=== PATIENT | male | born 1950 | race Two or more races ===

== ENCOUNTER → 2020-12-22 14:51 | Outpatient (BNV) | payer MEDICARE, MEDICAID, SELFPAY | PROVIDERS: PCP Internal Medicine; Visit Provider Internal Medicine Medical Oncology | DX: D68.61 Antiphospholipid syndrome (principal) | CPT/HCPCS: 99212; 99213; 99214 ==

== ENCOUNTER 2021-01-02 06:10 | Outpatient (REF) | payer MEDICARE, MEDICAID, OTHER, SELFPAY ==
[2021-01-02 07:19] LABS: Basophils Percent Auto 0.8 % (0-2); MANUAL DIFF FLAG SCAN; Monocytes Absolute Auto 0.2 X10*3/uL (0.1-1.2); PLT CLUMP 1; SCAN SMEAR FLAG 1
[2021-01-02 07:21] LABS: Eosinophils Absolute Auto 0.1 X10*3/uL (0.0-0.4); Eosinophils Percent Auto 4.2 % (0-4); Hematocrit 43.8 % (42-52); Hemoglobin 14.4 g/dl (14.0-18.0); Lymphocytes Absolute Auto 0.6 X10*3/uL (1.2-4.9); Lymphocytes Percent Auto 22.3 % (20-40); Mean Corpuscular HGB Conc 32.9 g/dl (31.0-36.0); Mean Corpuscular Hemoglobin 28.9 pg (27.0-33.0); Mean Corpuscular Volume 87.8 fL (80-98); Mean Platelet Volume 11.5 fL (9.4-12.4); Monocytes Percent Auto 9.1 % (2-11); Neutrophils Absolute Auto 1.7 X10*3/uL (2.0-8.3); Neutrophils Percent Auto 63.6 % (45-73); Red Blood Count 4.99 X10*6/uL (4.60-5.80); Red Cell Distribution Width 13.2 % (11.0-16.0); White Blood Count 2.6 X10*3/uL (4.8-10.8)
[2021-01-02 07:27] LABS: Platelet Count 38 X10*3/uL (160-400)
[2021-01-02 07:31] LABS: D Dimer < 200 NG/ML
[2021-01-02 07:50] LABS: Alanine Aminotransferase 42 U/L (0-40); Albumin Level 4.2 g/dL (3.5-5.0); Alkaline Phosphatase 58 U/L (39-117); Anion Gap 14 (12-20); Aspartate Amino Transferase 38 U/L (5-37); Bilirubin Total 2.9 mg/dL (0.0-1.0); Blood Urea Nitrogen 26 mg/dL (9-16); Calcium 9.2 mg/dL (8.4-10.2); Carbon Dioxide 25 mmol/L (22-29); Chloride 105 mmol/L (96-108); Estimated Glomerular Filt Rate > 60; Glucose Random 143 mg/dL (60-115); Potassium 4.7 mmol/L (3.3-5.1); Sodium 139 mmol/L (135-145); Total Protein 7.9 g/dL (6.5-8.0)
[2021-01-02 08:10] LABS: SLIDE REVIEW VERIFIED
== END 2021-01-02 06:11 | disposition home or self-care (01) ==
LOC: HO.LAB 06:10
PROVIDERS: PCP Internal Medicine; Visit Provider Internal Medicine Medical Oncology
DX: Z86.718 Personal history of other venous thrombosis and embolism (principal)
CPT/HCPCS: 36415; 80053; 85025; 85379

== ENCOUNTER 2021-08-18 07:04 | Emergency (ER) | payer MEDICARE, OTHER, SELFPAY ==
[2021-08-18 07:12] VITALS: BP 140/73; PULSE 64; RESP 16; TEMP 36.2; O2SAT 97; BMI 24.3
[2021-08-18 07:52] LABS: MANUAL DIFF FLAG SCAN; Monocytes Absolute Auto 0.2 X10*3/uL (0.1-1.2); PLT CLUMP 1; SCAN SMEAR FLAG 1
[2021-08-18 07:54] LABS: Basophils Percent Auto 1.1 % (0-2); Eosinophils Absolute Auto 0.1 X10*3/uL (0.0-0.4); Eosinophils Percent Auto 3.7 % (0-4); Hematocrit 43.6 % (42-52); Hemoglobin 14.2 g/dl (14.0-18.0); Imm Gran Abs Auto 0.01 X10*3/uL (0.00-0.03); Imm Gran Pct Auto 0.4 % (0.0-0.4); Lymphocytes Absolute Auto 0.6 X10*3/uL (1.2-4.9); Mean Corpuscular HGB Conc 32.6 g/dl (31.0-36.0); Monocytes Percent Auto 8.5 % (2-11); Neutrophils Absolute Auto 1.8 X10*3/uL (2.0-8.3); Neutrophils Percent Auto 65.3 % (45-73); Red Blood Count 5.07 X10*6/uL (4.60-5.80); Red Cell Distribution Width 13.6 % (11.0-16.0); White Blood Count 2.7 X10*3/uL (4.8-10.8)
[2021-08-18 08:04] LABS: Anion Gap 14 (12-20); Blood Urea Nitrogen 18 mg/dL (9-16); Carbon Dioxide 20 mmol/L (22-29); Chloride 109 mmol/L (96-108); Creatinine Clr Calc Pharmacy 69.3; Estimated Glomerular Filt Rate > 60; Glucose Random 191 mg/dL (60-115); Potassium 4.8 mmol/L (3.3-5.1); Sodium 138 mmol/L (135-145)
[2021-08-18 08:17] LABS: SLIDE REVIEW VERIFIED
--- NOTE | 2021-08-18 10:09 | ED.GIBLEED ---
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 Patient states for the past 6 days he has had blood on the toilet paper when he wipes, he has not noticed any blood in the toilet but states sometimes his bottom feels wet and he wipes it away and there is blood. 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 Patient denies any back pain abdominal pain fevers, black or bloody stools. Related Data Home Medications Medication Instructions Recorded Confirmed aspirin 81 mg tablet,delayed 1 tab PO DAILY 12/22/20 12/22/20 release atorvastatin 40 mg tablet 1 tab PO BEDTIME 12/22/20 12/22/20 brimonidine 0.2 % eye drops 2 drp OPHTHALMIC (EYE) DAILY 12/22/20 12/22/20 entecavir 0.5 mg tablet 1 tab PO DAILY 12/22/20 12/22/20 losartan 25 mg tablet 1 tab PO DAILY 12/22/20 12/22/20 magnesium oxide 800 mg PO DAILY 12/22/20 12/22/20 tacrolimus 0.5 mg capsule, 0.5 mg PO BEDTIME 12/22/20 12/22/20 immediate-release (Prograf) tacrolimus 1 mg capsule, 1 mg PO DAILY 12/22/20 12/22/20 immediate-release (Prograf) Allergies Allergy/AdvReac Type Severity Reaction Status Date / Time lisinopril AdvReac Unknown cough Verified 07/21/18 00:00 Review of Systems Review of Systems: Yes all other systems are reviewed and are negative PMFSH Past Medical History Medical History Diabetes H/O pleural effusion H/O: CVA (cerebrovascular accident) Hepatitis C HTN (hypertension) Nephrolithiasis Surgical History H/O hernia repair History of surgery on arm Hx of colonoscopy Family History Family History Father Prostate cancer Mother Diabetes HTN (hypertension) Social History Social History Advance Directives: No Advance Directives Information Provided: No Physical Exam Vital Signs: Vital Signs: Last Vital Signs Temp 97.1 F 08/18/21 07:12 Pulse 64 08/18/21 07:12 Resp 16 08/18/21 07:12 BP 140/73 H 08/18/21 07:12 Pulse Ox 97 08/18/21 07:12 Body Mass Index 24.3 Const: General: cooperative, healthy appearing, comfortable, no acute distress and well developed Orientation/consciousness: patient oriented x3 Limitations: no limitations HENMT: Head: Yes normal to inspection Eyes: General: appearance normal, both eyes and all related structures Neck: Neck: Yes normal visual inspection and Yes full ROM Resp: Effort & Inspection: normal respiratory effort and able to speak in complete sentences Auscultation: clear to auscultation bilaterally Cardio: Rate: regular rate Rhythm: regular rhythm Heart sounds: normal S1 and S2 GI: Inspection: Yes normal to inspection Palpation (GI): Soft to palpation and nontender Rectal Exam - Male: Yes External hemorrhoid(s) present (Scant amount of blood) Skin: General skin exam: no rashes or lesions noted Neuro: General: patient oriented x3 Extrem: General: Yes normal to inspection Course Course Course Narrative: Patient is a 71-year-old male with a past medical history of HTN, diabetes, kidney stones, 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 VSS. Physical exam reveals scant amount of blood around his external hemorrhoids, positive stool guaiac test. Will discharge with instructions to follow up if bleeding gets worse and to treat his hemorrhoids with ofae-dby-abliyng medications. MDM - GI Bleed Lab Data Result diagrams: 08/18/21 07:45 08/18/21 07:45 Labs: Lab Results 08/18/21 08/18/21 Range/Units 07:45 07:45 WBC 2.7 L (4.8-10.8) X10*3/uL RBC 5.07 (4.60-5.80) X10*6/uL Hgb 14.2 (14.0-18.0) g/dl Hct 43.6 (42-52) % MCV 86.0 (80-98) fL MCH 28.0 (27.0-33.0) pg MCHC 32.6 (31.0-36.0) g/dl RDW 13.6 (11.0-16.0) % Plt Count TNP MPV Not Reportable Immature Gran % (Auto) 0.4 (0.0-0.4) % Neut % (Auto) 65.3 (45-73) % Lymph % (Auto) 21.0 (20-40) % [place] % (Auto) 8.5 (2-11) % Eos % (Auto) 3.7 (0-4) % Baso % (Auto) 1.1 (0-2) % Lymph # (Auto) 0.6 L (1.2-4.9) X10*3/uL [place] # (Auto) 0.2 (0.1-1.2) X10*3/uL Eos # (Auto) 0.1 (0.0-0.4) X10*3/uL Baso # (Auto) 0.0 (0.0-0.2) X10*3/uL Abs Immat Gran (auto) 0.01 (0.00-0.03) X10*3/uL Absolute Neuts (auto) 1.8 L (2.0-8.3) X10*3/uL Absolute Nucleated RBC 0.000 (0.0-0.012) X10*3/uL Nucleated RBC % (auto) 0.0 (0.0-0.2) /100WBC Smear Tech's Comments VERIFIED Sodium 138 (135-145) mmol/L Potassium 4.8 (3.3-5.1) mmol/L Chloride 109 H (96-108) mmol/L Carbon Dioxide 20 L (22-29) mmol/L Anion Gap 14 (12-20) BUN 18 H (9-16) mg/dL Creatinine 0.85 (0.5-1.4) mg/dL Estim Creat Clear Calc 69.3 Estimated GFR > 60 Random Glucose 191 H (60-115) mg/dL Calcium 9.0 (8.4-10.2) mg/dL Discharge Plan Discharge Clinical Impression: Bleeding external hemorrhoids Patient Disposition: Home, Self-Care Instructions: Hemorrhoids (ED) Additional Instructions: Hoy se encontr? que douglas hemorroides externas est?n sangrando. Sin embargo, calvert an?lisis de amanda est? dentro de los l?mites normales. Compre alguna crema para hemorroides de venta olga, esto ayudar? a encogerlos y deber?an dejar de sangrar. Si el sangrado persiste, consulte con calvert m?dico de atenci?n primaria para explorar otras opciones. Puede seguir tomando calvert anticoagulante. Discutido, si el sangrado empeora mucho o si desarrolla dolor abdominal o de espalda o si la amanda no es solo cm cantidad escasa en el papel higi?yenifer, regrese al departamento de emergencias. Prescriptions: No Action atorvastatin 40 mg tablet 1 tab PO BEDTIME RF: 0 aspirin 81 mg tablet,delayed release (DR/EC) 1 tab PO DAILY RF: 0 losartan 25 mg tablet 1 tab PO DAILY RF: 0 brimonidine 0.2 % drops 2 drp ophthalmic (eye) DAILY RF: 0 tacrolimus [Prograf] 1 mg Capsule 1 mg PO DAILY RF: 0 tacrolimus [Prograf] 0.5 mg Capsule 0.5 mg PO BEDTIME RF: 0 entecavir 0.5 mg tablet 1 tab PO DAILY RF: 0 magnesium oxide 400 mg magnesium Tablet 800 mg PO DAILY RF: 0 Referrals: Amauri Eric MD [Primary Care Provider] - 3 days (If your bleeding continues or gets worse) Print Language: Irish
[2021-08-18 10:46] LABS: OBS Int Ctl Valid YES; OBS1 POSITIVE (NEGATIVE)
== END 2021-08-18 10:48 | disposition home or self-care (01) ==
PROVIDERS: Physician Assistant; Emergency Provider Emergency Medicine Emergency Medical Services; PCP Internal Medicine
DX: K64.8 Other hemorrhoids (principal); K92.2 Gastrointestinal hemorrhage, unspecified; I10 Essential (primary) hypertension; E11.9 Type 2 diabetes mellitus without complications; Z79.01 Long term (current) use of anticoagulants; Z79.899 Other long term (current) drug therapy
CPT/HCPCS: 36415; 80048; 82272; 85025; 99283

== ENCOUNTER 2022-02-27 07:09 | Outpatient (REF) | payer MEDICARE, OTHER, SELFPAY ==
[2022-02-27 08:32] LABS: Basophils Percent Auto 0.4 % (0-2); Eosinophils Absolute Auto 0.1 X10*3/uL (0.0-0.4); Eosinophils Percent Auto 4.3 % (0-4); Hematocrit 42.6 % (42.0-52.0); Hemoglobin 14.5 g/dl (14.0-18.0); Imm Gran Abs Auto 0.01 X10*3/uL (0.00-0.03); Imm Gran Pct Auto 0.4 % (0.0-0.4); Lymphocytes Absolute Auto 0.6 X10*3/uL (1.2-4.9); Lymphocytes Percent Auto 25.5 % (20-40); MANUAL DIFF FLAG SCAN; Mean Corpuscular Hemoglobin 29.8 pg (27.0-33.0); Mean Corpuscular Volume 87.7 fL (80.0-98.0); Monocytes Absolute Auto 0.2 X10*3/uL (0.1-1.2); Monocytes Percent Auto 8.5 % (2-11); Neutrophils Absolute Auto 1.4 x10*3/uL (2.0-8.3); Neutrophils Percent Auto 60.9 % (45-73); PLT CLUMP 1; Red Blood Count 4.86 X10*6/uL (4.60-5.80); Red Cell Distribution Width 13.2 % (11.0-16.0); SCAN SMEAR FLAG 1
[2022-02-27 08:33] LABS: White Blood Count 2.4 X10*3/uL (4.8-10.8)
[2022-02-27 08:50] LABS: Alanine Aminotransferase 67 U/L (0-40); Albumin Level 3.7 g/dL (3.5-5.0); Alkaline Phosphatase 67 U/L (39-117); Anion Gap 13 (12-20); Aspartate Amino Transferase 53 U/L (5-37); Bilirubin Total 3.1 mg/dL (0.0-1.0); Blood Urea Nitrogen 24 mg/dL (9-16); Calcium 9.2 mg/dL (8.4-10.2); Carbon Dioxide 23 mmol/L (22-29); Chloride 107 mmol/L (96-108); Estimated Glomerular Filt Rate > 60; Glucose Random 207 mg/dL (60-115); Magnesium 1.9 mg/dL (1.6-2.6); Potassium 4.6 mmol/L (3.3-5.1); Sodium 138 mmol/L (135-145); Total Protein 7.2 g/dL (6.5-8.0)
[2022-02-27 08:52] LABS: SLIDE REVIEW VERIFIED
[2022-02-28 14:02] LABS: Tacrolimus Prograf 5.8 mcg/L
== END 2022-02-27 07:10 | disposition home or self-care (01) ==
LOC: HO.LABR 07:09
PROVIDERS: PCP Internal Medicine; Visit Provider Internal Medicine Gastroenterology
DX: Z94.4 Liver transplant status (principal); Z79.899 Other long term (current) drug therapy
CPT/HCPCS: 36415; 80053; 80197; 83735; 85025

== ENCOUNTER → 2022-03-05 12:47 | Outpatient (REF) | payer MEDICARE, OTHER, SELFPAY ==
--- NOTE | 2022-03-05 12:51 | CA_ITS ---
Transthoracic Echocardiogram Patient (Last, First, Middle): Lucas Duenas R Gender: Male Date of : 1950 Age: 72 Procedure Date: 03/05/2022 Procedure Type: Transthoracic Echocardiogram Location: OP Height: 165.1 cm Weight: 70.76 kg BSA: 1.78 m2 Heart Rate: bpm BP: 124 / 82 mmHg Java Lead Architect: NINI Referring MD: Gee Rodriguez MD Symptoms: BICUSPID AORTIC VALVE Study Quality: Fair Conclusions: - The left ventricular systolic function is normal. The calculated ejection fraction is 68% by biplane method. - There is a normal trileaflet aortic valve. There is mild calcification of the aortic valve.(previously reported to be bicuspid). Findings Left Ventricle Normal left ventricular cavity size. There is normal left ventricular wall thickness. The left ventricular systolic function is normal. The calculated ejection fraction is 68% by biplane method. There is no evidence of regional wall motion abnormalities. Diastolic function is normal for age. Right Ventricle Normal right ventricular cavity size and systolic function. Atria Both atria are normal in size. Aortic Valve There is a normal trileaflet aortic valve. There is mild calcification of the aortic valve. There is no aortic valve stenosis. There is no aortic valve regurgitation. Mitral Valve The mitral valve appears normal. There is no mitral valve regurgitation. There is no mitral valve stenosis. Pulmonic Valve The pulmonic valve is likely normal. Tricuspid Valve Normal tricuspid valve structure. There is mild tricuspid valve regurgitation. The pulmonary artery systolic pressure is normal. Great Vessels The asc aorta is normal in size. Venous The inferior vena cava is normal in size and collapses greater than 50% with inspiration. Pericardium/Pleural There is a trivial pericardial effusion. Prior Study Comparison Changes noted compared to prior study dated: 07/16/2019. See comments on aortic valve. Measurements 2D Linear Measurements IVSd: 0.80 0.6-0.9/0.6-1.0 cm LVIDd: 4.24 3.9-5.3/4.2-5.9 cm LVIDd Index: 2.38 2.4-3.2/2.2-3.1 cm/m2 LVIDs: 2.58 2.0-3.6 cm LVPWd: 0.90 0.7-1.1 cm LA Diam: 2.30 2.7-3.8/3.0-4.0 cm LAIDs Index: 1.29 1.5-2.3 cm/m2 LV Mass: 137.92 67-162/88-224 g LV Mass Index: 77.49 43-95/49-115 g/m2 LVOT Diam: 1.80 3.0+(-)1.3 cm 2D Systolic Function EF 4C: 67.80 >55% EF 2C: 66.80 >55% EF BiP: 67.60 >55% Mitral Valve MV Pk E: 0.60 MV PK A: 0.87 MV Decel Time: 308.00 E/A: 0.70 E'Lateral: 8.05 E'Medial: 7.94 E/E' Med: 7.60 E/E' Lat: 7.50 PHT: 90.00 MVA PHT: 2.44 Decel [place]: 1.96 Aortic Valve AoV Pk Jaguar: 1.82 AoV Mn Jaguar: 1.14 AoV VTI: 0.37 AoV Pk Grad: 13.00 Aov Mn Grad: 6.00 JUAN ALBERTO Cont.VTI: 1.76 LVOT LVOT Pk Jaguar: 1.22 LVOT Mn Jaguar: 0.88 LVOT VTI: 0.26 LVOT Pk Grad: 6.00 LVOT Mn Grad: 3.00 LVOT Diam: 1.80 LVOT Area: 2.54 Diastolic Function MV Pk E: 0.60 MV Pk A: 0.87 E/A: 0.70 E'Medial: 7.94 E/E' Med: 7.60 E' Laterial: 8.05 E/E' Lat: 7.50 Right Ventricle TAPSE (mm): 32.60 TVS' Jaguar: 17.40 Tricuspid Valve TR Pk Jaguar: 2.70 TR Pk Grad: 29.00 RA Press: 3.00 RVSP: 32.00 Great Vessels Aorta Sinus of Valsalva: 2.70 2.0-3.[address] [place]: 1.94 1.7-3.4 cm Ao Asc: 2.70 2.1-3.4 cm Ao Arch: 2.90 Updated in Other Vendor System with Status of Final Surinder Dillon MD electronically signed on 03/06/2022 10:15:55 AM with status of Final
== END ==
LOC: HO.CARD 12:47
PROVIDERS: PCP Internal Medicine; Visit Provider Internal Medicine Cardiovascular Disease
DX: I35.1 Nonrheumatic aortic (valve) insufficiency (principal)
CPT/HCPCS: 93306

== ENCOUNTER 2022-03-29 06:31 | Outpatient (REF) | payer MEDICARE, OTHER, SELFPAY ==
[2022-03-29 06:51] LABS: MANUAL DIFF FLAG NO
[2022-03-29 07:34] LABS: Basophils Percent Auto 1.1 % (0-2); Eosinophils Absolute Auto 0.1 X10*3/uL (0.0-0.4); Hematocrit 42.3 % (42.0-52.0); Hemoglobin 14.2 g/dl (14.0-18.0); Imm Gran Abs Auto 0.01 X10*3/uL (0.00-0.03); Imm Gran Pct Auto 0.4 % (0.0-0.4); Lymphocytes Absolute Auto 0.7 X10*3/uL (1.2-4.9); Lymphocytes Percent Auto 24.8 % (20-40); Mean Corpuscular HGB Conc 33.6 g/dl (31.0-36.0); Mean Corpuscular Volume 89.4 fL (80.0-98.0); Monocytes Absolute Auto 0.2 X10*3/uL (0.1-1.2); Monocytes Percent Auto 8.4 % (2-11); Neutrophils Absolute Auto 1.7 x10*3/uL (2.0-8.3); Neutrophils Percent Auto 61.3 % (45-73); Red Blood Count 4.73 X10*6/uL (4.60-5.80); Red Cell Distribution Width 13.5 % (11.0-16.0); White Blood Count 2.7 X10*3/uL (4.8-10.8)
[2022-03-29 07:56] LABS: Alanine Aminotransferase 64 U/L (0-40); Albumin Level 3.6 g/dL (3.5-5.0); Alkaline Phosphatase 75 U/L (39-117); Anion Gap 12 (12-20); Aspartate Amino Transferase 57 U/L (5-37); Bilirubin Total 2.7 mg/dL (0.0-1.0); Blood Urea Nitrogen 22 mg/dL (9-16); Calcium 9.3 mg/dL (8.4-10.2); Carbon Dioxide 24 mmol/L (22-29); Chloride 108 mmol/L (96-108); Estimated Glomerular Filt Rate > 60; Glucose Random 184 mg/dL (60-115); Magnesium 1.6 mg/dL (1.6-2.6); Potassium 4.7 mmol/L (3.3-5.1); Sodium 139 mmol/L (135-145); Total Protein 7.3 g/dL (6.5-8.0)
[2022-03-30 14:21] LABS: Tacrolimus Prograf 4.5 mcg/L
== END 2022-03-29 06:32 | disposition home or self-care (01) ==
LOC: HO.LABR 06:31
PROVIDERS: PCP Internal Medicine; Visit Provider Internal Medicine Gastroenterology
DX: Z94.4 Liver transplant status (principal); Z79.899 Other long term (current) drug therapy
CPT/HCPCS: 36415; 80053; 80197; 83735; 85025

== ENCOUNTER 2022-05-17 06:07 | Outpatient (REF) | payer MEDICARE, OTHER, SELFPAY ==
[2022-05-17 07:01] LABS: Basophils Percent Auto 0.4 % (0-2); Eosinophils Absolute Auto 0.1 X10*3/uL (0.0-0.4); Eosinophils Percent Auto 3.5 % (0-4); Hematocrit 40.4 % (42.0-52.0); Hemoglobin 13.8 g/dl (14.0-18.0); Imm Gran Abs Auto 0.01 X10*3/uL (0.00-0.03); Imm Gran Pct Auto 0.4 % (0.0-0.4); Lymphocytes Absolute Auto 0.7 X10*3/uL (1.2-4.9); Lymphocytes Percent Auto 29.1 % (20-40); MANUAL DIFF FLAG SCAN; Mean Corpuscular HGB Conc 34.2 g/dl (31.0-36.0); Mean Corpuscular Hemoglobin 30.8 pg (27.0-33.0); Mean Corpuscular Volume 90.2 fL (80.0-98.0); Monocytes Absolute Auto 0.2 X10*3/uL (0.1-1.2); Monocytes Percent Auto 8.7 % (2-11); Neutrophils Absolute Auto 1.3 x10*3/uL (2.0-8.3); Neutrophils Percent Auto 57.9 % (45-73); Red Blood Count 4.48 X10*6/uL (4.60-5.80); Red Cell Distribution Width 13.2 % (11.0-16.0); SCAN SMEAR FLAG 1
[2022-05-17 07:04] LABS: White Blood Count 2.3 X10*3/uL (4.8-10.8)
[2022-05-17 07:22] LABS: Alanine Aminotransferase 65 U/L (0-40); Albumin Level 3.8 g/dL (3.5-5.0); Alkaline Phosphatase 80 U/L (39-117); Anion Gap 11 (12-20); Aspartate Amino Transferase 53 U/L (5-37); Bilirubin Total 2.7 mg/dL (0.0-1.0); Blood Urea Nitrogen 23 mg/dL (9-16); Calcium 8.9 mg/dL (8.4-10.2); Carbon Dioxide 23 mmol/L (22-29); Chloride 109 mmol/L (96-108); Estimated Glomerular Filt Rate > 60; Glucose Random 154 mg/dL (60-115); Magnesium 1.7 mg/dL (1.6-2.6); Potassium 4.5 mmol/L (3.3-5.1); Sodium 138 mmol/L (135-145); Total Protein 7.5 g/dL (6.5-8.0)
[2022-05-17 07:42] LABS: Mean Platelet Volume 12.6 fL (9.4-12.4); Platelet Count 25 X10*3/uL (160-400); SLIDE REVIEW VERIFIED
[2022-05-19 10:11] LABS: Tacrolimus Prograf 6.1 mcg/L
== END 2022-05-17 06:08 | disposition home or self-care (01) ==
LOC: HO.LABR 06:07
PROVIDERS: PCP Internal Medicine; Visit Provider Internal Medicine Gastroenterology
DX: Z94.4 Liver transplant status (principal); Z79.899 Other long term (current) drug therapy
CPT/HCPCS: 36415; 80053; 80197; 83735; 85025

== ENCOUNTER 2022-08-27 13:43 | Outpatient (REF) | payer MEDICARE, OTHER, SELFPAY ==
[2022-08-27 14:12] LABS: Basophils Percent Auto 0.3 % (0-2); Eosinophils Absolute Auto 0.1 X10*3/uL (0.0-0.4); Eosinophils Percent Auto 2.6 % (0-4); Hemoglobin 13.2 g/dl (14.0-18.0); Imm Gran Abs Auto 0.01 X10*3/uL (0.00-0.03); Imm Gran Pct Auto 0.3 % (0.0-0.4); Lymphocytes Absolute Auto 0.5 X10*3/uL (1.2-4.9); Lymphocytes Percent Auto 14.9 % (20-40); MANUAL DIFF FLAG SCAN; Mean Corpuscular HGB Conc 33.8 g/dl (31.0-36.0); Mean Corpuscular Hemoglobin 29.7 pg (27.0-33.0); Mean Corpuscular Volume 87.8 fL (80.0-98.0); Monocytes Absolute Auto 0.3 X10*3/uL (0.1-1.2); Monocytes Percent Auto 10.9 % (2-11); Neutrophils Absolute Auto 2.1 x10*3/uL (2.0-8.3); PLT CLUMP 1; Red Blood Count 4.44 X10*6/uL (4.60-5.80); Red Cell Distribution Width 12.7 % (11.0-16.0); SCAN SMEAR FLAG 1
[2022-08-27 14:56] LABS: Platelet Count 45 X10*3/uL (160-400); SLIDE REVIEW VERIFIED
[2022-08-27 15:44] LABS: Alanine Aminotransferase 44 U/L (0-40); Albumin Level 3.7 g/dL (3.5-5.0); Alkaline Phosphatase 78 U/L (39-117); Anion Gap 14 (12-20); Aspartate Amino Transferase 39 U/L (5-37); Bilirubin Total 3.7 mg/dL (0.0-1.0); Blood Urea Nitrogen 19 mg/dL (9-16); Calcium 9.5 mg/dL (8.4-10.2); Carbon Dioxide 24 mmol/L (22-29); Chloride 103 mmol/L (96-108); Estimated Glomerular Filt Rate > 60; Glucose Random 215 mg/dL (60-115); Magnesium 1.3 mg/dL (1.6-2.6); Potassium 4.6 mmol/L (3.3-5.1); Sodium 136 mmol/L (135-145); Total Protein 7.2 g/dL (6.5-8.0)
[2022-08-29 22:22] LABS: TS Negative Control Passed; TS Panel A 0; TS Panel B 1; TS Positive Control Passed; TSpotTB Negative (Negative)
== END 2022-08-27 13:44 | disposition home or self-care (01) ==
LOC: HO.LAB 13:43
PROVIDERS: PCP Internal Medicine; Visit Provider Internal Medicine Gastroenterology
DX: Z11.1 Encounter for screening for respiratory tuberculosis (principal); Z94.4 Liver transplant status; Z79.899 Other long term (current) drug therapy; Z20.1 Contact with and (suspected) exposure to tuberculosis
CPT/HCPCS: 36415; 80053; 80197; 83735; 84100; 85025; 86481

== ENCOUNTER 2022-11-15 12:10 | Outpatient (REF) | payer MEDICARE, OTHER, SELFPAY ==
[2022-11-15 13:04] LABS: Basophils Percent Auto 0.4 % (0-2); Eosinophils Absolute Auto 0.1 X10*3/uL (0.0-0.4); Eosinophils Percent Auto 3.9 % (0-4); Lymphocytes Absolute Auto 0.5 X10*3/uL (1.2-4.9); Lymphocytes Percent Auto 16.6 % (20-40); MANUAL DIFF FLAG SCAN; Mean Corpuscular HGB Conc 33.3 g/dl (31.0-36.0); Mean Corpuscular Hemoglobin 29.1 pg (27.0-33.0); Mean Corpuscular Volume 87.2 fL (80.0-98.0); Monocytes Absolute Auto 0.2 X10*3/uL (0.1-1.2); Monocytes Percent Auto 6.7 % (2-11); Neutrophils Absolute Auto 2.1 x10*3/uL (2.0-8.3); Neutrophils Percent Auto 72.4 % (45-73); PLT CLUMP 1; Red Blood Count 4.47 X10*6/uL (4.60-5.80); Red Cell Distribution Width 14.6 % (11.0-16.0); SCAN SMEAR FLAG 1
[2022-11-15 13:17] LABS: Alanine Aminotransferase 43 U/L (0-40); Albumin Level 3.6 g/dL (3.5-5.0); Alkaline Phosphatase 104 U/L (39-117); Anion Gap 11 (12-20); Aspartate Amino Transferase 33 U/L (5-37); Bilirubin Total 3.8 mg/dL (0.0-1.0); Blood Urea Nitrogen 30 mg/dL (9-16); Carbon Dioxide 19 mmol/L (22-29); Chloride 111 mmol/L (96-108); Estimated Glomerular Filt Rate 45; Glucose Random 247 mg/dL (60-115); Magnesium 1.6 mg/dL (1.6-2.6); Phosphorus 3.5 mg/dL (2.7-4.5); Sodium 136 mmol/L (135-145); Total Protein 7.4 g/dL (6.5-8.0)
[2022-11-15 13:18] LABS: White Blood Count 2.8 X10*3/uL (4.8-10.8)
[2022-11-15 13:19] LABS: Platelet Count 34 X10*3/uL (160-400); SLIDE REVIEW VERIFIED
[2022-11-15 14:40] LABS: Creatinine, mg/dL 56.64
[2022-11-15 19:17] LABS: Creatinine, 24Hr Urine 0.9 G/Day (1.0-2.0); Total Volume 24 Hour Urine 1550 mL
[2022-11-16 17:23] LABS: Calcium, 24 Hr Urine 37 mg/24 h; Calcium/Creatinine Ratio 43 mg/g creat (30-210); Creatinine 24Hr Urine 0.87 g/24 h (0.50-2.15)
[2022-11-17 10:03] LABS: Tacrolimus Prograf 9.3 mcg/L
[2022-11-21 12:13] LABS: Testosterone, Total 492 ng/dL (250-1100)
== END 2022-11-15 12:11 | disposition home or self-care (01) ==
LOC: HO.LAB 12:10
PROVIDERS: Absent Provider Internal Medicine Endocrinology, Diabetes & Metabolism; PCP Internal Medicine; Visit Provider Internal Medicine Gastroenterology
DX: N20.0 Calculus of kidney (principal); Z94.4 Liver transplant status; Z79.899 Other long term (current) drug therapy
CPT/HCPCS: 36415; 80053; 80197; 82340; 82570; 83735; 84100; 84403; 85025

== ENCOUNTER 2022-12-12 07:39 | Outpatient (REF) | payer MEDICARE, OTHER, SELFPAY ==
[2022-12-12 11:41] LABS: CDiff Gene PCR NEGATIVE (Negative)
== END 2022-12-12 07:40 | disposition home or self-care (01) ==
LOC: HO.LNP 07:39
PROVIDERS: Visit Provider Internal Medicine Gastroenterology
DX: K59.1 Functional diarrhea (principal); D64.9 Anemia, unspecified; Z94.4 Liver transplant status
CPT/HCPCS: 87493

== ENCOUNTER 2022-12-18 06:28 | Outpatient (REF) | payer MEDICARE, SELFPAY ==
[2022-12-18 07:44] LABS: Hemoglobin 13.9 g/dl (14.0-18.0); Imm Gran Abs Auto 0.01 X10*3/uL (0.00-0.03); Imm Gran Pct Auto 0.3 % (0.0-0.4); MANUAL DIFF FLAG SCAN; Monocytes Absolute Auto 0.3 X10*3/uL (0.1-1.2); SCAN SMEAR FLAG 1
[2022-12-18 07:46] LABS: Basophils Percent Auto 0.7 % (0-2); Eosinophils Absolute Auto 0.1 X10*3/uL (0.0-0.4); Hematocrit 41.4 % (42.0-52.0); Lymphocytes Absolute Auto 0.7 X10*3/uL (1.2-4.9); Lymphocytes Percent Auto 24.9 % (20-40); Mean Corpuscular HGB Conc 33.6 g/dl (31.0-36.0); Mean Corpuscular Hemoglobin 29.5 pg (27.0-33.0); Mean Corpuscular Volume 87.9 fL (80.0-98.0); Monocytes Percent Auto 9.4 % (2-11); Neutrophils Absolute Auto 1.8 x10*3/uL (2.0-8.3); Neutrophils Percent Auto 60.7 % (45-73); PLT ABN DIST 1; PLT CLUMP 1; Red Blood Count 4.71 X10*6/uL (4.60-5.80)
[2022-12-18 08:29] LABS: Alanine Aminotransferase 72 U/L (0-40); Albumin Level 3.6 g/dL (3.5-5.0); Alkaline Phosphatase 108 U/L (39-117); Anion Gap 14 (12-20); Aspartate Amino Transferase 70 U/L (5-37); Bilirubin Total 4.4 mg/dL (0.0-1.0); Blood Urea Nitrogen 33 mg/dL (9-16); Calcium 9.4 mg/dL (8.4-10.2); Carbon Dioxide 21 mmol/L (22-29); Chloride 108 mmol/L (96-108); Estimated Glomerular Filt Rate 55; Glucose Random 185 mg/dL (60-115); Magnesium 1.5 mg/dL (1.6-2.6); Potassium 4.1 mmol/L (3.3-5.1); Sodium 139 mmol/L (135-145); Total Protein 7.4 g/dL (6.5-8.0)
[2022-12-18 08:35] LABS: Platelet Count 35 X10*3/uL (160-400); SLIDE REVIEW VERIFIED
[2022-12-18 09:21] LABS: CDiff Gene PCR NEGATIVE (Negative)
[2022-12-18 11:37] LABS: Adenovirus F 40/41 Not Detected (Not Detect.); Astrovirus Not Detected (Not Detect.); Campylobacter Not Detected (Not Detect.); Cryptosporidium Not Detected (Not Detect.); Cyclospora cayetanensis Not Detected (Not Detect.); E. coli EAEC Not Detected (Not Detect.); E. coli EPEC Not Detected (Not Detect.); E. coli ETEC Not Detected (Not Detect.); E. coli STEC Not Detected (Not Detect.); Entamoeba histolytica Not Detected (Not Detect.); Giardia lamblia Not Detected (Not Detect.); Norovirus GI/GII Not Detected (Not Detect.); Plesiomonas shigelloides Not Detected (Not Detect.); Rotavirus A Not Detected (Not Detect.); Salmonella Not Detected (Not Detect.); Sapovirus Not Detected (Not Detect.); Shigella sp./EIEC Not Detected (Not Detect.); Vibrio Not Detected (Not Detect.); Vibrio Cholerae Not Detected (Not Detect.); Yersinia enterocolitica Not Detected (Not Detect.)
[2022-12-19 11:05] LABS: Tacrolimus Prograf 8.8 NG/ML ((5-20))
== END 2022-12-18 06:29 | disposition home or self-care (01) ==
LOC: HO.LABR 06:28
PROVIDERS: PCP Internal Medicine; Visit Provider Internal Medicine Gastroenterology
DX: K59.1 Functional diarrhea (principal); D84.9 Immunodeficiency, unspecified; Z94.4 Liver transplant status; Z79.899 Other long term (current) drug therapy
CPT/HCPCS: 36415; 80053; 80197; 83735; 85025; 87493; 87507

== ENCOUNTER 2023-03-03 16:46 | Emergency (ER) | payer OTHER, SELFPAY ==
--- NOTE | ~2023-03-03 | CT_ITS ---
EXAMINATION: CT HEAD WITHOUT CONTRAST CLINICAL INFORMATION: Dizziness and generalized weakness COMPARISON: Previous head CT July 2016 TECHNIQUE: Contiguous axial imaging was performed from the skull base to vertex without intravenous administration of contrast. This CT examination was performed using dose optimization techniques as appropriate, variously including the following: *Automated exposure control *Adjustment of mA and/or kV according to patient size (this includes techniques or standardized protocols for targeted exams where dose is matched to indication/reason for exam; i.e. extremities or head) *Use of iterative reconstruction technique DLP: 516 mGy-cm FINDINGS: There is no evidence of an extra-axial collection. There is no evidence of intra or extra-axial hemorrhage. The ventricles and extra-axial CSF spaces are appropriate. There is nonspecific periventricular white matter disease. No mass, mass effect or infarct. Review of bone windows is normal. No skull fracture. Visualized paranasal sinuses, mastoid air cells and middle ears are clear. CT/CT head/brain wo IV con IMPRESSION: No acute findings. Nonspecific periventricular white matter disease similar to prior exams.
[2023-03-03 17:00] VITALS: BP 158/64; PULSE 75; RESP 18; TEMP 36.7; O2SAT 99; BMI 21.9
--- NOTE | 2023-03-03 17:02 | ECG_ITS ---
Test Reason : WEAKNESS Blood Pressure : / mmHG Vent. Rate : 077 BPM Atrial Rate : 077 BPM P-R Int : 168 ms QRS Dur : 076 ms QT Int : 396 ms P-R-T Axes : 024 001 037 degrees QTc Int : 448 ms Normal sinus rhythm Normal ECG When compared with ECG of 02-OCT-2018 16:31, Nonspecific T wave abnormality no longer evident in Inferior leads QT has lengthened Referred By: James Velasco Electronically Signed By:CAROLA OWODS MD
--- NOTE | 2023-03-03 17:11 | ED.GENADULT ---
HPI - General Adult General Chief complaint: Dizziness <NARDA Langley - Last Filed: 03/10/23 09:30> Stated complaint: weak dizzy hx of liver transplant <NARDA Langley - Last Filed: 03/10/23 09:30> Time Seen by Provider: 03/03/23 20:12 <NARDA Langley - Last Filed: 03/10/23 09:30> Source: patient, family, RN notes reviewed, old records reviewed, investment strategist and other (Records from 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 Patient other medical comorbidities include type 2 diabetes, hypertension, hyperlipidemia, osteoporosis, DVT previously on Xarelto but stopped due to history of esophageal varices Patient reports lightheadedness and nausea for the last 5 hours He also describes upper abdominal pain but is unable to qualify or quantify his pain. Per the patient's , the patient has had a dark stool for the last week or so. Denies any black or bloody stool Denies any fevers, chills, chest pain, shortness of breath Per outpatient records, the patient had a tips procedure during admission from 01/09/2023 to 01/16/23 at [facility] <James Beltran - Last Filed: 03/03/23 23:06> Related Data Home medications: Home Medications Medication Instructions Recorded Confirmed aspirin 81 mg tablet,delayed 1 tab PO DAILY 12/22/20 01/02/23 release atorvastatin 40 mg tablet 1 tab PO BEDTIME 12/22/20 01/02/23 brimonidine 0.2 % eye drops 2 drp ophthalmic (eye) DAILY 12/22/20 01/02/23 entecavir 0.5 mg tablet (Baraclude) 1 tab PO DAILY 12/22/20 01/02/23 losartan 25 mg tablet 1 tab PO DAILY 12/22/20 01/02/23 magnesium oxide 800 mg PO DAILY 12/22/20 01/02/23 tacrolimus 0.5 mg capsule, 0.5 mg PO BEDTIME 12/22/20 01/02/23 immediate-release (Prograf) tacrolimus 1 mg capsule, 1 mg PO DAILY 12/22/20 01/02/23 immediate-release (Prograf) glipizide 2.5 mg tablet, extended 2.5 mg PO DAILY 05/23/22 01/02/23 release 24 hr prednisone 20 mg tablet 30 mg PO DAILY 01/02/23 01/02/23 Previous Rx's Medication Instructions Recorded enoxaparin 60 mg/0.6 mL 60 mg (0.6 mL) subcut Q12H #60 mL 08/29/22 subcutaneous syringe <NARDA Langley - Last Filed: 03/10/23 09:30> Allergies/adverse reactions: Allergies Allergy/AdvReac Type Severity Reaction Status Date / Time lisinopril AdvReac Unknown cough Verified 01/02/23 15:34 <NARDA Langley - Last Filed: 03/10/23 09:30> Review of Systems Constitutional: Constitutional: Reports as per HPI, Denies chills, Denies fatigue, Denies fever(s) and Denies headache(s) <James Beltran - Last Filed: 03/03/23 23:06> ENT: Denies headache(s) <James Beltran - Last Filed: 03/03/23 23:06> Cardiovascular: Cardiovascular: Denies chest pain and Denies dyspnea <James Beltran - Last Filed: 03/03/23 23:06> Respiratory: Respiratory: Denies cough and Denies dyspnea <James Beltran - Last Filed: 03/03/23 23:06> Gastrointestinal: Gastrointestinal: Reports abdominal pain, Denies constipation, Reports nausea and Denies vomiting <James Beltran - Last Filed: 03/03/23 23:06> Genitourinary: Genitourinary: Denies difficulty urinating and Denies dysuria <James Beltran - Last Filed: 03/03/23 23:06> Neurologic: Denies headache(s) and Denies focal weakness <James Beltran - Last Filed: 03/03/23 23:06> Endocrine: Endocrine: Denies fatigue <James Beltran - Last Filed: 03/03/23 23:06> [facility] Past Medical History Medical History: Medical History Diabetes H/O pleural effusion H/O: CVA (cerebrovascular accident) Hepatitis C HTN (hypertension) Nephrolithiasis <NARDA Langley - Last Filed: 03/10/23 09:30> Surgical History: Surgical History H/O hernia repair History of surgery on arm Hx of colonoscopy <NARDA Langley - Last Filed: 03/10/23 09:30> Family History Family History: Family History Father Prostate cancer Mother Diabetes HTN (hypertension) <NARDA Langley - Last Filed: 03/10/23 09:30> Social History Social History: Social History Household Members: Spouse Housing: House Are you a primary customer care consultant to a significant other at home: No Do you presently have visiting nurse or other home services: No Alcohol intake: never Patient Tobacco Use Status: Never used Tobacco Smoked in Last 30 Days: No Use of substances other than those prescribed or required for medical reasons: No Advance Directives: No Advance Directives Information Provided: No service: No Current occupational status: employed <NARDA Langley - Last Filed: 03/10/23 09:30> Physical Exam ED Vital Signs: Vital Signs - 24 hr 03/03/23 17:00 03/03/23 20:20 Temperature 98.1 F 98.6 F Pulse Rate 75 85 Respiratory Rate 18 20 Blood Pressure 158/64 H 163/74 H Pulse Oximetry 99 100 Oxygen Delivery Method Room Air Room Air BMI result Body Mass Index 21.9 <NARDA Langley Last Filed: 03/10/23 09:30> Vital Signs - 24 hr 03/03/23 17:00 03/03/23 20:20 Temperature 98.1 F 98.6 F Pulse Rate 75 85 Respiratory Rate 18 20 Blood Pressure 158/64 H 163/74 H Pulse Oximetry 99 100 Oxygen Delivery Method Room Air Room Air BMI result Body Mass Index 21.9 <James OAlverto - Last Filed: 03/03/23 23:06> Const General: healthy appearing, comfortable, no acute distress, alert and awake < Last Filed: 03/03/23 23:06> Nutritional Appearance: well nourished < Last Filed: 03/03/23 23:06> Orientation/consciousness: patient oriented x3 < Last Filed: 03/03/23 23:06> HENMT Head: Yes normocephalic and Yes atraumatic < Last Filed: 03/03/23 23:06> Throat: Yes posterior oropharynx normal < Last Filed: 03/03/23 23:06> Eyes Eyelids: Yes eyelids normal < Last Filed: 03/03/23 23:06> Conjunctivae: conjunctivae normal < Last Filed: 03/03/23 23:06> Sclerae: sclerae normal < Last Filed: 03/03/23 23:06> Corneas: corneas normal < Last Filed: 03/03/23 23:06> Pupils: Equal, round and reactive pupils present < Last Filed: 03/03/23 23:06> EOM: EOMs intact bilaterally < Last Filed: 03/03/23 23:06> Neck Neck: Yes full ROM < Last Filed: 03/03/23 23:06> Resp Effort & Inspection: normal respiratory effort, able to speak in complete sentences, no audible wheezes and not labored <James Last Filed: 03/03/23 23:06> Auscultation: clear to auscultation bilaterally < Last Filed: 03/03/23 23:06> Cardio Rate: regular rate <James Soriay - Last Filed: 03/03/23 23:06> Rhythm: regular rhythm <James Beltran - Last Filed: 03/03/23 23:06> GI Other: Large horizontal, upper abdomen surgical scar. <James Soriay - Last Filed: 03/03/23 23:06> Inspection: No distended <James Soriay - Last Filed: 03/03/23 23:06> Palpation (GI): Soft to palpation, not firm, nontender, no guarding and not rigid <James Soriay - Last Filed: 03/03/23 23:06> Auscultation: normoactive bowel sounds <James Beltran - Last Filed: 03/03/23 23:06> Skin General skin exam: no rashes or lesions noted and elasticity normal <James Soriay - Last Filed: 03/03/23 23:06> Neuro Other: Patient is a poor historian but is able to follow commands <James Beltran - Last Filed: 03/03/23 23:06> General: patient oriented x3 <James Beltran - Last Filed: 03/03/23 23:06> Cranial nerves: Yes CN's II-XII intact bilaterally, Yes Equal, round and reactive pupils present and Yes Bilaterally intact EOM present <James Soriay - Last Filed: 03/03/23 23:06> Cognition (Neuro): normal cognition <James Beltran - Last Filed: 03/03/23 23:06> Extrem Other: Moving all extremities well without any obvious deformities <James Beltran - Last Filed: 03/03/23 23:06> Course Course Course Narrative: RME: 73 yold liver transplant patient presents to the ED for dizziness described as generalized weakness. physical exam negative for neuro deficits. labs, EKG, and head CT ordered <NARDA Langley - Last Filed: 03/10/23 09:30> Reevaluation(s) Reevaluation #1: Discussed with [facility] transfer line. The patient was accepted to the [facility] under the acceptance of Dr Elena <James Beltran - Last Filed: 03/03/23 23:06> Time: 23:05 <James Beltran - Last Filed: 03/03/23 23:06> Medications Administered Discontinued Medications Generic Name Dose Route Start Last Admin Trade Name Mayur PRN Reason Stop Dose Admin Sodium Chloride 1,000 mls @ 999 mls/hr 03/03/23 20:45 03/03/23 22:39 Ns IV 03/03/23 21:45 Infused .Q1H1M CONSTANTINO Infusion Lactulose 40 gm 03/03/23 21:55 03/03/23 23:06 Lactulose 20 Gm/30 Ml Solution PO 03/03/23 21:56 40 gm ONCE ONE Administration Ondansetron HCl 4 mg 03/03/23 20:31 03/03/23 21:08 Ondansetron Hcl 4 Mg/2 Ml Vial IVPUSH 03/03/23 20:32 4 mg ONCE ONE Administration Ondansetron HCl 4 mg 03/03/23 22:35 03/03/23 23:10 Ondansetron Hcl 4 Mg/2 Ml Vial IVPUSH 03/03/23 22:36 Not Given ONCE ONE Pantoprazole Sodium 40 mg 03/03/23 22:35 03/03/23 23:06 Pantoprazole Sodium 40 Mg/10 Ml Vial IVPUSH 03/03/23 22:36 40 mg ONCE ONE Administration <NARDA Langley - Last Filed: 03/10/23 09:30> Medications Administered Discontinued Medications Generic Name Dose Route Start Last Admin Trade Name Mayur PRN Reason Stop Dose Admin Sodium Chloride 1,000 mls @ 999 mls/hr 03/03/23 20:45 03/03/23 22:39 Ns IV 03/03/23 21:45 Infused .Q1H1M CONSTANTINO Infusion Lactulose 40 gm 03/03/23 21:55 03/03/23 23:06 Lactulose 20 Gm/30 Ml Solution PO 03/03/23 21:56 40 gm ONCE ONE Administration Ondansetron HCl 4 mg 03/03/23 20:31 03/03/23 21:08 Ondansetron Hcl 4 Mg/2 Ml Vial IVPUSH 03/03/23 20:32 4 mg ONCE ONE Administration Ondansetron HCl 4 mg 03/03/23 22:35 03/03/23 23:10 Ondansetron Hcl 4 Mg/2 Ml Vial IVPUSH 03/03/23 22:36 Not Given ONCE ONE Pantoprazole Sodium 40 mg 03/03/23 22:35 03/03/23 23:06 Pantoprazole Sodium 40 Mg/10 Ml Vial IVPUSH 03/03/23 22:36 40 mg ONCE ONE Administration <James Beltran - Last Filed: 03/03/23 23:06> Medical Decision Making Medical Decision Making MDM Narrative: 73-year-old male with past medical history significant for hepatitis C virus status post liver transplant 12 years ago presents for evaluation of upper abdominal pain, lightheadedness and nausea. He reports dark stool but is guaiac negative on exam. His hemoglobin is 10.2 with hematocrit of 30.6. Based on [facility] notes his baseline hemoglobin is around 12-13. The patient is hemodynamically stable with stable vital signs. [place] [address]. Given his recent tips procedure, possible upper GI bleed and pancytopenia I feel the patient warrants admission it would likely benefit from transfer to a liver specialist hospital. I have treated the patient with lactulose, Zofran, Protonix. I have so far withheld ceftriaxone and octreotide as the patient has not and vomiting is guaiac negative, so he does not appear to have any active variceal bleed. He does also have a history of duodenal ulcers which may be the source of the patient's dark stool in abdominal pain. <James Beltran - Last Filed: 03/03/23 23:06> Differential Diagnosis Differential Diagnoses: The differential diagnosis associated with the presentation includes <James Beltran - Last Filed: 03/03/23 23:06> Hepatic encephalopathy Upper GI bleed Esophageal varices Pancytopenia Liver cirrhosis <James Beltran - Last Filed: 03/03/23 23:06> Lab Data MDM Lab Attestation statement: I reviewed the patient's lab results. <James Beltran - Last Filed: 03/03/23 23:06> Pancytopenia, chronic transaminitis, hyperammonemia <James Beltran - Last Filed: 03/03/23 23:06> Result Diagrams: 03/03/23 17:19 03/03/23 17:19 <NARDA Langley - Last Filed: 03/10/23 09:30> Labs: Lab Results 03/03/23 03/03/23 03/03/23 Range/Units 17:19 17:19 17:19 WBC 2.5 L (4.8-10.8) X10*3/uL RBC 3.60 L D (4.60-5.80) X10*6/uL Hgb 10.2 L D (14.0-18.0) g/dl Hct 30.6 L D (42.0-52.0) % MCV 85.0 (80.0-98.0) fL MCH 28.3 (27.0-33.0) pg MCHC 33.3 (31.0-36.0) g/dl RDW 16.0 (11.0-16.0) % Plt Count 37 L (160-400) X10*3/uL MPV TNP Immature Gran % (Auto) 0.4 (0.0-0.4) % Neut % (Auto) 73.0 (45-73) % Lymph % (Auto) 14.4 L (20-40) % [place] % (Auto) 7.2 (2-11) % Eos % (Auto) 4.3 H (0-4) % Baso % (Auto) 0.7 (0-2) % Lymph # (Auto) 0.4 L (1.2-4.9) X10*3/uL [place] # (Auto) 0.2 (0.1-1.2) X10*3/uL Eos # (Auto) 0.1 (0.0-0.4) X10*3/uL Baso # (Auto) 0.0 (0.0-0.2) X10*3/uL Abs Immat Gran (auto) 0.01 (0.00-0.03) X10*3/uL Absolute Neuts (auto) 2.0 (2.0-8.3) x10*3/uL Absolute Nucleated RBC 0.000 (0.0-0.012) X10*3/uL Nucleated RBC % (auto) 0.0 (0.0-0.2) /100WBC PT (10.0-13.1) SEC INR (0.9-1.1) APTT (26.0-36.4) SEC Sodium 141 (135-145) mmol/L Potassium 4.4 (3.3-5.1) mmol/L Chloride 113 H (96-108) mmol/L Carbon Dioxide 22 (22-29) mmol/L Anion Gap 10 L (12-20) BUN 22 H (9-16) mg/dL Creatinine 1.33 (0.5-1.4) mg/dL Estim Creat Clear Calc 41.8 Estimated GFR 53 POC Glucose (60-115) mg/dL Random Glucose 339 H (60-115) mg/dL Calcium 9.1 (8.4-10.2) mg/dL Total Bilirubin 5.4 H (0.0-1.0) mg/dL AST 59 H (5-37) U/L ALT 76 H (0-40) U/L Alkaline Phosphatase 142 H (39-117) U/L Ammonia (13-55) umol/L Troponin I High Sens 10.6 (<3.5-35.0) ng/L Total Protein 6.2 L (6.5-8.0) g/dL Albumin 2.9 L (3.5-5.0) g/dL Urine Color Urine Appearance Urine pH (5.0-9.0) Ur Specific [place] (1.005-1.025) Urine Protein (Neg-Trace) mg/dL Urine Glucose (UA) (Negative) mg/dL Urine Ketones (Negative) mg/dL Urine Blood (Negative) Urine Nitrite (Negative) Ur Leukocyte Esterase (Negative) Urine RBC (0-2) /HPF Urine WBC (0-5) /HPF Ur Squamous Epith Cells (0-2) /HPF Urine Bacteria (None Seen) Hyaline Casts (0-2) /LPF Stool Occult Blood (NEGATIVE) 03/03/23 03/03/23 03/03/23 Range/Units 17:20 20:30 20:52 WBC (4.8-10.8) X10*3/uL RBC (4.60-5.80) X10*6/uL Hgb (14.0-18.0) g/dl Hct (42.0-52.0) % MCV (80.0-98.0) fL MCH (27.0-33.0) pg MCHC (31.0-36.0) g/dl RDW (11.0-16.0) % Plt Count (160-400) X10*3/uL MPV Immature Gran % (Auto) (0.0-0.4) % Neut % (Auto) (45-73) % Lymph % (Auto) (20-40) % [place] % (Auto) (2-11) % Eos % (Auto) (0-4) % Baso % (Auto) (0-2) % Lymph # (Auto) (1.2-4.9) X10*3/uL [place] # (Auto) (0.1-1.2) X10*3/uL Eos # (Auto) (0.0-0.4) X10*3/uL Baso # (Auto) (0.0-0.2) X10*3/uL Abs Immat Gran (auto) (0.00-0.03) X10*3/uL Absolute Neuts (auto) (2.0-8.3) x10*3/uL Absolute Nucleated RBC (0.0-0.012) X10*3/uL Nucleated RBC % (auto) (0.0-0.2) /100WBC PT 15.4 H (10.0-13.1) SEC INR 1.3 H (0.9-1.1) APTT 34.4 (26.0-36.4) SEC Sodium (135-145) mmol/L Potassium (3.3-5.1) mmol/L Chloride (96-108) mmol/L Carbon Dioxide (22-29) mmol/L Anion Gap (12-20) BUN (9-16) mg/dL Creatinine (0.5-1.4) mg/dL Estim Creat Clear Calc Estimated GFR POC Glucose 292 H (60-115) mg/dL Random Glucose (60-115) mg/dL Calcium (8.4-10.2) mg/dL Total Bilirubin (0.0-1.0) mg/dL AST (5-37) U/L ALT (0-40) U/L Alkaline Phosphatase (39-117) U/L Ammonia 150 H (13-55) umol/L Troponin I High Sens (<3.5-35.0) ng/L Total Protein (6.5-8.0) g/dL Albumin (3.5-5.0) g/dL Urine Color Urine Appearance Urine pH (5.0-9.0) Ur Specific [place] (1.005-1.025) Urine Protein (Neg-Trace) mg/dL Urine Glucose (UA) (Negative) mg/dL Urine Ketones (Negative) mg/dL Urine Blood (Negative) Urine Nitrite (Negative) Ur Leukocyte Esterase (Negative) Urine RBC (0-2) /HPF Urine WBC (0-5) /HPF Ur Squamous Epith Cells (0-2) /HPF Urine Bacteria (None Seen) Hyaline Casts (0-2) /LPF Stool Occult Blood (NEGATIVE) 03/03/23 03/03/23 Range/Units 21:11 21:13 WBC (4.8-10.8) X10*3/uL RBC (4.60-5.80) X10*6/uL Hgb (14.0-18.0) g/dl Hct (42.0-52.0) % MCV (80.0-98.0) fL MCH (27.0-33.0) pg MCHC (31.0-36.0) g/dl RDW (11.0-16.0) % Plt Count (160-400) X10*3/uL MPV Immature Gran % (Auto) (0.0-0.4) % Neut % (Auto) (45-73) % Lymph % (Auto) (20-40) % [place] % (Auto) (2-11) % Eos % (Auto) (0-4) % Baso % (Auto) (0-2) % Lymph # (Auto) (1.2-4.9) X10*3/uL [place] # (Auto) (0.1-1.2) X10*3/uL Eos # (Auto) (0.0-0.4) X10*3/uL Baso # (Auto) (0.0-0.2) X10*3/uL Abs Immat Gran (auto) (0.00-0.03) X10*3/uL Absolute Neuts (auto) (2.0-8.3) x10*3/uL Absolute Nucleated RBC (0.0-0.012) X10*3/uL Nucleated RBC % (auto) (0.0-0.2) /100WBC PT (10.0-13.1) SEC INR (0.9-1.1) APTT (26.0-36.4) SEC Sodium (135-145) mmol/L Potassium (3.3-5.1) mmol/L Chloride (96-108) mmol/L Carbon Dioxide (22-29) mmol/L Anion Gap (12-20) BUN (9-16) mg/dL Creatinine (0.5-1.4) mg/dL Estim Creat Clear Calc Estimated GFR POC Glucose (60-115) mg/dL Random Glucose (60-115) mg/dL Calcium (8.4-10.2) mg/dL Total Bilirubin (0.0-1.0) mg/dL AST (5-37) U/L ALT (0-40) U/L Alkaline Phosphatase (39-117) U/L Ammonia (13-55) umol/L Troponin I High Sens (<3.5-35.0) ng/L Total Protein (6.5-8.0) g/dL Albumin (3.5-5.0) g/dL Urine Color Yellow Urine Appearance Clear Urine pH 7.5 (5.0-9.0) Ur Specific [place] 1.020 (1.005-1.025) Urine Protein Negative (Neg-Trace) mg/dL Urine Glucose (UA) >=1000 H (Negative) mg/dL Urine Ketones Negative (Negative) mg/dL Urine Blood Negative (Negative) Urine Nitrite Negative (Negative) Ur Leukocyte Esterase Negative (Negative) Urine RBC 0-2 (0-2) /HPF Urine WBC 0-5 (0-5) /HPF Ur Squamous Epith Cells 0-2 (0-2) /HPF Urine Bacteria None Seen (None Seen) Hyaline Casts 0-2 (0-2) /LPF Stool Occult Blood NEGATIVE (NEGATIVE) <NARDA Langley - Last Filed: 03/10/23 09:30> Lab Results 03/03/23 03/03/23 03/03/23 Range/Units 17:19 17:19 17:19 WBC 2.5 L (4.8-10.8) X10*3/uL RBC 3.60 L D (4.60-5.80) X10*6/uL Hgb 10.2 L D (14.0-18.0) g/dl Hct 30.6 L D (42.0-52.0) % MCV 85.0 (80.0-98.0) fL MCH 28.3 (27.0-33.0) pg MCHC 33.3 (31.0-36.0) g/dl RDW 16.0 (11.0-16.0) % Plt Count 37 L (160-400) X10*3/uL MPV TNP Immature Gran % (Auto) 0.4 (0.0-0.4) % Neut % (Auto) 73.0 (45-73) % Lymph % (Auto) 14.4 L (20-40) % [place] % (Auto) 7.2 (2-11) % Eos % (Auto) 4.3 H (0-4) % Baso % (Auto) 0.7 (0-2) % Lymph # (Auto) 0.4 L (1.2-4.9) X10*3/uL [place] # (Auto) 0.2 (0.1-1.2) X10*3/uL Eos # (Auto) 0.1 (0.0-0.4) X10*3/uL Baso # (Auto) 0.0 (0.0-0.2) X10*3/uL Abs Immat Gran (auto) 0.01 (0.00-0.03) X10*3/uL Absolute Neuts (auto) 2.0 (2.0-8.3) x10*3/uL Absolute Nucleated RBC 0.000 (0.0-0.012) X10*3/uL Nucleated RBC % (auto) 0.0 (0.0-0.2) /100WBC PT (10.0-13.1) SEC INR (0.9-1.1) APTT (26.0-36.4) SEC Sodium 141 (135-145) mmol/L Potassium 4.4 (3.3-5.1) mmol/L Chloride 113 H (96-108) mmol/L Carbon Dioxide 22 (22-29) mmol/L Anion Gap 10 L (12-20) BUN 22 H (9-16) mg/dL Creatinine 1.33 (0.5-1.4) mg/dL Estim Creat Clear Calc 41.8 Estimated GFR 53 POC Glucose (60-115) mg/dL Random Glucose 339 H (60-115) mg/dL Calcium 9.1 (8.4-10.2) mg/dL Total Bilirubin 5.4 H (0.0-1.0) mg/dL AST 59 H (5-37) U/L ALT 76 H (0-40) U/L Alkaline Phosphatase 142 H (39-117) U/L Ammonia (13-55) umol/L Troponin I High Sens 10.6 (<3.5-35.0) ng/L Total Protein 6.2 L (6.5-8.0) g/dL Albumin 2.9 L (3.5-5.0) g/dL Urine Color Urine Appearance Urine pH (5.0-9.0) Ur Specific [place] (1.005-1.025) Urine Protein (Neg-Trace) mg/dL Urine Glucose (UA) (Negative) mg/dL Urine Ketones (Negative) mg/dL Urine Blood (Negative) Urine Nitrite (Negative) Ur Leukocyte Esterase (Negative) Urine RBC (0-2) /HPF Urine WBC (0-5) /HPF Ur Squamous Epith Cells (0-2) /HPF Urine Bacteria (None Seen) Hyaline Casts (0-2) /LPF Stool Occult Blood (NEGATIVE) 03/03/23 03/03/23 03/03/23 Range/Units 17:20 20:30 20:52 WBC (4.8-10.8) X10*3/uL RBC (4.60-5.80) X10*6/uL Hgb (14.0-18.0) g/dl Hct (42.0-52.0) % MCV (80.0-98.0) fL MCH (27.0-33.0) pg MCHC (31.0-36.0) g/dl RDW (11.0-16.0) % Plt Count (160-400) X10*3/uL MPV Immature Gran % (Auto) (0.0-0.4) % Neut % (Auto) (45-73) % Lymph % (Auto) (20-40) % [place] % (Auto) (2-11) % Eos % (Auto) (0-4) % Baso % (Auto) (0-2) % Lymph # (Auto) (1.2-4.9) X10*3/uL [place] # (Auto) (0.1-1.2) X10*3/uL Eos # (Auto) (0.0-0.4) X10*3/uL Baso # (Auto) (0.0-0.2) X10*3/uL Abs Immat Gran (auto) (0.00-0.03) X10*3/uL Absolute Neuts (auto) (2.0-8.3) x10*3/uL Absolute Nucleated RBC (0.0-0.012) X10*3/uL Nucleated RBC % (auto) (0.0-0.2) /100WBC PT 15.4 H (10.0-13.1) SEC INR 1.3 H (0.9-1.1) APTT 34.4 (26.0-36.4) SEC Sodium (135-145) mmol/L Potassium (3.3-5.1) mmol/L Chloride (96-108) mmol/L Carbon Dioxide (22-29) mmol/L Anion Gap (12-20) BUN (9-16) mg/dL Creatinine (0.5-1.4) mg/dL Estim Creat Clear Calc Estimated GFR POC Glucose 292 H (60-115) mg/dL Random Glucose (60-115) mg/dL Calcium (8.4-10.2) mg/dL Total Bilirubin (0.0-1.0) mg/dL AST (5-37) U/L ALT (0-40) U/L Alkaline Phosphatase (39-117) U/L Ammonia 150 H (13-55) umol/L Troponin I High Sens (<3.5-35.0) ng/L Total Protein (6.5-8.0) g/dL Albumin (3.5-5.0) g/dL Urine Color Urine Appearance Urine pH (5.0-9.0) Ur Specific [place] (1.005-1.025) Urine Protein (Neg-Trace) mg/dL Urine Glucose (UA) (Negative) mg/dL Urine Ketones (Negative) mg/dL Urine Blood (Negative) Urine Nitrite (Negative) Ur Leukocyte Esterase (Negative) Urine RBC (0-2) /HPF Urine WBC (0-5) /HPF Ur Squamous Epith Cells (0-2) /HPF Urine Bacteria (None Seen) Hyaline Casts (0-2) /LPF Stool Occult Blood (NEGATIVE) 03/03/23 03/03/23 Range/Units 21:11 21:13 WBC (4.8-10.8) X10*3/uL RBC (4.60-5.80) X10*6/uL Hgb (14.0-18.0) g/dl Hct (42.0-52.0) % MCV (80.0-98.0) fL MCH (27.0-33.0) pg MCHC (31.0-36.0) g/dl RDW (11.0-16.0) % Plt Count (160-400) X10*3/uL MPV Immature Gran % (Auto) (0.0-0.4) % Neut % (Auto) (45-73) % Lymph % (Auto) (20-40) % [place] % (Auto) (2-11) % Eos % (Auto) (0-4) % Baso % (Auto) (0-2) % Lymph # (Auto) (1.2-4.9) X10*3/uL [place] # (Auto) (0.1-1.2) X10*3/uL Eos # (Auto) (0.0-0.4) X10*3/uL Baso # (Auto) (0.0-0.2) X10*3/uL Abs Immat Gran (auto) (0.00-0.03) X10*3/uL Absolute Neuts (auto) (2.0-8.3) x10*3/uL Absolute Nucleated RBC (0.0-0.012) X10*3/uL Nucleated RBC % (auto) (0.0-0.2) /100WBC PT (10.0-13.1) SEC INR (0.9-1.1) APTT (26.0-36.4) SEC Sodium (135-145) mmol/L Potassium (3.3-5.1) mmol/L Chloride (96-108) mmol/L Carbon Dioxide (22-29) mmol/L Anion Gap (12-20) BUN (9-16) mg/dL Creatinine (0.5-1.4) mg/dL Estim Creat Clear Calc Estimated GFR POC Glucose (60-115) mg/dL Random Glucose (60-115) mg/dL Calcium (8.4-10.2) mg/dL Total Bilirubin (0.0-1.0) mg/dL AST (5-37) U/L ALT (0-40) U/L Alkaline Phosphatase (39-117) U/L Ammonia (13-55) umol/L Troponin I High Sens (<3.5-35.0) ng/L Total Protein (6.5-8.0) g/dL Albumin (3.5-5.0) g/dL Urine Color Yellow Urine Appearance Clear Urine pH 7.5 (5.0-9.0) Ur Specific [place] 1.020 (1.005-1.025) Urine Protein Negative (Neg-Trace) mg/dL Urine Glucose (UA) >=1000 H (Negative) mg/dL Urine Ketones Negative (Negative) mg/dL Urine Blood Negative (Negative) Urine Nitrite Negative (Negative) Ur Leukocyte Esterase Negative (Negative) Urine RBC 0-2 (0-2) /HPF Urine WBC 0-5 (0-5) /HPF Ur Squamous Epith Cells 0-2 (0-2) /HPF Urine Bacteria None Seen (None Seen) Hyaline Casts 0-2 (0-2) /LPF Stool Occult Blood NEGATIVE (NEGATIVE) <James Beltran - Last Filed: 03/03/23 23:06> Independent Interpretation I performed an independent interpretation of an: EKG (Sinus rhythm with a rate of 77 beats per minute. No ST segment elevations or depressions.) <James Beltran - Last Filed: 03/03/23 23:06> Discharge Plan Discharge Clinical Impression: Acute hepatic encephalopathy, Dark stools <NARDA Langley - Last Filed: 03/10/23 09:30> Patient Disposition: [facility] <NARDA Langley - Last Filed: 03/10/23 09:30> Transfer Details: [facility] <NARDA Langley - Last Filed: 03/10/23 09:30> [facility] <James Devin - Last Filed: 03/03/23 23:06> Prescriptions: No Action atorvastatin 40 mg tablet 1 tab PO BEDTIME aspirin 81 mg tablet,delayed release (DR/EC) 1 tab PO DAILY losartan 25 mg tablet 1 tab PO DAILY brimonidine 0.2 % drops 2 drp ophthalmic (eye) DAILY tacrolimus [Prograf] 1 mg Capsule 1 mg PO DAILY tacrolimus [Prograf] 0.5 mg Capsule 0.5 mg PO BEDTIME entecavir [Baraclude] 0.5 mg tablet 1 tab PO DAILY magnesium oxide 400 mg magnesium Tablet 800 mg PO DAILY glipizide 2.5 mg Tablet Extended Release 24 Hr 2.5 mg PO DAILY enoxaparin 60 mg/0.6 mL Syringe 60 mg SUBCUT Q12H Qty: 60 4RF prednisone 20 mg Tablet 30 mg PO DAILY Patient Comments: decrease dose each week <NARDA Langley - Last Filed: 03/10/23 09:30> Interventions: Acute Care Transfer Worksheet (ED) Last Done: 03/04/23 00:45 <NARDA Langley - Last Filed: 03/10/23 09:30> Discharge Date/Time: 03/04/23 00:56 <NARDA [place] - Last Filed: 03/10/23 09:30>
[2023-03-03 17:38] LABS: INTERNATIONAL NORM RATIO 1.3 (0.9-1.1); Prothrombin Time 15.4 SEC (10.0-13.1)
[2023-03-03 17:41] LABS: Partial Thromboplastin Time 34.4 SEC (26.0-36.4)
[2023-03-03 17:50] LABS: Alanine Aminotransferase 76 U/L (0-40); Albumin Level 2.9 g/dL (3.5-5.0); Alkaline Phosphatase 142 U/L (39-117); Anion Gap 10 (12-20); Aspartate Amino Transferase 59 U/L (5-37); Bilirubin Total 5.4 mg/dL (0.0-1.0); Blood Urea Nitrogen 22 mg/dL (9-16); Calcium 9.1 mg/dL (8.4-10.2); Carbon Dioxide 22 mmol/L (22-29); Chloride 113 mmol/L (96-108); Creatinine Clr Calc Pharmacy 41.8; Estimated Glomerular Filt Rate 53; Glucose Random 339 mg/dL (60-115); Potassium 4.4 mmol/L (3.3-5.1); Sodium 141 mmol/L (135-145); Total Protein 6.2 g/dL (6.5-8.0)
[2023-03-03 17:56] LABS: Troponin-I High Sensitivity 10.6 ng/L (<3.5-35.0)
[2023-03-03 18:34] LABS: MANUAL DIFF FLAG NO
[2023-03-03 18:48] LABS: Eosinophils Absolute Auto 0.1 X10*3/uL (0.0-0.4); Mean Corpuscular HGB Conc 33.3 g/dl (31.0-36.0); SCAN SMEAR FLAG 1
[2023-03-03 18:50] LABS: Basophils Percent Auto 0.7 % (0-2); Eosinophils Percent Auto 4.3 % (0-4); Hematocrit 30.6 % (42.0-52.0); Hemoglobin 10.2 g/dl (14.0-18.0); Imm Gran Abs Auto 0.01 X10*3/uL (0.00-0.03); Imm Gran Pct Auto 0.4 % (0.0-0.4); Lymphocytes Absolute Auto 0.4 X10*3/uL (1.2-4.9); Lymphocytes Percent Auto 14.4 % (20-40); Mean Corpuscular Hemoglobin 28.3 pg (27.0-33.0); Monocytes Absolute Auto 0.2 X10*3/uL (0.1-1.2); Monocytes Percent Auto 7.2 % (2-11); PLT CLUMP 1
[2023-03-03 19:08] LABS: PLT ABN DIST 1; White Blood Count 2.5 X10*3/uL (4.8-10.8)
[2023-03-03 19:09] LABS: Platelet Count 37 X10*3/uL (160-400)
[2023-03-03 20:20] VITALS: BP 163/74; PULSE 85; RESP 20; TEMP 37; O2SAT 100
--- NOTE | 2023-03-03 20:20 | MHC.EDTECH ---
ekg was done not documented
[2023-03-03 20:33] LABS: Glucose, Whole Blood 292 mg/dL (60-115)
--- NOTE | 2023-03-03 20:44 | MHC.EDTECH ---
Called [facility] for records at 2038 per James LABOY,spoke with Saravanan awaiting fax at this time.Provider aware
[2023-03-03 21:03] LABS: Ammonia 150 umol/L (13-55)
[2023-03-03] MEDS: 0.9 % Sodium Chloride 1,000 ML 999 ML IV (21:05)
[2023-03-03] MEDS: ondansetron HCL 4 MG/2 ML VIAL IVPUSH (21:08)
[2023-03-03 21:20] LABS: Appearance Urine Clear; Color Urine Yellow; Glucose Urine UA >=1000 mg/dL (Negative); Leukocyte Esterase Urine Negative (Negative); Nitrite Urine Negative (Negative); PH 7.5 (5.0-9.0); UMIC TRIGGER UACC YES; Urine Blood Negative (Negative); Urine Ketones Negative (Negative); Urine Protein Negative (Neg-Trace)
[2023-03-03 21:20] LABS: OBS Int Ctl Valid YES; OBS1 NEGATIVE (NEGATIVE)
[2023-03-03 21:26] LABS: Bacteria Urine None Seen (None Seen); Hyaline Casts Urine 0-2 /LPF (0-2); RBC Urine 0-2 /HPF (0-2); Squamous Epithelial Cell Urine 0-2 /HPF (0-2); WBC Urine 0-5 /HPF (0-5)
--- NOTE | 2023-03-03 23:00 | PC.NURSE ---
Addendum entered by Dominique Avilez 03/04/23 00:48: RN to RN report given to Tiffany, Pt will be transferred to [facility]. Pt and aware of plan. Original Note: Pt A&O to self and place and year, Pt denies any pain, but reports discomfort to ABD are, states I don't know how to explain . ABD non-tender, + bowel sounds x 4. IV line established, meds given as documented. Pts at bedside.
--- NOTE | 2023-03-03 23:00 | MHC.EDTECH ---
[facility] Transfer line called at 2244 per James LABOY.spoke to Mahnaz gave patient demographics,awaiting a call back at this time.
[2023-03-03] MEDS: Lactulose 20 GM/30 ML SOLUTION 40 GM PO (23:06)
[2023-03-03] MEDS: Pantoprazole Sodium 40 MG/10 ML VIAL IVPUSH (23:06)
--- NOTE | 2023-03-03 23:36 | MHC.EDTECH ---
Corin accepted patient at 2322. Accepted ED to ED. Oziel called for a BLS transfer at 2328 ETA within the hour.RN aware
--- NOTE | 2023-03-03 23:39 | MHC.EDTECH ---
Nurse to Nurse report EXT 2
[2023-03-04] VITALS: BP 160/66; PULSE 92; RESP 16; O2SAT 99
--- NOTE | 2023-03-04 00:25 | MHC.EDTECH ---
EMS arrived at 0021 for transport.RN aware
== END 2023-03-04 00:56 | disposition short-term general hospital (02) ==
PROVIDERS: Physician Assistant; Emergency Provider Student in an Organized Health Care Education/Training Program; PCP Internal Medicine
DX: K76.82 Hepatic encephalopathy (principal); R42 Dizziness and giddiness; R51.9 Headache, unspecified; Z79.899 Other long term (current) drug therapy
CPT/HCPCS: 36415; 70450; 80053; 81001; 82140; 82272; 82947; 84484; 85025; 85610; 85730; 93005; 96361; 96374; 96375; 99285; J2405

== ENCOUNTER 2023-05-26 13:39 | Outpatient (REF) | payer OTHER, SELFPAY | END 2023-05-26 13:40 | disposition home or self-care (01) | LOC: HO.HHCX 13:39 | PROVIDERS: Visit Provider Registered Nurse | DX: R20.0 Anesthesia of skin (principal); R20.2 Paresthesia of skin; M25.571 Pain in right ankle and joints of right foot; M25.572 Pain in left ankle and joints of left foot | CPT/HCPCS: 72110; 73610 ==

== ENCOUNTER 2023-06-02 15:20 | Outpatient (REF) | payer OTHER, SELFPAY | END 2023-06-02 15:21 | disposition home or self-care (01) | LOC: HO.HHCL 15:20 | PROVIDERS: Visit Provider Student in an Organized Health Care Education/Training Program | DX: Z13.89 Encounter for screening for other disorder (principal) ==

== ENCOUNTER 2023-06-02 15:59 | Outpatient (REF) | payer OTHER, SELFPAY ==
--- NOTE | ~2023-06-02 | XR_ITS ---
EXAMINATION: CHEST 2 VIEWS CLINICAL INFORMATION: DYSPNEA / WITH EPISODES OF SOB. COMPARISON: 10/02/2018. TECHNIQUE: PA and lateral views of the chest obtained. FINDINGS: Blunting the costophrenic angle suggests a small right and tiny left pleural effusion with associated basilar consolidation/atelectasis. Mild central vascular prominence but no overt edema. Cardiac silhouette is prominent and deviated slightly to the right due to the rotation and volume loss in the right base no pneumothorax. No acute bony abnormality. Surgical clips, TIPS shunt, and IVC filter noted. 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 XR/XR chest 2V IMPRESSION: Small right and tiny left pleural effusions with associated right greater than left basilar consolidation/atelectasis. Mild central vascular prominence but no overt edema.
[2023-06-02 17:26] LABS: Hemoglobin 10.4 g/dl (14.0-18.0); Imm Gran Abs Auto 0.01 X10*3/uL (0.00-0.03); Imm Gran Pct Auto 0.3 % (0.0-0.4); MANUAL DIFF FLAG SCAN; SCAN SMEAR FLAG 1
[2023-06-02 17:28] LABS: Basophils Percent Auto 0.3 % (0-2); Eosinophils Absolute Auto 0.1 X10*3/uL (0.0-0.4); Eosinophils Percent Auto 1.9 % (0-4); Hematocrit 32.3 % (42.0-52.0); Lymphocytes Absolute Auto 0.3 X10*3/uL (1.2-4.9); Lymphocytes Percent Auto 9.6 % (20-40); Mean Corpuscular HGB Conc 32.2 g/dl (31.0-36.0); Mean Corpuscular Hemoglobin 26.5 pg (27.0-33.0); Mean Corpuscular Volume 82.2 fL (80.0-98.0); Monocytes Absolute Auto 0.3 X10*3/uL (0.1-1.2); Monocytes Percent Auto 9.6 % (2-11); Neutrophils Absolute Auto 2.4 x10*3/uL (2.0-8.3); Neutrophils Percent Auto 78.3 % (45-73); PLT CLUMP 1; Red Blood Count 3.93 X10*6/uL (4.60-5.80); Red Cell Distribution Width 21.4 % (11.0-16.0)
[2023-06-02 17:39] LABS: PLT ABN DIST 1; Platelet Count 29 X10*3/uL (160-400); White Blood Count 3.1 X10*3/uL (4.8-10.8)
[2023-06-02 17:48] LABS: Appearance Urine Clear; Color Urine DK YELLOW; Glucose Urine UA 250 mg/dL (Negative); Leukocyte Esterase Urine Negative (Negative); Nitrite Urine Negative (Negative); Specific Gravity - Urine 1.025 (1.005-1.025); UMIC TRIGGER UA YES; Urine Blood Large (3+) (Negative); Urine Ketones Negative (Negative); Urine Protein 100 (2+) mg/dL (Neg-Trace)
[2023-06-02 17:55] LABS: SLIDE REVIEW VERIFIED
[2023-06-02 17:57] LABS: Bacteria Urine None Seen (None Seen); WBC Urine 0-5 /HPF (0-5)
[2023-06-02 18:06] LABS: Alanine Aminotransferase 319 U/L (0-40); Albumin Level 2.4 g/dL (3.5-5.0); Alkaline Phosphatase 238 U/L (39-117); Anion Gap 17 (12-20); Aspartate Amino Transferase 954 U/L (5-37); Bilirubin Direct 3.6 mg/dL (0.0-0.5); Bilirubin Total 11.3 mg/dL (0.0-1.0); Blood Urea Nitrogen 27 mg/dL (9-16); C Reactive Protein 0.76 mg/dL (< or = 0.50); Calcium 9.3 mg/dL (8.4-10.2); Carbon Dioxide 19 mmol/L (22-29); Chloride 105 mmol/L (96-108); Cholesterol 227 mg/dL; Estimated Glomerular Filt Rate 46; Ferritin 75 ng/mL (20-250); Glucose Random 281 mg/dL (60-115); HDL Cholesterol 19 mg/dL; Iron 229 mcg/dL (45-160); LDL Cholesterol Calculated 154 mg/dl; Percent Iron Saturation 90 % (15-50); Potassium 4.2 mmol/L (3.3-5.1); Sodium 137 mmol/L (135-145); Total Iron Binding Capacity 254 mcg/dL (228-428); Total Protein 6.2 g/dL (6.5-8.0); Triglycerides 272 mg/dL; Unsaturated Iron Binding < 25 ug/dL; Vitamin D 25-OH Total 29.9 ng/mL (>30)
[2023-06-02 18:12] LABS: Estimated Average Glucose 123 mg/dL; Hemoglobin A1c % 5.9 %
[2023-06-02 18:19] LABS: Erythrocyte Sedimentation Rate 25 MM/HR (0-15)
[2023-06-02 18:36] LABS: Folate 14.8 ng/mL (> or = 4.0); Vitamin B12 > 2000 pg/mL (200-900)
[2023-06-02 19:10] LABS: Lactic Acid 2.3 mmol/L (0.5-2.0)
[2023-06-02 19:11] LABS: Reflex Lactate? Lactic Acid Added
[2023-06-03 11:04] LABS: Tacrolimus Prograf 3.7 NG/ML ((5-20))
[2023-06-04 03:30] LABS: HBsAGNum1 0.28 S/CO (0.00-0.99); HIV AB/AG Nonreactive (Nonreactive); HIV Num 1 0.05 S/CO (0.00-0.99); Hepatitis B Surface Antigen Negative (Negative)
[2023-06-04 10:04] LABS: Free Prostate Spec Ag 0.4 ng/mL; Percent Free Prostate Spec Ag 25 % (calc) (>25); Prostate Specific Ag Total 1.6 ng/mL (< OR = 4.0)
[2023-06-04 16:24] LABS: HCV Log PCR <1.18 NOT DETECTED Log IU/mL (NOT DETECTED); HepC Viral Load <15 NOT DETECTED IU/mL (NOT DETECTED)
== END 2023-06-02 16:00 | disposition home or self-care (01) ==
LOC: HO.LAB 15:59
PROVIDERS: PCP Internal Medicine; Visit Provider Student in an Organized Health Care Education/Training Program
DX: Z11.4 Encounter for screening for human immunodeficiency virus [HIV] (principal); Z12.5 Encounter for screening for malignant neoplasm of prostate; M62.81 Muscle weakness (generalized); E11.65 Type 2 diabetes mellitus with hyperglycemia; R06.00 Dyspnea, unspecified; Z79.899 Other long term (current) drug therapy
CPT/HCPCS: 36415; 71046; 80053; 80061; 80197; 81001; 82248; 82306; 82550; 82607; 82728; 82746; 83036; 83540; 83605; 84154; 84443; 85025; 85652; 86140; 87340; 87389; 87522

== ENCOUNTER 2023-06-02 20:40 | Inpatient (IN) | payer MEDICARE, OTHER, SELFPAY ==
--- NOTE | ~2023-06-02 | XR_ITS ---
EXAMINATION: XR CHEST CLINICAL INFORMATION: Wheezing COMPARISON: 06/02/2023 TECHNIQUE: Frontal view of the chest was obtained. FINDINGS: Imaging limited due to rotation. Progressive probably partially loculated pleural effusion on the right is noted. Extensive parenchymal disease persists at the right base with some volume loss. Element of round atelectasis is questioned. Left lung remains grossly clear. Postoperative changes right upper quadrant again noted. No other change. XR/XR chest 1V IMPRESSION: Progressive right-sided pleural effusion. Persistent right basilar parenchymal disease. Consider CT follow-up to further characterize.
--- NOTE | ~2023-06-02 | XR_ITS ---
EXAMINATION: PORTABLE CHEST 1 VIEW CLINICAL INFORMATION: Cough. COMPARISON: 06/02/2023 chest x-ray earlier today and visualized lung bases on the 04/29/2019 CT scan. TECHNIQUE: Portable frontal view of the chest was obtained. FINDINGS: Chronic rounded masslike opacity at the right lung base with associated volume loss has been present on multiple prior studies including the 2019 CT scan. Blunting of the right costophrenic angle suggests layering small right effusion or pleural thickening again similar to prior chest x-ray. No overt edema or pneumothorax. Cardiac silhouette is prominent dilatation to the right hemithorax with associated chronic right-sided volume loss. Linear metallic density consistent with a small likely embolized IVC filter dilma is noted projecting over the left lingula of no acute significance. Surgical clips, TIPS shunt, and IVC filter partially visualized in the upper abdomen XR/XR chest 1V IMPRESSION: Chronic appearing and postoperative changes as described above. I do not appreciate any acute superimposed airspace disease on these chronic changes when compared to the 06/02/2023 chest x-ray earlier today or the visualized lung bases on the 2019 CT scan.
--- NOTE | ~2023-06-02 | CT_ITS ---
EXAMINATION: CT CHEST WITHOUT CONTRAST CLINICAL INFORMATION: Left pleural effusion COMPARISON: Previous chest x-ray most recent May 2023. Previous chest CT scan most recent from 2016 [address] April 2019 TECHNIQUE: Multidetector volumetric CT imaging of the chest was done. Axial MIP volume rendering provided. Sagittal and coronal reformatted images were obtained. This CT examination was performed using dose optimization techniques as appropriate, variously including the following: *Automated exposure control *Adjustment of mA and/or kV according to patient size (this includes techniques or standardized protocols for targeted exams where dose is matched to indication/reason for exam; i.e. extremities or head) *Use of iterative reconstruction technique DLP: 246 mGy-cm FINDINGS: LUNGS: Volume loss to the right hemithorax. New rounded masslike density in the right lower lobe measuring 3 x 4 cm. This extends from the right hilar region to the loculated complex component of the right pleural effusion. Appearance is questionable for round atelectasis. Adjacent more anterior lateral triangular-shaped peripheral or subpleural right lower lobe density measuring 1.3 x 3.8 cm also questionable for round atelectasis. There is compressive atelectasis of the left lower lobe adjacent to the effusion. MEDIASTINUM: Normal heart size. Enlf-hj-kulagait pericardial effusion or increased. No enlarged hilar or mediastinal lymph nodes. CORONARY ARTERY CALCIFICATION: Moderate PLEURA: Loculated right pleural effusion. Superiorly this appears low in attenuation and simple appearing and is new or increased from previous exam. Inferiorly this appears high attenuation partially calcified and loculated with thick pleural rind or split pleural sign. This is similar to previous exam. There is a large left pleural effusion that is new. AXILLA: Bilateral gynecomastia. Anasarca. No chest wall mass. UPPER ABDOMEN: Cirrhotic-appearing liver. Question postsurgical changes from liver transplant. Tips shunt. Splenomegaly. Postsurgical changes in or adjacent to the the stomach new in the interval from 2019. Correlation with surgical history recommended. OSSEOUS STRUCTURES: Degenerative changes of the spine. CT/CT chest wo IV con IMPRESSION: New large left pleural effusion. Complex loculated right pleural effusion adjacent to the right lower lobe and increasing loculated more simple appearing small right pleural effusion superiorly. Probable developing round atelectasis in the right lower lobe. Increasing right lower lobe volume loss. Small to moderate pericardial effusion. Extensive postsurgical changes in the abdomen, cirrhosis and splenomegaly. Fleischner guidelines were followed.
--- NOTE | ~2023-06-02 | US_ITS ---
EXAMINATION: US SCROTUM CLINICAL INFORMATION: Swelling, pain. COMPARISON: None available. TECHNIQUE: A sonogram of the scrotum was performed assessing myles-scale appearance and color Doppler flow. Spectral Doppler analysis of the arterial and venous flow were performed in the testes bilaterally. FINDINGS: Bilateral scrotal skin thickening noted, left greater than right. RIGHT: Right testicle measures 3.6 x 2.0 x 1.9 cm, volume 6.2 mL. Peripheral calcifications noted. No additional focal testicular parenchymal lesions are visualized. Spectral Doppler analysis of the arterial and venous flow is normal in the right testis. Right epididymal head is normal in size. Right epididymal cyst measures 0.3 cm. Small right hydrocele. No right varicocele is seen. Right epididymal Doppler flow is normal. LEFT: Left testicle measures 3.0 x 2.2 x 2.0 cm, volume 6.7 mL. Peripheral calcifications noted. No additional focal testicular parenchymal lesions are visualized. Spectral Doppler analysis of the arterial and venous flow is normal in the left testis. Scrotolith noted. Left epididymal head is normal in size. Left epididymal cyst measures 0.5 cm. Small left hydrocele. No left varicocele is seen. Left epididymal Doppler flow is normal. US/US scrotum IMPRESSION: 1. Bilateral scrotal skin thickening, left greater than right. 2. Small bilateral hydroceles. 3. No findings of testicular torsion.
--- NOTE | ~2023-06-02 | US_ITS ---
EXAMINATION: US ABDOMEN LIMITED CLINICAL INFORMATION: Please check common bile duct. History of liver transplant 2010. COMPARISON: 04/29/2019 CT scan TECHNIQUE: Real-time imaging of the right upper quadrant abdominal viscera. FINDINGS: PANCREAS: Visualized portion of the pancreas grossly unremarkable LIVER: Patient is status post liver transplant. Tips shunt is present. The liver contour is normal. Parenchymal echogenicity is normal. No focal hepatic lesion. There is no intrahepatic biliary duct dilatation seen. Survey Doppler view demonstrates the portal vein to be patent with hepatopedal flow. Flow is seen within the TIPS shunt. GALLBLADDER: Surgically absent in the post transplant state COMMON BILE DUCT: Normal in caliber measuring 0.7 cm in diameter. RIGHT KIDNEY: Normal. No hydronephrosis. No renal calculi or focal parenchymal lesions. The kidney measures 8.4 cm in maximum dimension. FREE FLUID: None. US/US abdomen limited IMPRESSION: Patient is status post liver transplant with patent TIPS shunt. No biliary ductal dilatation.
--- NOTE | ~2023-06-02 | US_ITS ---
EXAMINATION: US VENOUS WITH DOPPLER UPPER EXTREMITY, RIGHT CLINICAL INFORMATION: Edema and swelling COMPARISON: None available. TECHNIQUE: Ultrasound of the upper extremity is performed using compression sonography and color and pulse Doppler flow with assessment of augmentation of flow. There is also imaging and Doppler assessment of the jugular and subclavian veins. Spectral analysis with color-flow imaging is performed. FINDINGS: Respiratory variation, normal compression, and augmented flow are noted throughout the upper extremity including the axillary, brachial, cubital, and radial and ulnar veins. There is normal flow in the internal jugular and subclavian veins. There is no visible deep or superficial thrombophlebitis. If the patient's symptoms progress, a followup ultrasound in 5 -7 days might be of value to exclude proximal propagation from a nonvisualized distal arm vein. US/US venous duplex UE RT IMPRESSION: No DVT demonstrated in the right upper extremity
[2023-06-02 20:47] VITALS: BP 114/51; PULSE 79; RESP 19; TEMP 37; O2SAT 96; BMI 23.6
--- NOTE | 2023-06-02 21:28 | ECG_ITS ---
Test Reason : Rhabdomyolysis Blood Pressure : / mmHG Vent. Rate : 074 BPM Atrial Rate : 074 BPM P-R Int : 186 ms QRS Dur : 076 ms QT Int : 382 ms P-R-T Axes : 029 009 027 degrees QTc Int : 424 ms Normal sinus rhythm Nonspecific T wave abnormality Abnormal ECG When compared with ECG of 03-MAR-2023 17:11, Nonspecific T wave abnormality now evident in Inferior leads Nonspecific T wave abnormality now evident in Lateral leads Referred By: Carole Martínez Electronically Signed By:CAROLA WOODS MD
--- NOTE | 2023-06-02 21:58 | ED_ITS ---
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 Patient has a significant past medical history of liver transplant and 2011 and has been experiencing increased yellowing of the eyes for 1 month and over the past week and a half is been having significant cramping and leg pain bilaterally but denies any associated symptoms such as headache, dizziness, shortness of breath, chest pain/palpitations, fevers/chills, abdominal pain, blood or black stool on defecation and denies any urinary complaints. Related Data Home Medications Medication Instructions Recorded Confirmed aspirin 81 mg tablet,delayed 1 tab PO DAILY 12/22/20 01/02/23 release atorvastatin 40 mg tablet 1 tab PO BEDTIME 12/22/20 01/02/23 brimonidine 0.2 % eye drops 2 drp ophthalmic (eye) DAILY 12/22/20 01/02/23 entecavir 0.5 mg tablet (Baraclude) 1 tab PO DAILY 12/22/20 01/02/23 losartan 25 mg tablet 1 tab PO DAILY 12/22/20 01/02/23 magnesium oxide 800 mg PO DAILY 12/22/20 01/02/23 tacrolimus 0.5 mg capsule, 0.5 mg PO BEDTIME 12/22/20 01/02/23 immediate-release (Prograf) tacrolimus 1 mg capsule, 1 mg PO DAILY 12/22/20 01/02/23 immediate-release (Prograf) glipizide 2.5 mg tablet, extended 2.5 mg PO DAILY 05/23/22 01/02/23 release 24 hr prednisone 20 mg tablet 30 mg PO DAILY 01/02/23 01/02/23 Previous Rx's Medication Instructions Recorded enoxaparin 60 mg/0.6 mL 60 mg (0.6 mL) subcut Q12H #60 mL 08/29/22 subcutaneous syringe Allergies Allergy/AdvReac Type Severity Reaction Status Date / Time lisinopril AdvReac Unknown cough Verified 01/02/23 15:34 Review of Systems Review of Systems: Pertinent positives and negatives as stated in HPI [facility] Past Medical History Source: nursing notes reviewed Medical History Diabetes H/O pleural effusion H/O: CVA (cerebrovascular accident) Hepatitis C HTN (hypertension) Nephrolithiasis Surgical History H/O hernia repair History of surgery on arm Hx of colonoscopy Family History Family History Father Prostate cancer Mother Diabetes HTN (hypertension) Social History Social History Household Members: Spouse Housing: House Are you a primary critical care specialist to a significant other at home: No Do you presently have visiting nurse or other home services: No Alcohol intake: never Patient Tobacco Use Status: Never used Tobacco Advance Directives: No Advance Directives Information Provided: No service: No Current occupational status: employed Physical Exam ED Vital Signs: Vital Signs - 24 hr 06/02/23 20:47 06/02/23 23:01 Temperature 98.6 F 98.6 F Pulse Rate 79 82 Respiratory Rate 19 14 Blood Pressure 114/51 L 123/66 Pulse Oximetry 96 97 Oxygen Delivery Method Room Air Room Air BMI result Body Mass Index 23.6 VITAL SIGNS: Reviewed. GENERAL: Well developed, well nourished, in no acute distress. HEAD: Normocephalic/atraumatic EYES: PERRLA, EOMI, scleral icterus EARS: Ext canals without abnormality NOSE: Nares patent bilateral OROPHARYNX: no oral lesions noted, posterior pharynx clear NECK: Supple, no adenopathy LUNGS: Normal breath sounds. No adventitious sounds or accessory muscle use. SpO2<96> CARDIOVASCULAR: Regular rate and rhythm without noted murmurs, no JVD at best 1+ pitting edema to bilateral lower extremity ABDOMEN: Soft, non-tender, non-distended with bowel sounds. MUSCULOSKELETAL: No tenderness, deformities, or effusions noted on gross inspection. EXTREMITIES: No cyanosis, clubbing or edema. SKIN: Inspection of the skin reveals no rashes,+jaundice NEUROLOGIC: Alert and oriented x 3. Strength and sensation to light touch were grossly intact x 4. 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 In addition, it appears that patient may have had a tips procedure in December of this year. At this time I am repeat lab work, the ultrasound, patient is otherwise hemodynamically stable, IV will be placed and patient will begin receiving IV fluids, there is no clinical or historical suggestion of infection or acute bleeding. The family and the patient states that they did see Dr. Correa last Friday who recommended that he follow-up with his primary care provider, which he did today. 2216: I spoke with the [facility] transfer center, provided the liver labs as well as a CPK, informed them that the ultrasound to evaluate venous occlusion is underway and patient is otherwise stable and they will reach out to the transplant team. I reviewed all investigations which show hematologic indices which are chronically stable, chemistries demonstrate a lactic acidosis secondary to rhabdomyolysis, patient has corresponding liver failure labs, ultrasound not significant for any venous occlusion, TIPS reported as being patent and in addition there is no dilatation of the CBD. Will continue to hydrate patient and suspect that underlying derangement may be secondary to dehydration. 2320: I discussed case with Dr. Wilks, transplant team at [facility], who agrees with plans to rehydrate, all labs as well as ultrasound findings were discussed with her and her recommendation is that an update be called tomorrow to review patient's liver labs and overall kidney and CPK values. 2330: I discussed case with , hospitalist, who accepts admission. Differential Diagnosis Differential Diagnoses: The differential diagnosis associated with the presentation includes Please see the discussion above Consult Healthcare Provider Management of the patient was discussed with: Hospitalist Please see the discussion above Lab Data MDM Lab Attestation statement: I reviewed the patient's lab results. Please see the discussion above 06/02/23 22:24 06/02/23 22:24 Labs: Lab Results 06/02/23 06/02/23 06/02/23 Range/Units 22:24 22:24 22:24 WBC 2.8 L (4.8-10.8) X10*3/uL RBC 3.30 L (4.60-5.80) X10*6/uL Hgb 9.0 L (14.0-18.0) g/dl Hct 27.0 L (42.0-52.0) % MCV 81.8 (80.0-98.0) fL MCH 27.3 (27.0-33.0) pg MCHC 33.3 (31.0-36.0) g/dl RDW 21.3 H (11.0-16.0) % Plt Count 35 L (160-400) X10*3/uL MPV TNP Immature Gran % (Auto) 0.0 (0.0-0.4) % Neut % (Auto) 72.6 (45-73) % Lymph % (Auto) 12.1 L (20-40) % [place] % (Auto) 13.1 H (2-11) % Eos % (Auto) 1.8 (0-4) % Baso % (Auto) 0.4 (0-2) % Lymph # (Auto) 0.3 L (1.2-4.9) X10*3/uL [place] # (Auto) 0.4 (0.1-1.2) X10*3/uL Eos # (Auto) 0.1 (0.0-0.4) X10*3/uL Baso # (Auto) 0.0 (0.0-0.2) X10*3/uL Abs Immat Gran (auto) 0.00 (0.00-0.03) X10*3/uL Absolute Neuts (auto) 2.1 (2.0-8.3) x10*3/uL Absolute Nucleated RBC 0.000 (0.0-0.012) X10*3/uL Nucleated RBC % (auto) 0.0 (0.0-0.2) /100WBC PT 23.0 H (10.0-13.1) SEC INR 2.0 H (0.9-1.1) Sodium 132 L (135-145) mmol/L Potassium 3.9 (3.3-5.1) mmol/L Chloride 106 (96-108) mmol/L Carbon Dioxide 18 L (22-29) mmol/L Anion Gap 12 (12-20) BUN 27 H (9-16) mg/dL Creatinine 1.56 H (0.5-1.4) mg/dL Estim Creat Clear Calc 36.6 Estimated GFR 44 Random Glucose 316 H (60-115) mg/dL Calcium 8.4 D (8.4-10.2) mg/dL Total Bilirubin 9.4 H (0.0-1.0) mg/dL AST 840 H (5-37) U/L ALT 285 H (0-40) U/L Alkaline Phosphatase 199 H (39-117) U/L Total Protein 5.2 L (6.5-8.0) g/dL Albumin 2.0 L (3.5-5.0) g/dL Lipase 69 (8-78) U/L Ethyl Alcohol < 10 mg/dL Independent Interpretation I performed an independent interpretation of an: EKG Interpretation: Normal sinus rhythm, HR-74, no STEMI, HI/QRS/QTC is within normal limits. Radiology Impression Radiologist Impression: No venous occlusion, otherwise my interpretation is in agreement with radiology's impression. Independent Historian Clinical information obtained from an independent historian. History obtained from or confirmed by: Spouse External Record Review External record reviewed: Outpatient record and Prior outpatient labs Critical Care Time Critical Care Time Critical Care Time: Yes Total Critical Care Time: 60 Attestation: I personally attest to this time spent taking care of the patient. Discharge Plan Discharge Clinical Impression: Acute renal failure due to rhabdomyolysis, Liver failure Patient Disposition: Admitted As Inpatient Prescriptions: No Action atorvastatin 40 mg tablet 1 tab PO BEDTIME aspirin 81 mg tablet,delayed release (DR/EC) 1 tab PO DAILY losartan 25 mg tablet 1 tab PO DAILY brimonidine 0.2 % drops 2 drp ophthalmic (eye) DAILY tacrolimus [Prograf] 1 mg Capsule 1 mg PO DAILY tacrolimus [Prograf] 0.5 mg Capsule 0.5 mg PO BEDTIME entecavir [Baraclude] 0.5 mg tablet 1 tab PO DAILY magnesium oxide 400 mg magnesium Tablet 800 mg PO DAILY glipizide 2.5 mg Tablet Extended Release 24 Hr 2.5 mg PO DAILY enoxaparin 60 mg/0.6 mL Syringe 60 mg SUBCUT Q12H Qty: 60 4RF prednisone 20 mg Tablet 30 mg PO DAILY Patient Comments: decrease dose each week
[2023-06-02 22:28] LABS: MANUAL DIFF FLAG NO
[2023-06-02 22:34] LABS: Mean Corpuscular HGB Conc 33.3 g/dl (31.0-36.0); Red Cell Distribution Width 21.3 % (11.0-16.0); SCAN SMEAR FLAG 1
[2023-06-02 22:36] LABS: Basophils Percent Auto 0.4 % (0-2); Eosinophils Absolute Auto 0.1 X10*3/uL (0.0-0.4); Eosinophils Percent Auto 1.8 % (0-4); Lymphocytes Absolute Auto 0.3 X10*3/uL (1.2-4.9); Lymphocytes Percent Auto 12.1 % (20-40); Mean Corpuscular Hemoglobin 27.3 pg (27.0-33.0); Mean Corpuscular Volume 81.8 fL (80.0-98.0); Monocytes Absolute Auto 0.4 X10*3/uL (0.1-1.2); Monocytes Percent Auto 13.1 % (2-11); Neutrophils Absolute Auto 2.1 x10*3/uL (2.0-8.3); Neutrophils Percent Auto 72.6 % (45-73); Platelet Count 35 X10*3/uL (160-400); White Blood Count 2.8 X10*3/uL (4.8-10.8)
[2023-06-02 22:37] LABS: PLT ABN DIST 1
[2023-06-02] MEDS: 0.9 % Sodium Chloride 1,000 ML 999 ML IV (22:42)
[2023-06-02 23:01] VITALS: BP 123/66; PULSE 82; RESP 14; TEMP 37; O2SAT 97
[2023-06-02 23:02] LABS: Alanine Aminotransferase 285 U/L (0-40); Alkaline Phosphatase 199 U/L (39-117); Anion Gap 12 (12-20); Aspartate Amino Transferase 840 U/L (5-37); Bilirubin Total 9.4 mg/dL (0.0-1.0); Blood Urea Nitrogen 27 mg/dL (9-16); Calcium 8.4 mg/dL (8.4-10.2); Carbon Dioxide 18 mmol/L (22-29); Chloride 106 mmol/L (96-108); Creatinine Clr Calc Pharmacy 36.6; Estimated Glomerular Filt Rate 44; Ethanol < 10 mg/dL; Glucose Random 316 mg/dL (60-115); Lipase 69 U/L (8-78); Potassium 3.9 mmol/L (3.3-5.1); Sodium 132 mmol/L (135-145); Total Protein 5.2 g/dL (6.5-8.0)
--- NOTE | 2023-06-02 23:48 | P.HPHOSP_ITS ---
History of Present Illness Date of Service: 06/02/23 Chief Complaint: Weakness 73-year-old male with past medical history of cardiolipin antibody syndrome, hepatitis-C, liver cirrhosis, status post liver transplant 2010 at [facility], diabetes, hypertension, presents the hospital with complaints of muscle aches and weakness. Patient is Swazi-speaking but speaks some Amharic, is here with his , and state that his symptoms started about 2 weeks ago, he also noticed a change in his color to yellow, he has had significant muscle aches, and weakness in general. He otherwise denies any chest pain, no shortness of breath, no abdominal pain nausea or vomiting, no recent diarrhea, no urinary symptoms and no lower extremity edema. No fever or chills. Compliant with his medications. No recent fall or trauma. On arrival to the ED patient hemodynamically stable with no significant abnormal vitals Labs are significant for WBC count of 3.1, hemoglobin of 10.4, which is around his baseline, INR of 2.0, PT of 23, sodium 132, creatinine of 1.56 with a baseline of around 1.3, bilirubin of 3.6, AST of 954, ALT of 319, alk-phos of 238, and CPK of 27,508. Case was discussed with his Hematology team at [facility] by the ED physician, at this time there is no indication for transfer as his LFTs have revealed im provement on repeat labs. Patient will be admitted for further monitoring and placed on IV fluids Review of Systems Review of Systems: Yes all other systems are reviewed and are negative [facility] Medical History Diabetes H/O pleural effusion H/O: CVA (cerebrovascular accident) Hepatitis C HTN (hypertension) Nephrolithiasis Family History Father Prostate cancer Mother Diabetes HTN (hypertension) Surgical History H/O hernia repair History of liver transplant History of surgery on arm Hx of colonoscopy Social History Household Members: Spouse Housing: House Are you a primary care center manager to a significant other at home: No Do you presently have visiting nurse or other home services: No Alcohol intake: never Patient Tobacco Use Status: Never used Tobacco Advance Directives: No Advance Directives Information Provided: No Nutrition Risks: No Nutritional Risk service: No Current occupational status: employed Meds Allergies Allergy/AdvReac Type Severity Reaction Status Date / Time lisinopril AdvReac Unknown cough Verified 01/02/23 15:34 Active Medications: Current Medications Sodium Chloride (Ns) 1,000 mls @ 999 mls/hr IV .Q1H1M CONSTANTINO Stop: 06/03/23 00:30 Pharmacy Consult (Consult Rx Perform Med Rec) 1 each MISCELLANE ONCE PRN PRN Reason: Consult order Home Medications Medication Instructions Recorded Confirmed Last Taken Type aspirin 81 mg tablet,delayed 1 tab PO DAILY 12/22/20 01/02/23 Unknown History release atorvastatin 40 mg tablet 1 tab PO BEDTIME 12/22/20 01/02/23 Unknown History brimonidine 0.2 % eye drops 2 drp ophthalmic (eye) DAILY 12/22/20 01/02/23 Unknown History entecavir 0.5 mg tablet (Baraclude) 1 tab PO DAILY 12/22/20 01/02/23 Unknown History losartan 25 mg tablet 1 tab PO DAILY 12/22/20 01/02/23 Unknown History magnesium oxide 800 mg PO DAILY 12/22/20 01/02/23 Unknown History tacrolimus 0.5 mg capsule, 0.5 mg PO BEDTIME 12/22/20 01/02/23 Unknown History immediate-release (Prograf) tacrolimus 1 mg capsule, 1 mg PO DAILY 12/22/20 01/02/23 Unknown History immediate-release (Prograf) glipizide 2.5 mg tablet, extended 2.5 mg PO DAILY 05/23/22 01/02/23 Unknown History release 24 hr prednisone 20 mg tablet 30 mg PO DAILY 01/02/23 01/02/23 Unknown History Physical Exam Vital Signs and Narrative: Vital Signs: Last Vital Signs Temp 98.6 F 06/02/23 23:01 Pulse 82 06/02/23 23:01 Resp 14 06/02/23 23:01 BP 123/66 06/02/23 23:01 Pulse Ox 97 06/02/23 23:01 O2 Del Method Room Air 06/02/23 23:01 BMI result Body Mass Index 23.6 Const: Other: Appears cachectic General: cooperative and no acute distress Orientation/consciousness: patient oriented x3 Eyes: General: appearance normal, both eyes and all related structures Resp: Effort & Inspection: normal respiratory effort Auscultation: clear to auscultation bilaterally Cardio: Rate: regular rate Rhythm: regular rhythm GI: Palpation (GI): Soft to palpation Auscultation: normal bowel sounds Skin: Other: Jaundice General skin exam: no rashes or lesions noted Neuro: General: patient oriented x3 Cognition (Neuro): normal cognition Extrem: Other: Muscular ache all over his body General: Yes normal to inspection and Yes no pedal edema Results Labs 06/02/23 22:24 06/02/23 22:24 Labs: Laboratory Results - last 24 hr 06/02/23 06/02/23 06/02/23 22:24 22:24 22:24 MCV 81.8 MCH 27.3 MCHC 33.3 RDW 21.3 H Plt Count 35 L MPV TNP Immature Gran % (Auto) 0.0 Neut % (Auto) 72.6 Lymph % (Auto) 12.1 L [place] % (Auto) 13.1 H Eos % (Auto) 1.8 Baso % (Auto) 0.4 Lymph # (Auto) 0.3 L [place] # (Auto) 0.4 Eos # (Auto) 0.1 Baso # (Auto) 0.0 Abs Immat Gran (auto) 0.00 Absolute Neuts (auto) 2.1 Absolute Nucleated RBC 0.000 Nucleated RBC % (auto) 0.0 PT 23.0 H INR 2.0 H Anion Gap 12 Estim Creat Clear Calc 36.6 Estimated GFR 44 Random Glucose 316 H Calcium 8.4 D Total Bilirubin 9.4 H AST 840 H ALT 285 H Alkaline Phosphatase 199 H Total Protein 5.2 L Albumin 2.0 L Lipase 69 Ethyl Alcohol < 10 Imaging Radiologist's Impressions: Impressions Chest X-Ray 06/02/23 21:49 IMPRESSION: Chronic appearing and postoperative changes as described above. I do not appreciate any acute superimposed airspace disease on these chronic changes when compared to the 06/02/2023 chest x-ray earlier today or the visualized lung bases on the 2019 CT scan. Abdomen Ultrasound 06/02/23 22:19 IMPRESSION: Patient is status post liver transplant with patent TIPS shunt. No biliary ductal dilatation. Assessment and Plan (1) Transaminitis: Status: Acute (2) Rhabdomyolysis: Status: Acute (3) Acute renal failure due to rhabdomyolysis: Status: Acute Plan 73-year-old male with past medical history of liver transplant secondary to hepatitis-C liver cirrhosis presents the hospital with complaints of weakness and muscle aches found to have rhabdomyolysis and transaminitis # rhabdomyolysis - unclear etiology, possible statin induced - no recent trauma, or injury/fall - has elevated CPK of 27,000, improved after some IV fluid - will continue aggressive hydration - monitor CPK level - monitor CMP # transaminitis - the setting of liver transplant in 2011 - no evidence of sepsis, improved after IV fluids - likely secondary to rhabdo - will continue IV fluids - continue to monitor liver panel - ED physician spoke to hepatology team at [facility], as long as his liver numbers are improving there is no indication for transfer to [facility] at this time, if transaminitis possess or liver panel appears worse, patient will need transfer to [facility] # [place] - [place] Abdo - continue aggressive hydration - follow kidney function # diabetes - hold oral antihyperglycemics - will place on low-dose sliding scale insulin - diabetic diet # hypertension - stable BP - resume antihypertensives once kidney function at baseline # liver transplant - in 2010 - continue prednisone, tacrolimus DVT prophylaxis: Lovenox Given patient's need for further monitoring of his liver function as well as the elevated CPK requiring aggressive IV hydration patient will require minimum 2 nights inpatient hospital stay for further management and monitoring Time Spent With Patient Time: Total time managing care of this patient today ____ minutes. Quality Stroke Does the patient have a stroke diagnosis?: No VTE Prior VTE?: No VTE Risk Level:: Medical - moderate - high VTE Device Contraindication: Treatment Not Indicated VTE Drug Contraindication: N/A - Med Ordered
[2023-06-03 00:05] LABS: Appearance Urine Cloudy; Color Urine Dark Yellow; Glucose Urine UA 100 mg/dL (Negative); Leukocyte Esterase Urine Small (1+) (Negative); Nitrite Urine Negative (Negative); PH 5.5 (5.0-9.0); Specific Gravity - Urine 1.025 (1.005-1.025); UMIC TRIGGER UACC YES; Urine Blood Large (3+) (Negative); Urine Ketones Negative (Negative); Urine Protein 300 (3+) mg/dL (Neg-Trace)
[2023-06-03] MEDS: oxyCODONE HCl Immed Release 5 MG TABLET PO (00:05)
[2023-06-03] MEDS: 0.9 % Sodium Chloride 1,000 ML 999 ML IV (00:07)
[2023-06-03 00:17] LABS: Bacteria Urine None Seen (None Seen); Granular Casts Urine Present; Hyaline Casts Urine 0-2 /LPF (0-2); UACC Culture Trigger YES; WBC Urine 0-5 /HPF (0-5)
[2023-06-03] MEDS: Lactated Ringers 1,000 ML 150 ML IVCONT ×2 (02:31→08:35)
[2023-06-03 05:22] VITALS: BP 156/77; PULSE 85; RESP 17; TEMP 36.8; O2SAT 96
[2023-06-03 05:58] LABS: Basophils Percent Auto 0.7 % (0-2); Eosinophils Absolute Auto 0.1 X10*3/uL (0.0-0.4); Monocytes Absolute Auto 0.3 X10*3/uL (0.1-1.2); Red Blood Count 3.46 X10*6/uL (4.60-5.80); SCAN SMEAR FLAG 1
[2023-06-03 06:00] LABS: Eosinophils Percent Auto 3.3 % (0-4); Hematocrit 28.4 % (42.0-52.0); Hemoglobin 9.3 g/dl (14.0-18.0); Lymphocytes Absolute Auto 0.4 X10*3/uL (1.2-4.9); Lymphocytes Percent Auto 13.3 % (20-40); MANUAL DIFF FLAG SCAN; Mean Corpuscular HGB Conc 32.7 g/dl (31.0-36.0); Mean Corpuscular Hemoglobin 26.9 pg (27.0-33.0); Mean Corpuscular Volume 82.1 fL (80.0-98.0); Neutrophils Absolute Auto 2.2 x10*3/uL (2.0-8.3); Neutrophils Percent Auto 71.7 % (45-73); PLT CLUMP 1; Red Cell Distribution Width 21.2 % (11.0-16.0)
[2023-06-03 06:04] LABS: PLT ABN DIST 1; Platelet Count 36 X10*3/uL (160-400)
[2023-06-03 06:05] LABS: SLIDE REVIEW VERIFIED
[2023-06-03 06:08] LABS: Anion Gap 12 (12-20); Blood Urea Nitrogen 23 mg/dL (9-16); Calcium 8.4 mg/dL (8.4-10.2); Carbon Dioxide 18 mmol/L (22-29); Chloride 109 mmol/L (96-108); Creatinine Clr Calc Pharmacy 43.3; Estimated Glomerular Filt Rate 53; Glucose Random 197 mg/dL (60-115); Potassium 3.9 mmol/L (3.3-5.1); Sodium 135 mmol/L (135-145)
--- NOTE | 2023-06-03 06:33 | PC.NURSE ---
attempt to complete med rec with pt. 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
[2023-06-03 07:05] VITALS: BP 160/74; PULSE 94; RESP 16; TEMP 36.9; O2SAT 97
[2023-06-03 07:12] LABS: Alanine Aminotransferase 287 U/L (0-40); Albumin Level 1.9 g/dL (3.5-5.0); Alkaline Phosphatase 200 U/L (39-117); Aspartate Amino Transferase 837 U/L (5-37); Bilirubin Direct 2.8 mg/dL (0.0-0.5); Bilirubin Total 8.7 mg/dL (0.0-1.0); Total Protein 4.9 g/dL (6.5-8.0)
--- NOTE | 2023-06-03 08:37 | PC.NURSE ---
LR infusing at this time, pt resting comfortably on stretcher
--- NOTE | 2023-06-03 09:28 | PHA.MEDREC ---
Pharmacy Consult ? Medication Reconciliation Pharmacy has completed the medication reconciliation. [employer] used, pt able to name most medications, confirmed doses and timing
--- NOTE | 2023-06-03 10:17 | P.PNIM_ITS ---
Subjective Subjective Date of Service: 06/03/23 Interval History: c/o muscle aches + weakness has been on statin for years on Prograf for liver transplant Review of Systems Review of Systems: Yes all other systems are reviewed and are negative Physical Exam Vital Signs: Vital Signs: Last Vital Signs Temp 98.4 F 06/03/23 07:05 Pulse 94 06/03/23 07:05 Resp 16 06/03/23 07:05 BP 160/74 H 06/03/23 07:05 Pulse Ox 97 06/03/23 07:05 O2 Del Method Room Air 06/03/23 07:05 BMI result Body Mass Index 23.6 Gen: in no acute distress HEENT: sclera icteric, moist mucus membranes Neck: supple Lungs: clear to auscultation bilaterally Heart: regular rate and rhythm, no murmurs Abd: soft, non-tender, non-distended Ext: trace LE edema Skin: warm/well-perfused Neuro: alert and oriented x3, no focal findings Psych: appropriate affect Objective Data Active Medications Aspirin (Aspirin Enteric Coated 81 Mg Tablet.) 81 mg PO DAILY [facility] Cyanocobalamin (Cyanocobalamin (Vitamin B-12) 1,000 Mcg Tablet) 1,000 mcg PO DAILY [facility] Lactated Ringer's (Lr) 1,000 mls @ 150 mls/hr IVCONT .Q6H40M [facility] Last Admin: 06/03/23 08:35 Dose: 150 mls/hr Documented By: EDER Insulin Glargine (Insulin Glargine,Hum.Rec.Anlog 100 Unit/Ml 10 Ml Vial) 14 unit SUBCUT BEDTIME [facility] Lactulose (Lactulose 20 Gm/30 Ml Solution) 20 gm PO TID [facility] Magnesium Oxide (Magnesium Oxide 400 Mg Tablet) 800 mg PO DAILY [facility] Multivitamins/Vitamin C (Multivitamin Tablet) 1 tab PO DAILY [facility] Non-Formulary Medication (Entecavir [Baraclude]) 1 tab PO DAILY [facility] Omeprazole (Omeprazole 20 Mg Capsule.) 20 mg PO BID@0630,1630 [facility] Ondansetron HCl (Ondansetron Hcl 4 Mg/2 Ml Vial) 4 mg IVPUSH Q8H PRN PRN Reason: Nausea and Vomiting Oxycodone HCl (Oxycodone Hcl Immed Release 5 Mg Tablet) 5 mg PO Q4H PRN PRN Reason: Pain, Severe (Pain Scale 7-10) Pharmacy Consult (Consult Rx Perform Med Rec) 1 each MISCELLANE ONCE PRN PRN Reason: Consult order Rifaximin (Rifaximin 550 Mg Tablet) 550 mg PO BID [facility] Sodium Chloride (0.9 % Sodium Chloride Flush 3 Ml Syringe) 3 ml IVFLUSH QSHIFT [facility] Last Admin: 06/03/23 08:32 Dose: Not Given Documented By: EDER Non-Admin Reason: IV Running Tacrolimus (Tacrolimus 0.5 Mg Capsule) 0.5 mg PO DAILY [facility] Labs 06/03/23 05:32 06/03/23 05:32 Labs: Laboratory Results - last 24 hr 06/02/23 06/02/23 06/02/23 22:24 22:24 22:24 MCV 81.8 MCH 27.3 MCHC 33.3 RDW 21.3 H Plt Count 35 L MPV TNP Immature Gran % (Auto) 0.0 Neut % (Auto) 72.6 Lymph % (Auto) 12.1 L Hans[place] % (Auto) 13.1 H Eos % (Auto) 1.8 Baso % (Auto) 0.4 Lymph # (Auto) 0.3 L [place] # (Auto) 0.4 Eos # (Auto) 0.1 Baso # (Auto) 0.0 Abs Immat Gran (auto) 0.00 Absolute Neuts (auto) 2.1 Absolute Nucleated RBC 0.000 Nucleated RBC % (auto) 0.0 Smear Tech's Comments PT 23.0 H INR 2.0 H Anion Gap 12 Estim Creat Clear Calc 36.6 Estimated GFR 44 Random Glucose 316 H Calcium 8.4 D Total Bilirubin 9.4 H Direct Bilirubin AST 840 H ALT 285 H Alkaline Phosphatase 199 H Total Creatine Kinase 32900 H Total Protein 5.2 L Albumin 2.0 L Lipase 69 Urine Color Urine Appearance Urine pH Ur Specific [place] Urine Protein Urine Glucose (UA) Urine Ketones Urine Blood Urine Nitrite Ur Leukocyte Esterase Urine RBC Urine WBC Ur Squamous Epith Cells Urine Bacteria Hyaline Casts Granular Casts Ethyl Alcohol < 10 06/02/23 06/03/23 06/03/23 23:45 05:32 05:32 MCV 82.1 MCH 26.9 L MCHC 32.7 RDW 21.2 H Plt Count 36 L MPV Not Reportable Immature Gran % (Auto) 0.0 Neut % (Auto) 71.7 Lymph % (Auto) 13.3 L Hanson % (Auto) 11.0 Eos % (Auto) 3.3 Baso % (Auto) 0.7 Lymph # (Auto) 0.4 L [place] # (Auto) 0.3 Eos # (Auto) 0.1 Baso # (Auto) 0.0 Abs Immat Gran (auto) 0.00 Absolute Neuts (auto) 2.2 Absolute Nucleated RBC 0.000 Nucleated RBC % (auto) 0.0 Smear Tech's Comments VERIFIED PT INR Anion Gap 12 Estim Creat Clear Calc 43.3 Estimated GFR 53 Random Glucose 197 H Calcium 8.4 Total Bilirubin Direct Bilirubin AST ALT Alkaline Phosphatase Total Creatine Kinase Total Protein Albumin Lipase Urine Color Dark Yellow Urine Appearance Cloudy Urine pH 5.5 Ur Specific [place] 1.025 Urine Protein 300 (3+) H Urine Glucose (UA) 100 H Urine Ketones Negative Urine Blood Large (3+) H Urine Nitrite Negative Ur Leukocyte Esterase Small (1+) H Urine RBC 3-5 H Urine WBC 0-5 Ur Squamous Epith Cells 6-10 Urine Bacteria None Seen Hyaline Casts 0-2 Granular Casts Present Ethyl Alcohol 06/03/23 05:32 MCV MCH MCHC RDW Plt Count MPV Immature Gran % (Auto) Neut % (Auto) Lymph % (Auto) Hans[place] % (Auto) Eos % (Auto) Baso % (Auto) Lymph # (Auto) [place] # (Auto) Eos # (Auto) Baso # (Auto) Abs Immat Gran (auto) Absolute Neuts (auto) Absolute Nucleated RBC Nucleated RBC % (auto) Smear Tech's Comments PT INR Anion Gap Estim Creat Clear Calc Estimated GFR Random Glucose Calcium Total Bilirubin 8.7 H Direct Bilirubin 2.8 H AST 837 H ALT 287 H Alkaline Phosphatase 200 H Total Creatine Kinase 73762 H Total Protein 4.9 L Albumin 1.9 L Lipase Urine Color Urine Appearance Urine pH Ur Specific [place] Urine Protein Urine Glucose (UA) Urine Ketones Urine Blood Urine Nitrite Ur Leukocyte Esterase Urine RBC Urine WBC Ur Squamous Epith Cells Urine Bacteria Hyaline Casts Granular Casts Ethyl Alcohol Assessment and Plan (1) Rhabdomyolysis: Status: Acute Plan d2 73yo M with transplant of HBV+ liver in 2010, hx HCV cirrhosis, 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 presenting with 2 wk of dark-colored urine, muscle aches, and weakness found to have rhabdomyolysis rhabdomyolysis, non-traumatic - possibly due to statin boosted by tacrolimus - aggressive IV fluid hydration, Nephrology consult, monitor CPK transaminasemia - suspect from rhabdomyolysis; [facility] liver transplant team was informed yesterday by ED hyperbilirubinemia - baseline appears to be in 3-5 range, suspect acute elevation due to dehydration; improving LEBRON - resolved with IV hydration pancytopenia - due to cirrhosis; counts at baselines hx hepatic encephalopathy - continue lactulose + rifaximin DM2 - basal/bolus insulin liver transplant - continue tacrolimus chronic HBV - continue entecavir, pt to bring in from home 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 Quality Stroke Does the patient have a stroke diagnosis?: No VTE Prior VTE?: No VTE Risk Level:: Medical - moderate - high VTE Device Contraindication: Treatment Not Indicated VTE Drug Contraindication: N/A - Med Ordered
[2023-06-03 10:41] VITALS: BP 177/79; PULSE 94; RESP 16; TEMP 36.9; O2SAT 97
[2023-06-03 13:06] LABS: Glucose, Whole Blood 248 mg/dL (60-115)
[2023-06-03] MEDS: Insulin Lispro 100 UNIT/ML 3 ML VIAL SUBCUT ×3 (13:16→21:37)
--- NOTE | 2023-06-03 13:26 | MHC.CM.PN ---
pt lives with has no services is not expected to need services when dcd has a ride home dc plan home no services
[2023-06-03] MEDS: Lactulose 20 GM/30 ML SOLUTION PO ×2 (14:13→21:37)
[2023-06-03] MEDS: Sodium Bicarbonate 8.4% 150 MEQ in Dextrose 5 % 850 ML 125 MEQ IV (14:14)
[2023-06-03 15:02] VITALS: BP 158/68; PULSE 92; RESP 18; TEMP 36.9; O2SAT 95
[2023-06-03 16:07] LABS: Glucose, Whole Blood 234 mg/dL (60-115)
[2023-06-03 16:13] VITALS: BMI 24.9
[2023-06-03] MEDS: Tacrolimus 0.5 MG CAPSULE PO (16:56)
[2023-06-03] MEDS: Omeprazole 20 MG CAPSULE.DR PO (16:56)
[2023-06-03 19:17] VITALS: BP 168/68; PULSE 94; RESP 18; TEMP 37.1; O2SAT 97
[2023-06-03 20:16] LABS: Glucose, Whole Blood 279 mg/dL (60-115)
[2023-06-03] MEDS: rifAXIMin 550 MG TABLET PO (21:37)
[2023-06-03] MEDS: Insulin Glargine,Hum.rec.anlog 100 UNIT/ML 10 ML VIAL 14 UNIT SUBCUT (21:38)
[2023-06-03] MEDS: Lactated Ringers 1,000 ML 125 ML IVCONT (22:50)
[2023-06-03 23:51] LABS: Alanine Aminotransferase 316 U/L (0-40); Albumin Level 1.8 g/dL (3.5-5.0); Alkaline Phosphatase 188 U/L (39-117); Anion Gap 12 (12-20); Aspartate Amino Transferase 863 U/L (5-37); Bilirubin Total 9.7 mg/dL (0.0-1.0); Blood Urea Nitrogen 20 mg/dL (9-16); Calcium 8.3 mg/dL (8.4-10.2); Carbon Dioxide 21 mmol/L (22-29); Chloride 105 mmol/L (96-108); Creatinine Clr Calc Pharmacy 48.4; Estimated Glomerular Filt Rate > 60; Glucose Random 298 mg/dL (60-115); Potassium 3.7 mmol/L (3.3-5.1); Sodium 134 mmol/L (135-145); Total Protein 4.8 g/dL (6.5-8.0)
[2023-06-04 04:00] VITALS: BP 168/70; PULSE 92; RESP 16; TEMP 37.1; O2SAT 96
[2023-06-04 06:01] LABS: Mean Corpuscular HGB Conc 32.7 g/dl (31.0-36.0)
[2023-06-04 06:02] LABS: Hematocrit 30.6 % (42.0-52.0); Mean Corpuscular Hemoglobin 26.3 pg (27.0-33.0); Mean Corpuscular Volume 80.5 fL (80.0-98.0); PLT CLUMP 1
[2023-06-04] MEDS: Lactated Ringers 1,000 ML 125 ML IVCONT ×2 (06:02→14:03)
[2023-06-04] MEDS: Omeprazole 20 MG CAPSULE.DR PO ×2 (06:02→16:37)
[2023-06-04 06:13] LABS: Prothrombin Time 23.2 SEC (10.0-13.1)
[2023-06-04 06:17] LABS: PLT ABN DIST 1
[2023-06-04 06:20] LABS: Alanine Aminotransferase 331 U/L (0-40); Albumin Level 1.8 g/dL (3.5-5.0); Alkaline Phosphatase 182 U/L (39-117); Anion Gap 12 (12-20); Aspartate Amino Transferase 893 U/L (5-37); Bilirubin Total 10.5 mg/dL (0.0-1.0); Blood Urea Nitrogen 19 mg/dL (9-16); Calcium 8.3 mg/dL (8.4-10.2); Carbon Dioxide 20 mmol/L (22-29); Chloride 107 mmol/L (96-108); Estimated Glomerular Filt Rate > 60; Glucose Random 220 mg/dL (60-115); Potassium 3.9 mmol/L (3.3-5.1); Sodium 135 mmol/L (135-145); Total Protein 4.7 g/dL (6.5-8.0)
[2023-06-04 07:12] LABS: Glucose, Whole Blood 190 mg/dL (60-115)
[2023-06-04 07:41] VITALS: BP 182/90; PULSE 86; RESP 18; TEMP 37.3; O2SAT 95
--- NOTE | 2023-06-04 08:17 | HO.PM.IMPN ---
Subjective Subjective Date of Service: 06/04/23 Interval History: f/u on atraumatic rhabdomylosis cpk remains very high, complaint of diffuse bodyache Physical Exam Vital Signs: Vital Signs: Last Vital Signs Temp 99.1 F 06/04/23 07:41 Pulse 86 06/04/23 07:41 Resp 18 06/04/23 07:41 BP 182/90 H 06/04/23 07:41 Pulse Ox 95 06/04/23 07:41 O2 Del Method Room Air 06/04/23 07:41 BMI result Body Mass Index 24.9 Const: Other: Gen: in no acute distress HEENT: sclera icteric, Neck: supple Lungs: clear to auscultation bilaterally Heart: regular rate and rhythm, no murmurs Abd: soft, non-tender, non-distended Ext: trace LE edema Skin: warm/well-perfused Neuro: alert and oriented x3, no focal findings Psych: appropriate affect Objective Data Active Medications Aspirin (Aspirin Enteric Coated 81 Mg Tablet.Dr) 81 mg PO DAILY [facility] Cyanocobalamin (Cyanocobalamin (Vitamin B-12) 1,000 Mcg Tablet) 1,000 mcg PO DAILY [facility] Dextrose (Dextrose 50 % 25 Gm/50 Ml Syringe) 25 gm IVPUSH Q15M PRN; Protocol PRN Reason: per Hypoglycemia Standing Ord. Glucose (Glucose Gel 15 Gm Gel..Gram.) 15 gm PO Q15M PRN; Protocol PRN Reason: per Hypoglycemia Standing Ord. Lactated Ringer's (Lr) 1,000 mls @ 125 mls/hr IVCONT .Q8H [facility] Last Admin: 06/04/23 06:02 Dose: 125 mls/hr Documented By: DEANNA Insulin Glargine (Insulin Glargine,Hum.Rec.Anlog 100 Unit/Ml 10 Ml Vial) 14 unit SUBCUT BEDTIME [facility] Last Admin: 06/03/23 21:38 Dose: 14 unit Documented By: AUGUSTINA Insulin Human Lispro (Insulin Lispro 100 Unit/Ml 3 Ml Vial) 0 unit SUBCUT QIDACHS [facility]; Protocol Last Admin: 06/03/23 21:37 Dose: 6 unit Documented By: AUGUSTINA Lactulose (Lactulose 20 Gm/30 Ml Solution) 20 gm PO TID [facility] Last Admin: 06/03/23 21:37 Dose: 20 gm Documented By: AUGUSTINA Magnesium Oxide (Magnesium Oxide 400 Mg Tablet) 800 mg PO DAILY [facility] Multivitamins/Vitamin C (Multivitamin Tablet) 1 tab PO DAILY [facility] Non-Formulary Medication (Entecavir [Baraclude]) 1 tab PO DAILY [facility] Omeprazole (Omeprazole 20 Mg Capsule.Dr) 20 mg PO BID@0630,1630 [facility] Last Admin: 06/04/23 06:02 Dose: 20 mg Documented By: DEANNA Ondansetron HCl (Ondansetron Hcl 4 Mg/2 Ml Vial) 4 mg IVPUSH Q8H PRN PRN Reason: Nausea and Vomiting Oxycodone HCl (Oxycodone Hcl Immed Release 5 Mg Tablet) 5 mg PO Q4H PRN PRN Reason: Pain, Severe (Pain Scale 7-10) Pharmacy Consult (Consult Rx Perform Med Rec) 1 each MISCELLANE ONCE PRN PRN Reason: Consult order Rifaximin (Rifaximin 550 Mg Tablet) 550 mg PO BID [facility] Last Admin: 06/03/23 21:37 Dose: 550 mg Documented By: AUGUSTINA Sodium Chloride (0.9 % Sodium Chloride Flush 3 Ml Syringe) 3 ml IVFLUSH QSHIFT [facility] Last Admin: 06/03/23 23:49 Dose: Not Given Documented By: DEANNA Non-Admin Reason: IV Running Tacrolimus (Tacrolimus 0.5 Mg Capsule) 0.5 mg PO BIDWM [facility] Last Admin: 06/03/23 16:56 Dose: 0.5 mg Documented By: LINDA Labs 06/03/23 05:32 06/04/23 05:30 Labs: Laboratory Results - last 24 hr 06/03/23 06/03/23 06/03/23 13:03 15:54 20:05 MPV PT INR Anion Gap Estim Creat Clear Calc Estimated GFR POC Glucose 248 H 234 H 279 H Random Glucose Calcium Total Bilirubin AST ALT Alkaline Phosphatase Total Creatine Kinase Total Protein Albumin 06/03/23 06/04/23 06/04/23 23:29 05:30 05:30 MPV Not Reportable PT 23.2 H INR 2.0 H Anion Gap 12 Estim Creat Clear Calc 48.4 Estimated GFR > 60 POC Glucose Random Glucose 298 H Calcium 8.3 L Total Bilirubin 9.7 H AST 863 H ALT 316 H Alkaline Phosphatase 188 H Total Creatine Kinase Total Protein 4.8 L Albumin 1.8 L 06/04/23 06/04/23 05:30 07:07 MPV PT INR Anion Gap 12 Estim Creat Clear Calc 55.0 Estimated GFR > 60 POC Glucose 190 H Random Glucose 220 H Calcium 8.3 L Total Bilirubin 10.5 H AST 893 H ALT 331 H Alkaline Phosphatase 182 H Total Creatine Kinase 48383 H Total Protein 4.7 L Albumin 1.8 L Assessment and Plan (1) Rhabdomyolysis: Status: Acute Plan 73yo M with transplant of HBV+ liver in 2010, hx HCV cirrhosis, 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 presenting with 2 wk of dark-colored urine, muscle aches, and weakness found to have rhabdomyolysis rhabdomyolysis, non-traumatic - possibly due to statin and agravated by tacrolimus, CPK 25K-->24K - aggressive IV fluid hydration, Nephrology following, monitor CPK daily transaminasemia (elevate LFTs)--stable - suspect from rhabdomyolysis; [facility] liver transplant team was informed yesterday by ED hyperbilirubinemia - baseline appears to be in 3-5 range, suspect acute elevation due to dehydration; no improving, gi consult LEBRON - resolved with IV hydration pancytopenia - due to cirrhosis; counts at baselines hx hepatic encephalopathy--not encephalopathic - continue lactulose + rifaximin DM2 - basal/bolus insulin liver transplant - continue tacrolimus chronic HBV - continue entecavir, pt to bring in from home 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 Quality Stroke Does the patient have a stroke diagnosis?: No VTE Prior VTE?: No VTE Risk Level:: Medical - moderate - high VTE Device Contraindication: Treatment Not Indicated VTE Drug Contraindication: N/A - Med Ordered
[2023-06-04] MEDS: Insulin Lispro 100 UNIT/ML 3 ML VIAL SUBCUT ×4 (08:19→20:56)
[2023-06-04] MEDS: Magnesium Oxide 400 MG TABLET 800 MG PO (08:19)
[2023-06-04] MEDS: Tacrolimus 0.5 MG CAPSULE PO (08:19)
[2023-06-04] MEDS: oxyCODONE HCl Immed Release 5 MG TABLET PO (08:19)
[2023-06-04] MEDS: Aspirin Enteric Coated 81 MG TABLET.DR PO (08:19)
[2023-06-04] MEDS: Cyanocobalamin (Vitamin B-12) 1,000 MCG TABLET 1000 MCG PO (08:19)
[2023-06-04] MEDS: Multivitamin TABLET 1 TAB PO (08:19)
[2023-06-04] MEDS: Lactulose 20 GM/30 ML SOLUTION PO ×3 (08:19→20:57)
[2023-06-04] MEDS: rifAXIMin 550 MG TABLET PO ×2 (08:20→20:57)
[2023-06-04 08:26] LABS: White Blood Count 4.3 X10*3/uL (4.8-10.8)
[2023-06-04 08:53] VITALS: BP 159/70
--- NOTE | 2023-06-04 09:30 | PM.PNNEP ---
Subjective Subjective Date of Service: 06/04/23 Interval history: Seen and examiend, events noted cont to c/o gen muscle aches; urine still brown CPK slt decr but remian > 24k Physical Exam Vital Signs: Vital Signs: Last Vital Signs Temp 99.1 F 06/04/23 07:41 Pulse 86 06/04/23 07:41 Resp 18 06/04/23 07:41 BP 159/70 H 06/04/23 08:53 Pulse Ox 95 06/04/23 07:41 O2 Del Method Room Air 06/04/23 07:41 BMI result Body Mass Index 24.9 Const: Other: Gen: in no acute distress HEENT: sclera icteric, Neck: supple Lungs: clear to auscultation bilaterally Heart: regular rate and rhythm, no murmurs Abd: soft, non-tender, non-distended Ext: trace LE edema Skin: warm/well-perfused Neuro: alert and oriented x3, no focal findings Psych: appropriate affect General: cooperative and no acute distress Orientation/consciousness: patient oriented x3 Eyes: General: appearance normal, both eyes and all related structures Resp: Auscultation: clear to auscultation bilaterally Cardio: Rate: regular rate Rhythm: regular rhythm GI: Palpation (GI): Soft to palpation Auscultation: normal bowel sounds Skin: Other: Jaundice General skin exam: no rashes or lesions noted Neuro: General: patient oriented x3 Cognition (Neuro): normal cognition Extrem: Other: Muscular ache all over his body General: Yes normal to inspection and Yes no pedal edema Objective Data Labs 06/04/23 05:30 06/04/23 05:30 Labs: Laboratory Results - last 24 hr 06/03/23 06/03/23 06/03/23 13:03 15:54 20:05 WBC RBC Hgb Hct MCV MCH MCHC RDW Plt Count MPV Absolute Nucleated RBC Nucleated RBC % (auto) PT INR Sodium Potassium Chloride Carbon Dioxide Anion Gap BUN Creatinine Estim Creat Clear Calc Estimated GFR POC Glucose 248 H 234 H 279 H Random Glucose Calcium Total Bilirubin AST ALT Alkaline Phosphatase Total Creatine Kinase Total Protein Albumin 06/03/23 06/04/23 06/04/23 23:29 05:30 05:30 WBC 4.3 L RBC 3.80 L Hgb 10.0 L Hct 30.6 L MCV 80.5 MCH 26.3 L MCHC 32.7 RDW 21.0 H Plt Count TNP MPV TNP Absolute Nucleated RBC 0.000 Nucleated RBC % (auto) 0.0 PT 23.2 H INR 2.0 H Sodium 134 L Potassium 3.7 Chloride 105 Carbon Dioxide 21 L Anion Gap 12 BUN 20 H Creatinine 1.18 Estim Creat Clear Calc 48.4 Estimated GFR > 60 POC Glucose Random Glucose 298 H Calcium 8.3 L Total Bilirubin 9.7 H AST 863 H ALT 316 H Alkaline Phosphatase 188 H Total Creatine Kinase Total Protein 4.8 L Albumin 1.8 L 06/04/23 06/04/23 05:30 07:07 WBC RBC Hgb Hct MCV MCH MCHC RDW Plt Count MPV Absolute Nucleated RBC Nucleated RBC % (auto) PT INR Sodium 135 Potassium 3.9 Chloride 107 Carbon Dioxide 20 L Anion Gap 12 BUN 19 H Creatinine 1.04 Estim Creat Clear Calc 55.0 Estimated GFR > 60 POC Glucose 190 H Random Glucose 220 H Calcium 8.3 L Total Bilirubin 10.5 H AST 893 H ALT 331 H Alkaline Phosphatase 182 H Total Creatine Kinase 48486 H Total Protein 4.7 L Albumin 1.8 L Procedures Date of Service Date of Service: 06/04/23 Assessment & Plan Assessment and plan (1) Rhabdomyolysis: Status: Acute Plan 73yo M with transplant of HBV+ liver in 2010, hx HCV cirrhosis, 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 how long on statin) Rhabdo: d/t combo Tacro and STATIN; cont aggressive IVF andIV NaHCO3 to alkalinize the urine renal func preserved at this time REC: cont IV usint IV NaHCO3 as noted; tack UOP/renal func and CPK; check with [facility] liver xpalnt program if alt to tacro can be used given elayed rhabdo recovery perhaps d/t cont tacro Time Spent With Patient Time: Total time managing care of this patient today ____ minutes. Progress Note: Quality Stroke Does the patient have a stroke diagnosis?: No
--- NOTE | 2023-06-04 09:37 | CONS_ITS ---
DATE OF SERVICE: 06/03/2023 REASON FOR CONSULTATION: I was asked to see patient to assist in evaluation and management of patient's rhabdomyolysis as reflected by CPK that was 27,508 on admission, it is slightly decreased today at 25,786. HISTORY OF PRESENT ILLNESS: In summary, the patient is a complicated 73-year-old gentleman with a history of a cardiolipin antibody syndrome, hepatitis C, liver cirrhosis status post liver transplant in 2010 at [facility], diabetes, hypertension, who was in the hospital with diffuse muscle aches and weakness. The patient states this happened onset about a week to 10 days ago. He also noticed a change in his urine to being from yellow to dark brownish color. He denies any fever, sweats, or chills. He says his muscle aches are diffuse. In reviewing his medications, he is on Lipitor 40 mg a day, which he says he has been on long-standing along with tacrolimus 1 mg a day, which he has been on long-standing. Presently, he is feeling a bit better but still has diffuse muscle aches. He denies a fever, sweats, or chills. No gross hematuria or dysuria. PAST MEDICAL HISTORY: As noted above. Includes liver transplant, hepatitis C, maintained on tacrolimus and prednisone, diabetes, history of stroke, liver dysfunction as reflected by abnormal liver function tests. MEDICATIONS: Medications on admission are noted in the admitting notes. His medications, he is on a statin and tacrolimus. Current medications are noted in the MAR. FAMILY HISTORY: Notable for diabetes and hypertension. He is a nonsmoker, nondrinker. No illicit drug use. REVIEW OF SYSTEMS: As noted above. PHYSICAL EXAMINATION: VITAL SIGNS: Blood pressure of 150/70, heart rate in the 70s. HEAD: Atraumatic and normocephalic. NECK: Supple. Mucous membranes are moist. LUNGS: Clear. CARDIAC: Regular rate and rhythm without rub. ABDOMEN: Soft, nontender. Good bowel sounds. No CVA tenderness. EXTREMITIES: Shows no edema. Muscle bellies are slightly tender to palpation in the upper and lower extremities. LABORATORY DATA: Labs from today show sodium 135, potassium 3.9, chloride 109, bicarb 18, BUN 23, creatinine 1.32. His creatinine was 1.56 yesterday. His baseline creatinine is in the 1.2 to 1.3 range. Total bilirubin was 8.7. In fact, his bilirubin normally is in the 3 to 4 range. CPK this morning is 25,786, was 27,000 on admission. Albumin 1.9, lipase 69. Urine shows 3+ protein, large amount of blood by dipstick with 3 to 5 RBCs per high-power field on the urinalysis. IMPRESSION: A 73-YEAR-OLD LIVER TRANSPLANT PATIENT ADMITTED WITH RHABDOMYOLYSIS ON A COMBINATION OF THE TACROLIMUS AND A STATIN. 1. Rhabdomyolysis. This is most consistent with medication-induced from the combination of being on a statin and tacrolimus, which has a significant risk of causing rhabdomyolysis. Other possibilities seem less likely, and he is currently on IV fluids, making good urine output, and CPKs have remained stable and hopefully start coming down. Serum creatinine remained stable. 2. Non-anion gap depressed serum bicarb. We will see about giving him IV sodium bicarb to alkalinize his urine as a way to prevent rhabdo-associated acute kidney injury. 3. Liver dysfunction. His LFTs are more abnormal than usual. May need gastrointestinal evaluation. 4. Liver transplant patient. Maintained on tacrolimus and prednisone. We will track the tacrolimus levels. RECOMMENDATIONS: At time include change IV fluids, IV sodium bicarb to alkalinize his urine. Monitor urine output and renal function. Avoid nephrotoxins. Avoid use of the statin. Check tacrolimus level. We will follow the patient with the team. MD GEOFF Harris/GAIL / [phone]
[2023-06-04 11:29] LABS: Glucose, Whole Blood 217 mg/dL (60-115)
--- NOTE | 2023-06-04 15:07 | MHC.CM.PN ---
per rounds pt not ready for dc at this time
[2023-06-04 15:47] VITALS: BP 160/70; PULSE 99; RESP 16; TEMP 37.1; O2SAT 95
[2023-06-04 16:16] LABS: Glucose, Whole Blood 301 mg/dL (60-115)
[2023-06-04 19:53] VITALS: BP 170/68; PULSE 102; RESP 18; TEMP 36.8; O2SAT 95
[2023-06-04] MEDS: Sodium Bicarbonate 8.4% 150 MEQ in Dextrose 5 % 850 ML 125 MEQ IV (20:12)
[2023-06-04] MEDS: 0.9 % Sodium Chloride Flush 3 ML SYRINGE IVFLUSH (20:12)
[2023-06-04 20:34] LABS: Glucose, Whole Blood 316 mg/dL (60-115)
[2023-06-04] MEDS: Insulin Glargine,Hum.rec.anlog 100 UNIT/ML 10 ML VIAL 14 UNIT SUBCUT (20:56)
[2023-06-05] MEDS: oxyCODONE HCl Immed Release 5 MG TABLET PO ×2 (01:47→21:30)
[2023-06-05] MEDS: Sodium Bicarbonate 8.4% 150 MEQ in Dextrose 5 % 850 ML 125 MEQ IV ×3 (03:41→20:23)
[2023-06-05 04:00] VITALS: BP 174/70; PULSE 102; RESP 16; TEMP 36.3; O2SAT 93
--- NOTE | 2023-06-05 07:22 | PC.NURSE ---
Pt's BP and HR was elevated during the third shift lieutenant. The Pt's last BP was 174/70 manually and HR 102, pt denies any chest pain or SOB at 04:00. This RN noticed the pt has a hx of HTN and takes no home BP medications. This RN notified the hospitalist MD Arriaga of the situation. No new orders were given. Will continue to monitor the pt's BP and HR.
[2023-06-05 07:42] LABS: Glucose, Whole Blood 272 mg/dL (60-115)
[2023-06-05 07:44] VITALS: BP 168/74; PULSE 70; RESP 16; TEMP 37.1; O2SAT 97
[2023-06-05] MEDS: rifAXIMin 550 MG TABLET PO ×2 (09:02→21:30)
[2023-06-05] MEDS: Lactulose 20 GM/30 ML SOLUTION PO ×2 (09:02→14:59)
[2023-06-05] MEDS: Omeprazole 20 MG CAPSULE.DR PO ×2 (09:02→16:48)
[2023-06-05] MEDS: Multivitamin TABLET 1 TAB PO (09:03)
[2023-06-05] MEDS: Cyanocobalamin (Vitamin B-12) 1,000 MCG TABLET 1000 MCG PO (09:03)
[2023-06-05] MEDS: Tacrolimus 0.5 MG CAPSULE PO (09:03)
[2023-06-05] MEDS: Magnesium Oxide 400 MG TABLET 800 MG PO (09:03)
[2023-06-05] MEDS: Aspirin Enteric Coated 81 MG TABLET.DR PO (09:03)
[2023-06-05] MEDS: Insulin Lispro 100 UNIT/ML 3 ML VIAL SUBCUT ×4 (09:15→21:33)
[2023-06-05 11:41] LABS: Glucose, Whole Blood 387 mg/dL (60-115)
[2023-06-05 12:22] LABS: Magnesium 1.6 mg/dL (1.6-2.6)
--- NOTE | 2023-06-05 12:36 | MHC.CM.PN ---
PT TO [facility] PENDING TRANSFER TO [facility]
--- NOTE | 2023-06-05 14:22 | P.DS_ITS ---
DS: Providers Provider Date of Service: 06/05/23 Date of admission: 06/02/23 23:46 Primary care physician: Amauri Eric MD Consults: 06/02/23 23:45 Consult to Nephrology Routine Consulting Provider: [facility] Reason for consultation: Tim DIANA Has provider been notified: No DS: Diagnosis Discharge Diagnosis (1) Rhabdomyolysis: Status: Acute DS: Summary Hospital Course Hospital Course: History of presenting illness Date of Service: 06/02/23 Chief Complaint: Weakness 73-year-old male with past medical history of cardiolipin antibody syndrome, hepatitis-C, liver cirrhosis, status post liver transplant [address] [facility], diabetes, hypertension, presents the hospital with complaints of muscle aches and weakness. Patient is Azeri-speaking but speaks some Malaysian, is here with his , and state that his symptoms started about 2 weeks ago, he also noticed a change in his color to yellow, he has had significant muscle aches, and weakness in general.? He otherwise denies any chest pain, no shortness of breath, no abdominal pain nausea or vomiting, no recent diarrhea, no urinary symptoms and no lower extremity edema.? No fever or chills.? Compliant with his medications.? No recent fall or trauma.? On arrival to the ED patient hemodynamically stable with no significant abnormal vitals Labs are significant for WBC count of 3.1, hemoglobin of 10.4, which is around his baseline, INR of 2.0, PT of 23, sodium 132, creatinine of 1.56 with a baseline of around 1.3, bilirubin of 3.6, AST of 954, ALT of 319, alk-phos of 238, and CPK of 27,508. Case was discussed with his Hapatology team at [facility] by the ED physician, at this time there is no indication for transfer as his LFTs have revealed improvement on repeat labs.? Patient will be admitted for further monitoring and placed on IV fluids. 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 and aggravated by tacrolimus, CPK trending up from 25,000 to 35,000 despite IV fluids and iv soda bicarb , being followed by Nephrology they recommend to discontinue tacrolimus, low level of tacrolimus, case discussed with hepatology team and they accepted patient to their care therefore he will be transferred to [facility] will continue IV soda bicarb 150 mEq at 125 mL/hour, Follow CPK, BMP and repeat tacrolimus level. hyperbilirubinemia/transaminitis suspect acute elevation due to dehydration, recurrent cirrhosis, elevated INR, low albumin, no evidence of encephalopathy will be transferred to [facility] hepatology service, case discussed with post liver audio visual collections coordinator Almita Thomas and Shari Jack from transplant team. LEBRON resolved with IV hydration pancytopenia due to cirrhosis; DC aspirin, counts at baseline. hx hepatic encephalopathy--not encephalopathic, continue lactulose + rifaximin DM2 elevated blood sugars continue basal and bolus insulin, diabetic diet and follow blood sugars liver transplant will DC tacrolimus as per Nephrology recommendation, tacrolimus level 3.7 chronic HBV - continue entecavir was hx antiphospholip antibody (APLA )syndrome,- off anticoagulation? due to varices,? 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 Discharge coordination time: Greater than 30 minutes Quality: Safe Use of Opioids Does Pt have an Active Cancer Diagnosis on the Problem List?: No Quality: Stroke Does the patient have a stroke diagnosis?: No Physical Exam Vital Signs: Vital Signs: Last Vital Signs Temp 98.7 F 06/05/23 07:44 Pulse 70 06/05/23 07:44 Resp 16 06/05/23 07:44 BP 168/74 H 06/05/23 07:44 Pulse Ox 97 06/05/23 07:44 O2 Del Method Room Air 06/05/23 07:44 BMI result Body Mass Index 24.9 Const: Other: Gen: in no acute distress HEENT: sclera icteric, moist mucus membranes Neck: supple Lungs: clear to auscultation bilaterally Heart: regular rate and rhythm, no murmurs Abd: soft, non-tender, non-distended Ext: trace LE edema Skin: warm/well-perfused skin ecchymosis Neuro: alert and oriented x3, no focal findings Psych: appropriate affect DS: Data Data Completed and Pending Labs on day of discharge: Laboratory Results - last 24 hr 06/04/23 06/04/23 06/05/23 16:10 20:25 07:08 POC Glucose 301 H 316 H 272 H Magnesium Total Creatine Kinase 06/05/23 06/05/23 09:14 11:37 POC Glucose 387 H* Magnesium 1.6 Total Creatine Kinase 91738 H Discharge Plan Discharge Anticipated Discharge Date/Time: 06/05/23 11:42 Patient Disposition: er Acute Care Hospital Discharge Diagnosis: Rhabdomyolysis LEBRON Elevated LFTs Pancytopenia Referrals: Amauri Eric MD [Primary Care Provider] - 1 Week Discharge Medications: Continued entecavir [Baraclude] 0.5 mg tablet 1 tab PO DAILY magnesium oxide 400 mg magnesium Tablet 800 mg PO DAILY pantoprazole 40 mg tablet,delayed release (DR/EC) 40 mg PO BID insulin aspart U-100 [Novolog FlexPen U-100 Insulin] 100 unit/mL (3 mL) insulin pen See Protocol subcut TID Protocol: Insulin Correction Scale Less than or equal to 110 ---- Give (units): 0 111 to 150 Give (units): 0 151 to 200 Give (units): 2 201 to 250 Give (units): 4 251 to 300 Give (units): 6 301 to 350 Give (units): 8 Greater than 350 Give (units): 10 Call MD if Blood Glucose > : 350 lactulose 10 gram/15 mL solution 30 ml PO TID Xifaxan 550 mg tablet 550 mg PO BID multivitamin Tablet 1 tab PO DAILY cyanocobalamin (vitamin B-12) 1,000 mcg Tablet 1,000 mcg PO DAILY Changed insulin glargine [Lantus Solostar U-100 Insulin] 100 unit/mL (3 mL) insulin pen 20 unit subcut BEDTIME Qty: 15 0RF Discontinued aspirin 81 mg tablet,delayed release (DR/EC) 1 tab PO DAILY tacrolimus [Prograf] 0.5 mg Capsule 0.5 mg PO DAILY Discharge Orders: Discharge Order (Routine); Ordered 06/05/23 Ordered By: Donato Mcclure Diet: Diabetic diet Activity on Discharge: As tolerated Stand Alone Forms: Patient Portal Discharge page Care Plan Goals: Worsening CPK/recurrent cirrhosis being transferred to [facility] liver transplant team, continue IV fluids with soda bicarb 125 mL/hour follow BMP, CPK and repeat tacrolimus level Stop aspirin due to low platelets and elevated INR Health Concerns: Elevated CPK/LFTs were Plan of Treatment: Follow-up with hepatology and primary care physician Assessment: As above
--- NOTE | 2023-06-05 14:40 | PM.PNNEP ---
Subjective Subjective Date of Service: 06/05/23 Interval history: Seen and examiend, events noted cont to c/o gen muscle aches; urine still brown CPK worsethisam is very concerning No lytes, bun/Cr done --asked lab to add on Physical Exam Vital Signs: Vital Signs: Last Vital Signs Temp 98.7 F 06/05/23 07:44 Pulse 70 06/05/23 07:44 Resp 16 06/05/23 07:44 BP 168/74 H 06/05/23 07:44 Pulse Ox 97 06/05/23 07:44 O2 Del Method Room Air 06/05/23 07:44 BMI result Body Mass Index 24.9 Const: Other: Gen: in no acute distress HEENT: sclera icteric, Neck: supple Lungs: clear to auscultation bilaterally Heart: regular rate and rhythm, no murmurs Abd: soft, non-tender, non-distended Ext: trace LE edema Skin: warm/well-perfused Neuro: alert and oriented x3, no focal findings Psych: appropriate affect General: cooperative and no acute distress Orientation/consciousness: patient oriented x3 Eyes: General: appearance normal, both eyes and all related structures Resp: Auscultation: clear to auscultation bilaterally Cardio: Rate: regular rate Rhythm: regular rhythm GI: Palpation (GI): Soft to palpation Auscultation: normal bowel sounds Skin: Other: Jaundice General skin exam: no rashes or lesions noted Neuro: General: patient oriented x3 Cognition (Neuro): normal cognition Extrem: Other: Muscular ache all over his body General: Yes normal to inspection and Yes no pedal edema Objective Data Labs 06/04/23 05:30 06/04/23 05:30 Labs: Laboratory Results - last 24 hr 06/04/23 06/04/23 06/05/23 16:10 20:25 07:08 POC Glucose 301 H 316 H 272 H Magnesium Total Creatine Kinase 06/05/23 06/05/23 09:14 11:37 POC Glucose 387 H* Magnesium 1.6 Total Creatine Kinase 52103 H Microbiology Microbiology Results: Microbiology 06/03/23 Unknown Urine clean catch - Urine myles top Urine Culture - Final Procedures Date of Service Date of Service: 06/05/23 Assessment & Plan Assessment and plan (1) Rhabdomyolysis: Status: Acute Plan 73yo M with transplant of HBV+ liver in 2010, hx HCV cirrhosis, 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 how long on statin) Rhabdo: d/t combo Tacro and STATIN; cont aggressive IVF andIV NaHCO3 to alkalinize the urine renal func had been preserved BUT TODAYS RENAL LABS NOT DONE Oncr CPK is very concerning and suspect its d/t TACRO-- REC: ADD RENALLABS TO AM LABS ALREADY DRAWN; cont IV usint IV NaHCO3 as noted; tack UOP/renal func and CPK; need to check with [facility] liver xpalnt about HOLDING tacro; agre w xfer to ASS; proceed with RHEUM eval w/u to r/o inflam myositis--polymyositis etc Time Spent With Patient Time: Total time managing care of this patient today ____ minutes. Progress Note: Quality Stroke Does the patient have a stroke diagnosis?: No
--- NOTE | 2023-06-05 14:49 | HO.PM.IMPN ---
Subjective Subjective Date of Service: 06/05/23 Interval History: Complaining of back pain, denies lightheadedness dizziness no fevers no chills, no acute issues overnight tolerating diet with no nausea, no vomiting, no diarrhea. Review of Systems All other system reviewed and negative. Physical Exam Vital Signs: Vital Signs: Last Vital Signs Temp 98.7 F 06/05/23 07:44 Pulse 70 06/05/23 07:44 Resp 16 06/05/23 07:44 BP 168/74 H 06/05/23 07:44 Pulse Ox 97 06/05/23 07:44 O2 Del Method Room Air 06/05/23 07:44 BMI result Body Mass Index 24.9 Const: Other: Gen: in no acute distress HEENT: sclera icteric, moist mucus membranes Neck: supple Lungs: clear to auscultation bilaterally Heart: regular rate and rhythm, no murmurs Abd: soft, non-tender, non-distended Ext: trace LE edema Skin: warm/well-perfused skin? ecchymosis Neuro: alert and oriented x3, no focal findings Psych: appropriate affect Objective Data Active Medications Cyanocobalamin (Cyanocobalamin (Vitamin B-12) 1,000 Mcg Tablet) 1,000 mcg PO DAILY [facility] Last Admin: 06/05/23 09:03 Dose: 1,000 mcg Documented By: BRENDA Dextrose (Dextrose 50 % 25 Gm/50 Ml Syringe) 25 gm IVPUSH Q15M PRN; Protocol PRN Reason: per Hypoglycemia Standing Ord. Glucose (Glucose Gel 15 Gm Gel..Gram.) 15 gm PO Q15M PRN; Protocol PRN Reason: per Hypoglycemia Standing Ord. Sodium Bicarbonate 150 meq/ (Dextrose) 1,000 mls @ 125 mls/hr IV .Q8H [facility] Last Admin: 06/05/23 10:57 Dose: 125 mls/hr Documented By: BRENDA Insulin Glargine (Insulin Glargine,Hum.Rec.Anlog 100 Unit/Ml 10 Ml Vial) 20 unit SUBCUT BEDTIME [facility] Insulin Human Lispro (Insulin Lispro 100 Unit/Ml 3 Ml Vial) 0 unit SUBCUT QIDACHS [facility]; Protocol Last Admin: 06/05/23 12:31 Dose: 14 unit Documented By: BRENDA Lactulose (Lactulose 20 Gm/30 Ml Solution) 20 gm PO TID [facility] Last Admin: 06/05/23 09:02 Dose: 20 gm Documented By: BRENDA Magnesium Oxide (Magnesium Oxide 400 Mg Tablet) 800 mg PO DAILY [facility] Last Admin: 06/05/23 09:03 Dose: 800 mg Documented By: BRENDA Multivitamins/Vitamin C (Multivitamin Tablet) 1 tab PO DAILY [facility] Last Admin: 06/05/23 09:03 Dose: 1 tab Documented By: BRENDA Non-Formulary Medication (Entecavir [Baraclude]) 1 tab PO DAILY [facility] Omeprazole (Omeprazole 20 Mg Capsule.Dr) 20 mg PO BID@0630,1630 [facility] Last Admin: 06/05/23 09:02 Dose: 20 mg Documented By: BRENDA Ondansetron HCl (Ondansetron Hcl 4 Mg/2 Ml Vial) 4 mg IVPUSH Q8H PRN PRN Reason: Nausea and Vomiting Oxycodone HCl (Oxycodone Hcl Immed Release 5 Mg Tablet) 5 mg PO Q4H PRN PRN Reason: Pain, Severe (Pain Scale 7-10) Last Admin: 06/05/23 01:47 Dose: 5 mg Documented By: HAYLEY Pharmacy Consult (Consult Rx Perform Med Rec) 1 each MISCELLANE ONCE PRN PRN Reason: Consult order Rifaximin (Rifaximin 550 Mg Tablet) 550 mg PO BID [facility] Last Admin: 06/05/23 09:02 Dose: 550 mg Documented By: BRENDA Sodium Chloride (0.9 % Sodium Chloride Flush 3 Ml Syringe) 3 ml IVFLUSH QSHIFT [facility] Last Admin: 06/05/23 09:06 Dose: Not Given Documented By: BRENDA Non-Admin Reason: IV Running Labs 06/04/23 05:30 06/04/23 05:30 Labs: Laboratory Results - last 24 hr 06/04/23 06/04/23 06/05/23 16:10 20:25 07:08 POC Glucose 301 H 316 H 272 H Magnesium Total Creatine Kinase 06/05/23 06/05/23 09:14 11:37 POC Glucose 387 H* Magnesium 1.6 Total Creatine Kinase 98271 H Microbiology Microbiology Results: Microbiology 06/03/23 Unknown Urine Culture - Final Urine clean catch - Urine myles top Assessment and Plan (1) Rhabdomyolysis: Status: Acute (2) Transaminitis: Status: Acute (3) Antiphospholipid antibody syndrome: Status: Acute (4) Acute renal failure due to rhabdomyolysis: Status: Acute Plan 73yo M with transplant of HBV+ liver in 2010, hx HCV cirrhosis, 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 and aggravated by tacrolimus, CPK trending up from 25,000 to 35,000 despite IV fluids and iv soda bicarb , being followed by Nephrology they recommend to discontinue tacrolimus, low level of tacrolimus, case discussed with hepatology team and they accepted patient to their care therefore he will be transferred to [facility] will continue IV soda bicarb 150 mEq at 125 mL/hour, Follow CPK, BMP and repeat tacrolimus level. hyperbilirubinemia/transaminitis suspect acute elevation due to dehydration, recurrent cirrhosis, elevated INR, low albumin, no evidence of encephalopathy will be transferred to [facility] hepatology service, case discussed with post liver revenue coordinator Almita Thomas and Shari Jack from transplant team. LEBRON resolved with IV hydration pancytopenia due to cirrhosis; DC aspirin, counts at baseline. hx hepatic encephalopathy--not encephalopathic, continue lactulose + rifaximin DM2 elevated blood sugars continue basal and bolus insulin, diabetic diet and follow blood sugars liver transplant will DC tacrolimus as per Nephrology recommendation, tacrolimus level 3.7 chronic HBV - continue entecavir was hx antiphospholip antibody (APLA )syndrome,- off anticoagulation? due to varices,? + anticardiolipin antibody turning negative Patient need continued inpatient hospitalization for IV fluids waiting for safe discharge to [facility]. Time Spent With Patient Time: Total time managing care of this patient today ____ minutes. Quality Stroke Does the patient have a stroke diagnosis?: No VTE Prior VTE?: No VTE Risk Level:: Medical - moderate - high VTE Device Contraindication: Treatment Not Indicated VTE Drug Contraindication: N/A - Med Ordered
[2023-06-05 15:27] LABS: Anion Gap 13 (12-20); Blood Urea Nitrogen 16 mg/dL (9-16); Calcium 8.4 mg/dL (8.4-10.2); Carbon Dioxide 25 mmol/L (22-29); Chloride 99 mmol/L (96-108); Creatinine Clr Calc Pharmacy 71.5; Estimated Glomerular Filt Rate > 60; Potassium 4.4 mmol/L (3.3-5.1); Sodium 133 mmol/L (135-145)
[2023-06-05 15:45] VITALS: BP 139/60; PULSE 100; RESP 20; TEMP 37.1; O2SAT 95
[2023-06-05 16:02] LABS: Glucose, Whole Blood 298 mg/dL (60-115)
[2023-06-05 19:43] LABS: Glucose Random 374 mg/dL (60-115)
[2023-06-05 20:00] VITALS: BP 144/65; PULSE 104; RESP 20; TEMP 37.1; O2SAT 93
[2023-06-05 21:05] LABS: Glucose, Whole Blood 252 mg/dL (60-115)
[2023-06-05] MEDS: Insulin Glargine,Hum.rec.anlog 100 UNIT/ML 10 ML VIAL 20 UNIT SUBCUT (21:33)
[2023-06-05] MEDS: 0.9 % Sodium Chloride Flush 3 ML SYRINGE IVFLUSH (21:34)
[2023-06-05 22:28] LABS: Anion Gap 9 (12-20); Carbon Dioxide 31 mmol/L (22-29); Chloride 97 mmol/L (96-108); Potassium 4.4 mmol/L (3.3-5.1); Sodium 133 mmol/L (135-145)
[2023-06-06 03:38] VITALS: BP 150/69; PULSE 103; RESP 16; TEMP 36.1; O2SAT 93
[2023-06-06] MEDS: Sodium Bicarbonate 8.4% 150 MEQ in Dextrose 5 % 850 ML 125 MEQ IV (04:50)
[2023-06-06] MEDS: Omeprazole 20 MG CAPSULE.DR PO ×2 (06:40→16:37)
[2023-06-06 07:19] LABS: Anion Gap 10 (12-20); Blood Urea Nitrogen 17 mg/dL (9-16); Calcium 8.3 mg/dL (8.4-10.2); Carbon Dioxide 32 mmol/L (22-29); Chloride 95 mmol/L (96-108); Glucose Random 256 mg/dL (60-115); Potassium 4.3 mmol/L (3.3-5.1); Sodium 133 mmol/L (135-145)
[2023-06-06 07:20] LABS: Creatinine Clr Calc Pharmacy 68.9; Estimated Glomerular Filt Rate > 60
[2023-06-06 07:56] VITALS: BP 149/70; RESP 16; O2SAT 95
[2023-06-06 08:23] LABS: Glucose, Whole Blood 255 mg/dL (60-115)
[2023-06-06 08:27] LABS: Alanine Aminotransferase 458 U/L (0-40); Albumin Level 1.6 g/dL (3.5-5.0); Alkaline Phosphatase 155 U/L (39-117); Aspartate Amino Transferase 1247 U/L (5-37); Bilirubin Direct 2.5 mg/dL (0.0-0.5); Bilirubin Total 10.5 mg/dL (0.0-1.0); Total Protein 4.2 g/dL (6.5-8.0)
[2023-06-06] MEDS: Lactulose 20 GM/30 ML SOLUTION PO ×3 (08:32→20:21)
[2023-06-06] MEDS: Insulin Lispro 100 UNIT/ML 3 ML VIAL SUBCUT ×4 (08:32→20:21)
[2023-06-06] MEDS: Multivitamin TABLET 1 TAB PO (08:33)
[2023-06-06] MEDS: Tacrolimus 0.5 MG CAPSULE PO (08:33)
[2023-06-06] MEDS: Magnesium Oxide 400 MG TABLET 800 MG PO (08:33)
[2023-06-06] MEDS: rifAXIMin 550 MG TABLET PO ×2 (08:33→20:21)
[2023-06-06] MEDS: oxyCODONE HCl Immed Release 5 MG TABLET PO (08:33)
[2023-06-06] MEDS: Cyanocobalamin (Vitamin B-12) 1,000 MCG TABLET 1000 MCG PO (08:33)
[2023-06-06] MEDS: 0.9 % Sodium Chloride Flush 3 ML SYRINGE IVFLUSH ×3 (08:34→20:22)
--- NOTE | 2023-06-06 10:01 | PM.PNNEP ---
Subjective Subjective Date of Service: 06/06/23 Interval history: seen and examined c/o dark urine d/w medical attending Physical Exam Vital Signs: Vital Signs: Last Vital Signs Temp 96.9 F 06/06/23 03:38 Pulse 103 H 06/06/23 03:38 Resp 16 06/06/23 07:56 BP 149/70 H 06/06/23 07:56 Pulse Ox 95 06/06/23 07:56 O2 Del Method Room Air 06/06/23 07:56 BMI result Body Mass Index 24.9 Const: General: alert and awake HEENT: Head: Yes normocephalic and Yes atraumatic Neck: Neck: Yes supple Resp: Auscultation: diminished lung sounds Cardio: Heart sounds: S1 normal heart sound present and S2 normal heart sound present GI: Palpation (GI): Soft to palpation and nontender Extrem: Right upper extremity: edema Objective Data Labs 06/04/23 05:30 06/06/23 05:38 Labs: Laboratory Results - last 24 hr 06/05/23 06/05/23 06/05/23 09:14 11:37 15:50 Sodium 133 L Potassium 4.4 Chloride 99 Carbon Dioxide 25 Anion Gap 13 BUN 16 Creatinine 0.80 Estim Creat Clear Calc 71.5 Estimated GFR > 60 POC Glucose 387 H* 298 H Random Glucose 374 H* Calcium 8.4 Magnesium 1.6 Total Bilirubin Direct Bilirubin AST ALT Alkaline Phosphatase Total Creatine Kinase 54663 H Total Protein Albumin 06/05/23 06/05/23 06/06/23 20:57 21:41 05:38 Sodium 133 L 133 L Potassium 4.4 4.3 Chloride 97 95 L Carbon Dioxide 31 H 32 H Anion Gap 9 L 10 L BUN 17 H Creatinine 0.83 Estim Creat Clear Calc 68.9 Estimated GFR > 60 POC Glucose 252 H Random Glucose 256 H Calcium 8.3 L Magnesium Total Bilirubin 10.5 H Direct Bilirubin 2.5 H AST 1247 H ALT 458 H Alkaline Phosphatase 155 H Total Creatine Kinase > 47500 H 59733 H Total Protein 4.2 L Albumin 1.6 L 06/06/23 07:58 Sodium Potassium Chloride Carbon Dioxide Anion Gap BUN Creatinine Estim Creat Clear Calc Estimated GFR POC Glucose 255 H Random Glucose Calcium Magnesium Total Bilirubin Direct Bilirubin AST ALT Alkaline Phosphatase Total Creatine Kinase Total Protein Albumin Microbiology Microbiology Results: Microbiology 06/03/23 Unknown Urine clean catch - Urine myles top Urine Culture - Final Procedures Date of Service Date of Service: 06/06/23 Assessment & Plan Assessment and plan (1) Rhabdomyolysis: Status: Acute (2) Metabolic alkalosis: Status: Acute (3) Liver transplant recipient: Status: Acute Plan kidney function normal h/o liver transplant rhabdomyolysis due to ? tacrolimus and statins w/u for myositis, polymyositis etc REC dc bicarbonate drip c/w IVF NS hold tacrolimus today transfer to [facility] follow CPK follow kidney function and electrolytes Time Spent With Patient Time: Total time managing care of this patient today ____ minutes. Progress Note: Quality Stroke Does the patient have a stroke diagnosis?: No
[2023-06-06 11:21] LABS: Glucose, Whole Blood 311 mg/dL (60-115)
[2023-06-06] MEDS: 0.9 % Sodium Chloride 1,000 ML 100 ML IVCONT ×2 (12:00→22:00)
[2023-06-06 15:58] VITALS: BP 146/69; PULSE 99; RESP 20; TEMP 36.8; O2SAT 93
[2023-06-06 16:29] LABS: Glucose, Whole Blood 291 mg/dL (60-115)
--- NOTE | 2023-06-06 16:39 | HO.PM.IMPN ---
Subjective Subjective Date of Service: 06/06/23 Interval History: Complaining of generalized swelling, and dark-colored urine, pain right-sided chest, tolerating diet no nausea, no vomiting, no abdominal pain, denies diarrhea, no other acute issues overnight, no fevers, no chills. Review of Systems All other system reviewed and negative. Physical Exam Vital Signs: Vital Signs: Last Vital Signs Temp 98.2 F 06/06/23 15:58 Pulse 99 06/06/23 15:58 Resp 20 06/06/23 15:58 BP 146/69 H 06/06/23 15:58 Pulse Ox 93 06/06/23 15:58 O2 Del Method Room Air 06/06/23 15:58 BMI result Body Mass Index 24.9 Const: Other: Gen: in no acute distress HEENT: sclera icteric, moist mucus membranes Neck: supple Lungs: clear to auscultation bilaterally Heart: regular rate and rhythm, no murmurs Abd: soft, non-tender, bowel sounds audible Ext: Bilateral lower extremity edema/mild scrotal swelling/sacral edema Skin: warm/well-perfused/jaundiced skin? ecchymosis, multiple bruises Neuro: alert and oriented x3, no focal findings Psych: appropriate affect Objective Data Active Medications Cyanocobalamin (Cyanocobalamin (Vitamin B-12) 1,000 Mcg Tablet) 1,000 mcg PO DAILY [facility] Last Admin: 06/06/23 08:33 Dose: 1,000 mcg Documented By: GAYATHRI Dextrose (Dextrose 50 % 25 Gm/50 Ml Syringe) 25 gm IVPUSH Q15M PRN; Protocol PRN Reason: per Hypoglycemia Standing Ord. Glucose (Glucose Gel 15 Gm Gel..Gram.) 15 gm PO Q15M PRN; Protocol PRN Reason: per Hypoglycemia Standing Ord. Sodium Chloride (Ns) 1,000 mls @ 100 mls/hr IVCONT .Q10H [facility] Last Admin: 06/06/23 12:00 Dose: 100 mls/hr Documented By: GAYATHRI Insulin Glargine (Insulin Glargine,Hum.Rec.Anlog 100 Unit/Ml 10 Ml Vial) 20 unit SUBCUT BEDTIME [facility] Last Admin: 06/05/23 21:33 Dose: 20 unit Documented By: HAYLEY Insulin Human Lispro (Insulin Lispro 100 Unit/Ml 3 Ml Vial) 0 unit SUBCUT QIDACHS [facility]; Protocol Last Admin: 06/06/23 16:37 Dose: 8 unit Documented By: BENJIE Lactulose (Lactulose 20 Gm/30 Ml Solution) 20 gm PO TID [facility] Last Admin: 06/06/23 16:37 Dose: 20 gm Documented By: BENJIE Magnesium Oxide (Magnesium Oxide 400 Mg Tablet) 800 mg PO DAILY [facility] Last Admin: 06/06/23 08:33 Dose: 800 mg Documented By: GAYATHRI Multivitamins/Vitamin C (Multivitamin Tablet) 1 tab PO DAILY [facility] Last Admin: 06/06/23 08:33 Dose: 1 tab Documented By: GAYATHRI Non-Formulary Medication (Entecavir [Baraclude]) 1 tab PO DAILY [facility] Omeprazole (Omeprazole 20 Mg Capsule.Dr) 20 mg PO BID@0630,1630 [facility] Last Admin: 06/06/23 16:37 Dose: 20 mg Documented By: BENJIE Ondansetron HCl (Ondansetron Hcl 4 Mg/2 Ml Vial) 4 mg IVPUSH Q8H PRN PRN Reason: Nausea and Vomiting Oxycodone HCl (Oxycodone Hcl Immed Release 5 Mg Tablet) 5 mg PO Q4H PRN PRN Reason: Pain, Severe (Pain Scale 7-10) Last Admin: 06/06/23 08:33 Dose: 5 mg Documented By: GAYATHRI Pharmacy Consult (Consult Rx Perform Med Rec) 1 each MISCELLANE ONCE PRN PRN Reason: Consult order Rifaximin (Rifaximin 550 Mg Tablet) 550 mg PO BID [facility] Last Admin: 06/06/23 08:33 Dose: 550 mg Documented By: GAYATHRI Sodium Chloride (0.9 % Sodium Chloride Flush 3 Ml Syringe) 3 ml IVFLUSH QSHIFT [facility] Last Admin: 06/06/23 16:38 Dose: 3 ml Documented By: BENJIE Labs 06/04/23 05:30 06/06/23 05:38 Labs: Laboratory Results - last 24 hr 06/05/23 06/05/23 06/05/23 09:14 20:57 21:41 Anion Gap 9 L Estim Creat Clear Calc Estimated GFR POC Glucose 252 H Random Glucose 374 H* Calcium Total Bilirubin Direct Bilirubin AST ALT Alkaline Phosphatase Total Creatine Kinase > 53645 H Total Protein Albumin 06/06/23 06/06/23 06/06/23 05:38 07:58 11:17 Anion Gap 10 L Estim Creat Clear Calc 68.9 Estimated GFR > 60 POC Glucose 255 H 311 H Random Glucose 256 H Calcium 8.3 L Total Bilirubin 10.5 H Direct Bilirubin 2.5 H AST 1247 H ALT 458 H Alkaline Phosphatase 155 H Total Creatine Kinase 95362 H Total Protein 4.2 L Albumin 1.6 L 06/06/23 16:25 Anion Gap Estim Creat Clear Calc Estimated GFR POC Glucose 291 H Random Glucose Calcium Total Bilirubin Direct Bilirubin AST ALT Alkaline Phosphatase Total Creatine Kinase Total Protein Albumin Assessment and Plan (1) Rhabdomyolysis: Status: Acute (2) Transaminitis: Status: Acute (3) Antiphospholipid antibody syndrome: Status: Acute (4) Acute renal failure due to rhabdomyolysis: Status: Acute Plan 73yo M with transplant of HBV+ liver in 2010, hx HCV cirrhosis, 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 and tacrolimus, CPK trending [place] 25,000 [place] 35,000 [place] [address] today despite IV fluids and iv soda bicarb , being followed by Nephrology they recommend to discontinue tacrolimus, DC IV sodium bicarb since bicarb greater than 32 ,cont ivf 100ml /hr case discussed with hepatology team and they accepted patient ,therefore he will be transferred to [facility] will continue IVF, Follow CPK, BMP and repeat tacrolimus level pending, initial tacrolimus level 3.7. hyperbilirubinemia/transaminitis/generalized edema Worsening total bili and AST, suspect acute elevation due to dehydration, recurrent cirrhosis, elevated INR, low albumin, no evidence of encephalopathy will be transferred to [facility] hepatology service, case discussed with post liver resource coordinator Almita Thomas and Shari Jack from transplant team. Will add Glucerna shakes LEBRON resolved with IV hydration pancytopenia due to cirrhosis; no active bleeding noted follow CBC hx hepatic encephalopathy--not encephalopathic, continue lactulose + rifaximin DM2 elevated blood sugars continue basal and bolus insulin, diabetic diet and follow blood sugars liver transplant will DC tacrolimus as per Nephrology recommendation, tacrolimus level 3.7, repeat level pending chronic HBV - continue entecavir hx antiphospholip antibody (APLA )syndrome,- off anticoagulation? due to varices,? + anticardiolipin antibody turning negative Patient need continued inpatient hospitalization for IV fluids waiting for safe discharge to [facility]. Time Spent With Patient Time: Total time managing care of this patient today ____ minutes. Quality Stroke Does the patient have a stroke diagnosis?: No VTE Prior VTE?: No VTE Risk Level:: Medical - moderate - high VTE Device Contraindication: Treatment Not Indicated VTE Drug Contraindication: N/A - Med Ordered
[2023-06-06 19:58] LABS: Glucose, Whole Blood 257 mg/dL (60-115)
[2023-06-06 20:00] VITALS: BP 138/64; PULSE 96; RESP 20; TEMP 37.4; O2SAT 93
[2023-06-06] MEDS: Insulin Glargine,Hum.rec.anlog 100 UNIT/ML 10 ML VIAL 24 UNIT SUBCUT (20:21)
[2023-06-07 04:00] VITALS: BP 136/65; PULSE 96; RESP 16; TEMP 36.3; O2SAT 93
[2023-06-07] MEDS: Omeprazole 20 MG CAPSULE.DR PO ×2 (06:17→16:39)
[2023-06-07 07:22] VITALS: BP 129/60; PULSE 95; RESP 16; TEMP 37.6; O2SAT 94
[2023-06-07 07:28] LABS: Glucose, Whole Blood 188 mg/dL (60-115)
[2023-06-07] MEDS: Insulin Lispro 100 UNIT/ML 3 ML VIAL SUBCUT ×4 (08:02→21:56)
[2023-06-07] MEDS: Multivitamin TABLET 1 TAB PO (08:02)
[2023-06-07] MEDS: Lactulose 20 GM/30 ML SOLUTION PO ×3 (08:02→22:00)
[2023-06-07] MEDS: rifAXIMin 550 MG TABLET PO ×2 (08:02→21:55)
[2023-06-07] MEDS: Cyanocobalamin (Vitamin B-12) 1,000 MCG TABLET 1000 MCG PO (08:02)
[2023-06-07] MEDS: 0.9 % Sodium Chloride 1,000 ML 100 ML IVCONT ×2 (08:02→17:58)
[2023-06-07] MEDS: Magnesium Oxide 400 MG TABLET 800 MG PO (08:02)
[2023-06-07 08:06] LABS: Alanine Aminotransferase 510 U/L (0-40); Albumin Level 1.6 g/dL (3.5-5.0); Alkaline Phosphatase 158 U/L (39-117); Anion Gap 10 (12-20); Aspartate Amino Transferase 1183 U/L (5-37); Bilirubin Direct 3.1 mg/dL (0.0-0.5); Bilirubin Total 9.7 mg/dL (0.0-1.0); Blood Urea Nitrogen 19 mg/dL (9-16); Calcium 8.3 mg/dL (8.4-10.2); Carbon Dioxide 26 mmol/L (22-29); Chloride 99 mmol/L (96-108); Creatinine Clr Calc Pharmacy 68.9; Estimated Glomerular Filt Rate > 60; Glucose Random 217 mg/dL (60-115); Potassium 4.4 mmol/L (3.3-5.1); Sodium 131 mmol/L (135-145); Total Protein 4.2 g/dL (6.5-8.0)
--- NOTE | 2023-06-07 08:19 | P.PNNP_ITS ---
Subjective Subjective Date of Service: 06/07/23 Interval history: seen and examined feels better sitting out of bed d/w medical attending Physical Exam Vital Signs: Vital Signs: Last Vital Signs Temp 99.6 F 06/07/23 07:22 Pulse 95 06/07/23 07:22 Resp 16 06/07/23 07:22 BP 129/60 06/07/23 07:22 Pulse Ox 94 06/07/23 07:22 O2 Del Method Room Air 06/07/23 07:22 BMI result Body Mass Index 24.9 Const: General: alert and awake HEENT: Head: Yes normocephalic and Yes atraumatic Neck: Neck: Yes supple Resp: Auscultation: diminished lung sounds Cardio: Heart sounds: S1 normal heart sound present and S2 normal heart sound present GI: Palpation (GI): Soft to palpation and nontender Extrem: Right upper extremity: edema Objective Data Labs 06/04/23 05:30 06/07/23 07:37 Labs: Laboratory Results - last 24 hr 06/06/23 06/06/23 06/06/23 05:38 07:58 11:17 Sodium Potassium Chloride Carbon Dioxide Anion Gap BUN Creatinine Estim Creat Clear Calc Estimated GFR POC Glucose 255 H 311 H Random Glucose Calcium Total Bilirubin 10.5 H Direct Bilirubin 2.5 H AST 1247 H ALT 458 H Alkaline Phosphatase 155 H Total Protein 4.2 L Albumin 1.6 L 06/06/23 06/06/23 06/07/23 16:25 19:43 07:25 Sodium Potassium Chloride Carbon Dioxide Anion Gap BUN Creatinine Estim Creat Clear Calc Estimated GFR POC Glucose 291 H 257 H 188 H Random Glucose Calcium Total Bilirubin Direct Bilirubin AST ALT Alkaline Phosphatase Total Protein Albumin 06/07/23 07:37 Sodium 131 L Potassium 4.4 Chloride 99 Carbon Dioxide 26 Anion Gap 10 L BUN 19 H Creatinine 0.83 Estim Creat Clear Calc 68.9 Estimated GFR > 60 POC Glucose Random Glucose 217 H Calcium 8.3 L Total Bilirubin 9.7 H Direct Bilirubin 3.1 H AST 1183 H ALT 510 H Alkaline Phosphatase 158 H Total Protein 4.2 L Albumin 1.6 L Microbiology Microbiology Results: Microbiology 06/03/23 Unknown Urine clean catch - Urine myles top Urine Culture - Final Procedures Date of Service Date of Service: 06/07/23 Assessment & Plan Assessment and plan (1) Rhabdomyolysis: Status: Acute (2) Metabolic alkalosis: Status: Acute (3) Liver transplant recipient: Status: Acute Plan cpk down Sna down kidney function normal h/o liver transplant rhabdomyolysis due to ? tacrolimus and statins w/u for myositis, polymyositis etc REC c/w IVF NS resume tacrolimus 1 mg daily follow tacrolimus level transfer to [facility] if possible fluid restriction 1.5 L follow CPK follow kidney function and electrolytes Time Spent With Patient Time: Total time managing care of this patient today ____ minutes. Progress Note: Quality Stroke Does the patient have a stroke diagnosis?: No
[2023-06-07 10:03] LABS: Tacrolimus Prograf 2.7 NG/ML ((5-20))
[2023-06-07 10:03] LABS: Tacrolimus Prograf 2.8 NG/ML ((5-20))
--- NOTE | 2023-06-07 10:41 | HO.PM.IMPN ---
Subjective Subjective Date of Service: 06/07/23 Interval History: Feeling better this morning less right-sided chest discomfort, tolerating diet no nausea, no vomiting, no diarrhea, no fevers, no chills, complaining of generalized swelling and dark urine, no other acute issues overnight. Review of Systems All other system reviewed and negative. Physical Exam Vital Signs: Vital Signs: Last Vital Signs Temp 99.6 F 06/07/23 07:22 Pulse 95 06/07/23 07:22 Resp 16 06/07/23 07:22 BP 129/60 06/07/23 07:22 Pulse Ox 94 06/07/23 07:22 O2 Del Method Room Air 06/07/23 07:22 BMI result Body Mass Index 24.9 Const: Other: Gen: in no acute distress HEENT: sclera icteric, moist mucus membranes Neck: supple Lungs: clear to auscultation bilaterally Heart: regular rate and rhythm, no murmurs Abd: soft, non-tender, bowel sounds audible Ext:? Bilateral lower extremity edema/mild scrotal swelling/sacral edema Skin: warm/well-perfused/jaundiced skin? ecchymosis, multiple bruises Neuro: alert and oriented x3, no focal findings Psych: appropriate affect Objective Data Active Medications Cyanocobalamin (Cyanocobalamin (Vitamin B-12) 1,000 Mcg Tablet) 1,000 mcg PO DAILY [facility] Last Admin: 06/07/23 08:02 Dose: 1,000 mcg Documented By: GAYATHRI Dextrose (Dextrose 50 % 25 Gm/50 Ml Syringe) 25 gm IVPUSH Q15M PRN; Protocol PRN Reason: per Hypoglycemia Standing Ord. Glucose (Glucose Gel 15 Gm Gel..Gram.) 15 gm PO Q15M PRN; Protocol PRN Reason: per Hypoglycemia Standing Ord. Sodium Chloride (Ns) 1,000 mls @ 100 mls/hr IVCONT .Q10H [facility] Last Admin: 06/07/23 08:02 Dose: 100 mls/hr Documented By: GAYATHRI Insulin Glargine (Insulin Glargine,Hum.Rec.Anlog 100 Unit/Ml 10 Ml Vial) 24 unit SUBCUT BEDTIME [facility] Last Admin: 06/06/23 20:21 Dose: 24 unit Documented By: BENJIE Insulin Human Lispro (Insulin Lispro 100 Unit/Ml 3 Ml Vial) 0 unit SUBCUT QIDACHS [facility]; Protocol Last Admin: 06/07/23 08:02 Dose: 4 unit Documented By: GAYATHRI Lactulose (Lactulose 20 Gm/30 Ml Solution) 20 gm PO TID [facility] Last Admin: 06/07/23 08:02 Dose: 20 gm Documented By: GAYATHRI Magnesium Oxide (Magnesium Oxide 400 Mg Tablet) 800 mg PO DAILY [facility] Last Admin: 06/07/23 08:02 Dose: 800 mg Documented By: GAYATHRI Multivitamins/Vitamin C (Multivitamin Tablet) 1 tab PO DAILY [facility] Last Admin: 06/07/23 08:02 Dose: 1 tab Documented By: GAYATHRI Non-Formulary Medication (Entecavir [Baraclude]) 1 tab PO DAILY [facility] Omeprazole (Omeprazole 20 Mg Capsule.Dr) 20 mg PO BID@0630,1630 [facility] Last Admin: 06/07/23 06:17 Dose: 20 mg Documented By: CODY Ondansetron HCl (Ondansetron Hcl 4 Mg/2 Ml Vial) 4 mg IVPUSH Q8H PRN PRN Reason: Nausea and Vomiting Oxycodone HCl (Oxycodone Hcl Immed Release 5 Mg Tablet) 5 mg PO Q4H PRN PRN Reason: Pain, Severe (Pain Scale 7-10) Last Admin: 06/06/23 08:33 Dose: 5 mg Documented By: GAYATHRI Pharmacy Consult (Consult Rx Perform Med Rec) 1 each MISCELLANE ONCE PRN PRN Reason: Consult order Rifaximin (Rifaximin 550 Mg Tablet) 550 mg PO BID [facility] Last Admin: 06/07/23 08:02 Dose: 550 mg Documented By: GAYATHRI Sodium Chloride (0.9 % Sodium Chloride Flush 3 Ml Syringe) 3 ml IVFLUSH QSHIFT [facility] Last Admin: 06/07/23 08:09 Dose: Not Given Documented By: GAYATHRI Non-Admin Reason: IV Running Tacrolimus (Tacrolimus 0.5 Mg Capsule) 0.5 mg PO DAILY [facility] Labs 06/04/23 05:30 06/07/23 07:37 Labs: Laboratory Results - last 24 hr 06/06/23 06/06/23 06/06/23 05:38 08:22 11:17 Anion Gap Estim Creat Clear Calc Estimated GFR POC Glucose 311 H Random Glucose Calcium Total Bilirubin Direct Bilirubin AST ALT Alkaline Phosphatase Total Creatine Kinase Total Protein Albumin Tacrolimus 2.7 L 2.8 L 06/06/23 06/06/23 06/07/23 16:25 19:43 07:25 Anion Gap Estim Creat Clear Calc Estimated GFR POC Glucose 291 H 257 H 188 H Random Glucose Calcium Total Bilirubin Direct Bilirubin AST ALT Alkaline Phosphatase Total Creatine Kinase Total Protein Albumin Tacrolimus 06/07/23 07:37 Anion Gap 10 L Estim Creat Clear Calc 68.9 Estimated GFR > 60 POC Glucose Random Glucose 217 H Calcium 8.3 L Total Bilirubin 9.7 H Direct Bilirubin 3.1 H AST 1183 H ALT 510 H Alkaline Phosphatase 158 H Total Creatine Kinase 81469 H Total Protein 4.2 L Albumin 1.6 L Tacrolimus Assessment and Plan (1) Rhabdomyolysis: Status: Acute (2) Transaminitis: Status: Acute (3) Antiphospholipid antibody syndrome: Status: Acute (4) Acute renal failure due to rhabdomyolysis: Status: Acute Plan 73yo M with transplant of HBV+ liver in 2010, hx HCV cirrhosis, 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 and tacrolimus, CPK trending down initially bumped from 25,000 [place] 35,000 [place] [address] [place] [id number] Continue IV fluids s/p iv soda bicarb , reume tacrolimus being followed by Nephrology case discussed with hepatology team and they accepted patient ,therefore he will be transferred to [facility] will continue IVF, resume tacrolimus 0.5 mg daily home dose Repeat tacrolimus level 2.8 likely since tacrolimus was held hyperbilirubinemia/transaminitis/generalized edema total bili and AST, remains elevated but not worsening suspect acute elevation due to dehydration, recurrent cirrhosis with elevated INR, low albumin, no evidence of encephalopathy will be transferred to [facility] hepatology service, case discussed with post liver office service coordinator Almita Thomas and Shari Jack from transplant team. Continue Ensure t.i.d. LEBRON resolved with IV hydration pancytopenia due to cirrhosis; no active bleeding noted follow CBC hx hepatic encephalopathy--not encephalopathic, continue lactulose + rifaximin DM2 elevated blood sugars continue basal and bolus insulin, dosage adjusted diabetic diet and follow blood sugars liver transplant continue tacrolimus at home does , tacrolimus level 3.7, on admission repeat level 2.7 since tacrolimus was held. chronic HBV - continue entecavir hx antiphospholip antibody (APLA )syndrome,- off anticoagulation? due to varices,? + anticardiolipin antibody turning negative Patient need continued inpatient hospitalization for IV fluids waiting for safe discharge to [facility]. Time Spent With Patient Time: Total time managing care of this patient today ____ minutes. Quality Stroke Does the patient have a stroke diagnosis?: No VTE Prior VTE?: No VTE Risk Level:: Medical - moderate - high VTE Device Contraindication: Treatment Not Indicated VTE Drug Contraindication: N/A - Med Ordered
[2023-06-07 11:23] LABS: Glucose, Whole Blood 326 mg/dL (60-115)
[2023-06-07] MEDS: Tacrolimus 0.5 MG CAPSULE PO (12:14)
[2023-06-07 15:28] VITALS: BP 152/64; PULSE 94; RESP 15; TEMP 36.8; O2SAT 93
[2023-06-07 16:17] LABS: Glucose, Whole Blood 236 mg/dL (60-115)
[2023-06-07 19:18] VITALS: BP 152/68; PULSE 93; RESP 18; TEMP 37.1; O2SAT 94
[2023-06-07 20:38] LABS: Glucose, Whole Blood 182 mg/dL (60-115)
[2023-06-07] MEDS: Insulin Glargine,Hum.rec.anlog 100 UNIT/ML 10 ML VIAL 24 UNIT SUBCUT (21:55)
[2023-06-08 04:00] VITALS: BP 140/68; PULSE 101; RESP 16; TEMP 36.3; O2SAT 94
[2023-06-08] MEDS: 0.9 % Sodium Chloride 1,000 ML 100 ML IVCONT (04:01)
[2023-06-08] MEDS: Omeprazole 20 MG CAPSULE.DR PO ×2 (05:45→16:38)
[2023-06-08] MEDS: oxyCODONE HCl Immed Release 5 MG TABLET PO (05:45)
[2023-06-08 06:51] LABS: Alanine Aminotransferase 497 U/L (0-40); Albumin Level 1.5 g/dL (3.5-5.0); Alkaline Phosphatase 214 U/L (39-117); Anion Gap 11 (12-20); Aspartate Amino Transferase 969 U/L (5-37); Bilirubin Direct 2.9 mg/dL (0.0-0.5); Bilirubin Total 9.1 mg/dL (0.0-1.0); Blood Urea Nitrogen 20 mg/dL (9-16); Calcium 8.7 mg/dL (8.4-10.2); Carbon Dioxide 26 mmol/L (22-29); Chloride 102 mmol/L (96-108); Creatinine Clr Calc Pharmacy 64.3; Estimated Glomerular Filt Rate > 60; Glucose Random 130 mg/dL (60-115); Potassium 3.8 mmol/L (3.3-5.1); Sodium 135 mmol/L (135-145)
[2023-06-08 07:08] VITALS: BP 113/61; PULSE 116; RESP 18; TEMP 36.9; O2SAT 93
[2023-06-08 07:15] LABS: Glucose, Whole Blood 123 mg/dL (60-115)
--- NOTE | 2023-06-08 07:53 | PM.PNNEP ---
Subjective Subjective Date of Service: 06/08/23 Interval history: seen and examined c/o swelling no other complaints Physical Exam Vital Signs: Vital Signs: Last Vital Signs Temp 98.5 F 06/08/23 07:08 Pulse 116 H 06/08/23 07:08 Resp 18 06/08/23 07:08 BP 113/61 06/08/23 07:08 Pulse Ox 93 06/08/23 07:08 O2 Del Method Room Air 06/08/23 07:08 BMI result Body Mass Index 24.9 Const: General: alert and awake HEENT: Head: Yes normocephalic and Yes atraumatic Neck: Neck: Yes supple Resp: Auscultation: diminished lung sounds Cardio: Heart sounds: S1 normal heart sound present and S2 normal heart sound present GI: Palpation (GI): Soft to palpation and nontender Extrem: Right upper extremity: edema Objective Data Labs 06/04/23 05:30 06/08/23 05:22 Labs: Laboratory Results - last 24 hr 06/06/23 06/06/23 06/07/23 05:38 08:22 07:37 Sodium 131 L Potassium 4.4 Chloride 99 Carbon Dioxide 26 Anion Gap 10 L BUN 19 H Creatinine 0.83 Estim Creat Clear Calc 68.9 Estimated GFR > 60 POC Glucose Random Glucose 217 H Calcium 8.3 L Total Bilirubin 9.7 H Direct Bilirubin 3.1 H AST 1183 H ALT 510 H Alkaline Phosphatase 158 H Total Creatine Kinase 34661 H Total Protein 4.2 L Albumin 1.6 L Tacrolimus 2.7 L 2.8 L 06/07/23 06/07/23 06/07/23 11:19 16:02 20:14 Sodium Potassium Chloride Carbon Dioxide Anion Gap BUN Creatinine Estim Creat Clear Calc Estimated GFR POC Glucose 326 H 236 H 182 H Random Glucose Calcium Total Bilirubin Direct Bilirubin AST ALT Alkaline Phosphatase Total Creatine Kinase Total Protein Albumin Tacrolimus 06/08/23 06/08/23 05:22 07:12 Sodium 135 Potassium 3.8 Chloride 102 Carbon Dioxide 26 Anion Gap 11 L BUN 20 H Creatinine 0.89 Estim Creat Clear Calc 64.3 Estimated GFR > 60 POC Glucose 123 H Random Glucose 130 H Calcium 8.7 Total Bilirubin 9.1 H Direct Bilirubin 2.9 H AST 969 H ALT 497 H Alkaline Phosphatase 214 H Total Creatine Kinase 11129 H Total Protein 4.0 L Albumin 1.5 L Tacrolimus Microbiology Microbiology Results: Microbiology 06/03/23 Unknown Urine clean catch - Urine myles top Urine Culture - Final Procedures Date of Service Date of Service: 06/08/23 Assessment & Plan Assessment and plan (1) Rhabdomyolysis: Status: Acute (2) Metabolic alkalosis: Status: Acute (3) Liver transplant recipient: Status: Acute Plan cpk down low tacrolimus level kidney function normal h/o liver transplant rhabdomyolysis due to ? tacrolimus and statins w/u for myositis, polymyositis etc REC c/w IVF NS resume home dose tacrolimus follow tacrolimus level furosemide 20 mg IV x 1 fluid restriction 1.5 L follow CPK follow kidney function and electrolytes Time Spent With Patient Time: Total time managing care of this patient today ____ minutes. Progress Note: Quality Stroke Does the patient have a stroke diagnosis?: No
[2023-06-08] MEDS: Cyanocobalamin (Vitamin B-12) 1,000 MCG TABLET 1000 MCG PO (08:19)
[2023-06-08] MEDS: Magnesium Oxide 400 MG TABLET 800 MG PO (08:19)
[2023-06-08] MEDS: rifAXIMin 550 MG TABLET PO ×2 (08:19→21:02)
[2023-06-08] MEDS: 0.9 % Sodium Chloride Flush 3 ML SYRINGE IVFLUSH ×2 (08:19→15:24)
[2023-06-08] MEDS: Multivitamin TABLET 1 TAB PO (08:19)
[2023-06-08] MEDS: Furosemide 20 MG/2 ML VIAL IVPUSH (08:19)
[2023-06-08] MEDS: Lactulose 20 GM/30 ML SOLUTION PO ×2 (08:19→21:02)
[2023-06-08 11:47] LABS: Glucose, Whole Blood 189 mg/dL (60-115)
[2023-06-08] MEDS: Insulin Lispro 100 UNIT/ML 3 ML VIAL SUBCUT ×3 (11:50→21:01)
--- NOTE | 2023-06-08 12:06 | MHC.CM.PN ---
LATE NOTE FOR 9:14 am: Messaged RE clarification of D/C; there are notes indicative of both a home D/C as well as an acute txfr. 12:07 pm: pending response. CM to follow.
[2023-06-08] MEDS: Tacrolimus 1 MG CAPSULE PO (13:41)
--- NOTE | 2023-06-08 15:17 | P.PNIM_ITS ---
Subjective Subjective Date of Service: 06/08/23 Interval History: Feeling better in regard to less right-sided chest pain, urine is more clear but complaining of generalized edema and discomfort related to scrotal swelling, denies chest pain, no shortness of breath no lightheadedness, no dizziness, no fevers, no chills, LFTs and CPK trending down. Review of Systems All other system reviewed and negative Physical Exam Vital Signs: Vital Signs: Last Vital Signs Temp 98.5 F 06/08/23 07:08 Pulse 116 H 06/08/23 07:08 Resp 18 06/08/23 07:08 BP 113/61 06/08/23 07:08 Pulse Ox 93 06/08/23 07:08 O2 Del Method Room Air 06/08/23 07:08 BMI result Body Mass Index 24.9 Const: Other: Gen: in no acute distress HEENT: sclera icteric, moist mucus membranes Neck: supple Lungs: clear to auscultation bilaterally Heart: regular rate and rhythm, no murmurs Abd: soft, non-tender, bowel sounds audible Ext:? Bilateral lower extremity edema/scrotal swelling/sacral edema Skin: warm/well-perfused/jaundiced skin? ecchymosis, multiple bruises Neuro: alert and oriented x3, no focal findings Psych: appropriate affect Objective Data Active Medications Cyanocobalamin (Cyanocobalamin (Vitamin B-12) 1,000 Mcg Tablet) 1,000 mcg PO DAILY [facility] Last Admin: 06/08/23 08:19 Dose: 1,000 mcg Documented By: GAYATHRI Dextrose (Dextrose 50 % 25 Gm/50 Ml Syringe) 25 gm IVPUSH Q15M PRN; Protocol PRN Reason: per Hypoglycemia Standing Ord. Glucose (Glucose Gel 15 Gm Gel..Gram.) 15 gm PO Q15M PRN; Protocol PRN Reason: per Hypoglycemia Standing Ord. Sodium Chloride (Ns) 1,000 mls @ 80 mls/hr IVCONT .[id number] [facility] Insulin Glargine (Insulin Glargine,Hum.Rec.Anlog 100 Unit/Ml 10 Ml Vial) 24 unit SUBCUT BEDTIME [facility] Last Admin: 06/07/23 21:55 Dose: 24 unit Documented By: AUGUSTINA Insulin Human Lispro (Insulin Lispro 100 Unit/Ml 3 Ml Vial) 0 unit SUBCUT QIDACHS [facility]; Protocol Last Admin: 06/08/23 11:50 Dose: 4 unit Documented By: GAYATHRI Lactulose (Lactulose 20 Gm/30 Ml Solution) 20 gm PO TID [facility] Last Admin: 06/08/23 13:48 Dose: Not Given Documented By: GAYATHRI Non-Admin Reason: Patient Refused Magnesium Oxide (Magnesium Oxide 400 Mg Tablet) 800 mg PO DAILY [facility] Last Admin: 06/08/23 08:19 Dose: 800 mg Documented By: GAYATHRI Multivitamins/Vitamin C (Multivitamin Tablet) 1 tab PO DAILY [facility] Last Admin: 06/08/23 08:19 Dose: 1 tab Documented By: GAYATHRI Non-Formulary Medication (Entecavir [Baraclude]) 1 tab PO DAILY [facility] Omeprazole (Omeprazole 20 Mg Capsule.) 20 mg PO BID@0630,1630 [facility] Last Admin: 06/08/23 05:45 Dose: 20 mg Documented By: AMANDA Ondansetron HCl (Ondansetron Hcl 4 Mg/2 Ml Vial) 4 mg IVPUSH Q8H PRN PRN Reason: Nausea and Vomiting Pharmacy Consult (Consult Rx Perform Med Rec) 1 each MISCELLANE ONCE PRN PRN Reason: Consult order Rifaximin (Rifaximin 550 Mg Tablet) 550 mg PO BID [facility] Last Admin: 06/08/23 08:19 Dose: 550 mg Documented By: GAYATHRI Sodium Chloride (0.9 % Sodium Chloride Flush 3 Ml Syringe) 3 ml IVFLUSH QSHIFT [facility] Last Admin: 06/08/23 08:19 Dose: 3 ml Documented By: GAYATHRI Tacrolimus (Tacrolimus 1 Mg Capsule) 1 mg PO DAILY [facility] Last Admin: 06/08/23 13:41 Dose: 1 mg Documented By: GAYATHRI Labs 06/04/23 05:30 06/08/23 05:22 Labs: Laboratory Results - last 24 hr 06/07/23 06/07/23 06/08/23 16:02 20:14 05:22 Anion Gap 11 L Estim Creat Clear Calc 64.3 Estimated GFR > 60 POC Glucose 236 H 182 H Random Glucose 130 H Calcium 8.7 Total Bilirubin 9.1 H Direct Bilirubin 2.9 H AST 969 H ALT 497 H Alkaline Phosphatase 214 H Total Creatine Kinase 47290 H Total Protein 4.0 L Albumin 1.5 L 06/08/23 06/08/23 07:12 11:43 Anion Gap Estim Creat Clear Calc Estimated GFR POC Glucose 123 H 189 H Random Glucose Calcium Total Bilirubin Direct Bilirubin AST ALT Alkaline Phosphatase Total Creatine Kinase Total Protein Albumin Assessment and Plan (1) Rhabdomyolysis: Status: Acute (2) Transaminitis: Status: Acute (3) Antiphospholipid antibody syndrome: Status: Acute (4) Acute renal failure due to rhabdomyolysis: Status: Acute Plan 73yo M with transplant of HBV+ liver in 2010, hx HCV cirrhosis, 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 and tacrolimus, CPK trending down initially bumped from 25,000 [place] 35,000 [place] [address] [place] [id number] Continue IV fluids decreased to 80 mL per hour s/p iv soda bicarb , cont. tacrolimus , dose of tacrolimus increased from 0.5-[address] Tineo being followed by Nephrology case discussed with hepatology team and they accepted patient ,therefore he will be transferred to [facility] will continue IVF, resume tacrolimus 0.5 mg daily home dose Repeat tacrolimus level 2.8 likely since tacrolimus was held, generalized edema likely due to low alb and ivf given iv lasix and added ensure and decrease ivf will follow hyperbilirubinemia/transaminitis/generalized edema total bili and AST, gradually trending down, acute elevation likely due to dehydration, recurrent cirrhosis with elevated INR, low albumin, no evidence of encephalopathy will be transferred to [facility] hepatology service, case discussed with post liver pain coordinator Almita Thomas and Shari Jack [phone] from transplant team. Since patient LFTs are improving will rediscuss transferred to [facility] as tomorrow patient has been waiting for bed for last 4 days. Continue Ensure t.i.d. LEBRON resolved with IV hydration pancytopenia due to cirrhosis; no active bleeding noted follow CBC. hx hepatic encephalopathy--not encephalopathic, continue lactulose + rifaximin DM2 stable blood sugars continue basal and bolus insulin, dosage adjusted lucy betic diet and follow blood sugars liver transplant continue tacrolimus at home does , tacrolimus level 3.7, on admission repeat level 2.7 since tacrolimus was held.follow tacrolimus level in next 1-2 days. chronic HBV - continue entecavir hx antiphospholip antibody (APLA )syndrome,- off anticoagulation? due to varices,? + anticardiolipin antibody turning negative Patient need continued inpatient hospitalization for IV fluids waiting for safe discharge to [facility]. Time Spent With Patient Time: Total time managing care of this patient today ____ minutes. Quality Stroke Does the patient have a stroke diagnosis?: No VTE Prior VTE?: No VTE Risk Level:: Medical - moderate - high VTE Device Contraindication: Treatment Not Indicated VTE Drug Contraindication: N/A - Med Ordered
[2023-06-08] MEDS: 0.9 % Sodium Chloride 1,000 ML 80 ML IVCONT (15:23)
[2023-06-08 15:36] VITALS: BP 140/63; PULSE 94; RESP 20; TEMP 36.6; O2SAT 94
[2023-06-08 16:11] LABS: Glucose, Whole Blood 265 mg/dL (60-115)
[2023-06-08 17:51] VITALS: BP 136/67; PULSE 85; TEMP 36.6; O2SAT 98
[2023-06-08 20:44] LABS: Glucose, Whole Blood 205 mg/dL (60-115)
[2023-06-08] MEDS: Insulin Glargine,Hum.rec.anlog 100 UNIT/ML 10 ML VIAL 24 UNIT SUBCUT (21:00)
[2023-06-09] MEDS: 0.9 % Sodium Chloride 1,000 ML 80 ML IVCONT ×2 (01:44→14:23)
[2023-06-09] MEDS: oxyCODONE HCl Immed Release 5 MG TABLET PO (02:42)
[2023-06-09 03:22] VITALS: BP 140/64; PULSE 96; RESP 16; TEMP 36.8; O2SAT 93
[2023-06-09] MEDS: Omeprazole 20 MG CAPSULE.DR PO ×2 (05:34→16:57)
[2023-06-09 07:35] LABS: Glucose, Whole Blood 129 mg/dL (60-115)
[2023-06-09 07:45] LABS: Alanine Aminotransferase 473 U/L (0-40); Albumin Level 1.5 g/dL (3.5-5.0); Alkaline Phosphatase 186 U/L (39-117); Anion Gap 9 (12-20); Aspartate Amino Transferase 737 U/L (5-37); Bilirubin Direct 2.9 mg/dL (0.0-0.5); Bilirubin Total 9.3 mg/dL (0.0-1.0); Blood Urea Nitrogen 23 mg/dL (9-16); Calcium 8.8 mg/dL (8.4-10.2); Carbon Dioxide 27 mmol/L (22-29); Chloride 104 mmol/L (96-108); Creatinine Clr Calc Pharmacy 66.5; Estimated Glomerular Filt Rate > 60; Glucose Random 134 mg/dL (60-115); Potassium 3.9 mmol/L (3.3-5.1); Sodium 136 mmol/L (135-145)
[2023-06-09 07:52] VITALS: BP 124/67; PULSE 135; RESP 18; TEMP 36.6; O2SAT 96
[2023-06-09] MEDS: Magnesium Oxide 400 MG TABLET 800 MG PO (08:54)
[2023-06-09] MEDS: rifAXIMin 550 MG TABLET PO ×2 (08:54→22:07)
[2023-06-09] MEDS: Tacrolimus 1 MG CAPSULE PO (08:54)
[2023-06-09] MEDS: Cyanocobalamin (Vitamin B-12) 1,000 MCG TABLET 1000 MCG PO (08:54)
[2023-06-09] MEDS: Lactulose 20 GM/30 ML SOLUTION PO ×2 (08:54→16:57)
[2023-06-09] MEDS: Multivitamin TABLET 1 TAB PO (08:54)
--- NOTE | 2023-06-09 08:55 | MHC.CLN ---
NUTRITION ADDED 1500 ML FLUID RESTRICTION TO DIET ORDER PER NEPHROLOGY REC.
[2023-06-09 08:59] VITALS: PULSE 107
[2023-06-09] MEDS: Furosemide 40 MG/4 ML VIAL IVPUSH (10:36)
--- NOTE | 2023-06-09 10:51 | P.PNIM_ITS ---
Subjective Subjective Date of Service: 06/09/23 Interval History: This history was taken in Nepali from the patient. c/o generalized swelling including abdomen and scrotum no dyspnea CPK + LFTs improving Review of Systems Review of Systems: Yes all other systems are reviewed and are negative Physical Exam Vital Signs: Vital Signs: Last Vital Signs Temp 97.9 F 06/09/23 07:52 Pulse 107 H 06/09/23 08:59 Resp 18 06/09/23 07:52 BP 124/67 06/09/23 07:52 Pulse Ox 96 06/09/23 07:52 O2 Del Method Room Air 06/09/23 07:52 BMI result Body Mass Index 24.9 Gen: in no acute distress HEENT: sclera anicteric, moist mucus membranes Neck: supple Lungs: clear to auscultation bilaterally Heart: regular rate and rhythm, no murmurs Abd: soft, non-tender, non-distended Ext: 3+ LE edema, scrotal swelling Skin: warm/well-perfused, multiple bruises Neuro: alert and oriented x3, no focal findings Psych: appropriate affect Objective Data Active Medications Cyanocobalamin (Cyanocobalamin (Vitamin B-12) 1,000 Mcg Tablet) 1,000 mcg PO DAILY [facility] Last Admin: 06/09/23 08:54 Dose: 1,000 mcg Documented By: GARDENIA Dextrose (Dextrose 50 % 25 Gm/50 Ml Syringe) 25 gm IVPUSH Q15M PRN; Protocol PRN Reason: per Hypoglycemia Standing Ord. Glucose (Glucose Gel 15 Gm Gel..Gram.) 15 gm PO Q15M PRN; Protocol PRN Reason: per Hypoglycemia Standing Ord. Sodium Chloride (Ns) 1,000 mls @ 80 mls/hr IVCONT .[id number] [facility] Last Admin: 06/09/23 01:44 Dose: 80 mls/hr Documented By: MIKE Insulin Glargine (Insulin Glargine,Hum.Rec.Anlog 100 Unit/Ml 10 Ml Vial) 24 unit SUBCUT BEDTIME [facility] Last Admin: 06/08/23 21:00 Dose: 24 unit Documented By: AUGUSTINA Insulin Human Lispro (Insulin Lispro 100 Unit/Ml 3 Ml Vial) 0 unit SUBCUT QIDACHS [facility]; Protocol Last Admin: 06/09/23 07:38 Dose: Not Given Documented By: GARDENIA Non-Admin Reason: No Insulin Coverage Lactulose (Lactulose 20 Gm/30 Ml Solution) 20 gm PO TID [facility] Last Admin: 06/09/23 08:54 Dose: 20 gm Documented By: GARDENIA Magnesium Oxide (Magnesium Oxide 400 Mg Tablet) 800 mg PO DAILY [facility] Last Admin: 06/09/23 08:54 Dose: 800 mg Documented By: GARDENIA Multivitamins/Vitamin C (Multivitamin Tablet) 1 tab PO DAILY [facility] Last Admin: 06/09/23 08:54 Dose: 1 tab Documented By: GARDENIA Non-Formulary Medication (Entecavir [Baraclude]) 1 tab PO DAILY [facility] Omeprazole (Omeprazole 20 Mg Capsule.) 20 mg PO BID@0630,1630 [facility] Last Admin: 06/09/23 05:34 Dose: 20 mg Documented By: MIKE Ondansetron HCl (Ondansetron Hcl 4 Mg/2 Ml Vial) 4 mg IVPUSH Q8H PRN PRN Reason: Nausea and Vomiting Pharmacy Consult (Consult Rx Perform Med Rec) 1 each MISCELLANE ONCE PRN PRN Reason: Consult order Rifaximin (Rifaximin 550 Mg Tablet) 550 mg PO BID [facility] Last Admin: 06/09/23 08:54 Dose: 550 mg Documented By: GARDENIA Sodium Chloride (0.9 % Sodium Chloride Flush 3 Ml Syringe) 3 ml IVFLUSH QSHIFT [facility] Last Admin: 06/09/23 08:56 Dose: Not Given Documented By: GARDENIA Non-Admin Reason: IV Running Tacrolimus (Tacrolimus 1 Mg Capsule) 1 mg PO DAILY [facility] Last Admin: 06/09/23 08:54 Dose: 1 mg Documented By: GARDENIA Labs 06/04/23 05:30 06/09/23 05:39 Labs: Laboratory Results - last 24 hr 06/08/23 06/08/23 06/08/23 11:43 15:40 20:22 Anion Gap Estim Creat Clear Calc Estimated GFR POC Glucose 189 H 265 H 205 H Random Glucose Calcium Total Bilirubin Direct Bilirubin AST ALT Alkaline Phosphatase Total Creatine Kinase Total Protein Albumin 06/09/23 06/09/23 05:39 07:27 Anion Gap 9 L Estim Creat Clear Calc 66.5 Estimated GFR > 60 POC Glucose 129 H Random Glucose 134 H Calcium 8.8 Total Bilirubin 9.3 H Direct Bilirubin 2.9 H AST 737 H ALT 473 H Alkaline Phosphatase 186 H Total Creatine Kinase 6851 H Total Protein 4.0 L Albumin 1.5 L Impressions Scrotum Ultrasound 06/09/23 03:15 IMPRESSION: 1. Bilateral scrotal skin thickening, left greater than right. 2. Small bilateral hydroceles. 3. No findings of testicular torsion. 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, hx TIPS presenting with 2 wk of dark-colored urine, muscle aches, and weakness admitted for rhabdomyolysis rhabdomyolysis, non-traumatic - possibly due to statin?boosted by tacrolimus - continue IV fluids, CPK trending down - diurese with furosemide 40 mg IV x1 - accepted by [facility], awaiting bed for past 5d, per transfer center today still awaiting bed transaminitis - LFTs improving, likely cross-reactivity with skeletal muscle LEBRON - resolved with IV hydration pancytopenia - due to cirrhosis hx hepatic encephalopathy - continue lactulose + rifaximin DM2 - basal-bolus insulin liver transplant - tacrolimus, check level in AM HBV, chronic - entecavir hx APLAS - off AC due to varices and loss of anticardiolipin Ab VTE ppx - SCDs dispo - awaiting transfer to [facility] Time Spent With Patient Time: Total time managing care of this patient today __40__ minutes. Quality Stroke Does the patient have a stroke diagnosis?: No VTE Prior VTE?: No VTE Risk Level:: Medical - moderate - high VTE Device Contraindication: Treatment Not Indicated VTE Drug Contraindication: N/A - Med Ordered
[2023-06-09 11:18] LABS: Glucose, Whole Blood 216 mg/dL (60-115)
--- NOTE | 2023-06-09 11:43 | PM.PNNEP ---
Subjective Subjective Date of Service: 06/09/23 Interval history: seen and examined c/o generalized swelling including abdomen and scrotum Physical Exam Vital Signs: Vital Signs: Last Vital Signs Temp 97.9 F 06/09/23 07:52 Pulse 107 H 06/09/23 08:59 Resp 18 06/09/23 07:52 BP 124/67 06/09/23 07:52 Pulse Ox 96 06/09/23 07:52 O2 Del Method Room Air 06/09/23 07:52 BMI result Body Mass Index 24.9 Const: General: alert and awake HEENT: Head: Yes normocephalic and Yes atraumatic Neck: Neck: Yes supple Resp: Auscultation: diminished lung sounds Cardio: Heart sounds: S1 normal heart sound present and S2 normal heart sound present GI: Palpation (GI): Soft to palpation and nontender Extrem: Right upper extremity: edema Objective Data Labs 06/04/23 05:30 06/09/23 05:39 Labs: Laboratory Results - last 24 hr 06/08/23 06/08/23 06/08/23 11:43 15:40 20:22 Sodium Potassium Chloride Carbon Dioxide Anion Gap BUN Creatinine Estim Creat Clear Calc Estimated GFR POC Glucose 189 H 265 H 205 H Random Glucose Calcium Total Bilirubin Direct Bilirubin AST ALT Alkaline Phosphatase Total Creatine Kinase Total Protein Albumin 06/09/23 06/09/23 06/09/23 05:39 07:27 11:12 Sodium 136 Potassium 3.9 Chloride 104 Carbon Dioxide 27 Anion Gap 9 L BUN 23 H Creatinine 0.86 Estim Creat Clear Calc 66.5 Estimated GFR > 60 POC Glucose 129 H 216 H Random Glucose 134 H Calcium 8.8 Total Bilirubin 9.3 H Direct Bilirubin 2.9 H AST 737 H ALT 473 H Alkaline Phosphatase 186 H Total Creatine Kinase 6851 H Total Protein 4.0 L Albumin 1.5 L Microbiology Microbiology Results: Microbiology 06/03/23 Unknown Urine clean catch - Urine myles top Urine Culture - Final Procedures Date of Service Date of Service: 06/09/23 Assessment & Plan Assessment and plan (1) Rhabdomyolysis: Status: Acute (2) Metabolic alkalosis: Status: Acute (3) Liver transplant recipient: Status: Acute Plan cpk trending down low tacrolimus level kidney function normal h/o liver transplant rhabdomyolysis due to ? tacrolimus and statins w/u for myositis, polymyositis etc low albumin and anasarca REC dc IVF in am change tacrolimus 1 mg in am and 0.5 mg in pm follow tacrolimus level furosemide 40 mg IV daily fluid restriction 1.5 L follow CPK follow kidney function and electrolytes Time Spent With Patient Time: Total time managing care of this patient today ____ minutes. Progress Note: Quality Stroke Does the patient have a stroke diagnosis?: No
[2023-06-09] MEDS: Insulin Lispro 100 UNIT/ML 3 ML VIAL SUBCUT ×3 (12:11→22:07)
[2023-06-09 15:47] VITALS: BP 146/78; PULSE 75; RESP 20; TEMP 36.4; O2SAT 97
[2023-06-09 16:16] LABS: Glucose, Whole Blood 207 mg/dL (60-115)
--- NOTE | 2023-06-09 17:22 | PC.NURSE ---
Per nursing notification patient's family was asked to bring Entecavir from home - they agreed to bring it tomorrow
[2023-06-09] MEDS: Acetaminophen 325 MG TABLET PO (19:02)
[2023-06-09 20:00] VITALS: BP 133/65; PULSE 98; RESP 20; TEMP 36.9; O2SAT 93
[2023-06-09 20:56] LABS: Glucose, Whole Blood 232 mg/dL (60-115)
[2023-06-09] MEDS: Insulin Glargine,Hum.rec.anlog 100 UNIT/ML 10 ML VIAL 24 UNIT SUBCUT (22:08)
[2023-06-10 01:35] VITALS: BP 131/60; PULSE 89; RESP 18; TEMP 36.8; O2SAT 95
[2023-06-10] MEDS: 0.9 % Sodium Chloride 1,000 ML 80 ML IVCONT (02:57)
[2023-06-10] MEDS: Omeprazole 20 MG CAPSULE.DR PO ×2 (05:31→16:48)
[2023-06-10 06:32] LABS: INTERNATIONAL NORM RATIO 1.9 (0.9-1.1); Prothrombin Time 22.9 SEC (10.0-13.1)
[2023-06-10 07:07] LABS: Hematocrit 32.1 % (42.0-52.0); Hemoglobin 10.7 g/dl (14.0-18.0); Mean Corpuscular HGB Conc 33.3 g/dl (31.0-36.0); Red Blood Count 3.82 X10*6/uL (4.60-5.80); Red Cell Distribution Width 22.8 % (11.0-16.0); White Blood Count 4.9 X10*3/uL (4.8-10.8)
[2023-06-10 07:10] LABS: PLT ABN DIST 1
[2023-06-10 07:32] VITALS: BP 132/64; PULSE 97; RESP 17; TEMP 36.3; O2SAT 94
[2023-06-10 07:40] LABS: Glucose, Whole Blood 85 mg/dL (60-115)
[2023-06-10 08:16] LABS: Alanine Aminotransferase 396 U/L (0-40); Albumin Level 1.4 g/dL (3.5-5.0); Alkaline Phosphatase 184 U/L (39-117); Aspartate Amino Transferase 483 U/L (5-37); Bilirubin Direct 2.5 mg/dL (0.0-0.5); Bilirubin Total 8.1 mg/dL (0.0-1.0)
[2023-06-10 08:30] LABS: Procalcitonin 0.29 ng/mL
--- NOTE | 2023-06-10 08:51 | P.PNIM_ITS ---
Subjective Subjective Date of Service: 06/10/23 Interval History: anasarca slightly improved some cough diuresing This history was taken in Martiniquais from the patient. Review of Systems Review of Systems: Yes all other systems are reviewed and are negative Physical Exam Vital Signs: Vital Signs: Last Vital Signs Temp 97.3 F 06/10/23 07:32 Pulse 97 06/10/23 07:32 Resp 17 06/10/23 07:32 BP 132/64 06/10/23 07:32 Pulse Ox 94 06/10/23 07:32 O2 Del Method Room Air 06/10/23 07:32 BMI result Body Mass Index 24.9 Gen: in no acute distress HEENT: sclera anicteric, moist mucus membranes Neck: supple Lungs: diminished R side Heart: regular rate and rhythm, no murmurs Abd: soft, non-tender, non-distended Ext: 3+ LE edema, scrotal swelling Skin: warm/well-perfused, multiple bruises Neuro: alert and oriented x3, no focal findings Psych: appropriate affect Objective Data Active Medications Acetaminophen (Acetaminophen 325 Mg Tablet) 325 mg PO Q4H PRN PRN Reason: severe pain Last Admin: 06/09/23 19:02 Dose: 325 mg Documented By: GARDENIA Cyanocobalamin (Cyanocobalamin (Vitamin B-12) 1,000 Mcg Tablet) 1,000 mcg PO DAILY [facility] Last Admin: 06/09/23 08:54 Dose: 1,000 mcg Documented By: GARDENIA Dextrose (Dextrose 50 % 25 Gm/50 Ml Syringe) 25 gm IVPUSH Q15M PRN; Protocol PRN Reason: per Hypoglycemia Standing Ord. Furosemide (Furosemide 40 Mg/4 Ml Vial) 40 mg IVPUSH DAILY [facility]; Protocol Furosemide (Furosemide 40 Mg/4 Ml Vial) 40 mg IVPUSH DAILY@0900 [facility]; Protocol Glucose (Glucose Gel 15 Gm Gel..Gram.) 15 gm PO Q15M PRN; Protocol PRN Reason: per Hypoglycemia Standing Ord. Insulin Glargine (Insulin Glargine,Hum.Rec.Anlog 100 Unit/Ml 10 Ml Vial) 24 unit SUBCUT BEDTIME [facility] Last Admin: 06/09/23 22:08 Dose: 24 unit Documented By: TIFFANY Insulin Human Lispro (Insulin Lispro 100 Unit/Ml 3 Ml Vial) 0 unit SUBCUT QIDACHS [facility]; Protocol Last Admin: 06/10/23 07:42 Dose: Not Given Documented By: RADHA Non-Admin Reason: No Insulin Coverage Lactulose (Lactulose 20 Gm/30 Ml Solution) 20 gm PO TID [facility] Last Admin: 06/09/23 22:09 Dose: Not Given Documented By: TIFFANY Non-Admin Reason: Patient Refused Magnesium Oxide (Magnesium Oxide 400 Mg Tablet) 800 mg PO DAILY [facility] Last Admin: 06/09/23 08:54 Dose: 800 mg Documented By: GARDENIA Multivitamins/Vitamin C (Multivitamin Tablet) 1 tab PO DAILY [facility] Last Admin: 06/09/23 08:54 Dose: 1 tab Documented By: GARDENIA Non-Formulary Medication (Entecavir [Baraclude]) 1 tab PO DAILY [facility] Omeprazole (Omeprazole 20 Mg Capsule.) 20 mg PO BID@0630,1630 [facility] Last Admin: 06/10/23 05:31 Dose: 20 mg Documented By: TIFFANY Ondansetron HCl (Ondansetron Hcl 4 Mg/2 Ml Vial) 4 mg IVPUSH Q8H PRN PRN Reason: Nausea and Vomiting Pharmacy Consult (Consult Rx Perform Med Rec) 1 each MISCELLANE ONCE PRN PRN Reason: Consult order Rifaximin (Rifaximin 550 Mg Tablet) 550 mg PO BID [facility] Last Admin: 06/09/23 22:07 Dose: 550 mg Documented By: TIFFANY Sodium Chloride (0.9 % Sodium Chloride Flush 3 Ml Syringe) 3 ml IVFLUSH QSHIFT [facility] Last Admin: 06/09/23 22:11 Dose: Not Given Documented By: TIFFANY Non-Admin Reason: IV Running Tacrolimus (Tacrolimus 0.5 Mg Capsule) 0.5 mg PO DAILY@1700 [facility] Tacrolimus (Tacrolimus 1 Mg Capsule) 1 mg PO DAILY@0800 [facility] Labs 06/10/23 06:57 06/09/23 05:39 Labs: Laboratory Results - last 24 hr 06/09/23 06/09/23 06/09/23 11:12 16:11 20:50 MCV MCH MCHC RDW Plt Count MPV Absolute Nucleated RBC Nucleated RBC % (auto) PT INR POC Glucose 216 H 207 H 232 H Total Bilirubin Direct Bilirubin AST ALT Alkaline Phosphatase Total Creatine Kinase Total Protein Albumin Procalcitonin 06/10/23 06/10/23 06/10/23 05:45 05:45 06:57 MCV 84.0 MCH 28.0 MCHC 33.3 RDW 22.8 H Plt Count TNP MPV Not Reportable Absolute Nucleated RBC 0.000 Nucleated RBC % (auto) 0.0 PT 22.9 H INR 1.9 H POC Glucose Total Bilirubin 8.1 H Direct Bilirubin 2.5 H AST 483 H ALT 396 H Alkaline Phosphatase 184 H Total Creatine Kinase 2665 H Total Protein 4.0 L Albumin 1.4 L Procalcitonin 0.29 06/10/23 07:36 MCV MCH MCHC RDW Plt Count MPV Absolute Nucleated RBC Nucleated RBC % (auto) PT INR POC Glucose 85 Total Bilirubin Direct Bilirubin AST ALT Alkaline Phosphatase Total Creatine Kinase Total Protein Albumin Procalcitonin Impressions Chest X-Ray 06/09/23 17:34 IMPRESSION: Progressive right-sided pleural effusion. Persistent right basilar parenchymal disease. Consider CT follow-up to further characterize. 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, hx TIPS presenting with 2 wk of dark-colored urine, muscle aches, and weakness admitted for rhabdomyolysis rhabdomyolysis, non-traumatic - possibly due to statin?boosted by tacrolimus - CPK improved - Nephrology following; d/c IV fluids - accepted by [facility], awaiting bed for past 5d, per transfer center today still awaiting bed anasarca - due to fluid resuscitation + hypoalbuminemia - furosemide 40 mg IV daily - fluid restriction 1.5 L/d R pleural effusion - CT chest - diurese as above transaminitis - LFTs improving, likely some component cross-reactivity with skeletal muscle but also has cirrhosis of transplanted liver LEBRON - resolved with IV hydration pancytopenia - due to cirrhosis hx hepatic encephalopathy - continue lactulose + rifaximin DM2 - basal-bolus insulin liver transplant - tacrolimus level low, increased dose to 1 mg qam + 0.5 mg qpm per Nephrology HBV, chronic - entecavir hx APLAS - off AC due to varices and loss of anticardiolipin Ab VTE ppx - SCDs dispo - awaiting transfer to [facility] Time Spent With Patient Time: Total time managing care of this patient today __40__ minutes. Quality Stroke Does the patient have a stroke diagnosis?: No VTE Prior VTE?: No VTE Risk Level:: Medical - moderate - high VTE Device Contraindication: Treatment Not Indicated VTE Drug Contraindication: N/A - Med Ordered
[2023-06-10] MEDS: Lactulose 20 GM/30 ML SOLUTION PO (08:55)
[2023-06-10] MEDS: Furosemide 40 MG/4 ML VIAL IVPUSH ×2 (08:56→18:14)
[2023-06-10] MEDS: Magnesium Oxide 400 MG TABLET 800 MG PO (08:57)
[2023-06-10] MEDS: Multivitamin TABLET 1 TAB PO (08:58)
[2023-06-10] MEDS: rifAXIMin 550 MG TABLET PO ×2 (08:58→20:47)
[2023-06-10] MEDS: Cyanocobalamin (Vitamin B-12) 1,000 MCG TABLET 1000 MCG PO (08:58)
[2023-06-10] MEDS: Tacrolimus 1 MG CAPSULE PO (09:01)
[2023-06-10 09:33] LABS: Anion Gap 13 (12-20); Blood Urea Nitrogen 21 mg/dL (9-16); Calcium 8.3 mg/dL (8.4-10.2); Carbon Dioxide 22 mmol/L (22-29); Chloride 107 mmol/L (96-108); Creatinine Clr Calc Pharmacy 79.4; Estimated Glomerular Filt Rate > 60; Glucose Random 103 mg/dL (60-115); Potassium 3.7 mmol/L (3.3-5.1); Sodium 138 mmol/L (135-145)
--- NOTE | 2023-06-10 11:20 | PM.PNNEP ---
Subjective Subjective Date of Service: 06/10/23 Interval history: seen and examined c/o swelling denies CP/SOB Physical Exam Vital Signs: Vital Signs: Last Vital Signs Temp 97.3 F 06/10/23 07:32 Pulse 97 06/10/23 07:32 Resp 17 06/10/23 07:32 BP 132/64 06/10/23 07:32 Pulse Ox 94 06/10/23 07:32 O2 Del Method Room Air 06/10/23 07:32 BMI result Body Mass Index 24.9 Const: General: alert and awake HEENT: Head: Yes normocephalic and Yes atraumatic Neck: Neck: Yes supple Resp: Auscultation: diminished lung sounds Cardio: Heart sounds: S1 normal heart sound present and S2 normal heart sound present GI: Palpation (GI): Soft to palpation and nontender Extrem: Right upper extremity: edema Objective Data Labs 06/10/23 06:57 06/10/23 05:45 Labs: Laboratory Results - last 24 hr 06/09/23 06/09/23 06/10/23 16:11 20:50 05:45 WBC RBC Hgb Hct MCV MCH MCHC RDW Plt Count MPV Absolute Nucleated RBC Nucleated RBC % (auto) PT 22.9 H INR 1.9 H Sodium Potassium Chloride Carbon Dioxide Anion Gap BUN Creatinine Estim Creat Clear Calc Estimated GFR POC Glucose 207 H 232 H Random Glucose Calcium Total Bilirubin Direct Bilirubin AST ALT Alkaline Phosphatase Total Creatine Kinase Total Protein Albumin Procalcitonin 06/10/23 06/10/23 06/10/23 05:45 06:57 07:36 WBC 4.9 RBC 3.82 L Hgb 10.7 L Hct 32.1 L MCV 84.0 MCH 28.0 MCHC 33.3 RDW 22.8 H Plt Count TNP MPV Not Reportable Absolute Nucleated RBC 0.000 Nucleated RBC % (auto) 0.0 PT INR Sodium 138 Potassium 3.7 Chloride 107 Carbon Dioxide 22 Anion Gap 13 BUN 21 H Creatinine 0.72 Estim Creat Clear Calc 79.4 Estimated GFR > 60 POC Glucose 85 Random Glucose 103 Calcium 8.3 L Total Bilirubin 8.1 H Direct Bilirubin 2.5 H AST 483 H ALT 396 H Alkaline Phosphatase 184 H Total Creatine Kinase 2665 H Total Protein 4.0 L Albumin 1.4 L Procalcitonin 0.29 Microbiology Microbiology Results: Microbiology 06/03/23 Unknown Urine clean catch - Urine myles top Urine Culture - Final Procedures Date of Service Date of Service: 06/10/23 Assessment & Plan Assessment and plan (1) Rhabdomyolysis: Status: Acute (2) Metabolic alkalosis: Status: Acute (3) Liver transplant recipient: Status: Acute Plan cpk trending down low tacrolimus level, not at goal kidney function normal h/o liver transplant rhabdomyolysis due to ? tacrolimus and statins w/u for myositis, polymyositis etc low albumin and anasarca REC increase furosemide 40 mg IV bid c/w tacrolimus 1 mg in am and 0.5 mg in pm follow tacrolimus level fluid restriction 1.5 L follow CPK follow kidney function and electrolytes Time Spent With Patient Time: Total time managing care of this patient today ____ minutes. Progress Note: Quality Stroke Does the patient have a stroke diagnosis?: No
[2023-06-10 11:34] LABS: Glucose, Whole Blood 191 mg/dL (60-115)
[2023-06-10] MEDS: Insulin Lispro 100 UNIT/ML 3 ML VIAL SUBCUT ×3 (11:46→20:47)
[2023-06-10 15:34] VITALS: BP 133/66; PULSE 95; RESP 20; TEMP 36.8; O2SAT 93
[2023-06-10 16:14] LABS: Glucose, Whole Blood 180 mg/dL (60-115)
[2023-06-10] MEDS: 0.9 % Sodium Chloride Flush 3 ML SYRINGE IVFLUSH ×3 (16:48→20:49)
[2023-06-10] MEDS: Tacrolimus 0.5 MG CAPSULE PO (16:48)
[2023-06-10] MEDS: Acetaminophen 325 MG TABLET PO (18:18)
[2023-06-10 20:00] VITALS: BP 138/64; PULSE 100; RESP 20; TEMP 36.8; O2SAT 95
[2023-06-10 20:20] LABS: Glucose, Whole Blood 222 mg/dL (60-115)
[2023-06-10] MEDS: Insulin Glargine,Hum.rec.anlog 100 UNIT/ML 10 ML VIAL 24 UNIT SUBCUT (20:47)
[2023-06-11 04:00] VITALS: BP 130/61; PULSE 96; RESP 18; TEMP 36.4; O2SAT 95
[2023-06-11] MEDS: Omeprazole 20 MG CAPSULE.DR PO ×2 (05:48→15:57)
[2023-06-11 05:53] LABS: Alanine Aminotransferase 359 U/L (0-40); Albumin Level 1.5 g/dL (3.5-5.0); Alkaline Phosphatase 164 U/L (39-117); Anion Gap 7 (12-20); Aspartate Amino Transferase 369 U/L (5-37); Bilirubin Total 8.1 mg/dL (0.0-1.0); Blood Urea Nitrogen 24 mg/dL (9-16); Calcium 8.6 mg/dL (8.4-10.2); Carbon Dioxide 30 mmol/L (22-29); Chloride 104 mmol/L (96-108); Creatinine Clr Calc Pharmacy 69.7; Estimated Glomerular Filt Rate > 60; Glucose Random 132 mg/dL (60-115); Potassium 3.4 mmol/L (3.3-5.1); Sodium 138 mmol/L (135-145); Total Protein 3.9 g/dL (6.5-8.0)
[2023-06-11 07:36] VITALS: BP 130/61; PULSE 99; RESP 17; TEMP 36.6; O2SAT 95
[2023-06-11 07:36] LABS: Glucose, Whole Blood 126 mg/dL (60-115)
[2023-06-11] MEDS: Furosemide 40 MG/4 ML VIAL IVPUSH ×2 (08:58→17:39)
[2023-06-11] MEDS: Cyanocobalamin (Vitamin B-12) 1,000 MCG TABLET 1000 MCG PO (08:58)
[2023-06-11] MEDS: Multivitamin TABLET 1 TAB PO (08:58)
[2023-06-11] MEDS: Tacrolimus 1 MG CAPSULE PO ×2 (08:58→16:17)
[2023-06-11] MEDS: rifAXIMin 550 MG TABLET PO ×2 (08:58→21:21)
[2023-06-11] MEDS: Magnesium Oxide 400 MG TABLET 800 MG PO (08:58)
[2023-06-11] MEDS: Lactulose 20 GM/30 ML SOLUTION PO (08:58)
[2023-06-11] MEDS: 0.9 % Sodium Chloride Flush 3 ML SYRINGE IVFLUSH ×3 (08:59→23:55)
--- NOTE | 2023-06-11 09:25 | P.PNIM_ITS ---
Subjective Subjective Date of Service: 06/11/23 Interval History: This history was taken in [place] from the patient. Muscle aches resolving Still quite swollen but slowly improving No dyspnea or cough Not hypoxic Review of Systems Review of Systems: Yes all other systems are reviewed and are negative Physical Exam Vital Signs: Vital Signs: Last Vital Signs Temp 97.9 F 06/11/23 07:36 Pulse 99 06/11/23 07:36 Resp 17 06/11/23 07:36 BP 130/61 06/11/23 07:36 Pulse Ox 95 06/11/23 07:36 O2 Del Method Room Air 06/11/23 07:36 BMI result Body Mass Index 24.9 Gen: in no acute distress HEENT: sclera anicteric, moist mucus membranes Neck: supple Lungs: diminished R side Heart: regular rate and rhythm, no murmurs Abd: soft, non-tender, non-distended Ext: 2+ BLE edema, scrotal swelling Skin: warm/well-perfused, multiple bruises Neuro: alert and oriented x3, no focal findings Psych: appropriate affect Objective Data Active Medications Acetaminophen (Acetaminophen 325 Mg Tablet) 325 mg PO Q4H PRN PRN Reason: severe pain Last Admin: 06/10/23 18:18 Dose: 325 mg Documented By: DEANNA Cyanocobalamin (Cyanocobalamin (Vitamin B-12) 1,000 Mcg Tablet) 1,000 mcg PO DAILY [facility] Last Admin: 06/11/23 08:58 Dose: 1,000 mcg Documented By: RADHA Dextrose (Dextrose 50 % 25 Gm/50 Ml Syringe) 25 gm IVPUSH Q15M PRN; Protocol PRN Reason: per Hypoglycemia Standing Ord. Furosemide (Furosemide 40 Mg/4 Ml Vial) 40 mg IVPUSH BID@0900,1800 [facility]; Protocol Last Admin: 06/11/23 08:58 Dose: 40 mg Documented By: RADHA Glucose (Glucose Gel 15 Gm Gel..Gram.) 15 gm PO Q15M PRN; Protocol PRN Reason: per Hypoglycemia Standing Ord. Insulin Glargine (Insulin Glargine,Hum.Rec.Anlog 100 Unit/Ml 10 Ml Vial) 24 unit SUBCUT BEDTIME [facility] Last Admin: 06/10/23 20:47 Dose: 24 unit Documented By: DEANNA Insulin Human Lispro (Insulin Lispro 100 Unit/Ml 3 Ml Vial) 0 unit SUBCUT QIDACHS [facility]; Protocol Last Admin: 06/11/23 07:31 Dose: Not Given Documented By: RADHA Non-Admin Reason: No Insulin Coverage Lactulose (Lactulose 20 Gm/30 Ml Solution) 20 gm PO TID [facility] Last Admin: 06/11/23 08:58 Dose: 20 gm Documented By: RADHA Magnesium Oxide (Magnesium Oxide 400 Mg Tablet) 800 mg PO DAILY [facility] Last Admin: 06/11/23 08:58 Dose: 800 mg Documented By: RADHA Multivitamins/Vitamin C (Multivitamin Tablet) 1 tab PO DAILY [facility] Last Admin: 06/11/23 08:58 Dose: 1 tab Documented By: RADHA Pt Own Med ( Entecavir [Baraclude ] 0.5 Mg Tablet) 1 tab PO DAILY [facility] Last Admin: 06/11/23 08:53 Dose: 1 tab Documented By: RADHA Omeprazole (Omeprazole 20 Mg Capsule.) 20 mg PO BID@0630,1630 [facility] Last Admin: 06/11/23 05:48 Dose: 20 mg Documented By: DEANNA Ondansetron HCl (Ondansetron Hcl 4 Mg/2 Ml Vial) 4 mg IVPUSH Q8H PRN PRN Reason: Nausea and Vomiting Pharmacy Consult (Consult Rx Perform Med Rec) 1 each MISCELLANE ONCE PRN PRN Reason: Consult order Rifaximin (Rifaximin 550 Mg Tablet) 550 mg PO BID [facility] Last Admin: 06/11/23 08:58 Dose: 550 mg Documented By: RADHA Sodium Chloride (0.9 % Sodium Chloride Flush 3 Ml Syringe) 3 ml IVFLUSH QSHIFT [facility] Last Admin: 06/11/23 08:59 Dose: 3 ml Documented By: RADHA Tacrolimus (Tacrolimus 0.5 Mg Capsule) 0.5 mg PO DAILY@1700 [facility] Last Admin: 06/10/23 16:48 Dose: 0.5 mg Documented By: DEANNA Tacrolimus (Tacrolimus 1 Mg Capsule) 1 mg PO DAILY@0800 [facility] Last Admin: 06/11/23 08:58 Dose: 1 mg Documented By: RADHA Zinc Acetate/Diphenhydramine (Diphenhydramine Hcl 2 % Cream 28 Gm Tube) 1 appl TOPICAL QID PRN; Protocol PRN Reason: itching Labs 06/10/23 06:57 06/11/23 05:06 Labs: Laboratory Results - last 24 hr 06/10/23 06/10/23 06/10/23 05:45 11:25 16:10 Anion Gap 13 Estim Creat Clear Calc 79.4 Estimated GFR > 60 POC Glucose 191 H 180 H Random Glucose 103 Calcium 8.3 L Total Bilirubin AST ALT Alkaline Phosphatase Total Creatine Kinase Total Protein Albumin 06/10/23 06/11/23 06/11/23 19:26 05:06 07:23 Anion Gap 7 L Estim Creat Clear Calc 69.7 Estimated GFR > 60 POC Glucose 222 H 126 H Random Glucose 132 H Calcium 8.6 Total Bilirubin 8.1 H AST 369 H ALT 359 H Alkaline Phosphatase 164 H Total Creatine Kinase 1638 H Total Protein 3.9 L Albumin 1.[address] 06/10/23 09:33 IMPRESSION: New large left pleural effusion. Complex loculated right pleural effusion adjacent to the right lower lobe and increasing loculated more simple appearing small right pleural effusion superiorly. Probable developing round atelectasis in the right lower lobe. Increasing right lower lobe volume loss. Small to moderate pericardial effusion. Extensive postsurgical changes in the abdomen, cirrhosis and splenomegaly. Fleischner guidelines were followed. 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, hx TIPS presenting with 2 wk of dark-colored urine, muscle aches, and weakness admitted for rhabdomyolysis rhabdomyolysis, non-traumatic - possibly due to statin?boosted by tacrolimus - CPK improving - Nephrology following; d/c'ed IV fluids 06/10 - accepted by [facility], awaiting bed for past 6d anasarca - due to fluid resuscitation + hypoalbuminemia - continue furosemide 40 mg IV daily - fluid restriction 1.5 L/d B pleural effusion - R effusion is loculated and chronic dating back to 2015 - L effusion is new, suspect due to hypoalbuminemia/volume overload - Pulm consulted, no intervention recommended at this point as pt is relatively asymptomatic transaminitis - LFTs improving, likely some component cross-reactivity with skeletal muscle but also has cirrhosis of transplanted liver LEBRON - resolved with IV hydration pancytopenia - due to cirrhosis hx hepatic encephalopathy - continue lactulose + rifaximin DM2 - basal-bolus insulin liver transplant - tacrolimus level low, so increased dose to 1 mg qam + 0.5 mg qpm per Ne phrology HBV, chronic - entecavir hx APLAS - off AC due to varices and loss of anticardiolipin Ab VTE ppx - SCDs dispo - awaiting transfer to [facility] Time Spent With Patient Time: Total time managing care of this patient today _40___ minutes. Quality Stroke Does the patient have a stroke diagnosis?: No VTE Prior VTE?: No VTE Risk Level:: Medical - moderate - high VTE Device Contraindication: Treatment Not Indicated VTE Drug Contraindication: N/A - Med Ordered
--- NOTE | 2023-06-11 09:54 | P.CONPL_ITS ---
History of Present Illness History of Present Illness Consult date: 06/11/23 Requesting physician: Vik Yeager Chief complaint: Bilateral pleural effusions Narrative: 73-year-old gentleman with underlying history of hepatitis-C cirrhosis status post liver transplant in 2010, status post TIPS admitted on 06/02/2023 with weakness, jaundice, myalgias secondary to failing liver transplant. Patient has been accepted to [facility], however no bed is available at this time. Further workup demonstrated large left-sided and loculated complex small right-sided pleural effusions. Pulmonary evaluation was requested. Patient denies any pulmonary related concerns or complaints, particularly dyspnea. Review of Systems 2 Constitutional: Constitutional: Denies daytime sleepiness, Denies excessive sweating, Reports fatigue, Denies fever(s), Reports lethargy, Reports malaise, Denies night sweats, Denies snoring and Denies weight loss Eyes: Eyes: Denies blurry vision and Denies itchy eyes ENT: Denies nasal congestion, Denies post nasal drip, Denies sinus pain, Denies sinus pressure and Denies other ( Thrush) Cardiovascular: Cardiovascular: Denies chest pain, Denies pedal edema, Denies dyspnea, Denies orthopnea and Denies paroxysmal nocturnal dyspnea Respiratory: Respiratory: Denies cough, Denies hemoptysis, Denies excessive phlegm production, Denies dyspnea, Denies snoring and Denies wheezing Gastrointestinal: Gastrointestinal: Denies abdominal pain, Denies heartburn and Reports other ( Abdominal swelling, jaundice) Musculoskeletal: Musculoskeletal: Denies myalgias, Denies arthralgias and Denies joint swelling Integumentary/Breasts: Skin/Breast: Denies rash Neurologic: Denies memory loss and Denies seizure-like activity Psychiatric: Psychiatric: Denies abnormal sleep pattern, Denies anxiety and Denies memory loss Endocrine: Endocrine: Denies excessive sweating, Reports fatigue and Denies heat intolerance Hematologic/Lymphatic: Hematologic/Lymphatic: Denies easy bruising Allergic/Immunologic: Allergic/Immunologic: Denies itchy eyes, Denies seasonal rhinorrhea and Denies wheezing PMFSH Past Medical History Medical History Diabetes H/O pleural effusion H/O: CVA (cerebrovascular accident) Hepatitis C HTN (hypertension) Nephrolithiasis Family History Family History Father Prostate cancer Mother Diabetes HTN (hypertension) Surgical History Surgical History H/O hernia repair History of liver transplant History of surgery on arm Hx of colonoscopy Social History Social History Household Members: Spouse Housing: House Are you a primary director long term care to a significant other at home: No Do you presently have visiting nurse or other home services: No Alcohol intake: never Patient Tobacco Use Status: Never used Tobacco service: No Current occupational status: employed Meds Allergies Allergy/AdvReac Type Severity Reaction Status Date / Time lisinopril AdvReac Unknown cough Verified 01/02/23 15:34 Active Medications: Current Medications Acetaminophen (Acetaminophen 325 Mg Tablet) 325 mg PO Q4H PRN PRN Reason: severe pain Last Admin: 06/10/23 18:18 Dose: 325 mg Cyanocobalamin (Cyanocobalamin (Vitamin B-12) 1,000 Mcg Tablet) 1,000 mcg PO DAILY [facility] Last Admin: 06/11/23 08:58 Dose: 1,000 mcg Dextrose (Dextrose 50 % 25 Gm/50 Ml Syringe) 25 gm IVPUSH Q15M PRN; Protocol PRN Reason: per Hypoglycemia Standing Ord. Furosemide (Furosemide 40 Mg/4 Ml Vial) 40 mg IVPUSH BID@0900,1800 [facility]; Protocol Last Admin: 06/11/23 08:58 Dose: 40 mg Glucose (Glucose Gel 15 Gm Gel..Gram.) 15 gm PO Q15M PRN; Protocol PRN Reason: per Hypoglycemia Standing Ord. Insulin Glargine (Insulin Glargine,Hum.Rec.Anlog 100 Unit/Ml 10 Ml Vial) 24 unit SUBCUT BEDTIME [facility] Last Admin: 06/10/23 20:47 Dose: 24 unit Insulin Human Lispro (Insulin Lispro 100 Unit/Ml 3 Ml Vial) 0 unit SUBCUT QIDACHS [facility]; Protocol Last Admin: 06/11/23 07:31 Dose: Not Given Lactulose (Lactulose 20 Gm/30 Ml Solution) 20 gm PO TID [facility] Last Admin: 06/11/23 08:58 Dose: 20 gm Magnesium Oxide (Magnesium Oxide 400 Mg Tablet) 800 mg PO DAILY [facility] Last Admin: 06/11/23 08:58 Dose: 800 mg Multivitamins/Vitamin C (Multivitamin Tablet) 1 tab PO DAILY [facility] Last Admin: 06/11/23 08:58 Dose: 1 tab Pt Own Med ( Entecavir [Baraclude ] 0.5 Mg Tablet) 1 tab PO DAILY [facility] Last Admin: 06/11/23 08:53 Dose: 1 tab Omeprazole (Omeprazole 20 Mg Capsule.Dr) 20 mg PO BID@0630,1630 [facility] Last Admin: 06/11/23 05:48 Dose: 20 mg Ondansetron HCl (Ondansetron Hcl 4 Mg/2 Ml Vial) 4 mg IVPUSH Q8H PRN PRN Reason: Nausea and Vomiting Pharmacy Consult (Consult Rx Perform Med Rec) 1 each MISCELLANE ONCE PRN PRN Reason: Consult order Rifaximin (Rifaximin 550 Mg Tablet) 550 mg PO BID [facility] Last Admin: 06/11/23 08:58 Dose: 550 mg Sodium Chloride (0.9 % Sodium Chloride Flush 3 Ml Syringe) 3 ml IVFLUSH QSHIFT [facility] Last Admin: 06/11/23 08:59 Dose: 3 ml Tacrolimus (Tacrolimus 0.5 Mg Capsule) 0.5 mg PO DAILY@1700 [facility] Last Admin: 06/10/23 16:48 Dose: 0.5 mg Tacrolimus (Tacrolimus 1 Mg Capsule) 1 mg PO DAILY@0800 [facility] Last Admin: 06/11/23 08:58 Dose: 1 mg Zinc Acetate/Diphenhydramine (Diphenhydramine Hcl 2 % Cream 28 Gm Tube) 1 appl TOPICAL QID PRN; Protocol PRN Reason: itching Home Medications Medication Instructions Recorded Confirmed Last Taken Type entecavir 0.5 mg tablet (Baraclude) 1 tab PO DAILY 12/22/20 06/03/23 06/02/23 History magnesium oxide 800 mg PO DAILY 12/22/20 06/03/23 06/02/23 History cyanocobalamin (vitamin B-12) 1,000 mcg PO DAILY 06/03/23 06/03/23 06/02/23 History 1,000 mcg tablet insulin aspart U-100 100 unit/mL See Protocol subcut TID 06/03/23 06/03/23 06/02/23 History (3 mL) subcutaneous pen (Novolog FlexPen U-100 Insulin aspart) lactulose 10 gram/15 mL oral 30 ml PO TID 06/03/23 06/03/23 06/02/23 History solution multivitamin 1 tab PO DAILY 06/03/23 06/03/23 06/02/23 History pantoprazole 40 mg tablet,delayed 40 mg PO BID 06/03/23 06/03/23 06/02/23 History release rifaximin 550 mg tablet (Xifaxan) 550 mg PO BID 06/03/23 06/03/23 06/02/23 History Physical Exam Vital Signs: Vital Signs: Last Vital Signs Temp 97.9 F 06/11/23 07:36 Pulse 99 06/11/23 07:36 Resp 17 06/11/23 07:36 BP 130/61 06/11/23 07:36 Pulse Ox 95 06/11/23 07:36 O2 Del Method Room Air 06/11/23 07:36 BMI result Body Mass Index 24.9 Const: General: no acute distress, alert and other ( jaundiced) Nutritional Appearance: not obese Orientation/consciousness: Other orientation findings ( oriented) HEENT: Head: Yes atraumatic Eyes: Sclerae: scleral abnormal ( icteric) EOM: EOMs intact bilaterally Neck: Neck: Yes supple Lymphatic: no lymphadenopathy noted Resp: Effort & Inspection: normal respiratory effort and no use of accessory muscles Auscultation: other ( bibasilar poor air movement left worse than right) Cardio: Rate: regular rate Rhythm: regular rhythm Heart sounds: no gallops, no murmurs and no rubs GI: Other: distended, soft Skin: General skin exam: other ( warm) Extrem: General: No clubbing, No cyanosis and Yes edema ( trace bilateral) Results Laboratory Findings 06/10/23 06:57 06/11/23 05:06 ABG, PT/INR, D-dimer: PT/INR, D-dimer PT 22.9 SEC (10.0-13.1) H 06/10/23 05:45 INR 1.9 (0.9-1.1) H 06/10/23 05:45 Abnormal lab findings: Abnormal Labs 06/02/23 06/02/23 06/02/23 22:24 22:24 22:24 WBC 2.8 L RBC 3.30 L Hgb 9.0 L Hct 27.0 L MCH RDW 21.3 H Plt Count 35 L Lymph % (Auto) 12.[address] [place] % (Auto) 13.1 H Lymph # (Auto) 0.3 L PT 23.0 H INR 2.0 H Sodium 132 L Chloride Carbon Dioxide 18 L Anion Gap BUN 27 H Creatinine 1.56 H POC Glucose Random Glucose 316 H Calcium Total Bilirubin 9.4 H Direct Bilirubin AST 840 H ALT 285 H Alkaline Phosphatase 199 H Total Creatine Kinase 00807 H Total Protein 5.2 L Albumin 2.0 L Urine Protein Urine Glucose (UA) Urine Blood Ur Leukocyte Esterase Urine RBC Tacrolimus 06/02/23 06/03/23 06/03/23 23:45 05:32 05:32 WBC 3.0 L RBC 3.46 L Hgb 9.3 L Hct 28.4 L MCH 26.9 L RDW 21.2 H Plt Count 36 L Lymph % (Auto) 13.[address] [place] % (Auto) Lymph # (Auto) 0.4 L PT INR Sodium Chloride 109 H Carbon Dioxide 18 L Anion Gap BUN 23 H Creatinine POC Glucose Random Glucose 197 H Calcium Total Bilirubin Direct Bilirubin AST ALT Alkaline Phosphatase Total Creatine Kinase Total Protein Albumin Urine Protein 300 (3+) H Urine Glucose (UA) 100 H Urine Blood Large (3+) H Ur Leukocyte Esterase Small (1+) H Urine RBC 3-5 H Tacrolimus 06/03/23 06/03/23 06/03/23 05:32 13:03 15:54 WBC RBC Hgb Hct MCH RDW Plt Count Lymph % (Auto) [place] % (Auto) Lymph # (Auto) PT INR Sodium Chloride Carbon Dioxide Anion Gap BUN Creatinine POC Glucose 248 H 234 H Random Glucose Calcium Total Bilirubin 8.7 H Direct Bilirubin 2.8 H AST 837 H ALT 287 H Alkaline Phosphatase 200 H Total Creatine Kinase 10723 H Total Protein 4.9 L Albumin 1.9 L Urine Protein Urine Glucose (UA) Urine Blood Ur Leukocyte Esterase Urine RBC Tacrolimus 06/03/23 06/03/23 06/04/23 20:05 23:29 05:30 WBC 4.3 L RBC 3.80 L Hgb 10.0 L Hct 30.6 L MCH 26.3 L RDW 21.0 H Plt Count Lymph % (Auto) [place] % (Auto) Lymph # (Auto) PT INR Sodium 134 L Chloride Carbon Dioxide 21 L Anion Gap BUN 20 H Creatinine POC Glucose 279 H Random Glucose 298 H Calcium 8.3 L Total Bilirubin 9.7 H Direct Bilirubin AST 863 H ALT 316 H Alkaline Phosphatase 188 H Total Creatine Kinase Total Protein 4.8 L Albumin 1.8 L Urine Protein Urine Glucose (UA) Urine Blood Ur Leukocyte Esterase Urine RBC Tacrolimus 06/04/23 06/04/23 06/04/23 05:30 05:30 07:07 WBC RBC Hgb Hct MCH RDW Plt Count Lymph % (Auto) [place] % (Auto) Lymph # (Auto) PT 23.2 H INR 2.0 H Sodium Chloride Carbon Dioxide 20 L Anion Gap BUN 19 H Creatinine POC Glucose 190 H Random Glucose 220 H Calcium 8.3 L Total Bilirubin 10.5 H Direct Bilirubin AST 893 H ALT 331 H Alkaline Phosphatase 182 H Total Creatine Kinase 46091 H Total Protein 4.7 L Albumin 1.8 L Urine Protein Urine Glucose (UA) Urine Blood Ur Leukocyte Esterase Urine RBC Tacrolimus 06/04/23 06/04/23 06/04/23 11:24 16:10 20:25 WBC RBC Hgb Hct MCH RDW Plt Count Lymph % (Auto) [place] % (Auto) Lymph # (Auto) PT INR Sodium Chloride Carbon Dioxide Anion Gap BUN Creatinine POC Glucose 217 H 301 H 316 H Random Glucose Calcium Total Bilirubin Direct Bilirubin AST ALT Alkaline Phosphatase Total Creatine Kinase Total Protein Albumin Urine Protein Urine Glucose (UA) Urine Blood Ur Leukocyte Esterase Urine RBC Tacrolimus 06/05/23 06/05/23 06/05/23 07:08 09:14 11:37 WBC RBC Hgb Hct MCH RDW Plt Count Lymph % (Auto) [place] % (Auto) Lymph # (Auto) PT INR Sodium 133 L Chloride Carbon Dioxide Anion Gap BUN Creatinine POC Glucose 272 H 387 H* Random Glucose 374 H* Calcium Total Bilirubin Direct Bilirubin AST ALT Alkaline Phosphatase Total Creatine Kinase 36708 H Total Protein Albumin Urine Protein Urine Glucose (UA) Urine Blood Ur Leukocyte Esterase Urine RBC Tacrolimus 06/05/23 06/05/23 06/05/23 15:50 20:57 21:41 WBC RBC Hgb Hct MCH RDW Plt Count Lymph % (Auto) [place] % (Auto) Lymph # (Auto) PT INR Sodium 133 L Chloride Carbon Dioxide 31 H Anion Gap 9 L BUN Creatinine POC Glucose 298 H 252 H Random Glucose Calcium Total Bilirubin Direct Bilirubin AST ALT Alkaline Phosphatase Total Creatine Kinase > 82791 H Total Protein Albumin Urine Protein Urine Glucose (UA) Urine Blood Ur Leukocyte Esterase Urine RBC Tacrolimus 06/06/23 06/06/23 06/06/23 05:38 05:38 07:58 WBC RBC Hgb Hct MCH RDW Plt Count Lymph % (Auto) [place] % (Auto) Lymph # (Auto) PT INR Sodium 133 L Chloride 95 L Carbon Dioxide 32 H Anion Gap 10 L BUN 17 H Creatinine POC Glucose 255 H Random Glucose 256 H Calcium 8.3 L Total Bilirubin 10.5 H Direct Bilirubin 2.5 H AST 1247 H ALT 458 H Alkaline Phosphatase 155 H Total Creatine Kinase 81398 H Total Protein 4.2 L Albumin 1.6 L Urine Protein Urine Glucose (UA) Urine Blood Ur Leukocyte Esterase Urine RBC Tacrolimus 2.7 L 06/06/23 06/06/23 06/06/23 08:22 11:17 16:25 WBC RBC Hgb Hct MCH RDW Plt Count Lymph % (Auto) [place] % (Auto) Lymph # (Auto) PT INR Sodium Chloride Carbon Dioxide Anion Gap BUN Creatinine POC Glucose 311 H 291 H Random Glucose Calcium Total Bilirubin Direct Bilirubin AST ALT Alkaline Phosphatase Total Creatine Kinase Total Protein Albumin Urine Protein Urine Glucose (UA) Urine Blood Ur Leukocyte Esterase Urine RBC Tacrolimus 2.8 L 06/06/23 06/07/23 06/07/23 19:43 07:25 07:37 WBC RBC Hgb Hct MCH RDW Plt Count Lymph % (Auto) [place] % (Auto) Lymph # (Auto) PT INR Sodium 131 L Chloride Carbon Dioxide Anion Gap 10 L BUN 19 H Creatinine POC Glucose 257 H 188 H Random Glucose 217 H Calcium 8.3 L Total Bilirubin 9.7 H Direct Bilirubin 3.1 H AST 1183 H ALT 510 H Alkaline Phosphatase 158 H Total Creatine Kinase 06673 H Total Protein 4.2 L Albumin 1.6 L Urine Protein Urine Glucose (UA) Urine Blood Ur Leukocyte Esterase Urine RBC Tacrolimus 06/07/23 06/07/23 06/07/23 11:19 16:02 20:14 WBC RBC Hgb Hct MCH RDW Plt Count Lymph % (Auto) [place] % (Auto) Lymph # (Auto) PT INR Sodium Chloride Carbon Dioxide Anion Gap BUN Creatinine POC Glucose 326 H 236 H 182 H Random Glucose Calcium Total Bilirubin Direct Bilirubin AST ALT Alkaline Phosphatase Total Creatine Kinase Total Protein Albumin Urine Protein Urine Glucose (UA) Urine Blood Ur Leukocyte Esterase Urine RBC Tacrolimus 06/08/23 06/08/23 06/08/23 05:22 07:12 11:43 WBC RBC Hgb Hct MCH RDW Plt Count Lymph % (Auto) [place] % (Auto) Lymph # (Auto) PT INR Sodium Chloride Carbon Dioxide Anion Gap 11 L BUN 20 H Creatinine POC Glucose 123 H 189 H Random Glucose 130 H Calcium Total Bilirubin 9.1 H Direct Bilirubin 2.9 H AST 969 H ALT 497 H Alkaline Phosphatase 214 H Total Creatine Kinase 44680 H Total Protein 4.0 L Albumin 1.5 L Urine Protein Urine Glucose (UA) Urine Blood Ur Leukocyte Esterase Urine RBC Tacrolimus 06/08/23 06/08/23 06/09/23 15:40 20:22 05:39 WBC RBC Hgb Hct MCH RDW Plt Count Lymph % (Auto) [place] % (Auto) Lymph # (Auto) PT INR Sodium Chloride Carbon Dioxide Anion Gap 9 L BUN 23 H Creatinine POC Glucose 265 H 205 H Random Glucose 134 H Calcium Total Bilirubin 9.3 H Direct Bilirubin 2.9 H AST 737 H ALT 473 H Alkaline Phosphatase 186 H Total Creatine Kinase 6851 H Total Protein 4.0 L Albumin 1.5 L Urine Protein Urine Glucose (UA) Urine Blood Ur Leukocyte Esterase Urine RBC Tacrolimus 06/09/23 06/09/23 06/09/23 07:27 11:12 16:11 WBC RBC Hgb Hct MCH RDW Plt Count Lymph % (Auto) [place] % (Auto) Lymph # (Auto) PT INR Sodium Chloride Carbon Dioxide Anion Gap BUN Creatinine POC Glucose 129 H 216 H 207 H Random Glucose Calcium Total Bilirubin Direct Bilirubin AST ALT Alkaline Phosphatase Total Creatine Kinase Total Protein Albumin Urine Protein Urine Glucose (UA) Urine Blood Ur Leukocyte Esterase Urine RBC Tacrolimus 06/09/23 06/10/23 06/10/23 20:50 05:45 05:45 WBC RBC Hgb Hct MCH RDW Plt Count Lymph % (Auto) [place] % (Auto) Lymph # (Auto) PT 22.9 H INR 1.9 H Sodium Chloride Carbon Dioxide Anion Gap BUN 21 H Creatinine POC Glucose 232 H Random Glucose Calcium 8.3 L Total Bilirubin 8.1 H Direct Bilirubin 2.5 H AST 483 H ALT 396 H Alkaline Phosphatase 184 H Total Creatine Kinase 2665 H Total Protein 4.0 L Albumin 1.4 L Urine Protein Urine Glucose (UA) Urine Blood Ur Leukocyte Esterase Urine RBC Tacrolimus 06/10/23 06/10/23 06/10/23 06:57 11:25 16:10 WBC RBC 3.82 L Hgb 10.7 L Hct 32.1 L MCH RDW 22.8 H Plt Count Lymph % (Auto) [place] % (Auto) Lymph # (Auto) PT INR Sodium Chloride Carbon Dioxide Anion Gap BUN Creatinine POC Glucose 191 H 180 H Random Glucose Calcium Total Bilirubin Direct Bilirubin AST ALT Alkaline Phosphatase Total Creatine Kinase Total Protein Albumin Urine Protein Urine Glucose (UA) Urine Blood Ur Leukocyte Esterase Urine RBC Tacrolimus 06/10/23 06/11/23 06/11/23 19:26 05:06 07:23 WBC RBC Hgb Hct MCH RDW Plt Count Lymph % (Auto) [place] % (Auto) Lymph # (Auto) PT INR Sodium Chloride Carbon Dioxide 30 H Anion Gap 7 L BUN 24 H Creatinine POC Glucose 222 H 126 H Random Glucose 132 H Calcium Total Bilirubin 8.1 H Direct Bilirubin AST 369 H ALT 359 H Alkaline Phosphatase 164 H Total Creatine Kinase 1638 H Total Protein 3.9 L Albumin 1.5 L Urine Protein Urine Glucose (UA) Urine Blood Ur Leukocyte Esterase Urine RBC Tacrolimus Microbiology: Microbiology 06/03/23 Unknown Urine clean catch - Urine myles top Urine Culture - Final Assessment and Plan (1) Bilateral pleural effusion: Status: Acute (2) Hydrothorax: Status: Acute (3) Loculated pleural effusion: Status: Acute Plan Impression: 73-year-old gentleman status post liver transplant in 2010 for hepatitis-C cirrhosis, now admitted with 2 essentially transplant failure. 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 Loculated component is similar to patient's prior scan in 2017 and appears to be chronic, though now with more calcification. Patient has no symptoms attributable to his pleural effusions, particularly no dyspnea. Recommendations: At this time would recommend against thoracentesis of large left-sided will effusion, unless significantly symptomatic, as it appears to be related to hepatic hydrothorax and will reaccumulate shortly thereafter. Agree with ascites control with diuretics. Also at this time, will advise against decortication of underlying chronic right-sided loculated effusion, as clinical benefit, unless significantly symptomatic, would be out-weighted by significant risk of the procedure Time Spent With Patient Time: Total time managing care of this patient today ____ minutes. Procedures Date of Service Date of Service: 06/11/23
[2023-06-11 11:15] LABS: Tacrolimus Prograf 3.4 NG/ML ((5-20))
[2023-06-11 11:28] LABS: Glucose, Whole Blood 239 mg/dL (60-115)
[2023-06-11] MEDS: Insulin Lispro 100 UNIT/ML 3 ML VIAL SUBCUT ×3 (12:08→21:21)
--- NOTE | 2023-06-11 12:23 | PM.PNNEP ---
Subjective Subjective Date of Service: 06/11/23 Interval history: seen and examined daughter at bedside updated c/o swelling Physical Exam Vital Signs: Vital Signs: Last Vital Signs Temp 97.9 F 06/11/23 07:36 Pulse 99 06/11/23 07:36 Resp 17 06/11/23 07:36 BP 130/61 06/11/23 07:36 Pulse Ox 95 06/11/23 07:36 O2 Del Method Room Air 06/11/23 07:36 BMI result Body Mass Index 24.9 Const: General: alert and awake HEENT: Head: Yes normocephalic and Yes atraumatic Neck: Neck: Yes supple Resp: Auscultation: diminished lung sounds Cardio: Heart sounds: S1 normal heart sound present and S2 normal heart sound present GI: Palpation (GI): Soft to palpation and nontender Extrem: Right upper extremity: edema Objective Data Labs 06/10/23 06:57 06/11/23 05:06 Labs: Laboratory Results - last 24 hr 06/10/23 06/10/23 06/10/23 06:57 16:10 19:26 Sodium Potassium Chloride Carbon Dioxide Anion Gap BUN Creatinine Estim Creat Clear Calc Estimated GFR POC Glucose 180 H 222 H Random Glucose Calcium Total Bilirubin AST ALT Alkaline Phosphatase Total Creatine Kinase Total Protein Albumin Tacrolimus 3.4 L 06/11/23 06/11/23 06/11/23 05:06 : 11:14 Sodium 138 Potassium 3.4 Chloride 104 Carbon Dioxide 30 H Anion Gap 7 L BUN 24 H Creatinine 0.82 Estim Creat Clear Calc 69.7 Estimated GFR > 60 POC Glucose 126 H 239 H Random Glucose 132 H Calcium 8.6 Total Bilirubin 8.1 H AST 369 H ALT 359 H Alkaline Phosphatase 164 H Total Creatine Kinase 1638 H Total Protein 3.9 L Albumin 1.5 L Tacrolimus Microbiology Microbiology Results: Microbiology 06/03/23 Unknown Urine clean catch - Urine myles top Urine Culture - Final Procedures Date of Service Date of Service: 06/11/23 Assessment & Plan Assessment and plan (1) Rhabdomyolysis: Status: Acute (2) Metabolic alkalosis: Status: Acute (3) Liver transplant recipient: Status: Acute Plan tacrolimus level still low kidney function normal h/o liver transplant rhabdomyolysis due to ? tacrolimus and statins low albumin and anasarca REC c/w furosemide 40 mg IV bid increase tacrolimus 1 mg bid follow tacrolimus level fluid restriction 1.5 L follow CPK follow kidney function and electrolytes Time Spent With Patient Time: Total time managing care of this patient today ____ minutes. Progress Note: Quality Stroke Does the patient have a stroke diagnosis?: No
--- NOTE | 2023-06-11 13:58 | MHC.CM.PN ---
per rounds pt still waiting for a bed at [facility]
[2023-06-11 16:00] VITALS: BP 135/62; PULSE 94; RESP 20; TEMP 36.7; O2SAT 95
[2023-06-11 16:43] LABS: Glucose, Whole Blood 199 mg/dL (60-115)
[2023-06-11 19:51] VITALS: BP 121/60; PULSE 92; RESP 19; TEMP 36.7; O2SAT 95
--- NOTE | 2023-06-11 19:54 | PC.NURSE ---
Family is requesting to speak with ,RN answered some of the questions,Dr. Haile was notified
[2023-06-11 20:31] LABS: Glucose, Whole Blood 220 mg/dL (60-115)
[2023-06-11] MEDS: Insulin Glargine,Hum.rec.anlog 100 UNIT/ML 10 ML VIAL 24 UNIT SUBCUT (21:22)
[2023-06-11] MEDS: Acetaminophen 325 MG TABLET PO (22:06)
[2023-06-12 03:28] VITALS: BP 116/56; PULSE 89; RESP 14; TEMP 36.5; O2SAT 95
[2023-06-12] MEDS: Omeprazole 20 MG CAPSULE.DR PO ×2 (05:22→16:03)
[2023-06-12 06:14] LABS: Alanine Aminotransferase 334 U/L (0-40); Albumin Level 1.6 g/dL (3.5-5.0); Alkaline Phosphatase 177 U/L (39-117); Anion Gap 8 (12-20); Aspartate Amino Transferase 304 U/L (5-37); Bilirubin Total 8.3 mg/dL (0.0-1.0); Blood Urea Nitrogen 25 mg/dL (9-16); Calcium 8.6 mg/dL (8.4-10.2); Carbon Dioxide 30 mmol/L (22-29); Chloride 104 mmol/L (96-108); Creatinine Clr Calc Pharmacy 61.5; Estimated Glomerular Filt Rate > 60; Glucose Random 110 mg/dL (60-115); Potassium 3.4 mmol/L (3.3-5.1); Sodium 139 mmol/L (135-145); Total Protein 4.2 g/dL (6.5-8.0)
[2023-06-12 07:29] LABS: Glucose, Whole Blood 115 mg/dL (60-115)
[2023-06-12 08:00] VITALS: BP 145/67; PULSE 97; RESP 17; TEMP 36.6; O2SAT 95
[2023-06-12] MEDS: Furosemide 40 MG/4 ML VIAL IVPUSH (09:49)
[2023-06-12] MEDS: Cyanocobalamin (Vitamin B-12) 1,000 MCG TABLET 1000 MCG PO (09:49)
[2023-06-12] MEDS: Magnesium Oxide 400 MG TABLET 800 MG PO (09:49)
[2023-06-12] MEDS: rifAXIMin 550 MG TABLET PO ×2 (09:49→20:53)
[2023-06-12] MEDS: 0.9 % Sodium Chloride Flush 3 ML SYRINGE IVFLUSH ×3 (09:49→23:47)
[2023-06-12] MEDS: Multivitamin TABLET 1 TAB PO (09:49)
[2023-06-12] MEDS: Tacrolimus 1 MG CAPSULE PO ×2 (09:50→16:04)
--- NOTE | 2023-06-12 10:43 | PM.PNNEP ---
Subjective Subjective Date of Service: 06/12/23 Interval history: seen and examined swelling improving Physical Exam Vital Signs: Vital Signs: Last Vital Signs Temp 97.9 F 06/12/23 08:00 Pulse 97 06/12/23 08:00 Resp 17 06/12/23 08:00 BP 145/67 H 06/12/23 08:00 Pulse Ox 95 06/12/23 08:00 O2 Del Method Room Air 06/12/23 08:00 BMI result Body Mass Index 24.9 Const: General: alert and awake HEENT: Head: Yes normocephalic and Yes atraumatic Neck: Neck: Yes supple Resp: Auscultation: diminished lung sounds Cardio: Heart sounds: S1 normal heart sound present and S2 normal heart sound present GI: Palpation (GI): Soft to palpation and nontender Extrem: Right upper extremity: edema Objective Data Labs 06/10/23 06:57 06/12/23 05:23 Labs: Laboratory Results - last 24 hr 06/10/23 06/11/23 06/11/23 06:57 11:14 16:35 Sodium Potassium Chloride Carbon Dioxide Anion Gap BUN Creatinine Estim Creat Clear Calc Estimated GFR POC Glucose 239 H 199 H Random Glucose Calcium Total Bilirubin AST ALT Alkaline Phosphatase Total Creatine Kinase Total Protein Albumin Tacrolimus 3.4 L 06/11/23 06/12/23 06/12/23 20:18 05:23 07:23 Sodium 139 Potassium 3.4 Chloride 104 Carbon Dioxide 30 H Anion Gap 8 L BUN 25 H Creatinine 0.93 Estim Creat Clear Calc 61.5 Estimated GFR > 60 POC Glucose 220 H 115 Random Glucose 110 Calcium 8.6 Total Bilirubin 8.3 H AST 304 H ALT 334 H Alkaline Phosphatase 177 H Total Creatine Kinase 1099 H Total Protein 4.2 L Albumin 1.6 L Tacrolimus Microbiology Microbiology Results: Microbiology 06/03/23 Unknown Urine clean catch - Urine myles top Urine Culture - Final Procedures Date of Service Date of Service: 06/12/23 Assessment & Plan Assessment and plan (1) Rhabdomyolysis: Status: Acute (2) Metabolic alkalosis: Status: Acute (3) Liver transplant recipient: Status: Acute Plan tacrolimus level still low kidney function normal h/o liver transplant rhabdomyolysis due to ? tacrolimus and statins low albumin and anasarca REC increase furosemide 80 mg IV bid c/w tacrolimus 1 mg bid follow tacrolimus level fluid restriction 1.5 L follow kidney function and electrolytes Time Spent With Patient Time: Total time managing care of this patient today ____ minutes. Progress Note: Quality Stroke Does the patient have a stroke diagnosis?: No
--- NOTE | 2023-06-12 11:34 | HO.PM.IMPN ---
Subjective Subjective Date of Service: 06/12/23 Interval History: Complaining of generalized swelling more right upper extremity, denies shortness of breath, no chest pain no palpitations no lightheadedness, no dizziness tolerating diet no nausea no vomiting or diarrhea. Review of Systems All other system reviewed and negative Physical Exam Vital Signs: Vital Signs: Last Vital Signs Temp 97.9 F 06/12/23 08:00 Pulse 97 06/12/23 08:00 Resp 17 06/12/23 08:00 BP 145/67 H 06/12/23 08:00 Pulse Ox 95 06/12/23 08:00 O2 Del Method Room Air 06/12/23 08:00 BMI result Body Mass Index 24.9 Const: Other: Gen: in no acute distress HEENT: sclera anicteric, moist mucus membranes Neck: supple Lungs: Clear to auscultation diminished at bases Heart: regular rate and rhythm, no murmurs Abd: soft, non-tender, non-distended Ext: 2+ BLE edema, scrotal swelling Right upper extremity swelling greater than left, no redness, no warmth Skin: warm/well-perfused, multiple bruises Neuro: alert and oriented x3, no focal findings Psych: appropriate affect Objective Data Active Medications Acetaminophen (Acetaminophen 325 Mg Tablet) 325 mg PO Q4H PRN PRN Reason: severe pain Last Admin: 06/11/23 22:06 Dose: 325 mg Documented By: AUGUSTINA Cyanocobalamin (Cyanocobalamin (Vitamin B-12) 1,000 Mcg Tablet) 1,000 mcg PO DAILY [facility] Last Admin: 06/12/23 09:49 Dose: 1,000 mcg Documented By: FLORENCIO Dextrose (Dextrose 50 % 25 Gm/50 Ml Syringe) 25 gm IVPUSH Q15M PRN; Protocol PRN Reason: per Hypoglycemia Standing Ord. Furosemide (Furosemide 40 Mg/4 Ml Vial) 80 mg IVPUSH BID@0900,1800 [facility]; Protocol Glucose (Glucose Gel 15 Gm Gel..Gram.) 15 gm PO Q15M PRN; Protocol PRN Reason: per Hypoglycemia Standing Ord. Insulin Glargine (Insulin Glargine,Hum.Rec.Anlog 100 Unit/Ml 10 Ml Vial) 24 unit SUBCUT BEDTIME [facility] Last Admin: 06/11/23 21:22 Dose: 24 unit Documented By: AUGUSTINA Insulin Human Lispro (Insulin Lispro 100 Unit/Ml 3 Ml Vial) 0 unit SUBCUT QIDACHS [facility]; Protocol Last Admin: 06/12/23 08:11 Dose: Not Given Documented By: RADHA Non-Admin Reason: No Insulin Coverage Lactulose (Lactulose 20 Gm/30 Ml Solution) 20 gm PO TID [facility] Last Admin: 06/12/23 09:55 Dose: Not Given Documented By: FLORENCIO Non-Admin Reason: Patient Refused Magnesium Oxide (Magnesium Oxide 400 Mg Tablet) 800 mg PO DAILY [facility] Last Admin: 06/12/23 09:49 Dose: 800 mg Documented By: FLORENCIO Multivitamins/Vitamin C (Multivitamin Tablet) 1 tab PO DAILY [facility] Last Admin: 06/12/23 09:49 Dose: 1 tab Documented By: FLORENCIO Pt Own Med ( Entecavir [Baraclude ] 0.5 Mg Tablet) 1 tab PO DAILY [facility] Last Admin: 06/12/23 09:50 Dose: 1 tab Documented By: FLORENCIO Omeprazole (Omeprazole 20 Mg Capsule.Dr) 20 mg PO BID@0630,1630 [facility] Last Admin: 06/12/23 05:22 Dose: 20 mg Documented By: AMANDA Ondansetron HCl (Ondansetron Hcl 4 Mg/2 Ml Vial) 4 mg IVPUSH Q8H PRN PRN Reason: Nausea and Vomiting Pharmacy Consult (Consult Rx Perform Med Rec) 1 each MISCELLANE ONCE PRN PRN Reason: Consult order Rifaximin (Rifaximin 550 Mg Tablet) 550 mg PO BID [facility] Last Admin: 06/12/23 09:49 Dose: 550 mg Documented By: FLORENCIO Sodium Chloride (0.9 % Sodium Chloride Flush 3 Ml Syringe) 3 ml IVFLUSH QSHIFT [facility] Last Admin: 06/12/23 09:49 Dose: 3 ml Documented By: FLORENCIO Tacrolimus (Tacrolimus 1 Mg Capsule) 1 mg PO DAILY@0800 [facility] Last Admin: 06/12/23 09:50 Dose: 1 mg Documented By: FLORENCIO Tacrolimus (Tacrolimus 1 Mg Capsule) 1 mg PO DAILY@1700 [facility] Last Admin: 06/11/23 16:17 Dose: 1 mg Documented By: AUGUSTINA Zinc Acetate/Diphenhydramine (Diphenhydramine Hcl 2 % Cream 28 Gm Tube) 1 appl TOPICAL QID PRN; Protocol PRN Reason: itching Labs 06/10/23 06:57 06/12/23 05:23 Labs: Laboratory Results - last 24 hr 06/11/23 06/11/23 06/12/23 16:35 20:18 05:23 Anion Gap 8 L Estim Creat Clear Calc 61.5 Estimated GFR > 60 POC Glucose 199 H 220 H Random Glucose 110 Calcium 8.6 Total Bilirubin 8.3 H AST 304 H ALT 334 H Alkaline Phosphatase 177 H Total Creatine Kinase 1099 H Total Protein 4.2 L Albumin 1.6 L 06/12/23 07:23 Anion Gap Estim Creat Clear Calc Estimated GFR POC Glucose 115 Random Glucose Calcium Total Bilirubin AST ALT Alkaline Phosphatase Total Creatine Kinase Total Protein Albumin Assessment and Plan (1) Rhabdomyolysis: Status: Acute (2) Antiphospholipid antibody syndrome: Status: Inactive (3) Acute renal failure due to rhabdomyolysis: Status: Resolved Plan 73yo M with transplant of HBV+ liver in 2010, hx HCV cirrhosis, 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, hx TIPS presenting with 2 wk of dark-colored urine, muscle aches, and weakness admitted for rhabdomyolysis rhabdomyolysis, non-traumatic - possibly due to statin?boosted by tacrolimus - CPK down to 1099 - Nephrology following; d/c'ed IV fluids 06/10 - accepted by [facility], awaiting bed for past 7d anasarca - due to fluid resuscitation + hypoalbuminemia - continue furosemide 80 mg IV bid - fluid restriction 1.5 L/d, stable renal function B pleural effusion - R effusion is loculated and chronic dating back to 2016 - L effusion is new, suspect due to hypoalbuminemia/volume overload - Pulm consulted, no intervention recommended at this point as pt is relatively asymptomatic Rt upper extremity swelling will obtained ultrasound ruled out DVT. 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 Time Spent With Patient Time: Total time managing care of this patient today ____ minutes. Quality Stroke Does the patient have a stroke diagnosis?: No VTE Prior VTE?: No VTE Risk Level:: Medical - moderate - high VTE Device Contraindication: Treatment Not Indicated VTE Drug Contraindication: N/A - Med Ordered
[2023-06-12 11:37] LABS: Glucose, Whole Blood 218 mg/dL (60-115)
[2023-06-12] MEDS: Insulin Lispro 100 UNIT/ML 3 ML VIAL SUBCUT ×3 (11:55→20:52)
[2023-06-12 15:54] VITALS: BP 132/62; PULSE 89; RESP 20; TEMP 36.4; O2SAT 96
[2023-06-12 16:23] LABS: Glucose, Whole Blood 188 mg/dL (60-115)
[2023-06-12] MEDS: Furosemide 40 MG/4 ML VIAL 80 MG IVPUSH (17:19)
--- NOTE | 2023-06-12 17:31 | P.PNIM_ITS ---
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 Review of Systems All other system reviewed and negative Physical Exam Vital Signs: Vital Signs: Last Vital Signs Temp 97.6 F 06/12/23 15:54 Pulse 89 06/12/23 15:54 Resp 20 06/12/23 15:54 BP 132/62 06/12/23 15:54 Pulse Ox 96 06/12/23 15:54 O2 Del Method Room Air 06/12/23 15:54 BMI result Body Mass Index 24.9 Objective Data Active Medications Acetaminophen (Acetaminophen 325 Mg Tablet) 325 mg PO Q4H PRN PRN Reason: severe pain Last Admin: 06/11/23 22:06 Dose: 325 mg Documented By: AUGUSTINA Cyanocobalamin (Cyanocobalamin (Vitamin B-12) 1,000 Mcg Tablet) 1,000 mcg PO DAILY [facility] Last Admin: 06/12/23 09:49 Dose: 1,000 mcg Documented By: FLORENCIO Dextrose (Dextrose 50 % 25 Gm/50 Ml Syringe) 25 gm IVPUSH Q15M PRN; Protocol PRN Reason: per Hypoglycemia Standing Ord. Furosemide (Furosemide 40 Mg/4 Ml Vial) 80 mg IVPUSH BID@0900,1800 [facility]; Protocol Last Admin: 06/12/23 17:19 Dose: 80 mg Documented By: AUGUSTINA Glucose (Glucose Gel 15 Gm Gel..Gram.) 15 gm PO Q15M PRN; Protocol PRN Reason: per Hypoglycemia Standing Ord. Insulin Glargine (Insulin Glargine,Hum.Rec.Anlog 100 Unit/Ml 10 Ml Vial) 24 unit SUBCUT BEDTIME [facility] Last Admin: 06/11/23 21:22 Dose: 24 unit Documented By: AUGUSTINA Insulin Human Lispro (Insulin Lispro 100 Unit/Ml 3 Ml Vial) 0 unit SUBCUT QIDACHS [facility]; Protocol Last Admin: 06/12/23 16:56 Dose: 4 unit Documented By: AUGUSTINA Lactulose (Lactulose 20 Gm/30 Ml Solution) 20 gm PO TID [facility] Last Admin: 06/12/23 13:23 Dose: Not Given Documented By: RADHA Non-Admin Reason: Patient Refused Magnesium Oxide (Magnesium Oxide 400 Mg Tablet) 800 mg PO DAILY [facility] Last Admin: 06/12/23 09:49 Dose: 800 mg Documented By: FLORENCIO Multivitamins/Vitamin C (Multivitamin Tablet) 1 tab PO DAILY [facility] Last Admin: 06/12/23 09:49 Dose: 1 tab Documented By: FLORENCIO Pt Own Med ( Entecavir [Baraclude ] 0.5 Mg Tablet) 1 tab PO DAILY [facility] Last Admin: 06/12/23 09:50 Dose: 1 tab Documented By: FLORENCIO Omeprazole (Omeprazole 20 Mg Capsule.Dr) 20 mg PO BID@0630,1630 [facility] Last Admin: 06/12/23 16:03 Dose: 20 mg Documented By: AUGUSTINA Ondansetron HCl (Ondansetron Hcl 4 Mg/2 Ml Vial) 4 mg IVPUSH Q8H PRN PRN Reason: Nausea and Vomiting Pharmacy Consult (Consult Rx Perform Med Rec) 1 each MISCELLANE ONCE PRN PRN Reason: Consult order Rifaximin (Rifaximin 550 Mg Tablet) 550 mg PO BID [facility] Last Admin: 06/12/23 09:49 Dose: 550 mg Documented By: FLORENCIO Sodium Chloride (0.9 % Sodium Chloride Flush 3 Ml Syringe) 3 ml IVFLUSH QSHIFT [facility] Last Admin: 06/12/23 16:04 Dose: 3 ml Documented By: AUGUSTINA Tacrolimus (Tacrolimus 1 Mg Capsule) 1 mg PO DAILY@0800 [facility] Last Admin: 06/12/23 09:50 Dose: 1 mg Documented By: FLORENCIO Tacrolimus (Tacrolimus 1 Mg Capsule) 1 mg PO DAILY@1700 [facility] Last Admin: 06/12/23 16:04 Dose: 1 mg Documented By: AUGUSTINA Zinc Acetate/Diphenhydramine (Diphenhydramine Hcl 2 % Cream 28 Gm Tube) 1 appl TOPICAL QID PRN; Protocol PRN Reason: itching Labs 06/10/23 06:57 06/12/23 05:23 Labs: Laboratory Results - last 24 hr 06/11/23 06/12/23 06/12/23 20:18 05:23 07:23 Anion Gap 8 L Estim Creat Clear Calc 61.5 Estimated GFR > 60 POC Glucose 220 H 115 Random Glucose 110 Calcium 8.6 Total Bilirubin 8.3 H AST 304 H ALT 334 H Alkaline Phosphatase 177 H Total Creatine Kinase 1099 H Total Protein 4.2 L Albumin 1.6 L 06/12/23 06/12/23 11:28 16:16 Anion Gap Estim Creat Clear Calc Estimated GFR POC Glucose 218 H 188 H Random Glucose Calcium Total Bilirubin AST ALT Alkaline Phosphatase Total Creatine Kinase Total Protein Albumin Assessment and Plan Time Spent With Patient Time: Total time managing care of this patient today ____ minutes. Quality Stroke Does the patient have a stroke diagnosis?: No VTE Prior VTE?: No VTE Risk Level:: Medical - moderate - high VTE Device Contraindication: Treatment Not Indicated VTE Drug Contraindication: N/A - Med Ordered
--- NOTE | 2023-06-12 18:45 | PC.NURSE ---
family is requesting to speak to ,Dr. Mcclure made aware
[2023-06-12 19:58] VITALS: BP 146/66; PULSE 91; RESP 18; TEMP 36.7; O2SAT 96
[2023-06-12 20:28] LABS: Glucose, Whole Blood 212 mg/dL (60-115)
[2023-06-12] MEDS: Insulin Glargine,Hum.rec.anlog 100 UNIT/ML 10 ML VIAL 24 UNIT SUBCUT (20:51)
[2023-06-13 03:02] VITALS: BP 127/60; PULSE 88; RESP 16; TEMP 36.6; O2SAT 95
[2023-06-13] MEDS: Omeprazole 20 MG CAPSULE.DR PO ×2 (05:52→17:11)
[2023-06-13 06:02] LABS: Anion Gap 7 (12-20); Blood Urea Nitrogen 27 mg/dL (9-16); Calcium 8.5 mg/dL (8.4-10.2); Carbon Dioxide 30 mmol/L (22-29); Chloride 105 mmol/L (96-108); Estimated Glomerular Filt Rate > 60; Glucose Random 116 mg/dL (60-115); Potassium 3.3 mmol/L (3.3-5.1); Sodium 139 mmol/L (135-145)
[2023-06-13 07:22] LABS: Glucose, Whole Blood 108 mg/dL (60-115)
[2023-06-13 07:26] VITALS: BP 144/68; PULSE 88; RESP 16; TEMP 36.7; O2SAT 96
--- NOTE | 2023-06-13 07:56 | PM.PNNEP ---
Subjective Subjective Date of Service: 06/13/23 Interval history: seen and examined feels better Physical Exam Vital Signs: Vital Signs: Last Vital Signs Temp 98.0 F 06/13/23 07:26 Pulse 88 06/13/23 07:26 Resp 16 06/13/23 07:26 BP 144/68 H 06/13/23 07:26 Pulse Ox 96 06/13/23 07:26 O2 Del Method Room Air 06/13/23 07:26 BMI result Body Mass Index 24.9 Const: General: alert and awake HEENT: Head: Yes normocephalic and Yes atraumatic Neck: Neck: Yes supple Resp: Auscultation: diminished lung sounds Cardio: Heart sounds: S1 normal heart sound present and S2 normal heart sound present GI: Palpation (GI): Soft to palpation and nontender Extrem: Right upper extremity: edema Objective Data Labs 06/10/23 06:57 06/13/23 05:38 Labs: Laboratory Results - last 24 hr 06/12/23 06/12/23 06/12/23 11:28 16:16 20:21 Sodium Potassium Chloride Carbon Dioxide Anion Gap BUN Creatinine Estim Creat Clear Calc Estimated GFR POC Glucose 218 H 188 H 212 H Random Glucose Calcium 06/13/23 06/13/23 05:38 07:13 Sodium 139 Potassium 3.3 Chloride 105 Carbon Dioxide 30 H Anion Gap 7 L BUN 27 H Creatinine 0.88 Estim Creat Clear Calc 65.0 Estimated GFR > 60 POC Glucose 108 Random Glucose 116 H Calcium 8.5 Microbiology Microbiology Results: Microbiology 06/03/23 Unknown Urine clean catch - Urine myles top Urine Culture - Final Procedures Date of Service Date of Service: 06/13/23 Assessment & Plan Assessment and plan (1) Rhabdomyolysis: Status: Acute (2) Metabolic alkalosis: Status: Acute (3) Liver transplant recipient: Status: Acute Plan tacrolimus level low kidney function normal h/o liver transplant rhabdomyolysis due to ? tacrolimus and statins low albumin and anasarca REC c/w furosemide 80 mg IV bid c/w tacrolimus 1 mg bid follow tacrolimus level fluid restriction 1.5 L follow kidney function and electrolytes Time Spent With Patient Time: Total time managing care of this patient today ____ minutes. Progress Note: Quality Stroke Does the patient have a stroke diagnosis?: No
[2023-06-13] MEDS: Lactulose 20 GM/30 ML SOLUTION PO (08:53)
[2023-06-13] MEDS: Cyanocobalamin (Vitamin B-12) 1,000 MCG TABLET 1000 MCG PO (08:53)
[2023-06-13] MEDS: rifAXIMin 550 MG TABLET PO ×2 (08:53→20:07)
[2023-06-13] MEDS: Magnesium Oxide 400 MG TABLET 800 MG PO (08:53)
[2023-06-13] MEDS: 0.9 % Sodium Chloride Flush 3 ML SYRINGE IVFLUSH ×3 (08:54→23:51)
[2023-06-13] MEDS: Furosemide 40 MG/4 ML VIAL 80 MG IVPUSH ×2 (08:54→17:10)
[2023-06-13] MEDS: Multivitamin TABLET 1 TAB PO (08:54)
[2023-06-13] MEDS: Tacrolimus 1 MG CAPSULE PO ×2 (08:54→17:10)
--- NOTE | 2023-06-13 10:46 | P.PNIM_ITS ---
Subjective Subjective Date of Service: 06/14/23 Interval History: Being followed for rhabdo and generalized anasarca patient feeling significantly better ambulating without lightheadedness dizziness or shortness of breath complaining of right chest wall discomfort that is gradually improving, feels less swollen, denies nausea, vomiting, tolerating diet, moving bowels, taking all his medications, no confusion, no other acute issues. Review of Systems All other systems reviewed and negative Physical Exam Vital Signs: Vital Signs: Last Vital Signs Temp 98.0 F 06/13/23 07:26 Pulse 88 06/13/23 07:26 Resp 16 06/13/23 07:26 BP 144/68 H 06/13/23 07:26 Pulse Ox 96 06/13/23 07:26 O2 Del Method Room Air 06/13/23 07:26 BMI result Body Mass Index 24.9 Const: Other: Gen: in no acute distress Neck: supple Lungs:? Clear to auscultation diminished at bases Right anterior chest wall tender to palpation no ecchymosis Heart: regular rate and rhythm, no murmurs Abd: soft, non-tender, non-distended Ext: 2+ BLE edema, scrotal swelling improving Right upper extremity swelling greater than left, no redness, no warmth, nontender Skin: warm/well-perfused, multiple bruises Neuro: alert and oriented x3, no focal findings Psych: appropriate affect Objective Data Active Medications Acetaminophen (Acetaminophen 325 Mg Tablet) 325 mg PO Q4H PRN PRN Reason: severe pain Last Admin: 06/11/23 22:06 Dose: 325 mg Documented By: AUGUSTINA Cyanocobalamin (Cyanocobalamin (Vitamin B-12) 1,000 Mcg Tablet) 1,000 mcg PO DAILY [facility] Last Admin: 06/13/23 08:53 Dose: 1,000 mcg Documented By: RADHA Dextrose (Dextrose 50 % 25 Gm/50 Ml Syringe) 25 gm IVPUSH Q15M PRN; Protocol PRN Reason: per Hypoglycemia Standing Ord. Furosemide (Furosemide 40 Mg/4 Ml Vial) 80 mg IVPUSH BID@0900,1800 [facility]; Protocol Last Admin: 06/13/23 08:54 Dose: 80 mg Documented By: RADHA Glucose (Glucose Gel 15 Gm Gel..Gram.) 15 gm PO Q15M PRN; Protocol PRN Reason: per Hypoglycemia Standing Ord. Insulin Glargine (Insulin Glargine,Hum.Rec.Anlog 100 Unit/Ml 10 Ml Vial) 24 u nit SUBCUT BEDTIME [facility] Last Admin: 06/12/23 20:51 Dose: 24 unit Documented By: AUGUSTINA Insulin Human Lispro (Insulin Lispro 100 Unit/Ml 3 Ml Vial) 0 unit SUBCUT QIDACHS [facility]; Protocol Last Admin: 06/13/23 07:45 Dose: Not Given Documented By: RADHA Non-Admin Reason: No Insulin Coverage Lactulose (Lactulose 20 Gm/30 Ml Solution) 20 gm PO TID [facility] Last Admin: 06/13/23 08:53 Dose: 20 gm Documented By: RADHA Magnesium Oxide (Magnesium Oxide 400 Mg Tablet) 800 mg PO DAILY [facility] Last Admin: 06/13/23 08:53 Dose: 800 mg Documented By: RADHA Multivitamins/Vitamin C (Multivitamin Tablet) 1 tab PO DAILY [facility] Last Admin: 06/13/23 08:54 Dose: 1 tab Documented By: RADHA Pt Own Med ( Entecavir [Baraclude ] 0.5 Mg Tablet) 1 tab PO DAILY [facility] Last Admin: 06/13/23 08:53 Dose: 1 tab Documented By: RADHA Omeprazole (Omeprazole 20 Mg Capsule.) 20 mg PO BID@0630,1630 [facility] Last Admin: 06/13/23 05:52 Dose: 20 mg Documented By: AMANDA Ondansetron HCl (Ondansetron Hcl 4 Mg/2 Ml Vial) 4 mg IVPUSH Q8H PRN PRN Reason: Nausea and Vomiting Pharmacy Consult (Consult Rx Perform Med Rec) 1 each MISCELLANE ONCE PRN PRN Reason: Consult order Rifaximin (Rifaximin 550 Mg Tablet) 550 mg PO BID [facility] Last Admin: 06/13/23 08:53 Dose: 550 mg Documented By: RADHA Sodium Chloride (0.9 % Sodium Chloride Flush 3 Ml Syringe) 3 ml IVFLUSH QSHIFT [facility] Last Admin: 06/13/23 08:54 Dose: 3 ml Documented By: RADHA Tacrolimus (Tacrolimus 1 Mg Capsule) 1 mg PO DAILY@0800 [facility] Last Admin: 06/13/23 08:54 Dose: 1 mg Documented By: RADHA Tacrolimus (Tacrolimus 1 Mg Capsule) 1 mg PO DAILY@1700 [facility] Last Admin: 06/12/23 16:04 Dose: 1 mg Documented By: AUGUSTINA Zinc Acetate/Diphenhydramine (Diphenhydramine Hcl 2 % Cream 28 Gm Tube) 1 appl TOPICAL QID PRN; Protocol PRN Reason: itching Labs 06/10/23 06:57 06/13/23 05:38 Labs: Laboratory Results - last 24 hr 06/12/23 06/12/23 06/12/23 11:28 16:16 20:21 Anion Gap Estim Creat Clear Calc Estimated GFR POC Glucose 218 H 188 H 212 H Random Glucose Calcium Total Creatine Kinase 06/13/23 06/13/23 05:38 07:13 Anion Gap 7 L Estim Creat Clear Calc 65.0 Estimated GFR > 60 POC Glucose 108 Random Glucose 116 H Calcium 8.5 Total Creatine Kinase 724 H Assessment and Plan (1) Rhabdomyolysis: Status: Acute (2) Antiphospholipid antibody syndrome: Status: Inactive (3) Acute renal failure due to rhabdomyolysis: Status: Resolved Plan 73yo M with transplant of HBV+ liver in 2010, hx HCV cirrhosis, 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, hx TIPS presenting with 2 wk of dark-colored urine, muscle aches, and weakness admitted for rhabdomyolysis rhabdomyolysis, non-traumatic - possibly due to statin?boosted by tacrolimus - CPK down to 1099 s/p ivf,/ d/c'ed IV fluids 06/10 -follow CPK, tacrolimus level and BMP - accepted by [facility], awaiting bed for past 8 d anasarca - due to fluid resuscitation + hypoalbuminemia - continue furosemide 80 mg IV bid, responding well to IV Lasix but remains significantly positive - fluid restriction 1.5 L/d, stable renal function, being followed by Nephrology B pleural effusion - R effusion is loculated and chronic dating back to 2016 - L effusion is new, suspect due to hypoalbuminemia/volume overload - Pulm consulted, no intervention recommended at this point as pt is relatively asymptomatic Rt upper extremity swelling ultrasound negative for DVT. 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 Quality Stroke Does the patient have a stroke diagnosis?: No VTE Prior VTE?: No VTE Risk Level:: Medical - moderate - high VTE Device Contraindication: Treatment Not Indicated VTE Drug Contraindication: N/A - Med Ordered
[2023-06-13 11:15] LABS: Glucose, Whole Blood 213 mg/dL (60-115)
[2023-06-13] MEDS: Insulin Lispro 100 UNIT/ML 3 ML VIAL SUBCUT ×3 (11:27→20:15)
--- NOTE | 2023-06-13 13:54 | MHC.CM.PN ---
per rounds pt still waiting for a bed at [facility]
[2023-06-13 15:14] VITALS: BP 151/68; PULSE 85; RESP 16; TEMP 36.7; O2SAT 96
[2023-06-13 16:29] LABS: Glucose, Whole Blood 227 mg/dL (60-115)
[2023-06-13 19:41] VITALS: BP 154/71; PULSE 83; RESP 17; TEMP 36.5; O2SAT 96
[2023-06-13 20:11] LABS: Glucose, Whole Blood 242 mg/dL (60-115)
[2023-06-13] MEDS: Insulin Glargine,Hum.rec.anlog 100 UNIT/ML 10 ML VIAL 24 UNIT SUBCUT (20:16)
--- NOTE | 2023-06-13 22:52 | PC.NURSE ---
Ambulance staff arrived but unable handle ALS transfer,stating they do not have staff to be able to do ALS transfer,spoke with Dr. Haile but Dr. Haile states patient need ALS transfer,Nursing Instructor Physical Education was notified of this situation.Patient made aware that transfer will be cancelled for tonight.
--- NOTE | 2023-06-13 23:05 | PC.NURSE ---
Spoke with Talya at [facility],they will hold bed for this patient if we can arrange for ALS transfer in AM,Nursing probation supervisor was notified and she will make an arrangment,patient and arnold was made aware of this situation
[2023-06-13 23:33] VITALS: BP 127/59; PULSE 91; RESP 17; TEMP 36.2; O2SAT 96
[2023-06-13] MEDS: Acetaminophen 325 MG TABLET PO (23:54)
[2023-06-14] MEDS: Omeprazole 20 MG CAPSULE.DR PO (05:52)
[2023-06-14 07:18] LABS: Glucose, Whole Blood 118 mg/dL (60-115)
--- NOTE | 2023-06-14 07:32 | P.DS_ITS ---
DS: Providers Provider Date of Service: 06/14/23 Date of admission: 06/02/23 23:46 Primary care physician: Amauri Eric MD Consults: 06/02/23 23:45 Consult to Nephrology Routine Consulting Provider: [facility] Reason for consultation: Tim DIANA Has provider been notified: No 06/11/23 07:20 Consult to Pulmonology Routine Consulting Provider: [facility] Pulmonology Services Reason for consultation: ?loculated pl eff ?hepatic hydrothorax? DS: Diagnosis Discharge Diagnosis (1) Rhabdomyolysis: Status: Acute (2) Antiphospholipid antibody syndrome: Status: Inactive (3) Acute renal failure due to rhabdomyolysis: Status: Resolved DS: Summary Hospital Course Hospital Course: History of presenting illness Date of Service: 06/02/23 Chief Complaint: Weakness 73-year-old male with past medical history of cardiolipin antibody syndrome, hepatitis-C, liver cirrhosis, status post liver transplant 2010 at [facility], diabetes, hypertension, presents the hospital with complaints of muscle aches and weakness. Patient is Ecuadorean-speaking but speaks some Lithuanian, is here with his , and state that his symptoms started about 2 weeks ago, he also noticed a change in his color to yellow, he has had significant muscle aches, and weakness in general.? He otherwise denies any chest pain, no shortness of breath, no abdominal pain nausea or vomiting, no recent diarrhea, no urinary symptoms and no lower extremity edema.? No fever or chills.? Compliant with his medications.? No recent fall or trauma.? On arrival to the ED patient hemodynamically stable with no significant abnormal vitals Labs are significant for WBC count of 3.1, hemoglobin of 10.4, which is around his baseline, INR of 2.0, PT of 23, sodium 132, creatinine of 1.56 with a baseline of around 1.3, bilirubin of 3.6, AST of 954, ALT of 319, alk-phos of 238, and CPK of 27,508. Case was discussed with his Hapatology team at [facility] by the ED physician, at this time there is no indication for transfer as his LFTs have revealed improvement on repeat labs.? Patient will be admitted for further monitoring and placed on IV fluids. 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 and aggravated by tacrolimus, patient treated with IV fluids and IV soda bicarb drip, tacrolimus was held briefly, CPK trended [place] 724 [place] [id number] , IV fluid discontinued, patient noted to have anasarca likely due to fluid overload and hypoalbuminemia currently being treated with IV Lasix under supervision of Nephrology, renal function remains stable, bicarb 30 case discussed with hepatology team and they accepted patient to their care therefore he will be transferred to [facility], last tacrolimus level 3.4 on 06/10 repeat level from 06/13 is pending,tacrolimus dose increased to 1 mg by mouth b.i.d. /fluid balance remains positive. hyperbilirubinemia/transaminitis suspect acute elevation due to dehydration, recurrent cirrhosis, elevated INR, low albumin, no evidence of encephalopathy LEBRON resolved with IV hydration. Right upper extremity swelling venous Doppler showed no DVT pancytopenia due to cirrhosis; DC aspirin, counts at baseline. 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 due to varices,? 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 Discharge coordination time: Greater than 30 minutes Quality: Safe Use of Opioids Does Pt have an Active Cancer Diagnosis on the Problem List?: No Quality: Stroke Does the patient have a stroke diagnosis?: No Physical Exam Vital Signs: Vital Signs: Last Vital Signs Temp 97.2 F 06/13/23 23:33 Pulse 91 06/13/23 23:33 Resp 17 06/13/23 23:33 BP 127/59 L 06/13/23 23:33 Pulse Ox 96 06/13/23 23:33 O2 Del Method Room Air 06/13/23 23:33 BMI result Body Mass Index 24.9 Const: Other: Gen: in no acute distress Neck: supple Lungs:? Clear to auscultation diminished at bases Right anterior chest wall tender to palpation no ecchymosis Heart: regular rate and rhythm, no murmurs Abd: soft, non-tender, non-distended Ext: 2+ BLE edema, scrotal swelling improving Right upper extremity swelling greater than left, no redness, no warmth, nontender Skin: warm/well-perfused, multiple bruises Neuro: alert and oriented x3, no focal findings Psych: appropriate affect DS: Data Data Completed and Pending Labs on day of discharge: Laboratory Results - last 24 hr 06/13/23 06/13/23 06/13/23 05:38 11:09 16:21 POC Glucose 213 H 227 H Total Creatine Kinase 724 H 06/13/23 06/14/23 20:08 07:12 POC Glucose 242 H 118 H Total Creatine Kinase Discharge Plan Discharge Anticipated Discharge Date/Time: 06/14/23 07:31 Patient Disposition: Xfer Acute [facility] Discharge Diagnosis: Rhabdomyolysis LEBRON Elevated LFTs Pancytopenia Referrals: Amauri Eric MD [Primary Care Provider] - 1 Week Discharge Medications: New furosemide 10 mg/mL Solution 80 mg IVPUSH BID@0900,1800 Qty: 0 0RF Protocol: Hold for SBP< HOLD for SBP < : 90 tacrolimus 1 mg Capsule 1 mg PO DAILY@1700 Qty: 0 0RF tacrolimus 1 mg Capsule 1 mg PO DAILY@0800 Qty: 0 0RF Continued entecavir [Baraclude] 0.5 mg tablet 1 tab PO DAILY magnesium oxide 400 mg magnesium Tablet 800 mg PO DAILY pantoprazole 40 mg tablet,delayed release (DR/EC) 40 mg PO BID insulin aspart U-100 [Novolog FlexPen U-100 Insulin] 100 unit/mL (3 mL) insulin pen See Protocol subcut TID Protocol: Insulin Correction Scale Less than or equal to 110 ---- Give (units): 0 111 to 150 Give (units): 0 151 to 200 Give (units): 2 201 to 250 Give (units): 4 251 to 300 Give (units): 6 301 to 350 Give (units): 8 Greater than 350 Give (units): 10 Call MD if Blood Glucose > : 350 lactulose 10 gram/15 mL solution 30 ml PO TID Xifaxan 550 mg tablet 550 mg PO BID multivitamin Tablet 1 tab PO DAILY cyanocobalamin (vitamin B-12) 1,000 mcg Tablet 1,000 mcg PO DAILY Changed insulin glargine [Lantus Solostar U-100 Insulin] 100 unit/mL (3 mL) insulin pen 20 unit subcut BEDTIME Qty: 15 0RF Discontinued aspirin 81 mg tablet,delayed release (DR/EC) 1 tab PO DAILY tacrolimus [Prograf] 0.5 mg Capsule 0.5 mg PO DAILY Discharge Orders: Discharge Order (Routine); Ordered 06/14/23 Ordered By: Donato Mcclure Diet: Diabetic diet Activity on Discharge: As tolerated Stand Alone Forms: Patient Portal Discharge page Care Plan Goals: Worsening CPK/recurrent cirrhosis being transferred to [facility] liver transplant team,CPK improved, on iv lasix for anasarca, Stop aspirin due to low platelets and elevated INR Health Concerns: anasarca Plan of Treatment: Follow-up with hepatology and primary care physician Assessment: As above
[2023-06-14 07:50] VITALS: BP 157/68; PULSE 90; RESP 18; TEMP 36.6; O2SAT 95
--- NOTE | 2023-06-14 07:50 | PM.PNNEP ---
Subjective Subjective Date of Service: 06/14/23 Interval history: seen and examined awaiting transfer to [facility] feels better Physical Exam Vital Signs: Vital Signs: Last Vital Signs Temp 97.2 F 06/13/23 23:33 Pulse 91 06/13/23 23:33 Resp 17 06/13/23 23:33 BP 127/59 L 06/13/23 23:33 Pulse Ox 96 06/13/23 23:33 O2 Del Method Room Air 06/13/23 23:33 BMI result Body Mass Index 24.9 Const: General: alert and awake HEENT: Head: Yes normocephalic and Yes atraumatic Neck: Neck: Yes supple Resp: Auscultation: diminished lung sounds Cardio: Heart sounds: S1 normal heart sound present and S2 normal heart sound present GI: Palpation (GI): Soft to palpation and nontender Extrem: Right upper extremity: edema Objective Data Labs 06/10/23 06:57 06/13/23 05:38 Labs: Laboratory Results - last 24 hr 06/13/23 06/13/23 06/13/23 05:38 11:09 16:21 POC Glucose 213 H 227 H Total Creatine Kinase 724 H 06/13/23 06/14/23 20:08 07:12 POC Glucose 242 H 118 H Total Creatine Kinase Microbiology Microbiology Results: Microbiology 06/03/23 Unknown Urine clean catch - Urine myles top Urine Culture - Final Procedures Date of Service Date of Service: 06/14/23 Assessment & Plan Assessment and plan (1) Rhabdomyolysis: Status: Acute (2) Metabolic alkalosis: Status: Acute (3) Liver transplant recipient: Status: Acute Plan tacrolimus level low tacrolimus dose increased kidney function normal h/o liver transplant rhabdomyolysis due to tacrolimus and statins low albumin and anasarca REC c/w furosemide 80 mg IV bid c/w tacrolimus 1 mg bid follow tacrolimus level fluid restriction 1.5 L follow kidney function and electrolytes transfer to [facility] Time Spent With Patient Time: Total time managing care of this patient today ____ minutes. Progress Note: Quality Stroke Does the patient have a stroke diagnosis?: No
[2023-06-14] MEDS: Magnesium Oxide 400 MG TABLET 800 MG PO (08:10)
[2023-06-14] MEDS: 0.9 % Sodium Chloride Flush 3 ML SYRINGE IVFLUSH (08:10)
[2023-06-14] MEDS: Cyanocobalamin (Vitamin B-12) 1,000 MCG TABLET 1000 MCG PO (08:10)
[2023-06-14] MEDS: Multivitamin TABLET 1 TAB PO (08:10)
[2023-06-14] MEDS: Tacrolimus 1 MG CAPSULE PO (08:11)
--- NOTE | 2023-06-14 08:11 | MHC.CM.PN ---
PT WILL TRANSFER TO [facility] VIA [facility]
[2023-06-15 13:19] LABS: Tacrolimus Prograf 7.5 NG/ML ((5-20))
== END 2023-06-14 08:49 | disposition short-term general hospital (02) | DRG 442 ==
LOC: HO.ED 23:38 → HO.EDOVER 23:52 → HO.S3 06-03 07:49
PROVIDERS: Family Medicine; Internal Medicine; Internal Medicine Nephrology; Admitting Provider Internal Medicine; Emergency Provider Student in an Organized Health Care Education/Training Program; PCP Internal Medicine; Visit Provider Hospitalist
DX: T86.42 Liver transplant failure (principal); B18.1 Chronic viral hepatitis B without delta-agent; D61.818 Other pancytopenia; M62.82 Rhabdomyolysis; N17.9 Acute kidney failure, unspecified; D84.821 Immunodeficiency due to drugs; E87.3 Alkalosis; J94.8 Other specified pleural conditions; E86.0 Dehydration; T45.1X5A Adverse effect of antineoplastic and immunosuppressive drugs, initial encounter; T46.6X5A Adverse effect of antihyperlipidemic and antiarteriosclerotic drugs, initial encounter; K74.60 Unspecified cirrhosis of liver; E88.09 Other disorders of plasma-protein metabolism, not elsewhere classified; Z79.621 Long term (current) use of calcineurin inhibitor; I10 Essential (primary) hypertension; E11.9 Type 2 diabetes mellitus without complications; Z79.52 Long term (current) use of systemic steroids; Z79.899 Other long term (current) drug therapy
CPT/HCPCS: 36415; 71045; 71250; 76705; 76870; 80048; 80051; 80053; 80076; 80197; 80307; 81001; 81003; 82550; 82947; 83690; 83735; 84145; 85025; 85027; 85610; 87086; 92610; 93005; 93971; 97116; 97162; 99285; J1940

== ENCOUNTER → 2023-06-02 21:28 | Outpatient (BNV) | payer OTHER, SELFPAY | PROVIDERS: Admitting Provider Internal Medicine; Emergency Provider Student in an Organized Health Care Education/Training Program; PCP Internal Medicine; Visit Provider Internal Medicine Cardiovascular Disease | DX: R94.31 Abnormal electrocardiogram [ECG] [EKG] (principal) | CPT/HCPCS: 93010 ==

== ENCOUNTER → 2023-06-02 23:46 | Outpatient (BNV) | payer MEDICARE, SELFPAY | PROVIDERS: Admitting Provider Internal Medicine; Emergency Provider Student in an Organized Health Care Education/Training Program; PCP Internal Medicine; Visit Provider Internal Medicine Pulmonary Disease | DX: J90 Pleural effusion, not elsewhere classified (principal); J94.8 Other specified pleural conditions | CPT/HCPCS: 99232 ==

== ENCOUNTER → 2023-06-02 23:46 | Outpatient (BNV) | payer OTHER, SELFPAY | PROVIDERS: Admitting Provider Internal Medicine; Emergency Provider Student in an Organized Health Care Education/Training Program; PCP Internal Medicine; Visit Provider Internal Medicine | DX: M62.82 Rhabdomyolysis (principal); D68.61 Antiphospholipid syndrome; N17.9 Acute kidney failure, unspecified | CPT/HCPCS: 99223; 99232; 99233; 99239 ==

== ENCOUNTER 2023-06-24 12:07 | Outpatient (REF) | payer MEDICARE, SELFPAY ==
--- NOTE | ~2023-06-24 | US_ITS ---
EXAMINATION: US VENOUS ULTRASOUND WITH DOPPLER LOWER EXTREMITY, BILATERAL CLINICAL INFORMATION: Bilateral leg edema evaluate for DVT COMPARISON: Ultrasound venous Doppler lower extremity from 11/06/2020 TECHNIQUE: Ultrasound of the deep veins is performed from the hip to the calf with compression sonography and color and pulse Doppler assessment. Spectral analysis with color-flow imaging is performed. Technical limitation secondary to scarring from previous surgery FINDINGS: RIGHT: There is normal venous compression and respiratory variation and augmented flow. The visualized common femoral vein, superficial femoral vein, profunda femoral vein, popliteal vein, and the trifurcation region shows no evidence of deep venous thrombosis. There is no significant popliteal fossa cyst. Right lower extremity edema. LEFT: There is normal venous compression and respiratory variation and augmented flow. The visualized common femoral vein, superficial femoral vein, profunda femoral vein, popliteal vein, and the trifurcation region shows no evidence of deep venous thrombosis. There is no significant popliteal fossa cyst. Left lower extremity edema. If the patient's symptoms persist, followup ultrasound in 5 days 7 days might be of value to exclude proximal propagation from a non-visualized calf vein. US/US venous duplex LE IMPRESSION: 1. No DVT demonstrated in the bilateral lower extremity. 2. Bilateral lower extremity edema.
[2023-06-24 13:57] LABS: Alanine Aminotransferase 148 U/L (0-40); Albumin Level 2.5 g/dL (3.5-5.0); Alkaline Phosphatase 273 U/L (39-117); Anion Gap 15 (12-20); Aspartate Amino Transferase 102 U/L (5-37); Bilirubin Direct 2.5 mg/dL (0.0-0.5); Bilirubin Total 6.9 mg/dL (0.0-1.0); Blood Urea Nitrogen 23 mg/dL (9-16); Carbon Dioxide 23 mmol/L (22-29); Chloride 107 mmol/L (96-108); Estimated Glomerular Filt Rate > 60; Glucose Random 163 mg/dL (60-115); Potassium 4.2 mmol/L (3.3-5.1); Sodium 141 mmol/L (135-145); Total Protein 6.5 g/dL (6.5-8.0)
[2023-06-24 14:15] LABS: TSH reflex Free T4 2.58 uIU/mL (0.32-4.0)
[2023-06-24 14:42] LABS: Appearance Urine Clear; Color Urine Dark Yellow; Glucose Urine UA Negative (Negative); Leukocyte Esterase Urine Negative (Negative); Nitrite Urine Negative (Negative); Specific Gravity - Urine 1.015 (1.005-1.025); Urine Blood Negative (Negative); Urine Ketones Negative (Negative); Urine Protein Negative (Neg-Trace)
== END 2023-06-24 12:08 | disposition home or self-care (01) ==
LOC: HO.US 12:07
PROVIDERS: PCP Internal Medicine; Visit Provider Internal Medicine
DX: I83.891 Varicose veins of right lower extremity with other complications (principal); N28.9 Disorder of kidney and ureter, unspecified; R60.0 Localized edema; Z94.4 Liver transplant status
CPT/HCPCS: 36415; 80048; 80076; 81003; 84443; 93970

== ENCOUNTER 2023-07-09 19:21 | Emergency (ER) | payer MEDICARE, SELFPAY ==
[2023-07-09 20:02] VITALS: BP 167/56; PULSE 87; RESP 16; TEMP 37.4; O2SAT 98; BMI 22.0
--- NOTE | 2023-07-09 20:02 | ED_ITS ---
HPI - General Adult General Chief complaint: Back Pain/Injury Stated complaint: right hip pain and bruising,fever Time Seen by Provider: 07/09/23 23:29 Source: patient and family () Mode of arrival: ambulatory Limitations: no limitations History of Present Illness HPI narrative: 73-year-old male presents emergency department for evaluation of right hip, posterior thigh and buttocks pain. Patient states he is having pain in his right upper leg for approximately 2 weeks. Patient states that he noticed black and blue timmons in this area over the last 3 days, he reports no injury. Patient states the pain is a constant, throbbing pain, the pain is worse with movement of his leg. He denies any numbness or weakness in the extremity. Denied fever, chills, shortness of breath, dyspnea on exertion, nausea, vomiting. Patient has taken Tylenol for the pain. He states this is given a minimal relief. The patient is a liver transplant patient and he gets his care through [facility]. He states that during his last visit he was told that is cirrhosis came back. Related Data Home Medications Medication Instructions Recorded Confirmed entecavir 0.5 mg tablet (Baraclude) 1 tab PO DAILY 12/22/20 06/03/23 magnesium oxide 800 mg PO DAILY 12/22/20 06/03/23 cyanocobalamin (vitamin B-12) 1,000 mcg PO DAILY 06/03/23 06/03/23 1,000 mcg tablet insulin aspart U-100 100 unit/mL See Protocol subcut TID 06/03/23 06/03/23 (3 mL) subcutaneous pen (Novolog FlexPen U-100 Insulin aspart) lactulose 10 gram/15 mL oral 30 ml PO TID 06/03/23 06/03/23 solution multivitamin 1 tab PO DAILY 06/03/23 06/03/23 pantoprazole 40 mg tablet,delayed 40 mg PO BID 06/03/23 06/03/23 release rifaximin 550 mg tablet (Xifaxan) 550 mg PO BID 06/03/23 06/03/23 Previous Rx's Medication Instructions Recorded insulin glargine 100 unit/mL (3 20 unit (0.2 mL) subcut BEDTIME 06/05/23 mL) subcutaneous pen (Lantus #15 mL Solostar U-100 Insulin) furosemide 10 mg/mL injection 80 mg IVPUSH BID@0900,1800 #0 mL 06/13/23 solution tacrolimus 1 mg capsule, 1 mg PO DAILY@0800 #0 caps 06/13/23 immediate-release tacrolimus 1 mg capsule, 1 mg PO DAILY@1700 #0 caps 06/13/23 immediate-release oxycodone 5 mg tablet 5 mg PO Q6H PRN pain #14 tabs 07/10/23 Allergies Allergy/AdvReac Type Severity Reaction Status Date / Time lisinopril AdvReac Unknown cough Verified 07/09/23 20:02 Review of Systems Review of Systems: Yes all other systems are reviewed and are negative [facility] Past Medical History [facility] Narrative: Social history: He denies tobacco, alcohol and drug use Medical History Antiphospholipid antibody syndrome Diabetes H/O pleural effusion H/O: CVA (cerebrovascular accident) Hepatitis C HTN (hypertension) Loculated pleural effusion Nephrolithiasis Surgical History H/O hernia repair History of liver transplant History of surgery on arm Hx of colonoscopy Liver transplant recipient Family History Family History Father Prostate cancer Mother Diabetes HTN (hypertension) Social History Social History Household Members: Spouse Housing: House Are you a primary campground caretaker to a significant other at home: No Do you presently have visiting nurse or other home services: No Alcohol intake: former Patient Tobacco Use Status: Never used Tobacco Smoked in Last 30 Days: No Advance Directives: No Advance Directives Information Provided: Yes service: No Current occupational status: employed Physical Exam ED Vital Signs: Vital Signs - 24 hr 07/09/23 20:02 07/09/23 22:50 Temperature 99.3 F 98.5 F Pulse Rate 87 96 Respiratory Rate 16 18 Blood Pressure 167/56 H 145/62 H Pulse Oximetry 98 97 Oxygen Delivery Method Room Air Room Air BMI result Body Mass Index 22.0 Vital signs revealed an elevated blood pressure of 167/56 Exam: General: Awake, alert in no distress, patient's skin is jaundiced Head: Normocephalic, atraumatic EENT: PERRL, Lids normal, sclera are icteric, conjunctiva normal, nose normal , ears normal, throat without erythema or exudates Neck: Supple, no adenopathy, trachea midline and nontender Lung: breath sounds symmetric, no wheezing, rales or rhonchi Chest: symmetric movement, nontender Heart: regular rate and rhythm, normal S1, S2 no murmurs or rubs Abdomen: soft, non-tender, nondistended, normal bowel sounds Back: no vertebral tenderness, no CVAT Extremities: Patient has full range of motion of both extremities without any discomfort, patient does have ecchymosis and hematoma to his right posterior thigh, ecchymosis extends to his buttocks and to his lower back Skin: Jaundice, no skin lesions Neuro: Awake, alert, oriented, normal speech, cranial nerves intact, moves all extremities symmetrically Psych: Pleasant, cooperative Course Course Course Narrative: RME: 73yo M w/PMHx DM, Antiphospholipid syndrome, CVA, Hep C, HTN, transplant of HBV+ liver in 2010, hx HCV cirrhosis, 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 Seen at [facility] had x-rays last week, but has not heard back on results. States pain now radiating down RLE +ecchymosis to buttock area and +B/L LE pitting edema Labs & UA ordered *Records requested from [facility]* Full HPI, ROS and PE to be performed by primary ED provider. Medications Administered Discontinued Medications Generic Name Dose Route Start Last Admin Trade Name Freq PRN Reason Stop Dose Admin Oxycodone HCl 5 mg 07/10/23 00:35 07/10/23 00:49 Oxycodone Hcl Immed Release 5 Mg Tablet PO 07/10/23 00:36 5 mg ONCE STA Administration Medical Decision Making Medical Decision Making [facility] Narrative: 73-year-old male who presents emergency department for evaluation of 2 weeks of pain to his right posterior thigh, hip and buttocks area. Patient has noticed ecchymosis in this area over the past 3 days. Vital signs were unremarkable except for elevated blood pressure. Exam did reveal hematoma to his right posterior thigh with ecchymosis the posterior thigh buttocks and lower back. This is most likely the cause was pain I did discuss this with him. Patient was advised not to take Tylenol or ibuprofen, he was prescribed oxycodone given 1 tablet here in the emergency department for his pain. Patient also has jaundice and is icteric. Patient's laboratory evaluation was concerning for elevated total bilirubin of 14.3 with a direct bilirubin of 3.2 an indirect bilirubin 11.7. Patient has had elevated total bilirubin is as high as 10.5 ( 06/06/2023) which have mainly been indirect bilirubin elevations. [place] is a transplant patient and I did tell him he needs to discuss this elevated indirect bilirubin with his transplant team. This may be related to his cirrhosis or may be caused by hemolysis secondary to drug reaction. Differential Diagnosis Differential Diagnoses: The differential diagnosis associated with the presentation includes Differential diagnosis includes was not limited to musculoskeletal strain, fracture, hematoma, DVT, infection Admission/Observation Consideration of admission/observation: Escalation of care including admission/observation considered Lab Data MDM Lab Attestation statement: I reviewed the patient's lab results. My independent interpretation patient's laboratory evaluation is as follows: He WBC load 2600, H&H low 9.5 and 28.7-this is chronic. AST and ALT elevated 75 and 82. Alk-phos elevated to 85-LFT elevations total bilirubin elevated 14.9, direct bilirubin elevated 3.2.-these are chronic but higher than his baseline. 07/09/23 20:22 07/09/23 20:22 Labs: Lab Results 07/09/23 07/09/23 07/09/23 Range/Units 20:22 20:22 20:22 WBC 2.6 L (4.8-10.8) X10*3/uL RBC 3.28 L (4.60-5.80) X10*6/uL Hgb 9.5 L (14.0-18.0) g/dl Hct 28.7 L (42.0-52.0) % MCV 87.5 (80.0-98.0) fL MCH 29.0 (27.0-33.0) pg MCHC 33.1 (31.0-36.0) g/dl RDW 20.5 H (11.0-16.0) % Plt Count TNP MPV Not Reportable Immature Gran % (Auto) 0.8 H (0.0-0.4) % Neut % (Auto) 71.2 (45-73) % Lymph % (Auto) 13.6 L (20-40) % [place] % (Auto) 10.5 (2-11) % Eos % (Auto) 2.7 (0-4) % Baso % (Auto) 1.2 (0-2) % Lymph # (Auto) 0.4 L (1.2-4.9) X10*3/uL [place] # (Auto) 0.3 (0.1-1.2) X10*3/uL Eos # (Auto) 0.1 (0.0-0.4) X10*3/uL Baso # (Auto) 0.0 (0.0-0.2) X10*3/uL Abs Immat Gran (auto) 0.02 (0.00-0.03) X10*3/uL Absolute Neuts (auto) 1.8 L (2.0-8.3) x10*3/uL Absolute Nucleated RBC 0.000 (0.0-0.012) X10*3/uL Nucleated RBC % (auto) 0.0 (0.0-0.2) /100WBC Smear Tech's Comments VERIFIED PT 23.0 H (11.1-13.3) SEC INR 1.9 H (0.9-1.1) Sodium 137 (135-145) mmol/L Potassium 3.9 (3.3-5.1) mmol/L Chloride 104 (96-108) mmol/L Carbon Dioxide 24 (22-29) mmol/L Anion Gap 13 (12-20) BUN 20 H (9-16) mg/dL Creatinine 1.09 (0.5-1.4) mg/dL Estim Creat Clear Calc 51.2 Estimated GFR > 60 Random Glucose 206 H (60-115) mg/dL Calcium 9.4 (8.4-10.2) mg/dL Magnesium 1.7 (1.6-2.6) mg/dL Total Bilirubin 14.9 H (0.0-1.0) mg/dL Direct Bilirubin 3.2 H (0.0-0.5) mg/dL AST 75 H (5-37) U/L ALT 82 H (0-40) U/L Alkaline Phosphatase 285 H (39-117) U/L B-Natriuretic Peptide (<100) pg/mL Total Protein 7.6 (6.5-8.0) g/dL Albumin 3.0 L (3.5-5.0) g/dL Lipase 30 (8-78) U/L Urine Color Urine Appearance Urine pH (5.0-9.0) Ur Specific [place] (1.005-1.025) Urine Protein (Neg-Trace) mg/dL Urine Glucose (UA) (Negative) mg/dL Urine Ketones (Negative) mg/dL Urine Blood (Negative) Urine Nitrite (Negative) Ur Leukocyte Esterase (Negative) 07/09/23 07/09/23 Range/Units 20:22 20:22 WBC (4.8-10.8) X10*3/uL RBC (4.60-5.80) X10*6/uL Hgb (14.0-18.0) g/dl Hct (42.0-52.0) % MCV (80.0-98.0) fL MCH (27.0-33.0) pg MCHC (31.0-36.0) g/dl RDW (11.0-16.0) % Plt Count MPV Immature Gran % (Auto) (0.0-0.4) % Neut % (Auto) (45-73) % Lymph % (Auto) (20-40) % [place]rie % (Auto) (2-11) % Eos % (Auto) (0-4) % Baso % (Auto) (0-2) % Lymph # (Auto) (1.2-4.9) X10*3/uL [place] # (Auto) (0.1-1.2) X10*3/uL Eos # (Auto) (0.0-0.4) X10*3/uL Baso # (Auto) (0.0-0.2) X10*3/uL Abs Immat Gran (auto) (0.00-0.03) X10*3/uL Absolute Neuts (auto) (2.0-8.3) x10*3/uL Absolute Nucleated RBC (0.0-0.012) X10*3/uL Nucleated RBC % (auto) (0.0-0.2) /100WBC Smear Tech's Comments PT (11.1-13.3) SEC INR (0.9-1.1) Sodium (135-145) mmol/L Potassium (3.3-5.1) mmol/L Chloride (96-108) mmol/L Carbon Dioxide (22-29) mmol/L Anion Gap (12-20) BUN (9-16) mg/dL Creatinine (0.5-1.4) mg/dL Estim Creat Clear Calc Estimated GFR Random Glucose (60-115) mg/dL Calcium (8.4-10.2) mg/dL Magnesium (1.6-2.6) mg/dL Total Bilirubin (0.0-1.0) mg/dL Direct Bilirubin (0.0-0.5) mg/dL AST (5-37) U/L ALT (0-40) U/L Alkaline Phosphatase (39-117) U/L B-Natriuretic Peptide 582 H (<100) pg/mL Total Protein (6.5-8.0) g/dL Albumin (3.5-5.0) g/dL Lipase (8-78) U/L Urine Color Dark Yellow Urine Appearance Clear Urine pH 6.0 (5.0-9.0) Ur Specific [place] 1.020 (1.005-1.025) Urine Protein Negative (Neg-Trace) mg/dL Urine Glucose (UA) Negative (Negative) mg/dL Urine Ketones Negative (Negative) mg/dL Urine Blood Negative (Negative) Urine Nitrite Negative (Negative) Ur Leukocyte Esterase Negative (Negative) Independent Historian Clinical information obtained from an independent historian. History obtained from or confirmed by: Spouse External Record Review External record reviewed: Inpatient record Chronic Conditions Transplant patient with cirrhosis Discharge Plan Discharge Clinical Impression: Hematoma of right lower leg, Liver cirrhosis Patient Disposition: Home, Self-Care Additional Instructions: You have bruising on your lower back, right buttocks and right leg. This is caused by your cirrhosis of the liver, the liver makes clotting factors that help formed blood clot and when the liver is not working as well as should, you can bleed without having and injury. Blood under the skin is called a hematoma and this can be painful. You cannot take Tylenol or ibuprofen when you have liver disease. Take oxycodone 5 mg pills, 1 pill every 4-6 hours as needed for pain. Do not drive or work while taking this medication since they can cause sleepiness. Oxycodone is a narcotic medication that can be addicting. If you are concerned about addiction you can ask the pharmacist for less pills or do not get this pre scription filled. Your liver tests from 06/24/2023 were as follows: AST 102, 148, alkaline phosphatase 273, total bilirubin 6.9. Direct bilirubin 2.5, indirect bilirubin 4.4 Your liver tests today, 07/09/2023 were as follows: AST 75, ALT 82, alk-phos 285, total bilirubin 14.9. Direct bilirubin 3.2, indirect bilirubin 11.7. Your indirect bilirubin is elevated, this can be related to your liver but it can also be related to your transplant medications. Call your transplant team tomorrow to discuss this elevation in the indirect bilirubin to see if anything needs to be done about this increase in indirect bilirubin Apply ice to your buttocks and right leg to help reduce the pain and to stop formation of hematomas (blood under the skin) Please return to the emergency department if your symptoms get worse or if you develop any symptoms that are concerning to you. Prescriptions: New oxycodone 5 mg tablet 5 mg PO Q6H PRN (Reason: pain) Qty: 14 0RF Rx Instructions: Patient may request partial refill; Partial Fill upon patient request. No Action entecavir [Baraclude] 0.5 mg tablet 1 tab PO DAILY magnesium oxide 400 mg magnesium Tablet 800 mg PO DAILY pantoprazole 40 mg tablet,delayed release (DR/EC) 40 mg PO BID insulin aspart U-100 [Novolog FlexPen U-100 Insulin] 100 unit/mL (3 mL) insulin pen See Protocol subcut TID Protocol: Insulin Correction Scale Less than or equal to 110 ---- Give (units): 0 111 to 150 Give (units): 0 151 to 200 Give (units): 2 201 to 250 Give (units): 4 251 to 300 Give (units): 6 301 to 350 Give (units): 8 Greater than 350 Give (units): 10 Call MD if Blood Glucose > : 350 lactulose 10 gram/15 mL solution 30 ml PO TID Xifaxan 550 mg tablet 550 mg PO BID multivitamin Tablet 1 tab PO DAILY cyanocobalamin (vitamin B-12) 1,000 mcg Tablet 1,000 mcg PO DAILY insulin glargine [Lantus Solostar U-100 Insulin] 100 unit/mL (3 mL) insulin pen 20 unit subcut BEDTIME Qty: 15 0RF furosemide 10 mg/mL Solution 80 mg IVPUSH BID@0900,1800 Qty: 0 0RF Protocol: Hold for SBP< HOLD for SBP < : 90 tacrolimus 1 mg Capsule 1 mg PO DAILY@1700 Qty: 0 0RF tacrolimus 1 mg Capsule 1 mg PO DAILY@0800 Qty: 0 0RF Interventions: ED Discharge Assessment Last Done: 07/10/23 00:54 Discharge Date/Time: 07/10/23 00:56
--- NOTE | 2023-07-09 20:27 | MHC.EDTECH ---
PATIENT BLOOD DRAWN AND URINE SAMPLE COLLECTED AND SENT TO LAB .
[2023-07-09 20:30] LABS: Appearance Urine Clear; Color Urine Dark Yellow; Glucose Urine UA Negative (Negative); Leukocyte Esterase Urine Negative (Negative); Nitrite Urine Negative (Negative); Urine Blood Negative (Negative); Urine Ketones Negative (Negative); Urine Protein Negative (Neg-Trace)
[2023-07-09 20:41] LABS: INTERNATIONAL NORM RATIO 1.9 (0.9-1.1)
[2023-07-09 20:46] LABS: Basophils Percent Auto 1.2 % (0-2); Eosinophils Absolute Auto 0.1 X10*3/uL (0.0-0.4); Eosinophils Percent Auto 2.7 % (0-4); Hematocrit 28.7 % (42.0-52.0); Hemoglobin 9.5 g/dl (14.0-18.0); Imm Gran Abs Auto 0.02 X10*3/uL (0.00-0.03); Imm Gran Pct Auto 0.8 % (0.0-0.4); Lymphocytes Absolute Auto 0.4 X10*3/uL (1.2-4.9); Lymphocytes Percent Auto 13.6 % (20-40); MANUAL DIFF FLAG SCAN; Mean Corpuscular HGB Conc 33.1 g/dl (31.0-36.0); Mean Corpuscular Volume 87.5 fL (80.0-98.0); Monocytes Absolute Auto 0.3 X10*3/uL (0.1-1.2); Monocytes Percent Auto 10.5 % (2-11); Neutrophils Absolute Auto 1.8 x10*3/uL (2.0-8.3); Neutrophils Percent Auto 71.2 % (45-73); PLT CLUMP 1; Red Blood Count 3.28 X10*6/uL (4.60-5.80); Red Cell Distribution Width 20.5 % (11.0-16.0); SCAN SMEAR FLAG 1
[2023-07-09 20:53] LABS: Alanine Aminotransferase 82 U/L (0-40); Alkaline Phosphatase 285 U/L (39-117); Anion Gap 13 (12-20); Aspartate Amino Transferase 75 U/L (5-37); Bilirubin Direct 3.2 mg/dL (0.0-0.5); Bilirubin Total 14.9 mg/dL (0.0-1.0); Blood Urea Nitrogen 20 mg/dL (9-16); Calcium 9.4 mg/dL (8.4-10.2); Carbon Dioxide 24 mmol/L (22-29); Chloride 104 mmol/L (96-108); Creatinine Clr Calc Pharmacy 51.2; Estimated Glomerular Filt Rate > 60; Glucose Random 206 mg/dL (60-115); Lipase 30 U/L (8-78); Magnesium 1.7 mg/dL (1.6-2.6); Potassium 3.9 mmol/L (3.3-5.1); Sodium 137 mmol/L (135-145); Total Protein 7.6 g/dL (6.5-8.0)
[2023-07-09 20:55] LABS: B Type Natriuretic Peptide 582 pg/mL (<100)
[2023-07-09 21:04] LABS: White Blood Count 2.6 X10*3/uL (4.8-10.8)
[2023-07-09 21:07] LABS: SLIDE REVIEW VERIFIED
[2023-07-09 22:50] VITALS: BP 145/62; PULSE 96; RESP 18; TEMP 36.9; O2SAT 97
[2023-07-10] MEDS: oxyCODONE HCl Immed Release 5 MG TABLET PO (00:49)
== END 2023-07-10 00:56 | disposition home or self-care (01) ==
PROVIDERS: Physician Assistant; Emergency Provider Emergency Medicine Emergency Medical Services; PCP Internal Medicine
DX: S80.11XA Contusion of right lower leg, initial encounter (principal); R50.9 Fever, unspecified; M25.551 Pain in right hip; K74.3 Primary biliary cirrhosis; X58.XXXA Exposure to other specified factors, initial encounter; Y93.9 Activity, unspecified; Y92.9 Unspecified place or not applicable; Y99.9 Unspecified external cause status; Z79.899 Other long term (current) drug therapy
CPT/HCPCS: 36415; 80048; 80076; 81003; 83690; 83735; 83880; 85025; 85610; 99283; 99284

== ENCOUNTER 2023-07-14 10:04 | Outpatient (REF) | payer MEDICARE, SELFPAY ==
[2023-07-14 10:47] LABS: Basophils Percent Auto 0.5 % (0-2); Eosinophils Absolute Auto 0.1 X10*3/uL (0.0-0.4); Eosinophils Percent Auto 3.1 % (0-4); Hematocrit 27.2 % (42.0-52.0); Imm Gran Abs Auto 0.01 X10*3/uL (0.00-0.03); Imm Gran Pct Auto 0.5 % (0.0-0.4); Lymphocytes Absolute Auto 0.3 X10*3/uL (1.2-4.9); Lymphocytes Percent Auto 14.4 % (20-40); MANUAL DIFF FLAG SCAN; Mean Corpuscular HGB Conc 33.1 g/dl (31.0-36.0); Mean Corpuscular Hemoglobin 29.4 pg (27.0-33.0); Mean Corpuscular Volume 88.9 fL (80.0-98.0); Monocytes Absolute Auto 0.1 X10*3/uL (0.1-1.2); Monocytes Percent Auto 6.7 % (2-11); Neutrophils Absolute Auto 1.5 x10*3/uL (2.0-8.3); Neutrophils Percent Auto 74.8 % (45-73); PLT CLUMP 1; Red Blood Count 3.06 X10*6/uL (4.60-5.80); Red Cell Distribution Width 19.9 % (11.0-16.0); SCAN SMEAR FLAG 1
[2023-07-14 11:06] LABS: Platelet Count 45 X10*3/uL (160-400); White Blood Count 1.9 X10*3/uL (4.8-10.8)
[2023-07-14 11:08] LABS: SLIDE REVIEW VERIFIED
[2023-07-14 11:14] LABS: Alanine Aminotransferase 64 U/L (0-40); Albumin Level 2.6 g/dL (3.5-5.0); Alkaline Phosphatase 234 U/L (39-117); Anion Gap 11 (12-20); Aspartate Amino Transferase 57 U/L (5-37); Bilirubin Total 11.8 mg/dL (0.0-1.0); Blood Urea Nitrogen 19 mg/dL (9-16); Calcium 9.4 mg/dL (8.4-10.2); Carbon Dioxide 23 mmol/L (22-29); Chloride 108 mmol/L (96-108); Estimated Glomerular Filt Rate 59; Glucose Random 158 mg/dL (60-115); Iron 68 mcg/dL (45-160); Magnesium 1.6 mg/dL (1.6-2.6); Percent Iron Saturation 29 % (15-50); Potassium 4.2 mmol/L (3.3-5.1); Sodium 138 mmol/L (135-145); Total Iron Binding Capacity 236 mcg/dL (228-428); Total Protein 6.6 g/dL (6.5-8.0); Unsaturated Iron Binding 168 ug/dL
[2023-07-14 11:29] LABS: Ferritin 67 ng/mL (20-250)
[2023-07-15 10:08] LABS: Tacrolimus Prograf 3.8 NG/ML ((5-20))
== END 2023-07-14 10:05 | disposition home or self-care (01) ==
LOC: HO.LAB 10:04
PROVIDERS: PCP Internal Medicine; Visit Provider Internal Medicine Gastroenterology
DX: D84.9 Immunodeficiency, unspecified (principal); Z94.4 Liver transplant status
CPT/HCPCS: 36415; 80053; 80197; 82728; 83540; 83735; 85025

== ENCOUNTER 2023-07-15 15:12 | Outpatient (REF) | payer MEDICARE, SELFPAY ==
--- NOTE | ~2023-07-15 | XR_ITS ---
EXAMINATIONS: BILATERAL HIPS AND LUMBAR SPINE 2 VIEWS CLINICAL INFORMATION: Additional Information: ORDER STATES LOW BACK PAIN RADIATING DOWN RIGHT LEG AND PELVIC PAIN. COMPARISON: Lumbar spine from 05/26/2023 TECHNIQUE: AP supine neutral and frog-leg lateral views of both hips are provided. AP and lateral views of the lumbosacral spine are provided. FINDINGS: The appearance of the capital femoral epiphyses is symmetric. Both femoral heads are seated within well formed acetabula. The acetabular indices are normal bilaterally. Shenton's lines are intact. Normal mineralization is present. No subluxation is demonstrable on the frog-leg lateral projection. The lumbar vertebra are in normal alignment. Disc heights and vertebral body heights are well-preserved. There are no fractures. FINDINGS: Multiple surgical clip seen in the upper abdomen as well. There is stent in the right upper quadrant and 2 IVC filters present. The lumbar vertebra are in normal alignment. Disc heights and vertebral body heights are well-preserved. There are no fractures. XR/XR hip BI w [id number] IMPRESSION: Unremarkable bilateral hip and lumbosacral spine radiographs. Postsurgical markers as described.
--- NOTE | ~2023-07-15 | XR_ITS ---
EXAMINATIONS: BILATERAL HIPS AND LUMBAR SPINE 2 VIEWS CLINICAL INFORMATION: Additional Information: ORDER STATES LOW BACK PAIN RADIATING DOWN RIGHT LEG AND PELVIC PAIN. COMPARISON: Lumbar spine from 05/26/2023 TECHNIQUE: AP supine neutral and frog-leg lateral views of both hips are provided. AP and lateral views of the lumbosacral spine are provided. FINDINGS: The appearance of the capital femoral epiphyses is symmetric. Both femoral heads are seated within well formed acetabula. The acetabular indices are normal bilaterally. Shenton's lines are intact. Normal mineralization is present. No subluxation is demonstrable on the frog-leg lateral projection. The lumbar vertebra are in normal alignment. Disc heights and vertebral body heights are well-preserved. There are no fractures. FINDINGS: Multiple surgical clip seen in the upper abdomen as well. There is stent in the right upper quadrant and 2 IVC filters present. The lumbar vertebra are in normal alignment. Disc heights and vertebral body heights are well-preserved. There are no fractures. XR/XR lumbar spine 4V min IMPRESSION: Unremarkable bilateral hip and lumbosacral spine radiographs. Postsurgical markers as described.
== END 2023-07-15 15:13 | disposition home or self-care (01) ==
LOC: HO.HHCX 15:12
PROVIDERS: Visit Provider Internal Medicine
DX: M54.50 Low back pain, unspecified (principal); M79.604 Pain in right leg
CPT/HCPCS: 72110; 73521

== ENCOUNTER 2023-08-01 11:13 | Outpatient (REF) | payer MEDICARE, SELFPAY ==
[2023-08-01 13:49] LABS: Anion Gap 12 (12-20); Blood Urea Nitrogen 17 mg/dL (9-16); Calcium 9.3 mg/dL (8.4-10.2); Carbon Dioxide 24 mmol/L (22-29); Chloride 104 mmol/L (96-108); Estimated Glomerular Filt Rate > 60; Glucose Random 197 mg/dL (60-115); Potassium 4.1 mmol/L (3.3-5.1); Sodium 136 mmol/L (135-145)
== END 2023-08-01 11:14 | disposition home or self-care (01) ==
LOC: HO.HHCL 11:13
PROVIDERS: Visit Provider Internal Medicine
DX: K74.69 Other cirrhosis of liver (principal)
CPT/HCPCS: 36415; 80048

== ENCOUNTER 2023-08-14 10:36 | Outpatient (REF) | payer MEDICARE, SELFPAY ==
[2023-08-14 13:32] LABS: Alanine Aminotransferase 115 U/L (0-40); Albumin Level 2.8 g/dL (3.5-5.0); Alkaline Phosphatase 418 U/L (39-117); Anion Gap 10 (12-20); Aspartate Amino Transferase 112 U/L (5-37); Bilirubin Total 9.9 mg/dL (0.0-1.0); Blood Urea Nitrogen 20 mg/dL (9-16); Calcium 9.3 mg/dL (8.4-10.2); Carbon Dioxide 24 mmol/L (22-29); Chloride 107 mmol/L (96-108); Estimated Glomerular Filt Rate 58; Glucose Random 221 mg/dL (60-115); Potassium 4.7 mmol/L (3.3-5.1); Sodium 136 mmol/L (135-145); Total Protein 6.9 g/dL (6.5-8.0)
== END 2023-08-14 10:37 | disposition home or self-care (01) ==
LOC: HO.HHCL 10:36
PROVIDERS: Visit Provider Student in an Organized Health Care Education/Training Program
DX: R60.0 Localized edema (principal)
CPT/HCPCS: 36415; 80053

== ENCOUNTER 2023-08-25 07:30 | Outpatient (REF) | payer MEDICARE, SELFPAY ==
[2023-08-25 09:23] LABS: Basophils Percent Auto 0.6 % (0-2); Eosinophils Absolute Auto 0.1 X10*3/uL (0.0-0.4); Eosinophils Percent Auto 3.3 % (0-4); Hematocrit 28.7 % (42.0-52.0); Hemoglobin 9.1 g/dl (14.0-18.0); Imm Gran Abs Auto 0.01 X10*3/uL (0.00-0.03); Imm Gran Pct Auto 0.6 % (0.0-0.4); Lymphocytes Absolute Auto 0.4 X10*3/uL (1.2-4.9); MANUAL DIFF FLAG SCAN; Mean Corpuscular HGB Conc 31.7 g/dl (31.0-36.0); Mean Corpuscular Hemoglobin 28.4 pg (27.0-33.0); Mean Corpuscular Volume 89.7 fL (80.0-98.0); Monocytes Absolute Auto 0.2 X10*3/uL (0.1-1.2); Monocytes Percent Auto 10.5 % (2-11); Neutrophils Absolute Auto 1.2 x10*3/uL (2.0-8.3); PLT CLUMP 1; SCAN SMEAR FLAG 1
[2023-08-25 10:10] LABS: Alanine Aminotransferase 94 U/L (0-40); Albumin Level 2.6 g/dL (3.5-5.0); Alkaline Phosphatase 368 U/L (39-117); Anion Gap 10 (12-20); Aspartate Amino Transferase 91 U/L (5-37); Bilirubin Total 7.9 mg/dL (0.0-1.0); Blood Urea Nitrogen 22 mg/dL (9-16); Calcium 9.1 mg/dL (8.4-10.2); Carbon Dioxide 23 mmol/L (22-29); Chloride 109 mmol/L (96-108); Estimated Glomerular Filt Rate > 60; Glucose Random 138 mg/dL (60-115); Magnesium 1.7 mg/dL (1.6-2.6); Potassium 4.3 mmol/L (3.3-5.1); Sodium 138 mmol/L (135-145); Total Protein 6.3 g/dL (6.5-8.0)
[2023-08-25 10:13] LABS: White Blood Count 1.8 X10*3/uL (4.8-10.8)
[2023-08-25 10:15] LABS: SLIDE REVIEW VERIFIED
[2023-08-26 09:41] LABS: Tacrolimus Prograf 2.9 NG/ML ((5-20))
== END 2023-08-25 07:31 | disposition home or self-care (01) ==
LOC: HO.LABR 07:30
PROVIDERS: PCP Internal Medicine; Visit Provider Internal Medicine Gastroenterology
DX: D64.9 Anemia, unspecified (principal); Z94.4 Liver transplant status; Z79.899 Other long term (current) drug therapy
CPT/HCPCS: 36415; 80053; 80197; 83735; 85025

== ENCOUNTER 2023-09-04 14:23 | Outpatient (REF) | payer MEDICARE, SELFPAY ==
--- NOTE | ~2023-09-04 | US_ITS ---
EXAMINATION: US VENOUS ULTRASOUND WITH DOPPLER LOWER EXTREMITY, BILATERAL CLINICAL INFORMATION: Bilateral leg edema COMPARISON: Bilateral lower extremity duplex on 06/24/2023 TECHNIQUE: Ultrasound of the deep veins is performed from the hip to the calf with compression sonography and color and pulse Doppler assessment. Spectral analysis with color-flow imaging is performed. FINDINGS: RIGHT: There is normal venous compression and respiratory variation and augmented flow. The visualized common femoral vein, superficial femoral vein, profunda femoral vein, popliteal vein, and the trifurcation region shows no evidence of deep venous thrombosis. There is no significant popliteal fossa cyst. LEFT: There is normal venous compression and respiratory variation and augmented flow. The visualized common femoral vein, superficial femoral vein, profunda femoral vein, popliteal vein, and the trifurcation region shows no evidence of deep venous thrombosis. There is no significant popliteal fossa cyst. Bilateral lower extremity edema. US/US venous duplex LE BI IMPRESSION: No DVT demonstrated in the bilateral lower extremity.
--- NOTE | ~2023-09-04 | XR_ITS ---
EXAMINATION: XR CHEST CLINICAL INFORMATION: Pleural effusion. COMPARISON: None available. TECHNIQUE: 2 views of the chest were obtained. FINDINGS: There is moderate loss of right lung volume there is a soft tissue masslike density in the right lower hemithorax similar to previous CT chest findings 06/10/2023. There is underlying right loculated pleural effusion and atelectasis. The left lung is expanded and clear. Heart size enlarged with normal pulmonary vascularity. No gross bony abnormality seen. XR/XR chest 2V IMPRESSION: Moderate loss of right lung volume with masslike density in the right lower hemithorax similar to previous CT chest findings 06/10/2023. There is underlying loculated right pleural effusion and atelectasis. There is ipsilateral mediastinal shift to the right.
[2023-09-04 17:12] LABS: Basophils Percent Auto 0.7 % (0-2); Eosinophils Absolute Auto 0.1 X10*3/uL (0.0-0.4); Eosinophils Percent Auto 2.3 % (0-4); Hematocrit 29.3 % (42.0-52.0); Hemoglobin 9.4 g/dl (14.0-18.0); Imm Gran Abs Auto 0.01 X10*3/uL (0.00-0.03); Imm Gran Pct Auto 0.3 % (0.0-0.4); Lymphocytes Absolute Auto 0.5 X10*3/uL (1.2-4.9); Lymphocytes Percent Auto 18.1 % (20-40); MANUAL DIFF FLAG SCAN; Mean Corpuscular HGB Conc 32.1 g/dl (31.0-36.0); Mean Corpuscular Hemoglobin 28.7 pg (27.0-33.0); Mean Corpuscular Volume 89.3 fL (80.0-98.0); Monocytes Absolute Auto 0.3 X10*3/uL (0.1-1.2); Monocytes Percent Auto 9.4 % (2-11); Neutrophils Absolute Auto 2.1 x10*3/uL (2.0-8.3); Neutrophils Percent Auto 69.2 % (45-73); PLT CLUMP 1; Red Blood Count 3.28 X10*6/uL (4.60-5.80); Red Cell Distribution Width 15.8 % (11.0-16.0); SCAN SMEAR FLAG 1
[2023-09-04 17:16] LABS: SLIDE REVIEW VERIFIED
[2023-09-04 17:18] LABS: Alanine Aminotransferase 114 U/L (0-40); Albumin Level 2.8 g/dL (3.5-5.0); Alkaline Phosphatase 334 U/L (39-117); Anion Gap 14 (12-20); Aspartate Amino Transferase 100 U/L (5-37); Blood Urea Nitrogen 28 mg/dL (9-16); Calcium 9.8 mg/dL (8.4-10.2); Carbon Dioxide 20 mmol/L (22-29); Chloride 108 mmol/L (96-108); Estimated Glomerular Filt Rate > 60; Glucose Random 232 mg/dL (60-115); Potassium 4.8 mmol/L (3.3-5.1); Sodium 137 mmol/L (135-145); Total Protein 6.8 g/dL (6.5-8.0)
== END 2023-09-04 14:24 | disposition home or self-care (01) ==
LOC: HO.US 14:23
PROVIDERS: PCP Internal Medicine; Visit Provider Internal Medicine
DX: R60.0 Localized edema (principal); R05.1 Acute cough; K76.9 Liver disease, unspecified; J91.8 Pleural effusion in other conditions classified elsewhere
CPT/HCPCS: 36415; 71046; 80053; 85025; 93970

== ENCOUNTER 2023-09-26 15:48 | Outpatient (REF) | payer MEDICARE, SELFPAY ==
[2023-09-26 17:14] LABS: Basophils Percent Auto 0.8 % (0-2); Eosinophils Absolute Auto 0.1 X10*3/uL (0.0-0.4); Eosinophils Percent Auto 2.3 % (0-4); Hematocrit 28.5 % (42.0-52.0); Hemoglobin 9.6 g/dl (14.0-18.0); Imm Gran Abs Auto 0.01 X10*3/uL (0.00-0.03); Imm Gran Pct Auto 0.4 % (0.0-0.4); Lymphocytes Absolute Auto 0.4 X10*3/uL (1.2-4.9); Lymphocytes Percent Auto 14.1 % (20-40); MANUAL DIFF FLAG SCAN; Mean Corpuscular HGB Conc 33.7 g/dl (31.0-36.0); Mean Corpuscular Hemoglobin 29.9 pg (27.0-33.0); Mean Corpuscular Volume 88.8 fL (80.0-98.0); Monocytes Absolute Auto 0.3 X10*3/uL (0.1-1.2); Monocytes Percent Auto 11.3 % (2-11); Neutrophils Absolute Auto 1.8 x10*3/uL (2.0-8.3); Neutrophils Percent Auto 71.1 % (45-73); PLT CLUMP 1; Red Blood Count 3.21 X10*6/uL (4.60-5.80); Red Cell Distribution Width 15.8 % (11.0-16.0); SCAN SMEAR FLAG 1
[2023-09-26 17:22] LABS: Alanine Aminotransferase 119 U/L (0-40); Albumin Level 2.8 g/dL (3.5-5.0); Alkaline Phosphatase 406 U/L (39-117); Anion Gap 11 (12-20); Aspartate Amino Transferase 80 U/L (5-37); Bilirubin Total 13.3 mg/dL (0.0-1.0); Blood Urea Nitrogen 23 mg/dL (9-16); Calcium 9.1 mg/dL (8.4-10.2); Carbon Dioxide 24 mmol/L (22-29); Chloride 107 mmol/L (96-108); Estimated Glomerular Filt Rate > 60; Glucose Random 192 mg/dL (60-115); Potassium 4.5 mmol/L (3.3-5.1); Sodium 137 mmol/L (135-145); Total Protein 6.9 g/dL (6.5-8.0)
[2023-09-26 17:34] LABS: White Blood Count 2.6 X10*3/uL (4.8-10.8)
[2023-09-26 17:36] LABS: SLIDE REVIEW VERIFIED
[2023-10-02 21:23] LABS: Cardiolipin IgG Ab 3.3 GPL-U/mL; Cardiolipin IgM Ab 3.9 MPL-U/mL
== END 2023-09-26 15:49 | disposition home or self-care (01) ==
LOC: HO.LAB 15:48
PROVIDERS: PCP Internal Medicine; Visit Provider Internal Medicine Medical Oncology
DX: D68.61 Antiphospholipid syndrome (principal); D69.6 Thrombocytopenia, unspecified
CPT/HCPCS: 36415; 80053; 85025; 86147

== ENCOUNTER 2023-10-16 00:52 | Inpatient (IN) | payer MEDICARE, SELFPAY ==
[2023-10-16] VITALS (9 sets, daily range): BP systolic 147–192; BP diastolic 60–86; PULSE 59–91; RESP 16–22; TEMP 36.2–36.9; O2SAT 88–100; BMI 23.1
--- NOTE | ~2023-10-16 | XR_ITS ---
EXAMINATION: XR CHEST CLINICAL INFORMATION: Shortness of breath, cough, Covid COMPARISON: 09/04/2023 TECHNIQUE: Frontal view of the chest was obtained. FINDINGS: Lung volumes are symmetric. Persistent small right pleural effusion with adjacent basilar opacity. Subtle haziness also present at the left lung base with possible trace left pleural effusion. No evidence of pneumothorax. Mildly prominent central vasculature. Cardiac silhouette remains enlarged. No acute osseous findings are seen. XR/XR chest 1V IMPRESSION: Persistent small right and possible trace left pleural effusions with adjacent bibasilar opacities, similar to 09/04/2023. Mildly prominent central vasculature. Cardiac silhouette remains enlarged.
--- NOTE | 2023-10-16 01:04 | ED_ITS ---
HPI - General Adult General Chief complaint: General Medical Stated complaint: covid +, weakness Time Seen by Provider: 10/16/23 00:59 Source: patient and family Mode of arrival: EMS Limitations: no limitations History of Present Illness HPI narrative: 73-year-old male with past medical history of cardiolipin antibody syndrome, hepatitis-C, liver cirrhosis, status post liver transplant 2011 at [facility], diabetes, hypertension, status post failure of transplant and cirrhosis in the transplanted liver status post TIPS in 01/16 with recent fluid overload in 06/15 transfer to [facility] comes here for increased cough for last 2 days with shortness of breath saturating 88% at room air tested positive COVID at home. No fever no chills no significant abdominal distention no urinary complaints no chest pain or palpitation Related Data Home Medications Medication Instructions Recorded Confirmed entecavir 0.5 mg tablet (Baraclude) 1 tab PO DAILY 12/22/20 08/26/23 magnesium oxide 800 mg PO DAILY 12/22/20 08/26/23 insulin aspart U-100 100 unit/mL See Protocol subcut TID 06/03/23 08/26/23 (3 mL) subcutaneous pen (Novolog FlexPen U-100 Insulin aspart) lactulose 10 gram/15 mL oral 30 ml PO TID 06/03/23 08/26/23 solution multivitamin 1 tab PO DAILY 06/03/23 08/26/23 pantoprazole 40 mg tablet,delayed 40 mg PO BID 06/03/23 08/26/23 release rifaximin 550 mg tablet (Xifaxan) 550 mg PO BID 06/03/23 08/26/23 calcium carbonate 600 mg-vitamin 1 cap PO BID 08/26/23 08/26/23 D3 12.5 mcg (500 unit) capsule (Calcium 600 with Vitamin D3) Previous Rx's Medication Instructions Recorded insulin glargine 100 unit/mL (3 20 unit (0.2 mL) subcut BEDTIME 06/05/23 mL) subcutaneous pen (Lantus #15 mL Solostar U-100 Insulin) furosemide 10 mg/mL injection 80 mg IVPUSH BID@0900,1800 #0 mL 06/13/23 solution tacrolimus 1 mg capsule, 1 mg PO DAILY@0800 #0 caps 06/13/23 immediate-release tacrolimus 1 mg capsule, 1 mg PO DAILY@1700 #0 caps 06/13/23 immediate-release Allergies Allergy/AdvReac Type Severity Reaction Status Date / Time lisinopril AdvReac Unknown cough Verified 08/26/23 10:29 Review of Systems 2 Review of Systems: Yes all other systems are reviewed and are negative [facility] Past Medical History Medical History Loculated pleural effusion Antiphospholipid antibody syndrome H/O: CVA (cerebrovascular accident) H/O pleural effusion Nephrolithiasis Diabetes HTN (hypertension) Hepatitis C Surgical History Liver transplant recipient History of liver transplant H/O hernia repair History of surgery on arm Hx of colonoscopy Family History Family History Father Prostate cancer Mother Diabetes HTN (hypertension) Social History Household Members: Spouse Housing: House Are you a primary childcare center director to a significant other at home: No Do you presently have visiting nurse or other home services: No Alcohol intake: former Patient Tobacco Use Status: Never used Tobacco Smoked in Last 30 Days: No Use of substances other than those prescribed or required for medical reasons: No Advance Directives: No Advance Directives Information Provided: No service: No Current occupational status: employed Physical Exam ED Vital Signs: Vital Signs - 24 hr 10/16/23 01:27 10/16/23 01:34 Temperature 98.1 F 98.1 F Pulse Rate 91 91 Respiratory Rate 22 H 22 H Blood Pressure 190/73 H 190/73 H Pulse Oximetry 88 L 95 Oxygen Delivery Method Room Air Nasal Cannula BMI result Body Mass Index 23.1 Appearance: Alert. Oriented X3. No acute distress. Frequent dry cough Eyes: Pallor with deep icterus ENT: Pharynx normal. Oral Mucosa moist Neck: Normal inspection. Neck supple. CVS: Normal heart rate and rhythm. Pulses normal. Respiratory: No respiratory distress. Equal air entry bilateral, no wheezing/rales/rhonchi Abdomen: Soft and nontender. Bowel sounds are present, no mass palpable, no CVA tenderness Skin: Skin warm and dry. Deep icteric Normal skin turgor. Extremities: No lower extremity edema. No calf tenderness Neuro: Oriented X 3. No motor deficit. No sensory deficit.No cerebellar signs , cranial nerves II-XII intact Medications Administered Discontinued Medications Generic Name Dose Route Start Last Admin Trade Name Mayur PRN Reason Stop Dose Admin Guaifenesin/Codeine Phosphate 10 ml 10/16/23 02:53 10/16/23 03:17 Guaifen/Codeine Sf 200/20/10ml 10 Ml Liquid PO 10/16/23 02:54 10 ml ONCE ONE Administration Magnesium Sulfate 2 gm in 50 mls @ 150 mls/hr 10/16/23 02:51 10/16/23 03:17 Magnesium Sulfate/H2o IV 10/16/23 03:10 150 mls/hr ONCE ONE Administration Medical Decision Making Medical Decision Making [facility] Narrative: Patient hypoxic with 88% on room air with history of COVID and chronic liver disease will admit patient for supportive treatment Differential Diagnosis Differential Diagnoses: The differential diagnosis associated with the presentation includes COVID pneumonia/CHF/pleural effusion Admission/Observation Consideration of admission/observation: Escalation of care including admission/observation considered Consult Healthcare Provider Management of the patient was discussed with: Hospitalist Lab Data [facility] Lab Attestation statement: I reviewed the patient's lab results. 10/16/23 01:54 10/16/23 01:54 Labs: Lab Results 10/16/23 Range/Units 01:54 WBC 2.6 L (4.8-10.8) X10*3/uL RBC 3.08 L (4.60-5.80) X10*6/uL Hgb 9.1 L (14.0-18.0) g/dl Hct 27.8 L (42.0-52.0) % MCV 90.3 (80.0-98.0) fL MCH 29.5 (27.0-33.0) pg MCHC 32.7 (31.0-36.0) g/dl RDW 15.8 (11.0-16.0) % Plt Count Not Reportable MPV Not Reportable Immature Gran % (Auto) 0.8 H (0.0-0.4) % Neut % (Auto) 70.4 (45-73) % Lymph % (Auto) 10.6 L (20-40) % [place] % (Auto) 15.9 H (2-11) % Eos % (Auto) 1.5 (0-4) % Baso % (Auto) 0.8 (0-2) % Lymph # (Auto) 0.3 L (1.2-4.9) X10*3/uL [place] # (Auto) 0.4 (0.1-1.2) X10*3/uL Eos # (Auto) 0.0 (0.0-0.4) X10*3/uL Baso # (Auto) 0.0 (0.0-0.2) X10*3/uL Abs Immat Gran (auto) 0.02 (0.00-0.03) X10*3/uL Absolute Neuts (auto) 1.9 L (2.0-8.3) x10*3/uL Absolute Nucleated RBC 0.000 (0.0-0.012) X10*3/uL Nucleated RBC % (auto) 0.0 (0.0-0.2) /100WBC Smear Tech's Comments VERIFIED PT 24.9 H (11.1-13.3) SEC INR 2.0 H (0.9-1.1) Sodium 137 (135-145) mmol/L Potassium 4.9 (3.3-5.1) mmol/L Chloride 108 (96-108) mmol/L Carbon Dioxide 21 L (22-29) mmol/L Anion Gap 13 (12-20) BUN 20 H (9-16) mg/dL Creatinine 1.07 (0.5-1.4) mg/dL Estim Creat Clear Calc 53.4 Estimated GFR > 60 Random Glucose 179 H (60-115) mg/dL Lactic Acid 2.1 H* (0.5-2.0) mmol/L Calcium 9.6 (8.4-10.2) mg/dL Magnesium 1.4 L* (1.6-2.6) mg/dL Total Bilirubin 19.3 H (0.0-1.0) mg/dL AST 79 H (5-37) U/L ALT 88 H (0-40) U/L Alkaline Phosphatase 238 H (39-117) U/L Ammonia 83 H (13-55) umol/L B-Natriuretic Peptide 1425 H (<100) pg/mL Total Protein 6.6 (6.5-8.0) g/dL Albumin 2.7 L (3.5-5.0) g/dL Urine Color Dark Yellow Urine Appearance Clear Urine pH 8.0 (5.0-9.0) Ur Specific [place] 1.010 (1.005-1.025) Urine Protein Negative (Neg-Trace) mg/dL Urine Glucose (UA) Negative (Negative) mg/dL Urine Ketones Negative (Negative) mg/dL Urine Blood Moderate (2+) H (Negative) Urine Nitrite Negative (Negative) Ur Leukocyte Esterase Negative (Negative) Urine RBC >20 H (0-2) /HPF Urine WBC 0-5 (0-5) /HPF Ur Squamous Epith Cells 0-2 (0-2) /HPF Urine Bacteria None Seen (None Seen) Hyaline Casts 0-2 (0-2) /LPF Independent Interpretation I performed an independent interpretation of an: Plain X-Ray Radiology Impression Discussion of test interpretation with radiology: I have reviewed the radiologist's reading. Radiologist Impression: XR/XR chest 1V IMPRESSION: Persistent small right and possible trace left pleural effusions with adjacent bibasilar opacities, similar to 09/04/2023. Mildly prominent central vasculature. Cardiac silhouette remains enlarged. Discharge Plan Discharge Clinical Impression: COVID-19, Chronic liver failure without hepatic coma, Congestive heart failure, Acute hypoxemic respiratory failure Patient Disposition: Admitted As Inpatient
--- NOTE | 2023-10-16 01:22 | ECG_ITS ---
Test Reason : SOB Blood Pressure : / mmHG Vent. Rate : 083 BPM Atrial Rate : 083 BPM P-R Int : 172 ms QRS Dur : 086 ms QT Int : 352 ms P-R-T Axes : 034 006 064 degrees QTc Int : 413 ms Normal sinus rhythm Normal ECG When compared with ECG of 02-JUN-2023 21:56, Septal infarct is now Present Nonspecific T wave abnormality no longer evident in Inferior leads Referred By: Yuriy Oliveros Electronically Signed By:SANDRA CROCKER MD
--- NOTE | 2023-10-16 01:36 | PC.NURSE ---
Pt came in via ems with incontinence. Chief complaint cough, sob, fatigue, covid-19 + Pt ca&ox4, sat of 88 on room air. Pt reporting sob and placed on 1L of 02 NC. Pt cleaned and changed into hospital attire. Pts family reports giving him Lantus @ 11pm and OTC cough medicine. Pt placed on bedside monitor. Plan of care ongoing.
[2023-10-16 02:01] LABS: Eosinophils Percent Auto 1.5 % (0-4); Imm Gran Abs Auto 0.02 X10*3/uL (0.00-0.03); Imm Gran Pct Auto 0.8 % (0.0-0.4); MANUAL DIFF FLAG SCAN; Neutrophils Absolute Auto 1.9 x10*3/uL (2.0-8.3); PLT CLUMP 1; Red Cell Distribution Width 15.8 % (11.0-16.0); SCAN SMEAR FLAG 1
[2023-10-16 02:02] LABS: Appearance Urine Clear; Color Urine Dark Yellow; Glucose Urine UA Negative (Negative); Leukocyte Esterase Urine Negative (Negative); Nitrite Urine Negative (Negative); UMIC TRIGGER UACC YES; Urine Blood Moderate (2+) (Negative); Urine Ketones Negative (Negative); Urine Protein Negative (Neg-Trace)
[2023-10-16 02:03] LABS: Basophils Percent Auto 0.8 % (0-2); Hematocrit 27.8 % (42.0-52.0); Hemoglobin 9.1 g/dl (14.0-18.0); Lymphocytes Absolute Auto 0.3 X10*3/uL (1.2-4.9); Lymphocytes Percent Auto 10.6 % (20-40); Mean Corpuscular HGB Conc 32.7 g/dl (31.0-36.0); Mean Corpuscular Hemoglobin 29.5 pg (27.0-33.0); Mean Corpuscular Volume 90.3 fL (80.0-98.0); Monocytes Absolute Auto 0.4 X10*3/uL (0.1-1.2); Monocytes Percent Auto 15.9 % (2-11); Neutrophils Percent Auto 70.4 % (45-73); Red Blood Count 3.08 X10*6/uL (4.60-5.80)
[2023-10-16 02:08] LABS: Prothrombin Time 24.9 SEC (11.1-13.3)
[2023-10-16 02:09] LABS: Ammonia 83 umol/L (13-55)
[2023-10-16 02:21] LABS: PLT ABN DIST 1
[2023-10-16 02:22] LABS: White Blood Count 2.6 X10*3/uL (4.8-10.8)
[2023-10-16 02:24] LABS: Alanine Aminotransferase 88 U/L (0-40); Albumin Level 2.7 g/dL (3.5-5.0); Alkaline Phosphatase 238 U/L (39-117); Anion Gap 13 (12-20); Aspartate Amino Transferase 79 U/L (5-37); Bilirubin Total 19.3 mg/dL (0.0-1.0); Blood Urea Nitrogen 20 mg/dL (9-16); Calcium 9.6 mg/dL (8.4-10.2); Carbon Dioxide 21 mmol/L (22-29); Chloride 108 mmol/L (96-108); Creatinine Clr Calc Pharmacy 53.4; Estimated Glomerular Filt Rate > 60; Glucose Random 179 mg/dL (60-115); Lactic Acid 2.1 mmol/L (0.5-2.0); Magnesium 1.4 mg/dL (1.6-2.6); Potassium 4.9 mmol/L (3.3-5.1); Sodium 137 mmol/L (135-145); Total Protein 6.6 g/dL (6.5-8.0)
[2023-10-16 02:25] LABS: SLIDE REVIEW VERIFIED
[2023-10-16 02:26] LABS: Bacteria Urine None Seen (None Seen); Hyaline Casts Urine 0-2 /LPF (0-2); RBC Urine >20 /HPF (0-2); Squamous Epithelial Cell Urine 0-2 /HPF (0-2); WBC Urine 0-5 /HPF (0-5)
--- NOTE | 2023-10-16 02:29 | PC.NURSE ---
Provider Anwer notified of critical labs Mag 1.4 & Lactic of 2.1. Plan of care ongoing.
[2023-10-16 02:41] LABS: B Type Natriuretic Peptide 1425 pg/mL (<100)
[2023-10-16] MEDS: guaiFEN/Codeine SF 200/20/10ML 10 ML LIQUID PO (03:17)
[2023-10-16] MEDS: Magnesium Sulfate/H2O 2 GM/50 ML PIGGYBACK IV (03:17)
[2023-10-16 03:58] LABS: Reflex Lactate? Lactic Acid Added
[2023-10-16] MEDS: Furosemide 20 MG/2 ML VIAL IVPUSH (04:09)
--- NOTE | 2023-10-16 04:12 | PC.NURSE ---
Pt ca&ox4, no signs of distress. This RN called resp for tx. Pt medicated per jan. labs drawn Family member at bedside.
--- NOTE | 2023-10-16 04:14 | PC.NURSE ---
Resp with pt. Plan of care ongoing.
[2023-10-16] MEDS: Albuterol/Iprat 2.5/0.5MG 3 ML AMPUL.NEB INHALE (04:16)
[2023-10-16 04:37] LABS: ~Lactic Acid-LAB USE ONLY 1.3 mmol/L (0.5-2.0)
--- NOTE | 2023-10-16 04:51 | P.HPHOSP_ITS ---
History of Present Illness Date of Service: 10/16/23 Chief Complaint: cough 73-year-old male with past medical history of cardiolipin antibody syndrome, hepatitis-C / liver cirrhosis status post liver transplant in 2010 at [facility], diabetes, hypertension, comes into the hospital with complaints of cough and shortness of breath. Tested positive for COVID at home today. Patient's is at bedside was helped with the history. Patient and were Persian- speaking, history is obtained with the help of an tractor mechanic apprentice. Patient reports that he started feeling weak, cough, shortness of breath about 2 days ago, tested positive for COVID at home. Denies any chest pain, no abdominal pain, no nausea or vomiting, reports compliance with his lactulose and has about 3-4 bowel movements a day. Has had no urinary symptoms and no lower extremity edema. Denies any headache or change in vision. no fever or chills. 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 Waiting for discharge summary from [facility] On arrival to the ED patient found to be hypoxic with 88% on room air, temperature of 98.1 degrees, blood pressure normal 190/73 improved to 140/60s, Labs are significant for WBC count of 2.6 which is chronically low, hemoglobin of 9.1, hematocrit 27.8, chills around his baseline, PT of 284.9, INR of 2.0, BUN of 20, creatinine of 1.07, lactic acid of 2.1, magnesium of 1.4, total bili of 19.3, AST of 79, ALT of 88 which is slightly lower than his previous numbers in September, albumin of 2.7, UA negative for acute infection Chest x-ray shows pleural effusion with bilateral bibasilar opacities similar to previous imaging from August patient will be admitted for further management Review of Systems 2 Review of Systems: Yes all other systems are reviewed and are negative ON LICENSE OF [facility] Medical History Loculated pleural effusion Antiphospholipid antibody syndrome H/O: CVA (cerebrovascular accident) H/O pleural effusion Nephrolithiasis Diabetes HTN (hypertension) Hepatitis C Family History Father Prostate cancer Mother Diabetes HTN (hypertension) Surgical History Liver transplant recipient History of liver transplant H/O hernia repair History of surgery on arm Hx of colonoscopy Household Members: Spouse Housing: House Are you a primary career development counselor to a significant other at home: No Do you presently have visiting nurse or other home services: No Alcohol intake: former Patient Tobacco Use Status: Never used Tobacco Smoked in Last 30 Days: No Use of substances other than those prescribed or required for medical reasons: No Advance Directives: No Advance Directives Information Provided: No service: No Current occupational status: employed Meds Allergies Allergy/AdvReac Type Severity Reaction Status Date / Time lisinopril AdvReac Unknown cough Verified 08/26/23 10:29 Home Medications Medication Instructions Recorded Confirmed Last Taken Type entecavir 0.5 mg tablet (Baraclude) 1 tab PO DAILY 12/22/20 10/16/23 10/15/23 History 1 magnesium oxide 800 mg PO DAILY 12/22/20 10/16/23 10/15/23 History insulin aspart U-100 100 unit/mL See Protocol subcut TID 06/03/23 10/16/23 10/15/23 History (3 mL) subcutaneous pen (Novolog FlexPen U-100 Insulin aspart) lactulose 10 gram/15 mL oral 30 ml PO TID 06/03/23 10/16/23 10/15/23 History solution multivitamin 1 tab PO DAILY 06/03/23 10/16/23 06/02/23 History pantoprazole 40 mg tablet,delayed 40 mg PO BID 06/03/23 10/16/23 10/15/23 History release rifaximin 550 mg tablet (Xifaxan) 550 mg PO BID 06/03/23 10/16/23 10/15/23 History calcium carbonate 600 mg-vitamin 1 cap PO BID 08/26/23 10/16/23 Unknown History D3 12.5 mcg (500 unit) capsule (Calcium 600 with Vitamin D3) furosemide 10 mg/mL injection 40 mg IVPUSH Q OTHER DAY 10/16/23 10/16/23 10/15/23 History solution tacrolimus 1 mg capsule, 0.5 mg PO DAILY@1700 10/16/23 10/16/23 10/15/23 History immediate-release Physical Exam 2 Vital Signs and Narrative: Vital Signs: Last Vital Signs Temp 98.4 F 10/16/23 04:07 Pulse 84 10/16/23 04:20 Resp 16 10/16/23 04:20 BP 147/60 H 10/16/23 04:07 Pulse Ox 98 10/16/23 04:07 O2 Del Method Nasal Cannula 10/16/23 04:07 O2 Flow Rate 1 10/16/23 04:07 BMI result Body Mass Index 23.1 Const: General: cooperative and no acute distress O rientation/consciousness: patient oriented x3 Eyes: General: appearance normal, both eyes and all related structures Resp: Effort & Inspection: normal respiratory effort Auscultation: clear to auscultation bilaterally Cardio: Rate: regular rate Rhythm: regular rhythm GI: Other: abdomen is soft, nontender, no distension Palpation (GI): Soft to palpation Auscultation: normal bowel sounds Skin: Other: jaundice Neuro: General: patient oriented x3 Cognition (Neuro): normal cognition Extrem: General: Yes normal to inspection and Yes no pedal edema Results Labs 10/16/23 01:54 10/16/23 01:54 Labs: Laboratory Results - last 24 hr 10/16/23 10/16/23 01:54 04:21 MCV 90.3 MCH 29.5 MCHC 32.7 RDW 15.8 Plt Count Not Reportable MPV Not Reportable Immature Gran % (Auto) 0.8 H Neut % (Auto) 70.4 Lymph % (Auto) 10.6 L [place] % (Auto) 15.9 H Eos % (Auto) 1.5 Baso % (Auto) 0.8 Lymph # (Auto) 0.3 L [place] # (Auto) 0.4 Eos # (Auto) 0.0 Baso # (Auto) 0.0 Abs Immat Gran (auto) 0.02 Absolute Neuts (auto) 1.9 L Absolute Nucleated RBC 0.000 Nucleated RBC % (auto) 0.0 Smear Tech's Comments VERIFIED PT 24.9 H INR 2.0 H Anion Gap 13 Estim Creat Clear Calc 53.4 Estimated GFR > 60 Random Glucose 179 H Lactic Acid 2.1 H* Lactic Acid F/U @ 2Hr 1.3 Calcium 9.6 Magnesium 1.4 L* Total Bilirubin 19.3 H AST 79 H ALT 88 H Alkaline Phosphatase 238 H Ammonia 83 H B-Natriuretic Peptide 1425 H Total Protein 6.6 Albumin 2.7 L Urine Color Dark Yellow Urine Appearance Clear Urine pH 8.0 Ur Specific [place] 1.010 Urine Protein Negative Urine Glucose (UA) Negative Urine Ketones Negative Urine Blood Moderate (2+) H Urine Nitrite Negative Ur Leukocyte Esterase Negative Urine RBC >20 H Urine WBC 0-5 Ur Squamous Epith Cells 0-2 Urine Bacteria None Seen Hyaline Casts 0-2 Imaging Radiologist's Impressions: Impressions Chest X-Ray 10/16/23 02:05 IMPRESSION: Persistent small right and possible trace left pleural effusions with adjacent bibasilar opacities, similar to 09/04/2023. Mildly prominent central vasculature. Cardiac silhouette remains enlarged. Assessment and Plan (1) Acute hypoxemic respiratory failure: Status: Acute (2) Congestive heart failure: Status: Acute (3) Chronic liver failure without hepatic coma: Status: Acute (4) COVID-19: Status: Acute (5) Bilateral pleural effusion: Status: Acute (6) Hyperammonemia: Status: Acute Plan this is a 73-year-old male with past medical history of liver transplant secondary to hepatitis-C and liver cirrhosis comes into the hospital with complaints of cough, shortness of breath found to be hypoxic # acute hypoxic respiratory failure /COVID-19 infection - possibly multifactorial in the setting of volume overload with an elevated BNP as well as acute COVID infection - chest x-ray showing bilateral pleural effusion which seem to be chronic - has an elevated BNP of 1400 - at this time will start him on IV Lasix, and dexamethasone 6 mg daily - monitor respiratory status # acute congestive heart failure - no history of CHF, with the last echo showing ejection fraction of 60% with no evidence of diastolic dysfunction - has elevated BNP and pleural effusions on x-ray - this time will start on IV Lasix, strict I&O, low-sodium diet, daily weight - will obtain echocardiogram and cardiology consult # chronic liver failure without hepatic coma - history of liver cirrhosis status post liver transplant - LFT slightly better than previous numbers, but does have an elevated bilirubin significantly higher than his baseline - at this time will continue lactulose, dexamethasone, GI consulted, but according to his you mass told him that they will not be doing anything further for him, will continue his entecavir and tacrolimus # hyperammonemia - no encephalopathy - continue lactulose with a goal of BM 3-4 times daily and Xifaxan DVT prophylaxis: Heparin subQ given patient's acute hypoxic respiratory failure patient require minimum 2 nights inpatient hospital stay for further management and monitoring Quality Stroke Does the patient have a stroke diagnosis?: No VTE Prior VTE?: No VTE Risk Level:: Medical - moderate - high VTE Device Contraindication: Treatment Not Indicated VTE Drug Contraindication: N/A - Med Ordered
[2023-10-16] MEDS: Heparin Sodium,Porcine 5,000 UNIT/ML VIAL 5000 UNIT SUBCUT ×2 (05:30→16:02)
[2023-10-16] MEDS: Lactulose 20 GM/30 ML SOLUTION 30 GM PO ×3 (05:33→21:49)
[2023-10-16 05:56] LABS: SCAN SMEAR FLAG 1
[2023-10-16 05:57] LABS: Basophils Percent Auto 0.7 % (0-2); Eosinophils Percent Auto 1.1 % (0-4); Hematocrit 25.8 % (42.0-52.0); Hemoglobin 8.6 g/dl (14.0-18.0); Imm Gran Abs Auto 0.02 X10*3/uL (0.00-0.03); Imm Gran Pct Auto 0.7 % (0.0-0.4); Lymphocytes Absolute Auto 0.3 X10*3/uL (1.2-4.9); Lymphocytes Percent Auto 11.4 % (20-40); MANUAL DIFF FLAG SCAN; Mean Corpuscular HGB Conc 33.3 g/dl (31.0-36.0); Mean Corpuscular Hemoglobin 30.3 pg (27.0-33.0); Mean Corpuscular Volume 90.8 fL (80.0-98.0); Monocytes Absolute Auto 0.3 X10*3/uL (0.1-1.2); Monocytes Percent Auto 12.1 % (2-11); Neutrophils Absolute Auto 2.1 x10*3/uL (2.0-8.3); PLT CLUMP 1; Red Blood Count 2.84 X10*6/uL (4.60-5.80); Red Cell Distribution Width 15.9 % (11.0-16.0)
[2023-10-16 05:59] LABS: Alanine Aminotransferase 80 U/L (0-40); Albumin Level 2.4 g/dL (3.5-5.0); Alkaline Phosphatase 191 U/L (39-117); Anion Gap 11 (12-20); Aspartate Amino Transferase 67 U/L (5-37); Bilirubin Total 17.8 mg/dL (0.0-1.0); Blood Urea Nitrogen 18 mg/dL (9-16); Calcium 9.3 mg/dL (8.4-10.2); Carbon Dioxide 24 mmol/L (22-29); Chloride 108 mmol/L (96-108); Estimated Glomerular Filt Rate > 60; Glucose Random 164 mg/dL (60-115); Potassium 4.5 mmol/L (3.3-5.1); Sodium 138 mmol/L (135-145)
[2023-10-16 06:14] LABS: PLT ABN DIST 1; White Blood Count 2.8 X10*3/uL (4.8-10.8)
--- NOTE | 2023-10-16 07:20 | PHA.MEDREC ---
Pharmacy Consult ? Medication Reconciliation Pharmacy has completed the medication reconciliation. Reviewed med rec done by nursing
[2023-10-16 08:18] LABS: Glucose, Whole Blood 146 mg/dL (60-115)
[2023-10-16] MEDS: Multivitamin TABLET 1 TAB PO (08:53)
[2023-10-16] MEDS: rifAXIMin 550 MG TABLET PO ×2 (08:54→21:43)
[2023-10-16] MEDS: Magnesium Oxide 400 MG TABLET 800 MG PO (08:54)
[2023-10-16] MEDS: Calcium + Vitamin D 250 MG TABLET 500 MG PO ×2 (08:54→21:43)
[2023-10-16] MEDS: dexAMETHasone sod phosphate 4 MG/ML VIAL 6 MG IVPUSH (08:56)
[2023-10-16] MEDS: Furosemide 40 MG/4 ML VIAL IVPUSH (08:56)
[2023-10-16] MEDS: 0.9 % Sodium Chloride Flush 3 ML SYRINGE IVFLUSH ×2 (08:57→16:01)
--- NOTE | 2023-10-16 10:28 | PM.EVENT ---
Event Note Date of Service: 10/16/23 Event Note: Seen and evaluated this morning Complaining of cough and difficulties breathing On O2 supplement no significant ascites tolerating Lasix Havin bowel movements Pending GI eval Time Spent With Patient Time: Total time managing care of this patient today ____ minutes.
--- NOTE | 2023-10-16 10:51 | P.CNGI_ITS ---
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 Patient presents this admission with 2-3 d of weakness, non productive cough and shortness of breath. and subsequently found to be pos for covid. Denies any chest pain, no abdominal pain, no nausea or vomiting. No urinary symptoms and no lower extremity edema. Denies any headache or change in vision. no fever or chills. Patient was transferred from the [facility] hospital in May and sent to [facility] for acute hepatitis and liver failure, but apparently not a candidate for re transplant due to his co morbidities and age. Labs: WBC count of 2.6 which is chronically low, hemoglobin of 9.1, hematocrit 27.8, INR of 2.0, BUN of 20, creatinine of 1.07, lactic acid of 2.1, magnesium of 1.4, total bili of 19.3, AST of 79, ALT of 88 which is slightly lower than his previous numbers in September, albumin of 2.7, UA negative for acute infection Chest x-ray shows pleural effusion with bilateral bibasilar opacities Review of Systems 2 Review of Systems: Constitutional : No Weight loss, + Fever, No Chills ENT/Mouth : No sore throat, No Rhinorrhea Eyes: No Swelling, No Redness Cardiovascular : No Chest Pain, + SOB, No Edema Respiratory : + Cough, No Sputum, No Wheezing Gastrointestinal : see HPI Genitourinary : NO Dysuria, No Urinary Frequency, No Hematuria, No Urgency Musculoskeletal : No joint pain, No Myalgias, No Joint Swelling Skin : No Skin Lesions, No rash Neuro : No Weakness, No Numbness, No Dizziness, No Headache Psych : No Anxiety/Panic, No Depression Heme/Lymph: No Bruising, No Lymphadenopathy Endocrine : No Polyuria, No Polydipsia All other systems reviewed and are negative. [facility] Past Medical History Medical History Loculated pleural effusion Antiphospholipid antibody syndrome H/O: CVA (cerebrovascular accident) H/O pleural effusion Nephrolithiasis Diabetes HTN (hypertension) Hepatitis C Family History Family History Father Prostate cancer Mother Diabetes HTN (hypertension) Surgical History Surgical History Liver transplant recipient History of liver transplant H/O hernia repair History of surgery on arm Hx of colonoscopy Social History Household Members: Spouse Housing: House Are you a primary childcare attendant to a significant other at home: No Do you presently have visiting nurse or other home services: No Alcohol intake: former Patient Tobacco Use Status: Never used Tobacco service: No Current occupational status: employed Meds Allergies Allergy/AdvReac Type Severity Reaction Status Date / Time lisinopril AdvReac Unknown cough Verified 08/26/23 10:29 Active Medications: Current Medications Calcium Carbonate/Cholecalciferol (Calcium + Vitamin D 250 Mg Tablet) 500 mg PO BID [facility] Last Admin: 10/16/23 08:54 Dose: 500 mg Dexamethasone Sodium Phosphate (Dexamethasone Sod Phosphate 4 Mg/Ml Vial) 6 mg IVPUSH DAILY [facility] Last Admin: 10/16/23 08:56 Dose: 6 mg Dextrose (Dextrose 50 % 25 Gm/50 Ml Syringe) 25 gm IVPUSH Q15M PRN; Protocol PRN Reason: per Hypoglycemia Standing Ord. Furosemide (Furosemide 40 Mg/4 Ml Vial) 40 mg IVPUSH DAILY [facility]; Protocol Last Admin: 10/16/23 08:56 Dose: 40 mg Glucose (Glucose Gel 15 Gm Gel..Gram.) 15 gm PO Q15M PRN; Protocol PRN Reason: per Hypoglycemia Standing Ord. Heparin Sodium (Porcine) (Heparin Sodium,Porcine 5,000 Unit/Ml Vial) 5,000 unit SUBCUT Q12H [facility] Last Admin: 10/16/23 05:30 Dose: 5,000 unit Insulin Glargine (Insulin Glargine,Hum.Rec.Anlog 100 Unit/Ml 10 Ml Vial) 20 unit SUBCUT BEDTIME [facility] Insulin Human Lispro (Insulin Lispro 100 Unit/Ml 3 Ml Vial) 0 unit SUBCUT QIDACHS [facility]; Protocol Last Admin: 10/16/23 08:20 Dose: Not Given Lactulose (Lactulose 20 Gm/30 Ml Solution) 30 gm PO TID [facility] Last Admin: 10/16/23 08:53 Dose: Not Given Magnesium Oxide (Magnesium Oxide 400 Mg Tablet) 800 mg PO DAILY [facility] Last Admin: 10/16/23 08:54 Dose: 800 mg Multivitamins/Vitamin C (Multivitamin Tablet) 1 tab PO DAILY [facility] Last Admin: 10/16/23 08:53 Dose: 1 tab Non-Formulary Medication (Entecavir [Baraclude]) 1 tab PO DAILY [facility] Omeprazole (Omeprazole 20 Mg Capsule.Dr) 20 mg PO BID@0630,1630 [facility] Ondansetron HCl (Ondansetron Hcl 4 Mg/2 Ml Vial) 4 mg IVPUSH Q8H PRN PRN Reason: Nausea and Vomiting Rifaximin (Rifaximin 550 Mg Tablet) 550 mg PO BID [facility] Last Admin: 10/16/23 08:54 Dose: 550 mg Sodium Chloride (0.9 % Sodium Chloride Flush 3 Ml Syringe) 3 ml IVFLUSH QSHIFT [facility] Last Admin: 10/16/23 08:57 Dose: 3 ml Tacrolimus (Tacrolimus 0.5 Mg Capsule) 0.5 mg PO DAILY@1700 [facility] Home Medications Medication Instructions Recorded Confirmed Last Taken Type entecavir 0.5 mg tablet (Baraclude) 1 tab PO DAILY 12/22/20 10/16/23 10/15/23 History 1 magnesium oxide 800 mg PO DAILY 12/22/20 10/16/23 10/15/23 History insulin aspart U-100 100 unit/mL See Protocol subcut TID 06/03/23 10/16/23 10/15/23 History (3 mL) subcutaneous pen (Novolog FlexPen U-100 Insulin aspart) lactulose 10 gram/15 mL oral 30 ml PO TID 06/03/23 10/16/23 10/15/23 History solution multivitamin 1 tab PO DAILY 06/03/23 10/16/23 06/02/23 History pantoprazole 40 mg tablet,delayed 40 mg PO BID 06/03/23 10/16/23 10/15/23 History release rifaximin 550 mg tablet (Xifaxan) 550 mg PO BID 06/03/23 10/16/23 10/15/23 History calcium carbonate 600 mg-vitamin 1 cap PO BID 08/26/23 10/16/23 Unknown History D3 12.5 mcg (500 unit) capsule (Calcium 600 with Vitamin D3) furosemide 10 mg/mL injection 40 mg IVPUSH Q OTHER DAY 10/16/23 10/16/23 10/15/23 History solution tacrolimus 1 mg capsule, 0.5 mg PO DAILY@1700 10/16/23 10/16/23 10/15/23 History immediate-release Physical Exam 2 Vital Signs: Vital Signs: Last Vital Signs Temp 98.2 F 10/16/23 07:59 Pulse 75 10/16/23 07:59 Resp 20 10/16/23 07:59 BP 165/68 H 10/16/23 07:59 Pulse Ox 100 10/16/23 07:59 O2 Del Method Nasal Cannula 10/16/23 07:59 O2 Flow Rate 1.5 10/16/23 07:59 BMI result Body Mass Index 23.1 EXAM: GENERAL: The patient is well developed and nontoxic. VITAL SIGNS:see workflow HEENT: Nonicteric sclerae, PERRLA, EOMI. Oropharynx clear. Moist mucous membranes. Conjunctivae appear well perfused. No thyroid mass. CHEST: Chest wall is nontender. HEART: Regular rate and rhythm without murmurs. LUNGS: Clear to auscultation bilaterally- but reduced air entry ABDOMEN: Soft, positive bowel sounds, tender RUQ, no organomegaly.no flank tenderness SKIN: No rash, no excessive bruising, petechiae, or purpura. NEUROLOGIC: Cranial nerves II-XII intact without motor/sensory deficit. Const: General: alert and awake HEENT: Head: Yes normocephalic and Yes atraumatic Neck: Neck: Yes supple Resp: Auscultation: diminished lung sounds Cardio: Heart sounds: S1 normal heart sound present and S2 normal heart sound present GI: Palpation (GI): Soft to palpation and nontender Extrem: Right upper extremity: edema Psych: Appearance: grossly normal Results Labs 10/16/23 05:28 10/16/23 05:28 Labs: Short CBC 10/16/23 10/16/23 Range/Units 01:54 05:28 WBC 2.6 L 2.8 L (4.8-10.8) X10*3/uL Hgb 9.1 L 8.6 L (14.0-18.0) g/dl Hct 27.8 L 25.8 L (42.0-52.0) % Plt Count Not Reportable Not Reportable BMP 10/16/23 10/16/23 01:54 05:28 Sodium 137 138 Potassium 4.9 4.5 Chloride 108 108 Carbon Dioxide 21 L 24 BUN 20 H 18 H Creatinine 1.07 1.04 Calcium 9.6 9.3 Liver Function 10/16/23 10/16/23 Range/Units 01:54 05:28 Total Bilirubin 19.3 H 17.8 H (0.0-1.0) mg/dL AST 79 H 67 H (5-37) U/L ALT 88 H 80 H (0-40) U/L Alkaline Phosphatase 238 H 191 H (39-117) U/L Albumin 2.7 L 2.4 L (3.5-5.0) g/dL Urine 10/16/23 Range/Units 01:54 Urine Color Dark Yellow Urine Appearance Clear Urine pH 8.0 (5.0-9.0) Ur Specific [place] 1.010 (1.005-1.025) Urine Protein Negative (Neg-Trace) mg/dL Urine Glucose (UA) Negative (Negative) mg/dL Imaging Chest x-ray: Attestation: I personally reviewed and interpreted this imaging study as follows: (rotated film with small pl effusions and opacities ) Assessment and Plan (1) Chronic liver failure without hepatic coma: Status: Acute (2) COVID-19: Status: Acute Plan 1/ Cirrhosis with a pos Hep B liver transplant with recurrence of cirrhosis in implanted liver and decompensation s/p TIP procedure 2/ Worsening LFT< mst likely 2/2 covid effect PLAN: 1/ Avoid liver toxic drugs 2/ avoid over sedation, cont with rifaximin and lactulose aiming for 2-3 soft stools daily 3/ can add vit C and zinc 4/ o/p f/u for HCC screening 5/cont covid treatment Procedures Date of Service Date of Service: 10/16/23
--- NOTE | 2023-10-16 10:57 | MHC.CM.PN ---
Patient is Covid (+); CM spoke with /HCP/Jasmyne @ [phone] and addressed IMM with her (original will be mailed certified letter to Jasmyne and a copy has been placed on the chart). 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 Home./self care is the goal and CM has initiated and will follow for dc planning. PCP is Dr. Eric.
[2023-10-16 11:55] LABS: Glucose, Whole Blood 249 mg/dL (60-115)
[2023-10-16] MEDS: Insulin Lispro 100 UNIT/ML 3 ML VIAL SUBCUT ×3 (11:58→21:43)
[2023-10-16] MEDS: Omeprazole 20 MG CAPSULE.DR PO (16:01)
[2023-10-16 16:34] LABS: Glucose, Whole Blood 281 mg/dL (60-115)
[2023-10-16] MEDS: Tacrolimus 0.5 MG CAPSULE PO (16:40)
[2023-10-16 20:38] LABS: Glucose, Whole Blood 367 mg/dL (60-115)
[2023-10-16] MEDS: Insulin Glargine,Hum.rec.anlog 100 UNIT/ML 10 ML VIAL 20 UNIT SUBCUT (21:43)
[2023-10-17] VITALS (7 sets, daily range): BP systolic 134–162; BP diastolic 62–76; PULSE 72–87; RESP 16–20; TEMP 36.5–37.3; O2SAT 96–100
[2023-10-17] MEDS: 0.9 % Sodium Chloride Flush 3 ML SYRINGE IVFLUSH ×4 (01:00→22:16)
[2023-10-17] MEDS: Heparin Sodium,Porcine 5,000 UNIT/ML VIAL 5000 UNIT SUBCUT ×2 (05:08→16:42)
[2023-10-17] MEDS: Omeprazole 20 MG CAPSULE.DR PO ×2 (05:08→16:43)
--- NOTE | 2023-10-17 07:00 | CA_ITS ---
Transthoracic Echocardiogram Patient (Last, First, Middle): Lucas Duenas R Gender: Male Date of : 1950 Age: 73 Procedure Date: 10/17/2023 Procedure Type: Transthoracic Echocardiogram Location: [facility] Height: 165.1 cm Weight: 62.6 kg BSA: 1.69 m2 Heart Rate: bpm BP: 134 / 76 mmHg News Production Supervisor: TO Referring MD: Stef Arriaga MD Symptoms: CHF? Conclusions: - Normal left ventricular size and systolic function. There is mildly increased left ventricular wall thickness. The visually estimated ejection fraction is between 60-65%. - Spectral Doppler is indicative of an impaired relaxation filling pattern. E/E prime ratio is >15, consistent with elevated filling pressures. - Normal right ventricular cavity size and systolic function. - Mild pulmonary hypertension is present. - There is a small circumferential pericardial effusion. - There is a large pleural effusion. Findings Left Ventricle Normal left ventricular size and systolic function. There is mildly increased left ventricular wall thickness. The visually estimated ejection fraction is between 60-65%. There is no evidence of regional wall motion abnormalities. Abnormal diastolic function is noted. Spectral Doppler is indicative of an impaired relaxation filling pattern. E/E prime ratio is >15, consistent with elevated filling pressures. Right Ventricle Normal right ventricular cavity size and systolic function. Atria The left atrium is mildly dilated. Aortic Valve There is a normal trileaflet aortic valve. There is mild thickening of the aortic valve. There is no aortic valve stenosis. There is no aortic valve regurgitation. Mitral Valve The mitral valve appears normal. There is trace mitral valve regurgitation. There is no mitral valve stenosis. Pulmonic Valve The pulmonic valve is likely normal. There is trace pulmonic valve regurgitation. Tricuspid Valve Normal tricuspid valve structure. There is trace tricuspid valve regurgitation. The right ventricular systolic pressure is 30 mmHg. Normal right atrial pressure. Mild pulmonary hypertension is present. Great Vessels All visible segments of the aorta are normal in size. The visualized portions of the pulmonary artery and branches are normal. Venous The inferior vena cava is normal in size and collapses greater than 50% with inspiration. Pericardium/Pleural There is a small circumferential pericardial effusion. There is a large pleural effusion. There are no definitive echocardiographic findings of tamponade physiology. Prior Study Comparison Changes noted compared to prior study. Elevated filling pressures. Measurements 2D Linear Measurements IVSd: 1.12 0.6-0.9/0.6-1.0 cm LVIDd: 4.54 3.9-5.3/4.2-5.9 cm LVIDd Index: 2.69 2.4-3.2/2.2-3.1 cm/m2 LVIDs: 2.86 2.0-3.6 cm LVPWd: 1.29 0.7-1.1 cm LA Diam: 3.60 2.7-3.8/3.0-4.0 cm LAIDs Index: 2.13 1.5-2.3 cm/m2 LV Mass: 251.81 67-162/88-224 g LV Mass Index: 149.00 43-95/49-115 g/m2 LVOT Diam: 1.90 3.0+(-)1.3 cm Mitral Valve MV Pk E: 1.00 MV PK A: 1.31 MV Decel Time: 188.00 E/A: 0.80 E'Lateral: 5.33 E'Medial: 5.55 E/E' Med: 18.00 E/E' Lat: 18.70 PHT: 55.00 MVA PHT: 4.00 Decel Sierra: 5.31 Aortic Valve AoV Pk Jaguar: 1.84 AoV Mn Jaguar: 1.21 AoV VTI: 0.35 AoV Pk Grad: 14.00 Aov Mn Grad: 7.00 JUAN ALBERTO Cont.VTI: 2.14 LVOT LVOT Pk Jaguar: 1.25 LVOT Mn Jaguar: 0.77 LVOT VTI: 0.26 LVOT Pk Grad: 6.00 LVOT Mn Grad: 3.00 LVOT Diam: 1.90 LVOT Area: 2.84 Diastolic Function MV Pk E: 1.00 MV Pk A: 1.31 E/A: 0.80 E'Medial: 5.55 E/E' Med: 18.00 E' Laterial: 5.33 E/E' Lat: 18.70 Tricuspid Valve TR Pk Jaguar: 2.62 TR Pk Grad: 27.00 RA Press: 3.00 RVSP: 30.00 Great Vessels Aorta Ao Asc: 2.80 2.1-3.4 cm Updated in Other Vendor System with Status of Final Nikita Navarrete MD electronically signed on 10/17/2023 9:55:28 PM with status of Final
[2023-10-17 07:36] LABS: INTERNATIONAL NORM RATIO 2.3 (0.9-1.1); Prothrombin Time 28.3 SEC (11.1-13.3)
[2023-10-17 07:39] LABS: Hemoglobin 9.4 g/dl (14.0-18.0)
[2023-10-17 07:41] LABS: Hematocrit 27.5 % (42.0-52.0); Mean Corpuscular HGB Conc 34.2 g/dl (31.0-36.0); Mean Corpuscular Hemoglobin 30.1 pg (27.0-33.0); Mean Corpuscular Volume 88.1 fL (80.0-98.0); PLT CLUMP 1; Red Blood Count 3.12 X10*6/uL (4.60-5.80); Red Cell Distribution Width 15.6 % (11.0-16.0)
[2023-10-17 07:49] LABS: B Type Natriuretic Peptide 1293 pg/mL (<100)
[2023-10-17 07:55] LABS: Alanine Aminotransferase 74 U/L (0-40); Albumin Level 2.4 g/dL (3.5-5.0); Alkaline Phosphatase 192 U/L (39-117); Anion Gap 11 (12-20); Aspartate Amino Transferase 55 U/L (5-37); Bilirubin Direct 3.6 mg/dL (0.0-0.5); Bilirubin Total 17.5 mg/dL (0.0-1.0); Blood Urea Nitrogen 25 mg/dL (9-16); Calcium 9.6 mg/dL (8.4-10.2); Carbon Dioxide 25 mmol/L (22-29); Chloride 106 mmol/L (96-108); Creatinine Clr Calc Pharmacy 51.5; Estimated Glomerular Filt Rate > 60; Glucose Random 200 mg/dL (60-115); Potassium 5.2 mmol/L (3.3-5.1); Sodium 137 mmol/L (135-145); Total Protein 6.1 g/dL (6.5-8.0)
[2023-10-17 07:58] LABS: PLT ABN DIST 1
[2023-10-17 08:00] LABS: White Blood Count 5.5 X10*3/uL (4.8-10.8)
[2023-10-17 08:16] LABS: Glucose, Whole Blood 194 mg/dL (60-115)
[2023-10-17] MEDS: Lactulose 20 GM/30 ML SOLUTION 30 GM PO ×3 (08:19→22:14)
[2023-10-17] MEDS: Insulin Lispro 100 UNIT/ML 3 ML VIAL SUBCUT ×4 (08:19→22:16)
[2023-10-17] MEDS: rifAXIMin 550 MG TABLET PO ×2 (08:20→22:15)
[2023-10-17] MEDS: Calcium + Vitamin D 250 MG TABLET 500 MG PO ×2 (08:20→22:15)
[2023-10-17] MEDS: Magnesium Oxide 400 MG TABLET 800 MG PO (08:20)
[2023-10-17] MEDS: Multivitamin TABLET 1 TAB PO (08:20)
[2023-10-17] MEDS: Furosemide 40 MG/4 ML VIAL IVPUSH ×2 (08:23→16:43)
[2023-10-17] MEDS: dexAMETHasone sod phosphate 4 MG/ML VIAL 6 MG IVPUSH (08:23)
[2023-10-17 11:53] LABS: Glucose, Whole Blood 379 mg/dL (60-115)
--- NOTE | 2023-10-17 14:49 | HO.PM.IMPN ---
Subjective Subjective Date of Service: 10/17/23 Interval History: Slowly improving. Breathing feels better per patient (all information via computer repair engineer) Review of Systems Denies chest pain Denies shortness of breath Denies fever chills Denies Physical Exam Vital Signs: Vital Signs: Last Vital Signs Temp 98.1 F 10/17/23 11:43 Pulse 87 10/17/23 11:43 Resp 20 10/17/23 11:43 BP 150/67 H 10/17/23 11:43 Pulse Ox 99 10/17/23 11:43 O2 Del Method Nasal Cannula 10/17/23 11:43 O2 Flow Rate 1 10/17/23 11:43 BMI result Body Mass Index 23.1 Const: Other: Awake alert no acute distress Resp: Other: Clear to auscultation bilaterally no rales rhonchi or wheezes Cardio: Other: No S4; positive S1-S2; no S3 murmurs rubs or gallops GI: Other: Soft nontender nondistended normoactive bowel sounds Extrem: Other: No edema bilaterally Objective Data Active Medications Calcium Carbonate/Cholecalciferol (Calcium + Vitamin D 250 Mg Tablet) 500 mg PO BID [facility] Last Admin: 10/17/23 08:20 Dose: 500 mg Documented By: ANAM Dexamethasone Sodium Phosphate (Dexamethasone Sod Phosphate 4 Mg/Ml Vial) 6 mg IVPUSH DAILY [facility] Last Admin: 10/17/23 08:23 Dose: 6 mg Documented By: ANAM Dextrose (Dextrose 50 % 25 Gm/50 Ml Syringe) 25 gm IVPUSH Q15M PRN; Protocol PRN Reason: per Hypoglycemia Standing Ord. Furosemide (Furosemide 40 Mg/4 Ml Vial) 40 mg IVPUSH BID@0900,1800 [facility]; Protocol Glucose (Glucose Gel 15 Gm Gel..Gram.) 15 gm PO Q15M PRN; Protocol PRN Reason: per Hypoglycemia Standing Ord. Heparin Sodium (Porcine) (Heparin Sodium,Porcine 5,000 Unit/Ml Vial) 5,000 unit SUBCUT Q12H [facility] Last Admin: 10/17/23 05:08 Dose: 5,000 unit Documented By: TAYLOR Insulin Glargine (Insulin Glargine,Hum.Rec.Anlog 100 Unit/Ml 10 Ml Vial) 20 unit SUBCUT BEDTIME [facility] Last Admin: 10/16/23 21:43 Dose: 20 unit Documented By: KARINA Insulin Human Lispro (Insulin Lispro 100 Unit/Ml 3 Ml Vial) 0 unit SUBCUT QIDACHS [facility]; Protocol Last Admin: 10/17/23 12:02 Dose: 10 unit Documented By: ANAM Lactulose (Lactulose 20 Gm/30 Ml Solution) 30 gm PO TID [facility] Last Admin: 10/17/23 14:12 Dose: 30 gm Documented By: ANAM Magnesium Oxide (Magnesium Oxide 400 Mg Tablet) 800 mg PO DAILY [facility] Last Admin: 10/17/23 08:20 Dose: 800 mg Documented By: ANAM Multivitamins/Vitamin C (Multivitamin Tablet) 1 tab PO DAILY [facility] Last Admin: 10/17/23 08:20 Dose: 1 tab Documented By: ANAM Pt Own (Entecavir [ Baraclude] 0.5 Mg Tablet) 1 tab PO DAILY [facility] Last Admin: 10/17/23 08:20 Dose: 1 tab Documented By: ANAM Omeprazole (Omeprazole 20 Mg Capsule.) 20 mg PO BID@0630,1630 [facility] Last Admin: 10/17/23 05:08 Dose: 20 mg Documented By: TAYLOR Ondansetron HCl (Ondansetron Hcl 4 Mg/2 Ml Vial) 4 mg IVPUSH Q8H PRN PRN Reason: Nausea and Vomiting Rifaximin (Rifaximin 550 Mg Tablet) 550 mg PO BID [facility] Last Admin: 10/17/23 08:20 Dose: 550 mg Documented By: ANAM Sodium Chloride (0.9 % Sodium Chloride Flush 3 Ml Syringe) 3 ml IVFLUSH QSHIFT [facility] Last Admin: 10/17/23 14:15 Dose: 3 ml Documented By: ANAM Tacrolimus (Tacrolimus 0.5 Mg Capsule) 0.5 mg PO DAILY@1700 [facility] Last Admin: 10/16/23 16:40 Dose: 0.5 mg Documented By: KARINA Labs 10/17/23 06:13 10/17/23 06:13 Labs: Laboratory Results - last 24 hr 10/16/23 10/16/23 10/17/23 16:26 20:31 06:13 MCV 88.1 MCH 30.1 MCHC 34.2 RDW 15.6 Plt Count TNP MPV Not Reportable Absolute Nucleated RBC 0.000 Nucleated RBC % (auto) 0.0 PT 28.3 H INR 2.3 H Anion Gap 11 L Estim Creat Clear Calc 51.5 Estimated GFR > 60 POC Glucose 281 H 367 H* Random Glucose 200 H Calcium 9.6 Total Bilirubin 17.5 H Direct Bilirubin 3.6 H AST 55 H ALT 74 H Alkaline Phosphatase 192 H B-Natriuretic Peptide 1293 H Total Protein 6.1 L Albumin 2.4 L 10/17/23 10/17/23 07:50 11:42 MCV MCH MCHC RDW Plt Count MPV Absolute Nucleated RBC Nucleated RBC % (auto) PT INR Anion Gap Estim Creat Clear Calc Estimated GFR POC Glucose 194 H 379 H* Random Glucose Calcium Total Bilirubin Direct Bilirubin AST ALT Alkaline Phosphatase B-Natriuretic Peptide Total Protein Albumin Microbiology Microbiology Results: Microbiology 10/16/23 04:21 Blood Culture - Preliminary Blood - Venous No growth after 24 hours. 10/16/23 02:06 Blood Culture - Preliminary Blood - Venous No growth after 24 hours. Assessment and Plan (1) Acute hypoxemic respiratory failure: Status: Acute (2) Hydrothorax: Status: Acute Plan 73-year-old male with past medical history of liver transplant secondary to hepatitis-C and liver cirrhosis comes into the hospital with complaints of cough, shortness of breath found to be hypoxic and COVID positive. Son notes past history of congestive failure; BNP elevated 1.Acute hypoxic respiratory failure /COVID-19 infection -chest x-ray showing bilateral pleural effusion which seem to be chronic -dexamethasone 6 mg daily -follow clinically 2.Acute congestive heart failure -son states history of congestive heart failure... last echo showing ejection fraction of 60% with no evidence of diastolic dysfunction -BNP slowly improving -increase IV Lasix to 40 q.12 -will obtain echocardiogram and cardiology consult 3.Chronic liver failure without hepatic coma -history of liver cirrhosis status post liver transplant -continue lactulose, dexamethasone.....GI consulted reviewed..... Continue continue entecavir and tacrolimus 4.Hyperammonemia -no encephalopathy -continue lactulose with a goal of BM 3-4 times daily and Xifaxan Heparin subQ Full code Require ongoing hospitalization to treat acute exacerbation of CHF in the backdrop of COVID 19 infection. This will require expert consultation Quality Stroke Does the patient have a stroke diagnosis?: No VTE Prior VTE?: No VTE Risk Level:: Medical - moderate - high VTE Device Contraindication: Treatment Not Indicated VTE Drug Contraindication: N/A - Med Ordered
[2023-10-17] MEDS: Tacrolimus 0.5 MG CAPSULE PO (16:43)
[2023-10-17 16:44] LABS: Glucose, Whole Blood 352 mg/dL (60-115)
[2023-10-17 20:39] LABS: Glucose, Whole Blood 318 mg/dL (60-115)
[2023-10-17] MEDS: Insulin Glargine,Hum.rec.anlog 100 UNIT/ML 10 ML VIAL 20 UNIT SUBCUT (22:15)
[2023-10-18 03:22] VITALS: BP 151/71; PULSE 76; RESP 18; TEMP 36.3; O2SAT 99
[2023-10-18] MEDS: Heparin Sodium,Porcine 5,000 UNIT/ML VIAL 5000 UNIT SUBCUT (05:07)
[2023-10-18] MEDS: Omeprazole 20 MG CAPSULE.DR PO (05:08)
[2023-10-18 07:57] VITALS: BP 131/73; PULSE 88; RESP 18; TEMP 36.8; O2SAT 100
[2023-10-18] MEDS: Insulin Lispro 100 UNIT/ML 3 ML VIAL SUBCUT ×2 (08:06→12:05)
[2023-10-18] MEDS: Calcium + Vitamin D 250 MG TABLET 500 MG PO (08:07)
[2023-10-18] MEDS: rifAXIMin 550 MG TABLET PO (08:07)
[2023-10-18] MEDS: Furosemide 40 MG/4 ML VIAL IVPUSH (08:07)
[2023-10-18] MEDS: Lactulose 20 GM/30 ML SOLUTION 30 GM PO (08:07)
[2023-10-18] MEDS: Multivitamin TABLET 1 TAB PO (08:07)
[2023-10-18] MEDS: 0.9 % Sodium Chloride Flush 3 ML SYRINGE IVFLUSH (08:07)
[2023-10-18] MEDS: Magnesium Oxide 400 MG TABLET 800 MG PO (08:07)
[2023-10-18] MEDS: dexAMETHasone sod phosphate 4 MG/ML VIAL 6 MG IVPUSH (08:07)
[2023-10-18 08:09] LABS: Glucose, Whole Blood 322 mg/dL (60-115)
[2023-10-18 11:33] VITALS: BP 153/69; PULSE 79; RESP 18; TEMP 37.1; O2SAT 100
[2023-10-18 11:42] LABS: Glucose, Whole Blood 412 mg/dL (60-115)
--- NOTE | 2023-10-18 12:49 | P.CONCA_ITS ---
History of Present Illness History of Present Illness Date of Service: 10/18/23 Chief complaint: CHF, COVID, liver failure Narrative: [age] year gentleman with COVID 19 infection who was noticed to have pleural effusions and underwent echocardiography showing normal LV function with elevated filling pressures and large left pleural effusion. We have been asked to assess him for congestive heart failure. He is currently off oxygen and is saying that he is feeling better. Overall appears to be euvolemic by examination. He is deeply jaundiced due to liver issues. Blood pressure is mildly elevated. Denying any chest discomfort. [facility] Past Medical History Medical History Loculated pleural effusion Antiphospholipid antibody syndrome H/O: CVA (cerebrovascular accident) H/O pleural effusion Nephrolithiasis Diabetes HTN (hypertension) Hepatitis C Family History Family History Father Prostate cancer Mother Diabetes HTN (hypertension) Surgical History Surgical History Liver transplant recipient History of liver transplant H/O hernia repair History of surgery on arm Hx of colonoscopy Social History Household Members: Spouse Housing: House Are you a primary home care associate to a significant other at home: No Do you presently have visiting nurse or other home services: No Alcohol intake: former Patient Tobacco Use Status: Never used Tobacco service: No Current occupational status: employed Meds Allergies Allergy/AdvReac Type Severity Reaction Status Date / Time lisinopril AdvReac Unknown cough Verified 08/26/23 10:29 Active Medications: Current Medications Calcium Carbonate/Cholecalciferol (Calcium + Vitamin D 250 Mg Tablet) 500 mg PO BID [facility] Last Admin: 10/18/23 08:07 Dose: 500 mg Dexamethasone Sodium Phosphate (Dexamethasone Sod Phosphate 4 Mg/Ml Vial) 6 mg IVPUSH DAILY [facility] [place] Last Admin: 10/18/23 08:07 Dose: 6 mg Dextrose (Dextrose 50 % 25 Gm/50 Ml Syringe) 25 gm IVPUSH Q15M PRN; Protocol PRN Reason: per Hypoglycemia Standing Ord. Furosemide (Furosemide 40 Mg/4 Ml Vial) 40 mg IVPUSH BID@0900,1800 [facility] [place]; Protocol Last Admin: 10/18/23 08:07 Dose: 40 mg Glucose (Glucose Gel 15 Gm Gel..Gram.) 15 gm PO Q15M PRN; Protocol PRN Reason: per Hypoglycemia Standing Ord. Heparin Sodium (Porcine) (Heparin Sodium,Porcine 5,000 Unit/Ml Vial) 5,000 unit SUBCUT Q12H [facility] [place] Last Admin: 10/18/23 05:07 Dose: 5,000 unit Insulin Glargine (Insulin Glargine,Hum.Rec.Anlog 100 Unit/Ml 10 Ml Vial) 20 unit SUBCUT BEDTIME [facility] [place] Last Admin: 10/17/23 22:15 Dose: 20 unit Insulin Human Lispro (Insulin Lispro 100 Unit/Ml 3 Ml Vial) 0 unit SUBCUT QIDACHS [facility] [place]; Protocol Last Admin: 10/18/23 12:05 Dose: 10 unit Lactulose (Lactulose 20 Gm/30 Ml Solution) 30 gm PO TID [facility] [place] Last Admin: 10/18/23 08:07 Dose: 30 gm Magnesium Oxide (Magnesium Oxide 400 Mg Tablet) 800 mg PO DAILY [facility] [place] Last Admin: 10/18/23 08:07 Dose: 800 mg Multivitamins/Vitamin C (Multivitamin Tablet) 1 tab PO DAILY [facility] [place] Last Admin: 10/18/23 08:07 Dose: 1 tab Pt Own (Entecavir [ Baraclude] 0.5 Mg Tablet) 1 tab PO DAILY [facility] [place] Last Admin: 10/18/23 08:10 Dose: 1 tab Omeprazole (Omeprazole 20 Mg Capsule.Dr) 20 mg PO BID@0630,1630 [facility] [place] Last Admin: 10/18/23 05:08 Dose: 20 mg Ondansetron HCl (Ondansetron Hcl 4 Mg/2 Ml Vial) 4 mg IVPUSH Q8H PRN PRN Reason: Nausea and Vomiting Rifaximin (Rifaximin 550 Mg Tablet) 550 mg PO BID [facility] [place] Last Admin: 10/18/23 08:07 Dose: 550 mg Sodium Chloride (0.9 % Sodium Chloride Flush 3 Ml Syringe) 3 ml IVFLUSH QSHIFT [facility] [place] Last Admin: 10/18/23 08:07 Dose: 3 ml Tacrolimus (Tacrolimus 0.5 Mg Capsule) 0.5 mg PO DAILY@1700 [facility] [place] Last Admin: 10/17/23 16:43 Dose: 0.5 mg Home Medications Medication Instructions Recorded Confirmed Last Taken Type entecavir 0.5 mg tablet (Baraclude) 1 tab PO DAILY 12/22/20 10/16/23 10/15/23 History 1 magnesium oxide 800 mg PO DAILY 12/22/20 10/16/23 10/15/23 History insulin aspart U-100 100 unit/mL See Protocol subcut TID 06/03/23 10/16/23 10/15/23 History (3 mL) subcutaneous pen (Novolog FlexPen U-100 Insulin aspart) lactulose 10 gram/15 mL oral 30 ml PO TID 06/03/23 10/16/23 10/15/23 History solution multivitamin 1 tab PO DAILY 06/03/23 10/16/23 06/02/23 History pantoprazole 40 mg tablet,delayed 40 mg PO BID 06/03/23 10/16/23 10/15/23 History release rifaximin 550 mg tablet (Xifaxan) 550 mg PO BID 06/03/23 10/16/23 10/15/23 History calcium carbonate 600 mg-vitamin 1 cap PO BID 08/26/23 10/16/23 Unknown History D3 12.5 mcg (500 unit) capsule (Calcium 600 with Vitamin D3) furosemide 10 mg/mL injection 40 mg IVPUSH Q OTHER DAY 10/16/23 10/16/23 10/15/23 History solution tacrolimus 1 mg capsule, 0.5 mg PO DAILY@1700 10/16/23 10/16/23 10/15/23 History immediate-release Physical Exam 2 Vital Signs: Vital Signs: Last Vital Signs Temp 98.7 F 10/18/23 11:33 Pulse 79 10/18/23 11:33 Resp 18 10/18/23 11:33 BP 153/69 H 10/18/23 11:33 Pulse Ox 100 10/18/23 11:33 O2 Del Method Room Air 10/18/23 11:33 O2 Flow Rate 1 10/18/23 07:57 BMI result Body Mass Index 23.1 GENERAL APPEARANCE: in no acute distress, jaundiced. NECK: no carotid bruit, no jugular venous distention. SKIN: no suspicious lesions, warm and dry. HEART: no murmurs, regular rate and rhythm. LUNGS: clear to auscultation bilaterally. ABDOMEN: soft, nontender. EXTREMITIES: no edema. PERIPHERAL PULSES: equal. NEUROLOGIC: No gross deficits, AAO X 3 Objective Labs and Meds 10/17/23 06:13 10/17/23 06:13 Lab results: Laboratory Results - last 24 hr 10/17/23 10/17/23 10/18/23 16:28 20:28 08:00 POC Glucose 352 H* 318 H 322 H 10/18/23 11:36 POC Glucose 412 H* Assessment and Plan (1) Congestive heart failure: Status: Acute Plan Pleasant 73-year-old gentleman with diastolic heart failure in the setting of COVID-19 infection. Clinically appears to be euvolemic. He still has pleural effusion which may or may not improve with diuretics. Can gently diurese and reassess the effusion. If respiratory status worsens and pleural effusion is increasing then can consider thoracentesis. Currently stable from cardiovascular point of view. Blood pressure is mildly elevated should be monitor closely. Thank you for allowing me to participate in the care of your patient. Please feel free to contact me if you have any questions. Procedures Date of Service Date of Service: 10/18/23
--- NOTE | 2023-10-18 13:19 | PM.DS ---
DS: Providers Provider Date of Service: 10/18/23 Date of admission: 10/16/23 04:49 Date of discharge: 10/18/23 Primary care physician: Amauri Eric MD Consults: 10/16/23 04:40 Consult to Gastroenterology Routine Consulting Provider: Chantell Cohn Reason for consultation: hx of liver transplant, acute hepatits Has provider been notified: No DS: Diagnosis Discharge Diagnosis (1) Congestive heart failure: Status: Acute (2) Hyperammonemia: Status: Acute (3) COVID-19: Status: Acute DS: Summary Hospital Course Hospital Course: 73-year-old male with past medical history of cardiolipin antibody syndrome, hepatitis-C / liver cirrhosis status post liver transplant in 2010 at [facility], diabetes, hypertension, comes into the hospital with complaints of cough and shortness of breath. Tested positive for COVID at home today. Patient's is at bedside was helped with the history. Patient and were [place]ian-speaking, history is obtained with the help of an shroudman. Patient reports that he started feeling weak, cough, shortness of breath about 2 days ago, tested positive for COVID at home. Denies any chest pain, no abdominal pain, no nausea or vomiting, reports compliance with his lactulose and has about 3-4 bowel movements a day. Has had no urinary symptoms and no lower extremity edema. Denies any headache or change in vision. no fever or chills. 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 On arrival to the ED patient found to be hypoxic with 88% on room air, temperature of 98.1 degrees, blood pressure normal 190/73 improved to 140/60s, Labs are significant for WBC count of 2.6 which is chronically low, hemoglobin of 9.1, hematocrit 27.8, chills around his baseline, PT of 284.9, INR of 2.0, BUN of 20, creatinine of 1.07, lactic acid of 2.1, magnesium of 1.4, total bili of 19.3, AST of 79, ALT of 88 which is slightly lower than his previous numbers in September, albumin of 2.7, UA negative for acute infection Chest x-ray shows pleural effusion with bilateral bibasilar opacities similar to previous imaging from August Hospital Course Admitted to telemetry and aggressively diurese with IV Lasix. Over the course of the next 48 hours O2 requirement was resolved and patient is requesting to return to home. Seen by Cardiology who essentially agreed with current treatment plan. At this point in time patient will be discharged home follow up with his PCP and his personal property assessor at [facility] Time Attestation Discharge coordination time: Greater than 30 minutes Quality: Safe Use of Opioids Does Pt have an Active Cancer Diagnosis on the Problem List?: No Quality: Stroke Does the patient have a stroke diagnosis?: No Physical Exam Vital Signs: Vital Signs: Last Vital Signs Temp 98.7 F 10/18/23 11:33 Pulse 79 10/18/23 11:33 Resp 18 10/18/23 11:33 BP 153/69 H 10/18/23 11:33 Pulse Ox 100 10/18/23 11:33 O2 Del Method Room Air 10/18/23 11:33 O2 Flow Rate 1 10/18/23 07:57 BMI result Body Mass Index 23.1 Const: Other: Awake alert no acute distress Resp: Other: Clear to auscultation bilaterally no rales rhonchi or wheezes Cardio: Other: No S4; positive S1-S2; no S3 murmurs rubs or gallops GI: Other: Soft nontender nondistended normoactive bowel sounds Extrem: Other: No edema bilaterally DS: Data Data Completed and Pending Labs on day of discharge: Laboratory Results - last 24 hr 10/17/23 10/17/23 10/18/23 16:28 20:28 08:00 POC Glucose 352 H* 318 H 322 H 10/18/23 11:36 POC Glucose 412 H* Preliminary micro results at discharge 10/16/23 04:21 Blood Culture - Preliminary Blood - Venous No growth after 48 hours. 10/16/23 02:06 Blood Culture - Preliminary Blood - Venous No growth after 48 hours. Discharge Plan Discharge Anticipated Discharge Date/Time: 10/18/23 13:16 Patient Disposition: Home, Self-Care Discharge Diagnosis: Acute systolic heart failure Referrals: Amauri Eric MD [Primary Care Provider] - 1 Week Discharge Medications: Continued entecavir [Baraclude] 0.5 mg tablet 1 tab PO DAILY magnesium oxide 400 mg magnesium Tablet 800 mg PO DAILY calcium carbonate-vitamin D3 [Calcium 600 with Vitamin D3] 600 mg-12.5 mcg (500 unit) capsule 1 cap PO BID pantoprazole 40 mg tablet,delayed release (DR/EC) 40 mg PO BID insulin aspart U-100 [Novolog FlexPen U-100 Insulin] 100 unit/mL (3 mL) insulin pen See Protocol subcut TID Protocol: Insulin Correction Scale Less than or equal to 110 ---- Give (units): 0 111 to 150 Give (units): 0 151 to 200 Give (units): 2 201 to 250 Give (units): 4 251 to 300 Give (units): 6 301 to 350 Give (units): 8 Greater than 350 Give (units): 10 Call MD if Blood Glucose > : 350 lactulose 10 gram/15 mL solution 30 ml PO TID Xifaxan 550 mg tablet 550 mg PO BID multivitamin Tablet 1 tab PO DAILY insulin glargine [Lantus Solostar U-100 Insulin] 100 unit/mL (3 mL) insulin pen 20 unit subcut BEDTIME Qty: 15 0RF furosemide 10 mg/mL solution 40 mg IVPUSH Q OTHER DAY Protocol: Hold for SBP< HOLD for SBP < : 90 tacrolimus 1 mg capsule 0.5 mg PO DAILY@1700 Discharge Orders: Discharge Order (Routine); Ordered 10/18/23 Ordered By: Dane Oropeza Diet: Advance to usual diet Activity on Discharge: As tolerated Stand Alone Forms: Patient Portal Discharge page Care Plan Goals: Continue all meds as before hospital Health Concerns: Follow-up with your PCP GI as scheduled Plan of Treatment: Essentially no changes to her management Assessment: See discharge summary
--- NOTE | 2023-10-18 13:48 | MHC.CM.PN ---
Met w/pt to discuss d/c planning needs: Pt resides w/spouse and has no services. Call placed to spouse, Jasmyne. She asked that CM call their son, Lucas at [phone]. Message left requesting call back for transportation to home
== END 2023-10-18 17:00 | disposition home or self-care (01) | DRG 291 ==
LOC: HO.ED 03:14 → HO.EDOVER 05:08 → HO.IMC 06:32
PROVIDERS: Student in an Organized Health Care Education/Training Program; Admitting Provider Internal Medicine; Emergency Provider Internal Medicine; PCP Internal Medicine; Visit Provider Hospitalist
DX: I50.21 Acute systolic (congestive) heart failure (principal); J96.01 Acute respiratory failure with hypoxia; U07.1 COVID-19; T86.42 Liver transplant failure; D68.61 Antiphospholipid syndrome; K74.60 Unspecified cirrhosis of liver; Z79.4 Long term (current) use of insulin; Z79.621 Long term (current) use of calcineurin inhibitor; Z79.899 Other long term (current) drug therapy
CPT/HCPCS: 36415; 71045; 80048; 80053; 80076; 81001; 81003; 82140; 82947; 83605; 83735; 83880; 85025; 85027; 85610; 87040; 93005; 93306; 94640; 99285; J1100; J1644; J1940; J3475; Q9957

== ENCOUNTER 2023-10-16 04:49 | Outpatient (BNV) | payer MEDICARE, SELFPAY | END 2023-10-17 07:00 | PROVIDERS: Admitting Provider Internal Medicine; Emergency Provider Internal Medicine; PCP Internal Medicine; Visit Provider Internal Medicine Cardiovascular Disease | DX: I31.39 Other pericardial effusion (noninflammatory) (principal); J90 Pleural effusion, not elsewhere classified | CPT/HCPCS: 93306 ==

== ENCOUNTER → 2023-10-16 04:49 | Outpatient (BNV) | payer MEDICARE, SELFPAY | PROVIDERS: Admitting Provider Internal Medicine; Emergency Provider Internal Medicine; PCP Internal Medicine; Visit Provider Internal Medicine Gastroenterology | DX: K72.10 Chronic hepatic failure without coma (principal); U07.1 COVID-19 | CPT/HCPCS: 99223 ==

== ENCOUNTER → 2023-10-16 04:49 | Outpatient (BNV) | payer MEDICARE, SELFPAY | PROVIDERS: Admitting Provider Internal Medicine; Emergency Provider Internal Medicine; PCP Internal Medicine; Visit Provider Internal Medicine Cardiovascular Disease | DX: I50.9 Heart failure, unspecified (principal) | CPT/HCPCS: 99222 ==

== ENCOUNTER → 2023-10-16 04:49 | Outpatient (BNV) | payer MEDICARE, SELFPAY | PROVIDERS: Admitting Provider Internal Medicine; Emergency Provider Internal Medicine; PCP Internal Medicine; Visit Provider Internal Medicine | DX: U07.1 COVID-19 (principal); I50.9 Heart failure, unspecified; E72.20 Disorder of urea cycle metabolism, unspecified | CPT/HCPCS: 99223; 99233; 99239; 99499 ==

== ENCOUNTER 2023-10-22 09:57 | Emergency (ER) | payer MEDICARE, SELFPAY ==
--- NOTE | ~2023-10-22 | XR_ITS ---
EXAMINATION: XR CHEST CLINICAL INFORMATION: Weakness and fatigue COMPARISON: Previous chest x-ray most recent 10/16/[address] most recent May 2023 TECHNIQUE: 2 views of the chest were obtained. FINDINGS: The cardiac and mediastinal contours are stable. There is volume loss to the right hemithorax. There is a small right pleural effusion. There is a masslike density in the right lung base at the cardiophrenic angle. This is unchanged from recent exams When compared with previous chest CT, this may represent round atelectasis related to chronic right pleural effusion. The left lung is clear. No left. No pneumothorax. Degenerative changes of the spine. There is a linear radiopaque foreign body projecting over the left lower chest suggestive of a broken needle. XR/XR chest 2V IMPRESSION: Chronic pleural parenchymal changes at the left lung base. When compared with previous chest CT scans, this may represent round atelectasis secondary to chronic right pleural effusion. Foreign body projecting over the left lower chest, question representing a needle.
[2023-10-22 10:28] VITALS: BP 153/53; PULSE 89; RESP 18; TEMP 36.6; O2SAT 98; BMI 21.6
--- NOTE | 2023-10-22 10:32 | ECG_ITS ---
Test Reason : WEAKNESS Blood Pressure : / mmHG Vent. Rate : 086 BPM Atrial Rate : 086 BPM P-R Int : 176 ms QRS Dur : 084 ms QT Int : 394 ms P-R-T Axes : 048 010 051 degrees QTc Int : 471 ms Normal sinus rhythm Nonspecific ST abnormality Abnormal ECG When compared with ECG of 16-OCT-2023 01:31, QT has lengthened Referred By: Generic ED Physician Electronically Signed By:SNADRA CROCKER MD
[2023-10-22 11:35] LABS: Hematocrit 26.6 % (42.0-52.0); Hemoglobin 9.3 g/dl (14.0-18.0); Mean Corpuscular Hemoglobin 31.3 pg (27.0-33.0); Mean Corpuscular Volume 89.6 fL (80.0-98.0); Mean Platelet Volume 11.9 fL (9.4-12.4); NRBC Pct Auto 0.3 /100WBC (0.0-0.2); Red Blood Count 2.97 X10*6/uL (4.60-5.80); Red Cell Distribution Width 18.6 % (11.0-16.0)
[2023-10-22 11:36] LABS: Platelet Count 24 X10*3/uL (160-400)
[2023-10-22 11:37] LABS: INTERNATIONAL NORM RATIO 2.2 (0.9-1.1); Prothrombin Time 26.8 SEC (11.1-13.3)
[2023-10-22 11:42] LABS: Ammonia 72 umol/L (13-55)
[2023-10-22 11:57] LABS: Troponin-I High Sensitivity 38.7 ng/L (<3.5-35.0)
[2023-10-22 11:59] LABS: Alanine Aminotransferase 137 U/L (0-40); Albumin Level 2.4 g/dL (3.5-5.0); Alkaline Phosphatase 362 U/L (39-117); Anion Gap 11 (12-20); Aspartate Amino Transferase 70 U/L (5-37); Bilirubin Direct 5.4 mg/dL (0.0-0.5); Bilirubin Total 20.1 mg/dL (0.0-1.0); Blood Urea Nitrogen 33 mg/dL (9-16); Calcium 8.9 mg/dL (8.4-10.2); Carbon Dioxide 31 mmol/L (22-29); Chloride 95 mmol/L (96-108); Creatinine Clr Calc Pharmacy 47.3; Estimated Glomerular Filt Rate > 60; Glucose Random 366 mg/dL (60-115); Lipase 35 U/L (8-78); Potassium 3.8 mmol/L (3.3-5.1); Sodium 133 mmol/L (135-145); Total Protein 6.1 g/dL (6.5-8.0)
[2023-10-22 12:59] LABS: Neutrophils Percent Manual 84 % (45-73)
[2023-10-22 13:02] LABS: Band Neutrophils Percent 10 % (3-5); Lymphocytes Absolute Manual 0.1 X10*3/uL (1.2-4.9); Lymphocytes Percent Manual 2 % (20-40); Metamyelocytes Absolute 0.1 X10*3/uL; Metamyelocytes Percent 1 %; Microcytosis 1+ (5-14) /OIF; Monocytes Absolute Manual 0.2 X10*3/uL (0.1-1.2); Monocytes Percent Manual 3 % (2-11); Neutrophils Absolute Manual 5.6 X10*3/uL (2.0-8.3); RBC Morphology NOTED; Schistocytes 3+ (>5) /OIF; Toxic Vacuolation PRESENT
[2023-10-22 13:03] LABS: Burr Cells 2+ (3-5) /OIF; Platelet Estimate DECREASED (NORMAL); Platelet Morphology Comment NORMAL
--- NOTE | 2023-10-22 15:12 | ED_ITS ---
HPI - General Adult General Chief complaint: General Medical Stated complaint: psoriasis right abd, difficulty walking Time Seen by Provider: 10/22/23 15:12 History of Present Illness HPI narrative: The patient is a 73-year-old with a history a liver transplant. He lives at home with his . He is on tacrolimus, rifaximin, lactulose, and entecavir. The patient was hospitalized recently for a COVID infection. In addition to being treated for COVID infection he was diuresed for possible fluid overload. He was discharged 4 days ago on FridayOctober 18. His said that he did fine for the 1st couple of days but over the last 24 hours he has seemed increasingly weak to the point where he has difficulty walking. He feels very tired and he feels very weak but he does not really have more specific complaints. He has not had a fever. He has not had a cough. He has not had any nausea or vomiting. He has chronic loose stools because he is on lactulose. His thinks his urine looks darker than usual. She also thinks that he looks more jaundiced than usual. However the patient's primary complaint is just that he feels very weak and very tired and that is why he wanted to come to the hospital today. 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 Related Data Home Medications Medication Instructions Recorded Confirmed entecavir 0.5 mg tablet (Baraclude) 1 tab PO DAILY 12/22/20 10/16/23 magnesium oxide 800 mg PO DAILY 12/22/20 10/16/23 insulin aspart U-100 100 unit/mL See Protocol subcut TID 06/03/23 10/16/23 (3 mL) subcutaneous pen (Novolog FlexPen U-100 Insulin aspart) lactulose 10 gram/15 mL oral 30 ml PO TID 06/03/23 10/16/23 solution multivitamin 1 tab PO DAILY 06/03/23 10/16/23 pantoprazole 40 mg tablet,delayed 40 mg PO BID 06/03/23 10/16/23 release rifaximin 550 mg tablet (Xifaxan) 550 mg PO BID 06/03/23 10/16/23 calcium carbonate 600 mg-vitamin 1 cap PO BID 08/26/23 10/16/23 D3 12.5 mcg (500 unit) capsule (Calcium 600 with Vitamin D3) furosemide 10 mg/mL injection 40 mg IVPUSH Q OTHER DAY 10/16/23 10/16/23 solution tacrolimus 1 mg capsule, 0.5 mg PO DAILY@1700 10/16/23 10/16/23 immediate-release Previous Rx's Medication Instructions Recorded insulin glargine 100 unit/mL (3 20 unit (0.2 mL) subcut BEDTIME 06/05/23 mL) subcutaneous pen (Lantus #15 mL Solostar U-100 Insulin) Allergies Allergy/AdvReac Type Severity Reaction Status Date / Time lisinopril AdvReac Unknown cough Verified 10/22/23 10:28 Review of Systems 2 Review of Systems: Yes all other systems are reviewed and are negative [facility] Past Medical History Medical History Loculated pleural effusion Antiphospholipid antibody syndrome H/O: CVA (cerebrovascular accident) H/O pleural effusion Nephrolithiasis Diabetes HTN (hypertension) Hepatitis C Surgical History Liver transplant recipient History of liver transplant H/O hernia repair History of surgery on arm Hx of colonoscopy Family History Family History Father Prostate cancer Mother Diabetes HTN (hypertension) Social History Social History Household Members: Spouse Housing: House Are you a primary multi care technician to a significant other at home: No Do you presently have visiting nurse or other home services: No Alcohol intake: never Patient Tobacco Use Status: Never used Tobacco Smoked in Last 30 Days: No Use of substances other than those prescribed or required for medical reasons: No Advance Directives: No Advance Directives Information Provided: Yes service: No Current occupational status: employed Physical Exam ED Vital Signs: Vital Signs - 24 hr 10/22/23 10:28 10/22/23 19:11 Temperature 98 F Pulse Rate 89 94 Respiratory Rate 18 18 Blood Pressure 153/53 H 156/92 H Pulse Oximetry 98 99 Oxygen Delivery Method Room Air Room Air BMI result Body Mass Index 21.6 Const Other: The patient is a very jaundiced 73-year-old. He is awake and alert and appropriate. He looks chronically ill but not obviously acutely ill. HENMT Other: Mucous membranes are not obviously dry. Eyes Other: Pupils are small, round, and equal. The patient has significant scleral icterus. Neck Other: No JVD Resp Other: Lungs are fairly clear bilaterally Cardio Other: The patient has a regular rate and rhythm with no murmur GI Other: Patient has a large surgical scar across his upper abdomen. The abdomen is soft and nontender. Skin Other: Significant jaundice Neuro Other: Patient is awake and alert. He seems quite coherent. He does not seem encephalopathic. Moves his extremities symmetrically. He has some mild asterixis when asked to extend his arms with his wrists extended. Extrem Other: No peripheral edema Medications Administered Discontinued Medications Generic Name Dose Route Start Last Admin Trade Name Freq PRN Reason Stop Dose Admin Sodium Chloride 1,000 mls @ 999 mls/hr 10/22/23 16:15 10/22/23 16:23 Ns IV 10/22/23 17:15 999 mls/hr .Q1H1M [place] Administration Medical Decision Making Medical Decision Making [facility] Narrative: The patient is a 73-year-old male with a history of liver transplant I believe from 2010. He is maintained on tacrolimus. Apparently he has had worsening liver function for several months and earlier this year he needed a TIPS procedure. He has also had worsening jaundice. Patient was hospitalized last week in the setting of a COVID positive test and possible fluid overload. He was treated primarily with diuretics was discharged on furosemide. Over the last 24 hours he has felt strangely tired and weak. However he is not presenting with fever or pain or other specific symptoms. Clinically I thought the patient might be somewhat dehydrated. Labs show a higher BUN and 5 days ago. Additionally the patient's BNP is 475 compared to 1293 5 days ago. Patient's bilirubin is slightly higher. Patient's ammonia is 73 but this is slightly better than his ammonia level 5 days ago. Overall I felt there was no indication of an acute infectious process. His CRP was undetectable. He was given 1 L of IV fluids and felt better. He looked better. Ultimately I felt there was no clear indication for hospitalization or further investigation or management in the emergency room. He seemed comfortable going home with his . The patient's expressed her frustration that the transplant service at [facility] has seemed less aggressive in managing the patient's condition. Apparently the patient's transplanted liver showing signs of cirrhosis. The patient is not considered a candidate for a 2nd liver transplant. Patient was advised to contact both his PCP and the transplant service for prompt follow-up. Lab Data 10/22/23 11:22 10/22/23 11:22 Labs: Lab Results 10/22/23 10/22/23 10/22/23 Range/Units 11:22 14:55 17:28 WBC 6.0 (4.8-10.8) X10*3/uL RBC 2.97 L (4.60-5.80) X10*6/uL Hgb 9.3 L (14.0-18.0) g/dl Hct 26.6 L (42.0-52.0) % MCV 89.6 (80.0-98.0) fL MCH 31.3 (27.0-33.0) pg MCHC 35.0 (31.0-36.0) g/dl RDW 18.6 H (11.0-16.0) % Plt Count 24 L D (160-400) X10*3/uL MPV 11.9 (9.4-12.4) fL Immature Gran % (Auto) Cancelled Neut % (Auto) Cancelled Lymph % (Auto) Cancelled Bonner % (Auto) Cancelled Eos % (Auto) Cancelled Baso % (Auto) Cancelled Lymph # (Auto) Cancelled Bonner # (Auto) Cancelled Eos # (Auto) Cancelled Baso # (Auto) Cancelled Abs Immat Gran (auto) Cancelled Absolute Neuts (auto) Cancelled Absolute Nucleated RBC 0.020 H (0.0-0.012) X10*3/uL Nucleated RBC % (auto) 0.3 H (0.0-0.2) /100WBC Neutrophils % (Manual) 84 H (45-73) % Band Neutrophils % 10 H (3-5) % Lymphocytes % (Manual) 2 L (20-40) % Monocytes % (Manual) 3 (2-11) % Metamyelocytes % 1 % Abs Neuts (Manual) 5.6 (2.0-8.3) X10*3/uL Lymphocytes # (Manual) 0.1 L (1.2-4.9) X10*3/uL Monocytes # (Manual) 0.2 (0.1-1.2) X10*3/uL Metamyelocytes # 0.1 X10*3/uL Toxic Vacuolation PRESENT Platelet Estimate DECREASED (NORMAL) Plt Morphology Comment NORMAL RBC Morphology NOTED Microcytosis 1+ (5-14) /OIF [place] Cells 2+ (3-5) /OIF Schistocytes 3+ (>5) /OIF PT 26.8 H (11.1-13.3) SEC INR 2.2 H (0.9-1.1) Sodium 133 L (135-145) mmol/L Potassium 3.8 D (3.3-5.1) mmol/L Chloride 95 L (96-108) mmol/L Carbon Dioxide 31 H (22-29) mmol/L Anion Gap 11 L (12-20) BUN 33 H (9-16) mg/dL Creatinine 1.16 (0.5-1.4) mg/dL Estim Creat Clear Calc 47.3 Estimated GFR > 60 Random Glucose 366 H* (60-115) mg/dL Lactic Acid 3.3 H* (0.5-2.0) mmol/L Lactic Acid F/U @ 2Hr 2.6 H* (0.5-2.0) mmol/L Calcium 8.9 D (8.4-10.2) mg/dL Total Bilirubin 20.1 H (0.0-1.0) mg/dL Direct Bilirubin 5.4 H (0.0-0.5) mg/dL AST 70 H (5-37) U/L ALT 137 H (0-40) U/L Alkaline Phosphatase 362 H (39-117) U/L Ammonia 72 H (13-55) umol/L Troponin I High Sens 38.7 H D (<3.5-35.0) ng/L C-Reactive Protein < 0.10 (< or = 0.50) mg/dL B-Natriuretic Peptide (<100) pg/mL Total Protein 6.1 L (6.5-8.0) g/dL Albumin 2.4 L (3.5-5.0) g/dL Lipase 35 (8-78) U/L 11/29/23 Range/Units 17:29 WBC (4.8-10.8) X10*3/uL RBC (4.60-5.80) X10*6/uL Hgb (14.0-18.0) g/dl Hct (42.0-52.0) % MCV (80.0-98.0) fL MCH (27.0-33.0) pg MCHC (31.0-36.0) g/dl RDW (11.0-16.0) % Plt Count (160-400) X10*3/uL MPV (9.4-12.4) fL Immature Gran % (Auto) Neut % (Auto) Lymph % (Auto) Bonner % (Auto) Eos % (Auto) Baso % (Auto) Lymph # (Auto) Bonner # (Auto) Eos # (Auto) Baso # (Auto) Abs Immat Gran (auto) Absolute Neuts (auto) Absolute Nucleated RBC (0.0-0.012) X10*3/uL Nucleated RBC % (auto) (0.0-0.2) /100WBC Neutrophils % (Manual) (45-73) % Band Neutrophils % (3-5) % Lymphocytes % (Manual) (20-40) % Monocytes % (Manual) (2-11) % Metamyelocytes % % Abs Neuts (Manual) (2.0-8.3) X10*3/uL Lymphocytes # (Manual) (1.2-4.9) X10*3/uL Monocytes # (Manual) (0.1-1.2) X10*3/uL Metamyelocytes # X10*3/uL Toxic Vacuolation Platelet Estimate (NORMAL) Plt Morphology Comment RBC Morphology Microcytosis /OIF [place] Cells /OIF Schistocytes /OIF PT (11.1-13.3) SEC INR (0.9-1.1) Sodium (135-145) mmol/L Potassium (3.3-5.1) mmol/L Chloride (96-108) mmol/L Carbon Dioxide (22-29) mmol/L Anion Gap (12-20) BUN (9-16) mg/dL Creatinine (0.5-1.4) mg/dL Estim Creat Clear Calc Estimated GFR Random Glucose (60-115) mg/dL Lactic Acid (0.5-2.0) mmol/L Lactic Acid F/U @ 2Hr (0.5-2.0) mmol/L Calcium (8.4-10.2) mg/dL Total Bilirubin (0.0-1.0) mg/dL Direct Bilirubin (0.0-0.5) mg/dL AST (5-37) U/L ALT (0-40) U/L Alkaline Phosphatase (39-117) U/L Ammonia (13-55) umol/L Troponin I High Sens 45.1 H (<3.5-35.0) ng/L C-Reactive Protein (< or = 0.50) mg/dL B-Natriuretic Peptide 475 H (<100) pg/mL Total Protein (6.5-8.0) g/dL Albumin (3.5-5.0) g/dL Lipase (8-78) U/L Discharge Plan Discharge Clinical Impression: Weakness, Dehydration, Chronic liver disease, Jaundice, Liver transplant recipient Patient Disposition: Home, Self-Care Additional Instructions: I think your weakness may have been a result of being somewhat dehydrated. Please try to increase your fluid intake. Continue your regular medications. Follow up soon with your regular doctor and with your liver doctor in [place]. Return to the emergency room if worse. Prescriptions: No Action entecavir [Baraclude] 0.5 mg tablet 1 tab PO DAILY magnesium oxide 400 mg magnesium Tablet 800 mg PO DAILY calcium carbonate-vitamin D3 [Calcium 600 with Vitamin D3] 600 mg-12.5 mcg (500 unit) capsule 1 cap PO BID pantoprazole 40 mg tablet,delayed release (DR/EC) 40 mg PO BID insulin aspart U-100 [Novolog FlexPen U-100 Insulin] 100 unit/mL (3 mL) insulin pen See Protocol subcut TID Protocol: Insulin Correction Scale Less than or equal to 110 ---- Give (units): 0 111 to 150 Give (units): 0 151 to 200 Give (units): 2 201 to 250 Give (units): 4 251 to 300 Give (units): 6 301 to 350 Give (units): 8 Greater than 350 Give (units): 10 Call MD if Blood Glucose > : 350 lactulose 10 gram/15 mL solution 30 ml PO TID Xifaxan 550 mg tablet 550 mg PO BID multivitamin Tablet 1 tab PO DAILY insulin glargine [Lantus Solostar U-100 Insulin] 100 unit/mL (3 mL) insulin pen 20 unit subcut BEDTIME Qty: 15 0RF furosemide 10 mg/mL solution 40 mg IVPUSH Q OTHER DAY Protocol: Hold for SBP< HOLD for SBP < : 90 tacrolimus 1 mg capsule 0.5 mg PO DAILY@1700 Referrals: Amauri Eric MD [Primary Care Provider] - Kaycee Correa MD [Physician] - (Please follow-up with your liver transplant doctor) Interventions: ED Discharge Assessment Last Done: 10/22/23 19:14 Discharge Date/Time: 10/22/23 19:16
[2023-10-22 15:53] LABS: Lactic Acid 3.3 mmol/L (0.5-2.0)
[2023-10-22 16:06] LABS: C Reactive Protein < 0.10 mg/dL (< or = 0.50)
[2023-10-22] MEDS: 0.9 % Sodium Chloride 1,000 ML 999 ML IV (16:23)
[2023-10-22 17:06] LABS: Reflex Lactate? Lactic Acid Added
[2023-10-22 18:00] LABS: B Type Natriuretic Peptide 475 pg/mL (<100); Troponin-I High Sensitivity 45.1 ng/L (<3.5-35.0)
[2023-10-22 18:02] LABS: ~Lactic Acid-LAB USE ONLY 2.6 mmol/L (0.5-2.0)
[2023-10-22 19:11] VITALS: BP 156/92; PULSE 94; RESP 18; O2SAT 99
[2023-10-22 19:35] LABS: Reflex Lactate? 2 Y
[2023-10-23 09:07] LABS: Tacrolimus Prograf 2.6 NG/ML ((5-20))
== END 2023-10-22 19:16 | disposition home or self-care (01) ==
PROVIDERS: Physician Assistant Medical; Emergency Provider Emergency Medicine; PCP Internal Medicine
DX: L40.9 Psoriasis, unspecified (principal); R26.2 Difficulty in walking, not elsewhere classified; E86.0 Dehydration; R53.1 Weakness; R94.31 Abnormal electrocardiogram [ECG] [EKG]; K76.9 Liver disease, unspecified; R06.02 Shortness of breath; Z79.899 Other long term (current) drug therapy
CPT/HCPCS: 36415; 71046; 80048; 80076; 80197; 82140; 83605; 83690; 83880; 84484; 85007; 85027; 85610; 86140; 87040; 93005; 99284

== ENCOUNTER 2023-11-11 10:18 | Outpatient (REF) | payer MEDICARE, SELFPAY ==
[2023-11-11 11:57] LABS: Blood Urea Nitrogen 27 mg/dL (9-16)
[2023-11-11 11:58] LABS: Alanine Aminotransferase 39 U/L (0-40); Albumin Level 2.3 g/dL (3.5-5.0); Alkaline Phosphatase 237 U/L (39-117); Anion Gap 13 (12-20); Aspartate Amino Transferase 52 U/L (5-37); Bilirubin Direct 5.4 mg/dL (0.0-0.5); Bilirubin Total 19.2 mg/dL (0.0-1.0); Calcium 8.6 mg/dL (8.4-10.2); Carbon Dioxide 23 mmol/L (22-29); Chloride 107 mmol/L (96-108); Estimated Glomerular Filt Rate > 60; Glucose Random 175 mg/dL (60-115); Potassium 4.6 mmol/L (3.3-5.1); Sodium 138 mmol/L (135-145); Total Protein 5.7 g/dL (6.5-8.0)
== END 2023-11-11 10:19 | disposition home or self-care (01) ==
LOC: HO.HHCL 10:18
PROVIDERS: Visit Provider Internal Medicine
DX: K74.69 Other cirrhosis of liver (principal)
CPT/HCPCS: 36415; 80048; 80076

== ENCOUNTER 2023-11-20 12:24 | Outpatient (REF) | payer MEDICARE, SELFPAY ==
[2023-11-21 16:47] LABS: Adenovirus F 40/41 Not Detected (Not Detect.); Astrovirus Not Detected (Not Detect.); Campylobacter Not Detected (Not Detect.); Cryptosporidium Not Detected (Not Detect.); Cyclospora cayetanensis Not Detected (Not Detect.); E. coli EAEC Not Detected (Not Detect.); E. coli EPEC Detected (Not Detect.); E. coli ETEC Not Detected (Not Detect.); E. coli STEC Not Detected (Not Detect.); Entamoeba histolytica Not Detected (Not Detect.); Giardia lamblia Not Detected (Not Detect.); Norovirus GI/GII Not Detected (Not Detect.); Plesiomonas shigelloides Not Detected (Not Detect.); Rotavirus A Not Detected (Not Detect.); Salmonella Not Detected (Not Detect.); Sapovirus Not Detected (Not Detect.); Shigella sp./EIEC Not Detected (Not Detect.); Vibrio Not Detected (Not Detect.); Vibrio Cholerae Not Detected (Not Detect.); Yersinia enterocolitica Not Detected (Not Detect.)
== END 2023-11-20 12:25 | disposition home or self-care (01) ==
LOC: HO.HHCLNP 12:24
PROVIDERS: Visit Provider Internal Medicine
DX: R19.7 Diarrhea, unspecified (principal)
CPT/HCPCS: 87507

== ENCOUNTER 2023-11-20 13:46 | Outpatient (REF) | payer MEDICARE, SELFPAY ==
[2023-11-20 16:42] LABS: Anion Gap 16 (12-20); Blood Urea Nitrogen 30 mg/dL (9-16); Carbon Dioxide 23 mmol/L (22-29); Chloride 106 mmol/L (96-108); Estimated Glomerular Filt Rate > 60; Glucose Random 206 mg/dL (60-115); Sodium 141 mmol/L (135-145)
[2023-11-21 14:48] LABS: CDiff Gene PCR NEGATIVE (Negative)
== END 2023-11-20 13:47 | disposition home or self-care (01) ==
LOC: HO.HHCL 13:46
PROVIDERS: Visit Provider Internal Medicine
DX: R19.7 Diarrhea, unspecified (principal); R60.0 Localized edema
CPT/HCPCS: 36415; 80048; 87493

== ENCOUNTER 2023-11-27 10:12 | Emergency (ER) | payer MEDICARE, SELFPAY ==
[2023-11-27 10:25] VITALS: BP 118/76; PULSE 95; O2SAT 98
[2023-11-27 10:28] VITALS: BP 172/41; PULSE 88; RESP 18; O2SAT 97; BMI 23.5
--- NOTE | 2023-11-27 10:44 | ED.GENADULT ---
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 Patient states that he has had diarrhea. Patient denies any significant change in skin color. According to Dr. Paredes the patient has been on anticoagulation previously for anti phospholipid syndrome but he developed variceal bleeding, patient points out that this was prior to his TIPS procedure. Related Data Home Medications Medication Instructions Recorded Confirmed entecavir 0.5 mg tablet (Baraclude) 1 tab PO DAILY 12/22/20 10/16/23 magnesium oxide 800 mg PO DAILY 12/22/20 10/16/23 insulin aspart U-100 100 unit/mL See Protocol subcut TID 06/03/23 10/16/23 (3 mL) subcutaneous pen (Novolog FlexPen U-100 Insulin aspart) lactulose 10 gram/15 mL oral 30 ml PO TID 06/03/23 10/16/23 solution multivitamin 1 tab PO DAILY 06/03/23 10/16/23 pantoprazole 40 mg tablet,delayed 40 mg PO BID 06/03/23 10/16/23 release rifaximin 550 mg tablet (Xifaxan) 550 mg PO BID 06/03/23 10/16/23 calcium carbonate 600 mg-vitamin 1 cap PO BID 08/26/23 10/16/23 D3 12.5 mcg (500 unit) capsule (Calcium 600 with Vitamin D3) furosemide 10 mg/mL injection 40 mg IVPUSH Q OTHER DAY 10/16/23 10/16/23 solution tacrolimus 1 mg capsule, 0.5 mg PO DAILY@1700 10/16/23 10/16/23 immediate-release Previous Rx's Medication Instructions Recorded insulin glargine 100 unit/mL (3 20 unit (0.2 mL) subcut BEDTIME 07/13/23 mL) subcutaneous pen (Lantus #15 mL Solostar U-100 Insulin) Allergies Allergy/AdvReac Type Severity Reaction Status Date / Time lisinopril AdvReac Unknown cough Verified 10/22/23 10:28 Review of Systems Review of Systems: Pertinent positives and negatives as stated in [facility] Past Medical History Source: nursing notes reviewed Onset Date is defined in the Problem List Problems that require an onset date and time if occurred within 24 hrs of arrival to the ED Aortic Dissection and Rupture; Neurologic impairment; Cardiopulmonary Arrest; Endotracheal Intubation; Insertion or Replacement of Mechanical Circulatory Assist Device Medical History Hyperammonemia Chronic liver failure without hepatic coma Hydrothorax Bilateral pleural effusion Loculated pleural effusion Antiphospholipid antibody syndrome H/O: CVA (cerebrovascular accident) H/O pleural effusion Nephrolithiasis Diabetes HTN (hypertension) Hepatitis C Surgical History Liver transplant recipient History of liver transplant H/O hernia repair History of surgery on arm Hx of colonoscopy Family History Family History Father Prostate cancer Mother Diabetes HTN (hypertension) Social History Social History Household Members: Spouse Housing: House Are you a primary day care home provider to a significant other at home: No Do you presently have visiting nurse or other home services: No Alcohol intake: never Patient Tobacco Use Status: Never used Tobacco Advance Directives: No Advance Directives Information Provided: Yes service: No Current occupational status: employed Physical Exam ED Vital Signs: Vital Signs - 24 hr 11/27/23 10:28 11/27/23 15:59 Temperature 98.3 F Pulse Rate 88 93 Respiratory Rate 18 17 Blood Pressure 172/41 H 151/60 H Pulse Oximetry 97 96 Oxygen Delivery Method Room Air Room Air BMI result Body Mass Index 23.5 VITAL SIGNS: Reviewed. GENERAL: Well developed, well nourished, in no acute distress. HEAD: Normocephalic/atraumatic EYES: PERRLA, EOMI, scleral icterus is present EARS: Ext canals without abnormality NOSE: Nares patent bilateral OROPHARYNX: no oral lesions noted, posterior pharynx clear, mucosal jaundice NECK: Supple, no adenopathy LUNGS: Normal breath sounds. No adventitious sounds or accessory muscle use. SpO2<97> CARDIOVASCULAR: Regular rate and rhythm without noted murmurs, no JVD 1+ lower pitting edema ABDOMEN: Soft, non-tender, non-distended with bowel sounds, no fluid wave, reducible incisional hernia noted. MUSCULOSKELETAL: No tenderness, deformities, or effusions noted on gross inspection. EXTREMITIES: No cyanosis, clubbing or edema. SKIN: Inspection of the skin reveals no rashes, + jaundice NEUROLOGIC: Alert and oriented x 4. Strength and sensation to light touch were grossly intact x 4. Medical Decision Making Medical Decision Making [facility] Narrative: 1035: 73-year-old male with history and clinical presentation of liver transplant and TIPS procedure at [facility] presents with increasing shortness of breath. I have concerns the patient may be experiencing a thrombus TIPS and will proceed with Doppler ultrasound and abdominal ultrasound. However, patient is hemodynamically stable, he is clearly short of breath. Would not jump to anticoagulation at this time due to bleeding history and significant liver disease. Will rule out possible viral illness. I reached out to Dr. Correa at [facility] to gain additional advice and recommendations regarding patient's management. 1056: Almita, records management coordinator, Dr Correa([phone]) trying to move up TIPS procedure revision, last US (11/04/2023) shows increased velocity in the TIPS and bilateral pleural effusions. IR trying to move date from 12/04/2022. I reviewed all investigations and patient has a macrocytic anemia, the anemia portion is chronically stable, there is a mild leukopenia, platelet count is listed as not reportable. Coags are chronically deranged with INR-2.1 secondary to underlying liver disease. Chemistry indices do not demonstrate an LEBRON and there is no potassium derangement, otherwise hepatic enzymes are chronically stable. Viral testing is negative for influenza/RSV/COVID. Ultrasound demonstrated a patent TIPS and a pericardial effusion which was pursued further with a CT of the chest which demonstrates findings that are chronic in nature and unchanged to include the pericardial fusion and the left-sided pleural effusion. I reviewed CT of the chest which shows chronic stable left pleural effusion as well as chronic stable pericardial effusion, there is no evidence of tamponade. 1712: I discussed case with Dr. Correa who recommends increasing Lasix to twice daily and also doubling the amiloride to 10 mg daily for 2 days on each. I discussed all lab and imaging findings. I will also give the patient return instructions for the next 24-48 hours. Patient is otherwise hemodynamically stable. Differential Diagnosis Differential Diagnoses: The differential diagnosis associated with the presentation includes Please see the discussion above Admission/Observation Consideration of admission/observation: Escalation of care including admission/observation considered Please see the discussion above Consult Healthcare Provider Management of the patient was discussed with: Business Change Manager Please see the discussion above Lab Data MDM Lab Attestation statement: I reviewed the patient's lab results. Please see the discussion above 11/27/23 12:07 11/27/23 12:07 Labs: Lab Results 11/27/23 11/27/23 Range/Units 11:23 12:07 WBC 4.1 L (4.8-10.8) X10*3/uL RBC 2.34 L D (4.60-5.80) X10*6/uL Hgb 8.1 L (14.0-18.0) g/dl Hct 24.0 L (42.0-52.0) % MCV 102.6 H (80.0-98.0) fL MCH 34.6 H (27.0-33.0) pg MCHC 33.8 (31.0-36.0) g/dl RDW 18.1 H (11.0-16.0) % Plt Count Not Reportable MPV 11.5 (9.4-12.4) fL Immature Gran % (Auto) 1.0 H (0.0-0.4) % Neut % (Auto) 76.7 H (45-73) % Lymph % (Auto) 11.5 L (20-40) % [place] % (Auto) 8.4 (2-11) % Eos % (Auto) 1.7 (0-4) % Baso % (Auto) 0.7 (0-2) % Lymph # (Auto) 0.5 L (1.2-4.9) X10*3/uL [place] # (Auto) 0.3 (0.1-1.2) X10*3/uL Eos # (Auto) 0.1 (0.0-0.4) X10*3/uL Baso # (Auto) 0.0 (0.0-0.2) X10*3/uL Abs Immat Gran (auto) 0.04 H (0.00-0.03) X10*3/uL Absolute Neuts (auto) 3.1 (2.0-8.3) x10*3/uL Absolute Nucleated RBC 0.000 (0.0-0.012) X10*3/uL Nucleated RBC % (auto) 0.0 (0.0-0.2) /100WBC PT 26.1 H (11.1-13.3) SEC INR 2.1 H (0.9-1.1) Sodium 139 (135-145) mmol/L Potassium 4.5 (3.3-5.1) mmol/L Chloride 109 H (96-108) mmol/L Carbon Dioxide 22 (22-29) mmol/L Anion Gap 13 (12-20) BUN 28 H (9-16) mg/dL Creatinine 0.77 (0.5-1.4) mg/dL Estim Creat Clear Calc 74.3 Estimated GFR > 60 Random Glucose 166 H (60-115) mg/dL Calcium 8.8 (8.4-10.2) mg/dL Total Bilirubin 20.5 H (0.0-1.0) mg/dL AST 52 H (5-37) U/L ALT 40 (0-40) U/L Alkaline Phosphatase 234 H (39-117) U/L Total Protein 5.9 L (6.5-8.0) g/dL Albumin 2.4 L (3.5-5.0) g/dL Influenza Type A (PCR) NEGATIVE (Negative) Influenza Type B (PCR) NEGATIVE (Negative) RSV RNA Qual (PCR) NEGATIVE (Negative) SARS-CoV-2 RNA (RT-PCR) NEGATIVE (Negative) Independent Interpretation I performed an independent interpretation of an: EKG Interpretation: Normal sinus rhythm, HR-92, no STEMI, [place]/QRS/QTC is within normal limits. Radiology Impression Discussion of test interpretation with radiology: I have reviewed the radiologist's reading. Radiologist Impression: Please see the discussion above External Record Review External record reviewed: Outpatient record, Prior outpatient labs, Prior outpatient radiology and Outside ED record Chronic Conditions Patient?s care impacted by: Diabetes and Other Liver failure Critical Care Time Critical Care Time Critical Care Time: Yes Total Critical Care Time: 90 Attestation: I personally attest to this time spent taking care of the patient. Discharge Plan Discharge Clinical Impression: Breath shortness, Pleural effusion, left, Pericardial effusion Patient Disposition: Home, Self-Care Instructions: Pleural Effusion (ED), Pericardial Effusion (ED), Shortness of Breath (ED) Additional Instructions: 1. Alf los pr?ximos 2 d?as, bartolome? Lasix 40 mg, dos veces al d?a. 2. Alf los pr?ximos 2 d?as, bartolome? amilorida 10 mg (ser?n dos pastillas) al d?a. 3. Vuelva a esta melody de emergencias en la ma?ruthann del 2023 para cm reevaluaci?n. Si se siente peor antes, regrese. 4. El Departamento de Radiolog?a Intervencionista de [facility] nos comunicaremos con usted con respecto a calvert procedimiento. 5. Le envi? esta nota a calvert m?dico de atenci?n primaria, el Dr. Paredes, as? tiff a calvert m?dico del h?gado, el Dr. Correa. 1. For the next 2 days, you will take Lasix 40 mg, twice a day. 2. For the next 2 days, you will take amiloride 10 mg (this will be two pills), daily. 3. Please come back into this emergency room in the morning on 11/29/2023 for re-evaluation. If you feel worse before then then please return. 4. The Interventional Radiology Department at [facility] we will be contacting you regarding your procedure. 5. I have sent this note over to your primary care doctor, Dr. Paredes, as well as your liver doctor, Dr Correa. Prescriptions: No Action entecavir [Baraclude] 0.5 mg tablet 1 tab PO DAILY magnesium oxide 400 mg magnesium Tablet 800 mg PO DAILY calcium carbonate-vitamin D3 [Calcium 600 with Vitamin D3] 600 mg-12.5 mcg (500 unit) capsule 1 cap PO BID pantoprazole 40 mg tablet,delayed release (DR/EC) 40 mg PO BID insulin aspart U-100 [Novolog FlexPen U-100 Insulin] 100 unit/mL (3 mL) insulin pen See Protocol subcut TID Protocol: Insulin Correction Scale Less than or equal to 110 ---- Give (units): 0 111 to 150 Give (units): 0 151 to 200 Give (units): 2 201 to 250 Give (units): 4 251 to 300 Give (units): 6 301 to 350 Give (units): 8 Greater than 350 Give (units): 10 Call MD if Blood Glucose > : 350 lactulose 10 gram/15 mL solution 30 ml PO TID Xifaxan 550 mg tablet 550 mg PO BID multivitamin Tablet 1 tab PO DAILY insulin glargine [Lantus Solostar U-100 Insulin] 100 unit/mL (3 mL) insulin pen 20 unit subcut BEDTIME Qty: 15 0RF furosemide 10 mg/mL solution 40 mg IVPUSH Q OTHER DAY Protocol: Hold for SBP< HOLD for SBP < : 90 tacrolimus 1 mg capsule 0.5 mg PO DAILY@1700 Referrals: Amauri Eric MD [Primary Care Provider] - Kaycee Correa MD [Physician] - Print Language: Sudanese
--- NOTE | 2023-11-27 10:53 | MHC.EDTECH ---
DR COLLEEN DUMONT [phone] [facility] TRANSPLANT
[2023-11-27 15:59] VITALS: BP 151/60; PULSE 93; RESP 17; TEMP 36.8; O2SAT 96
== END 2023-11-27 18:12 | disposition home or self-care (01) ==
PROVIDERS: Emergency Provider Student in an Organized Health Care Education/Training Program; PCP Internal Medicine
DX: I31.39 Other pericardial effusion (noninflammatory) (principal); J90 Pleural effusion, not elsewhere classified; R06.02 Shortness of breath; Z20.822 Contact with and (suspected) exposure to COVID-19; Z20.828 Contact with and (suspected) exposure to other viral communicable diseases; E11.9 Type 2 diabetes mellitus without complications; I10 Essential (primary) hypertension; K72.90 Hepatic failure, unspecified without coma; B19.20 Unspecified viral hepatitis C without hepatic coma; Z86.73 Personal history of transient ischemic attack (TIA), and cerebral infarction without residual deficits; Z79.4 Long term (current) use of insulin
CPT/HCPCS: 0241U; 36415; 71250; 76705; 80053; 85025; 85610; 93005; 93975; 99283; 99284

== ENCOUNTER → 2023-11-27 10:39 | Outpatient (BNV) | payer MEDICARE, SELFPAY | PROVIDERS: Emergency Provider Student in an Organized Health Care Education/Training Program; PCP Internal Medicine; Visit Provider Internal Medicine Cardiovascular Disease | DX: R10.9 Unspecified abdominal pain (principal) | CPT/HCPCS: 93010 ==

== ENCOUNTER 2023-11-29 11:04 | Emergency (ER) | payer MEDICARE, OTHER, SELFPAY ==
--- NOTE | 2023-11-29 11:52 | ED.GENADULT ---
HPI - General Adult General Chief complaint: General Medical Stated complaint: not feeling well recheck Time Seen by Provider: 11/29/23 12:00 Source: patient, family and cleat feeder Mode of arrival: ambulatory Limitations: language barrier History of Present Illness HPI narrative: 73 year old male with history of antiphospholipid syndrome, liver transplant/TIPS procedure, diagnosed w/ left pleural effusion, pericardial effusion with no evidence of tamponade 2 days ago here for return visit for check. Patient states he is feeling improved. He is able to walk now short distances without experiencing shortnes of breath. denies fevers, chills, leg swelling or chest pain. During his last visit it was recommended he increase his dosage and frequency of diuretics for 48 hours and then resume his normal dosage with recommendations to follow-up with Interventional Radiology at [facility] for his scheduled procedure. Patient reports he took the diuretics as prescribed. He has plans to resume his normal dosing tomorrow. He did speak to his provider at [facility] and they changed his scheduled procedure to December 01. Related Data Home Medications Medication Instructions Recorded Confirmed entecavir 0.5 mg tablet (Baraclude) 1 tab PO DAILY 12/22/20 10/16/23 magnesium oxide 800 mg PO DAILY 12/22/20 10/16/23 insulin aspart U-100 100 unit/mL See Protocol subcut TID 06/03/23 10/16/23 (3 mL) subcutaneous pen (Novolog FlexPen U-100 Insulin aspart) lactulose 10 gram/15 mL oral 30 ml PO TID 06/03/23 10/16/23 solution multivitamin 1 tab PO DAILY 06/03/23 10/16/23 pantoprazole 40 mg tablet,delayed 40 mg PO BID 06/03/23 10/16/23 release rifaximin 550 mg tablet (Xifaxan) 550 mg PO BID 06/03/23 10/16/23 calcium carbonate 600 mg-vitamin 1 cap PO BID 08/26/23 10/16/23 D3 12.5 mcg (500 unit) capsule (Calcium 600 with Vitamin D3) furosemide 10 mg/mL injection 40 mg IVPUSH Q OTHER DAY 10/16/23 10/16/23 solution tacrolimus 1 mg capsule, 0.5 mg PO DAILY@1700 10/16/23 10/16/23 immediate-release Previous Rx's Medication Instructions Recorded insulin glargine 100 unit/mL (3 20 unit (0.2 mL) subcut BEDTIME 06/05/23 mL) subcutaneous pen (Lantus #15 mL Solostar U-100 Insulin) Allergies Allergy/AdvReac Type Severity Reaction Status Date / Time lisinopril AdvReac Unknown cough Verified 11/29/23 11:53 Review of Systems Review of Systems: Yes all other systems are reviewed and are negative Constitutional: Constitutional: Reports no additional constitutional complaints, Denies body ache(s), Denies chills, Denies fever(s), Denies headache(s) and Denies weakness Eyes: Eyes: Reports no additional eye complaints and Denies change in vision ENT: Reports system reviewed and no additional complaints, except as documented, Denies dizziness, Denies headache(s), Denies nasal congestion, Denies nasal discharge and Denies neck pain Cardiovascular: Cardiovascular: Reports no additional cardiovascular complaints, Denies chest pain, Denies leg edema and Reports dyspnea (improving ) Respiratory: Respiratory: Reports no additional respiratory complaints, Denies cough and Reports dyspnea (improving ) Gastrointestinal: Gastrointestinal: Reports no additional gastrointestinal complaints, Denies abdominal pain, Denies diarrhea, Denies nausea and Denies vomiting Genitourinary: Genitourinary: Denies urinary incontinence Musculoskeletal: Musculoskeletal: Reports no additional musculoskeletal complaints, Denies back pain, Denies arthralgias, Denies joint swelling, Denies neck pain, Denies numbness and Denies tingling Integumentary/Breasts: Skin/Breast: Reports system reviewed and no additional complaints, except as docu and Denies rash Neurologic: Reports system reviewed and no additional complaints, except as documented, Denies Abnormal speech present, Denies dizziness, Denies headache(s), Denies numbness, Denies tingling and Denies weakness PMFSH Past Medical History Attestation statement: The following information was validated with the patient. Source: old records reviewed and nursing notes reviewed Onset Date is defined in the Problem List Problems that require an onset date and time if occurred within 24 hrs of arrival to the ED Aortic Dissection and Rupture; Neurologic impairment; Cardiopulmonary Arrest; Endotracheal Intubation; Insertion or Replacement of Mechanical Circulatory Assist Device Medical History Hyperammonemia Chronic liver failure without hepatic coma Hydrothorax Bilateral pleural effusion Loculated pleural effusion Antiphospholipid antibody syndrome H/O: CVA (cerebrovascular accident) H/O pleural effusion Nephrolithiasis Diabetes HTN (hypertension) Hepatitis C Surgical History Liver transplant recipient History of liver transplant H/O hernia repair History of surgery on arm Hx of colonoscopy Family History Family History Father Prostate cancer Mother Diabetes HTN (hypertension) Social History Social History Household Members: Spouse Housing: House Are you a primary respiratory care specialist to a significant other at home: No Do you presently have visiting nurse or other home services: No Alcohol intake: never Patient Tobacco Use Status: Never used Tobacco Advance Directives: Yes Advance Directives on File: Yes Advance Directives Date on File: 11/24/06 service: No Current occupational status: employed Physical Exam ED Vital Signs: Vital Signs - 24 hr 11/29/23 11:53 Temperature 98.1 F Pulse Rate 86 Respiratory Rate 16 Blood Pressure 147/53 H Pulse Oximetry 94 Oxygen Delivery Method Room Air BMI result Body Mass Index 24.5 Const General: cooperative, healthy appearing, comfortable and no acute distress Orientation/consciousness: patient oriented x3 Limitations: no limitations HENMT Other: scleral icterus Head: Yes normal to inspection Ears: hearing grossly normal bilaterally General nose exam: Normal external nose present Face and sinus: Yes normal facial exam Mouth: Normal oral and palatal mucosa present Throat: Yes posterior oropharynx normal Eyes General: appearance normal, both eyes and all related structures Pupils: Equal, round and reactive pupils present Neck Neck: Yes normal visual inspection Chest Chest palpation & inspection: normal inspection of the chest Resp Other: diminished breath sounds left, right clear Speaking full sentences in NAD Effort & Inspection: normal respiratory effort Cardio Rate: regular rate Rhythm: regular rhythm Peripheral pulses: Peripheral pulses 2+ throughout GI Inspection: Yes normal to inspection Palpation (GI): Soft to palpation and nontender Auscultation: normal bowel sounds Back/Spine/Pelvis Thoracic/Lumbar Spine: thoracic and lumbar spine normal to inspection Skin General skin exam: no rashes or lesions noted Neuro General: patient oriented x3, no focal motor deficits and normal sensation to monofilament Cranial nerves: Yes Equal, round and reactive pupils present Cognition (Neuro): normal cognition Speech: No Abnormal speech present Gait exam (Neuro): Normal gait present Motor exam (neuro): 5/5 motor strength present throughout Extrem General: Yes normal to inspection and Yes no calf tenderness Medical Decision Making Medical Decision Making MDM Narrative: 73 year old male with history of antiphospholipid syndrome, liver transplant/TIPS procedure, diagnosed w/ left pleural effusion, pericardial effusion with no evidence of tamponade 2 days ago here for return visit for check. Patient states he is feeling improved. He is able to walk now short distances without experiencing shortnes of breath. denies fevers, chills, leg swelling or chest pain. During his last visit it was recommended he increase his dosage and frequency of diuretics for 48 hours and then resume his normal dosage with recommendations to follow-up with Interventional Radiology at [facility] for his scheduled procedure. Patient reports he took the diuretics as prescribed. He has plans to resume his normal dosing tomorrow. He did speak to his provider at [facility] and they changed his scheduled procedure to December 01. Patient speaking full sentences. Patient in no apparent distress. Lung sounds diminished left side, clear on the right. Vitals are stable. Overall patient feels improved since his visit here 2 days ago. His concurs. They have been in discussion with his outpatient providers. Discussed case with attending physician Dr Martínez who cared for this patient 48 hrs ago. As patient is feeling improved will discharge patient with recommendations to follow-up with his outpatient providers and procedures. Recommend patient return for any worsening symptoms. He will resume his medications as scheduled. Reviewed worrisome signs and symptoms of when to return to the emergency room. Comfortable plan for discharge home Differential Diagnosis Differential Diagnoses: The differential diagnosis associated with the presentation includes Pleural effusion Admission/Observation Consideration of admission/observation: Escalation of care including admission/observation considered No hypoxia or tachypnea, vitals are stable, symptomatically patient feeling improved-no need for admission Independent Historian Clinical information obtained from an independent historian. History obtained from or confirmed by: Spouse External Record Review External record reviewed: Outside ED record Tests considered The following testing was considered but not selected: No hypoxia or tachypnea, symptomatically feeling better, do not feel patient needs x-ray Discharge Plan Discharge Clinical Impression: Pleural effusion Patient Disposition: Home, Self-Care Instructions: Pleural Effusion (ED) Additional Instructions: Continue your normally scheduled medications tomorrow Keep your appointment with interventional radiology on Friday Return to the ER if symptoms worsen before then. Contin?e con douglas medicamentos programados normalmente ma?ruthann Acude a tu jenn con radiolog?a intervencionista el Regrese a la melody de emergencias si los s?ntomas empeoran antes de leann fecha. Prescriptions: No Action entecavir [Baraclude] 0.5 mg tablet 1 tab PO DAILY magnesium oxide 400 mg magnesium Tablet 800 mg PO DAILY calcium carbonate-vitamin D3 [Calcium 600 with Vitamin D3] 600 mg-12.5 mcg (500 unit) capsule 1 cap PO BID pantoprazole 40 mg tablet,delayed release (DR/EC) 40 mg PO BID insulin aspart U-100 [Novolog FlexPen U-100 Insulin] 100 unit/mL (3 mL) insulin pen See Protocol subcut TID Protocol: Insulin Correction Scale Less than or equal to 110 ---- Give (units): 0 111 to 150 Give (units): 0 151 to 200 Give (units): 2 201 to 250 Give (units): 4 251 to 300 Give (units): 6 301 to 350 Give (units): 8 Greater than 350 Give (units): 10 Call MD if Blood Glucose > : 350 lactulose 10 gram/15 mL solution 30 ml PO TID Xifaxan 550 mg tablet 550 mg PO BID multivitamin Tablet 1 tab PO DAILY insulin glargine [Lantus Solostar U-100 Insulin] 100 unit/mL (3 mL) insulin pen 20 unit subcut BEDTIME Qty: 15 0RF furosemide 10 mg/mL solution 40 mg IVPUSH Q OTHER DAY Protocol: Hold for SBP< HOLD for SBP < : 90 tacrolimus 1 mg capsule 0.5 mg PO DAILY@1700 Referrals: Amauri Eric MD [Primary Care Provider] - 1 week Interventions: ED Discharge Assessment Last Done: 11/29/23 12:03 Discharge Date/Time: 11/29/23 12:04 Print Language: Vincentian
[2023-11-29 11:53] VITALS: BP 147/53; PULSE 86; RESP 16; TEMP 36.7; O2SAT 94; BMI 24.5
== END 2023-11-29 12:04 | disposition home or self-care (01) ==
PROVIDERS: Emergency Provider Student in an Organized Health Care Education/Training Program; PCP Internal Medicine
DX: J90 Pleural effusion, not elsewhere classified (principal)
CPT/HCPCS: 99282

== ENCOUNTER 2023-12-11 10:38 | Outpatient (REF) | payer MEDICARE, SELFPAY ==
[2023-12-11 13:17] LABS: Anion Gap 13 (12-20); Blood Urea Nitrogen 25 mg/dL (9-16); Calcium 8.9 mg/dL (8.4-10.2); Carbon Dioxide 24 mmol/L (22-29); Chloride 102 mmol/L (96-108); Estimated Glomerular Filt Rate > 60; Glucose Random 195 mg/dL (60-115); Potassium 4.4 mmol/L (3.3-5.1); Sodium 135 mmol/L (135-145)
== END 2023-12-11 10:39 | disposition home or self-care (01) ==
LOC: HO.HHCL 10:38
PROVIDERS: Visit Provider Internal Medicine
DX: R06.02 Shortness of breath (principal)
CPT/HCPCS: 36415; 80048

== ENCOUNTER 2023-12-23 12:14 | Outpatient (REF) | payer MEDICARE, SELFPAY ==
[2023-12-23 13:39] LABS: Basophils Percent Auto 0.7 % (0-2); Eosinophils Absolute Auto 0.1 X10*3/uL (0.0-0.4); Eosinophils Percent Auto 2.8 % (0-4); Hemoglobin 8.3 g/dl (14.0-18.0); Imm Gran Abs Auto 0.01 X10*3/uL (0.00-0.03); Imm Gran Pct Auto 0.4 % (0.0-0.4); Lymphocytes Absolute Auto 0.4 X10*3/uL (1.2-4.9); MANUAL DIFF FLAG SCAN; Mean Corpuscular HGB Conc 33.2 g/dl (31.0-36.0); Mean Corpuscular Hemoglobin 32.8 pg (27.0-33.0); Mean Corpuscular Volume 98.8 fL (80.0-98.0); Monocytes Absolute Auto 0.2 X10*3/uL (0.1-1.2); Monocytes Percent Auto 7.7 % (2-11); Neutrophils Absolute Auto 2.1 x10*3/uL (2.0-8.3); Neutrophils Percent Auto 74.4 % (45-73); PLT CLUMP 1; Red Blood Count 2.53 X10*6/uL (4.60-5.80); SCAN SMEAR FLAG 1
[2023-12-23 13:52] LABS: Anion Gap 11 (12-20); Blood Urea Nitrogen 21 mg/dL (9-16); Calcium 8.8 mg/dL (8.4-10.2); Carbon Dioxide 22 mmol/L (22-29); Chloride 106 mmol/L (96-108); Estimated Glomerular Filt Rate > 60; Glucose Random 274 mg/dL (60-115); Lipase 26 U/L (8-78); Potassium 4.6 mmol/L (3.3-5.1); Sodium 134 mmol/L (135-145)
[2023-12-23 13:58] LABS: White Blood Count 2.9 X10*3/uL (4.8-10.8)
[2023-12-23 14:00] LABS: SLIDE REVIEW VERIFIED
== END 2023-12-23 12:15 | disposition home or self-care (01) ==
LOC: HO.HHCL 12:14
PROVIDERS: Visit Provider Internal Medicine
DX: E11.65 Type 2 diabetes mellitus with hyperglycemia (principal)
CPT/HCPCS: 36415; 80048; 83690; 85025

== ENCOUNTER → 2024-01-01 13:52 | Outpatient (REF) | payer MEDICARE, SELFPAY ==
--- NOTE | 2024-01-01 13:56 | CA_ITS ---
Transthoracic Echocardiogram Patient (Last, First, Middle): Lucas Duenas R Gender: Male Date of : 1950 Age: 73 Procedure Date: 01/01/2024 Procedure Type: Transthoracic Echocardiogram Location: OP Height: 165.1 cm Weight: 62.14 kg BSA: 1.68 m2 Heart Rate: 83 bpm BP: 158 / 58 mmHg Precision Dancer: SB Referring MD: Sarah River MD Symptoms: CARDOAC MURMUR R01.1 Study Quality: Adequate ECG Rhythm: Sinus Conclusions: - The left ventricular systolic function is normal. The calculated ejection fraction is 67% by biplane method. - No obvious valvular pathology seen on this study. - Mild pulmonary hypertension is present. - There is a small pericardial effusion. Findings Procedure Information The quality of the study was technically difficult. The study quality is limited by lung artifact. Left Ventricle Normal left ventricular cavity size. There is normal left ventricular wall thickness. The left ventricular systolic function is normal. The calculated ejection fraction is 67% by biplane method. There is no evidence of regional wall motion abnormalities. Evidence suggests grade I (mild) diastolic dysfunction. Right Ventricle Normal right ventricular cavity size and systolic function. Atria Both atria are normal in size. Aortic Valve There is a normal trileaflet aortic valve. There is mild calcification of the aortic valve. There is no aortic valve stenosis. There is no aortic valve regurgitation. Mitral Valve The mitral valve appears normal. There is trace mitral valve regurgitation. There is no mitral valve stenosis. Pulmonic Valve The pulmonic valve is likely normal. Tricuspid Valve Normal tricuspid valve structure. There is trace tricuspid valve regurgitation. Mild pulmonary hypertension is present. Great Vessels The asc aorta is normal in size. Venous The inferior vena cava is normal in size and collapses greater than 50% with inspiration. Pericardium/Pleural There is a small pericardial effusion. There are no definitive echocardiographic findings of tamponade physiology. Prior Study Comparison No significant change compared to prior study dated: 10/17/2023. Recommendations, Care & Conclusions No obvious valvular pathology seen on this study. Measurements 2D Linear Measurements IVSd: 0.96 0.6-0.9/0.6-1.0 cm LVIDd: 5.16 3.9-5.3/4.2-5.9 cm LVIDd Index: 3.07 2.4-3.2/2.2-3.1 cm/m2 LVIDs: 2.79 2.0-3.6 cm LVPWd: 0.63 0.7-1.1 cm LA Diam: 3.70 2.7-3.8/3.0-4.0 cm LAIDs Index: 2.20 1.5-2.3 cm/m2 LV Mass: 176.82 67-162/88-224 g LV Mass Index: 105.25 43-95/49-115 g/m2 LVOT Diam: 2.00 3.0+(-)1.3 cm 2D Systolic Function EF 4C: 69.90 >55% EF 2C: 63.40 >55% EF BiP: 66.80 >55% Mitral Valve MV Pk E: 1.22 MV PK A: 1.34 MV Decel Time: 188.00 E/A: 0.90 E'Lateral: 9.46 E'Medial: 5.87 E/E' Med: 20.80 E/E' Lat: 12.90 PHT: 55.00 MVA PHT: 4.00 Decel Dane: 6.48 Aortic Valve AoV Pk Jaguar: 2.23 AoV Mn Jaguar: 1.46 AoV VTI: 0.45 AoV Pk Grad: 20.00 Aov Mn Grad: 10.00 JUAN ALBERTO Cont.VTI: 2.44 LVOT LVOT Pk Jaguar: 1.73 LVOT Mn Jaguar: 1.15 LVOT VTI: 0.35 LVOT Pk Grad: 12.00 LVOT Mn Grad: 6.00 LVOT Diam: 2.00 LVOT Area: 3.14 Diastolic Function MV Pk E: 1.22 MV Pk A: 1.34 E/A: 0.90 E'Medial: 5.87 E/E' Med: 20.80 E' Laterial: 9.46 E/E' Lat: 12.90 Right Ventricle TAPSE (mm): 27.00 TVS' Jaguar: 18.20 Tricuspid Valve TR Pk Jaguar: 3.00 TR Pk Grad: 36.00 RA Press: 3.00 RVSP: 39.00 Great Vessels Aorta Sinus of Valsalva: 2.90 2.0-3.5 cm Ao Asc: 2.50 2.1-3.4 cm Pulmonary Valve PV Pk Jaguar: 1.53 Peak PV Grad: 9.00 Updated in Other Vendor System with Status of Final Surinder Dillon MD electronically signed on 01/03/2024 9:40:40 AM with status of Final
== END ==
LOC: HO.CARD 13:52
PROVIDERS: PCP Internal Medicine; Visit Provider Student in an Organized Health Care Education/Training Program
DX: R01.1 Cardiac murmur, unspecified (principal)
CPT/HCPCS: 93306

== ENCOUNTER → 2024-01-01 13:56 | Outpatient (BNV) | payer MEDICARE, SELFPAY | PROVIDERS: PCP Internal Medicine; Visit Provider Internal Medicine | DX: I35.8 Other nonrheumatic aortic valve disorders (principal); R01.1 Cardiac murmur, unspecified | CPT/HCPCS: 93306 ==

== ENCOUNTER 2024-01-21 09:40 | Outpatient (AMB) | payer MEDICARE, SELFPAY ==
[2024-01-21 09:46] VITALS: BP 136/60; PULSE 82; O2SAT 97; BMI 23.0
--- NOTE | 2024-01-21 09:46 | A.OFFVIS_ITS ---
Intake Vital Signs 01/21/24 09:46 Height 5 ft 5 in Weight 138 lb BMI 23.0 BP 136/60 Blood Pressure Location Rt brachial Position Sitting Pulse 82 Pulse Source Pulse Oximeter Pulse Oximetry (%) 97 Oxygen Delivery Method Room Air Intake Visit Reasons: Pleural Effusion [employer] Required: No Allergies lisinopril Adverse Reaction (Unknown, Verified 01/21/24 09:50) cough HPI HPI Comments History of Present Illness Details The patient is here for pulmonary evaluation. The patient is a 73-year-old gentleman with a known history liver transplantation back in 2010. here presenting with a pleural effusion. The patient states that he has been evaluated at the mass was due for many years. We actually met back in 2009 at [facility] were which he was being evaluated for a right-sided loculated pleural effusion what appears to be a rounded atelectasis. He underwent a thoracentesis that time demonstrating serosanguineous drainage from side and was benign nature. Ultimately after that he did undergo his transplant. Unfortunately, 2- 3 years ago the patient received a call stating that his liver was no longer functioning. And he was no longer can be for repeat transplant. His liver became cirrhotic again. Started developing significant shortness of breath. therefore, due to the significant portal hypertension the patient underwent a tips procedure. However, after the procedure she was starting to notice worsening shortness of breath. Moderate severity even with minimal activity. Significant orthopnea. The patient was evaluated at [place] with a CT scan in November 2023 demonstrating a large left-sided pleural effusion along chronic findings on right. Patient ultimately went to [facility] where he to undergo a recanalization of the tips that was plugged. Any also underwent a thoracentesis on the left side. We do not those results. However very painful for him. After few days he did recover. His breathing has been better since. Denies any significant shortness of breath. We did go for brief walking oximetry and patient was able maintain a pulse ox of 95 and 6% with activity. Heart was still stable and is distant scores were good breath sounds are okay. Patient have a chest x-ray today. My suspicion is that the fusion is a lot better after opening the tips that was causing increased for hypertension and significant hepatic hydrothorax. Since he appears to have a loculated right-sided pleural Time likely going to resulting worsening proximal right. The patient will undergo a chest x-ray today. otherwise if he is doing well he will return in 3 months with a repeat chest x-ray. [facility] Medical History (Updated 01/21/24 @ 18:46 by Justino Rosen MD) Round atelectasis Hyperammonemia Chronic liver failure without hepatic coma Hydrothorax Bilateral pleural effusion Loculated pleural effusion Antiphospholipid antibody syndrome H/O: CVA (cerebrovascular accident) H/O pleural effusion Nephrolithiasis Diabetes HTN (hypertension) Hepatitis C Surgical History Liver transplant recipient History of liver transplant H/O hernia repair History of surgery on arm Hx of colonoscopy Family History Father Prostate cancer Mother Diabetes HTN (hypertension) Social History Household Members: Spouse Housing: House Are you a primary personal carer to a significant other at home: No Do you presently have visiting nurse or other home services: No Alcohol intake: never Patient Tobacco Use Status: Never used Tobacco Advance Directives Date on File: 11/24/06 service: No Current occupational status: employed Review of Systems Const Reports fatigue ENT Reports no additional complaints Card Denies chest pain and Reports dyspnea on exertion Resp Reports cough, Reports dyspnea on exertion and Denies wheezing GI Reports as per HPI Musc Reports no additional complaints Skin/Breast Reports change in pigmentation Neuro Reports no additional complaints Endo Reports fatigue Juan F/Lymph Denies easy bruising Aller/Immun Denies wheezing Physical Exam Vital Signs: Last Vital Signs Pulse 82 01/21/24 09:46 BP 136/60 01/21/24 09:46 Pulse Ox 97 01/21/24 09:46 Oxygen Delivery Method Room Air 01/21/24 09:46 BMI result Body Mass Index 23.0 Const General: comfortable HEENT Head: Yes normocephalic Eyes Sclerae: scleral abnormal bilateral (ictures) scleral injection Neck Neck: Yes supple Chest Chest palpation & inspection: normal inspection of the chest Resp Effort & Inspection: normal respiratory effort Auscultation: diminished lung sounds Cardio Heart sounds: S1 normal heart sound present, S2 normal heart sound present and Murmur heart sound present GI Palpation (GI): Soft to palpation Skin General skin exam: jaundice Extrem General: No clubbing and No cyanosis Assessment & Plan Assessment & Plan (1) Pleural effusion: Comment: Left sided effusion likely due to blocked TIPS resulting in increase portal pressures and hepatic hydrothorax. Could have a component of trap lung as well. We will repeat CXR today and if it is stable will repeat in 3 months. Code(s): J90 - Pleural effusion, not elsewhere classified (2) Liver failure: Code(s): K72.90 - Hepatic failure, unspecified without coma Qualifiers: Liver failure chronicity: chronic Hepatic coma status: without hepatic coma Qualified Code(s): K72.10 - Chronic hepatic failure without coma (3) Round atelectasis: Comment: RLL, chronic with a chronic loculated effusion. Could be related to asbestos with calcified pleural plaque Code(s): J98.11 - Atelectasis Plan CXR today No need for any interventions at this time Diuresis as tolerated F/U 3 months with CXR or sooner if symptoms worsen Orders: Orders XR chest 2V Today J90 - Pleural effusion, not elsewhere classified Coding Level of Care Code New Pt Level 4 (18337) Diagnoses Pleural effusion J90 Chronic liver failure without hepatic coma K72.10 Liver failure chronicity: chronic Hepatic coma status: without hepatic coma Round atelectasis J98.11 Time Spent (min) 40
== END 2024-01-21 10:13 | disposition home or self-care (01) ==
PROVIDERS: PCP Internal Medicine; Visit Provider Hospitalist
DX: J90 Pleural effusion, not elsewhere classified (principal); K72.10 Chronic hepatic failure without coma; J98.11 Atelectasis
CPT/HCPCS: 99204

== ENCOUNTER 2024-01-21 09:40 | Outpatient (REF) | payer MEDICARE, SELFPAY ==
--- NOTE | ~2024-01-21 | XR_ITS ---
EXAMINATION: XR CHEST CLINICAL INFORMATION: Pleural effusion. COMPARISON: Chest radiograph 10/22/[address] chest 11/27/2023. TECHNIQUE: 2 views of the chest were obtained. FINDINGS: Again seen is volume loss in the right hemithorax with a small pleural effusion and a rounded opacity consistent with round atelectasis. There is a new small left pleural effusion present, partially subpulmonic. The heart is borderline in size. Prominent reticulonodular markings are seen but there is no evidence of gross CHF. Again seen is the linear foreign body projecting over the left lower chest. Incidental note made of TIPS, extensive surgical clips in the right upper quadrant. Amplatz or occlusion device overlying the celiac and a Fazal nitinol IVC filter. XR/XR chest 2V IMPRESSION: 1. New small left pleural effusion. 2. Stable right pleural effusion with round atelectasis. 3. No evidence of gross CHF.
== END 2024-01-21 09:41 | disposition home or self-care (01) ==
LOC: HO.XRAY 09:40
PROVIDERS: PCP Internal Medicine; Visit Provider Hospitalist
DX: J90 Pleural effusion, not elsewhere classified (principal)
CPT/HCPCS: 71046; 99202

== ENCOUNTER 2024-02-12 15:02 | Outpatient (REF) | payer MEDICARE, SELFPAY ==
--- NOTE | ~2024-02-12 | CT_ITS ---
EXAMINATION: CT ABDOMEN WITHOUT CONTRAST CLINICAL INFORMATION: 74-year-old male with severe epigastric and periumbilical abdominal pain COMPARISON: CT abdomen from 04/29/2019 TECHNIQUE: Contiguous axial thin section helical images of the abdomen were performed without contrast. The data set was reformatted in the coronal and sagittal planes and reviewed on an independent workstation. Oral contrast used only. This CT examination was performed using dose optimization techniques as appropriate, variously including the following: *Automated exposure control *Adjustment of mA and/or kV according to patient size (this includes techniques or standardized protocols for targeted exams where dose is matched to indication/reason for exam; i.e. extremities or head) *Use of iterative reconstruction technique DLP: 253 mGy-cm FINDINGS: LUNG BASES: There is new since previous examination large left-sided pleural effusion, there is calcification adjacent to the pleura on the right with round atelectasis and loculated encapsulated pleural effusion on the right, measured 8.6 x 3.7 x 6.6 cm. There is cystic bronchiectasis seen in the right lower lobe. There is mediastinal shift to the right. There is small pericardial effusion. Coronary artery calcifications present. LIVER, GALLBLADDER, BILIARY TREE: TIPS visualized in the liver. Gallbladder is surgically absent PANCREAS: Pancreas is poorly visualized. SPLEEN: Spleen is enlarged, measured 16.3 cm ADRENAL GLANDS AND KIDNEYS: Adrenal glands are unremarkable. Both kidneys revealed no masses or hydronephrosis. No calcifications present. BOWEL LOOPS: Stomach is over distended by mucus and contrast there are postsurgical changes at the gastroesophageal junction. Loops of small bowel unremarkable. There are changes of diverticulosis but no diverticulitis. Appendix is not identified. LYMPH NODES: Normal. VASCULAR: There are 2 IVC filter present. There TIPS in the liver. BONES: Unremarkable CT/CT abdomen wo IV con IMPRESSION: 1. Large left-sided pleural effusion. Loculated encapsulated pleural effusion on the right with adjacent round atelectasis. 2. Splenomegaly. 3. TIPS in the liver. 4. Diverticulosis without diverticulitis. Fleischner guidelines were followed.
[2024-02-13 11:11] LABS: Creatinine POC 0.7 mg/dL (0.5-1.4); GFR POC > 60
== END 2024-02-12 15:03 | disposition home or self-care (01) ==
LOC: HO.CT 15:02
PROVIDERS: PCP Internal Medicine; Visit Provider Internal Medicine
DX: R10.13 Epigastric pain (principal); R10.33 Periumbilical pain
CPT/HCPCS: 74150; 82565

== ENCOUNTER 2024-02-26 13:54 | Outpatient (REF) | payer MEDICARE, SELFPAY ==
--- NOTE | ~2024-02-26 | XR_ITS ---
EXAMINATION: XR CHEST CLINICAL INFORMATION: Decreased lung sounds. Pain posterior right side. COMPARISON: Chest x-ray January 13, 2020 TECHNIQUE: 2 views of the chest were obtained. FINDINGS: Moderate volume bilateral pleural effusions causing opacification of both lung bases. Density at right lung base due to the known rounded atelectasis still present. No significant pulmonary vascular congestion, no pulmonary edema. Heart size is enlarged. Vascular stent right upper quadrant of abdomen. Surgical clips right upper quadrant and midline abdomen. No acute osseous abnormality. Compared to prior study January 21, 2024 there is not been substantial change. XR/XR chest 2V IMPRESSION: Moderate volume bilateral pleural effusions causing opacification of both lung bases.
== END 2024-02-26 13:55 | disposition home or self-care (01) ==
LOC: HO.HHCX 13:54
PROVIDERS: Visit Provider Internal Medicine
DX: R06.89 Other abnormalities of breathing (principal)
CPT/HCPCS: 36415; 71046; 80053; 80076; 82248; 83880; 85025

== ENCOUNTER 2024-02-26 14:20 | Outpatient (REF) | payer MEDICARE, SELFPAY ==
[2024-02-26 16:21] LABS: Alanine Aminotransferase 33 U/L (0-40); Albumin Level 2.6 g/dL (3.5-5.0); Alkaline Phosphatase 300 U/L (39-117); Anion Gap 12 (12-20); Aspartate Amino Transferase 36 U/L (5-37); Bilirubin Direct 3.8 mg/dL (0.0-0.5); Bilirubin Total 17.4 mg/dL (0.0-1.0); Blood Urea Nitrogen 20 mg/dL (9-16); Carbon Dioxide 22 mmol/L (22-29); Chloride 107 mmol/L (96-108); Estimated Glomerular Filt Rate > 60; Glucose Random 265 mg/dL (60-115); Potassium 4.6 mmol/L (3.3-5.1); Sodium 136 mmol/L (135-145); Total Protein 6.6 g/dL (6.5-8.0)
[2024-02-26 16:29] LABS: Basophils Percent Auto 0.7 % (0-2); Eosinophils Absolute Auto 0.1 X10*3/uL (0.0-0.4); Eosinophils Percent Auto 1.8 % (0-4); Hematocrit 26.5 % (42.0-52.0); Hemoglobin 8.6 g/dl (14.0-18.0); Imm Gran Abs Auto 0.02 X10*3/uL (0.00-0.03); Imm Gran Pct Auto 0.7 % (0.0-0.4); Lymphocytes Absolute Auto 0.3 X10*3/uL (1.2-4.9); Lymphocytes Percent Auto 11.6 % (20-40); MANUAL DIFF FLAG SCAN; Mean Corpuscular HGB Conc 32.5 g/dl (31.0-36.0); Mean Corpuscular Hemoglobin 29.9 pg (27.0-33.0); Monocytes Absolute Auto 0.2 X10*3/uL (0.1-1.2); Monocytes Percent Auto 7.2 % (2-11); Neutrophils Absolute Auto 2.2 x10*3/uL (2.0-8.3); PLT CLUMP 1; Red Blood Count 2.88 X10*6/uL (4.60-5.80); Red Cell Distribution Width 15.9 % (11.0-16.0); SCAN SMEAR FLAG 1
[2024-02-26 16:30] LABS: B Type Natriuretic Peptide 1023 pg/mL (<100)
[2024-02-26 16:35] LABS: White Blood Count 2.8 X10*3/uL (4.8-10.8)
[2024-02-26 16:36] LABS: SLIDE REVIEW VERIFIED
== END 2024-02-26 14:21 | disposition home or self-care (01) ==
LOC: HO.HHCL 14:20
PROVIDERS: Visit Provider Internal Medicine
DX: Z13.89 Encounter for screening for other disorder (principal)
CPT/HCPCS: 36415; 80053; 80076; 82248; 83880; 85025

== ENCOUNTER 2024-03-25 12:19 | Emergency (ER) | payer MEDICARE, SELFPAY ==
--- NOTE | ~2024-03-25 | CT_ITS ---
EXAMINATION: CT ABDOMEN AND PELVIS WITHOUT CONTRAST CLINICAL INFORMATION: Lower abdominal pain. History of liver failure. COMPARISON: Previous CT of the abdomen and pelvis most recent January 2021 TECHNIQUE: Multidetector volumetric imaging was performed from the superior aspect of the liver through the pubic symphysis. Sagittal and coronal reformatted images were obtained on the technologist's workstation. This CT examination was performed using dose optimization techniques as appropriate, variously including the following: *Automated exposure control *Adjustment of mA and/or kV according to patient size (this includes techniques or standardized protocols for targeted exams where dose is matched to indication/reason for exam; i.e. extremities or head) *Use of iterative reconstruction technique DLP: 438 mGy-cm FINDINGS: LUNG BASES: Bilateral gynecomastia. Volume loss to the right hemithorax. No appreciable change to the complex loculated right pleural effusion. No appreciable change to the peripheral or subpleural adjacent round right lower lobe masslike densities probably representing round atelectasis. Moderate left pleural effusion. This is slightly decreased from January 2024 exam. Enlarged heart and coronary artery calcification. Small pericardial effusion. LIVER, GALLBLADDER, AND BILIARY TREE: Previous liver transplant. 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 Question mild cirrhotic changes of the liver. No focal liver lesion. No biliary duct dilatation. The gallbladder has been removed. Pancreas not optimally visualized without IV contrast but appears unremarkable. Enlarged spleen. Question small bilateral renal stones. No hydronephrosis. Bladder not optimally distended. Diverticulosis of the colon. No evidence of diverticulitis. Question mild colitis of the cecum and proximal right colon. The distal small bowel and proximal large bowel contains air-fluid levels questionable for ileus. Stomach not optimally distended. Question of fold thickening of the proximal stomach. Surgical material seen at the GE junction region unchanged. No ascites. Right inguinal hernia containing fat. Small umbilical hernia containing fat. Multiple ventral hernias containing fat. Right lateral abdominal wall hernia containing fat. Diffuse anasarca. These findings are unchanged. Bladder not optimally distended but appears unremarkable. Slightly enlarged prostate gland. Normal caliber abdominal aorta. Varices. IVC filter. Review of bone windows unremarkable. CT/CT abdomen pelvis wo IV con IMPRESSION: Liver transplant. Mild cirrhotic changes. Right portal vein to hepatic vein TIPS shunt. Patency cannot be assessed without IV contrast. Splenomegaly and varices. No ascites. Stable complex loculated small right pleural effusion and adjacent right lower lobe round atelectasis. Moderate to large left pleural effusion. This may be minimally decreased from previous exam. Enlarged heart and small pericardial effusion. Diverticulosis. No evidence of diverticulitis. Question mild colitis of the cecum and proximal right colon. Fluid-filled distal small bowel and proximal large bowel probably representing an ileus. small nonobstructing bilateral renal stones. Multiple hernias stable from prior exam.. Fleischner guidelines were followed.
[2024-03-25 12:52] VITALS: BP 136/55; PULSE 77; RESP 20; TEMP 36.1; O2SAT 98; BMI 23.8
--- NOTE | 2024-03-25 12:53 | ED_ITS ---
HPI - Abdominal Pain General Chief Complaint: Abdominal Pain Stated Complaint: abd pain Time Seen by Provider: 03/25/24 16:10 Source: patient and family Mode of arrival: ambulatory Limitations: no limitations History of Present Illness HPI narrative: Patient comes to the emergency room complaining of right upper quadrant pain. Patient has had chronic hepatitis for several months/years. Patient had liver transplant in 2010. Patient has chronically elevated troponins, T bili usually above 18. Patient reports 1 episode of vomiting, no diarrhea Related Data Home Medications ?Medication ?Instructions ?Recorded ?Confirmed entecavir 0.5 mg tablet (Baraclude) 1 tab PO DAILY 12/22/20 10/16/23 magnesium oxide 800 mg PO DAILY 12/22/20 10/16/23 insulin aspart U-100 100 unit/mL See Protocol subcut TID 06/03/23 10/16/23 (3 mL) subcutaneous pen (Novolog FlexPen U-100 Insulin aspart) lactulose 10 gram/15 mL oral 30 ml PO TID 06/03/23 10/16/23 solution multivitamin 1 tab PO DAILY 06/03/23 10/16/23 pantoprazole 40 mg tablet,delayed 40 mg PO BID 06/03/23 10/16/23 release rifaximin 550 mg tablet (Xifaxan) 550 mg PO BID 06/03/23 10/16/23 calcium carbonate 600 mg-vitamin 1 cap PO BID 08/26/23 10/16/23 D3 12.5 mcg (500 unit) capsule (Calcium 600 with Vitamin D3) furosemide 10 mg/mL injection 40 mg IVPUSH Q OTHER DAY 10/16/23 10/16/23 solution tacrolimus 1 mg capsule, 0.5 mg PO DAILY@1700 10/16/23 10/16/23 immediate-release Previous Rx's ?Medication ?Instructions ?Recorded insulin glargine 100 unit/mL (3 20 unit (0.2 mL) subcut BEDTIME 06/05/23 mL) subcutaneous pen (Lantus #15 mL Solostar U-100 Insulin) amoxicillin 500 mg-potassium 1 tab PO BID #14 tabs 03/25/24 clavulanate 125 mg tablet (Augmentin) Allergies Allergy/AdvReac Type Severity Reaction Status Date / Time lisinopril AdvReac Unknown cough Verified 03/25/24 12:57 Review of Systems Review of Systems Constitutional : No Weight loss, No Fever, No Chills, No Night Sweats, No Fatigue, No Malaise ENT/Mouth : No Hearing loss, No Ear Pain, No Nasal Congestion, No Sinus Pain, No Hoarseness, No sore throat, No Rhinorrhea, No Swallowing Difficulty Eyes: No Eye Pain, No Swelling, No Redness, No Foreign Body, No Discharge, No Vision Changes Cardiovascular : No Chest Pain, No SOB, No Dyspnea on Exertion, No Orthopnea, No Edema, No Palpitations Respiratory : No Cough, No Sputum, No Wheezing, No Smoke Exposure, No Dyspnea Gastrointestinal : No Nausea, No Vomiting, No Diarrhea, No Constipation, complaining of abdominal pain, denies hematochezia Genitourinary : no irregular bleeding, No Dysuria, No Urinary Frequency, No Hematuria, No Urinary Incontinence, No Urgency, No Flank Pain, No Urinary Flow Changes, No Hesitancy Musculoskeletal : No joint pain, No Myalgias, No Joint Swelling Skin : No Skin Lesions, No rash Neuro : No Weakness, No Numbness, No Paresthesias, No Loss of Consciousness, No Dizziness, No Headache Psych : No Anxiety/Panic, No Depression, No SI/HI/AH/VH, No Social Issues, Heme/Lymph: No Bruising, No Bleeding,No Lymphadenopathy Endocrine : No Polyuria, No Polydipsia, No Temperature Intolerance [facility] Past Medical History Medical History Round atelectasis Hyperammonemia Chronic liver failure without hepatic coma Hydrothorax Bilateral pleural effusion Loculated pleural effusion Antiphospholipid antibody syndrome H/O: CVA (cerebrovascular accident) H/O pleural effusion Nephrolithiasis Diabetes HTN (hypertension) Hepatitis C Surgical History Liver transplant recipient History of liver transplant H/O hernia repair History of surgery on arm Hx of colonoscopy Family History Family History Father Prostate cancer Mother Diabetes HTN (hypertension) Social History Social History Household Members: Spouse Housing: House Are you a primary rn intensive care unit to a significant other at home: No Do you presently have visiting nurse or other home services: No Alcohol intake: never Patient Tobacco Use Status: Never used Tobacco Smoked in Last 30 Days: No Use of substances other than those prescribed or required for medical reasons: No Advance Directives: Yes Advance Directives on File: Yes Advance Directives Date on File: 11/24/06 service: No Current occupational status: employed Physical Exam ED Vital Signs: Vital Signs - 24 hr 03/25/24 12:52 Temperature 96.9 F Pulse Rate 77 Respiratory Rate 20 Blood Pressure 136/55 L Pulse Oximetry 98 Oxygen Delivery Method Room Air BMI result Body Mass Index 23.8 Const Other: Appearance: Alert. Oriented X3. No acute distress. Eyes: Pupils equal, round and reactive to light. Icteric sclerae ENT: Pharynx normal. Neck: Normal inspection. Neck supple. No lymph nodes noted. No crepitus CVS: Normal heart rate and rhythm. Pulses normal. Normal S1 and S2 Respiratory: No respiratory distress. Breath sounds normal. No Wheezing. No rales Abdomen: Soft , pain to palpation throughout the entire abdomen. Patient had hernia by the insertion in the right upper quadrant, with mild pressure, the hernia was easily reduced. Skin: Skin warm and dry. Diffusely icteric Extremities: No lower extremity edema. No Lacerations. No Rash Neuro: Oriented X 3. No motor deficit. No sensory deficit. Moving all extremities. No slurred speech. CN 2 through 12 grossly intact Psych: calm, cooperative, normal affect Course Course Course Narrative: This is a rapid medical exam completed by Candi LIUN: Additional HPI, ROS, PE not included below will be deferred to primary provider. Lower abdominal pain, nausea, and vomiting starting today. Denies diarrhea, fevers, chills, flank pain. Reports a history of liver failure. Medical Decision Making Medical Decision Making MDM Narrative: -my interpretation of labs: Hematology and chemistry at baseline, chronic total bilirubin of 15.6. -patient receiving IV fluids, Zofran and a dose of morphine. CT scan pending -my interpretation of CT scan, no obvious small bowel obstruction. -radiology report: Possible colitis, possible ileus. -I spoke to the patient, states that after I reduced the hernia today, within a few minutes his abdomen started feeling completely normal colon states that during his ED stay, he has had 2 good bowel movements. At this time, patient states that he feels completely back to baseline, no abdominal pain nausea vomiting or diarrhea. Patient states that after the reduction he had an order for morphine administration, but patient declined because he was not having any pain at all. -discussed with the patient that we will give him the 1st dose of antibiotics here in the ED, Augmentin, and then we will discharge him home. Patient agrees with plan. Differential Diagnosis Differential Diagnoses: The differential diagnosis associated with the presentation includes (SBO, incarcerated hernia, colitis) Admission/Observation Consideration of admission/observation: Escalation of care including admission/observation considered (Given patient's severity of symptoms on arrival, admission was considered.) Lab Data MDM Lab Attestation statement: I reviewed the patient's lab results. 03/25/24 13:51 03/25/24 13:51 Labs: Lab Results 03/25/24 Range/Units 13:51 WBC 2.0 L (4.8-10.8) X10*3/uL RBC 2.84 L (4.60-5.80) X10*6/uL Hgb 8.6 L (14.0-18.0) g/dl Hct 25.4 L (42.0-52.0) % MCV 89.4 (80.0-98.0) fL MCH 30.3 (27.0-33.0) pg MCHC 33.9 (31.0-36.0) g/dl RDW 15.9 (11.0-16.0) % Plt Count TNP MPV TNP Immature Gran % (Auto) 1.5 H (0.0-0.4) % Neut % (Auto) 83.7 H (45-73) % Lymph % (Auto) 8.2 L (20-40) % [place] % (Auto) 5.1 (2-11) % Eos % (Auto) 1.0 (0-4) % Baso % (Auto) 0.5 (0-2) % Lymph # (Auto) 0.2 L (1.2-4.9) X10*3/uL [place] # (Auto) 0.1 (0.1-1.2) X10*3/uL Eos # (Auto) 0.0 (0.0-0.4) X10*3/uL Baso # (Auto) 0.0 (0.0-0.2) X10*3/uL Abs Immat Gran (auto) 0.03 (0.00-0.03) X10*3/uL Absolute Neuts (auto) 1.6 L (2.0-8.3) x10*3/uL Absolute Nucleated RBC 0.000 (0.0-0.012) X10*3/uL Nucleated RBC % (auto) 0.0 (0.0-0.2) /100WBC Smear Tech's Comments VERIFIED Sodium 135 (135-145) mmol/L Potassium 4.5 (3.3-5.1) mmol/L Chloride 108 (96-108) mmol/L Carbon Dioxide 18 L (22-29) mmol/L Anion Gap 14 (12-20) BUN 24 H (9-16) mg/dL Creatinine 1.01 (0.5-1.4) mg/dL Estim Creat Clear Calc 55.8 Estimated GFR > 60 Random Glucose 202 H (60-115) mg/dL Calcium 9.2 (8.4-10.2) mg/dL Total Bilirubin 15.6 H (0.0-1.0) mg/dL AST 39 H (5-37) U/L ALT 40 (0-40) U/L Alkaline Phosphatase 329 H (39-117) U/L Total Protein 6.5 (6.5-8.0) g/dL Albumin 2.6 L (3.5-5.0) g/dL Independent Interpretation I performed an independent interpretation of an: CT Scan Radiology Impression Discussion of test interpretation with radiology: I have reviewed the radiologist's reading. Radiologist Impression: LUNG BASES: Bilateral gynecomastia. Volume loss to the right hemithorax. No appreciable change to the complex loculated right pleural effusion. No appreciable change to the peripheral or subpleural adjacent round right lower lobe masslike densities probably representing round atelectasis. Moderate left pleural effusion. This is slightly decreased from January 2024 exam. Enlarged heart and coronary artery calcification. Small pericardial effusion. LIVER, GALLBLADDER, AND BILIARY TREE: Previous liver transplant. 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 Question mild cirrhotic changes of the liver. No focal liver lesion. No biliary duct dilatation. The gallbladder has been removed. Pancreas not optimally visualized without IV contrast but appears unremarkable. Enlarged spleen. Question small bilateral renal stones. No hydronephrosis. Bladder not optimally distended. Diverticulosis of the colon. No evidence of diverticulitis. Question mild colitis of the cecum and proximal right colon. The distal small bowel and proximal large bowel contains air-fluid levels questionable for ileus. Stomach not optimally distended. Question of fold thickening of the proximal stomach. Surgical material seen at the GE junction region unchanged. No ascites. Right inguinal hernia containing fat. Small umbilical hernia containing fat. Multiple ventral hernias containing fat. Right lateral abdominal wall hernia containing fat. Diffuse anasarca. These findings are unchanged. Bladder not optimally distended but appears unremarkable. Slightly enlarged prostate gland. Normal caliber abdominal aorta. Varices. IVC filter. Review of bone windows unremarkable. CT/CT abdomen pelvis wo IV con IMPRESSION: Liver transplant. Mild cirrhotic changes. Right portal vein to hepatic vein TIPS shunt. Patency cannot be assessed without IV contrast. Splenomegaly and varices. No ascites. Stable complex loculated small right pleural effusion and adjacent right lower lobe round atelectasis. Moderate to large left pleural effusion. This may be minimally decreased from previous exam. Enlarged heart and small pericardial effusion. Diverticulosis. No evidence of diverticulitis. Question mild colitis of the cecum and proximal right colon. Fluid-filled distal small bowel and proximal large bowel probably representing an ileus. small nonobstructing bilateral renal stones. Multiple hernias stable from prior exam.. Fleischner guidelines were followed. Independent Historian Clinical information obtained from an independent historian. History obtained from or confirmed by: Spouse Medications Administered Discontinued Medications Generic Name Dose Route Start Last Admin Trade Name Freq PRN Reason Stop Dose Admin Sodium Chloride 1,000 mls @ 999 mls/hr 03/25/24 16:30 03/25/24 16:53 Ns IVCONT 03/25/24 17:30 999 mls/hr .Q1H1M ONE Administration Morphine Sulfate 2 mg 03/25/24 16:30 03/25/24 16:56 Morphine Sulfate 2 Mg/Ml Cartridge IVPUSH 03/25/24 16:31 Not Given ONCE ONE Protocol Ondansetron HCl 4 mg 03/25/24 16:30 03/25/24 16:56 Ondansetron Hcl 4 Mg/2 Ml Vial IVPUSH 03/25/24 16:31 Not Given ONCE ONE Discharge Plan Discharge Clinical Impression: Colitis Patient Disposition: Home, Self-Care Instructions: Colitis (ED) Additional Instructions: Please follow-up with your primary care physician tomorrow. If you have any worsening or new symptoms, please return to the emergency room or call 911 Prescriptions: New amoxicillin-pot clavulanate [Augmentin] 500-125 mg tablet 1 tab PO BID Qty: 14 0RF No Action entecavir [Baraclude] 0.5 mg tablet 1 tab PO DAILY magnesium oxide 400 mg magnesium Tablet 800 mg PO DAILY calcium carbonate-vitamin D3 [Calcium 600 with Vitamin D3] 600 mg-12.5 mcg (500 unit) capsule 1 cap PO BID pantoprazole 40 mg tablet,delayed release (DR/EC) 40 mg PO BID insulin aspart U-100 [Novolog FlexPen U-100 Insulin] 100 unit/mL (3 mL) insulin pen See Protocol subcut TID Protocol: Insulin Correction Scale Less than or equal to 110 ---- Give (units): 0 111 to 150 Give (units): 0 151 to 200 Give (units): 2 201 to 250 Give (units): 4 251 to 300 Give (units): 6 301 to 350 Give (units): 8 Greater than 350 Give (units): 10 Call MD if Blood Glucose > : 350 lactulose 10 gram/15 mL solution 30 ml PO TID Xifaxan 550 mg tablet 550 mg PO BID multivitamin Tablet 1 tab PO DAILY insulin glargine [Lantus Solostar U-100 Insulin] 100 unit/mL (3 mL) insulin pen 20 unit subcut BEDTIME Qty: 15 0RF furosemide 10 mg/mL solution 40 mg IVPUSH Q OTHER DAY Protocol: Hold for SBP< HOLD for SBP < : 90 tacrolimus 1 mg capsule 0.5 mg PO DAILY@1700 Print Language: Slovenian
[2024-03-25 14:06] LABS: Basophils Percent Auto 0.5 % (0-2); Hematocrit 25.4 % (42.0-52.0); Hemoglobin 8.6 g/dl (14.0-18.0); Imm Gran Abs Auto 0.03 X10*3/uL (0.00-0.03); Imm Gran Pct Auto 1.5 % (0.0-0.4); Lymphocytes Absolute Auto 0.2 X10*3/uL (1.2-4.9); Lymphocytes Percent Auto 8.2 % (20-40); MANUAL DIFF FLAG SCAN; Mean Corpuscular HGB Conc 33.9 g/dl (31.0-36.0); Mean Corpuscular Hemoglobin 30.3 pg (27.0-33.0); Mean Corpuscular Volume 89.4 fL (80.0-98.0); Monocytes Absolute Auto 0.1 X10*3/uL (0.1-1.2); Monocytes Percent Auto 5.1 % (2-11); Neutrophils Absolute Auto 1.6 x10*3/uL (2.0-8.3); Neutrophils Percent Auto 83.7 % (45-73); PLT CLUMP 1; Red Blood Count 2.84 X10*6/uL (4.60-5.80); Red Cell Distribution Width 15.9 % (11.0-16.0); SCAN SMEAR FLAG 1
[2024-03-25 14:12] LABS: Alanine Aminotransferase 40 U/L (0-40); Albumin Level 2.6 g/dL (3.5-5.0); Alkaline Phosphatase 329 U/L (39-117); Anion Gap 14 (12-20); Aspartate Amino Transferase 39 U/L (5-37); Bilirubin Total 15.6 mg/dL (0.0-1.0); Blood Urea Nitrogen 24 mg/dL (9-16); Calcium 9.2 mg/dL (8.4-10.2); Carbon Dioxide 18 mmol/L (22-29); Chloride 108 mmol/L (96-108); Creatinine Clr Calc Pharmacy 55.8; Estimated Glomerular Filt Rate > 60; Glucose Random 202 mg/dL (60-115); Potassium 4.5 mmol/L (3.3-5.1); Sodium 135 mmol/L (135-145); Total Protein 6.5 g/dL (6.5-8.0)
[2024-03-25 14:27] LABS: SLIDE REVIEW VERIFIED
[2024-03-25] MEDS: 0.9 % Sodium Chloride 1,000 ML 999 ML IVCONT (16:53)
--- NOTE | 2024-03-25 17:07 | PC.NURSE ---
A&Ox4, VSS, Pt presenting to ED 09/02 all throughout abdominal pain that started this morning, pain with palpation. Pt seen by provider, pt verbalized pain has resolved as of now, after passing gas. Respirations even and unlabored, Hx DM/cirrhosis, jaundice noted to eyes, and skin. Pt reports liver transplant in 2010, pt is on anti-rejection meds. Pt refused pain meds at this time, IVF running. Call ochoa with in reach, at bedside.
[2024-03-25] MEDS: Amoxicillin/Potassium Clav 875 MG TABLET PO (21:14)
== END 2024-03-25 21:10 | disposition home or self-care (01) ==
PROVIDERS: Nurse Practitioner Family; Emergency Provider Emergency Medicine; PCP Internal Medicine
DX: K52.9 Noninfective gastroenteritis and colitis, unspecified (principal); R10.11 Right upper quadrant pain
CPT/HCPCS: 36415; 74176; 80053; 85025; 99284

== ENCOUNTER 2024-04-09 14:01 | Outpatient (REF) | payer MEDICARE, SELFPAY ==
--- NOTE | ~2024-04-09 | XR_ITS ---
EXAMINATION: XR CHEST CLINICAL INFORMATION: Chronic bilateral pleural effusions. Fatigue. COMPARISON: Chest x-ray 03/13/2024. TECHNIQUE: 2 views of the chest were obtained. FINDINGS: No significant change in volume of the bilateral pleural effusions since prior chest x-ray February 26, 2024. Moderate bilateral pleural effusions present bilaterally blunting costophrenic angles and obscuring lung bases. Redemonstration of the density at the right lung base due to rounded atelectasis as seen on prior studies. No pulmonary vascular congestion. Surgical clips and vascular stents in the upper abdomen. IVC filter present. XR/XR chest 2V IMPRESSION: No significant change in volume of the bilateral pleural effusions since prior chest x-ray February/2024.
== END 2024-04-09 14:02 | disposition home or self-care (01) ==
LOC: HO.HHCX 14:01
PROVIDERS: Visit Provider Internal Medicine
DX: Z13.89 Encounter for screening for other disorder (principal)
CPT/HCPCS: 71046

== ENCOUNTER 2024-04-09 14:18 | Outpatient (REF) | payer MEDICARE, SELFPAY ==
[2024-04-09 17:36] LABS: Basophils Percent Auto 0.3 % (0-2); Eosinophils Absolute Auto 0.1 X10*3/uL (0.0-0.4); Eosinophils Percent Auto 1.7 % (0-4); Hematocrit 26.3 % (42.0-52.0); Hemoglobin 8.7 g/dl (14.0-18.0); Imm Gran Abs Auto 0.02 X10*3/uL (0.00-0.03); Imm Gran Pct Auto 0.6 % (0.0-0.4); Lymphocytes Absolute Auto 0.4 X10*3/uL (1.2-4.9); Lymphocytes Percent Auto 10.6 % (20-40); Mean Corpuscular HGB Conc 33.1 g/dl (31.0-36.0); Mean Corpuscular Hemoglobin 30.7 pg (27.0-33.0); Mean Corpuscular Volume 92.9 fL (80.0-98.0); Monocytes Absolute Auto 0.4 X10*3/uL (0.1-1.2); Monocytes Percent Auto 10.8 % (2-11); Neutrophils Absolute Auto 2.7 x10*3/uL (2.0-8.3); Red Blood Count 2.83 X10*6/uL (4.60-5.80); Red Cell Distribution Width 15.9 % (11.0-16.0); White Blood Count 3.6 X10*3/uL (4.8-10.8)
== END 2024-04-09 14:19 | disposition home or self-care (01) ==
LOC: HO.HHCL 14:18
PROVIDERS: Visit Provider Internal Medicine
DX: R10.84 Generalized abdominal pain (principal)
CPT/HCPCS: 36415; 71046; 85025

== ENCOUNTER 2024-04-14 09:22 | Outpatient (REF) | payer MEDICARE, SELFPAY ==
[2024-04-14 11:42] LABS: Anion Gap 13 (12-20); Blood Urea Nitrogen 28 mg/dL (9-16); Calcium 9.1 mg/dL (8.4-10.2); Carbon Dioxide 22 mmol/L (22-29); Chloride 108 mmol/L (96-108); Estimated Glomerular Filt Rate > 60; Glucose Fasting 146 mg/dL (60-99); Potassium 4.4 mmol/L (3.3-5.1); Sodium 139 mmol/L (135-145)
== END 2024-04-14 09:23 | disposition home or self-care (01) ==
LOC: HO.HHCL 09:22
PROVIDERS: Visit Provider Internal Medicine
DX: R60.0 Localized edema (principal)
CPT/HCPCS: 36415; 80048

== ENCOUNTER 2024-04-26 13:57 | Outpatient (AMB) | payer MEDICARE, SELFPAY ==
[2024-04-26 14:00] VITALS: PULSE 82; O2SAT 97; BMI 23.3
--- NOTE | 2024-04-26 14:00 | A.OFFVIS_ITS ---
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 here presenting with a pleural effusion. The patient states that he has been evaluated at the mass was due for many years. We actually met back in [facility] at [facility] were which he was being evaluated for a right-sided loculated pleural effusion what appears to be a rounded atelectasis. He underwent a thoracentesis that time demonstrating serosanguineous drainage from side and was benign nature. Ultimately after that he did undergo his transplant. Unfortunately, 2-3 years ago the patient received a call stating that his liver was no longer functioning. And he was no longer can be for repeat transplant. His liver became cirrhotic again. Started developing significant shortness of breath. therefore, due to the significant portal hypertension the patient underwent a tips procedure. However, after the procedure she was starting to notice worsening shortness of breath. Moderate severity even with minimal activity. Significant orthopnea. The patient was evaluated at [place] with a CT scan in November 2023 demonstrating a large left- sided pleural effusion along chronic findings on right. Patient ultimately went to [facility] where he to undergo a recanalization of the tips that was plugged. Any also underwent a thoracentesis on the left side. We do not those results. However very painful for him. After few days he did recover. His breathing has been better since. Denies any significant shortness of breath. We did go for brief walking oximetry and patient was able maintain a pulse ox of 95 and 6% with activity. Heart was still stable and is distant scores were good breath sounds are okay. Patient have a chest x-ray today. My suspicion is that the fusion is a lot better after opening the tips that was causing increased for hypertension and significant hepatic hydrothorax. Since he appears to have a loculated right-sided pleural Time likely going to resulting worsening proximal right. The patient will undergo a chest x-ray today. otherwise if he is doing well he will return in 3 months with a repeat chest x-ray. 04/26/2024 the patient is here for pulmonary follow-up visit. He is developing worsening shortness of breath. Moderate severity. Hard for him sleep and also to get around the house because of significant shortness of breath. Importance because of the worsening pleural effusions. The patient also has had worsening liver function studies with significantly elevated bilirubin. He is already status post tips procedure. He is not a candidate for a redo transplant. He understands that his condition is progressive, but, he would like some relief. He is also having significant pleuritic right-sided chest pains at the area. Sometimes he feels very sharp and moderate to severe. Can not take Motrin. He was given a prescription for oxycodone but he does not take it because he does not feel well after taking the medication. Sometimes she takes p.r.n. Tylenol although he can not take too much because they were failure. The patient is agreeable to try some gabapentin. Will send a note to his GI doctor Jessica to make sure that this is okay. Give the lowest dose of 100 mg that he can take an hour before sleep. He can titrate up to 200 mg if he needs additional assistance. During the office visit we did taken for a walking oximetry. The patient did desaturate briefly to 88%. He was visibly dyspneic with a distant score 6/10. He was placed on 2 L and he did better with a pulse ox of 96% with activity. Will go ahead and start him on oxygen both with activity and with sleep. Indeed the patient may need hospice in the future. We did review a chest x-ray that he had recently. Does have the persistent volume loss on the right with a loculated effusion. He also has an effusion on the left. On his CT scan of the abdomen that he had recently again we can see the loculated effusion with some calcifications and rounded atelectasis looking like asbestos related lung disease. Although he denies any asbestos exposure. Will request an ultrasound of the chest to assess the fluid both sides see if there is any role for thoracentesis. For now he is diuretics were increased and diuresis should help with the effusions. [facility] Medical History Round atelectasis Hyperammonemia Chronic liver failure without hepatic coma Hydrothorax Bilateral pleural effusion Loculated pleural effusion Antiphospholipid antibody syndrome H/O: CVA (cerebrovascular accident) H/O pleural effusion Nephrolithiasis Diabetes HTN (hypertension) Hepatitis C Surgical History Liver transplant recipient History of liver transplant H/O hernia repair History of surgery on arm Hx of colonoscopy Family History Father Prostate cancer Mother Diabetes HTN (hypertension) Social History Household Members: Spouse Housing: House Are you a primary managed care director to a significant other at home: No Do you presently have visiting nurse or other home services: No Alcohol intake: never Patient Tobacco Use Status: Never used Tobacco Advance Directives Date on File: 11/24/06 service: No Current occupational status: employed Review of Systems Const Reports fatigue ENT Reports no additional complaints Card Denies chest pain and Reports dyspnea on exertion Resp Reports cough, Reports pain on inspiration, Reports pain with cough, Reports dyspnea on exertion and Denies wheezing GI Reports as per HPI Musc Reports no additional complaints Skin/Breast Reports change in pigmentation Neuro Reports no additional complaints Endo Reports fatigue Juan F/Lymph Denies easy bruising Aller/Immun Denies wheezing Physical Exam Vital Signs: Last Vital Signs Pulse 82 04/26/24 14:00 Pulse Ox 97 04/26/24 14:00 Oxygen Delivery Method Room Air 04/26/24 14:00 BMI result Body Mass Index 23.3 Const General: comfortable and tired appearing Nutritional Appearance: underweight HEENT Head: Yes normocephalic Eyes Sclerae: scleral abnormal bilateral (ictures) Neck Neck: Yes supple Chest Chest palpation & inspection: normal inspection of the chest Resp Effort & Inspection: normal respiratory effort Auscultation: diminished lung sounds Cardio Heart sounds: S1 normal heart sound present, S2 normal heart sound present and Murmur heart sound present GI Palpation (GI): Soft to palpation Skin General skin exam: jaundice Extrem General: No clubbing and No cyanosis Office Procedures 6 Minute Walk Time:: 22:39 SPO2 % at rest: 96 Pulse at rest: 90 SPO2 % during excercise: 88 Pulse during excercise: 109 Distance in yards walked: 100 Adela Score: 6 Supplemental Oxygen: The patient is frail, at rest on RA 96% pox, then walk with my assistance on RA and desaturated briefly to 88%. Stopped and placed 2/pulse and continued walking, improving pox to 94% on 2l/pulse [id number] - 6 Minute Walk Results Reviewed Results Reviewed: personally reviewed CXR 03/2024 with bilateral effusions, CT abd 03/2024 with loculated effusion, calcified plaques and rounded atelectasis Assessment & Plan Assessment & Plan (1) Pleural effusion: Comment: Left sided effusion likely due to blocked TIPS resulting in increase portal pressures and hepatic hydrothorax. Could have a component of trap lung as well. Code(s): J90 - Pleural effusion, not elsewhere classified Category: Medical (2) Liver failure: Code(s): K72.90 - Hepatic failure, unspecified without coma Category: Medical Qualifiers: Hepatic coma status: without hepatic coma Liver failure chronicity: chronic Qualified Code(s): K72.10 - Chronic hepatic failure without coma (3) Round atelectasis: Comment: RLL, chronic with a chronic loculated effusion. Could be related to asbestos with calcified pleural plaque Code(s): J98.11 - Atelectasis Category: Medical (4) Bilateral pleural effusion: Code(s): J90 - Pleural effusion, not elsewhere classified Category: Medical Plan US chest bilateral start oxygen supplementation, requesting conserving valve with b cylinders with activity at 2/pulse and 2l/min while sleeping Diuresis as tolerated F/U 3 months with CXR or sooner if symptoms worsen start Gabapentin 100mg QHS, will titrate to 200mg if not helpful F/U 2-3 months Orders: Orders US chest Today J90 - Pleural effusion, not elsewhere classified Medications: New gabapentin 200 mg (2 x 100 mg) PO BEDTIME 30 days 60 caps 3RF Coding Level of Care Code Est Pt Level 5 (85083) Diagnoses Pleural effusion J90 Chronic liver failure without hepatic coma K72.10 Hepatic coma status: without hepatic coma Liver failure chronicity: chronic Round atelectasis J98.11 Bilateral pleural effusion J90 CPT Codes Coding ([id number]) Time Spent (min) 40
[2024-04-26 22:39] VITALS: PULSE 90; O2SAT 96
== END 2024-04-26 14:37 | disposition home or self-care (01) ==
PROVIDERS: PCP Internal Medicine; Visit Provider Hospitalist
DX: J90 Pleural effusion, not elsewhere classified (principal); K72.10 Chronic hepatic failure without coma; J98.11 Atelectasis
CPT/HCPCS: 94618; 99215

== ENCOUNTER → 2024-04-26 13:57 | Outpatient (BNVA) | payer MEDICARE, SELFPAY | PROVIDERS: PCP Internal Medicine; Visit Provider Hospitalist | DX: J90 Pleural effusion, not elsewhere classified (principal); K72.10 Chronic hepatic failure without coma; J98.11 Atelectasis; Z94.4 Liver transplant status | CPT/HCPCS: 94618; 99212 ==

== ENCOUNTER 2024-05-03 10:30 | Outpatient (REF) | payer MEDICARE, SELFPAY ==
[2024-05-03 12:01] LABS: Basophils Percent Auto 1.1 % (0-2); Eosinophils Absolute Auto 0.1 X10*3/uL (0.0-0.4); Eosinophils Percent Auto 1.8 % (0-4); Hematocrit 27.6 % (42.0-52.0); Hemoglobin 9.1 g/dl (14.0-18.0); Imm Gran Abs Auto 0.04 X10*3/uL (0.00-0.03); Imm Gran Pct Auto 1.4 % (0.0-0.4); Lymphocytes Absolute Auto 0.4 X10*3/uL (1.2-4.9); Lymphocytes Percent Auto 12.5 % (20-40); MANUAL DIFF FLAG SCAN; Mean Corpuscular Hemoglobin 30.4 pg (27.0-33.0); Mean Corpuscular Volume 92.3 fL (80.0-98.0); Monocytes Absolute Auto 0.2 X10*3/uL (0.1-1.2); Monocytes Percent Auto 7.2 % (2-11); Neutrophils Absolute Auto 2.1 x10*3/uL (2.0-8.3); PLT CLUMP 1; Red Blood Count 2.99 X10*6/uL (4.60-5.80); Red Cell Distribution Width 16.1 % (11.0-16.0); SCAN SMEAR FLAG 1; White Blood Count 2.8 X10*3/uL (4.8-10.8)
[2024-05-03 12:19] LABS: Creatinine Urine 166.13 mg/dL; Microalbum/Creatinine Ratio Ur 81.2 ug/mg cr (<30)
[2024-05-03 12:28] LABS: Anion Gap 16 (12-20); Blood Urea Nitrogen 22 mg/dL (9-16); Calcium 9.2 mg/dL (8.4-10.2); Carbon Dioxide 19 mmol/L (22-29); Chloride 110 mmol/L (96-108); Estimated Glomerular Filt Rate > 60; Glucose Random 153 mg/dL (60-115); Potassium 4.7 mmol/L (3.3-5.1); Sodium 140 mmol/L (135-145)
[2024-05-03 12:47] LABS: SLIDE REVIEW VERIFIED
== END 2024-05-03 10:31 | disposition home or self-care (01) ==
LOC: HO.HHCL 10:30
PROVIDERS: Visit Provider Internal Medicine
DX: I10 Essential (primary) hypertension (principal); K74.69 Other cirrhosis of liver; E11.65 Type 2 diabetes mellitus with hyperglycemia
CPT/HCPCS: 36415; 80048; 82043; 82570; 85025

== ENCOUNTER 2024-05-06 12:56 | Outpatient (REF) | payer MEDICARE, SELFPAY ==
--- NOTE | ~2024-05-06 | US_ITS ---
EXAMINATION: US CHEST CLINICAL INFORMATION: Pleural effusion COMPARISON: Chest x-ray from 04/09/2024 TECHNIQUE: Ultrasound evaluation of the bilateral chest FINDINGS: No significant pleural effusion in the right hemithorax. There is a moderate to large simple appearing effusion within the left hemithorax US/US chest IMPRESSION: Moderate to large left pleural effusion
== END 2024-05-06 12:57 | disposition home or self-care (01) ==
LOC: HO.US 12:56
PROVIDERS: PCP Internal Medicine; Visit Provider Hospitalist
DX: J90 Pleural effusion, not elsewhere classified (principal)
CPT/HCPCS: 76604

== ENCOUNTER 2024-06-21 09:38 | Outpatient (REF) | payer MEDICARE, SELFPAY ==
[2024-06-21 12:15] LABS: Anion Gap 14 (12-20); Blood Urea Nitrogen 32 mg/dL (9-16); Carbon Dioxide 18 mmol/L (22-29); Chloride 110 mmol/L (96-108); Cholesterol 189 mg/dL (<200); Estimated Glomerular Filt Rate > 60; Glucose Random 137 mg/dL (60-115); HDL Cholesterol 18 mg/dL (>40); Iron 94 mcg/dL (45-160); LDL Cholesterol Calculated 144 mg/dL (<100); Percent Iron Saturation 47 % (15-50); Potassium 5.3 mmol/L (3.3-5.1); Sodium 137 mmol/L (135-145); Total Iron Binding Capacity 200 mcg/dL (228-428); Triglycerides 136 mg/dL (<150); Unsaturated Iron Binding 106 ug/dL
[2024-06-21 12:26] LABS: Ferritin 95 ng/mL (20-250)
[2024-06-21 12:33] LABS: Folate 11.8 ng/mL (> or = 4.0); Vitamin B12 > 2000 pg/mL (200-900)
== END 2024-06-21 09:39 | disposition home or self-care (01) ==
LOC: HO.HHCL 09:38
PROVIDERS: Visit Provider Internal Medicine
DX: I10 Essential (primary) hypertension (principal); Z94.4 Liver transplant status
CPT/HCPCS: 36415; 80048; 80061; 82607; 82728; 82746; 83540

== ENCOUNTER 2024-06-23 12:24 | Outpatient (REF) | payer MEDICARE, SELFPAY ==
[2024-06-23 14:38] LABS: Alanine Aminotransferase 27 U/L (0-40); Albumin Level 2.5 g/dL (3.5-5.0); Alkaline Phosphatase 228 U/L (39-117); Anion Gap 13 (12-20); Aspartate Amino Transferase 31 U/L (5-37); Bilirubin Total 18.2 mg/dL (0.0-1.0); Blood Urea Nitrogen 32 mg/dL (9-16); Calcium 8.9 mg/dL (8.4-10.2); Carbon Dioxide 20 mmol/L (22-29); Chloride 109 mmol/L (96-108); Estimated Glomerular Filt Rate 56; Glucose Random 182 mg/dL (60-115); Potassium 4.8 mmol/L (3.3-5.1); Sodium 137 mmol/L (135-145); Total Protein 6.2 g/dL (6.5-8.0)
== END 2024-06-23 12:25 | disposition home or self-care (01) ==
LOC: HO.HHCL 12:24
PROVIDERS: Visit Provider Student in an Organized Health Care Education/Training Program
DX: E87.5 Hyperkalemia (principal)
CPT/HCPCS: 36415; 80053

== ENCOUNTER 2024-07-02 14:19 | Outpatient (AMB) | payer MEDICARE, SELFPAY ==
[2024-07-02 14:28] VITALS: PULSE 82; O2SAT 96; BMI 23.8
--- NOTE | 2024-07-02 14:28 | MHC.OFFVIS ---
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 here presenting with a pleural effusion. The patient states that he has been evaluated at the mass was due for many years. We actually met back in 2009 at [facility] were which he was being evaluated for a right-sided loculated pleural effusion what appears to be a rounded atelectasis. He underwent a thoracentesis that time demonstrating serosanguineous drainage from side and was benign nature. Ultimately after that he did undergo his transplant. Unfortunately, 2-3 years ago the patient received a call stating that his liver was no longer functioning. And he was no longer can be for repeat transplant. His liver became cirrhotic again. Started developing significant shortness of breath. therefore, due to the significant portal hypertension the patient underwent a tips procedure. However, after the procedure she was starting to notice worsening shortness of breath. Moderate severity even with minimal activity. Significant orthopnea. The patient was evaluated at [place] with a CT scan in November 2023 demonstrating a large left-sided pleural effusion along chronic findings on right. Patient ultimately went to [facility] where he to undergo a recanalization of the tips that was plugged. Any also underwent a thoracentesis on the left side. We do not those results. However very painful for him. After few days he did recover. His breathing has been better since. Denies any significant shortness of breath. We did go for brief walking oximetry and patient was able maintain a pulse ox of 95 and 6% with activity. Heart was still stable and is distant scores were good breath sounds are okay. Patient have a chest x-ray today. My suspicion is that the fusion is a lot better after opening the tips that was causing increased for hypertension and significant hepatic hydrothorax. Since he appears to have a loculated right-sided pleural Time likely going to resulting worsening proximal right. The patient will undergo a chest x-ray today. otherwise if he is doing well he will return in 3 months with a repeat chest x-ray. 07/02/2024 the patient is here for pulmonary follow-up visit. He is developing worsening shortness of breath. Moderate severity. Hard for him sleep and also to get around the He is already status post tips procedure. He is not a candidate for a redo transplant. He understands that his condition is progressive, but, he would like some relief. He is also having significant pleuritic right-sided chest pains at the area. The oxygen has been helpful, but he can not handle the oxygen tanks and they are too heavy. We will request POC for better portability outside of the house. We did review his chest US with a moderate left sided pleural effusion, and a thick pleura on the right side. We will plan to for a therapeutic thoracentesis. He continues on the diuretics and also monitoring for any worsening renal function. [facility] Medical History (Updated 04/26/24 @ 22:40 by Justino Rosen MD) Bilateral pleural effusion Round atelectasis Hyperammonemia Chronic liver failure without hepatic coma Hydrothorax Loculated pleural effusion Antiphospholipid antibody syndrome H/O: CVA (cerebrovascular accident) H/O pleural effusion Nephrolithiasis Diabetes HTN (hypertension) Hepatitis C Surgical History Liver transplant recipient History of liver transplant H/O hernia repair History of surgery on arm Hx of colonoscopy Family History Father Prostate cancer Mother Diabetes HTN (hypertension) Social History Household Members: Spouse Housing: House Are you a primary career development director to a significant other at home: No Do you presently have visiting nurse or other home services: No Alcohol intake: never Patient Tobacco Use Status: Never used Tobacco Advance Directives Date on File: 11/24/06 service: No Current occupational status: employed Review of Systems Const Reports fatigue ENT Reports no additional complaints Card Denies chest pain and Reports dyspnea on exertion Resp Reports cough, Reports pain on inspiration, Reports pain with cough, Reports dyspnea on exertion and Denies wheezing GI Reports as per HPI Musc Reports no additional complaints Skin/Breast Reports change in pigmentation Neuro Reports no additional complaints Endo Reports fatigue Juan F/Lymph Denies easy bruising Aller/Immun Denies wheezing Physical Exam Vital Signs: Last Vital Signs Pulse 82 07/02/24 14:28 Pulse Ox 96 07/02/24 14:28 Oxygen Delivery Method Room Air 07/02/24 14:28 BMI result Body Mass Index 23.8 Const General: comfortable and tired appearing Nutritional Appearance: underweight HEENT Head: Yes normocephalic Eyes Sclerae: scleral abnormal bilateral (ictures) Neck Neck: Yes supple Chest Chest palpation & inspection: normal inspection of the chest Resp Effort & Inspection: normal respiratory effort Auscultation: diminished lung sounds Cardio Heart sounds: S1 normal heart sound present, S2 normal heart sound present and Murmur heart sound present GI Palpation (GI): Soft to palpation Skin General skin exam: jaundice Extrem General: No clubbing and No cyanosis Assessment & Plan Assessment & Plan (1) Pleural effusion: Comment: Left sided effusion likely due to blocked TIPS resulting in increase portal pressures and hepatic hydrothorax. Could have a component of trap lung as well. Code(s): J90 - Pleural effusion, not elsewhere classified Category: Medical (2) Liver failure: Code(s): K72.90 - Hepatic failure, unspecified without coma Category: Medical Qualifiers: Hepatic coma status: without hepatic coma Liver failure chronicity: chronic Qualified Code(s): K72.10 - Chronic hepatic failure without coma (3) Round atelectasis: Comment: RLL, chronic with a chronic loculated effusion. Could be related to asbestos with calcified pleural plaque Code(s): J98.11 - Atelectasis Category: Medical (4) Bilateral pleural effusion: Code(s): J90 - Pleural effusion, not elsewhere classified Category: Medical Plan US guided thoracentesis on the left side start Wixela [place] as needed continue oxygen supplementation, requestingPOC with activity at 2/pulse for better portability outside of the home continue oxygen 2l/min while sleeping Diuresis as tolerated needs to sleep elevated F/U 2-3 months Orders: Orders US drain thoracentesis w image 07/02/24 J90 - Pleural effusion, not elsewhere classified Medications: New fluticasone propion-salmeterol 250-50 mcg/dose (Wixela Inhub) 1 inh inhalation Q12H 60 ea 11RF 30 days albuterol sulfate 90 mcg/actuation 2 inhalations inhalation Q6H PRN 18 grams 12RF shortness of breath or wheezing 30 days J44.9 - Chronic obstructive pulmonary disease, unspecified Coding Level of Care Code Est Pt Level 4 (40001) Complex EM visit Add On G2211 Diagnoses Pleural effusion J90 Chronic liver failure without hepatic coma K72.10 Hepatic coma status: without hepatic coma Liver failure chronicity: chronic Round atelectasis J98.11 Bilateral pleural effusion J90 Time Spent (min) 28
== END 2024-07-02 14:54 | disposition home or self-care (01) ==
PROVIDERS: PCP Internal Medicine; Visit Provider Hospitalist
DX: J90 Pleural effusion, not elsewhere classified (principal); K72.10 Chronic hepatic failure without coma; J98.11 Atelectasis
CPT/HCPCS: 99214; G2211

== ENCOUNTER → 2024-07-02 14:19 | Outpatient (BNVA) | payer MEDICARE, SELFPAY | PROVIDERS: PCP Internal Medicine; Visit Provider Hospitalist | DX: J44.9 Chronic obstructive pulmonary disease, unspecified (principal); J90 Pleural effusion, not elsewhere classified; J98.11 Atelectasis; K72.10 Chronic hepatic failure without coma; R06.02 Shortness of breath | CPT/HCPCS: 99212 ==

== ENCOUNTER 2024-07-13 07:34 | Day surgery (SDC) | payer MEDICARE, SELFPAY ==
--- NOTE | ~2024-07-13 | XR_ITS ---
EXAMINATION: XR CHEST CLINICAL INFORMATION: Status post thoracentesis COMPARISON: Chest ultrasound on 05/06/2024 TECHNIQUE: Frontal view of the chest was obtained. FINDINGS: The cardiomediastinal silhouette is enlarged but stable. Resolution of the left-sided pleural effusion. No pneumothorax. There is a trace right pleural effusion with diffuse interstitial opacities. XR/XR chest 1V IMPRESSION: No pneumothorax after thoracentesis. Electronically signed by: Vonda Rios MD 07/24/2024 03:10 PM EDT
--- NOTE | ~2024-07-13 | US_ITS ---
PROCEDURE: Ultrasound-guided left thoracentesis History: Left pleural effusion Specimen: None Access: 5 [place] Yueh catheter Medications: 10 mL 1% lidocaine TECHNIQUE/FINDINGS Appropriate preprocedural clinical history and imaging studies were reviewed. The patient was brought to the department and placed in the seated position. Ultrasound images of the left thorax were obtained to localize a large pleural effusion. Permanent ultrasound images were saved. Risks and benefits and possible complications were discussed with the patient and consent form was signed. An area of the patient's left back was prepped and draped in usual sterile fashion. 10 mL of 1% lidocaine was used to obtain local anesthesia of the skin and deeper tissues. A standard small bore needle was introduced to sample pleural fluid and demonstrate a safe access route. A 5 [place] Yueh catheter was then used to access the pleural cavity. 1000 ml of leesa fluid was removed passively. The catheter was then removed. A dressing was applied. A postprocedure chest x-ray will be performed and will be dictated separately. There were no immediate complications. The procedure was performed by James Fontaine PA-C and supervised by Dr. Barrios US/US thoracentesis Impression: Ultrasound-guided left thoracentesis Electronically signed by: Davonte Barrios MD 07/29/2024 12:29 PM EDT
[2024-07-13 08:36] VITALS: BP 152/50; PULSE 85; RESP 18; TEMP 36.8; O2SAT 96
[2024-07-13 08:59] LABS: INTERNATIONAL NORM RATIO 2.6 (0.9-1.1); Prothrombin Time 31.5 SEC (11.1-13.3)
[2024-07-13 09:02] LABS: Partial Thromboplastin Time 52.1 SEC (26.0-36.8)
[2024-07-13 09:12] LABS: Glucose, Whole Blood 147 mg/dL (60-115)
[2024-07-13 09:13] VITALS: BMI 23.8
--- NOTE | 2024-07-13 09:14 | PC.NURSE ---
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
[2024-07-13 09:16] LABS: Platelet Count (Citrate) 31 X10*3/uL (150-310)
[2024-07-13 10:20] VITALS: BP 139/45; PULSE 83; RESP 16; TEMP 37; O2SAT 97
[2024-07-13 10:45] VITALS: BP 152/53; PULSE 83; RESP 18; TEMP 37; O2SAT 98
== END 2024-07-13 11:07 | disposition home or self-care (01) ==
PROVIDERS: Physician Assistant Surgical; PCP Internal Medicine; Visit Provider Hospitalist
DX: J90 Pleural effusion, not elsewhere classified (principal); J98.11 Atelectasis; K72.10 Chronic hepatic failure without coma; Z94.4 Liver transplant status; R06.02 Shortness of breath; R06.01 Orthopnea; R07.81 Pleurodynia; E11.9 Type 2 diabetes mellitus without complications; I10 Essential (primary) hypertension; Z99.81 Dependence on supplemental oxygen; Z88.8 Allergy status to other drugs, medicaments and biological substances; Z98.890 Other specified postprocedural states; Z87.891 Personal history of nicotine dependence
CPT/HCPCS: 32555; 36415; 71045; 82947; 85610; 85730

== ENCOUNTER → 2024-07-13 09:04 | Outpatient (BNV) | payer MEDICARE, SELFPAY | PROVIDERS: PCP Internal Medicine; Visit Provider Student in an Organized Health Care Education/Training Program | DX: J90 Pleural effusion, not elsewhere classified (principal) | CPT/HCPCS: 32555; 76937 ==

== ENCOUNTER 2024-07-21 18:47 | Inpatient (IN) | payer MEDICARE, SELFPAY ==
--- NOTE | ~2024-07-21 | XR_ITS ---
EXAMINATION: XR CHEST CLINICAL INFORMATION: Status post chest tube removal COMPARISON: Chest x-ray on 07/24/2024 TECHNIQUE: Frontal view of the chest was obtained. FINDINGS: The cardiac mediastinal silhouette is stable. There is loss of lung volume on the right with mediastinal shift, also stable. There are scattered areas of increased interstitial and alveolar opacities as well as chronic interstitial disease. Interval removal of a left basilar pigtail catheter. No pleural effusion or pneumothorax. XR/XR chest 1V IMPRESSION: No pneumothorax after chest tube removal. Electronically signed by: Vonda Rios MD 07/26/2024 08:22 AM EDT
--- NOTE | ~2024-07-21 | US_ITS ---
EXAMINATION: US ABDOMEN LIMITED CLINICAL INFORMATION: Assess TIPS patency. COMPARISON: Ultrasound study of November 27, [address] abdomen of March 25, 2024. TECHNIQUE: Real-time imaging of the right upper quadrant abdominal viscera. FINDINGS: Limitations in imaging. PANCREAS: The head and body appear unremarkable without evidence of abnormal mass or peripancreatic inflammatory change. The tail of pancreas is obscured by overlying bowel gas. LIVER: Liver has a lobulated contour with mildly prominent intrahepatic bile ducts. There was limited visualization of the left lobe. There is prominence of the intrahepatic portal veins. No focal hepatic lesion. GALLBLADDER: Status post cholecystectomy. COMMON BILE DUCT: Normal in caliber measuring 0.5 cm in diameter. RIGHT KIDNEY: Limited evaluation. No hydronephrosis. Cannot accurately comment on whether there may be any lesions present or on true size. FREE FLUID: None. VELOCITY MEASUREMENTS: Hepatic Vein Side: 128 cm/s. Mid Shunt: Not visualized due to overlying bowel gas. The shunt appears to be patent with flow being seen at both the hepatic vein side and the portal vein side. Portal Vein Side: 181 cm/s. Portal vein dilated to 2.1 cm in diameter. Umbilical vein is not visualized. US/US abdomen limited IMPRESSION: Patent TIPS with flow seen in the hepatic vein side and portal vein side but with very limited imaging. The velocities fall in normal range. Electronically signed by: Rios Camacho MD 07/22/2024 05:29 PM EDT
--- NOTE | ~2024-07-21 | US_ITS ---
EXAMINATION: US ABDOMEN LIMITED CLINICAL INFORMATION: Assess TIPS patency. COMPARISON: Ultrasound study of November 27, [address] abdomen of March 25, 2024. TECHNIQUE: Real-time imaging of the right upper quadrant abdominal viscera. FINDINGS: Limitations in imaging. PANCREAS: The head and body appear unremarkable without evidence of abnormal mass or peripancreatic inflammatory change. The tail of pancreas is obscured by overlying bowel gas. LIVER: Liver has a lobulated contour with mildly prominent intrahepatic bile ducts. There was limited visualization of the left lobe. There is prominence of the intrahepatic portal veins. No focal hepatic lesion. GALLBLADDER: Status post cholecystectomy. COMMON BILE DUCT: Normal in caliber measuring 0.5 cm in diameter. RIGHT KIDNEY: Limited evaluation. No hydronephrosis. Cannot accurately comment on whether there may be any lesions present or on true size. FREE FLUID: None. VELOCITY MEASUREMENTS: Hepatic Vein Side: 128 cm/s. Mid Shunt: Not visualized due to overlying bowel gas. The shunt appears to be patent with flow being seen at both the hepatic vein side and the portal vein side. Portal Vein Side: 181 cm/s. Portal vein dilated to 2.1 cm in diameter. Umbilical vein is not visualized. US/US duplex arterial venous comp IMPRESSION: Patent TIPS with flow seen in the hepatic vein side and portal vein side but with very limited imaging. The velocities fall in normal range. Electronically signed by: Rios Camacho MD 07/22/2024 05:29 PM EDT
--- NOTE | ~2024-07-21 | XR_ITS ---
EXAMINATION: XR CHEST CLINICAL INFORMATION: Follow-up of left pleural effusion COMPARISON: Chest x-ray July 22, 2024 TECHNIQUE: Frontal portable view of the chest was obtained. 0735 hours FINDINGS: Heart size is enlarged. Moderate central pulmonary vascular prominence with increased lung markings similar to prior chest x-ray. Mediastinal structures shifted to the right. Pigtail catheter present at the left lung base. No left-sided pleural effusion. Blunting of right costophrenic angle due to a right pleural effusion similar in volume to prior study July 22, 2024. No pneumothorax. Curvilinear metallic density again seen over the right lung base. TIPS catheter right upper quadrant. Surgical clips right upper quadrant. XR/XR chest 1V IMPRESSION: 1. No change in the appearance of the chest compared to prior chest x-ray July 22, 2024. 2. Pigtail catheter at the left lung base. No left-sided pleural effusion. 3. Right pleural effusion similar in volume to prior study. Electronically signed by: Nick Tyler MD 07/23/2024 03:12 PM EDT
--- NOTE | ~2024-07-21 | CT_ITS ---
EXAMINATION: CT CHEST WITHOUT CONTRAST CLINICAL INFORMATION: Shortness of breath with question of mass left lower lobe COMPARISON: Chest radiograph earlier today, CT abdomen and pelvis 03/25/2024, CT chest 11/27/2023 TECHNIQUE: Multidetector volumetric CT imaging of the chest was done. Axial MIP volume rendering provided. Sagittal and coronal reformatted images were obtained. This CT examination was performed using dose optimization techniques as appropriate, variously including the following: *Automated exposure control *Adjustment of mA and/or kV according to patient size (this includes techniques or standardized protocols for targeted exams where dose is matched to indication/reason for exam; i.e. extremities or head) *Use of iterative reconstruction technique DLP: 201 mGy-cm FINDINGS: LUNGS and PLEURA: There is a large left pleural effusion present and a small right pleural effusion. Pleural effusion right is loculated with some calcification present along the pleural surface. There is bibasilar consolidation present with air bronchograms. No pulmonary nodules are seen. There is some mild prominence present. MEDIASTINUM: The heart is enlarged. Tiny pericardial effusion is present. CORONARY ARTERY CALCIFICATION: Moderate AXILLA/CHEST WALL: Bilateral gynecomastia. No axillary adenopathy. UPPER ABDOMEN: The spleen is enlarged measuring over 15 cm in greatest length. The liver has cirrhotic morphology and a TIPS is present. A couple surgical clips are present in the region of the elda hepatis secondary to liver transplant. OSSEOUS STRUCTURES: Unremarkable. CT/CT chest wo IV con IMPRESSION: 1. Large left pleural effusion and small right pleural effusion. 2. Bibasilar consolidation/atelectasis. 3. Cardiomegaly with tiny pericardial effusion. 4. Cirrhotic liver with TIPS and splenomegaly. Fleischner guidelines were followed. Electronically signed by: Stanley Vidal MD 07/21/2024 11:18 PM EDT
--- NOTE | ~2024-07-21 | XR_ITS ---
EXAMINATION: XR CHEST CLINICAL INFORMATION: Chest tube placement COMPARISON: 07/21/24 TECHNIQUE: Upright frontal portable view of the chest was obtained. FINDINGS: There is kyphosis. The mediastinum is shifted to the right. There is tortuosity of the aorta. There are scattered opacities in the left lung. There is now a drain projecting over the left lower chest and there has been evacuation of some of the previously demonstrated left pleural fluid. There is no definite pneumothorax. There is opacification of the right lower chest with some lucency in the medial lower right short chest. There is some pleural or extrapleural density in the periphery of the right mid chest. There is apical thickening on the right. There are scattered opacities in the right lung A curvilinear metallic density projects over the right lower chest. Partially included opaque stent perhaps a TIPS projects in the right mid abdomen. There are multiple surgical clips. Limited bone detail XR/XR chest 1V IMPRESSION: Left pleural drain present. Evacuation of most of the left pleural fluid Electronically signed by: Robbi Khanna MD 07/22/2024 05:49 PM EDT
--- NOTE | ~2024-07-21 | XR_ITS ---
EXAMINATION: XR CHEST CLINICAL INFORMATION: Left pleural effusion COMPARISON: Chest x-ray on 07/23/2024 TECHNIQUE: Frontal view of the chest was obtained. FINDINGS: The cardiac mediastinal silhouette is enlarged but stable. This diffuse interstitial opacities and a trace right pleural effusion. There is a left-sided pigtail catheter at the left base. No pneumothorax. XR/XR chest 1V IMPRESSION: Stable exam. Electronically signed by: Vonda Rios MD 07/24/2024 03:09 PM EDT
--- NOTE | ~2024-07-21 | XR_ITS ---
EXAMINATION: XR CHEST CLINICAL INFORMATION: Shortness of breath. COMPARISON: July 13, 2024. TECHNIQUE: Portable AP view of the chest was obtained. FINDINGS: The study is limited by portable technique and suboptimal inspiration. Bibasilar hazy densities suggest pleural fluid, pleural thickening, atelectasis, infiltrates, and/or mass, left worse than right. These findings appear similar on the right and worse on the left compared with 8 days prior. Shift of mediastinum toward the right, suggesting an element of volume loss on the right, unchanged. The cardiac silhouette is suboptimally evaluated. Bones appear unremarkable. Partially imaged right upper quadrant metallic stents and surgical clips. XR/XR chest 1V IMPRESSION: Findings as above. Electronically signed by: Hayes Daniels MD 07/21/2024 08:17 PM EDT
--- NOTE | 2024-07-21 19:11 | ED_ITS ---
HPI - General Adult General Chief complaint: Dyspnea Stated complaint: SOB Time Seen by Provider: 07/21/24 20:37 Source: patient and family Mode of arrival: ambulatory Limitations: no limitations History of Present Illness ED Provider: Dr. Elizabeth Motta HPI narrative: Patient comes to the emergency room complaining of shortness of breath. Patient states that he is known to have bilateral pleural effusions, occasionally needs thoracentesis to drain the fluid. Patient states that he has known history of cirrhosis, hepatitis-C, liver transplant in 2010 in [facility]. Patient states that he feels up fluid frequently. Patient states that his doctor at [facility] informed him that the patient's LFTs have been gradually getting more elevated, however due to the patient's age and medical problems, he is not a candidate to receive another liver transplant, and eventually he will go into liver failure. Patient states that is what is bothering him the most is the shortness of breath. Patient states that he has been told that his right lung does not expand well and the left keeps getting filled with fluid. Related Data Home Medications ?Medication ?Instructions ?Recorded ?Confirmed entecavir 0.5 mg tablet (Baraclude) 1 tab PO DAILY 12/22/20 07/13/24 magnesium oxide 800 mg PO DAILY 12/22/20 07/13/24 insulin aspart U-100 100 unit/mL See Protocol subcut TID 06/03/23 07/13/24 (3 mL) subcutaneous pen (Novolog FlexPen U-100 Insulin aspart) lactulose 10 gram/15 mL oral 30 ml PO TID 06/03/23 07/13/24 solution multivitamin 1 tab PO DAILY 06/03/23 07/13/24 pantoprazole 40 mg tablet,delayed 40 mg PO BID 06/03/23 07/13/24 release rifaximin 550 mg tablet (Xifaxan) 550 mg PO BID 06/03/23 07/13/24 calcium carbonate 600 mg-vitamin 1 cap PO BID 08/26/23 07/13/24 D3 12.5 mcg (500 unit) capsule (Calcium 600 with Vitamin D3) furosemide 10 mg/mL injection 40 mg IVPUSH Q OTHER DAY 10/16/23 07/13/24 solution tacrolimus 1 mg capsule, 0.5 mg PO DAILY@1700 10/16/23 07/13/24 immediate-release amlodipine 10 mg tablet 10 mg PO DAILY 04/26/24 07/13/24 Previous Rx's ?Medication ?Instructions ?Recorded insulin glargine 100 unit/mL (3 20 unit (0.2 mL) subcut BEDTIME 06/05/23 mL) subcutaneous pen (Lantus #15 mL Solostar U-100 Insulin) amoxicillin 500 mg-potassium 1 tab PO BID #14 tabs 03/25/24 clavulanate 125 mg tablet (Augmentin) gabapentin 100 mg capsule 200 mg (2 x 100 mg) PO BEDTIME 30 04/26/24 days #60 caps albuterol sulfate 90 mcg/actuation 2 inh inhalation Q6H PRN shortness 07/02/24 aerosol inhaler of breath or wheezing 30 days #18 grams fluticasone 250 mcg-salmeterol 50 1 inh inhalation Q12H 30 days #60 07/02/24 mcg/dose blistr powdr for ea inhalation (Wixela Inhub) Allergies Allergy/AdvReac Type Severity Reaction Status Date / Time lisinopril AdvReac Unknown cough Verified 07/21/24 19:17 Review of Systems 2 Review of Systems: Constitutional : No Weight loss, No Fever, No Chills, No Night Sweats, No Fatigue, No Malaise ENT/Mouth : No Hearing loss, No Ear Pain, No Nasal Congestion, No Sinus Pain, No Hoarseness, No sore throat, No Rhinorrhea, No Swallowing Difficulty Eyes: No Eye Pain, No Swelling, No Redness, No Foreign Body, No Discharge, No Vision Changes Cardiovascular : No Chest Pain, No SOB, No Dyspnea on Exertion, No Orthopnea, No Edema, No Palpitations Respiratory : Complaining of occasional dry cough, shortness of breath with minimal exertion Gastrointestinal : No Nausea, No Vomiting, No Diarrhea, No Constipation, No abdominal Pain, No Hematochezia, No Melena Genitourinary : no irregular bleeding, No Dysuria, No Urinary Frequency, No Hematuria, No Urinary Incontinence, No Urgency, No Flank Pain, No Urinary Flow Changes, No Hesitancy Musculoskeletal : No joint pain, No Myalgias, No Joint Swelling Skin : No Skin Lesions, No rash Neuro : No Weakness, No Numbness, No Paresthesias, No Loss of Consciousness, No Dizziness, No Headache Psych : No Anxiety/Panic, No Depression, No SI/HI/AH/VH, No Social Issues, Heme/Lymph: No Bruising, No Bleeding,No Lymphadenopathy Endocrine : No Polyuria, No Polydipsia, No Temperature Intolerance [facility] Past Medical History Medical History (Updated 07/22/24 @ 02:06 by Elizabeth Motta MD) Congestive heart failure Bilateral pleural effusion Round atelectasis Hyperammonemia Chronic liver failure without hepatic coma Hydrothorax Loculated pleural effusion Antiphospholipid antibody syndrome H/O: CVA (cerebrovascular accident) H/O pleural effusion Nephrolithiasis Diabetes HTN (hypertension) Hepatitis C Surgical History Liver transplant recipient History of liver transplant H/O hernia repair History of surgery on arm Hx of colonoscopy Family History Family History Father Prostate cancer Mother Diabetes HTN (hypertension) Social History Social History Household Members: Spouse Housing: House Are you a primary child care education coordinator to a significant other at home: No Do you presently have visiting nurse or other home services: No Alcohol intake: never Patient Tobacco Use Status: Former Tobacco user Advance Directives: Yes Advance Directives Information Provided: No Advance Directives on File: No Advance Directives Date on File: 11/24/06 Do you have a plan to hurt others: No Plan service: No Current occupational status: employed Physical Exam ED Vital Signs: Vital Signs - 24 hr 07/21/24 19:14 Temperature 98.4 F Pulse Rate 86 Respiratory Rate 22 H Blood Pressure 157/53 H Pulse Oximetry 98 Oxygen Delivery Method Room Air BMI result Body Mass Index 30.0 Const Other: Appearance: Alert. Oriented X3. No acute distress. Eyes: Pupils equal, round and reactive to light. Icteric sclerae ENT: Pharynx normal. Neck: Normal inspection. Neck supple. No lymph nodes noted. No crepitus CVS: Normal heart rate and rhythm. Pulses normal. Normal S1 and S2 Respiratory: No respiratory distress. Bilateral crackles, oxygen saturation 100% on 2 L nasal cannula Abdomen: Soft , moderately distended, no pain to palpation in abdomen Skin: Skin warm and dry. Diffusely jaundiced. Normal skin turgor. Extremities: No lower extremity edema. No Lacerations. No Rash Neuro: Oriented X 3. No motor deficit. No sensory deficit. Moving all extremities. No slurred speech. CN 2 through 12 grossly intact Psych: calm, cooperative, normal affect Course Course Course Narrative: This is an RME done by NARDA Marcano: Additional HPI, ROS, PE not included below will be deferred to primary provider. 74 year old male hx chf, hyperammonemia, liver transplant ( 2011 at [facility]), hep c, HTN presents w/ sob, weakness, feeling unwell. Reports had a L drained form his left lung last week. Appearance: Alert.? Oriented X3.? No acute cardiopulmonary distress distress.? Head: Normocephalic, atraumatic, no step-offs or deformities CVS: Pulses normal.? Respiratory: + diminished breath sounds on the right Abdomen: Soft and nontender.? Skin: ? Normal skin color. Extremities: 5/5 strength to bilateral upper and lower extremities Neuro: Oriented X 3.? No motor deficit.? No sensory deficit. Medications Administered Discontinued Medications Generic Name Dose Route Start Last Admin Trade Name Freq PRN Reason Stop Dose Admin Magnesium Sulfate 2 gm in 50 mls @ 25 mls/hr 07/21/24 22:05 07/22/24 00:30 Magnesium Sulfate/H2o IV 07/22/24 00:04 Infused ONCE ONE Infusion Medical Decision Making Medical Decision Making [facility] Narrative: My interpretation of labs: Hematology at baseline, slightly anemic 8.2, chemistry at baseline, magnesium 1.4, given IV magnesium. T bilirubin 15.6, chronic for the patient along with the elevated LFTs. BNP 1300 which is patient's baseline. Patient's PT 30.6 INR 2.5. Patient known to be slowly going into hepatic failure secondary to liver rejection, patient not a candidate for transplant -my interpretation of chest x-ray, pleural effusion on the left. Radiology report shows pleural thickening versus atelectasis versus infiltrates in or mass on the left. Therefore, we proceeded with a CT scan of the chest -radiology report from CT scan: Large pleural effusion on the left, small right pleural effusion, cardiomegaly with tiny pericardial effusion -overall, patient looks sick, seems that patient has had shortness of breath with exertion in the past. However, overall patient does not seem to be doing well. -I discussed the patient with Dr. Haile, patient being admitted Differential Diagnosis Differential Diagnoses: The differential diagnosis associated with the presentation includes (Pleural effusions, CHF, lung mass) Admission/Observation Consideration of admission/observation: Escalation of care including admission/observation considered Consult Healthcare Provider Management of the patient was discussed with: Hospitalist Lab Data MDM Lab Attestation statement: I reviewed the patient's lab results. 07/21/24 20:39 07/21/24 20:39 Labs: Lab Results 07/21/24 07/21/24 Range/Units 20:20 20:39 WBC 3.1 L (4.8-10.8) X10*3/uL RBC 2.42 L (4.60-5.80) X10*6/uL Hgb 8.2 L (14.0-18.0) g/dl Hct 24.8 L (42.0-52.0) % MCV 102.5 H (80.0-98.0) fL MCH 33.9 H (27.0-33.0) pg MCHC 33.1 (31.0-36.0) g/dl RDW 16.1 H (11.0-16.0) % Plt Count TNP MPV TNP Immature Gran % (Auto) 0.6 H (0.0-0.4) % Neut % (Auto) 76.8 H (45-73) % Lymph % (Auto) 7.3 L (20-40) % [place] % (Auto) 13.1 H (2-11) % Eos % (Auto) 1.9 (0-4) % Baso % (Auto) 0.3 (0-2) % Lymph # (Auto) 0.2 L (1.2-4.9) X10*3/uL [place] # (Auto) 0.4 (0.1-1.2) X10*3/uL Eos # (Auto) 0.1 (0.0-0.4) X10*3/uL Baso # (Auto) 0.0 (0.0-0.2) X10*3/uL Abs Immat Gran (auto) 0.02 (0.00-0.03) X10*3/uL Absolute Neuts (auto) 2.4 (2.0-8.3) x10*3/uL Absolute Nucleated RBC 0.000 (0.0-0.012) X10*3/uL Nucleated RBC % (auto) 0.0 (0.0-0.2) /100WBC Smear Tech's Comments VERIFIED PT 30.6 H (11.1-13.3) SEC INR 2.5 H (0.9-1.1) Sodium 138 (135-145) mmol/L Potassium 3.9 (3.3-5.1) mmol/L Chloride 110 H (96-108) mmol/L Carbon Dioxide 20 L (22-29) mmol/L Anion Gap 12 (12-20) BUN 31 H (9-16) mg/dL Creatinine 1.24 (0.5-1.4) mg/dL Estim Creat Clear Calc 49.7 Estimated GFR 57 Random Glucose 280 H (60-115) mg/dL Calcium 9.0 (8.4-10.2) mg/dL Magnesium 1.4 L* (1.6-2.6) mg/dL Total Bilirubin 15.6 H (0.0-1.0) mg/dL Direct Bilirubin 4.2 H (0.0-0.5) mg/dL AST 29 (5-37) U/L ALT 26 (0-40) U/L Alkaline Phosphatase 278 H (39-117) U/L Ammonia 74 H (13-55) umol/L Troponin I High Sens 19.8 D (<3.5-35.0) ng/L B-Natriuretic Peptide 1304 H (<100) pg/mL Total Protein 6.3 L (6.5-8.0) g/dL Albumin 2.4 L (3.5-5.0) g/dL Influenza Type A (PCR) NEGATIVE (Negative) Influenza Type B (PCR) NEGATIVE (Negative) RSV RNA Qual (PCR) NEGATIVE (Negative) SARS-CoV-2 RNA (RT-PCR) NEGATIVE (Negative) Independent Interpretation I performed an independent interpretation of an: Plain X-Ray and CT Scan Radiology Impression Discussion of test interpretation with radiology: I have reviewed the radiologist's reading. Radiologist Impression: FINDINGS: LUNGS and PLEURA: There is a large left pleural effusion present and a small right pleural effusion. Pleural effusion right is loculated with some calcification present along the pleural surface. There is bibasilar consolidation present with air bronchograms. No pulmonary nodules are seen. There is some mild prominence present. MEDIASTINUM: The heart is enlarged. Tiny pericardial effusion is present. CORONARY ARTERY CALCIFICATION: Moderate AXILLA/CHEST WALL: Bilateral gynecomastia. No axillary adenopathy. UPPER ABDOMEN: The spleen is enlarged measuring over 15 cm in greatest length. The liver has cirrhotic morphology and a TIPS is present. A couple surgical clips are present in the region of the elda hepatis secondary to liver transplant. OSSEOUS STRUCTURES: Unremarkable. CT/CT chest wo IV con IMPRESSION: 1. Large left pleural effusion and small right pleural effusion. 2. Bibasilar consolidation/atelectasis. 3. Cardiomegaly with tiny pericardial effusion. 4. Cirrhotic liver with TIPS and splenomegaly. Critical Care Time Critical Care Time Critical Care Time: Yes Total Critical Care Time: 60 Attestation: I have personally provided critical care time. Time includes review of lab data, radiology results, discussion with consultants, and monitoring for potential decompensation. Intervention performed as documented. Discharge Plan Discharge Clinical Impression: Pleural effusion, Hypomagnesemia Patient Disposition: Admitted As Inpatient Prescriptions: No Action entecavir [Baraclude] 0.5 mg tablet 1 tab PO DAILY magnesium oxide 400 mg magnesium Tablet 800 mg PO DAILY calcium carbonate-vitamin D3 [Calcium 600 with Vitamin D3] 600 mg-12.5 mcg (500 unit) capsule 1 cap PO BID amoxicillin-pot clavulanate [Augmentin] 500-125 mg tablet 1 tab PO BID Qty: 14 0RF pantoprazole 40 mg tablet,delayed release (DR/EC) 40 mg PO BID insulin aspart U-100 [Novolog FlexPen U-100 Insulin] 100 unit/mL (3 mL) insulin pen See Protocol subcut TID Protocol: Insulin Correction Scale Less than or equal to 110 ---- Give (units): 0 111 to 150 Give (units): 0 151 to 200 Give (units): 2 201 to 250 Give (units): 4 251 to 300 Give (units): 6 301 to 350 Give (units): 8 Greater than 350 Give (units): 10 Call MD if Blood Glucose > : 350 lactulose 10 gram/15 mL solution 30 ml PO TID Xifaxan 550 mg tablet 550 mg PO BID multivitamin Tablet 1 tab PO DAILY insulin glargine [Lantus Solostar U-100 Insulin] 100 unit/mL (3 mL) insulin pen 20 unit subcut BEDTIME Qty: 15 0RF furosemide 10 mg/mL solution 40 mg IVPUSH Q OTHER DAY Protocol: Hold for SBP< HOLD for SBP < : 90 tacrolimus 1 mg capsule 0.5 mg PO DAILY@1700 fluticasone propion-salmeterol [Wixela Inhub] 250-50 mcg/dose blister with device 1 inh inhalation Q12H 30 Days Qty: 60 11RF albuterol sulfate 90 mcg/actuation HFA aerosol inhaler 2 inh inhalation Q6H PRN (Reason: shortness of breath or wheezing) 30 Days Qty: 18 12RF amlodipine 10 mg tablet 10 mg PO DAILY gabapentin 100 mg capsule 200 mg PO BEDTIME 30 Days Qty: 60 3RF Print Language: Macanese
[2024-07-21 19:14] VITALS: BP 157/53; PULSE 86; RESP 22; TEMP 36.9; O2SAT 98
--- NOTE | 2024-07-21 19:16 | ECG_ITS ---
Test Reason : DYSPNEA Blood Pressure : / mmHG Vent. Rate : 085 BPM Atrial Rate : 085 BPM P-R Int : 178 ms QRS Dur : 076 ms QT Int : 370 ms P-R-T Axes : 031 012 050 degrees QTc Int : 440 ms Normal sinus rhythm Low voltage QRS Nonspecific T wave abnormality Abnormal ECG When compared with ECG of 27-NOV-2023 10:54, No significant change was found Referred By: Meaghan Marcano Electronically Signed By:MARLEY GRACE
[2024-07-21 20:49] LABS: Hemoglobin 8.2 g/dl (14.0-18.0); Imm Gran Abs Auto 0.02 X10*3/uL (0.00-0.03); Imm Gran Pct Auto 0.6 % (0.0-0.4); MANUAL DIFF FLAG SCAN; Mean Corpuscular Hemoglobin 33.9 pg (27.0-33.0); Red Blood Count 2.42 X10*6/uL (4.60-5.80); SCAN SMEAR FLAG 1
[2024-07-21 20:51] LABS: Basophils Percent Auto 0.3 % (0-2); Eosinophils Absolute Auto 0.1 X10*3/uL (0.0-0.4); Eosinophils Percent Auto 1.9 % (0-4); Hematocrit 24.8 % (42.0-52.0); Lymphocytes Absolute Auto 0.2 X10*3/uL (1.2-4.9); Lymphocytes Percent Auto 7.3 % (20-40); Mean Corpuscular HGB Conc 33.1 g/dl (31.0-36.0); Mean Corpuscular Volume 102.5 fL (80.0-98.0); Monocytes Absolute Auto 0.4 X10*3/uL (0.1-1.2); Monocytes Percent Auto 13.1 % (2-11); Neutrophils Absolute Auto 2.4 x10*3/uL (2.0-8.3); Neutrophils Percent Auto 76.8 % (45-73); PLT CLUMP 1; Red Cell Distribution Width 16.1 % (11.0-16.0)
[2024-07-21 20:54] LABS: INTERNATIONAL NORM RATIO 2.5 (0.9-1.1); Prothrombin Time 30.6 SEC (11.1-13.3)
[2024-07-21 20:55] LABS: PLT ABN DIST 1
[2024-07-21 21:01] LABS: Ammonia 74 umol/L (13-55)
[2024-07-21 21:09] LABS: White Blood Count 3.1 X10*3/uL (4.8-10.8)
[2024-07-21 21:10] LABS: B Type Natriuretic Peptide 1304 pg/mL (<100); SLIDE REVIEW VERIFIED
[2024-07-21 21:15] LABS: Troponin-I High Sensitivity 19.8 ng/L (<3.5-35.0)
[2024-07-21 21:25] LABS: Influenza A PCR NEGATIVE (Negative); Influenza B PCR NEGATIVE (Negative); Resp Syncy Virus RNA Qual PCR NEGATIVE (Negative); SARS COV2 PCR INHOUSE NEGATIVE (Negative)
[2024-07-21 21:54] LABS: Alanine Aminotransferase 26 U/L (0-40); Albumin Level 2.4 g/dL (3.5-5.0); Alkaline Phosphatase 278 U/L (39-117); Anion Gap 12 (12-20); Aspartate Amino Transferase 29 U/L (5-37); Bilirubin Total 15.6 mg/dL (0.0-1.0); Blood Urea Nitrogen 31 mg/dL (9-16); Carbon Dioxide 20 mmol/L (22-29); Chloride 110 mmol/L (96-108); Creatinine Clr Calc Pharmacy 49.7; Estimated Glomerular Filt Rate 57; Glucose Random 280 mg/dL (60-115); Magnesium 1.4 mg/dL (1.6-2.6); Potassium 3.9 mmol/L (3.3-5.1); Sodium 138 mmol/L (135-145); Total Protein 6.3 g/dL (6.5-8.0)
[2024-07-21] MEDS: Magnesium Sulfate/H2O 2 GM/50 ML PIGGYBACK IV (22:26)
--- NOTE | 2024-07-21 23:38 | PM.IMHP ---
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 Patient was seen by outpatient pulmonology and underwent left-sided thoracentesis about a week ago. Patient states that for the last couple of days he has been having dyspnea which is worse with exertion. Also complains of orthopnea. Was using 2 L at night but recently has been using 2 L supplemental oxygen throughout the day. No fever, chills, productive cough, palpitations, abdominal pain, changes in urinary or bowel habits. Does endorse pleuritic chest discomfort. In the emergency department, imaging with large left pleural effusion and small right pleural effusion Review of Systems Constitutional: Constitutional: Reports fatigue, Reports malaise and Reports weakness Cardiovascular: Cardiovascular: Reports dyspnea on exertion and Reports orthopnea Respiratory: Respiratory: Reports dyspnea on exertion Gastrointestinal: Gastrointestinal: Reports no additional gastrointestinal complaints Genitourinary: Genitourinary: Reports no additional male genitourinary complaints Neurologic: Reports weakness Endocrine: Endocrine: Reports fatigue [facility] Medical History (Updated 07/22/24 @ 00:22 by Hernandez Haile MD) Congestive heart failure Bilateral pleural effusion Round atelectasis Hyperammonemia Chronic liver failure without hepatic coma Hydrothorax Loculated pleural effusion Antiphospholipid antibody syndrome H/O: CVA (cerebrovascular accident) H/O pleural effusion Nephrolithiasis Diabetes HTN (hypertension) Hepatitis C Family History Father Prostate cancer Mother Diabetes HTN (hypertension) Surgical History Liver transplant recipient History of liver transplant H/O hernia repair History of surgery on arm Hx of colonoscopy Social History Household Members: Spouse Housing: House Are you a primary healthcare architect to a significant other at home: No Do you presently have visiting nurse or other home services: No Alcohol intake: never Patient Tobacco Use Status: Former Tobacco user Advance Directives: Yes Advance Directives Information Provided: No Advance Directives on File: No Advance Directives Date on File: 11/24/06 Do you have a plan to hurt others: No Plan service: No Current occupational status: employed Meds Allergies Allergy/AdvReac Type Severity Reaction Status Date / Time lisinopril AdvReac Unknown cough Verified 07/21/24 19:17 Active Medications: Current Medications Magnesium Sulfate (Magnesium Sulfate/H2o) 2 gm in 50 mls @ 25 mls/hr IV ONCE ONE Stop: 07/22/24 00:04 Last Admin: 07/21/24 22:26 Dose: 25 mls/hr Home Medications ?Medication ?Instructions ?Recorded ?Confirmed ?Last Taken ?Type entecavir 0.5 mg tablet (Baraclude) 1 tab PO DAILY 12/22/20 07/13/24 10/15/23 History 1 magnesium oxide 800 mg PO DAILY 12/22/20 07/13/24 10/15/23 History insulin aspart U-100 100 unit/mL See Protocol subcut TID 06/03/23 07/13/24 10/15/23 History (3 mL) subcutaneous pen (Novolog FlexPen U-100 Insulin aspart) lactulose 10 gram/15 mL oral 30 ml PO TID 06/03/23 07/13/24 10/15/23 History solution multivitamin 1 tab PO DAILY 06/03/23 07/13/24 06/02/23 History pantoprazole 40 mg tablet,delayed 40 mg PO BID 06/03/23 07/13/24 07/13/24 History release rifaximin 550 mg tablet (Xifaxan) 550 mg PO BID 06/03/23 07/13/24 07/13/24 History calcium carbonate 600 mg-vitamin 1 cap PO BID 08/26/23 07/13/24 Unknown History D3 12.5 mcg (500 unit) capsule (Calcium 600 with Vitamin D3) furosemide 10 mg/mL injection 40 mg IVPUSH Q OTHER DAY 10/16/23 07/13/24 10/15/23 History solution tacrolimus 1 mg capsule, 0.5 mg PO DAILY@1700 10/16/23 07/13/24 07/13/24 History immediate-release amlodipine 10 mg tablet 10 mg PO DAILY 04/26/24 07/13/24 07/13/24 History Physical Exam Vital Signs and Narrative: Vital Signs: Last Vital Signs Temp 98.4 F 07/21/24 19:14 Pulse 86 07/21/24 19:14 Resp 22 H 07/21/24 19:14 BP 157/53 H 07/21/24 19:14 Pulse Ox 98 07/21/24 19:14 O2 Del Method Room Air 07/21/24 19:14 BMI result Body Mass Index 30.0 Middle-aged male lying in bed in mild distress on supplemental oxygen Neck supple Regular rate and rhythm, S1-S2 heard Tachypnea with bilateral crackles Abdomen distended, nontender, no guarding, no rigidity Patient is awake, alert and oriented to self, place, time and person ; no focal motor deficit Psych: Normal mood Bilateral pedal edema Results Labs 07/21/24 20:39 07/21/24 20:39 Labs: Laboratory Results - last 24 hr 07/21/24 07/21/24 20:20 20:39 MCV 102.5 H MCH 33.9 H MCHC 33.1 RDW 16.1 H Plt Count TNP MPV TNP Immature Gran % (Auto) 0.6 H Neut % (Auto) 76.8 H Lymph % (Auto) 7.3 L [place] % (Auto) 13.1 H Eos % (Auto) 1.9 Baso % (Auto) 0.3 Lymph # (Auto) 0.2 L [place] # (Auto) 0.4 Eos # (Auto) 0.1 Baso # (Auto) 0.0 Abs Immat Gran (auto) 0.02 Absolute Neuts (auto) 2.4 Absolute Nucleated RBC 0.000 Nucleated RBC % (auto) 0.0 Smear Tech's Comments VERIFIED PT 30.6 H INR 2.5 H Anion Gap 12 Estim Creat Clear Calc 49.7 Estimated GFR 57 Random Glucose 280 H Calcium 9.0 Magnesium 1.4 L* Total Bilirubin 15.6 H AST 29 ALT 26 Alkaline Phosphatase 278 H Ammonia 74 H Troponin I High Sens 19.8 D B-Natriuretic Peptide 1304 H Total Protein 6.3 L Albumin 2.4 L Influenza Type A (PCR) NEGATIVE Influenza Type B (PCR) NEGATIVE RSV RNA Qual (PCR) NEGATIVE SARS-CoV-2 RNA (RT-PCR) NEGATIVE Imaging Radiologist's Impressions: Impressions Chest X-Ray 07/21/24 19:04 IMPRESSION: Findings as above. Electronically signed by: Hayes Daniels MD 07/21/2024 08:17 PM EDT RP Chest CT 07/21/24 22:46 IMPRESSION: 1. Large left pleural effusion and small right pleural effusion. 2. Bibasilar consolidation/atelectasis. 3. Cardiomegaly with tiny pericardial effusion. 4. Cirrhotic liver with TIPS and splenomegaly. Fleischner guidelines were followed. 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 #. Acute respiratory distress on hypoxic respiratory failure due to left-sided pleural effusion, recurrent: Will admit patient with supplemental oxygen. Had left-sided thoracentesis about a week ago. Imaging with large left-sided pleural effusion, likely due to blocked TIPS resulting in increase portal pressure and hepatic hydrothorax. Consulting thoracic surgery and pulmonology. Also has chronic right lung atelectasis with chronic loculated effusion. #. Acute on chronic congestive heart failure with preserved EF: Initiating IV diuresis. Strict I's and O's. Low-salt diet #. Insulin-dependent diabetes mellitus with hyperglycemia: Initiating basal plus insulin regimen #. Hepatitis-B, chronic: On entecavir #. Hyperbilirubinemia with hyperammonemia in a patient with liver cirrhosis: On tacrolimus, lactulose, Xifaxan. Consulting Gastroenterology. Patient was told he is not a candidate for repeat liver transplant #. Hypomagnesemia: Repleted #. H/o of APLA: Off anticoagulation due to varices and loss of anticardiolipin antibody #. Pancytopenia: Due to cirrhosis Med rec pending DVT prophylaxis: Mechanical Full code. Discussed with patient at bedside Admit as inpatient and will require two night minimum hospital stay for monitoring of volume status, need for thoracentesis, monitoring of respiratory status (as above), which is not possible in a lesser acute setting. Specialist consult pending Quality Stroke Does the patient have a stroke diagnosis?: No VTE Prior VTE?: No VTE Risk Level:: Medical - moderate - high VTE Device Contraindication: N/A - Device Ordered VTE Drug Contraindication: Treatment Not Indicated
--- NOTE | 2024-07-21 23:59 | PC.NURSE ---
This business writer assumed care of this Pt at 2100. Pt A&Ox3, reports ABD pressure/lung pain. at bedside reports Pt has been more SOB in the past 4 days, worsens with exertion. Pt wears supplemental O2 via NC 2L. Pt noted to be jaundice, with anasarca, dyspea with rolling from side to side. [place] cath placed. Pt requesting bedpan, has 3 loose BM d/t lactulose given.
[2024-07-22] VITALS (14 sets, daily range): BP systolic 146–176; BP diastolic 57–77; PULSE 86–96; RESP 12–18; TEMP 36.6–37.7; O2SAT 97–100
[2024-07-22 00:06] LABS: Bilirubin Direct 4.2 mg/dL (0.0-0.5)
[2024-07-22] MEDS: Furosemide 40 MG/4 ML VIAL IVPUSH (01:52)
[2024-07-22] MEDS: Gabapentin 100 MG CAPSULE 200 MG PO ×2 (01:52→20:30)
[2024-07-22] MEDS: Lactulose 20 GM/30 ML SOLUTION 30 GM PO ×2 (01:57→20:30)
[2024-07-22] MEDS: 0.9 % Sodium Chloride Flush 3 ML SYRINGE IVFLUSH ×3 (02:06→17:46)
[2024-07-22 02:23] LABS: Glucose, Whole Blood 198 mg/dL (60-115)
[2024-07-22] MEDS: Albuterol/Iprat 2.5/0.5MG 3 ML AMPUL.NEB INHALE (02:25)
[2024-07-22] MEDS: Insulin Lispro 100 UNIT/ML 3 ML VIAL SUBCUT ×3 (02:25→18:11)
[2024-07-22] MEDS: Insulin Glargine,Hum.rec.anlog 100 UNIT/ML 10 ML VIAL 10 UNIT SUBCUT (02:25)
[2024-07-22] MEDS: Morphine Sulfate 2 MG/ML CARTRIDGE IVPUSH ×2 (05:36→16:21)
[2024-07-22 05:56] LABS: Glucose, Whole Blood 188 mg/dL (60-115)
--- NOTE | 2024-07-22 07:35 | PC.NURSE ---
Resumed care of pt at 0700. Pt resting in bed quietly, a/ox3, crackles heard throughout right lung field, left lung field cta, pt mildly SOB, 2L NC maintaining O2 sat at 97-99%, S1 and S2 heard, no c/o CP at this time, abdomen soft and non-tender, no abd pain. Pt updated on plan of care and NPO status. Vitals updated, call ochoa within reach, all needs met at this time.
[2024-07-22 08:41] LABS: Basophils Percent Auto 0.5 % (0-2); Eosinophils Absolute Auto 0.1 X10*3/uL (0.0-0.4); Eosinophils Percent Auto 2.1 % (0-4); Hemoglobin 8.1 g/dl (14.0-18.0); Mean Corpuscular Volume 100.4 fL (80.0-98.0); Red Cell Distribution Width 16.5 % (11.0-16.0); SCAN SMEAR FLAG 1
--- NOTE | 2024-07-22 08:42 | PM.CNPUL ---
History of Present Illness History of Present Illness Consult date: 07/22/24 Chief complaint: Dyspnea Narrative: This is an inpatient pulmonary consultation. 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 Patient was seen by outpatient pulmonology and underwent left-sided thoracentesis about a week ago. After the thoracentesis, he did well and his lung expanded well. The Patient states that for the last couple of days he has been having dyspnea which is worse with exertion. Also complains of orthopnea. Was using 2 L at night but recently has been using 2 L supplemental oxygen throughout the day. No fever, chills, productive cough, palpitations, abdominal pain, changes in urinary or bowel habits. Does endorse pleuritic chest discomfort. The patient did undergo a CT scan of the chest which I personally reviewed. It appears that he has recurrent large sided left-sided pleural effusion in a loculated small right-sided effusion. Does have compressive atelectasis and consolidation primarily in the left lower lobe. Review of Systems Constitutional: Constitutional: Reports fatigue, Reports malaise and Reports weakness Cardiovascular: Cardiovascular: Reports dyspnea on exertion and Reports orthopnea Respiratory: Respiratory: Reports dyspnea on exertion Gastrointestinal: Gastrointestinal: Reports no additional gastrointestinal complaints Genitourinary: Genitourinary: Reports no additional male genitourinary complaints Musculoskeletal: Musculoskeletal: Reports muscle weakness Neurologic: Reports weakness Endocrine: Endocrine: Reports fatigue [facility] Past Medical History Medical History (Updated 07/22/24 @ 08:46 by Justino Rosen MD) Congestive heart failure Bilateral pleural effusion Round atelectasis Hyperammonemia Chronic liver failure without hepatic coma Hydrothorax Loculated pleural effusion Antiphospholipid antibody syndrome H/O: CVA (cerebrovascular accident) H/O pleural effusion Nephrolithiasis Diabetes HTN (hypertension) Hepatitis C Family History Family History Father Prostate cancer Mother Diabetes HTN (hypertension) Surgical History Surgical History Liver transplant recipient History of liver transplant H/O hernia repair History of surgery on arm Hx of colonoscopy Social History Social History Household Members: Spouse Housing: House Are you a primary day care provider to a significant other at home: No Do you presently have visiting nurse or other home services: No Alcohol intake: never Patient Tobacco Use Status: Former Tobacco user Smoked in Last 30 Days: No Use of substances other than those prescribed or required for medical reasons: No Advance Directives: Yes Advance Directives Information Provided: No Advance Directives on File: No Advance Directives Date on File: 11/24/06 Do you have a plan to hurt others: No Plan Nutrition Risks: No Nutritional Risk service: No Current occupational status: employed Meds Allergies Allergy/AdvReac Type Severity Reaction Status Date / Time lisinopril AdvReac Unknown cough Verified 07/21/24 19:17 Active Medications: Current Medications Acetaminophen (Acetaminophen 325 Mg Tablet) 650 mg PO Q6H PRN PRN Reason: Pain, Mild (Pain Scale 1-3), fever or headache Albuterol/Ipratropium (Albuterol/Iprat 2.5/0.5mg 3 Ml Ampul.Neb) 3 ml INHALE Q4H PRN PRN Reason: Wheezing Last Admin: 07/22/24 02:25 Dose: 3 ml Calcium Carbonate (Calcium Carbonate 750 Mg Tab.Chew) 750 mg PO Q4H PRN PRN Reason: Heartburn Furosemide (Furosemide 40 Mg Tablet) 40 mg PO DAILY CONSTANTINO; Protocol Glucose (Glucose Gel 15 Gm Gel..Gram.) 15 gm PO Q15M PRN; Protocol PRN Reason: per Hypoglycemia Standing Ord. Dextrose (D10) 250 mls @ 750 mls/hr IV Q15M PRN; Protocol PRN Reason: per Hypoglycemia Standing Ord. Insulin Human Lispro (Insulin Lispro 100 Unit/Ml 3 Ml Vial) 0 unit SUBCUT Q6H CONSTANTINO; Protocol Last Admin: 07/22/24 07:00 Dose: 2 unit Lactulose (Lactulose 20 Gm/30 Ml Solution) 30 gm PO TID CONSTANTINO Last Admin: 07/22/24 01:57 Dose: 30 gm Magnesium Hydroxide (Milk Of Magnesia 30 Ml Oral.Susp) 30 ml PO DAILY PRN PRN Reason: Constipation Melatonin (Melatonin 3 Mg Tablet) 6 mg PO BEDTIME PRN PRN Reason: Insomnia Morphine Sulfate (Morphine Sulfate 2 Mg/Ml Cartridge) 2 mg IVPUSH Q4H PRN; Protocol PRN Reason: Pain, Severe (Pain Scale 7-10) Last Admin: 07/22/24 05:36 Dose: 2 mg Ondansetron HCl (Ondansetron Hcl 4 Mg/2 Ml Vial) 4 mg IVPUSH Q8H PRN PRN Reason: Nausea and Vomiting Sodium Chloride (0.9 % Sodium Chloride Flush 3 Ml Syringe) [address] [facility] Last Admin: 07/22/24 07:27 Dose: 3 ml Home Medications ?Medication ?Instructions ?Recorded ?Confirmed ?Last Taken ?Type entecavir 0.5 mg tablet (Baraclude) 1 tab PO DAILY 12/22/20 07/13/24 10/15/23 History 1 magnesium oxide 800 mg PO DAILY 12/22/20 07/13/24 10/15/23 History insulin aspart U-100 100 unit/mL See Protocol subcut TID 06/03/23 07/13/24 10/15/23 History (3 mL) subcutaneous pen (Novolog FlexPen U-100 Insulin aspart) lactulose 10 gram/15 mL oral 30 ml PO TID 06/03/23 07/13/24 10/15/23 History solution multivitamin 1 tab PO DAILY 06/03/23 07/13/24 06/02/23 History pantoprazole 40 mg tablet,delayed 40 mg PO BID 06/03/23 07/13/24 07/13/24 History release rifaximin 550 mg tablet (Xifaxan) 550 mg PO BID 06/03/23 07/13/24 07/13/24 History calcium carbonate 600 mg-vitamin 1 cap PO BID 08/26/23 07/13/24 Unknown History D3 12.5 mcg (500 unit) capsule (Calcium 600 with Vitamin D3) tacrolimus 1 mg capsule, 0.5 mg PO DAILY@1700 10/16/23 07/13/24 07/13/24 History immediate-release amlodipine 10 mg tablet 10 mg PO DAILY 04/26/24 07/13/24 07/13/24 History amiloride 5 mg tablet 20 mg PO QAM 07/22/24 Unknown History brimonidine 0.2 % eye drops 1 drp ophthalmic (eye) BID 07/22/24 Unknown History fluticasone propionate 50 2 spray intranasal DAILY 07/22/24 Unknown History mcg/actuation nasal spray,suspension furosemide 40 mg tablet 40 mg PO QAM 07/22/24 Unknown History Physical Exam Vital Signs: Vital Signs: Last Vital Signs Temp 98.4 F 07/22/24 07:31 Pulse 89 07/22/24 07:31 Resp 15 07/22/24 07:31 BP 149/57 H 07/22/24 07:31 Pulse Ox 99 07/22/24 07:31 O2 Del Method Nasal Cannula 07/22/24 07:31 O2 Flow Rate 2 07/22/24 07:31 BMI result Body Mass Index 30.0 Const: General: comfortable and tired appearing Nutritional Appearance: underweight HEENT: Head: Yes normocephalic Eyes: Sclerae: scleral abnormal bilateral (ictures) Neck: Neck: Yes supple Chest: Chest palpation & inspection: normal inspection of the chest Resp: Effort & Inspection: normal respiratory effort Auscultation: diminished lung sounds and bronchial breath sounds Cardio: Heart sounds: S1 normal heart sound present, S2 normal heart sound present and Murmur heart sound present GI: Palpation (GI): Soft to palpation Skin: General skin exam: jaundice Extrem: General: No clubbing and No cyanosis Results Laboratory Findings 07/21/24 20:39 07/21/24 20:39 ABG, PT/INR, D-dimer: PT/INR, D-dimer PT 30.6 SEC (11.1-13.3) H 07/21/24 20:39 INR 2.5 (0.9-1.1) H 07/21/24 20:39 Abnormal lab findings: Abnormal Labs 07/21/24 07/22/24 07/22/24 20:39 02:19 05:52 WBC 3.1 L RBC 2.42 L Hgb 8.2 L Hct 24.8 L MCV 102.5 H MCH 33.9 H RDW 16.1 H Immature Gran % (Auto) 0.6 H Neut % (Auto) 76.8 H Lymph % (Auto) 7.3 L [place] % (Auto) 13.1 H Lymph # (Auto) 0.2 L PT 30.6 H INR 2.5 H Chloride 110 H Carbon Dioxide 20 L BUN 31 H POC Glucose 198 H 188 H Random Glucose 280 H Magnesium 1.4 L* Total Bilirubin 15.6 H Direct Bilirubin 4.2 H Alkaline Phosphatase 278 H Ammonia 74 H B-Natriuretic Peptide 1304 H Total Protein 6.3 L Albumin 2.4 L Assessment and Plan (1) Pleural effusion: Status: Acute (2) Congestive heart failure: Qualifiers: Heart failure type: unspecified Heart failure chronicity: acute on chronic Qualified Code(s): I50.9 - Heart failure, unspecified Status: Acute (3) Round atelectasis: Status: Acute (4) Liver failure: Qualifiers: Hepatic coma status: without hepatic coma Liver failure chronicity: chronic Qualified Code(s): K72.10 - Chronic hepatic failure without coma Status: Acute (5) Anemia: Qualifiers: Anemia type: unspecified type Qualified Code(s): D64.9 - Anemia, unspecified Status: Acute Plan The patient is presenting again with recurrent large sided pleural effusion resulting worsening shortness of breath. The patient did have a thoracentesis about a week ago which was successful and expanding the lung fully. No evidence of any trapped lung. The fact that this fluid accumulated so quickly may be related to hepatic hydrothorax if indeed tips is not patent. In addition to that consider malignant conditions that can result in quick accumulation of fluid, infectious conditions and or less likely hemothorax. Recommendations: Start ceftriaxone Arrange for repeat thoracentesis on the left side, for both diagnostic and therapeutic purposes. The fluid should be sent for cytology cell count and differential, Gram stain and culture, LDH, total protein, albumin, adenosine deaminase Would recommend Doppler study of the liver to assess patency TIPS Continue oxygen supplementation to maintain a pulse ox above 90% Guarded condition Procedures Date of Service Date of Service: 07/22/24
[2024-07-22 08:43] LABS: Hematocrit 24.4 % (42.0-52.0); Imm Gran Abs Auto 0.03 X10*3/uL (0.00-0.03); Imm Gran Pct Auto 0.8 % (0.0-0.4); Lymphocytes Absolute Auto 0.4 X10*3/uL (1.2-4.9); Lymphocytes Percent Auto 11.2 % (20-40); MANUAL DIFF FLAG SCAN; Mean Corpuscular HGB Conc 33.2 g/dl (31.0-36.0); Mean Corpuscular Hemoglobin 33.3 pg (27.0-33.0); Monocytes Absolute Auto 0.4 X10*3/uL (0.1-1.2); Monocytes Percent Auto 9.4 % (2-11); Neutrophils Absolute Auto 2.9 x10*3/uL (2.0-8.3); PLT CLUMP 1; Red Blood Count 2.43 X10*6/uL (4.60-5.80)
[2024-07-22 09:01] LABS: PLT ABN DIST 1
[2024-07-22 09:02] LABS: White Blood Count 3.8 X10*3/uL (4.8-10.8)
[2024-07-22 09:03] LABS: Alanine Aminotransferase 26 U/L (0-40); Albumin Level 2.3 g/dL (3.5-5.0); Alkaline Phosphatase 250 U/L (39-117); Anion Gap 9 (12-20); Aspartate Amino Transferase 28 U/L (5-37); Bilirubin Total 16.7 mg/dL (0.0-1.0); Blood Urea Nitrogen 28 mg/dL (9-16); Carbon Dioxide 24 mmol/L (22-29); Chloride 111 mmol/L (96-108); Estimated Glomerular Filt Rate > 60; Glucose Random 201 mg/dL (60-115); Magnesium 1.6 mg/dL (1.6-2.6); Potassium 3.8 mmol/L (3.3-5.1); Sodium 140 mmol/L (135-145); Total Protein 6.2 g/dL (6.5-8.0)
[2024-07-22 09:08] LABS: Platelet Count 32 X10*3/uL (160-400)
[2024-07-22 09:09] LABS: SLIDE REVIEW VERIFIED
[2024-07-22 09:11] LABS: Platelet Count (Citrate) 42 X10*3/uL (150-310)
--- NOTE | 2024-07-22 09:21 | PHA.MEDREC ---
Addendum entered by Gustavo Lawton [facility] 07/22/24 09:55: MED REC CHECKED BY [facility] Original Note: Pharmacy Consult ? Medication Reconciliation Pharmacy has completed the medication reconciliation. Spoke to patient through Mental Hygienist service [facility]. patient was just about to be transferred to get a procedure done. patient states to call his Jasmyne. Spoke to Jasmyne over the phone to confirm patients medications. states patient no longer takes Amlodipine 10 mg daily, Multivitamin. Novolog Flexpen U-100 is 4-12 units TID per sliding scale, Lantus Solostar U-100 is 24 units at bedtime.
[2024-07-22] MEDS: cefTRIAXone sodium 1 GM in 0.9 % Sodium Chloride 50 ML IV (09:43)
--- NOTE | 2024-07-22 09:44 | PC.NURSE ---
Care of Pt assumed as Pt transferred into ED5 d/t need for chest tube placement. VSS, A&Ox3 Awaiting PLT count back from this AM, possible need for PLT prior to procedure. Additional 20g placed in R forearm. Pt medicated per JAN.
[2024-07-22] MEDS: Doxycycline Hyclate 100 MG in 0.9 % Sodium Chloride 250 ML 166.67 MG IV (10:02)
--- NOTE | 2024-07-22 11:15 | P.CNGI_ITS ---
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 Patient stated that he is known to have bilateral pleural effusions, occasionally needs thoracentesis to drain the fluid. Patient reported that he fills up with fluid frequently and he has been told that his right lung does not expand well and the left keeps getting filled with fluid.. Patient notes his doctor at [facility] (Dr Correa) informed him that the patient's LFTs have been gradually getting more elevated, however due to the patient's age and medical problems, he is not a candidate to receive another liver transplant, and eventually he will go into liver failure. Hx obtained from the pt and his with the help of a Bengali high school foreign language teacher Pt noted to have elevated LFTs for the past 7-8 months. LFTs on admission without sigificant change from the past with TB of 15.6 and AP of 278 Pt denies smoking or ETOH abuse Patient was transferred from the [facility] hospital in May, and sent to [facility] for acute hepatitis and liver failure, but apparently not a candidate for re transplant due to his co morbidities and age Review of Systems 2 Constitutional: Constitutional: Denies chills and Denies fever(s) ENT: Denies dizziness Cardiovascular: Cardiovascular: Denies chest pain and Reports dyspnea Respiratory: Respiratory: Denies cough and Reports dyspnea Gastrointestinal: Gastrointestinal: Denies diarrhea, Denies nausea and Denies vomiting Integumentary/Breasts: Skin/Breast: Denies rash and Reports jaundice Neurologic: Denies dizziness PMFSH Past Medical History Medical History (Updated 07/22/24 @ 08:46 by Justino Rosen MD) Congestive heart failure Bilateral pleural effusion Round atelectasis Hyperammonemia Chronic liver failure without hepatic coma Hydrothorax Loculated pleural effusion Antiphospholipid antibody syndrome H/O: CVA (cerebrovascular accident) H/O pleural effusion Nephrolithiasis Diabetes HTN (hypertension) Hepatitis C Family History Family History Father Prostate cancer Mother Diabetes HTN (hypertension) Surgical History Surgical History (Updated 07/22/24 @ 16:48 by Cain Milian MD) Liver transplant recipient History of liver transplant H/O hernia repair History of surgery on arm Hx of colonoscopy Social History Social History Household Members: Spouse Housing: House Are you a primary care transition coordinator to a significant other at home: No Do you presently have visiting nurse or other home services: No Alcohol intake: never Patient Tobacco Use Status: Former Tobacco user Smoked in Last 30 Days: No Use of substances other than those prescribed or required for medical reasons: No Advance Directives: Yes Advance Directives Information Provided: No Advance Directives on File: No Advance Directives Date on File: 11/24/06 Do you have a plan to hurt others: No Plan Nutrition Risks: No Nutritional Risk service: No Current occupational status: employed Meds Allergies Allergy/AdvReac Type Severity Reaction Status Date / Time lisinopril AdvReac Unknown cough Verified 07/21/24 19:17 Active Medications: Current Medications Acetaminophen (Acetaminophen 325 Mg Tablet) 650 mg PO Q6H PRN PRN Reason: Pain, Mild (Pain Scale 1-3), fever or headache Albuterol/Ipratropium (Albuterol/Iprat 2.5/0.5mg 3 Ml Ampul.Neb) 3 ml INHALE Q4H PRN PRN Reason: Wheezing Last Admin: 07/22/24 02:25 Dose: 3 ml Calcium Carbonate (Calcium Carbonate 750 Mg Tab.Chew) 750 mg PO Q4H PRN PRN Reason: Heartburn Furosemide (Furosemide 40 Mg Tablet) 40 mg PO DAILY [facility]; Protocol Glucose (Glucose Gel 15 Gm Gel..Gram.) 15 gm PO Q15M PRN; Protocol PRN Reason: per Hypoglycemia Standing Ord. Dextrose (D10) 250 mls @ 750 mls/hr IV Q15M PRN; Protocol PRN Reason: per Hypoglycemia Standing Ord. Ceftriaxone Sodium 1 gm/ (Sodium Chloride) 50 mls @ 100 mls/hr IV Q24H [facility] Last Infusion: 07/22/24 09:59 Dose: Infused Doxycycline Hyclate 100 mg/ (Sodium Chloride) 250 mls @ 166.67 mls/hr IV Q12H [facility] Last Admin: 07/22/24 10:02 Dose: 166.67 mls/hr Insulin Human Lispro (Insulin Lispro 100 Unit/Ml 3 Ml Vial) 0 unit SUBCUT Q6H [facility]; Protocol Last Admin: 07/22/24 07:00 Dose: 2 unit Lactulose (Lactulose 20 Gm/30 Ml Solution) 30 gm PO TID [facility] Last Admin: 07/22/24 09:19 Dose: Not Given Magnesium Hydroxide (Milk Of Magnesia 30 Ml Oral.Susp) 30 ml PO DAILY PRN PRN Reason: Constipation Melatonin (Melatonin 3 Mg Tablet) 6 mg PO BEDTIME PRN PRN Reason: Insomnia Morphine Sulfate (Morphine Sulfate 2 Mg/Ml Cartridge) 2 mg IVPUSH Q4H PRN; Protocol PRN Reason: Pain, Severe (Pain Scale 7-10) Last Admin: 07/22/24 05:36 Dose: 2 mg Ondansetron HCl (Ondansetron Hcl 4 Mg/2 Ml Vial) 4 mg IVPUSH Q8H PRN PRN Reason: Nausea and Vomiting Sodium Chloride (0.9 % Sodium Chloride Flush 3 Ml Syringe) 3 ml IVFLUSH QSHIFT [facility] Last Admin: 07/22/24 07:27 Dose: 3 ml Home Medications ?Medication ?Instructions ?Recorded ?Confirmed ?Last Taken ?Type entecavir 0.5 mg tablet (Baraclude) 0.5 mg PO DAILY 12/22/20 07/22/24 07/21/24 History magnesium oxide 400 mg PO DAILY 12/22/20 07/22/24 07/21/24 History insulin aspart U-100 100 unit/mL See Protocol subcut TID 06/03/23 07/22/24 07/21/24 History (3 mL) subcutaneous pen (Novolog FlexPen U-100 Insulin aspart) lactulose 10 gram/15 mL oral 30 ml PO TID 06/03/23 07/22/24 07/21/24 History solution pantoprazole 40 mg tablet,delayed 40 mg PO BID@0630,1630 06/03/23 07/22/24 07/21/24 History release rifaximin 550 mg tablet (Xifaxan) 550 mg PO BID@0630,1630 06/03/23 07/22/24 07/21/24 History calcium carbonate 600 mg-vitamin 1 cap PO BID 08/26/23 07/22/24 07/21/24 History D3 12.5 mcg (500 unit) capsule (Calcium 600 with Vitamin D3) tacrolimus 1 mg capsule, 0.5 mg PO DAILY@1700 10/16/23 07/22/24 07/21/24 History immediate-release amiloride 5 mg tablet 20 mg PO DAILY 07/22/24 07/22/24 07/21/24 History brimonidine 0.2 % eye drops 1 drp ophthalmic (eye) BID 07/22/24 07/22/24 07/21/24 History fluticasone propionate 50 2 spray intranasal DAILY PRN 07/22/24 07/22/24 07/21/24 History mcg/actuation nasal Allergy Symptoms spray,suspension furosemide 40 mg tablet 40 mg PO DAILY 07/22/24 07/22/24 07/21/24 History insulin glargine 100 unit/mL (3 24 unit subcut BEDTIME 07/22/24 07/22/24 07/21/24 History mL) subcutaneous pen (Lantus Solostar U-100 Insulin) Physical Exam 2 Vital Signs: Vital Signs: Last Vital Signs Temp 97.9 F 07/22/24 11:11 Pulse 88 07/22/24 11:11 Resp 12 07/22/24 11:11 BP 147/70 H 07/22/24 11:11 Pulse Ox 100 07/22/24 10:48 O2 Del Method Nasal Cannula 07/22/24 10:48 O2 Flow Rate 2 07/22/24 10:48 BMI result Body Mass Index 30.0 Const: General: ill appearing and tired appearing Nutritional Appearance: t hin Orientation/consciousness: patient oriented x3 Limitations: language barrier HEENT: Head: Yes normal to inspection Ears: hearing grossly normal bilaterally Eyes: Sclerae: sclerae normal Pupils: Equal, round and reactive pupils present Neck: Neck: Yes normal visual inspection Chest: Chest palpation & inspection: normal inspection of the chest Resp: Effort & Inspection: normal respiratory effort, able to speak in complete sentences, no respiratory distress, no tracheal deviation and no use of accessory muscles Auscultation: clear to auscultation bilaterally Cardio: Palpation: normal PMI Rate: regular rate Rhythm: regular rhythm Heart sounds: S1 normal heart sound present, S2 normal heart sound present and no murmurs GI: Inspection: Yes distended Palpation (GI): nontender Auscultation: n ormal bowel sounds Rectal Exam - Male: Yes deferred Skin: General skin exam: jaundice Neuro: General: patient oriented x3 and moves all extremities Cranial nerves: Yes Equal, round and reactive pupils present Extrem: General: Yes pedal edema Psych: Appearance: grossly normal Mental Status: mental status grossly normal Results Labs 07/22/24 08:33 07/22/24 08:33 Labs: Short CBC 07/21/24 07/22/24 Range/Units 20:39 08:33 WBC 3.1 L 3.8 L (4.8-10.8) X10*3/uL Hgb 8.2 L 8.1 L (14.0-18.0) g/dl Hct 24.8 L 24.4 L (42.0-52.0) % Plt Count TNP 32 L D BMP 07/21/24 07/22/24 20:39 08:33 Sodium 138 140 Potassium 3.9 3.8 Chloride 110 H 111 H Carbon Dioxide 20 L 24 BUN 31 H 28 H Creatinine 1.24 1.14 Calcium 9.0 9.0 Liver Function 07/21/24 07/22/24 Range/Units 20:39 08:33 Total Bilirubin 15.6 H 16.7 H (0.0-1.0) mg/dL Direct Bilirubin 4.2 H (0.0-0.5) mg/dL AST 29 28 (5-37) U/L ALT 26 26 (0-40) U/L Alkaline Phosphatase 278 H 250 H (39-117) U/L Albumin 2.4 L 2.3 L (3.5-5.0) g/dL Assessment and Plan (1) Anemia: Qualifiers: Anemia type: unspecified type Qualified Code(s): D64.9 - Anemia, unspecified Status: Acute (2) Liver failure: Qualifiers: Hepatic coma status: without hepatic coma Liver failure chronicity: c hronic Qualified Code(s): K72.10 - Chronic hepatic failure without coma Status: Acute (3) Liver transplant recipient: Status: Acute Plan 74 year old Bengali-speaking male with history of anti cardiolipin antibody syndrome, hepatitis-C / liver cirrhosis status post liver transplant in 2010 at [facility], and 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 Patient reported that he fills up with fluid frequently and he has been told that his right lung does not expand well and the left keeps getting filled with fluid.. Patient notes his doctor at [facility] (Dr Correa) informed him that the patient's LFTs have been gradually getting more elevated, however due to the patient's age and medical problems, he is not a candidate to receive another liver transplant, and eventually he will go into liver failure. Pt noted to have elevated LFTs for the past 7-8 months. LFTs on admission without sigificant change from the past with TB of 15.6 and AP of 278 RECOMMENDATIONS: 1. Agree with IV antibiotics and pain medications 2. Continue Rifaximin and lactulose for hepatic encephalopathy 3. Agree with Duplex US to check TIPS patency 4. Tacrolimus level - added to am labs 5. Consider hospice care if family agrees since prognosis is poor Pt was discussed with his transplant chemist helper, Dr Correa, Procedures Date of Service Date of Service: 07/22/24
--- NOTE | 2024-07-22 11:50 | HO.PM.IMPN ---
Subjective Subjective Date of Service: 07/22/24 Interval History: This history was taken in German from the patient. C/o leg edema, dyspnea Dry cough. NO fever or sputum Endorses pleuritic chest pain Review of Systems Review of Systems: Yes all other systems are reviewed and are negative Physical Exam Vital Signs: Vital Signs: Last Vital Signs Temp 97.9 F 07/22/24 11:29 Pulse 88 07/22/24 11:29 Resp 12 07/22/24 11:29 BP 154/73 H 07/22/24 11:29 Pulse Ox 100 07/22/24 10:48 O2 Del Method Nasal Cannula 07/22/24 10:48 O2 Flow Rate 2 07/22/24 10:48 BMI result Body Mass Index 30.0 Gen: in no acute distress HEENT: sclera icteric, moist mucus membranes Neck: supple Lungs: diminished on L Heart: regular rate and rhythm, no murmurs Abd: soft, non-tender, non-distended Ext: 1+ leg edema Skin: warm/well-perfused, jaundiced Neuro: alert and oriented x3, no asterixis, no focal weakness Psych: appropriate affect Objective Data Active Medications Acetaminophen (Acetaminophen 325 Mg Tablet) 650 mg PO Q6H PRN PRN Reason: Pain, Mild (Pain Scale 1-3), fever or headache Albuterol/Ipratropium (Albuterol/Iprat 2.5/0.5mg 3 Ml Ampul.Neb) 3 ml INHALE Q4H PRN PRN Reason: Wheezing Last Admin: 07/22/24 02:25 Dose: 3 ml Documented By: SILVIA Calcium Carbonate (Calcium Carbonate 750 Mg Tab.Chew) 750 mg PO Q4H PRN PRN Reason: Heartburn Furosemide (Furosemide 40 Mg Tablet) 40 mg PO DAILY [facility]; Protocol Glucose (Glucose Gel 15 Gm Gel..Gram.) 15 gm PO Q15M PRN; Protocol PRN Reason: per Hypoglycemia Standing Ord. Dextrose (D10) 250 mls @ 750 mls/hr IV Q15M PRN; Protocol PRN Reason: per Hypoglycemia Standing Ord. Ceftriaxone Sodium 1 gm/ (Sodium Chloride) 50 mls @ 100 mls/hr IV Q24H [facility] Last Infusion: 07/22/24 09:59 Dose: Infused Documented By: SKYE Doxycycline Hyclate 100 mg/ (Sodium Chloride) 250 mls @ 166.67 mls/hr IV Q12H [facility] Last Infusion: 07/22/24 11:36 Dose: Infused Documented By: SKYE Insulin Human Lispro (Insulin Lispro 100 Unit/Ml 3 Ml Vial) 0 unit SUBCUT Q6H [facility]; Protocol Last Admin: 07/22/24 07:00 Dose: 2 unit Documented By: SHRUTHI Lactulose (Lactulose 20 Gm/30 Ml Solution) 30 gm PO TID [facility] Last Admin: 07/22/24 09:19 Dose: Not Given Documented By: INDIO Non-Admin Reason: Physician Held Med Magnesium Hydroxide (Milk Of Magnesia 30 Ml Oral.Susp) 30 ml PO DAILY PRN PRN Reason: Constipation Melatonin (Melatonin 3 Mg Tablet) 6 mg PO BEDTIME PRN PRN Reason: Insomnia Morphine Sulfate (Morphine Sulfate 2 Mg/Ml Cartridge) 2 mg IVPUSH Q4H PRN; Protocol PRN Reason: Pain, Severe (Pain Scale 7-10) Last Admin: 07/22/24 05:36 Dose: 2 mg Documented By: SHRUTHI Ondansetron HCl (Ondansetron Hcl 4 Mg/2 Ml Vial) 4 mg IVPUSH Q8H PRN PRN Reason: Nausea and Vomiting Sodium Chloride (0.9 % Sodium Chloride Flush 3 Ml Syringe) 3 ml IVFLUSH QSHIFT [facility] Last Admin: 07/22/24 07:27 Dose: 3 ml Documented By: ILDA Labs 07/22/24 08:33 07/22/24 08:33 Labs: Laboratory Results - last 24 hr 07/21/24 07/21/24 07/22/24 20:20 20:39 02:19 MCV 102.5 H MCH 33.9 H MCHC 33.1 RDW 16.1 H Plt Count TNP MPV TNP Immature Gran % (Auto) 0.6 H Neut % (Auto) 76.8 H Lymph % (Auto) 7.3 L Brooke % (Auto) 13.1 H Eos % (Auto) 1.9 Baso % (Auto) 0.3 Lymph # (Auto) 0.2 L Brooke # (Auto) 0.4 Eos # (Auto) 0.1 Baso # (Auto) 0.0 Abs Immat Gran (auto) 0.02 Absolute Neuts (auto) 2.4 Absolute Nucleated RBC 0.000 Nucleated RBC % (auto) 0.0 Plt Count ,Citrate Smear Tech's Comments VERIFIED PT 30.6 H INR 2.5 H Anion Gap 12 Estim Creat Clear Calc 49.7 Estimated GFR 57 POC Glucose 198 H Random Glucose 280 H Calcium 9.0 Magnesium 1.4 L* Total Bilirubin 15.6 H Direct Bilirubin 4.2 H AST 29 ALT 26 Alkaline Phosphatase 278 H Ammonia 74 H Troponin I High Sens 19.8 D B-Natriuretic Peptide 1304 H Total Protein 6.3 L Albumin 2.4 L Influenza Type A (PCR) NEGATIVE Influenza Type B (PCR) NEGATIVE RSV RNA Qual (PCR) NEGATIVE SARS-CoV-2 RNA (RT-PCR) NEGATIVE Blood Type Antibody Screen 07/22/24 07/22/24 07/22/24 05:52 08:33 10:11 MCV 100.4 H MCH 33.3 H MCHC 33.2 RDW 16.5 H Plt Count 32 L D MPV Not Reportable Immature Gran % (Auto) 0.8 H Neut % (Auto) 76.0 H Lymph % (Auto) 11.2 L Brooke % (Auto) 9.4 Eos % (Auto) 2.1 Baso % (Auto) 0.5 Lymph # (Auto) 0.4 L Brooke # (Auto) 0.4 Eos # (Auto) 0.1 Baso # (Auto) 0.0 Abs Immat Gran (auto) 0.03 Absolute Neuts (auto) 2.9 Absolute Nucleated RBC 0.000 Nucleated RBC % (auto) 0.0 Plt Count ,Citrate 42 L D Smear Tech's Comments VERIFIED PT INR Anion Gap 9 L Estim Creat Clear Calc 54.0 Estimated GFR > 60 POC Glucose 188 H Random Glucose 201 H Calcium 9.0 Magnesium 1.6 Total Bilirubin 16.7 H Direct Bilirubin AST 28 ALT 26 Alkaline Phosphatase 250 H Ammonia Troponin I High Sens B-Natriuretic Peptide Total Protein 6.2 L Albumin 2.3 L Influenza Type A (PCR) Influenza Type B (PCR) RSV RNA Qual (PCR) SARS-CoV-2 RNA (RT-PCR) Blood Type A Positive Antibody Screen NEGATIVE Assessment and Plan (1) Pleural effusion: Status: Acute Plan d2 74yo M with 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], hepatitis-C liver cirrhosis status post liver transplant in 2010, recurrence of cirrhosis with hepatitis-B status post TIPS (not a candidate for re-transplant), insulin-dependent diabetes mellitus, hypertension, congestive heart failure with preserved ejection fraction, chronic hypoxic failure on 2 L supplemental oxygen presenting with worsening dyspnea despite thoracentesis of L pleural effusion 1 week ago, admitted with hypoxia AHRF due to recurrent L-spided pleural effusion - Pulmonology + Thoracic Surgery consulted, will place chest tube and send small-bore pleural fluid for studies; start ceftriaxone + doxycycline 07/22-; diuresis as above acute/chronic HFpEF ascites and 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 - IV diuresis, monitor lytes + BNP; continue amiloride hypoMg - repleted chronic HBV - continue entecavir [will have to give from home] pancytopenia - due to cirrhosis; monitor counts daily DM2 with hyperglycemia - basal-bolus insulin decompensated cirrhosis - continue rifaximin + lactulose liver transplant - continue tacrolimus VTE ppx - SCDs dispo - TBD In my clinical judgment, the patient requires continued inpatient hospitalization for the following reasons: IV diuresis, pleural fluid management Total time managing care of this patient today: 45 minutes. Quality Stroke Does the patient have a stroke diagnosis?: No VTE Prior VTE?: No VTE Risk Level:: Medical - moderate - high VTE Device Contraindication: N/A - Device Ordered VTE Drug Contraindication: Treatment Not Indicated
[2024-07-22] MEDS: Magnesium Oxide 400 MG TABLET PO (13:00)
[2024-07-22 13:15] LABS: Glucose, Whole Blood 156 mg/dL (60-115)
--- NOTE | 2024-07-22 14:41 | HO.THORCONS ---
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 Patient was seen by outpatient pulmonology and underwent left-sided thoracentesis about a week ago. Patient states that for the last couple of days he has been having worsening shortness of breath which is worse with exertion. Also complains of orthopnea. He was previously using 2 L at night but has been using 2 L supplemental oxygen throughout the day. No fever, chills, productive cough, palpitations, abdominal pain, changes in urinary or bowel habits. Work up in the ED included CBC, BMP which was significant for platelets of 32. CT scan showed large left pleural effusion and small right pleural effusion. Thoracic surgery was consulted. Review of Systems Constitutional: Constitutional: Denies chills and Denies fever(s) ENT: Denies dizziness Cardiovascular: Cardiovascular: Denies chest pain and Reports dyspnea Respiratory: Respiratory: Denies cough and Reports dyspnea Gastrointestinal: Gastrointestinal: Denies diarrhea, Denies nausea and Denies vomiting Integumentary/Breasts: Skin/Breast: Denies rash and Reports jaundice Neurologic: Denies dizziness PMFSH Past Medical History Medical History (Updated 07/22/24 @ 08:46 by Justino Rosen MD) Congestive heart failure Bilateral pleural effusion Round atelectasis Hyperammonemia Chronic liver failure without hepatic coma Hydrothorax Loculated pleural effusion Antiphospholipid antibody syndrome H/O: CVA (cerebrovascular accident) H/O pleural effusion Nephrolithiasis Diabetes HTN (hypertension) Hepatitis C Family History Family History Father Prostate cancer Mother Diabetes HTN (hypertension) Surgical History Surgical History (Updated 07/22/24 @ 16:48 by Cain Milian MD) Liver transplant recipient History of liver transplant H/O hernia repair History of surgery on arm Hx of colonoscopy Social History Social History Household Members: Spouse Housing: House Are you a primary caretaker grounds to a significant other at home: No Do you presently have visiting nurse or other home services: No Alcohol intake: never Patient Tobacco Use Status: Former Tobacco user Advance Directives Date on File: 11/24/06 service: No Current occupational status: employed Meds Allergies Allergy/AdvReac Type Severity Reaction Status Date / Time lisinopril AdvReac Unknown cough Verified 07/21/24 19:17 Active Medications: Current Medications Acetaminophen (Acetaminophen 325 Mg Tablet) 650 mg PO Q6H PRN PRN Reason: Pain, Mild (Pain Scale 1-3), fever or headache Albuterol Sulfate (Albuterol Sulfate 90 Mcg 8 Gm Inhaler) 2 puff INHALE Q6H PRN PRN Reason: shortness of breath or wheezing Albuterol/Ipratropium (Albuterol/Iprat 2.5/0.5mg 3 Ml Ampul.Neb) 3 ml INHALE Q4H PRN PRN Reason: Wheezing Last Admin: 07/22/24 02:25 Dose: 3 ml Brimonidine Tartrate (Brimonidine Tartrate 0.2% Oph 5 Ml Bottle) 1 drop EYE-BOTH BID [facility] Calcium Carbonate (Calcium Carbonate 750 Mg Tab.Chew) 750 mg PO Q4H PRN PRN Reason: Heartburn Fluticasone Propionate (Fluticasone Propionate Nasal 16 Gm Gap) 2 spray NOSTRIL-B DAILY PRN PRN Reason: Allergy Symptoms Fluticasone/Vilanterol (Fluticasone/Vilanterol 100/25 Blst.W.Dev) 1 puff INHALE RDAILY [facility] Last Admin: 07/22/24 14:16 Dose: Not Given Furosemide (Furosemide 40 Mg Tablet) 40 mg PO DAILY [facility]; Protocol Gabapentin (Gabapentin 100 Mg Capsule) 200 mg PO BEDTIME [facility] Glucose (Glucose Gel 15 Gm Gel..Gram.) 15 gm PO Q15M PRN; Protocol PRN Reason: per Hypoglycemia Standing Ord. Dextrose (D10) 250 mls @ 750 mls/hr IV Q15M PRN; Protocol PRN Reason: per Hypoglycemia Standing Ord. Ceftriaxone Sodium 1 gm/ (Sodium Chloride) 50 mls @ 100 mls/hr IV Q24H [facility] Last Infusion: 07/22/24 09:59 Dose: Infused Doxycycline Hyclate 100 mg/ (Sodium Chloride) 250 mls @ 166.67 mls/hr IV Q12H [facility] Last Infusion: 07/22/24 11:36 Dose: Infused Insulin Glargine (Insulin Glargine,Hum.Rec.Anlog 100 Unit/Ml 10 Ml Vial) 24 unit SUBCUT BEDTIME [facility] Insulin Human Lispro (Insulin Lispro 100 Unit/Ml 3 Ml Vial) 0 unit SUBCUT Q6H [facility]; Protocol Last Admin: 07/22/24 13:16 Dose: Not Given Lactulose (Lactulose 20 Gm/30 Ml Solution) 30 gm PO TID [facility] Last Admin: 07/22/24 09:19 Dose: Not Given Lactulose (Lactulose 20 Gm/30 Ml Solution) 20 gm PO TID [facility] Lidocaine HCl (Lidocaine Hcl 1 % 20 Ml Vial) 20 ml INFILTRATI ONCE ONE Stop: 07/22/24 14:41 Magnesium Hydroxide (Milk Of Magnesia 30 Ml Oral.Susp) 30 ml PO DAILY PRN PRN Reason: Constipation Magnesium Oxide (Magnesium Oxide 400 Mg Tablet) 400 mg PO DAILY [facility] Last Admin: 07/22/24 13:00 Dose: 400 mg Melatonin (Melatonin 3 Mg Tablet) 6 mg PO BEDTIME PRN PRN Reason: Insomnia Morphine Sulfate (Morphine Sulfate 2 Mg/Ml Cartridge) 2 mg IVPUSH Q4H PRN; Protocol PRN Reason: Pain, Severe (Pain Scale 7-10) Last Admin: 07/22/24 05:36 Dose: 2 mg Non-Formulary Medication (Amiloride) 20 mg PO DAILY [facility] Non-Formulary Medication (Entecavir [Baraclude]) 0.5 mg PO DAILY [facility] Last Admin: 07/22/24 13:02 Dose: Not Given Omeprazole (Omeprazole 20 Mg Capsule.Dr) 20 mg PO BID@0630,1630 [facility] Ondansetron HCl (Ondansetron Hcl 4 Mg/2 Ml Vial) 4 mg IVPUSH Q8H PRN PRN Reason: Nausea and Vomiting Rifaximin (Rifaximin 550 Mg Tablet) 550 mg PO BID@0630,1630 [facility] Sodium Chloride (0.9 % Sodium Chloride Flush 3 Ml Syringe) 3 ml IVFLUSH QSHIFT [facility] Last Admin: 07/22/24 07:27 Dose: 3 ml Tacrolimus (Tacrolimus 0.5 Mg Capsule) 0.5 mg PO DAILY@1700 [facility] Home Medications ?Medication ?Instructions ?Recorded ?Confirmed ?Last Taken ?Type entecavir 0.5 mg tablet (Baraclude) 0.5 mg PO DAILY 12/22/20 07/22/24 07/21/24 History magnesium oxide 400 mg PO DAILY 12/22/20 07/22/24 07/21/24 History insulin aspart U-100 100 unit/mL See Protocol subcut TID 06/03/23 07/22/24 07/21/24 History (3 mL) subcutaneous pen (Novolog FlexPen U-100 Insulin aspart) lactulose 10 gram/15 mL oral 30 ml PO TID 06/03/23 07/22/24 07/21/24 History solution pantoprazole 40 mg tablet,delayed 40 mg PO BID@0630,1630 06/03/23 07/22/24 07/21/24 History release rifaximin 550 mg tablet (Xifaxan) 550 mg PO BID@0630,1630 06/03/23 07/22/24 07/21/24 History calcium carbonate 600 mg-vitamin 1 cap PO BID 08/26/23 07/22/24 07/21/24 History D3 12.5 mcg (500 unit) capsule (Calcium 600 with Vitamin D3) tacrolimus 1 mg capsule, 0.5 mg PO DAILY@1700 10/16/23 07/22/24 07/21/24 History immediate-release amiloride 5 mg tablet 20 mg PO DAILY 07/22/24 07/22/24 07/21/24 History brimonidine 0.2 % eye drops 1 drp ophthalmic (eye) BID 07/22/24 07/22/24 07/21/24 History fluticasone propionate 50 2 spray intranasal DAILY PRN 07/22/24 07/22/24 07/21/24 History mcg/actuation nasal Allergy Symptoms spray,suspension furosemide 40 mg tablet 40 mg PO DAILY 07/22/24 07/22/24 07/21/24 History insulin glargine 100 unit/mL (3 24 unit subcut BEDTIME 07/22/24 07/22/24 07/21/24 History mL) subcutaneous pen (Lantus Solostar U-100 Insulin) Physical Exam Vital Signs: Vital Signs: Last Vital Signs Temp 98.5 F 07/22/24 13:42 Pulse 86 07/22/24 13:42 Resp 13 07/22/24 13:42 BP 146/65 H 07/22/24 13:42 Pulse Ox 100 07/22/24 10:48 O2 Del Method Nasal Cannula 07/22/24 10:48 O2 Flow Rate 2 07/22/24 10:48 BMI result Body Mass Index 30.0 Const: General: no acute distress and alert Nutritional Appearance: thin Orientation/consciousness: patient oriented x3 Resp: Effort & Inspection: normal respiratory effort, able to speak in complete sentences, no respiratory distress, no tracheal deviation and no use of accessory muscles Skin: General skin exam: jaundice Neuro: General: patient oriented x3 and moves all extremities Results Labs 07/22/24 08:33 07/22/24 08:33 Labs: Abnormal lab results 07/21/24 07/22/24 07/22/24 Range/Units 20:39 02:19 05:52 WBC 3.1 L (4.8-10.8) X10*3/uL RBC 2.42 L (4.60-5.80) X10*6/uL Hgb 8.2 L (14.0-18.0) g/dl Hct 24.8 L (42.0-52.0) % MCV 102.5 H (80.0-98.0) fL MCH 33.9 H (27.0-33.0) pg RDW 16.1 H (11.0-16.0) % Plt Count (160-400) X10*3/uL Immature Gran % (Auto) 0.6 H (0.0-0.4) % Neut % (Auto) 76.8 H (45-73) % Lymph % (Auto) 7.3 L (20-40) % [place] % (Auto) 13.1 H (2-11) % Lymph # (Auto) 0.2 L (1.2-4.9) X10*3/uL Plt Count ,Citrate (150-310) X10*3/uL PT 30.6 H (11.1-13.3) SEC INR 2.5 H (0.9-1.1) Chloride 110 H (96-108) mmol/L Carbon Dioxide 20 L (22-29) mmol/L Anion Gap (12-20) BUN 31 H (9-16) mg/dL POC Glucose 198 H 188 H (60-115) mg/dL Random Glucose 280 H (60-115) mg/dL Magnesium 1.4 L* (1.6-2.6) mg/dL Total Bilirubin 15.6 H (0.0-1.0) mg/dL Direct Bilirubin 4.2 H (0.0-0.5) mg/dL Alkaline Phosphatase 278 H (39-117) U/L Ammonia 74 H (13-55) umol/L B-Natriuretic Peptide 1304 H (<100) pg/mL Total Protein 6.3 L (6.5-8.0) g/dL Albumin 2.4 L (3.5-5.0) g/dL 07/22/24 07/22/24 Range/Units 08:33 13:10 WBC 3.8 L (4.8-10.8) X10*3/uL RBC 2.43 L (4.60-5.80) X10*6/uL Hgb 8.1 L (14.0-18.0) g/dl Hct 24.4 L (42.0-52.0) % MCV 100.4 H (80.0-98.0) fL MCH 33.3 H (27.0-33.0) pg RDW 16.5 H (11.0-16.0) % Plt Count 32 L D (160-400) X10*3/uL Immature Gran % (Auto) 0.8 H (0.0-0.4) % Neut % (Auto) 76.0 H (45-73) % Lymph % (Auto) 11.2 L (20-40) % [place] % (Auto) (2-11) % Lymph # (Auto) 0.4 L (1.2-4.9) X10*3/uL Plt Count ,Citrate 42 L D (150-310) X10*3/uL PT (11.1-13.3) SEC INR (0.9-1.1) Chloride 111 H (96-108) mmol/L Carbon Dioxide (22-29) mmol/L Anion Gap 9 L (12-20) BUN 28 H (9-16) mg/dL POC Glucose 156 H (60-115) mg/dL Random Glucose 201 H (60-115) mg/dL Magnesium (1.6-2.6) mg/dL Total Bilirubin 16.7 H (0.0-1.0) mg/dL Direct Bilirubin (0.0-0.5) mg/dL Alkaline Phosphatase 250 H (39-117) U/L Ammonia (13-55) umol/L B-Natriuretic Peptide (<100) pg/mL Total Protein 6.2 L (6.5-8.0) g/dL Albumin 2.3 L (3.5-5.0) g/dL Short CBC 07/21/24 07/22/24 Range/Units 20:39 08:33 WBC 3.1 L 3.8 L (4.8-10.8) X10*3/uL Hgb 8.2 L 8.1 L (14.0-18.0) g/dl Hct 24.8 L 24.4 L (42.0-52.0) % Plt Count TNP 32 L D BMP 07/21/24 07/22/24 20:39 08:33 Sodium 138 140 Potassium 3.9 3.8 Chloride 110 H 111 H Carbon Dioxide 20 L 24 BUN 31 H 28 H Creatinine 1.24 1.14 Calcium 9.0 9.0 Liver Function 07/21/24 07/22/24 Range/Units 20:39 08:33 Total Bilirubin 15.6 H 16.7 H (0.0-1.0) mg/dL Direct Bilirubin 4.2 H (0.0-0.5) mg/dL AST 29 28 (5-37) U/L ALT 26 26 (0-40) U/L Alkaline Phosphatase 278 H 250 H (39-117) U/L Albumin 2.4 L 2.3 L (3.5-5.0) g/dL All other labs normal. Imaging Chest x-ray: report reviewed and image reviewed CT scan - chest: report reviewed and image reviewed Assessment and Plan (1) Pleural effusion: Status: Acute Plan 74 year old male with multiple medical comorbidities presenting with worsening dyspnea found to have recurrent pleural effusions, L>R. Given the recurrence it was recommended to proceed with left chest tube placement and sclerosis once effusion has improved to prevent further recurrence. This was discussed with patient and in detail with esthetician makeup artist. They agreed with in the plan. He was given platelets prior to procedure. Please see procedure note. Procedures Date of Service Date of Service: 07/22/24 Documented by User: Jose Juan Whitehead MD 07/22/24 18:23 History of Present Illness Consult details Reason for consult: endoscopy (recurrent pleural effusion) [facility] Past Medical History Medical History (Updated 07/22/24 @ 08:46 by Justino Rosen MD) Congestive heart failure Bilateral pleural effusion Round atelectasis Hyperammonemia Chronic liver failure without hepatic coma Hydrothorax Loculated pleural effusion Antiphospholipid antibody syndrome H/O: CVA (cerebrovascular accident) H/O pleural effusion Nephrolithiasis Diabetes HTN (hypertension) Hepatitis C Family History Family History Father Prostate cancer Mother Diabetes HTN (hypertension) Surgical History Surgical History (Updated 07/22/24 @ 16:48 by Cain Milian MD) Liver transplant recipient History of liver transplant H/O hernia repair History of surgery on arm Hx of colonoscopy Social History Social History Household Members: Spouse Housing: House Are you a primary caretaker grounds to a significant other at home: No Do you presently have visiting nurse or other home services: No Alcohol intake: never Patient Tobacco Use Status: Former Tobacco user Advance Directives Date on File: 11/24/06 service: No Current occupational status: employed Meds Allergies Allergy/AdvReac Type Severity Reaction Status Date / Time lisinopril AdvReac Unknown cough Verified 07/21/24 19:17 Home Medications ?Medication ?Instructions ?Recorded ?Confirmed ?Last Taken ?Type entecavir 0.5 mg tablet (Baraclude) 0.5 mg PO DAILY 12/22/20 07/22/24 07/21/24 History magnesium oxide 400 mg PO DAILY 12/22/20 07/22/24 07/21/24 History insulin aspart U-100 100 unit/mL See Protocol subcut TID 06/03/23 07/22/24 07/21/24 History (3 mL) subcutaneous pen (Novolog FlexPen U-100 Insulin aspart) lactulose 10 gram/15 mL oral 30 ml PO TID 06/03/23 07/22/24 07/21/24 History solution pantoprazole 40 mg tablet,delayed 40 mg PO BID@0630,1630 06/03/23 07/22/24 07/21/24 History release rifaximin 550 mg tablet (Xifaxan) 550 mg PO BID@0630,1630 06/03/23 07/22/24 07/21/24 History calcium carbonate 600 mg-vitamin 1 cap PO BID 08/26/23 07/22/24 07/21/24 History D3 12.5 mcg (500 unit) capsule (Calcium 600 with Vitamin D3) tacrolimus 1 mg capsule, 0.5 mg PO DAILY@1700 10/16/23 07/22/24 07/21/24 History immediate-release amiloride 5 mg tablet 20 mg PO DAILY 07/22/24 07/22/24 07/21/24 History brimonidine 0.2 % eye drops 1 drp ophthalmic (eye) BID 07/22/24 07/22/24 07/21/24 History fluticasone propionate 50 2 spray intranasal DAILY PRN 07/22/24 07/22/24 07/21/24 History mcg/actuation nasal Allergy Symptoms spray,suspension furosemide 40 mg tablet 40 mg PO DAILY 07/22/24 07/22/24 07/21/24 History insulin glargine 100 unit/mL (3 24 unit subcut BEDTIME 07/22/24 07/22/24 07/21/24 History mL) subcutaneous pen (Lantus Solostar U-100 Insulin) Results Labs 07/22/24 08:33 07/22/24 08:33 Assessment and Plan (1) Pleural effusion: Status: Acute Plan 74 year old male with multiple medical comorbidities presenting with worsening dyspnea found to have recurrent pleural effusions, L>R. Given the recurrence it was recommended to proceed with left chest tube placement and sclerosis once effusion has improved to prevent further recurrence. This was discussed with patient and in detail with esthetician makeup artist. They agreed with in the plan. He was given platelets prior to procedure. Please see procedure note. As noted Procedures Date of Service Date of Service: 07/22/24
[2024-07-22] MEDS: HYDROmorphone HCl 1 MG/ML SYRINGE IVPUSH (14:57)
--- NOTE | 2024-07-22 15:39 | PM.PROC ---
Brief Operative Note Date of procedure: 07/22/24 Pre-op diagnosis: left pleural effusion Post-op diagnosis: same Procedure: The risks and benefits, alternatives were discussed with the patient and informed consent was obtained. An area of the patient's left lateral chest was prepped with chloraprep and draped in the usual sterile fashion. 20 mL of 1% lidocaine was used for local anesthesia of the skin and subcutaneous tissues. A hypodermic needle was introduced to demonstrate a safe access route. A [facility] catheter was then used to access the pleural cavity. A guidewire was then advanced through the catheter and into the chest cavity. The access site was then dilated. A 14 fr locking catheter was then advanced over the wire and into the chest cavity. The wire was then removed and the catheter was secured to the skin with a single suture and a sterile dressing was applied over the site. The catheter was then connected to a closed chest drainage system with evacuation of 750cc. The patient tolerated the procedure well. No immediate complications. Post procedure film has been ordered. Anesthesia: local Surgeon: Lucy Stiles Estimated blood loss (mL): 5 Condition: stable Disposition: no change
--- NOTE | 2024-07-22 15:57 | MHC.CM.PN ---
CM MET WITH PT AND WITH A XEROX MACHINE ASSEMBLER PT LIVES AT HOME WITH HIS WHO ASSISTS WITH HIS CARE PRN SHE SAYS SHE IS WORKING WITH [facility] TO GET PT MH STANDARD SO HE CAN HAVE HOME SERVICES PT HAS HOME O2 FROM [employer], A WALKER, A COMMODE AND A TUB BENCH FOR DME HE SAYS HE HAS A HCP THAT HE THINKS SHOULD BE ON FILE, CM WILL CHECK, IF NOT, ONE WILL BE COMPLETED WHILE HE IS HERE PCP: JAYNE AVALOS IMM DELIVERED DCP: HOME ? [facility] TO TRANSPORT
--- NOTE | 2024-07-22 16:33 | PC.NURSE ---
Chest tube placed by Dr. Whitehead. No crepitus noted. Immediate drainage of 1350ml of ser-sang drainage. Atrium changed and Pt medicated with Morpine at approx. 4:20pm. Pt awaiting transport to bed assignment of 344.
[2024-07-22] MEDS: Lactulose 20 GM/30 ML SOLUTION PO ×2 (16:47→20:33)
--- NOTE | 2024-07-22 16:49 | PC.NURSE ---
Pt refused Lactulose at this time d/t reports of pain to left chest tube site
[2024-07-22 17:17] LABS: MN% 35.9 %; PMN% 64.1 %; WBC Pleural Fluid 1.372 X10*3/uL
[2024-07-22] MEDS: rifAXIMin 550 MG TABLET PO (17:45)
[2024-07-22] MEDS: Omeprazole 20 MG CAPSULE.DR PO (17:46)
[2024-07-22 17:54] LABS: Glucose, Whole Blood 191 mg/dL (60-115)
[2024-07-22] MEDS: Tacrolimus 0.5 MG CAPSULE PO (18:08)
[2024-07-22] MEDS: HYDROmorphone HCl 0.5 MG/0.5 ML SYRINGE IVPUSH (18:08)
--- NOTE | 2024-07-22 18:17 | PC.NURSE ---
Pt arrive from ED at 1535. Left lateral chest tube in place -20cm suction H20. Pt reporting 10/10 pain to surgical site. Morphine given at 1620 in ED not effective. Order obtained for 0.5 diaudid q4h, given and awiating results. Tolerating pills whole. 2L O2. at bedside. Admission completed.
[2024-07-22 18:33] LABS: BF Shift QC OK YES; Eosinophils Pleural Fluid 1 %; Lymphocytes Pleural Fluid 9 %; Monocytes Pleural Fluid 1 %; Neutrophils Pleural Fluid 73 %; Other Cells Plerual Fl 16 %
[2024-07-22] MEDS: Doxycycline Hyclate 100 MG in 0.9 % Sodium Chloride 250 ML 166 MG IV (20:31)
[2024-07-22] MEDS: Insulin Glargine,Hum.rec.anlog 100 UNIT/ML 10 ML VIAL 24 UNIT SUBCUT (22:04)
[2024-07-23] VITALS (8 sets, daily range): BP systolic 122–144; BP diastolic 59–65; PULSE 87–95; RESP 12–20; TEMP 36.3–37.3; O2SAT 92–100
[2024-07-23 00:07] LABS: Glucose, Whole Blood 206 mg/dL (60-115)
[2024-07-23] MEDS: Insulin Lispro 100 UNIT/ML 3 ML VIAL SUBCUT ×4 (00:24→18:34)
[2024-07-23] MEDS: 0.9 % Sodium Chloride Flush 3 ML SYRINGE IVFLUSH ×3 (00:25→20:17)
[2024-07-23] MEDS: HYDROmorphone HCl 0.5 MG/0.5 ML SYRINGE IVPUSH ×2 (04:07→10:24)
[2024-07-23 06:43] LABS: Glucose, Whole Blood 226 mg/dL (60-115)
[2024-07-23] MEDS: Omeprazole 20 MG CAPSULE.DR PO ×2 (06:46→17:20)
[2024-07-23] MEDS: rifAXIMin 550 MG TABLET PO ×2 (06:55→17:20)
[2024-07-23 07:32] LABS: Hematocrit 27.6 % (42.0-52.0); Mean Corpuscular HGB Conc 32.6 g/dl (31.0-36.0); Mean Corpuscular Hemoglobin 33.5 pg (27.0-33.0); Mean Corpuscular Volume 102.6 fL (80.0-98.0); PLT CLUMP 1; Red Blood Count 2.69 X10*6/uL (4.60-5.80); Red Cell Distribution Width 16.7 % (11.0-16.0)
[2024-07-23 07:42] LABS: B Type Natriuretic Peptide 2342 pg/mL (<100)
[2024-07-23] MEDS: Fluticasone/Vilanterol 100/25 BLST.W.DEV 1 PUFF INHALE (07:49)
[2024-07-23 07:58] LABS: Alanine Aminotransferase 25 U/L (0-40); Albumin Level 2.4 g/dL (3.5-5.0); Alkaline Phosphatase 176 U/L (39-117); Anion Gap 13 (12-20); Aspartate Amino Transferase 26 U/L (5-37); Bilirubin Total 18.8 mg/dL (0.0-1.0); Blood Urea Nitrogen 35 mg/dL (9-16); Calcium 8.9 mg/dL (8.4-10.2); Carbon Dioxide 22 mmol/L (22-29); Chloride 110 mmol/L (96-108); Creatinine Clr Calc Pharmacy 47.4; Estimated Glomerular Filt Rate 54; Glucose Random 255 mg/dL (60-115); Magnesium 1.7 mg/dL (1.6-2.6); Potassium 4.8 mmol/L (3.3-5.1); Sodium 140 mmol/L (135-145); Total Protein 6.1 g/dL (6.5-8.0)
[2024-07-23 08:11] LABS: White Blood Count 12.7 X10*3/uL (4.8-10.8)
--- NOTE | 2024-07-23 08:33 | PM.PNTS ---
Subjective Subjective Date of Service: 07/23/24 <Lucy Stiles PA-C - Last Filed: 07/23/24 12:35> 07/23/24 <Jose Juan Whitehead MD - Last Filed: 07/23/24 13:01> Interval history: No significant drainage since last night per RN. Just received pain meds, very sleepy. Has been c/o pain at chest tube site per daughter at bedside. <Lucy Stiles PA-C - Last Filed: 07/23/24 12:35> Physical Exam Vital Signs: Vital Signs: Last Vital Signs Temp 99.2 F 07/23/24 07:37 Pulse 90 07/23/24 07:51 Resp 15 07/23/24 07:51 BP 135/63 07/23/24 07:37 Pulse Ox 99 07/23/24 07:37 O2 Del Method Nasal Cannula 07/23/24 07:37 O2 Flow Rate 2 07/23/24 07:37 BMI result Body Mass Index 30.0 <Lucy Stiles PA-C - Last Filed: 07/23/24 12:35> Const: General: no acute distress and other (somnolent ) <Lucy Stiles PA-C - Last Filed: 07/23/24 12:35> Chest: Other: left anteriolateral chest tube in place, serosanguineous drainage in pleurvac, no air leak <Lucy Stiles PA-C - Last Filed: 07/23/24 12:35> Resp: Effort & Inspection: normal respiratory effort, no respiratory distress and no use of accessory muscles <Lucy Stiles PA-C - Last Filed: 07/23/24 12:35> Skin: General skin exam: no rashes or lesions noted <Lucy Stiles PA-C - Last Filed: 07/23/24 12:35> Neuro: General: moves all extremities <Lucy Stiles PA-C - Last Filed: 07/23/24 12:35> Procedures Date of Service Date of Service: 07/23/24 <Lucy Stiles PA-C - Last Filed: 07/23/24 12:35> 07/23/24 <Jose Juan Whitehead MD - Last Filed: 07/23/24 13:01> Progress Note: A&P Assessment and plan (1) Recurrent pleural effusion on left: Status: Acute <Lucy Stiles PA-C - Last Filed: 07/23/24 12:35> Assessment and Plan: Underwent left chest tube placement yesterday for recurrent pleural effusion. No significant drainage from chest tube since last night. CXR this morning improved with no apparent residual pleural effusion on left. Will perform sclerosis at bedside today. Repeat CXR tomorrow morning, if stable will remove chest tube. Encouraged incentive spirometer use. 30cc 1% lidocaine followed by 60cc doxycycline given via chest tube at 1030. Tube clamped for 1 hr. Unclamp in 1hr. Patient tolerated well. RN present for procedure and aware. Will reassess following. <Lucy Stiles PA-C - Last Filed: 07/23/24 12:35> Underwent left chest tube placement yesterday for recurrent pleural effusion. No significant drainage from chest tube since last night. CXR this morning improved with no apparent residual pleural effusion on left. Will perform sclerosis at bedside today. Repeat CXR tomorrow morning, if stable will remove chest tube. Encouraged incentive spirometer use. 30cc 1% lidocaine followed by 60cc doxycycline given via chest tube at 1030. Tube clamped for 1 hr. Unclamp in 1hr. Patient tolerated well. RN present for procedure and aware. Will reassess following. As noted. I was present throughout the procedure. <Jose Juan Whitehead MD - Last Filed: 07/23/24 13:01> Time Spent With Patient Time: Total time managing care of this patient today ____ minutes. <Lucy Stiles PA-C - Last Filed: 07/23/24 12:35> Quality Stroke Does the patient have a stroke diagnosis?: No <Lucy Stiles PA-C - Last Filed: 07/23/24 12:35> VTE Prior VTE?: No <Lucy Stiles PA-C - Last Filed: 07/23/24 12:35> VTE Risk Level:: Medical - moderate - high <Lucy Stiles PA-C - Last Filed: 07/23/24 12:35> VTE Device Contraindication: N/A - Device Ordered <Lucy Stiles PA-C - Last Filed: 07/23/24 12:35> VTE Drug Contraindication: Treatment Not Indicated <Lucy Stiles PA-C - Last Filed: 07/23/24 12:35>
--- NOTE | 2024-07-23 09:19 | P.PNPL_ITS ---
Subjective Subjective Date of Service: 07/23/24 Interval history: The patient was seen on exam. Status post pigtail catheter placement. Draining serosanguineous pleural fluid. There 700 mL right now in the Pneumovax. No air leakage. The fluid is neutrophilic predominant suggesting that this is unlikely to be malignant nor related to tuberculosis (usually does a lymphocytic predominant). It appears that the TIPS is working well with good flow. Still waiting for the albumin, total protein and LDH differentiate transudative versus exudative process. Objective Data Labs 07/23/24 05:41 07/23/24 05:41 Labs: Laboratory Results - last 24 hr 07/22/24 07/22/24 07/22/24 08:33 10:11 13:10 WBC RBC Hgb Hct MCV MCH MCHC RDW Plt Count MPV Absolute Nucleated RBC Nucleated RBC % (auto) Sodium Potassium Chloride Carbon Dioxide Anion Gap BUN Creatinine Estim Creat Clear Calc Estimated GFR POC Glucose 156 H Random Glucose Calcium Magnesium Total Bilirubin AST ALT Alkaline Phosphatase B-Natriuretic Peptide Total Protein Albumin Procalcitonin 0.20 Perit Adenosine Deamin Pleural WBC Pleural RBC Pleural Neutrophils Pleural Lymphocytes Pleural Monocytes Pleural Eosinophils Pleural Other Cells Blood Type A Positive Antibody Screen NEGATIVE 07/22/24 07/22/24 07/22/24 16:42 17:46 23:48 WBC RBC Hgb Hct MCV MCH MCHC RDW Plt Count MPV Absolute Nucleated RBC Nucleated RBC % (auto) Sodium Potassium Chloride Carbon Dioxide Anion Gap BUN Creatinine Estim Creat Clear Calc Estimated GFR POC Glucose 191 H 206 H Random Glucose Calcium Magnesium Total Bilirubin AST ALT Alkaline Phosphatase B-Natriuretic Peptide Total Protein Albumin Procalcitonin Perit Adenosine Deamin Cancelled Pleural WBC 1.372 Pleural RBC 0.230 Pleural Neutrophils 73 Pleural Lymphocytes 9 Pleural Monocytes 1 Pleural Eosinophils 1 Pleural Other Cells 16 Blood Type Antibody Screen 07/23/24 07/23/24 05:41 06:38 WBC 12.7 H RBC 2.69 L Hgb 9.0 L Hct 27.6 L MCV 102.6 H MCH 33.5 H MCHC 32.6 RDW 16.7 H Plt Count TNP MPV Not Reportable Absolute Nucleated RBC 0.000 Nucleated RBC % (auto) 0.0 Sodium 140 Potassium 4.8 D Chloride 110 H Carbon Dioxide 22 Anion Gap 13 BUN 35 H Creatinine 1.30 Estim Creat Clear Calc 47.4 Estimated GFR 54 POC Glucose 226 H Random Glucose 255 H Calcium 8.9 Magnesium 1.7 Total Bilirubin 18.8 H AST 26 ALT 25 Alkaline Phosphatase 176 H B-Natriuretic Peptide 2342 H Total Protein 6.1 L Albumin 2.4 L Procalcitonin Perit Adenosine Deamin Pleural WBC Pleural RBC Pleural Neutrophils Pleural Lymphocytes Pleural Monocytes Pleural Eosinophils Pleural Other Cells Blood Type Antibody Screen Microbiology Microbiology Results: Microbiology 07/22/24 16:42 Thoracentesis Fluid Gram Stain - Final Review of Systems Constitutional: Reports fatigue, Reports malaise and Reports weakness Cardiovascular: Reports dyspnea on exertion and Reports orthopnea Respiratory: Reports dyspnea on exertion Gastrointestinal: Reports no additional gastrointestinal complaints Genitourinary: Reports no additional male genitourinary complaints Musculoskeletal: Reports muscle weakness Reports weakness Endocrine: Reports fatigue Physical Exam 2 Vital Signs: Vital Signs: Last Vital Signs Temp 99.2 F 07/23/24 07:37 Pulse 90 07/23/24 07:51 Resp 15 07/23/24 07:51 BP 135/63 07/23/24 07:37 Pulse Ox 99 07/23/24 07:37 O2 Del Method Nasal Cannula 07/23/24 07:37 O2 Flow Rate 2 07/23/24 07:37 BMI result Body Mass Index 30.0 Const: General: comfortable and tired appearing Nutritional Appearance: u nderweight HEENT: Head: Yes normocephalic Eyes: Sclerae: scleral abnormal bilateral (ictures) Neck: Neck: Yes supple Chest: Chest palpation & inspection: normal inspection of the chest Resp: Effort & Inspection: normal respiratory effort Auscultation: d iminished lung sounds and bronchial breath sounds Cardio: Heart sounds: S1 normal heart sound present, S2 normal heart sound present and Murmur heart sound present GI: Palpation (GI): Soft to palpation Skin: General skin exam: jaundice Extrem: General: No clubbing and No cyanosis Procedures Date of Service Date of Service: 07/23/24 Assessment and Plan Assessment and plan (1) Recurrent pleural effusion on left: Status: Acute (2) Liver transplant recipient: Status: Acute (3) Pleural effusion: Status: Acute (4) Round atelectasis: Problem details: RLL, chronic with a chronic loculated effusion. 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 Although, hepatic hydrothorax happens more on the right side he does have significant vacations in loculations on the right side preventing him from accumulating any additional fluid. It will be very hard to successfully pleurodesis based on the fact that the fluid accumulation will need to decrease significantly enough for the to parietal and visceral pleura to oppose each other. PleurX catheter would only have a purpose from a palliative standpoint and is relatively contraindicated for hepatic hydrothorax. I do believe that everything is being driven by the worsening liver failure and therefore his prognosis is very poor since his liver is failing at this time. Recommendations: Continue antibiotics to treat him for the left lower lobe area of consolidation. Awaiting complete pleural fluid analysis Continue diuresis as tolerated Thoracic surgery managing chest tube. PleurX catheter only for palliative types of care such as hospice Goals of care should be discussed with the family patient carries a poor prognosis and the pleural fluid is only a result of his ongoing liver failure Will continue to follow Time Spent With Patient Time: Total time managing care of this patient today ____ minutes. Progress Note: Quality Stroke Does the patient have a stroke diagnosis?: No
[2024-07-23] MEDS: Acetaminophen 325 MG TABLET 650 MG PO (09:23)
[2024-07-23] MEDS: Furosemide 40 MG TABLET PO (09:23)
[2024-07-23] MEDS: Magnesium Oxide 400 MG TABLET PO (09:23)
[2024-07-23] MEDS: Lactulose 20 GM/30 ML SOLUTION PO (09:29)
[2024-07-23] MEDS: Doxycycline Hyclate 100 MG in 0.9 % Sodium Chloride 250 ML 166.67 MG IV ×2 (09:30→20:17)
[2024-07-23] MEDS: Lidocaine HCl 1 % MPF 30 ML VIAL INTRAPLEUR (10:26)
[2024-07-23] MEDS: HYDROmorphone HCl 0.5 MG/0.5 ML SYRINGE 0.25 MG IVPUSH (10:55)
[2024-07-23] MEDS: cefTRIAXone sodium 1 GM in 0.9 % Sodium Chloride 50 ML IV (11:33)
[2024-07-23 11:58] LABS: Glucose, Whole Blood 203 mg/dL (60-115)
--- NOTE | 2024-07-23 12:12 | P.PNIM_ITS ---
Subjective Subjective Date of Service: 07/23/24 Interval History: This history was taken in Frisian from the patient. Chest tube placed yesterday Very tired this AM but dyspnea improved No hematemesis, hematochezia, or melena Review of Systems Review of Systems: Yes all other systems are reviewed and are negative Physical Exam 2 Vital Signs: Vital Signs: Last Vital Signs Temp 99.2 F 07/23/24 07:37 Pulse 90 07/23/24 07:51 Resp 18 07/23/24 10:55 BP 122/59 L 07/23/24 09:23 Pulse Ox 99 07/23/24 07:37 O2 Del Method Nasal Cannula 07/23/24 07:37 O2 Flow Rate 2 07/23/24 07:37 BMI result Body Mass Index 30.0 Gen: in no acute distress HEENT: sclera icteric, moist mucus membranes Neck: supple Lungs: diminished on L, chest tube with serosanguinous fluid Heart: regular rate and rhythm, no murmurs Abd: soft, non-tender, non-distended Ext: 1+ leg edema Skin: warm/well-perfused, jaundiced Neuro: alert and oriented x3, no asterixis, no focal weakness Psych: appropriate affect Objective Data Active Medications Acetaminophen (Acetaminophen 325 Mg Tablet) 650 mg PO Q6H PRN PRN Reason: Pain, Mild (Pain Scale 1-3), fever or headache Last Admin: 07/23/24 09:23 Dose: 650 mg Documented By: URVASHI Albuterol Sulfate (Albuterol Sulfate 90 Mcg 8 Gm Inhaler) 2 puff INHALE Q6H PRN PRN Reason: shortness of breath or wheezing Albuterol/Ipratropium (Albuterol/Iprat 2.5/0.5mg 3 Ml Ampul.Neb) 3 ml INHALE Q4H PRN PRN Reason: Wheezing Last Admin: 07/22/24 02:25 Dose: 3 ml Documented By: SILVIA Brimonidine Tartrate (Brimonidine Tartrate 0.2% Oph 5 Ml Bottle) 1 drop EYE- BOTH BID [facility] Last Admin: 07/23/24 10:38 Dose: Not Given Documented By: URVASHI Non-Admin Reason: Med Not Available Calcium Carbonate (Calcium Carbonate 750 Mg Tab.Chew) 750 mg PO Q4H PRN PRN Reason: Heartburn Fluticasone Propionate (Fluticasone Propionate Nasal 16 Gm [place]) 2 spray NOSTRIL-B DAILY PRN PRN Reason: Allergy Symptoms Fluticasone/Vilanterol (Fluticasone/Vilanterol 100/25 Blst.W.Dev) 1 puff INHALE RDAILY [facility] Last Admin: 07/23/24 07:49 Dose: 1 puff Documented By: BRENDA Furosemide (Furosemide 40 Mg Tablet) 40 mg PO DAILY [facility]; Protocol Last Admin: 07/23/24 09:23 Dose: 40 mg Documented By: URVASHI Gabapentin (Gabapentin 100 Mg Capsule) 200 mg PO BEDTIME [facility] Last Admin: 07/22/24 20:30 Dose: 200 mg Documented By: GREG Glucose (Glucose Gel 15 Gm Gel..Gram.) 15 gm PO Q15M PRN; Protocol PRN Reason: per Hypoglycemia Standing Ord. Hydromorphone HCl (Hydromorphone Hcl 0.5 Mg/0.5 Ml Syringe) 0.5 mg IVPUSH Q4H PRN; Protocol PRN Reason: Pain, Severe (Pain Scale 7-10) Last Admin: 07/23/24 10:24 Dose: 0.5 mg Documented By: URVASHI Dextrose (D10) 250 mls @ 750 mls/hr IV Q15M PRN; Protocol PRN Reason: per Hypoglycemia Standing Ord. Ceftriaxone Sodium 1 gm/ (Sodium Chloride) 50 mls @ 100 mls/hr IV Q24H [facility] Last Admin: 07/23/24 11:33 Dose: 100 mls/hr Documented By: URVASHI Doxycycline Hyclate 100 mg/ (Sodium Chloride) 250 mls @ 166.67 mls/hr IV Q12H [facility] Last Infusion: 07/23/24 11:33 Dose: Infused Documented By: URVASHI Insulin Glargine (Insulin Glargine,Hum.Rec.Anlog 100 Unit/Ml 10 Ml Vial) 24 unit SUBCUT BEDTIME [facility] Last Admin: 07/22/24 22:04 Dose: 24 unit Documented By: MIGUEL Insulin Human Lispro (Insulin Lispro 100 Unit/Ml 3 Ml Vial) 0 unit SUBCUT Q6H [facility]; Protocol Last Admin: 07/23/24 06:46 Dose: 4 unit Documented By: GREG Lactulose (Lactulose 20 Gm/30 Ml Solution) 30 gm PO TID [facility] Last Admin: 07/23/24 09:29 Dose: Not Given Documented By: URVASHI Non-Admin Reason: alreday given Lactulose (Lactulose 20 Gm/30 Ml Solution) 20 gm PO TID [facility] Last Admin: 07/23/24 09:29 Dose: 20 gm Documented By: URVASHI Magnesium Hydroxide (Milk Of Magnesia 30 Ml Oral.Susp) 30 ml PO DAILY PRN PRN Reason: Constipation Magnesium Oxide (Magnesium Oxide 400 Mg Tablet) 400 mg PO DAILY [facility] Last Admin: 07/23/24 09:23 Dose: 400 mg Documented By: URVASHI Melatonin (Melatonin 3 Mg Tablet) 6 mg PO BEDTIME PRN PRN Reason: Insomnia Non-Formulary Medication (Amiloride) 20 mg PO DAILY [facility] Non-Formulary Medication (Entecavir [Baraclude]) 0.5 mg PO DAILY [facility] Last Admin: 07/22/24 13:02 Dose: Not Given Documented By: SKYE Non-Admin Reason: not available Omeprazole (Omeprazole 20 Mg Capsule.) 20 mg PO BID@0630,1630 [facility] Last Admin: 07/23/24 06:46 Dose: 20 mg Documented By: GREG Ondansetron HCl (Ondansetron Hcl 4 Mg/2 Ml Vial) 4 mg IVPUSH Q8H PRN PRN Reason: Nausea and Vomiting Oxycodone HCl (Oxycodone Hcl Immed Release 5 Mg Tablet) 5 mg PO Q4H PRN PRN Reason: Pain, Moderate(Pain Scale 4-6) Rifaximin (Rifaximin 550 Mg Tablet) 550 mg PO BID@0630,1630 [facility] Last Admin: 07/23/24 06:55 Dose: 550 mg Documented By: GREG Sodium Chloride (0.9 % Sodium Chloride Flush 3 Ml Syringe) 3 ml IVFLUSH QSHIFT [facility] Last Admin: 07/23/24 07:56 Dose: 3 ml Documented By: URVASHI Tacrolimus (Tacrolimus 0.5 Mg Capsule) 0.5 mg PO DAILY@1700 [facility] Last Admin: 07/22/24 18:08 Dose: 0.5 mg Documented By: JOSE FRANCISCO Harley 07/23/24 05:41 07/23/24 05:41 Labs: Laboratory Results - last 24 hr 07/22/24 07/22/24 07/22/24 08:33 13:10 16:42 MCV MCH MCHC RDW Plt Count MPV Absolute Nucleated RBC Nucleated RBC % (auto) Anion Gap Estim Creat Clear Calc Estimated GFR POC Glucose 156 H Random Glucose Calcium Magnesium Total Bilirubin AST ALT Alkaline Phosphatase B-Natriuretic Peptide Total Protein Albumin Procalcitonin 0.20 Perit Adenosine Deamin Cancelled Pleural WBC 1.372 Pleural RBC 0.230 Pleural Neutrophils 73 Pleural Lymphocytes 9 Pleural Monocytes 1 Pleural Eosinophils 1 Pleural Other Cells 16 07/22/24 07/22/24 07/23/24 17:46 23:48 05:41 MCV 102.6 H MCH 33.5 H MCHC 32.6 RDW 16.7 H Plt Count TNP MPV Not Reportable Absolute Nucleated RBC 0.000 Nucleated RBC % (auto) 0.0 Anion Gap 13 Estim Creat Clear Calc 47.4 Estimated GFR 54 POC Glucose 191 H 206 H Random Glucose 255 H Calcium 8.9 Magnesium 1.7 Total Bilirubin 18.8 H AST 26 ALT 25 Alkaline Phosphatase 176 H B-Natriuretic Peptide 2342 H Total Protein 6.1 L Albumin 2.4 L Procalcitonin Perit Adenosine Deamin Pleural WBC Pleural RBC Pleural Neutrophils Pleural Lymphocytes Pleural Monocytes Pleural Eosinophils Pleural Other Cells 07/23/24 07/23/24 06:38 11:48 MCV MCH MCHC RDW Plt Count MPV Absolute Nucleated RBC Nucleated RBC % (auto) Anion Gap Estim Creat Clear Calc Estimated GFR POC Glucose 226 H 203 H Random Glucose Calcium Magnesium Total Bilirubin AST ALT Alkaline Phosphatase B-Natriuretic Peptide Total Protein Albumin Procalcitonin Perit Adenosine Deamin Pleural WBC Pleural RBC Pleural Neutrophils Pleural Lymphocytes Pleural Monocytes Pleural Eosinophils Pleural Other Cells Impressions Abdomen Ultrasound 07/22/24 14:10 IMPRESSION: Patent TIPS with flow seen in the hepatic vein side and portal vein side but with very limited imaging. The velocities fall in normal range. Electronically signed by: Rios Camacho MD 07/22/2024 05:29 PM EDT Chest X-Ray 07/22/24 15:40 IMPRESSION: Left pleural drain present. Evacuation of most of the left pleural fluid Electronically signed by: Robbi Khanna MD 07/22/2024 05:49 PM EDT RP Microbiology Microbiology Results: Microbiology 07/22/24 16:42 Gram Stain - Final Thoracentesis Fluid Anaerobic Culture - Preliminary No growth to date. Body Fluid Culture - Preliminary No growth to date. 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 (not a candidate for re-transplant), insulin-dependent diabetes mellitus, hypertension, congestive heart failure with preserved ejection fraction, chronic hypoxic failure on 2 L supplemental oxygen presenting with worsening dyspnea despite thoracentesis of L pleural effusion 1 week ago, admitted with hypoxia AHRF due to recurrent L-spided pleural effusion - Pulmonology + Thoracic Surgery consulted, chest tube placed 07/22 and awaiting chemistries off pleural fluid; cell count shows neutrophil-predominant fluid; follow pleural fluid culture; continue ceftriaxone + doxycycline 07/22-; diuresis as below - Thoracic Surgery performing scerlosis with doxycycline; if CXR stable tomorrow, chest tube to be removed - if pleural effusion recurs, would be a candidate for Pleurex only if going on hospice care per Pulmonology acute/chronic HFpEF ascites and 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 - continue IV furosemide diuresis, monitor lytes + BNP [at risk of hepatorenal syndrome]; continue amiloride [will have to bring from home] hypoMg - repleted chronic HBV of transplanted liver - continue entecavir [will have to bring from home] pancytopenia - due to cirrhosis; monitor counts daily leukocytosis - WBCs actually up today; likely reactive due to chest tube placement DM2 with hyperglycemia - basal-bolus insulin decompensated cirrhosis - continue rifaximin + lactulose liver transplant - continue tacrolimus; level ordered for 18:00 tonight VTE ppx - SCDs dispo - TBD In my clinical judgment, the patient requires continued inpatient hospitalization for the following reasons: IV diuresis, pleural fluid management Total time managing care of this patient today: 45 minutes. Quality Stroke Does the patient have a stroke diagnosis?: No VTE Prior VTE?: No VTE Risk Level:: Medical - moderate - high VTE Device Contraindication: N/A - Device Ordered VTE Drug Contraindication: Treatment Not Indicated
[2024-07-23] MEDS: Lactulose 20 GM/30 ML SOLUTION 40 GM PO (14:58)
[2024-07-23 16:10] LABS: Glucose, Whole Blood 187 mg/dL (60-115)
[2024-07-23] MEDS: Lactulose 20 GM/30 ML SOLUTION 30 GM PO ×2 (17:19→20:05)
[2024-07-23] MEDS: Tacrolimus 0.5 MG CAPSULE PO (17:20)
--- NOTE | 2024-07-23 17:44 | PC.NURSE ---
Pt. transerred to [facility] for close monitoring, chest tube attached to suction upon arrival. No issues during transportation, at bedside.
--- NOTE | 2024-07-23 17:49 | PC.NURSE ---
1290ml output chest tube at 1750 8/30
[2024-07-23 17:58] LABS: Glucose, Whole Blood 177 mg/dL (60-115)
[2024-07-23] MEDS: Gabapentin 100 MG CAPSULE 200 MG PO (20:03)
[2024-07-23] MEDS: Insulin Glargine,Hum.rec.anlog 100 UNIT/ML 10 ML VIAL 24 UNIT SUBCUT (20:04)
[2024-07-24] VITALS (8 sets, daily range): BP systolic 112–131; BP diastolic 55–65; PULSE 95–123; RESP 16–20; TEMP 36.3–37.8; O2SAT 93–97
[2024-07-24] MEDS: HYDROmorphone HCl 0.5 MG/0.5 ML SYRINGE IVPUSH ×2 (03:51→13:10)
[2024-07-24] MEDS: rifAXIMin 550 MG TABLET PO ×2 (06:12→17:01)
[2024-07-24] MEDS: Omeprazole 20 MG CAPSULE.DR PO ×2 (06:12→17:01)
[2024-07-24 06:35] LABS: Hemoglobin 8.8 g/dl (14.0-18.0); Mean Corpuscular Volume 101.9 fL (80.0-98.0)
[2024-07-24 06:37] LABS: Mean Corpuscular HGB Conc 32.6 g/dl (31.0-36.0); Mean Corpuscular Hemoglobin 33.2 pg (27.0-33.0); PLT CLUMP 1; Red Blood Count 2.65 X10*6/uL (4.60-5.80); Red Cell Distribution Width 16.8 % (11.0-16.0)
[2024-07-24 06:57] LABS: B Type Natriuretic Peptide 1856 pg/mL (<100)
[2024-07-24 07:08] LABS: Alanine Aminotransferase 19 U/L (0-40); Alkaline Phosphatase 131 U/L (39-117); Anion Gap 11 (12-20); Aspartate Amino Transferase 22 U/L (5-37); Bilirubin Total 16.9 mg/dL (0.0-1.0); Blood Urea Nitrogen 46 mg/dL (9-16); Calcium 9.2 mg/dL (8.4-10.2); Carbon Dioxide 20 mmol/L (22-29); Chloride 115 mmol/L (96-108); Estimated Glomerular Filt Rate 37; Glucose Random 225 mg/dL (60-115); Potassium 4.4 mmol/L (3.3-5.1); Sodium 142 mmol/L (135-145); Total Protein 5.4 g/dL (6.5-8.0)
[2024-07-24 07:24] LABS: PLT ABN DIST 1; White Blood Count 10.1 X10*3/uL (4.8-10.8)
[2024-07-24 07:52] LABS: Glucose, Whole Blood 185 mg/dL (60-115)
[2024-07-24] MEDS: Insulin Lispro 100 UNIT/ML 3 ML VIAL SUBCUT ×4 (08:07→22:16)
[2024-07-24] MEDS: Lactulose 20 GM/30 ML SOLUTION 30 GM PO ×3 (08:07→17:01)
[2024-07-24] MEDS: Furosemide 40 MG TABLET PO (08:07)
[2024-07-24] MEDS: Magnesium Oxide 400 MG TABLET PO (08:07)
[2024-07-24] MEDS: 0.9 % Sodium Chloride Flush 3 ML SYRINGE IVFLUSH ×3 (08:09→22:18)
[2024-07-24] MEDS: Doxycycline Hyclate 100 MG in 0.9 % Sodium Chloride 250 ML 166.6 MG IV (08:09)
[2024-07-24] MEDS: Fluticasone/Vilanterol 100/25 BLST.W.DEV 1 PUFF INHALE (08:18)
--- NOTE | 2024-07-24 09:21 | P.PNGS_ITS ---
Subjective Subjective Date of Service: 07/24/24 Interval history: No events reported overnight Patient says he is ?comfortable? Chest tube functioning - output at about 160 cc over 24 hours, serosanguineous Physical Exam 2 Vital Signs: Vital Signs: Last Vital Signs Temp 97.4 F 07/24/24 07:53 Pulse 97 07/24/24 08:20 Resp 18 07/24/24 08:20 BP 129/60 07/24/24 08:07 Pulse Ox 96 07/24/24 07:53 O2 Del Method Room Air 07/24/24 07:53 O2 Flow Rate 2 07/23/24 07:37 BMI result Body Mass Index 30.0 Const: General: comfortable and no acute distress Chest: Other: Chest tube in place, serosanguineous output, about 160 cc over 24 hours Resp: Other: Some shortness of breath Cardio: Rate: regular rate GI: Palpation (GI): Soft to palpation Objective Data Active Medications Acetaminophen (Acetaminophen 325 Mg Tablet) 650 mg PO Q6H PRN PRN Reason: Pain, Mild (Pain Scale 1-3), fever or headache Last Admin: 07/23/24 09:23 Dose: 650 mg Documented By: URVASHI Albuterol Sulfate (Albuterol Sulfate 90 Mcg 8 Gm Inhaler) 2 puff INHALE Q6H PRN PRN Reason: shortness of breath or wheezing Albuterol/Ipratropium (Albuterol/Iprat 2.5/0.5mg 3 Ml Ampul.Neb) 3 ml INHALE Q4H PRN PRN Reason: Wheezing Last Admin: 07/22/24 02:25 Dose: 3 ml Documented By: SILVIA Brimonidine Tartrate (Brimonidine Tartrate 0.2% Oph 5 Ml Bottle) 1 drop EYE- BOTH BID [facility] Last Admin: 07/24/24 08:10 Dose: Not Given Documented By: DIXIE Non-Admin Reason: Med Not Available Calcium Carbonate (Calcium Carbonate 750 Mg Tab.Chew) 750 mg PO Q4H PRN PRN Reason: Heartburn Fluticasone Propionate (Fluticasone Propionate Nasal 16 Gm [place]) 2 spray NOSTRIL-B DAILY PRN PRN Reason: Allergy Symptoms Fluticasone/Vilanterol (Fluticasone/Vilanterol 100/25 Blst.W.Dev) 1 puff INHALE RDAILY [facility] Last Admin: 07/24/24 08:18 Dose: 1 puff Documented By: TERI Furosemide (Furosemide 40 Mg Tablet) 40 mg PO DAILY [facility]; Protocol Last Admin: 07/24/24 08:07 Dose: 40 mg Documented By: DIXIE Gabapentin (Gabapentin 100 Mg Capsule) 200 mg PO BEDTIME [facility] Last Admin: 07/23/24 20:03 Dose: 200 mg Documented By: KALLIE Glucose (Glucose Gel 15 Gm Gel..Gram.) 15 gm PO Q15M PRN; Protocol PRN Reason: per Hypoglycemia Standing Ord. Hydromorphone HCl (Hydromorphone Hcl 0.5 Mg/0.5 Ml Syringe) 0.5 mg IVPUSH Q4H PRN; Protocol PRN Reason: Pain, Severe (Pain Scale 7-10) Last Admin: 07/24/24 03:51 Dose: 0.5 mg Documented By: KALLIE Ceftriaxone Sodium 1 gm/ (Sodium Chloride) 50 mls @ 100 mls/hr IV Q24H [facility] Last Infusion: 07/23/24 12:18 Dose: Infused Documented By: URVASHI Doxycycline Hyclate 100 mg/ (Sodium Chloride) 250 mls @ 166.67 mls/hr IV Q12H [facility] Last Admin: 07/24/24 08:09 Dose: 166.6 mls/hr Documented By: DIXIE Dextrose (D10) 250 mls @ 750 mls/hr IV Q15M PRN; Protocol PRN Reason: per Hypoglycemia Standing Ord. Insulin Glargine (Insulin Glargine,Hum.Rec.Anlog 100 Unit/Ml 10 Ml Vial) 24 unit SUBCUT BEDTIME [facility] Last Admin: 07/23/24 20:04 Dose: 24 unit Documented By: KALLIE Insulin Human Lispro (Insulin Lispro 100 Unit/Ml 3 Ml Vial) 0 unit SUBCUT QIDACHS [facility]; Protocol Last Admin: 07/24/24 08:07 Dose: 2 unit Documented By: DIXIE Lactulose (Lactulose 20 Gm/30 Ml Solution) 30 gm PO QID [facility] Last Admin: 07/24/24 08:07 Dose: 30 gm Documented By: DIXIE Magnesium Hydroxide (Milk Of Magnesia 30 Ml Oral.Susp) 30 ml PO DAILY PRN PRN Reason: Constipation Magnesium Oxide (Magnesium Oxide 400 Mg Tablet) 400 mg PO DAILY [facility] Last Admin: 07/24/24 08:07 Dose: 400 mg Documented By: DIXIE Melatonin (Melatonin 3 Mg Tablet) 6 mg PO BEDTIME PRN PRN Reason: Insomnia Non-Formulary Medication (Amiloride) 20 mg PO DAILY [facility] Non-Formulary Medication (Entecavir [Baraclude]) 0.5 mg PO DAILY [facility] Last Admin: 07/22/24 13:02 Dose: Not Given Documented By: SKYE Non-Admin Reason: not available Omeprazole (Omeprazole 20 Mg Capsule.Dr) 20 mg PO BID@0630,1630 [facility] Last Admin: 07/24/24 06:12 Dose: 20 mg Documented By: KALLIE Ondansetron HCl (Ondansetron Hcl 4 Mg/2 Ml Vial) 4 mg IVPUSH Q8H PRN PRN Reason: Nausea and Vomiting Oxycodone HCl (Oxycodone Hcl Immed Release 5 Mg Tablet) 5 mg PO Q4H PRN PRN Reason: Pain, Moderate(Pain Scale 4-6) Rifaximin (Rifaximin 550 Mg Tablet) 550 mg PO BID@0630,1630 [facility] Last Admin: 07/24/24 06:12 Dose: 550 mg Documented By: KALLIE Sodium Chloride (0.9 % Sodium Chloride Flush 3 Ml Syringe) 3 ml IVFLUSH QSHIFT [facility] Last Admin: 07/24/24 08:09 Dose: 3 ml Documented By: DIXIE Tacrolimus (Tacrolimus 0.5 Mg Capsule) 0.5 mg PO DAILY@1700 [facility] Last Admin: 07/23/24 17:20 Dose: 0.5 mg Documented By: SOFFAA Labs 07/24/24 06:02 07/24/24 06:02 Labs: Laboratory Results - last 24 hr 07/23/24 07/23/24 07/23/24 11:48 15:37 17:53 MCV MCH MCHC RDW Plt Count MPV Absolute Nucleated RBC Nucleated RBC % (auto) Anion Gap Estim Creat Clear Calc Estimated GFR POC Glucose 203 H 187 H 177 H Random Glucose Calcium Total Bilirubin AST ALT Alkaline Phosphatase B-Natriuretic Peptide Total Protein Albumin 07/24/24 07/24/24 06:02 07:28 MCV 101.9 H MCH 33.2 H MCHC 32.6 RDW 16.8 H Plt Count TNP MPV TNP Absolute Nucleated RBC 0.000 Nucleated RBC % (auto) 0.0 Anion Gap 11 L Estim Creat Clear Calc 34.0 Estimated GFR 37 POC Glucose 185 H Random Glucose 225 H Calcium 9.2 Total Bilirubin 16.9 H AST 22 ALT 19 Alkaline Phosphatase 131 H B-Natriuretic Peptide 1856 H Total Protein 5.4 L Albumin 2.0 L Microbiology Microbiology Results: Microbiology 07/22/24 16:42 Gram Stain - Final Thoracentesis Fluid Anaerobic Culture - Preliminary No growth to date. Body Fluid Culture - Preliminary No growth to date. Procedures Date of Service Date of Service: 07/24/24 Progress Note: A&P Assessment and plan (1) Recurrent pleural effusion on left: Status: Acute Assessment and Plan: Small pigtail chest tube in place Chest x-ray seen - much improved, cardiophrenic angle easily visible Chest tube therefore removed without difficulty Chest tube tip intact Occlusive dressings placed Continue rest of care as per the hospitalist service Time Spent With Patient Time: Total time managing care of this patient today ____ minutes. Quality Stroke Does the patient have a stroke diagnosis?: No VTE Prior VTE?: No VTE Risk Level:: Medical - moderate - high VTE Device Contraindication: N/A - Device Ordered VTE Drug Contraindication: Treatment Not Indicated
[2024-07-24] MEDS: cefTRIAXone sodium 1 GM in 0.9 % Sodium Chloride 50 ML IV (11:18)
[2024-07-24 12:01] LABS: Glucose, Whole Blood 298 mg/dL (60-115)
--- NOTE | 2024-07-24 12:33 | P.PNIM_ITS ---
Subjective Subjective Date of Service: 07/24/24 Interval History: This history was taken in [place]ian from the patient. Chest tube placed yesterday Very tired this AM but dyspnea improved and more awake No hematemesis, hematochezia, or melena Review of Systems Review of Systems: Yes all other systems are reviewed and are negative Physical Exam 2 Vital Signs: Vital Signs: Last Vital Signs Temp 97.4 F 07/24/24 07:53 Pulse 97 07/24/24 08:20 Resp 18 07/24/24 08:20 BP 129/60 07/24/24 08:07 Pulse Ox 96 07/24/24 07:53 O2 Del Method Room Air 07/24/24 07:53 O2 Flow Rate 2 07/23/24 07:37 BMI result Body Mass Index 30.0 Appearing in no acute distress Jaundice lung sounds are clear to auscultation heart regular rate rhythm, clear S1, S2 positive bowel sounds, abdomen is soft, nontender neuro patient is alert x3, no focal deficits Objective Data Active Medications Acetaminophen (Acetaminophen 325 Mg Tablet) 650 mg PO Q6H PRN PRN Reason: Pain, Mild (Pain Scale 1-3), fever or headache Last Admin: 07/23/24 09:23 Dose: 650 mg Documented By: URVASHI Albuterol Sulfate (Albuterol Sulfate 90 Mcg 8 Gm Inhaler) 2 puff INHALE Q6H PRN PRN Reason: shortness of breath or wheezing Albuterol/Ipratropium (Albuterol/Iprat 2.5/0.5mg 3 Ml Ampul.Neb) 3 ml INHALE Q4H PRN PRN Reason: Wheezing Last Admin: 07/22/24 02:25 Dose: 3 ml Documented By: SILVIA Brimonidine Tartrate (Brimonidine Tartrate 0.2% Oph 5 Ml Bottle) 1 drop EYE- BOTH BID [facility] Last Admin: 07/24/24 08:10 Dose: Not Given Documented By: DIXIE Non-Admin Reason: Med Not Available Calcium Carbonate (Calcium Carbonate 750 Mg Tab.Chew) 750 mg PO Q4H PRN PRN Reason: Heartburn Fluticasone Propionate (Fluticasone Propionate Nasal 16 Gm [place]) 2 spray NOSTRIL-B DAILY PRN PRN Reason: Allergy Symptoms Fluticasone/Vilanterol (Fluticasone/Vilanterol 100/25 Blst.W.Dev) 1 puff INHALE RDAILY [facility] Last Admin: 07/24/24 08:18 Dose: 1 puff Documented By: TERI Furosemide (Furosemide 40 Mg Tablet) 40 mg PO DAILY [facility]; Protocol Last Admin: 07/24/24 08:07 Dose: 40 mg Documented By: DIXIE Gabapentin (Gabapentin 100 Mg Capsule) 200 mg PO BEDTIME [facility] Last Admin: 07/23/24 20:03 Dose: 200 mg Documented By: KALLIE Glucose (Glucose Gel 15 Gm Gel..Gram.) 15 gm PO Q15M PRN; Protocol PRN Reason: per Hypoglycemia Standing Ord. Hydromorphone HCl (Hydromorphone Hcl 0.5 Mg/0.5 Ml Syringe) 0.5 mg IVPUSH Q4H PRN; Protocol PRN Reason: Pain, Severe (Pain Scale 7-10) Last Admin: 07/24/24 03:51 Dose: 0.5 mg Documented By: KALLIE Ceftriaxone Sodium 1 gm/ (Sodium Chloride) 50 mls @ 100 mls/hr IV Q24H [facility] Last Infusion: 07/24/24 11:53 Dose: Infused Documented By: DIXIE Doxycycline Hyclate 100 mg/ (Sodium Chloride) 250 mls @ 166.67 mls/hr IV Q12H [facility] Last Infusion: 07/24/24 09:52 Dose: Infused Documented By: DIXIE Dextrose (D10) 250 mls @ 750 mls/hr IV Q15M PRN; Protocol PRN Reason: per Hypoglycemia Standing Ord. Insulin Glargine (Insulin Glargine,Hum.Rec.Anlog 100 Unit/Ml 10 Ml Vial) 24 unit SUBCUT BEDTIME [facility] Last Admin: 07/23/24 20:04 Dose: 24 unit Documented By: KALLIE Insulin Human Lispro (Insulin Lispro 100 Unit/Ml 3 Ml Vial) 0 unit SUBCUT QIDACHS [facility]; Protocol Last Admin: 07/24/24 12:15 Dose: 6 unit Documented By: DIXIE Lactulose (Lactulose 20 Gm/30 Ml Solution) 30 gm PO QID [facility] Last Admin: 07/24/24 12:15 Dose: 30 gm Documented By: DIXIE Magnesium Hydroxide (Milk Of Magnesia 30 Ml Oral.Susp) 30 ml PO DAILY PRN PRN Reason: Constipation Magnesium Oxide (Magnesium Oxide 400 Mg Tablet) 400 mg PO DAILY [facility] Last Admin: 07/24/24 08:07 Dose: 400 mg Documented By: DIXIE Melatonin (Melatonin 3 Mg Tablet) 6 mg PO BEDTIME PRN PRN Reason: Insomnia Non-Formulary Medication (Amiloride) 20 mg PO DAILY [facility] Non-Formulary Medication (Entecavir [Baraclude]) 0.5 mg PO DAILY [facility] Last Admin: 07/22/24 13:02 Dose: Not Given Documented By: SKYE Non-Admin Reason: not available Omeprazole (Omeprazole 20 Mg Capsule.Dr) 20 mg PO BID@0630,1630 [facility] Last Admin: 07/24/24 06:12 Dose: 20 mg Documented By: KALLIE Ondansetron HCl (Ondansetron Hcl 4 Mg/2 Ml Vial) 4 mg IVPUSH Q8H PRN PRN Reason: Nausea and Vomiting Oxycodone HCl (Oxycodone Hcl Immed Release 5 Mg Tablet) 5 mg PO Q4H PRN PRN Reason: Pain, Moderate(Pain Scale 4-6) Rifaximin (Rifaximin 550 Mg Tablet) 550 mg PO BID@0630,1630 [facility] Last Admin: 07/24/24 06:12 Dose: 550 mg Documented By: KALLIE Sodium Chloride (0.9 % Sodium Chloride Flush 3 Ml Syringe) 3 ml IVFLUSH QSHIFT [facility] Last Admin: 07/24/24 08:09 Dose: 3 ml Documented By: DIXIE Tacrolimus (Tacrolimus 0.5 Mg Capsule) 0.5 mg PO DAILY@1700 [facility] Last Admin: 07/23/24 17:20 Dose: 0.5 mg Documented By: SOFFAA Labs 07/24/24 06:02 07/24/24 06:02 Labs: Laboratory Results - last 24 hr 07/23/24 07/23/24 07/24/24 15:37 17:53 06:02 MCV 101.9 H MCH 33.2 H MCHC 32.6 RDW 16.8 H Plt Count TNP MPV TNP Absolute Nucleated RBC 0.000 Nucleated RBC % (auto) 0.0 Anion Gap 11 L Estim Creat Clear Calc 34.0 Estimated GFR 37 POC Glucose 187 H 177 H Random Glucose 225 H Calcium 9.2 Total Bilirubin 16.9 H AST 22 ALT 19 Alkaline Phosphatase 131 H B-Natriuretic Peptide 1856 H Total Protein 5.4 L Albumin 2.0 L 07/24/24 07/24/24 07:28 11:55 MCV MCH MCHC RDW Plt Count MPV Absolute Nucleated RBC Nucleated RBC % (auto) Anion Gap Estim Creat Clear Calc Estimated GFR POC Glucose 185 H 298 H Random Glucose Calcium Total Bilirubin AST ALT Alkaline Phosphatase B-Natriuretic Peptide Total Protein Albumin Microbiology Microbiology Results: Microbiology 07/22/24 16:42 Gram Stain - Final Thoracentesis Fluid Anaerobic Culture - Preliminary No growth to date. Body Fluid Culture - Preliminary No growth to date. 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 (not a candidate for re-transplant), insulin-dependent diabetes mellitus, hypertension, congestive heart failure with preserved ejection fraction, chronic hypoxic failure on 2 L supplemental oxygen presenting with worsening dyspnea despite thoracentesis of L pleural effusion 1 week ago, admitted with hypoxia AHRF due to recurrent L-spided pleural effusion Pulmonology + Thoracic Surgery following, chest tube placed 07/22 and awaiting chemistries off pleural fluid; cell count shows neutrophil-predominant fluid; follow pleural fluid culture; continue ceftriaxone + doxycycline 07/22-; diuresis as below if CXR stable today, chest tube to be removed if pleural effusion recurs, would be a candidate for Pleurex only if going on hospice care per Pulmonology acute/chronic HFpEF ascites and 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 continue IV furosemide diuresis, monitor lytes + BNP continue amiloride hypoMg 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 Quality Stroke Does the patient have a stroke diagnosis?: No VTE Prior VTE?: No VTE Risk Level:: Medical - moderate - high VTE Device Contraindication: N/A - Device Ordered VTE Drug Contraindication: Treatment Not Indicated
[2024-07-24 14:43] LABS: Anion Gap 11 (12-20); Blood Urea Nitrogen 49 mg/dL (9-16); Calcium 8.6 mg/dL (8.4-10.2); Carbon Dioxide 20 mmol/L (22-29); Chloride 115 mmol/L (96-108); Creatinine Clr Calc Pharmacy 35.8; Estimated Glomerular Filt Rate 39; Glucose Random 276 mg/dL (60-115); Potassium 5.2 mmol/L (3.3-5.1); Sodium 141 mmol/L (135-145)
[2024-07-24 16:54] LABS: Glucose, Whole Blood 201 mg/dL (60-115)
[2024-07-24] MEDS: Tacrolimus 0.5 MG CAPSULE PO (17:01)
[2024-07-24 21:41] LABS: Glucose, Whole Blood 199 mg/dL (60-115)
[2024-07-24] MEDS: Brimonidine Tartrate 0.2% Oph 5 ML BOTTLE 1 DROP EYE-BOTH (22:16)
[2024-07-24] MEDS: Insulin Glargine,Hum.rec.anlog 100 UNIT/ML 10 ML VIAL 24 UNIT SUBCUT (22:16)
[2024-07-24] MEDS: Doxycycline Monohydrate 100 MG CAPSULE PO (22:18)
[2024-07-24] MEDS: Gabapentin 100 MG CAPSULE 200 MG PO (22:18)
[2024-07-24] MEDS: Acetaminophen 325 MG TABLET 650 MG PO (22:22)
[2024-07-25 03:44] LABS: Tacrolimus Prograf 3.3 mcg/L
[2024-07-25 04:00] VITALS: BP 133/60; PULSE 90; RESP 20; TEMP 37.2; O2SAT 94
[2024-07-25] MEDS: Omeprazole 20 MG CAPSULE.DR PO ×2 (06:11→16:33)
[2024-07-25] MEDS: rifAXIMin 550 MG TABLET PO ×2 (06:11→16:33)
[2024-07-25] MEDS: Fluticasone/Vilanterol 100/25 BLST.W.DEV 1 PUFF INHALE (07:24)
[2024-07-25 07:25] VITALS: PULSE 112; RESP 18; O2SAT 97
[2024-07-25 08:00] VITALS: BP 131/58; PULSE 110; RESP 16; TEMP 36.2; O2SAT 91
[2024-07-25 08:02] LABS: Glucose, Whole Blood 178 mg/dL (60-115)
[2024-07-25 08:31] VITALS: BP 131/58
[2024-07-25] MEDS: Furosemide 40 MG TABLET PO (08:31)
[2024-07-25] MEDS: Insulin Lispro 100 UNIT/ML 3 ML VIAL SUBCUT ×4 (08:31→21:37)
[2024-07-25] MEDS: Magnesium Oxide 400 MG TABLET PO (08:31)
[2024-07-25] MEDS: Doxycycline Monohydrate 100 MG CAPSULE PO ×2 (08:31→21:34)
[2024-07-25] MEDS: 0.9 % Sodium Chloride Flush 3 ML SYRINGE IVFLUSH ×3 (08:33→21:39)
[2024-07-25] MEDS: Brimonidine Tartrate 0.2% Oph 5 ML BOTTLE 1 DROP EYE-BOTH ×2 (08:34→21:39)
[2024-07-25] MEDS: cefTRIAXone sodium 1 GM in 0.9 % Sodium Chloride 50 ML IV (08:48)
[2024-07-25 08:53] LABS: Anion Gap 12 (12-20); Blood Urea Nitrogen 52 mg/dL (9-16); Carbon Dioxide 18 mmol/L (22-29); Chloride 112 mmol/L (96-108); Creatinine Clr Calc Pharmacy 35.4; Estimated Glomerular Filt Rate 39; Glucose Random 219 mg/dL (60-115); Potassium 4.1 mmol/L (3.3-5.1); Sodium 138 mmol/L (135-145)
--- NOTE | 2024-07-25 09:49 | PM.EVENT ---
Event Note Date of Service: 07/25/24 Event Note: Chest tube removed yesterday No significant shortness of breath Looks stable Occlusive dressings in place The rest of care as per the primary medical service Time Spent With Patient Time: Total time managing care of this patient today ____ minutes.
--- NOTE | 2024-07-25 10:44 | HO.PM.IMPN ---
Subjective Subjective Date of Service: 07/25/24 Interval History: This history was taken in Mongolian from the patient. Very tired this AM but dyspnea improved and more awake No hematemesis, hematochezia, or melena Chest tube removed Review of Systems Review of Systems: Yes all other systems are reviewed and are negative Physical Exam Vital Signs: Vital Signs: Last Vital Signs Temp 97.1 F 07/25/24 08:00 Pulse 110 H 07/25/24 08:00 Resp 16 07/25/24 08:00 BP 131/58 L 07/25/24 08:31 Pulse Ox 91 L 07/25/24 08:00 O2 Del Method Room Air 07/25/24 08:00 O2 Flow Rate 2 07/23/24 07:37 BMI result Body Mass Index 30.0 Appearing in no acute distress lung sounds are clear to auscultation heart regular rate rhythm, clear S1, S2 positive bowel sounds, abdomen is soft, nontender neuro patient is alert x3, no focal deficits Ct dressing intact to left chest Objective Data Active Medications Acetaminophen (Acetaminophen 325 Mg Tablet) 650 mg PO Q6H PRN PRN Reason: Pain, Mild (Pain Scale 1-3), fever or headache Last Admin: 07/24/24 22:22 Dose: 650 mg Documented By: KALLIE Albuterol Sulfate (Albuterol Sulfate 90 Mcg 8 Gm Inhaler) 2 puff INHALE Q6H PRN PRN Reason: shortness of breath or wheezing Albuterol/Ipratropium (Albuterol/Iprat 2.5/0.5mg 3 Ml Ampul.Neb) 3 ml INHALE Q4H PRN PRN Reason: Wheezing Last Admin: 07/22/24 02:25 Dose: 3 ml Documented By: SILVIA Brimonidine Tartrate (Brimonidine Tartrate 0.2% Oph 5 Ml Bottle) 1 drop EYE-BOTH BID [facility] Last Admin: 07/25/24 08:34 Dose: 1 drop Documented By: DIXIE Calcium Carbonate (Calcium Carbonate 750 Mg Tab.Chew) 750 mg PO Q4H PRN PRN Reason: Heartburn Doxycycline Monohydrate (Doxycycline Monohydrate 100 Mg Capsule) 100 mg PO Q12H [facility] Last Admin: 07/25/24 08:31 Dose: 100 mg Documented By: DIXIE Fluticasone Propionate (Fluticasone Propionate Nasal 16 Gm [place]) 2 spray NOSTRIL-B DAILY PRN PRN Reason: Allergy Symptoms Fluticasone/Vilanterol (Fluticasone/Vilanterol 100/25 Blst.W.Dev) 1 puff INHALE RDAILY [facility] Last Admin: 07/25/24 07:24 Dose: 1 puff Documented By: TERI Furosemide (Furosemide 40 Mg Tablet) 40 mg PO DAILY [facility]; Protocol Last Admin: 07/25/24 08:31 Dose: 40 mg Documented By: DIXIE Gabapentin (Gabapentin 100 Mg Capsule) 200 mg PO BEDTIME [facility] Last Admin: 07/24/24 22:18 Dose: 200 mg Documented By: KALLIE Glucose (Glucose Gel 15 Gm Gel..Gram.) 15 gm PO Q15M PRN; Protocol PRN Reason: per Hypoglycemia Standing Ord. Hydromorphone HCl (Hydromorphone Hcl 0.5 Mg/0.5 Ml Syringe) 0.5 mg IVPUSH Q4H PRN; Protocol PRN Reason: Pain, Severe (Pain Scale 7-10) Last Admin: 07/24/24 13:10 Dose: 0.5 mg Documented By: DIXIE Ceftriaxone Sodium 1 gm/ (Sodium Chloride) 50 mls @ 100 mls/hr IV Q24H [facility] Last Infusion: 07/25/24 09:23 Dose: Infused Documented By: DIXIE Dextrose (D10) 250 mls @ 750 mls/hr IV Q15M PRN; Protocol PRN Reason: per Hypoglycemia Standing Ord. Insulin Glargine (Insulin Glargine,Hum.Rec.Anlog 100 Unit/Ml 10 Ml Vial) 24 unit SUBCUT BEDTIME [facility] Last Admin: 07/24/24 22:16 Dose: 24 unit Documented By: KALLIE Insulin Human Lispro (Insulin Lispro 100 Unit/Ml 3 Ml Vial) 0 unit SUBCUT QIDACHS [facility]; Protocol Last Admin: 07/25/24 08:31 Dose: 2 unit Documented By: DIXIE Lactulose (Lactulose 20 Gm/30 Ml Solution) 30 gm PO TID [facility] Last Admin: 07/25/24 08:47 Dose: Not Given Documented By: DIXIE Non-Admin Reason: Physician Held Med Magnesium Hydroxide (Milk Of Magnesia 30 Ml Oral.Susp) 30 ml PO DAILY PRN PRN Reason: Constipation Magnesium Oxide (Magnesium Oxide 400 Mg Tablet) 400 mg PO DAILY [facility] Last Admin: 07/25/24 08:31 Dose: 400 mg Documented By: DIXIE Melatonin (Melatonin 3 Mg Tablet) 6 mg PO BEDTIME PRN PRN Reason: Insomnia Non-Formulary Medication (Amiloride) 20 mg PO DAILY [facility] Pat Own Med ( Entecavir [Baraclude ] 0.5 Mg Tablet) 0.5 mg PO DAILY [facility] Last Admin: 07/25/24 08:35 Dose: 0.5 mg Documented By: DIXIE Omeprazole (Omeprazole 20 Mg Capsule.) 20 mg PO BID@0630,1630 [facility] Last Admin: 07/25/24 06:11 Dose: 20 mg Documented By: KALLIE Ondansetron HCl (Ondansetron Hcl 4 Mg/2 Ml Vial) 4 mg IVPUSH Q8H PRN PRN Reason: Nausea and Vomiting Oxycodone HCl (Oxycodone Hcl Immed Release 5 Mg Tablet) 5 mg PO Q4H PRN PRN Reason: Pain, Moderate(Pain Scale 4-6) Rifaximin (Rifaximin 550 Mg Tablet) 550 mg PO BID@0630,1630 [facility] Last Admin: 07/25/24 06:11 Dose: 550 mg Documented By: KALLIE Sodium Chloride (0.9 % Sodium Chloride Flush 3 Ml Syringe) 3 ml IVFLUSH QSHIFT [facility] Last Admin: 07/25/24 08:33 Dose: 3 ml Documented By: DIXIE Tacrolimus (Tacrolimus 0.5 Mg Capsule) 0.5 mg PO DAILY@1700 [facility] Last Admin: 07/24/24 17:01 Dose: 0.5 mg Documented By: DIXIE Labs 07/24/24 06:02 07/25/24 08:28 Labs: Laboratory Results - last 24 hr 07/23/24 07/24/24 07/24/24 18:13 11:55 14:25 Anion Gap 11 L Estim Creat Clear Calc 35.8 Estimated GFR 39 POC Glucose 298 H Random Glucose 276 H Calcium 8.6 D Tacrolimus 3.3 L 07/24/24 07/24/24 07/25/24 16:51 21:34 07:59 Anion Gap Estim Creat Clear Calc Estimated GFR POC Glucose 201 H 199 H 178 H Random Glucose Calcium Tacrolimus 07/25/24 08:28 Anion Gap 12 Estim Creat Clear Calc 35.4 Estimated GFR 39 POC Glucose Random Glucose 219 H Calcium 9.0 Tacrolimus Microbiology Microbiology Results: Microbiology 07/22/24 16:42 Gram Stain - Final Thoracentesis Fluid Anaerobic Culture - Preliminary No growth to date. 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 (not a candidate for re-transplant), insulin-dependent diabetes mellitus, hypertension, congestive heart failure with preserved ejection fraction, chronic hypoxic failure on 2 L supplemental oxygen presenting with worsening dyspnea despite thoracentesis of L pleural effusion 1 week ago, admitted with hypoxia AHRF due to recurrent L-spided pleural effusion Pulmonology + Thoracic Surgery following, chest tube placed 07/22 and awaiting chemistries off pleural fluid; cell count shows neutrophil-predominant fluid; follow pleural fluid culture; continue ceftriaxone + doxycycline 07/22-; diuresis as below if CXR stable today, chest tube to be removed if pleural effusion recurs, would be a candidate for Pleurex only if going on hospice care per Pulmonology acute/chronic HFpEF ascites and 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 continue IV furosemide diuresis, monitor lytes + BNP continue amiloride hypoMg 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 Quality Stroke Does the patient have a stroke diagnosis?: No VTE Prior VTE?: No VTE Risk Level:: Medical - moderate - high VTE Device Contraindication: N/A - Device Ordered VTE Drug Contraindication: Treatment Not Indicated
[2024-07-25 11:33] LABS: Glucose, Whole Blood 235 mg/dL (60-115)
[2024-07-25 11:48] LABS: Glucose, Whole Blood 256 mg/dL (60-115)
[2024-07-25 16:00] VITALS: BP 123/58; PULSE 86; RESP 16; TEMP 36.2; O2SAT 96
[2024-07-25 16:00] LABS: Glucose, Whole Blood 171 mg/dL (60-115)
[2024-07-25] MEDS: Lactulose 20 GM/30 ML SOLUTION 30 GM PO (16:32)
[2024-07-25] MEDS: Tacrolimus 0.5 MG CAPSULE PO (16:32)
[2024-07-25 20:00] VITALS: BP 153/67; PULSE 90; RESP 18; TEMP 36.9; O2SAT 95
[2024-07-25 20:38] LABS: Glucose, Whole Blood 205 mg/dL (60-115)
[2024-07-25] MEDS: Gabapentin 100 MG CAPSULE 200 MG PO (21:34)
[2024-07-25] MEDS: Insulin Glargine,Hum.rec.anlog 100 UNIT/ML 10 ML VIAL 24 UNIT SUBCUT (21:37)
[2024-07-26 04:00] VITALS: BP 132/61; PULSE 85; RESP 18; TEMP 36.6; O2SAT 98
[2024-07-26] MEDS: Omeprazole 20 MG CAPSULE.DR PO ×2 (05:45→16:31)
[2024-07-26] MEDS: rifAXIMin 550 MG TABLET PO ×2 (05:45→16:31)
[2024-07-26 06:59] LABS: Ammonia 31 umol/L (13-55)
[2024-07-26 07:06] LABS: Anion Gap 10 (12-20); Blood Urea Nitrogen 56 mg/dL (9-16); Carbon Dioxide 20 mmol/L (22-29); Chloride 110 mmol/L (96-108); Creatinine Clr Calc Pharmacy 41.9; Estimated Glomerular Filt Rate 47; Glucose Random 205 mg/dL (60-115); Sodium 136 mmol/L (135-145)
[2024-07-26 07:33] LABS: Glucose, Whole Blood 179 mg/dL (60-115)
[2024-07-26] MEDS: 0.9 % Sodium Chloride Flush 3 ML SYRINGE IVFLUSH ×3 (07:36→20:29)
[2024-07-26 07:39] LABS: Alanine Aminotransferase 19 U/L (0-40); Albumin Level 1.6 g/dL (3.5-5.0); Alkaline Phosphatase 148 U/L (39-117); Aspartate Amino Transferase 24 U/L (5-37); Bilirubin Direct 4.1 mg/dL (0.0-0.5); Bilirubin Total 13.2 mg/dL (0.0-1.0); Total Protein 4.7 g/dL (6.5-8.0)
[2024-07-26] MEDS: Fluticasone/Vilanterol 100/25 BLST.W.DEV 1 PUFF INHALE (07:42)
[2024-07-26 07:43] VITALS: BP 126/54; PULSE 82; PULSE 85; RESP 18; RESP 20; TEMP 36.1; O2SAT 100; O2SAT 95
[2024-07-26] MEDS: Insulin Lispro 100 UNIT/ML 3 ML VIAL SUBCUT ×4 (07:54→21:07)
[2024-07-26] MEDS: Magnesium Oxide 400 MG TABLET PO (08:18)
[2024-07-26] MEDS: Furosemide 40 MG TABLET PO (08:18)
[2024-07-26] MEDS: Doxycycline Monohydrate 100 MG CAPSULE PO ×2 (08:18→20:27)
[2024-07-26] MEDS: Brimonidine Tartrate 0.2% Oph 5 ML BOTTLE 1 DROP EYE-BOTH ×2 (08:18→21:11)
[2024-07-26] MEDS: cefTRIAXone sodium 1 GM in 0.9 % Sodium Chloride 50 ML IV (09:46)
[2024-07-26] MEDS: Lactulose 20 GM/30 ML SOLUTION 30 GM PO (09:46)
--- NOTE | 2024-07-26 10:11 | P.PNIM_ITS ---
Subjective Subjective Date of Service: 07/26/24 Interval History: Very tired this AM but dyspnea improved and more awake No hematemesis, hematochezia, or melena Review of Systems Review of Systems: Yes all other systems are reviewed and are negative Physical Exam 2 Vital Signs: Vital Signs: Last Vital Signs Temp 97.0 F 07/26/24 07:43 Pulse 82 07/26/24 07:43 Resp 20 07/26/24 07:43 BP 126/54 L 07/26/24 07:43 Pulse Ox 100 07/26/24 07:43 O2 Del Method Nasal Cannula 07/26/24 07:43 O2 Flow Rate 2 07/26/24 07:43 BMI result Body Mass Index 30.0 Appearing in no acute distress Jaundice lung sounds are clear to auscultation heart regular rate rhythm, clear S1, S2 positive bowel sounds, abdomen is soft, nontender neuro patient is alert x3, no focal deficits Objective Data Active Medications Acetaminophen (Acetaminophen 325 Mg Tablet) 650 mg PO Q6H PRN PRN Reason: Pain, Mild (Pain Scale 1-3), fever or headache Last Admin: 07/24/24 22:22 Dose: 650 mg Documented By: KALLIE Albuterol Sulfate (Albuterol Sulfate 90 Mcg 8 Gm Inhaler) 2 puff INHALE Q6H PRN PRN Reason: shortness of breath or wheezing Albuterol/Ipratropium (Albuterol/Iprat 2.5/0.5mg 3 Ml Ampul.Neb) 3 ml INHALE Q4H PRN PRN Reason: Wheezing Last Admin: 07/22/24 02:25 Dose: 3 ml Documented By: SILVIA Brimonidine Tartrate (Brimonidine Tartrate 0.2% Oph 5 Ml Bottle) 1 drop EYE- BOTH BID [facility] Last Admin: 07/26/24 08:18 Dose: 1 drop Documented By: ASHLEY Calcium Carbonate (Calcium Carbonate 750 Mg Tab.Chew) 750 mg PO Q4H PRN PRN Reason: Heartburn Doxycycline Monohydrate (Doxycycline Monohydrate 100 Mg Capsule) 100 mg PO Q12H [facility] Last Admin: 07/26/24 08:18 Dose: 100 mg Documented By: ASHLEY Fluticasone Propionate (Fluticasone Propionate Nasal 16 Gm [place]) 2 spray NOSTRIL-B DAILY PRN PRN Reason: Allergy Symptoms Fluticasone/Vilanterol (Fluticasone/Vilanterol 100/25 Blst.W.Dev) 1 puff INHALE RDAILY [facility] Last Admin: 07/26/24 07:42 Dose: 1 puff Documented By: ROSY Furosemide (Furosemide 40 Mg Tablet) 40 mg PO DAILY [facility]; Protocol Last Admin: 07/26/24 08:18 Dose: 40 mg Documented By: ASHLEY Gabapentin (Gabapentin 100 Mg Capsule) 200 mg PO BEDTIME [facility] Last Admin: 07/25/24 21:34 Dose: 200 mg Documented By: MILAN Glucose (Glucose Gel 15 Gm Gel..Gram.) 15 gm PO Q15M PRN; Protocol PRN Reason: per Hypoglycemia Standing Ord. Hydromorphone HCl (Hydromorphone Hcl 0.5 Mg/0.5 Ml Syringe) 0.5 mg IVPUSH Q4H PRN; Protocol PRN Reason: Pain, Severe (Pain Scale 7-10) Last Admin: 07/24/24 13:10 Dose: 0.5 mg Documented By: DIXIE Ceftriaxone Sodium 1 gm/ (Sodium Chloride) 50 mls @ 100 mls/hr IV Q24H [facility] Last Admin: 07/26/24 09:46 Dose: 100 mls/hr Documented By: ASHLEY Dextrose (D10) 250 mls @ 750 mls/hr IV Q15M PRN; Protocol PRN Reason: per Hypoglycemia Standing Ord. Insulin Glargine (Insulin Glargine,Hum.Rec.Anlog 100 Unit/Ml 10 Ml Vial) 24 unit SUBCUT BEDTIME [facility] Last Admin: 07/25/24 21:37 Dose: 24 unit Documented By: MILAN Insulin Human Lispro (Insulin Lispro 100 Unit/Ml 3 Ml Vial) 0 unit SUBCUT QIDACHS [facility]; Protocol Last Admin: 07/26/24 07:54 Dose: 2 unit Documented By: ASHLEY Lactulose (Lactulose 20 Gm/30 Ml Solution) 30 gm PO TID [facility] Last Admin: 07/26/24 09:46 Dose: 30 gm Documented By: ASHLEY Magnesium Hydroxide (Milk Of Magnesia 30 Ml Oral.Susp) 30 ml PO DAILY PRN PRN Reason: Constipation Magnesium Oxide (Magnesium Oxide 400 Mg Tablet) 400 mg PO DAILY [facility] Last Admin: 07/26/24 08:18 Dose: 400 mg Documented By: ASHLEY Melatonin (Melatonin 3 Mg Tablet) 6 mg PO BEDTIME PRN PRN Reason: Insomnia Non-Formulary Medication (Amiloride) 20 mg PO DAILY [facility] Pat Own Med ( Entecavir [Baraclude ] 0.5 Mg Tablet) 0.5 mg PO DAILY [facility] Last Admin: 07/26/24 08:19 Dose: 0.5 mg Documented By: ASHLEY Omeprazole (Omeprazole 20 Mg Capsule.Dr) 20 mg PO BID@0630,1630 [facility] Last Admin: 07/26/24 05:45 Dose: 20 mg Documented By: MILAN Ondansetron HCl (Ondansetron Hcl 4 Mg/2 Ml Vial) 4 mg IVPUSH Q8H PRN PRN Reason: Nausea and Vomiting Oxycodone HCl (Oxycodone Hcl Immed Release 5 Mg Tablet) 5 mg PO Q4H PRN PRN Reason: Pain, Moderate(Pain Scale 4-6) Rifaximin (Rifaximin 550 Mg Tablet) 550 mg PO BID@0630,1630 [facility] Last Admin: 07/26/24 05:45 Dose: 550 mg Documented By: MILAN Sodium Chloride (0.9 % Sodium Chloride Flush 3 Ml Syringe) 3 ml IVFLUSH QSHIFT [facility] Last Admin: 07/26/24 07:36 Dose: 3 ml Documented By: ASHLEY Tacrolimus (Tacrolimus 0.5 Mg Capsule) 0.5 mg PO DAILY@1700 [facility] Last Admin: 07/25/24 16:32 Dose: 0.5 mg Documented By: DIXIE Labs 07/24/24 06:02 07/26/24 06:46 Labs: Laboratory Results - last 24 hr 07/25/24 07/25/24 07/25/24 10:58 11:02 15:57 Anion Gap Estim Creat Clear Calc Estimated GFR POC Glucose 256 H 235 H 171 H Random Glucose Calcium Total Bilirubin Direct Bilirubin AST ALT Alkaline Phosphatase Ammonia Total Protein Albumin 07/25/24 07/26/24 07/26/24 20:25 06:46 07:25 Anion Gap 10 L Estim Creat Clear Calc 41.9 Estimated GFR 47 POC Glucose 205 H 179 H Random Glucose 205 H Calcium 9.0 Total Bilirubin 13.2 H Direct Bilirubin 4.1 H AST 24 ALT 19 Alkaline Phosphatase 148 H Ammonia 31 Total Protein 4.7 L Albumin 1.6 L Microbiology Microbiology Results: Microbiology 07/22/24 16:42 Gram Stain - Final Thoracentesis Fluid Anaerobic Culture - Preliminary No growth to date. 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 (not a candidate for re-transplant), insulin-dependent diabetes mellitus, hypertension, congestive heart failure with preserved ejection fraction, chronic hypoxic failure on 2 L supplemental oxygen presenting with worsening dyspnea despite thoracentesis of L pleural effusion 1 week ago, admitted with hypoxia AHRF due to recurrent L-spided pleural effusion Pulmonology + Thoracic Surgery following, chest tube placed 07/22 and awaiting chemistries off pleural fluid; cell count shows neutrophil-predominant fluid; follow pleural fluid culture; continue ceftriaxone + doxycycline 07/22-; diuresis as below Chest tube removed 07/23/24 if pleural effusion recurs, would be a candidate for Pleurex only if going on hospice care per Pulmonology acute/chronic HFpEF ascites and hepatic hydrothorax continue IV furosemide diuresis, monitor lytes + BNP continue amiloride hypoMg 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 Bae In my clinical judgment, the patient requires continued inpatient hospitalization for the following reasons: IV diuresis, pleural fluid management Total time managing care of this patient today: 45 minutes. Quality Stroke Does the patient have a stroke diagnosis?: No VTE Prior VTE?: No VTE Risk Level:: Medical - moderate - high VTE Device Contraindication: N/A - Device Ordered VTE Drug Contraindication: Treatment Not Indicated
[2024-07-26 10:54] LABS: Glucose, Whole Blood 246 mg/dL (60-115)
[2024-07-26 15:43] VITALS: BP 135/60; PULSE 97; RESP 16; TEMP 36.1; O2SAT 96
--- NOTE | 2024-07-26 16:11 | MHC.CM.PN ---
Per the request of the hospitalist, this CM met with pt and his family with the assistance of a aboriginal ceremonial celebrant to complete a HCP (now on file), and to discuss placing a referral to hospice for a hospice info session. Pt and his are in agreement with a referral to [facility]. This CM contacted [facility] via careport to request a hospice info session tomorrow 07/27.
[2024-07-26] MEDS: Tacrolimus 0.5 MG CAPSULE PO (16:31)
[2024-07-26 16:33] LABS: Glucose, Whole Blood 289 mg/dL (60-115)
[2024-07-26 19:56] VITALS: BP 138/64; PULSE 87; RESP 18; TEMP 37.3; O2SAT 96
[2024-07-26] MEDS: HYDROmorphone HCl 0.5 MG/0.5 ML SYRINGE IVPUSH (20:27)
[2024-07-26] MEDS: Gabapentin 100 MG CAPSULE 200 MG PO (20:27)
[2024-07-26 20:38] LABS: Glucose, Whole Blood 187 mg/dL (60-115)
[2024-07-26] MEDS: Insulin Glargine,Hum.rec.anlog 100 UNIT/ML 10 ML VIAL 24 UNIT SUBCUT (21:07)
[2024-07-27 00:47] VITALS: BP 134/62; PULSE 83; RESP 18; TEMP 36.8; O2SAT 99
[2024-07-27 04:00] VITALS: BP 138/61; PULSE 78; RESP 18; TEMP 36.4; O2SAT 98
[2024-07-27] MEDS: Omeprazole 20 MG CAPSULE.DR PO (05:29)
[2024-07-27] MEDS: rifAXIMin 550 MG TABLET PO (05:29)
[2024-07-27 07:04] VITALS: BP 114/54; PULSE 81; RESP 18; TEMP 36.8; O2SAT 99
[2024-07-27 07:19] LABS: Glucose, Whole Blood 195 mg/dL (60-115)
[2024-07-27] MEDS: Fluticasone/Vilanterol 100/25 BLST.W.DEV 1 PUFF INHALE (07:43)
[2024-07-27 07:44] VITALS: PULSE 80; RESP 18; O2SAT 92
[2024-07-27 08:44] VITALS: PULSE 80
[2024-07-27] MEDS: Insulin Lispro 100 UNIT/ML 3 ML VIAL SUBCUT ×2 (09:07→13:42)
[2024-07-27] MEDS: Lactulose 20 GM/30 ML SOLUTION 30 GM PO (09:08)
[2024-07-27] MEDS: Furosemide 40 MG TABLET PO (09:08)
[2024-07-27] MEDS: Doxycycline Monohydrate 100 MG CAPSULE PO (09:08)
[2024-07-27] MEDS: Magnesium Oxide 400 MG TABLET PO (09:08)
[2024-07-27] MEDS: cefTRIAXone sodium 1 GM in 0.9 % Sodium Chloride 50 ML IV (09:08)
[2024-07-27] MEDS: 0.9 % Sodium Chloride Flush 3 ML SYRINGE IVFLUSH (09:15)
[2024-07-27] MEDS: Brimonidine Tartrate 0.2% Oph 5 ML BOTTLE 1 DROP EYE-BOTH (09:15)
--- NOTE | 2024-07-27 09:32 | HO.PM.IMPN ---
Subjective Subjective Date of Service: 07/27/24 Interval History: Follow up ESLD No hematemesis, hematochezia, or melena more awake today, oob to chair Review of Systems Review of Systems: Yes all other systems are reviewed and are negative Physical Exam Vital Signs: Vital Signs: Last Vital Signs Temp 98.2 F 07/27/24 07:04 Pulse 80 07/27/24 08:44 Resp 18 07/27/24 07:44 BP 114/54 L 07/27/24 07:04 Pulse Ox 99 07/27/24 07:04 O2 Del Method Nasal Cannula 07/27/24 07:04 O2 Flow Rate 2 07/27/24 07:04 BMI result Body Mass Index 30.0 Appearing in no acute distress Jaundice lung sounds are clear to auscultation heart regular rate rhythm, clear S1, S2 positive bowel sounds, abdomen is soft, nontender neuro patient is alert x3, no focal deficits Objective Data Active Medications Acetaminophen (Acetaminophen 325 Mg Tablet) 650 mg PO Q6H PRN PRN Reason: Pain, Mild (Pain Scale 1-3), fever or headache Last Admin: 07/24/24 22:22 Dose: 650 mg Documented By: KALLIE Albuterol Sulfate (Albuterol Sulfate 90 Mcg 8 Gm Inhaler) 2 puff INHALE Q6H PRN PRN Reason: shortness of breath or wheezing Albuterol/Ipratropium (Albuterol/Iprat 2.5/0.5mg 3 Ml Ampul.Neb) 3 ml INHALE Q4H PRN PRN Reason: Wheezing Last Admin: 07/22/24 02:25 Dose: 3 ml Documented By: SILVIA Brimonidine Tartrate (Brimonidine Tartrate 0.2% Oph 5 Ml Bottle) 1 drop EYE-BOTH BID [facility] Last Admin: 07/27/24 09:15 Dose: 1 drop Documented By: DAYSI Calcium Carbonate (Calcium Carbonate 750 Mg Tab.Chew) 750 mg PO Q4H PRN PRN Reason: Heartburn Doxycycline Monohydrate (Doxycycline Monohydrate 100 Mg Capsule) 100 mg PO Q12H [facility] Last Admin: 07/27/24 09:08 Dose: 100 mg Documented By: DAYSI Fluticasone Propionate (Fluticasone Propionate Nasal 16 Gm [place]) 2 spray NOSTRIL-B DAILY PRN PRN Reason: Allergy Symptoms Fluticasone/Vilanterol (Fluticasone/Vilanterol 100/25 Blst.W.Dev) 1 puff INHALE RDAILY [facility] Last Admin: 07/27/24 07:43 Dose: 1 puff Documented By: WILL Furosemide (Furosemide 40 Mg Tablet) 40 mg PO DAILY [facility]; Protocol Last Admin: 07/27/24 09:08 Dose: 40 mg Documented By: DAYSI Gabapentin (Gabapentin 100 Mg Capsule) 200 mg PO BEDTIME [facility] Last Admin: 07/26/24 20:27 Dose: 200 mg Documented By: MILAN Glucose (Glucose Gel 15 Gm Gel..Gram.) 15 gm PO Q15M PRN; Protocol PRN Reason: per Hypoglycemia Standing Ord. Hydromorphone HCl (Hydromorphone Hcl 0.5 Mg/0.5 Ml Syringe) 0.5 mg IVPUSH Q4H PRN; Protocol PRN Reason: Pain, Severe (Pain Scale 7-10) Last Admin: 07/26/24 20:27 Dose: 0.5 mg Documented By: MILAN Ceftriaxone Sodium 1 gm/ (Sodium Chloride) 50 mls @ 100 mls/hr IV Q24H [facility] Last Admin: 07/27/24 09:08 Dose: 100 mls/hr Documented By: DAYSI Dextrose (D10) 250 mls @ 750 mls/hr IV Q15M PRN; Protocol PRN Reason: per Hypoglycemia Standing Ord. Insulin Glargine (Insulin Glargine,Hum.Rec.Anlog 100 Unit/Ml 10 Ml Vial) 24 unit SUBCUT BEDTIME [facility] Last Admin: 07/26/24 21:07 Dose: 24 unit Documented By: MILAN Insulin Human Lispro (Insulin Lispro 100 Unit/Ml 3 Ml Vial) 0 unit SUBCUT QIDACHS [facility]; Protocol Last Admin: 07/27/24 09:07 Dose: 2 unit Documented By: DAYSI Lactulose (Lactulose 20 Gm/30 Ml Solution) 30 gm PO TID [facility] Last Admin: 07/27/24 09:08 Dose: 30 gm Documented By: DAYSI Magnesium Hydroxide (Milk Of Magnesia 30 Ml Oral.Susp) 30 ml PO DAILY PRN PRN Reason: Constipation Magnesium Oxide (Magnesium Oxide 400 Mg Tablet) 400 mg PO DAILY [facility] Last Admin: 07/27/24 09:08 Dose: 400 mg Documented By: DAYSI Melatonin (Melatonin 3 Mg Tablet) 6 mg PO BEDTIME PRN PRN Reason: Insomnia Non-Formulary Medication (Amiloride) 20 mg PO DAILY [facility] Pat Own Med ( Entecavir [Baraclude ] 0.5 Mg Tablet) 0.5 mg PO DAILY [facility] Last Admin: 07/27/24 09:15 Dose: 0.5 mg Documented By: DAYSI Omeprazole (Omeprazole 20 Mg Capsule.Dr) 20 mg PO BID@0630,1630 [facility] Last Admin: 07/27/24 05:29 Dose: 20 mg Documented By: MILAN Ondansetron HCl (Ondansetron Hcl 4 Mg/2 Ml Vial) 4 mg IVPUSH Q8H PRN PRN Reason: Nausea and Vomiting Oxycodone HCl (Oxycodone Hcl Immed Release 5 Mg Tablet) 5 mg PO Q4H PRN PRN Reason: Pain, Moderate(Pain Scale 4-6) Rifaximin (Rifaximin 550 Mg Tablet) 550 mg PO BID@0630,1630 [facility] Last Admin: 07/27/24 05:29 Dose: 550 mg Documented By: MILAN Sodium Chloride (0.9 % Sodium Chloride Flush 3 Ml Syringe) 3 ml IVFLUSH QSHIFT [facility] Last Admin: 07/27/24 09:15 Dose: 3 ml Documented By: DAYSI Tacrolimus (Tacrolimus 0.5 Mg Capsule) 0.5 mg PO DAILY@1700 [facility] Last Admin: 07/26/24 16:31 Dose: 0.5 mg Documented By: GORDON Labs 07/24/24 06:02 07/26/24 06:46 Labs: Laboratory Results - last 24 hr 07/26/24 07/26/24 07/26/24 10:50 16:29 20:26 POC Glucose 246 H 289 H 187 H 07/27/24 07:15 POC Glucose 195 H Microbiology Microbiology Results: Microbiology 07/22/24 16:42 Gram Stain - Final Thoracentesis Fluid Anaerobic Culture - Final NO GROWTH AFTER 5 DAYS Body Fluid Culture - Final No growth after 2 days 07/22/24 16:42 Fungal Identification - Preliminary Pleural Fluid No growth to date. 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 (not a candidate for re-transplant), insulin-dependent diabetes mellitus, hypertension, congestive heart failure with preserved ejection fraction, chronic hypoxic failure on 2 L supplemental oxygen presenting with worsening dyspnea despite thoracentesis of L pleural effusion 1 week ago, admitted with hypoxia Hospice consult discussion with family regarding patients poor prognosis, family agreeable to Hospice consult AHRF due to recurrent L-spided pleural effusion Pulmonology + Thoracic Surgery following, chest tube placed 07/22 and awaiting chemistries off pleural fluid; cell count shows neutrophil-predominant fluid; follow pleural fluid culture; continue ceftriaxone + doxycycline 07/22-; diuresis as below Chest tube removed 07/23/24 if pleural effusion recurs, would be a candidate for Pleurex only if going on hospice care per Pulmonology acute/chronic HFpEF ascites and hepatic hydrothorax continue IV furosemide diuresis, monitor lytes + BNP continue amiloride hypoMg 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 shin In my clinical judgment, the patient requires continued inpatient hospitalization for the following reasons: IV diuresis, pleural fluid management Total time managing care of this patient today: 45 minutes. Quality Stroke Does the patient have a stroke diagnosis?: No VTE Prior VTE?: No VTE Risk Level:: Medical - moderate - high VTE Device Contraindication: N/A - Device Ordered VTE Drug Contraindication: Treatment Not Indicated
[2024-07-27 11:19] LABS: Glucose, Whole Blood 297 mg/dL (60-115)
[2024-07-27 11:29] LABS: pH Pleural Fluid 7.55
[2024-07-27 11:59] LABS: Albumin Pleural Fluid 0.9; LDH Pleural Fluid 447; Total Protein Pleural Fluid 1.6
[2024-07-27 12:00] LABS: Amylase Pleural Fluid 11; Glucose Pleural Fluid 185
--- NOTE | 2024-07-27 12:50 | MHC.CM.PN ---
Hospice Informational Session was held today at 11:30PM. Patient will dc to home today bat 2PM, via [facility], with [facility]. IMM addressed with Patient and family at bedside and original was given to them and a copy has been placed on the chart.
--- NOTE | 2024-07-27 12:54 | P.DS_ITS ---
DS: Providers Provider Date of Service: 07/27/24 Date of admission: 07/21/24 23:37 Primary care physician: Amauri Eric MD Consults: 07/21/24 23:36 Consult to Pulmonology Routine Consulting Provider: [facility] Reason for consultation: recurrent pleural effusion Consult to Thoracic Surgery Routine Consulting Provider: Jose Juan Whitehead Reason for consultation: recurrent pleural effusion 07/22/24 00:24 Consult to Gastroenterology Routine Consulting Provider: Chantell Cohn Reason for consultation: Hyperbili, liver cirrhosis DS: Diagnosis Discharge Diagnosis (1) Pleural effusion: Status: Acute DS: Summary Hospital Course Hospital Course: History and physical as per admitting provider. 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 Patient was seen by outpatient pulmonology and underwent left-sided thoracentesis about a week ago. Patient states that for the last couple of days he has been having dyspnea which is worse with exertion. Also complains of orthopnea. Was using 2 L at night but recently has been using 2 L supplemental oxygen throughout the day. No fever, chills, productive cough, palpitations, abdominal pain, changes in urinary or bowel habits. Does endorse pleuritic chest discomfort. In the emergency department, imaging with large left pleural effusion and small right pleural effusion. 74-year-old man treated for respiratory failure secondary to left sided pleural effusion. He was seen evaluated by pulmonology and thoracic surgery. He had a chest tube placed on 07/22/2024 and was treated with ceftriaxone and doxycycline. Chest tube was removed on 07/23/2024 with no recurrent pneumothorax. It is believed to be secondary to hepatic pneumothorax due to history of end-stage liver disease. Patient is status post liver transplant patient with a patent tips and chronic cirrhosis with hepatitis-B. For the acute on chronic heart failure with preserved ejection fraction patient was treated with IV Lasix and continued on amiloride. Patient unfortunately has a poor prognosis as he was not a candidate for surgery or reimplantation of liver. Hospice was discussed with the family but they are not ready to stop his ejection medications at this time. He does have a lot of support at home including his and his children and they want to take him home at this time. The family is aware that if they ever are interested in hospice in the future that that would be available for them. Patient this time is stable, he has been able to ambulate and transfer to chair, is urinating. The patient returns with recurrent pleural effusion he would be a good candidate for a PleurX catheter if the decision is made for him to go home on hospice next time. Hypomagnesemia. Repleted Chronic hepatitis-B of transplanted liver. Continue entecavir Pancytopenia secondary to cirrhosis Diabetes mellitus type 2. Continue home medications Decompensated cirrhosis. Continue rifaximin and lactulose History of liver transplant continue tacrolimus Time Attestation Discharge Coordination Time (in mins): 35 Quality: Safe Use of Opioids Does Pt have an Active Cancer Diagnosis on the Problem List?: No Quality: Stroke Does the patient have a stroke diagnosis?: No Physical Exam Vital Signs: Vital Signs: Last Vital Signs Temp 98.2 F 07/27/24 07:04 Pulse 80 07/27/24 08:44 Resp 18 07/27/24 07:44 BP 114/54 L 07/27/24 07:04 Pulse Ox 99 07/27/24 07:04 O2 Del Method Nasal Cannula 07/27/24 07:04 O2 Flow Rate 2 07/27/24 07:04 BMI result Body Mass Index 30.0 Appearing in no acute distress Jaundice head is normocephalic atraumatic eyes pupils are PERRLA sclera is anicteric mouth throat mucous membranes are intact and moist neck is supple no lymphadenopathy, no JVD noted lung sounds are clear to auscultation heart regular rate rhythm, clear S1, S2 positive bowel sounds, abdomen is soft, nontender neuro patient is alert x3, no focal deficits DS: Data Data Completed and Pending Pending studies at discharge: Pending at discharge 07/22/24 13:00 Cytology [PTH] Routine Labs on day of discharge: Laboratory Results - last 24 hr 07/22/24 07/26/24 07/26/24 16:42 16:29 20:26 POC Glucose 289 H 187 H Pleural pH 7.55 Pleural Total Protein 1.6 Pleural Albumin 0.9 Pleural LDH 447 Pleural Glucose 185 Pleural Amylase 11 07/27/24 07/27/24 07:15 11:13 POC Glucose 195 H 297 H Pleural pH Pleural Total Protein Pleural Albumin Pleural LDH Pleural Glucose Pleural Amylase Preliminary micro results at discharge 07/22/24 16:42 Fungal Identification - Preliminary Pleural Fluid No growth to date. Discharge Plan Discharge Anticipated Discharge Date/Time: 07/27/24 12:46 Patient Disposition: Home, Self-Care Discharge Diagnosis: Acute respiratory failure Pleural effusion End-stage liver disease, Liver failure Acute on chronic heart failure with preserved ejection fraction Hypomagnesemia Referrals: Amauri Eric MD [Primary Care Provider] - 1 Week Jose Juan Whitehead MD [Physician] - 1 Week Discharge Medications: New scopolamine base 1 mg over 3 days patch 3 day 1 patch transdermal Q72H 12 Days Qty: 4 0RF Rx Instructions: 1 patch behind ear Q72H for secretions Continued entecavir [Baraclude] 0.5 mg tablet 0.5 mg PO DAILY magnesium oxide 400 mg magnesium Tablet 400 mg PO DAILY calcium carbonate-vitamin D3 [Calcium 600 with Vitamin D3] 600 mg-12.5 mcg (500 unit) capsule 1 cap PO BID pantoprazole 40 mg tablet,delayed release (DR/EC) 40 mg PO BID@0630,1630 insulin aspart U-100 [Novolog FlexPen U-100 Insulin] 100 unit/mL (3 mL) insulin pen See Protocol subcut TID Protocol: Insulin Correction Scale Less than or equal to 110 ---- Give (units): 0 111 to 150 Give (units): 0 151 to 200 Give (units): 2 201 to 250 Give (units): 4 251 to 300 Give (units): 6 301 to 350 Give (units): 8 Greater than 350 Give (units): 10 Call MD if Blood Glucose > : 350 Rx Instructions: 4-12 units per slinging scale lactulose 10 gram/15 mL solution 30 ml PO TID Xifaxan 550 mg tablet 550 mg PO BID@0630,1630 tacrolimus 1 mg capsule 0.5 mg PO DAILY@1700 furosemide 40 mg tablet 40 mg PO DAILY amiloride 5 mg tablet 20 mg PO DAILY brimonidine 0.2 % drops 1 drp ophthalmic (eye) BID Rx Instructions: Both eyes fluticasone propionate 50 mcg/actuation spray,suspension 2 spray intranasal DAILY PRN (Reason: Allergy Symptoms) insulin glargine [Lantus Solostar U-100 Insulin] 100 unit/mL (3 mL) insulin pen 24 unit subcut BEDTIME fluticasone propion-salmeterol [Wixela Inhub] 250-50 mcg/dose blister with device 1 inh inhalation Q12H 30 Days Qty: 60 11RF albuterol sulfate 90 mcg/actuation HFA aerosol inhaler 2 inh inhalation Q6H PRN (Reason: shortness of breath or wheezing) 30 Days Qty: 18 12RF gabapentin 100 mg capsule 200 mg PO BEDTIME 30 Days Qty: 60 3RF Discharge Orders: Discharge Order (Routine); Ordered 07/27/24 Ordered By: Albertina Rosen Diet: Advance to usual diet Activity on Discharge: As tolerated Stand Alone Forms: Patient Portal Discharge page Print Language: Ivorian Care Plan Goals: Continue current medication regimen Health Concerns: Acute respiratory failure Pleural effusion End-stage liver disease Acute on chronic heart failure with preserved ejection fraction Hypomagnesemia Plan of Treatment: Follow-up with primary care provider as needed Take all medications as prescribed Assessment: See discharge summary
--- NOTE | 2024-07-27 13:01 | MHC.CM.PN ---
[facility] transport auth # is [id number].
--- NOTE | 2024-07-27 13:24 | MHC.CM.PN ---
Patient will NOT go home with Hospice; he will go home today with family support via BLS at 2 PM. Patient/family do not want Patient taken off of any of his meds, 2 of which Hospice considers curative.
--- NOTE | 2024-07-27 13:43 | MHC.CM.PN ---
CM met with Patient,, and other family members at bedside, with the assist of a [facility] [employer] Machine Tender to answer final questions. Patient's wanted to be clear that Patient will be returning home WITHOUT Hospice and will continue all his home meds; CM confirmed that this is the plan.CM will follow further as needed.
[2024-08-02 12:23] LABS: Adenosine Deaminase Pleural Fl 12
== END 2024-07-27 15:06 | disposition home or self-care (01) | DRG 441 ==
LOC: HO.ED 20:37 → HO.EDOVER 07-22 02:02 → HO.S3 07-22 15:51 → HO.IMC 07-23 15:46
PROVIDERS: Family Medicine; Internal Medicine Gastroenterology; Physician Assistant; Admitting Provider Student in an Organized Health Care Education/Training Program; Emergency Provider Emergency Medicine; PCP Internal Medicine; Visit Provider Nurse Practitioner Acute Care
DX: T86.42 Liver transplant failure (principal); I50.33 Acute on chronic diastolic (congestive) heart failure; J96.01 Acute respiratory failure with hypoxia; J96.21 Acute and chronic respiratory failure with hypoxia; J98.11 Atelectasis; D68.61 Antiphospholipid syndrome; B18.1 Chronic viral hepatitis B without delta-agent; D61.818 Other pancytopenia; R18.8 Other ascites; J91.8 Pleural effusion in other conditions classified elsewhere; K72.10 Chronic hepatic failure without coma; Y83.0 Surgical operation with transplant of whole organ as the cause of abnormal reaction of the patient, or of later complication, without mention of misadventure at the time of the procedure; E11.65 Type 2 diabetes mellitus with hyperglycemia; K74.60 Unspecified cirrhosis of liver; E83.42 Hypomagnesemia; I11.0 Hypertensive heart disease with heart failure; Z20.822 Contact with and (suspected) exposure to COVID-19; Z79.4 Long term (current) use of insulin; Z79.51 Long term (current) use of inhaled steroids; Z79.621 Long term (current) use of calcineurin inhibitor; Z79.899 Other long term (current) drug therapy
CPT/HCPCS: 0241U; 36415; 71045; 71250; 76705; 80048; 80053; 80076; 80197; 82042; 82140; 82150; 82248; 82945; 82947; 83615; 83735; 83880; 83986; 84145; 84157; 84311; 84484; 85025; 85027; 85610; 86850; 86900; 86901; 87070; 87073; 87102; 87116; 87205; 87206; 88112; 88305; 89051; 93005; 93975; 94640; 97162; 99285; J0696; J1170; J1940; J2270; J3475; P9073

== ENCOUNTER → 2024-07-21 19:29 | Outpatient (BNV) | payer MEDICARE, SELFPAY | PROVIDERS: Emergency Provider Emergency Medicine; PCP Internal Medicine; Visit Provider Student in an Organized Health Care Education/Training Program | DX: J90 Pleural effusion, not elsewhere classified (principal) | CPT/HCPCS: 99223; 99232; 99239; 99499 ==

== ENCOUNTER → 2024-07-21 23:37 | Outpatient (BNV) | payer MEDICARE, SELFPAY | PROVIDERS: Admitting Provider Student in an Organized Health Care Education/Training Program; Emergency Provider Emergency Medicine; PCP Internal Medicine; Visit Provider Hospitalist | DX: J90 Pleural effusion, not elsewhere classified (principal); I50.9 Heart failure, unspecified; J98.11 Atelectasis; K72.10 Chronic hepatic failure without coma; D64.9 Anemia, unspecified | CPT/HCPCS: 99223; 99233 ==

== ENCOUNTER → 2024-07-21 23:37 | Outpatient (BNV) | payer MEDICARE, SELFPAY | PROVIDERS: Admitting Provider Student in an Organized Health Care Education/Training Program; Emergency Provider Emergency Medicine; PCP Internal Medicine; Visit Provider Physician Assistant Surgical | DX: J90 Pleural effusion, not elsewhere classified (principal) | CPT/HCPCS: 32556; 99223; 99232; 99499 ==

== ENCOUNTER → 2024-07-21 23:37 | Outpatient (BNV) | payer MEDICARE, SELFPAY | PROVIDERS: Admitting Provider Student in an Organized Health Care Education/Training Program; Emergency Provider Emergency Medicine; PCP Internal Medicine; Visit Provider Internal Medicine Gastroenterology | DX: D64.9 Anemia, unspecified (principal); K72.10 Chronic hepatic failure without coma; Z94.4 Liver transplant status | CPT/HCPCS: 99499 ==

== ENCOUNTER 2024-08-07 23:40 | Inpatient (IN) | payer MEDICARE, SELFPAY ==
--- NOTE | ~2024-08-07 | XR_ITS ---
EXAMINATION: XR CHEST CLINICAL INFORMATION: Pleural effusion COMPARISON: 07/26/2024 TECHNIQUE: Frontal view of the chest was obtained. FINDINGS: Lung volumes appear symmetric. Persistent small right pleural effusion with adjacent parenchymal atelectasis versus consolidation. Trace left pleural effusion is also suspected with mild basilar atelectasis. Overall appearance is similar to prior. No appreciable pneumothorax. Central vascular congestion redemonstrated. The cardiomediastinal silhouette is stable. No acute osseous findings are seen. XR/XR chest 1V IMPRESSION: Persistent small right and trace left pleural effusions with adjacent parenchymal atelectasis versus consolidation, overall similar to prior. Central vascular congestion. Electronically signed by: Rick Paul MD 08/08/2024 03:52 AM EDT
[2024-08-07 23:51] VITALS: BP 178/54; PULSE 86; O2SAT 97
[2024-08-07 23:55] VITALS: BP 149/60; PULSE 82; RESP 20; TEMP 37.2; O2SAT 100
[2024-08-08] VITALS (14 sets, daily range): BP systolic 117–145; BP diastolic 43–74; PULSE 69–97; RESP 12–18; TEMP 36–36.9; O2SAT 100; BMI 30.3
--- NOTE | 2024-08-08 00:08 | ED_ITS ---
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 (not a candidate for re-transplant), insulin-dependent diabetes mellitus, hypertension, congestive heart failure with preserved ejection fraction, chronic hypoxic failure on 2 L supplemental oxygen with bilateral pleural effusions was admitted on 07/21 discharged on 07/27 had left thoracentesis on 07/13 discharge home on hospice care comes here as has generalized swelling for last few days which is ongoing problem from hepatic failure patient has been taking diuretics alert falling sleep frequently no change in mental status Related Data Home Medications ?Medication ?Instructions ?Recorded ?Confirmed entecavir 0.5 mg tablet (Baraclude) 0.5 mg PO DAILY 12/22/20 07/22/24 magnesium oxide 400 mg PO DAILY 12/22/20 07/22/24 insulin aspart U-100 100 unit/mL See Protocol subcut TID 06/03/23 07/22/24 (3 mL) subcutaneous pen (Novolog FlexPen U-100 Insulin aspart) lactulose 10 gram/15 mL oral 30 ml PO TID 06/03/23 07/22/24 solution pantoprazole 40 mg tablet,delayed 40 mg PO BID@0630,1630 06/03/23 07/22/24 release rifaximin 550 mg tablet (Xifaxan) 550 mg PO BID@0630,1630 06/03/23 07/22/24 calcium carbonate 600 mg-vitamin 1 cap PO BID 08/26/23 07/22/24 D3 12.5 mcg (500 unit) capsule (Calcium 600 with Vitamin D3) tacrolimus 1 mg capsule, 0.5 mg PO DAILY@1700 10/16/23 07/22/24 immediate-release amiloride 5 mg tablet 20 mg PO DAILY 07/22/24 07/22/24 brimonidine 0.2 % eye drops 1 drp ophthalmic (eye) BID 07/22/24 07/22/24 fluticasone propionate 50 2 spray intranasal DAILY PRN 07/22/24 07/22/24 mcg/actuation nasal Allergy Symptoms spray,suspension furosemide 40 mg tablet 40 mg PO DAILY 07/22/24 07/22/24 insulin glargine 100 unit/mL (3 24 unit subcut BEDTIME 07/22/24 07/22/24 mL) subcutaneous pen (Lantus Solostar U-100 Insulin) Previous Rx's ?Medication ?Instructions ?Recorded gabapentin 100 mg capsule 200 mg (2 x 100 mg) PO BEDTIME 30 04/26/24 days #60 caps albuterol sulfate 90 mcg/actuation 2 inh inhalation Q6H PRN shortness 07/02/24 aerosol inhaler of breath or wheezing 30 days #18 grams fluticasone 250 mcg-salmeterol 50 1 inh inhalation Q12H 30 days #60 07/02/24 mcg/dose blistr powdr for ea inhalation (Wixela Inhub) scopolamine base 1 mg over 3 days 1 patch transdermal Q72H 12 days 07/27/24 transdermal patch #4 ea Allergies Allergy/AdvReac Type Severity Reaction Status Date / Time lisinopril AdvReac Unknown cough Verified 08/07/24 23:58 Review of Systems 2 Review of Systems: Yes all other systems are reviewed and are negative PMFSH Past Medical History Medical History Anemia Congestive heart failure Bilateral pleural effusion Round atelectasis Hyperammonemia Chronic liver failure without hepatic coma Hydrothorax Loculated pleural effusion Antiphospholipid antibody syndrome H/O: CVA (cerebrovascular accident) H/O pleural effusion Nephrolithiasis Diabetes HTN (hypertension) Hepatitis C Surgical History Liver transplant recipient History of liver transplant H/O hernia repair History of surgery on arm Hx of colonoscopy Family History Family History Father Prostate cancer Mother Diabetes HTN (hypertension) Social History Social History Household Members: Spouse Housing: House Are you a primary long term care social worker to a significant other at home: No Do you presently have visiting nurse or other home services: No Alcohol intake: never Comment: at bedside Patient Tobacco Use Status: Former Tobacco user Smoked in Last 30 Days: No Substance Use Type: Prescription Drugs Advance Directives: Yes Advance Directives on File: Yes Advance Directives Date on File: 11/24/06 service: No Current occupational status: employed Physical Exam ED Vital Signs: Vital Signs - 24 hr 08/07/24 23:55 08/08/24 01:03 Temperature 99 F Pulse Rate 82 Respiratory Rate 20 Blood Pressure 149/60 H 137/55 L Pulse Oximetry 100 Oxygen Delivery Method Nasal Cannula BMI result Body Mass Index 0.3 Appearance: Alert. Oriented X3. No acute distress. Falling sleep off and on generalized anasarca Eyes: PERRLA, No Nystagmus deep icterus ENT: Pharynx normal. Oral Mucosa moist Neck: Normal inspection. Neck supple. CVS: Normal heart rate and rhythm. Pulses normal. Respiratory: No respiratory distress. Equal air entry bilateral, decreased air entry bilateral bases Abdomen: Soft and nontender. Bowel sounds are present, no mass palpable, no CVA tenderness Skin: Skin warm and dry. Normal skin color. Normal skin turgor. swelling of the scrotum and penis Extremities:3+ lower extremity edema. No calf tenderness Neuro: Oriented X 3. No motor deficit. No sensory deficit. Fine tremors+ Medications Administered Generic Name Dose Route Start Last Admin Trade Name Freq PRN Reason Stop Dose Admin Furosemide 200 mg/ Sodium 100 mls @ 1 mls/hr 08/08/24 06:00 08/08/24 06:33 Chloride IVCONT 2 mg/hr .Q24H CONSTANTINO 1 mls/hr Administration 2 MG/HR Pantoprazole Sodium 40 mg 08/08/24 06:30 08/08/24 06:33 Pantoprazole Sodium 40 Mg/10 Ml Vial IVPUSH 40 mg BID@0630,1630 CONSTANTINO Administration Discontinued Medications Generic Name Dose Route Start Last Admin Trade Name Freq PRN Reason Stop Dose Admin Acetaminophen 650 mg 08/08/24 05:31 08/08/24 06:09 Acetaminophen 325 Mg Tablet PO 08/08/24 05:32 Not Given ONCE STA Furosemide 40 mg 08/08/24 00:45 08/08/24 01:03 Furosemide 40 Mg/4 Ml Vial IVPUSH 08/08/24 00:46 40 mg ONCE ONE Administration Protocol Albumin Human 100 mls @ 100 mls/hr 08/08/24 00:45 08/08/24 03:57 Kedbumin 25 % IV 08/08/24 02:44 Infused Q1H CONSTANTINO Infusion Albumin Human 100 mls @ 100 mls/hr 08/08/24 03:00 08/08/24 06:34 Kedbumin 25 % IV 08/08/24 04:59 Infused Q1H CONSTANTINO Infusion Lidocaine HCl 10 ml 08/08/24 02:53 08/08/24 02:57 Lidocaine Hcl 2 % Urojet 10 Ml Jel.Pf.Sari TOPICAL 08/08/24 02:54 10 ml ONCE ONE Administration Morphine Sulfate 2 mg 08/08/24 02:54 08/08/24 03:19 Morphine Sulfate 2 Mg/Ml Cartridge IVPUSH 08/08/24 02:55 2 mg ONCE ONE Administration Protocol Medical Decision Making Medical Decision Making [facility] Narrative: Patient with end-stage liver failure on hospice care came with fluid overload anasarca will admit for diuresis was given albumin in the ER family and patient wants to be treated, although is hospice care Differential Diagnosis Differential Diagnoses: The differential diagnosis associated with the presentation includes Admission/Observation Consideration of admission/observation: Escalation of care including admission/observation considered Consult Healthcare Provider Management of the patient was discussed with: Hospitalist Lab Data [facility] Lab Attestation statement: I reviewed the patient's lab results. 08/08/24 00:39 08/08/24 00:39 Labs: Lab Results 08/08/24 08/08/24 Range/Units 00:39 00:40 WBC 6.4 (4.8-10.8) X10*3/uL RBC 2.20 L (4.60-5.80) X10*6/uL Hgb 7.4 L (14.0-18.0) g/dl Hct 22.5 L (42.0-52.0) % MCV 102.3 H (80.0-98.0) fL MCH 33.6 H (27.0-33.0) pg MCHC 32.9 (31.0-36.0) g/dl RDW 16.8 H (11.0-16.0) % Plt Count TNP MPV Not Reportable Immature Gran % (Auto) 0.8 H (0.0-0.4) % Neut % (Auto) 79.5 H (45-73) % Lymph % (Auto) 7.2 L (20-40) % [place] % (Auto) 10.4 (2-11) % Eos % (Auto) 1.6 (0-4) % Baso % (Auto) 0.5 (0-2) % Lymph # (Auto) 0.5 L (1.2-4.9) X10*3/uL [place] # (Auto) 0.7 (0.1-1.2) X10*3/uL Eos # (Auto) 0.1 (0.0-0.4) X10*3/uL Baso # (Auto) 0.0 (0.0-0.2) X10*3/uL Abs Immat Gran (auto) 0.05 H (0.00-0.03) X10*3/uL Absolute Neuts (auto) 5.1 (2.0-8.3) x10*3/uL Absolute Nucleated RBC 0.000 (0.0-0.012) X10*3/uL Nucleated RBC % (auto) 0.0 (0.0-0.2) /100WBC Smear Tech's Comments VERIFIED Hold Purple Top SEE NOTE PT 30.2 H (11.1-13.3) SEC INR 2.5 H (0.9-1.1) APTT 65.3 H* D (26.0-36.8) SEC Sodium 137 (135-145) mmol/L Potassium 4.6 (3.3-5.1) mmol/L Chloride 110 H (96-108) mmol/L Carbon Dioxide 20 L (22-29) mmol/L Anion Gap 12 (12-20) BUN 63 H (9-16) mg/dL Creatinine 1.73 H (0.5-1.4) mg/dL Estim Creat Clear Calc 40.6 Estimated GFR 39 Random Glucose 197 H (60-115) mg/dL Calcium 8.5 (8.4-10.2) mg/dL Magnesium 1.9 (1.6-2.6) mg/dL Total Bilirubin 12.9 H (0.0-1.0) mg/dL AST 41 H (5-37) U/L ALT 31 (0-40) U/L Alkaline Phosphatase 291 H (39-117) U/L Ammonia 69 H (13-55) umol/L Total Protein 5.7 L (6.5-8.0) g/dL Albumin 2.0 L (3.5-5.0) g/dL Independent Interpretation I performed an independent interpretation of an: Plain X-Ray Radiology Impression Discussion of test interpretation with radiology: I have reviewed the radiologist's reading. Radiologist Impression: XR/XR chest 1V IMPRESSION: Persistent small right and trace left pleural effusions with adjacent parenchymal atelectasis versus consolidation, overall similar to prior. Central vascular congestion. Independent Historian Clinical information obtained from an independent historian. History obtained from or confirmed by: Spouse External Record Review External record reviewed: Inpatient record Discharge Plan Discharge Clinical Impression: Metabolic alkalosis, Anasarca, Chronic renal failure Liver failure Qualifiers: Liver failure chronicity: chronic Hepatic coma status: without hepatic coma Q ualified Code(s): K72.10 - Chronic hepatic failure without coma Patient Disposition: Admitted As Inpatient
--- NOTE | 2024-08-08 00:17 | PC.NURSE ---
Addendum entered by Jcaqueline Reid 08/08/24 03:45: 0030 - pt and in agreement for admission to hospital. ej established by MD to L. side of neck. labs sent. Original Note: MD at bedside with Video interpreter and translator. edema noted of BUE and BLE +3 pitting, no weeping noted. pt reports penis is swollen as well exam done by MD Oliveros. pt and confirmed pt is on hospice at home. MD educate pt on the plan with hospice and current situation of liver failure resulting in swelling; discussing expectations of care at this time.
[2024-08-08 00:50] LABS: Basophils Percent Auto 0.5 % (0-2); Eosinophils Absolute Auto 0.1 X10*3/uL (0.0-0.4); Eosinophils Percent Auto 1.6 % (0-4); Hematocrit 22.5 % (42.0-52.0); Hemoglobin 7.4 g/dl (14.0-18.0); Imm Gran Abs Auto 0.05 X10*3/uL (0.00-0.03); Imm Gran Pct Auto 0.8 % (0.0-0.4); Lymphocytes Absolute Auto 0.5 X10*3/uL (1.2-4.9); Lymphocytes Percent Auto 7.2 % (20-40); MANUAL DIFF FLAG SCAN; Mean Corpuscular HGB Conc 32.9 g/dl (31.0-36.0); Mean Corpuscular Hemoglobin 33.6 pg (27.0-33.0); Mean Corpuscular Volume 102.3 fL (80.0-98.0); Monocytes Absolute Auto 0.7 X10*3/uL (0.1-1.2); Monocytes Percent Auto 10.4 % (2-11); Neutrophils Absolute Auto 5.1 x10*3/uL (2.0-8.3); Neutrophils Percent Auto 79.5 % (45-73); PLT CLUMP 1; Red Cell Distribution Width 16.8 % (11.0-16.0); SCAN SMEAR FLAG 1
[2024-08-08 00:56] LABS: Ammonia 69 umol/L (13-55); INTERNATIONAL NORM RATIO 2.5 (0.9-1.1); Prothrombin Time 30.2 SEC (11.1-13.3); White Blood Count 6.4 X10*3/uL (4.8-10.8)
[2024-08-08] MEDS: Furosemide 40 MG/4 ML VIAL IVPUSH (01:03)
[2024-08-08] MEDS: Albumin Human 25 % 100 ML IV ×6 (01:04→22:03)
[2024-08-08 01:06] LABS: Alanine Aminotransferase 31 U/L (0-40); Alkaline Phosphatase 291 U/L (39-117); Anion Gap 12 (12-20); Aspartate Amino Transferase 41 U/L (5-37); Bilirubin Total 12.9 mg/dL (0.0-1.0); Blood Urea Nitrogen 63 mg/dL (9-16); Calcium 8.5 mg/dL (8.4-10.2); Carbon Dioxide 20 mmol/L (22-29); Chloride 110 mmol/L (96-108); Creatinine Clr Calc Pharmacy 40.6; Estimated Glomerular Filt Rate 39; Glucose Random 197 mg/dL (60-115); Magnesium 1.9 mg/dL (1.6-2.6); Potassium 4.6 mmol/L (3.3-5.1); Sodium 137 mmol/L (135-145); Total Protein 5.7 g/dL (6.5-8.0)
[2024-08-08 01:11] LABS: SLIDE REVIEW VERIFIED
[2024-08-08 01:29] LABS: Partial Thromboplastin Time 65.3 SEC (26.0-36.8)
[2024-08-08] MEDS: Lidocaine HCl 2 % Urojet 10 ML JEL.PF.APP TOPICAL (02:57)
--- NOTE | 2024-08-08 02:57 | P.HPHOSP_ITS ---
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 HPI was mostly provided by patient's who was at bedside. The patient has been receiving higher doses of Lasix over the last 3 days as recommended by patient hospice staff. However, patient has swelling has not been improving significantly. Swelling involve all extremities and genitals. The patient report shortness of breath and penile pain. He also mentioned having insomnia and a lot of anxiety. Patient was hospitalized at the beginning of this month there he was found to have respiratory failure secondary to left-sided pleural effusion. A chest tube was placed and it was subsequently removed. expressed that she would like the patient to be admitted to the hospital for better treatment of fluid retention. In the ED, he was found to have stable vital signs. He is currently requiring 2 liters/minute supplemental oxygen which is at baseline. Blood workup including CBC and CMP are no significantly different from those obtained at the beginning of this month except for worsening ammonia level and alk phos. Also, creatinine increased from 1.47-1.73. INR is at baseline. And hemoglobin is trending down from 8.8 to 7.4. CXR showed some congestion. ED tx: Lasix 40 mg IV, albumin 25%. Review of Systems 2 Review of Systems: Yes Unobtainable due to mental condition [facility] Medical History Anemia Congestive heart failure Bilateral pleural effusion Round atelectasis Hyperammonemia Chronic liver failure without hepatic coma Hydrothorax Loculated pleural effusion Antiphospholipid antibody syndrome H/O: CVA (cerebrovascular accident) H/O pleural effusion Nephrolithiasis Diabetes HTN (hypertension) Hepatitis C Family History Father Prostate cancer Mother Diabetes HTN (hypertension) Surgical History Liver transplant recipient History of liver transplant H/O hernia repair History of surgery on arm Hx of colonoscopy Social History Household Members: Spouse Housing: House Are you a primary school child care attendant to a significant other at home: No Do you presently have visiting nurse or other home services: No Alcohol intake: never Comment: at bedside Patient Tobacco Use Status: Former Tobacco user Advance Directives: Yes Advance Directives on File: Yes Advance Directives Date on File: 11/24/06 service: No Current occupational status: employed Meds Allergies Allergy/AdvReac Type Severity Reaction Status Date / Time lisinopril AdvReac Unknown cough Verified 08/07/24 23:58 Active Medications: Current Medications Albumin Human (Kedbumin 25 %) 100 mls @ 100 mls/hr IV Q1H CONSTANTINO Stop: 08/08/24 04:59 Furosemide 200 mg/ Sodium (Chloride) 100 mls @ 1 mls/hr IVCONT .Q24H CONSTANTINO Morphine Sulfate (Morphine Sulfate 2 Mg/Ml Cartridge) 2 mg IVPUSH Q3H PRN; Protocol PRN Reason: Pain, Severe (Pain Scale 7-10) Morphine Sulfate (Morphine Sulfate 2 Mg/Ml Cartridge) 2 mg IVPUSH ONCE ONE; Protocol Stop: 08/08/24 02:55 Sodium Chloride (0.9 % Sodium Chloride Flush 3 Ml Syringe) 3 ml IVFLUSH QSHIFT CONSTANTINO Home Medications ?Medication ?Instructions ?Recorded ?Confirmed ?Last Taken ?Type entecavir 0.5 mg tablet (Baraclude) 0.5 mg PO DAILY 12/22/20 07/22/24 07/21/24 History magnesium oxide 400 mg PO DAILY 12/22/20 07/22/24 07/21/24 History insulin aspart U-100 100 unit/mL See Protocol subcut TID 06/03/23 07/22/24 07/21/24 History (3 mL) subcutaneous pen (Novolog FlexPen U-100 Insulin aspart) lactulose 10 gram/15 mL oral 30 ml PO TID 06/03/23 07/22/24 07/21/24 History solution pantoprazole 40 mg tablet,delayed 40 mg PO BID@0630,1630 06/03/23 07/22/24 07/21/24 History release rifaximin 550 mg tablet (Xifaxan) 550 mg PO BID@0630,1630 06/03/23 07/22/24 07/21/24 History calcium carbonate 600 mg-vitamin 1 cap PO BID 08/26/23 07/22/24 07/21/24 History D3 12.5 mcg (500 unit) capsule (Calcium 600 with Vitamin D3) tacrolimus 1 mg capsule, 0.5 mg PO DAILY@1700 10/16/23 07/22/24 07/21/24 History immediate-release amiloride 5 mg tablet 20 mg PO DAILY 07/22/24 07/22/24 07/21/24 History brimonidine 0.2 % eye drops 1 drp ophthalmic (eye) BID 07/22/24 07/22/24 07/21/24 History fluticasone propionate 50 2 spray intranasal DAILY PRN 07/22/24 07/22/24 07/21/24 History mcg/actuation nasal Allergy Symptoms spray,suspension furosemide 40 mg tablet 40 mg PO DAILY 07/22/24 07/22/24 07/21/24 History insulin glargine 100 unit/mL (3 24 unit subcut BEDTIME 07/22/24 07/22/24 07/21/24 History mL) subcutaneous pen (Lantus Solostar U-100 Insulin) Physical Exam 2 Vital Signs and Narrative: Vital Signs: Last Vital Signs Temp 99 F 08/07/24 23:55 Pulse 82 08/07/24 23:55 Resp 20 08/07/24 23:55 BP 137/55 L 08/08/24 01:03 Pulse Ox 100 08/07/24 23:55 O2 Del Method Nasal Cannula 08/07/24 23:55 Oxygen Flow Rate 2 08/07/24 23:55 BMI result Body Mass Index 0.3 Constitutional - Somnolent., No apparent distress. Jaundiced. Chronically ill. Looks uncomfortable. HEENT - PERRLA, EOMI. Dry oral mucosa. Heart - RRR, No edema Lungs - Normal lung expansion, Normal respiratory effort, No respiratory distress. Decreased breath sound at bases. Abdomen - NT / ND; +BS; No rebound or guarding. Fluid wave. Extremities - Four extremity showing pitting edema. Genitals: Scrotal and penile edema. Skin - Warm/Dry Neurological - Somnolent & oriented x3. No focal weakness grossly noted. Follows simple commands. Answers simple questions appropriately. Psychological - Depressed affect Results Labs 08/08/24 00:39 08/08/24 00:39 Labs: Laboratory Results - last 24 hr 08/08/24 08/08/24 00:39 00:40 MCV 102.3 H MCH 33.6 H MCHC 32.9 RDW 16.8 H Plt Count TNP MPV Not Reportable Immature Gran % (Auto) 0.8 H Neut % (Auto) 79.5 H Lymph % (Auto) 7.2 L [place] % (Auto) 10.4 Eos % (Auto) 1.6 Baso % (Auto) 0.5 Lymph # (Auto) 0.5 L [place] # (Auto) 0.7 Eos # (Auto) 0.1 Baso # (Auto) 0.0 Abs Immat Gran (auto) 0.05 H Absolute Neuts (auto) 5.1 Absolute Nucleated RBC 0.000 Nucleated RBC % (auto) 0.0 Smear Tech's Comments VERIFIED Hold Purple Top SEE NOTE PT 30.2 H INR 2.5 H APTT 65.3 H* D Anion Gap 12 Estim Creat Clear Calc 40.6 Estimated GFR 39 Random Glucose 197 H Calcium 8.5 Magnesium 1.9 Total Bilirubin 12.9 H AST 41 H ALT 31 Alkaline Phosphatase 291 H Ammonia 69 H Total Protein 5.7 L Albumin 2.0 L Assessment and Plan (1) Anasarca: Status: Acute (2) Liver failure: Qualifiers: Hepatic coma status: without hepatic coma Liver failure chronicity: c hronic Qualified Code(s): K72.10 - Chronic hepatic failure without coma Status: Acute Plan Lucas Duenas is a 74 years old man history of anticardiolipin antibody syndrome, hepatitis B and C, liver cirrhosis status post liver transplant in 2010, status post TIPS (not a candidate for re-transplant) admitted with: * Anasarca secondary to hypoalbuminemia. Admit to hospitalist service. Pulse oximetry. Start Lasix IV infusion. Continue albumin IV and amiloride. Insert indwelling urinary catheter for strict I&O. Low-salt diet. * Type 2 diabetes mellitus. Diabetic diet. Blood glucose monitoring before meals at bedtime. Insulin sliding scale. * Hepatitis-B, chronic. On entecavir. * Worsening anemia. Continue to monitor hemoglobin, WBC and platelets. * Chronic thrombocytopenia. Continue to monitor platelets level. * HFpEF. Continue supplemental oxygen. On Lasix IV infusion. * Decompensated CHF. Continue rifaximin and lactulose. * Elevated ammonia. Patient is currently oriented x3. * Hx of liver transplant. On tacrolimus. DVT prophylaxis: SCDs only GI prophylaxis: Protonix IV Code status: DNR/DNI Patient will need hospitalization for at least 2 midnights for anasarca treatment with IV Lasix and albumin. He will need close monitoring of vital signs. Quality Stroke Does the patient have a stroke diagnosis?: No VTE Prior VTE?: No VTE Risk Level:: Medical - moderate - high VTE Device Contraindication: N/A - Device Ordered VTE Drug Contraindication: Treatment Not Tolerated
[2024-08-08] MEDS: Morphine Sulfate 2 MG/ML CARTRIDGE IVPUSH (03:19)
--- NOTE | 2024-08-08 03:38 | PC.NURSE ---
cedillo placed per MD order pt tolerated well. pt agreeable to attempt for second iv line as albumin and lasix not compatible. 3x attempt and unable to establish. MD notified to hold off on lasix drip until all of albumin infused. pharmacy notified to change order. pt medicated per jan for pain. at bedside. call ochoa within reach.
--- NOTE | 2024-08-08 04:23 | PC.NURSE ---
Addendum entered by Jacqueline Reid 08/08/24 05:42: pt is reporting chest pressure. per md to offer pt prn tylenol, noted to md pts pain level is greater than the prn protocol pain scale of 1-3. ordered 1 time dose of tylenol po and pt/ refusing stating this is chest pressure and not pain so he does not need pain medication and tylenol is not good for his liver. notified. Per MD via tigerconnect suggested maybe related to anxiety, RN checked in with pt again. pt refusing offered meds. this RN suggested provider come speak with patient and to reestablish plan of care. provider stated she would come at first opportunity. dry charge process attendant and mapping supervisor made aware. Addendum entered by Jacqueline Reid 08/08/24 05:03: per ok to administer prn dose of morphine. pt refused states its not effective. notified. MD also made aware pt requesting to speak to MD. per remove the cedillo. pt in agreement. cedillo removed. pt states pain relieved. Original Note: pt reports extreme pain with MD mamadou notified.
[2024-08-08] MEDS: Furosemide 200 MG in 0.9 % Sodium Chloride 80 ML IVCONT (06:33)
[2024-08-08] MEDS: Pantoprazole Sodium 40 MG/10 ML VIAL IVPUSH ×2 (06:33→16:32)
--- NOTE | 2024-08-08 08:53 | PM.EVENT ---
Event Note Date of Service: 08/08/24 Event Note: Lucas Duenas is a 74 years old man history of anticardiolipin antibody syndrome, hepatitis B and C, liver cirrhosis status post liver transplant in 2010, status post TIPS (not a candidate for re-transplant) admitted with: Anasarca secondary to hypoalbuminemia. Lasix IV infusion. Continue albumin IV and amiloride. Insert indwelling urinary catheter for strict I&O. Low-salt diet. GI consultation Type 2 diabetes mellitus. Diabetic diet. Blood glucose monitoring before meals at bedtime. Insulin sliding scale. Hepatitis-B, chronic. On entecavir. Worsening anemia. Continue to monitor hemoglobin, WBC and platelets. Chronic thrombocytopenia. Continue to monitor platelets level. HFpEF. Continue supplemental oxygen. On Lasix IV infusion. Decompensated CHF. Continue rifaximin and lactulose. Elevated ammonia. Patient is currently oriented x3. Hx of liver transplant. On tacrolimus. DVT prophylaxis: SCDs only GI prophylaxis: Protonix IV Code status: DNR/DNI Patient will need hospitalization for at least 2 midnights for anasarca treatment with IV Lasix and albumin. He will need close monitoring of vital signs. Time Spent With Patient Time: Total time managing care of this patient today ____ minutes.
--- NOTE | 2024-08-08 09:47 | PHA.MEDREC ---
Addendum entered by Sharri Mccauley RPh 08/08/24 10:30: reviewed by [facility]. Original Note: Pharmacy Consult ? Medication Reconciliation Pharmacy has completed the medication reconciliation. Spoke with Alina () at bedside through an paper grader and she confirmed all of his medications. She confirmed amiloride dosing, lantus 24 units at bedtime, and novolog SS. She only gives him lactulose once daily d/t going to the bathroom plenty of times with that dose. The extra 20 mg of lasix was for 3 days only, with today being the last day but he did not get it at home today. He has not used any of the hospice medications (lorazepam, hyoscyamine, bisacodyl supp, haloperidol, tylenol supp) besides the morphine which she has been giving him about three times per day.
[2024-08-08 10:28] LABS: Mean Corpuscular HGB Conc 32.6 g/dl (31.0-36.0); Mean Corpuscular Hemoglobin 33.9 pg (27.0-33.0); PLT CLUMP 1; Red Blood Count 1.74 X10*6/uL (4.60-5.80); Red Cell Distribution Width 16.6 % (11.0-16.0)
[2024-08-08 10:38] LABS: Hemoglobin 5.9 g/dl (14.0-18.0)
[2024-08-08 10:39] LABS: Hematocrit 18.1 % (42.0-52.0)
[2024-08-08 10:46] LABS: White Blood Count 3.3 X10*3/uL (4.8-10.8)
[2024-08-08 11:25] LABS: Alanine Aminotransferase 22 U/L (0-40); Albumin Level 3.3 g/dL (3.5-5.0); Alkaline Phosphatase 177 U/L (39-117); Anion Gap 13 (12-20); Aspartate Amino Transferase 36 U/L (5-37); Bilirubin Total 15.2 mg/dL (0.0-1.0); Blood Urea Nitrogen 63 mg/dL (9-16); Calcium 9.3 mg/dL (8.4-10.2); Carbon Dioxide 20 mmol/L (22-29); Chloride 110 mmol/L (96-108); Creatinine Clr Calc Pharmacy 47.5; Estimated Glomerular Filt Rate 46; Glucose Random 212 mg/dL (60-115); Magnesium 1.8 mg/dL (1.6-2.6); Potassium 4.7 mmol/L (3.3-5.1); Sodium 138 mmol/L (135-145); Total Protein 6.3 g/dL (6.5-8.0)
[2024-08-08 11:32] LABS: Glucose, Whole Blood 184 mg/dL (60-115)
--- NOTE | 2024-08-08 12:04 | P.CNGI_ITS ---
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 Madeline Lopez) who presented to the hospital for recurrent volume overload. Patient previously has had multiple admissions for similar complaints. More recently was seen in the hospital 2 weeks ago for shortness of breath and recurrent pleural effusions. This time, patient and family report worsening generalized body swelling despite reporting no skipped doses for lasix and amiloride. They do not report any abd pain, N,V or change in bowel habits. Stool has remained brown/mustard color. No hematemesis. Of note - pt previously was on palliative care at home but family would like to re-visit this and at present are ok with any therapeutic interventions. They also plan to discuss this with his transplant youth specialist Dr Correa on appt on 08/13. Noted to have stable vitals. Labs significant for worsening anemia and pancytopenia with hemoglobin of 5.9 this morning INR of 2.5. Chem 7 with total bilirubin of 15.2 which has been his baseline since the beginning of this year. AST 36, ALT 22. Chest x-ray performed overnight shows small bilateral pleural effusions with mild atelectasis. He has been started on Lasix drip to make per hour. He also continues on amiloride 20 mg once daily. Review of Systems 2 Review of Systems: Yes all other systems are reviewed and are negative PMFSH Past Medical History Medical History (Updated 08/09/24 @ 08:06 by Erica Castaneda MD) Anemia Congestive heart failure Bilateral pleural effusion Round atelectasis Hyperammonemia Chronic liver failure without hepatic coma Hydrothorax Loculated pleural effusion Antiphospholipid antibody syndrome H/O: CVA (cerebrovascular accident) H/O pleural effusion Nephrolithiasis Diabetes HTN (hypertension) Hepatitis C Family History Family History Father Prostate cancer Mother Diabetes HTN (hypertension) Surgical History Surgical History Liver transplant recipient History of liver transplant H/O hernia repair History of surgery on arm Hx of colonoscopy Social History Social History Household Members: Spouse and Family Housing: House Are you a primary nursing care attendant to a significant other at home: No Do you presently have visiting nurse or other home services: Yes Alcohol intake: never Comment: bedside Patient Tobacco Use Status: Former Tobacco user Substance Use Type: Prescription Drugs Advance Directives Date on File: 11/24/06 service: No Current occupational status: employed Meds Allergies Allergy/AdvReac Type Severity Reaction Status Date / Time lisinopril AdvReac Unknown cough Verified 08/07/24 23:58 Active Medications: Current Medications Albuterol Sulfate (Albuterol Sulfate 90 Mcg 8 Gm Inhaler) 2 puff INHALE Q6H PRN PRN Reason: shortness of breath or wheezing Brimonidine Tartrate (Brimonidine Tartrate 0.2% Oph 5 Ml Bottle) 1 drop EYE- BOTH BID [facility] Fluticasone Propionate (Fluticasone Propionate Nasal 16 Gm [place]) 2 spray NOSTRIL-B DAILY PRN PRN Reason: Allergy Symptoms Gabapentin (Gabapentin 100 Mg Capsule) 200 mg PO BEDTIME [facility] Glucose (Glucose Gel 15 Gm Gel..Gram.) 15 gm PO Q15M PRN; Protocol PRN Reason: per Hypoglycemia Standing Ord. Haloperidol (Haloperidol 0.5 Mg Tablet) 0.5 mg PO Q4H PRN PRN Reason: nausea/vomiting/agitation Dextrose (D10) 250 mls @ 750 mls/hr IV Q15M PRN; Protocol PRN Reason: per Hypoglycemia Standing Ord. Furosemide 200 mg/ Sodium (Chloride) 100 mls @ 1 mls/hr IVCONT .Q24H [facility] Stop: 08/09/24 04:00 Last Admin: 08/08/24 06:33 Dose: 2 mg/hr, 1 mls/hr Furosemide 200 mg/ Sodium (Chloride) 100 mls @ 1 mls/hr IVCONT .Q24H [facility] Insulin Glargine (Insulin Glargine,Hum.Rec.Anlog 100 Unit/Ml 10 Ml Vial) 24 unit SUBCUT BEDTIME [facility] Insulin Human Lispro (Insulin Lispro 100 Unit/Ml 3 Ml Vial) 0 unit SUBCUT QIDACHS [facility]; Protocol Last Admin: 08/08/24 08:21 Dose: Not Given Lactulose (Lactulose 20 Gm/30 Ml Solution) 20 gm PO DAILY [facility] Magnesium Oxide (Magnesium Oxide 400 Mg Tablet) 400 mg PO BID [facility] Morphine Sulfate (Morphine Sulfate 2 Mg/Ml Cartridge) 2 mg IVPUSH Q3H PRN; Protocol PRN Reason: Pain, Severe (Pain Scale 7-10) Non-Formulary Medication (Amiloride) 20 mg PO DAILY [facility] Non-Formulary Medication (Entecavir [Baraclude]) 0.5 mg PO DAILY [facility] Ondansetron HCl (Ondansetron Hcl 4 Mg/2 Ml Vial) 4 mg IVPUSH Q6H PRN PRN Reason: Nausea and Vomiting Pantoprazole Sodium (Pantoprazole Sodium 40 Mg/10 Ml Vial) 40 mg IVPUSH BID@0630,1630 [facility] Last Admin: 08/08/24 06:33 Dose: 40 mg Rifaximin (Rifaximin 550 Mg Tablet) 550 mg PO BID@0630,1630 [facility] Sodium Chloride (0.9 % Sodium Chloride Flush 3 Ml Syringe) 3 ml IVFLUSH QSHIFT [facility] Last Admin: 08/08/24 08:23 Dose: Not Given Tacrolimus (Tacrolimus 0.5 Mg Capsule) 0.5 mg PO DAILY [facility] Home Medications ?Medication ?Instructions ?Recorded ?Confirmed ?Last Taken ?Type entecavir 0.5 mg tablet (Baraclude) 0.5 mg PO DAILY 12/22/20 08/08/24 08/07/24 History magnesium oxide 400 mg PO BID 12/22/20 08/08/24 07/21/24 History insulin aspart U-100 100 unit/mL See Protocol subcut TID 06/03/23 08/08/24 08/07/24 History (3 mL) subcutaneous pen (Novolog FlexPen U-100 Insulin aspart) lactulose 10 gram/15 mL oral 30 ml PO DAILY 06/03/23 08/08/24 07/21/24 History solution pantoprazole 40 mg tablet,delayed 40 mg PO BID@0630,1630 06/03/23 08/08/24 08/07/24 History release rifaximin 550 mg tablet (Xifaxan) 550 mg PO BID@0630,1630 06/03/23 08/08/24 08/07/24 History amiloride 5 mg tablet 20 mg PO DAILY 07/22/24 08/08/24 07/21/24 History brimonidine 0.2 % eye drops 1 drp ophthalmic (eye) BID 07/22/24 08/08/24 07/21/24 History fluticasone propionate 50 2 spray intranasal DAILY PRN 07/22/24 08/08/24 07/21/24 History mcg/actuation nasal Allergy Symptoms spray,suspension furosemide 40 mg tablet 40 mg PO DAILY 07/22/24 08/08/24 08/07/24 History insulin glargine 100 unit/mL (3 24 unit subcut BEDTIME 07/22/24 08/08/24 08/07/24 History mL) subcutaneous pen (Lantus Solostar U-100 Insulin) acetaminophen 650 mg rectal 650 mg WI Q6H PRN Fever Or Pain 08/08/24 08/08/24 Unknown History suppository bisacodyl 10 mg rectal suppository 10 mg [place] DAILY PRN Constipation 08/08/24 08/08/24 Unknown History fluticasone 250 mcg-salmeterol 50 1 inh inhalation BID 08/08/24 08/08/24 Unknown History mcg/dose blistr powdr for inhalation (Wixela Inhub) furosemide 20 mg tablet 20 mg PO DAILY@1400 08/08/24 08/08/24 08/07/24 History haloperidol 0.5 mg tablet 0.5 mg PO Q4H PRN 08/08/24 08/08/24 Unknown History nausea/vomiting/agitation hyoscyamine sulfate 0.125 mg 0.125 mg sublingual Q4H PRN 08/08/24 08/08/24 Unknown History sublingual tablet Secretions lorazepam 2 mg/mL oral concentrate 0.5 mg PO Q4H PRN Anxiety 08/08/24 08/08/24 Unknown History (Lorazepam Intensol) morphine concentrate 100 mg/5 mL 5 mg PO Q1H PRN pain/comfort 08/08/24 08/08/24 Unknown History (20 mg/mL) oral solution tacrolimus 0.5 mg capsule, 0.5 mg PO DAILY 08/08/24 08/08/24 Unknown History immediate-release Physical Exam 2 Vital Signs: Vital Signs: Last Vital Signs Temp 98.4 F 08/08/24 09:27 Pulse 87 08/08/24 09:27 Resp 16 08/08/24 09:27 BP 142/60 H 08/08/24 09:27 Pulse Ox 100 08/08/24 09:27 O2 Del Method Nasal Cannula 08/08/24 09:27 O2 Flow Rate 2.0 08/08/24 09:27 Oxygen Flow Rate 2 08/07/24 23:55 BMI result Body Mass Index 0.3 Thin frail gent grossly icteric abd soft, mildly distended, nontender Diffuse anasarca with pitting edema up to scrotum in lower extremities, and up to shoulder in upper extremities. Results Labs 08/09/24 05:26 08/09/24 05:26 Labs: Short CBC 08/08/24 08/08/24 Range/Units 00:39 10:06 WBC 6.4 3.3 L (4.8-10.8) X10*3/uL Hgb 7.4 L 5.9 L* D (14.0-18.0) g/dl Hct 22.5 L 18.1 L* (42.0-52.0) % Plt Count TNP TNP BMP 08/08/24 08/08/24 00:39 10:06 Sodium 137 138 Potassium 4.6 4.7 Chloride 110 H 110 H Carbon Dioxide 20 L 20 L BUN 63 H 63 H Creatinine 1.73 H 1.48 H Calcium 8.5 9.3 D Liver Function 08/08/24 08/08/24 Range/Units 00:39 10:06 Total Bilirubin 12.9 H 15.2 H (0.0-1.0) mg/dL AST 41 H 36 (5-37) U/L ALT 31 22 (0-40) U/L Alkaline Phosphatase 291 H 177 H (39-117) U/L Albumin 2.0 L 3.3 L (3.5-5.0) g/dL Assessment and Plan (1) Decompensated cirrhosis: Status: Acute (2) Anasarca: Status: Acute (3) Acute kidney injury: Status: Acute (4) Anemia: Qualifiers: Anemia type: unspecified type Qualified Code(s): D64.9 - Anemia, unspecified Status: Acute Plan Ddx for anemia include esophagitis/gastritis, PUD, PHG, GAVE. Variceal bleeding appears less likely as s/p TIPS and no overt melena. In terms of recurrent volume overload, discussed with family that will likely need adjustment in diuretics as has reduced renal function and may require higher doses of lasix and amiloride than what hes previously been getting. Plan: - Maintain x2 IV access at all times - Transfuse 1u PRBC and recheck CBC - Avoid over-transfusion >7 as that may worsen portal hypertension related bleeding - IV CTX, octreotide and IV PPI - Check urine studies including Clementine, K and Cr - IV Albumin 25% 100 ml QID - Typically diuretics should be on hold for LEBRON on CKD in a pt with cirrhosis but since Cr responding well to diuresis, ok to cont - If H/H cont to decline despite above, may need EGD at [facility] vs tertiary care center - Would also recommend palliative care consultation in-house to clarify goals of care as family wishes to reverse hospice status Thank you for allowing me to participate in his care. Pls do not hesitate to reach out for questions or concerns. Procedures Date of Service Date of Service: 08/09/24
[2024-08-08] MEDS: rifAXIMin 550 MG TABLET PO ×2 (12:30→16:33)
[2024-08-08] MEDS: Lactulose 20 GM/30 ML SOLUTION PO (12:31)
[2024-08-08] MEDS: Tacrolimus 0.5 MG CAPSULE PO (15:25)
[2024-08-08 16:07] LABS: Glucose, Whole Blood 198 mg/dL (60-115)
[2024-08-08] MEDS: Insulin Lispro 100 UNIT/ML 3 ML VIAL SUBCUT ×2 (16:33→21:12)
--- NOTE | 2024-08-08 17:01 | MHC.CM.PN ---
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 HOSPICE BLS TRANSPORT
[2024-08-08] MEDS: ondansetron HCL 4 MG/2 ML VIAL IVPUSH (17:12)
[2024-08-08 18:23] LABS: Hemoglobin 6.9 g/dl (14.0-18.0)
[2024-08-08 18:24] LABS: Hematocrit 20.5 % (42.0-52.0)
[2024-08-08] MEDS: Phytonadione (Vit K1) 10 MG in 0.9 % Sodium Chloride 50 ML 51 MG IV (19:44)
[2024-08-08 20:32] LABS: Glucose, Whole Blood 191 mg/dL (60-115)
--- NOTE | 2024-08-08 20:51 | PC.NURSE ---
Delay in beginning blood infusion in TAR d/t this RN's inabillity to find another RN to sign off d/t staffing (4 RNs on the floor, nurse discharge planner in another room deescalating patient w/security, other RNs in rooms medicating their patients). Once another RN was found, she had difficulty logging in w/her PIN. Blood infusing at this time w/o issue. Pt offers no acute complaints at this time.
--- NOTE | 2024-08-08 20:57 | PM.EVENT ---
Event Note Date of Service: 08/08/24 Event Note: 74 yr old man with LEBRON superimposed on CKD s/p Liver transplant Metabolic acidosis Severe Anemia Transfuse as indicated Check [place] levels Full consult to follow Time Spent With Patient Time: Total time managing care of this patient today ____ minutes.
[2024-08-08] MEDS: Lactulose 20 GM/30 ML SOLUTION 10 GM PO (21:11)
[2024-08-08] MEDS: 0.9 % Sodium Chloride Flush 3 ML SYRINGE IVFLUSH (21:12)
[2024-08-08] MEDS: Insulin Glargine,Hum.rec.anlog 100 UNIT/ML 10 ML VIAL 24 UNIT SUBCUT (21:13)
[2024-08-08] MEDS: Octreotide Acetate 500 MCG in 0.9 % Sodium Chloride 500 ML 50.1 MCG IVCONT (23:07)
[2024-08-09] MEDS: diphenhydrAMINE HCL 50 MG/ML VIAL 12.5 MG IVPUSH (00:29)
[2024-08-09 03:18] VITALS: BP 125/59; PULSE 61; RESP 16; TEMP 37.1; O2SAT 100
[2024-08-09] MEDS: Pantoprazole Sodium 40 MG/10 ML VIAL IVPUSH (05:28)
[2024-08-09] MEDS: rifAXIMin 550 MG TABLET PO (05:29)
[2024-08-09 06:36] LABS: Mean Corpuscular HGB Conc 33.7 g/dl (31.0-36.0); PLT CLUMP 1; Red Blood Count 2.03 X10*6/uL (4.60-5.80); Red Cell Distribution Width 20.4 % (11.0-16.0)
[2024-08-09 06:58] LABS: Anion Gap 13 (12-20); Blood Urea Nitrogen 63 mg/dL (9-16); Calcium 9.3 mg/dL (8.4-10.2); Carbon Dioxide 21 mmol/L (22-29); Chloride 109 mmol/L (96-108); Estimated Glomerular Filt Rate 42; Glucose Random 129 mg/dL (60-115); Potassium 4.7 mmol/L (3.3-5.1); Sodium 138 mmol/L (135-145)
[2024-08-09 07:32] LABS: Hematocrit 20.5 % (42.0-52.0); Hemoglobin 6.9 g/dl (14.0-18.0); White Blood Count 3.1 X10*3/uL (4.8-10.8)
[2024-08-09 07:35] VITALS: BP 128/60; PULSE 59; RESP 16; TEMP 36.6; O2SAT 99
[2024-08-09 07:43] LABS: Glucose, Whole Blood 103 mg/dL (60-115)
[2024-08-09 08:42] VITALS: BP 133/78; PULSE 75; RESP 12; TEMP 37
[2024-08-09] MEDS: Octreotide Acetate 500 MCG in 0.9 % Sodium Chloride 500 ML 50.1 MCG IVCONT (08:56)
[2024-08-09 08:57] VITALS: BP 131/76; PULSE 70; RESP 14; TEMP 36.6
--- NOTE | 2024-08-09 09:15 | P.PNIM_ITS ---
Subjective Subjective Date of Service: 08/09/24 Interval History: Follow up ESLD No hematemesis, hematochezia, or melena Review of Systems Review of Systems: Yes all other systems are reviewed and are negative Physical Exam 2 Vital Signs: Vital Signs: Last Vital Signs Temp 98.6 F 08/09/24 08:42 Pulse 75 08/09/24 08:42 Resp 12 08/09/24 08:42 BP 133/78 08/09/24 08:42 Pulse Ox 99 08/09/24 07:35 O2 Del Method Nasal Cannula 08/09/24 07:35 O2 Flow Rate 2 08/09/24 07:35 Oxygen Flow Rate 2 08/07/24 23:55 BMI result Body Mass Index 30.3 Appearing in no acute distress Jaundice lung sounds are clear to auscultation heart regular rate rhythm, clear S1, S2 positive bowel sounds, abdomen is soft, nontender neuro patient is alert x3, no focal deficits Objective Data Active Medications Albuterol Sulfate (Albuterol Sulfate 90 Mcg 8 Gm Inhaler) 2 puff INHALE Q6H PRN PRN Reason: shortness of breath or wheezing Brimonidine Tartrate (Brimonidine Tartrate 0.2% Oph 5 Ml Bottle) 1 drop EYE- BOTH BID [facility] Last Admin: 08/08/24 22:04 Dose: Not Given Documented By: REBECCA Non-Admin Reason: Patient Refused Fluticasone Propionate (Fluticasone Propionate Nasal 16 Gm [place]) 2 spray NOSTRIL-B DAILY PRN PRN Reason: Allergy Symptoms Gabapentin (Gabapentin 100 Mg Capsule) 200 mg PO BEDTIME [facility] Last Admin: 08/08/24 21:57 Dose: Not Given Documented By: REBECCA Non-Admin Reason: Patient Refused Glucose (Glucose Gel 15 Gm Gel..Gram.) 15 gm PO Q15M PRN; Protocol PRN Reason: per Hypoglycemia Standing Ord. Haloperidol (Haloperidol 0.5 Mg Tablet) 0.5 mg PO Q4H PRN PRN Reason: nausea/vomiting/agitation Dextrose (D10) 250 mls @ 750 mls/hr IV Q15M PRN; Protocol PRN Reason: per Hypoglycemia Standing Ord. Furosemide 200 mg/ Sodium (Chloride) 100 mls @ 1 mls/hr IVCONT .Q24H [facility] Last Admin: 08/09/24 04:46 Dose: Not Given Documented By: REBECCA Non-Admin Reason: IV Running Octreotide Acetate 500 mcg/ (Sodium Chloride) 501 mls @ 50.1 mls/hr IVCONT .Q10H [facility] Last Admin: 08/09/24 08:56 Dose: 50 mcg/hr, 50.1 mls/hr Documented By: JOSE FRANCISCO Insulin Glargine (Insulin Glargine,Hum.Rec.Anlog 100 Unit/Ml 10 Ml Vial) 24 unit SUBCUT BEDTIME [facility] Last Admin: 08/08/24 21:13 Dose: 24 unit Documented By: REBECCA Insulin Human Lispro (Insulin Lispro 100 Unit/Ml 3 Ml Vial) 0 unit SUBCUT QIDACHS [facility]; Protocol Last Admin: 08/09/24 07:50 Dose: Not Given Documented By: JOSE FRANCISCO Non-Admin Reason: No Insulin Coverage Lactulose (Lactulose 20 Gm/30 Ml Solution) 30 gm PO DAILY [facility] Magnesium Oxide (Magnesium Oxide 400 Mg Tablet) 400 mg PO BID [facility] Last Admin: 08/08/24 21:57 Dose: Not Given Documented By: REBECCA Non-Admin Reason: Patient Refused Morphine Sulfate (Morphine Sulfate 2 Mg/Ml Cartridge) 2 mg IVPUSH Q3H PRN; Protocol PRN Reason: Pain, Severe (Pain Scale 7-10) Pt Own (Entecavir [ Baraclude] 0.5 Mg Tablet) 0.5 mg PO DAILY [facility] Last Admin: 08/08/24 15:25 Dose: 0.5 mg Documented By: DORINDA Ondansetron HCl (Ondansetron Hcl 4 Mg/2 Ml Vial) 4 mg IVPUSH Q6H PRN PRN Reason: Nausea and Vomiting Last Admin: 08/08/24 17:12 Dose: 4 mg Documented By: DORINDA Pantoprazole Sodium (Pantoprazole Sodium 40 Mg/10 Ml Vial) 40 mg IVPUSH BID@0630,1630 [facility] Last Admin: 08/09/24 05:28 Dose: 40 mg Documented By: REBECCA Rifaximin (Rifaximin 550 Mg Tablet) 550 mg PO BID@0630,1630 [facility] Last Admin: 08/09/24 05:29 Dose: 550 mg Documented By: REBECCA Sodium Chloride (0.9 % Sodium Chloride Flush 3 Ml Syringe) 3 ml IVFLUSH QSHIFT [facility] Last Admin: 08/09/24 07:50 Dose: Not Given Documented By: JOSE FRANCISCO Non-Admin Reason: IV Running Spironolactone (Spironolactone 25 Mg Tablet) 25 mg PO DAILY [facility] Tacrolimus (Tacrolimus 0.5 Mg Capsule) 0.5 mg PO DAILY [facility] Last Admin: 08/08/24 15:25 Dose: 0.5 mg Documented By: DORINDA Labs 08/09/24 05:26 08/09/24 05:26 Labs: Laboratory Results - last 24 hr 08/08/24 08/08/24 08/08/24 10:06 10:58 11:11 MCV 104.0 H MCH 33.9 H MCHC 32.6 RDW 16.6 H Plt Count TNP MPV Not Reportable Absolute Nucleated RBC 0.000 Nucleated RBC % (auto) 0.0 Anion Gap 13 Estim Creat Clear Calc 47.5 Estimated GFR 46 POC Glucose 184 H Random Glucose 212 H Calcium 9.3 D Magnesium 1.8 Total Bilirubin 15.2 H AST 36 ALT 22 Alkaline Phosphatase 177 H Total Protein 6.3 L Albumin 3.3 L Blood Type A Positive Antibody Screen NEGATIVE Crossmatch See Detail 08/08/24 08/08/24 08/09/24 16:00 20:17 05:26 MCV 101.0 H MCH 34.0 H MCHC 33.7 RDW 20.4 H Plt Count TNP MPV Not Reportable Absolute Nucleated RBC 0.000 Nucleated RBC % (auto) 0.0 Anion Gap 13 Estim Creat Clear Calc 40.0 Estimated GFR 42 POC Glucose 198 H 191 H Random Glucose 129 H Calcium 9.3 Magnesium Total Bilirubin AST ALT Alkaline Phosphatase Total Protein Albumin Blood Type Antibody Screen Crossmatch 08/09/24 07:38 MCV MCH MCHC RDW Plt Count MPV Absolute Nucleated RBC Nucleated RBC % (auto) Anion Gap Estim Creat Clear Calc Estimated GFR POC Glucose 103 Random Glucose Calcium Magnesium Total Bilirubin AST ALT Alkaline Phosphatase Total Protein Albumin Blood Type Antibody Screen Crossmatch Assessment and Plan Plan Lucas Duenas is a 74 years old man history of anticardiolipin antibody syndrome, hepatitis B and C, liver cirrhosis status post liver transplant in 2010, status post TIPS (not a candidate for re-transplant) admitted with: Anasarca secondary to hypoalbuminemia. Lasix IV infusion. Continue albumin IV and amiloride. Low-salt diet. GI consultation> continue octreotide, IV PPI, IV albumin q.i.d., check urine studies, continue diuretics Worsening anemia. 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 Diabetic diet. Blood glucose monitoring before meals at bedtime. Insulin sliding scale. Hepatitis-B, chronic. On entecavir. Chronic thrombocytopenia. Continue to monitor platelets level. HFpEF. Continue supplemental oxygen. On Lasix IV infusion. Decompensated ESLD Continue rifaximin and lactulose. Elevated ammonia. Patient is currently oriented x3. Hx of liver transplant. On tacrolimus. DVT prophylaxis: SCDs only Attending Dr. Mendez Code status: DNR/DNI 357 [place]ime Quality Stroke Does the patient have a stroke diagnosis?: No VTE Prior VTE?: No VTE Risk Level:: Medical - moderate - high VTE Device Contraindication: N/A - Device Ordered VTE Drug Contraindication: Treatment Not Tolerated
[2024-08-09] MEDS: Spironolactone 25 MG TABLET PO (09:23)
[2024-08-09] MEDS: Magnesium Oxide 400 MG TABLET PO (09:23)
[2024-08-09] MEDS: Tacrolimus 0.5 MG CAPSULE PO (09:32)
[2024-08-09] MEDS: Brimonidine Tartrate 0.2% Oph 5 ML BOTTLE 1 DROP EYE-BOTH (09:34)
[2024-08-09] MEDS: Lactulose 20 GM/30 ML SOLUTION 30 GM PO (09:34)
[2024-08-09] MEDS: Morphine Sulfate 2 MG/ML CARTRIDGE IVPUSH (10:29)
[2024-08-09] MEDS: Albumin Human 25 % 100 ML IV (10:30)
[2024-08-09 11:16] VITALS: BP 129/80; PULSE 70; RESP 14; TEMP 36.6
[2024-08-09 11:18] LABS: Glucose, Whole Blood 145 mg/dL (60-115)
--- NOTE | 2024-08-09 13:56 | PM.DS ---
DS: Providers Provider Date of Service: 08/09/24 Date of admission: 08/08/24 02:48 Primary care physician: Amauri Eric MD Consults: 08/08/24 07:48 Consult to Gastroenterology Routine Consulting Provider: Erica Castaneda Reason for consultation: worsening liver cirrhosis 08/08/24 17:51 Consult to Nephrology Routine Consulting Provider: [facility] Reason for consultation: mingo DS: Diagnosis Discharge Diagnosis (1) Decompensated cirrhosis: Status: Acute (2) Anasarca: Status: Acute (3) Acute kidney injury: Status: Acute (4) Anemia: Status: Acute DS: Summary Hospital Course Hospital Course: History and physical as per admitting provider. 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 HPI was mostly provided by patient's who was at bedside. The patient has been receiving higher doses of Lasix over the last 3 days as recommended by patient hospice staff. However, patient has swelling has not been improving significantly. Swelling involve all extremities and genitals. The patient report shortness of breath and penile pain. He also mentioned having insomnia and a lot of anxiety. Patient was hospitalized at the beginning of this month there he was found to have respiratory failure secondary to left-sided pleural effusion. A chest tube was placed and it was subsequently removed. expressed that she would like the patient to be admitted to the hospital for better treatment of fluid retention. In the ED, he was found to have stable vital signs. He is currently requiring 2 liters/minute supplemental oxygen which is at baseline. Blood workup including CBC and CMP are no significantly different from those obtained at the beginning of this month except for worsening ammonia level and alk phos. Also, creatinine increased from 1.47-1.73. INR is at baseline. And hemoglobin is trending down from 8.8 to 7.4. CXR showed some congestion. ED tx: Lasix 40 mg IV, albumin 25%. 74-year-old man with a history of end-stage liver disease at this time decompensated. Has had multiple hospitalizations for this. He presented with anasarca and hypoalbuminemia. He was started on IV Lasix infusion, IV albumin. He developed worsening anemia requiring a total of 3 units of packed red blood cells with continued low hemoglobin and hematocrit. No curt blood noted. 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 There has been discussion with his during the last hospitalization and this 1 regarding end of life care and patient's poor prognosis. At this point she does understand that patient's prognosis is very poor and she would like to take him home with hospice/comfort measures only. Therefore all medication was stopped except for medication for pain or anxiety. Patient will be transported home via ambulance and hospice will see patient likely tomorrow. Other chronic medical problems Diabetes mellitus type 2 Chronic hepatitis-B Chronic thrombocytopenia Heart failure with preserved ejection fraction History of liver transplant Time Attestation Discharge Coordination Time (in mins): 35 Quality: Safe Use of Opioids Does Pt have an Active Cancer Diagnosis on the Problem List?: No Quality: Stroke Does the patient have a stroke diagnosis?: No Physical Exam Vital Signs: Vital Signs: Last Vital Signs Temp 97.9 F 08/09/24 11:16 Pulse 70 08/09/24 11:16 Resp 14 08/09/24 11:16 BP 129/80 08/09/24 11:16 Pulse Ox 99 08/09/24 07:35 O2 Del Method Nasal Cannula 08/09/24 07:35 O2 Flow Rate 2 08/09/24 07:35 Oxygen Flow Rate 2 08/07/24 23:55 BMI result Body Mass Index 30.3 Appearing in no acute distress head is normocephalic atraumatic eyes pupils are PERRLA sclera is icteric, jaundice mouth throat mucous membranes are intact and moist neck is supple no lymphadenopathy, no JVD noted lung sounds are clear to auscultation heart regular rate rhythm, clear S1, S2 positive bowel sounds, abdomen is soft, nontender neuro patient is alert x3, no focal deficits DS: Data Data Completed and Pending Completed studies during hospitalization [Text1]: Procedures Drainage of Left Pleural Cavity with Drainage Device, Percutaneous Approach (07/21/24) Transfusion of Nonautologous Platelets into Peripheral Vein, Percutaneous Approach (07/21/24) Labs on day of discharge: Laboratory Results - last 24 hr 08/08/24 08/08/24 08/08/24 10:58 16:00 17:42 WBC RBC Hgb 6.9 L* Hct 20.5 L* MCV MCH MCHC RDW Plt Count MPV Absolute Nucleated RBC Nucleated RBC % (auto) Sodium Potassium Chloride Carbon Dioxide Anion Gap BUN Creatinine Estim Creat Clear Calc Estimated GFR POC Glucose 198 H Random Glucose Calcium Blood Type A Positive Antibody Screen NEGATIVE Crossmatch See Detail 08/08/24 08/09/24 08/09/24 20:17 05:26 07:38 WBC 3.1 L RBC 2.03 L Hgb 6.9 L* Hct 20.5 L* MCV 101.0 H MCH 34.0 H MCHC 33.7 RDW 20.4 H Plt Count TNP MPV Not Reportable Absolute Nucleated RBC 0.000 Nucleated RBC % (auto) 0.0 Sodium 138 Potassium 4.7 Chloride 109 H Carbon Dioxide 21 L Anion Gap 13 BUN 63 H Creatinine 1.60 H Estim Creat Clear Calc 40.0 Estimated GFR 42 POC Glucose 191 H 103 Random Glucose 129 H Calcium 9.3 Blood Type Antibody Screen Crossmatch 08/09/24 11:08 WBC RBC Hgb Hct MCV MCH MCHC RDW Plt Count MPV Absolute Nucleated RBC Nucleated RBC % (auto) Sodium Potassium Chloride Carbon Dioxide Anion Gap BUN Creatinine Estim Creat Clear Calc Estimated GFR POC Glucose 145 H Random Glucose Calcium Blood Type Antibody Screen Crossmatch Discharge Plan Discharge Anticipated Discharge Date/Time: 08/09/24 13:48 Patient Disposition: Hospice - Home Discharge Diagnosis: Anasarca Hypoalbuminemia Decompensated End-stage liver disease Coagulopathy Worsening anemia Acute kidney injury Chronic hepatitis-B Referrals: Amauri Eric MD [Primary Care Provider] - 1 Week Discharge Medications: Continued morphine concentrate 100 mg/5 mL (20 mg/mL) solution 5 mg PO Q1H PRN (Reason: pain/comfort) haloperidol 0.5 mg tablet 0.5 mg PO Q4H PRN (Reason: nausea/vomiting/agitation) acetaminophen 650 mg suppository 650 mg GA Q6H PRN (Reason: Fever Or Pain) lorazepam [Lorazepam Intensol] 2 mg/mL concentrate 0.5 mg PO Q4H PRN (Reason: Anxiety) Discontinued entecavir [Baraclude] 0.5 mg tablet 0.5 mg PO DAILY magnesium oxide 400 mg magnesium Tablet 400 mg PO BID furosemide 20 mg tablet 20 mg PO DAILY@1400 Rx Instructions: x3 days Last day: 08/08/24 tacrolimus 0.5 mg capsule 0.5 mg PO DAILY fluticasone propion-salmeterol [Wixela Inhub] 250-50 mcg/dose blister with device 1 inh inhalation BID bisacodyl 10 mg suppository 10 mg GA DAILY PRN (Reason: Constipation) hyoscyamine sulfate 0.125 mg tablet, sublingual 0.125 mg sublingual Q4H PRN (Reason: Secretions) pantoprazole 40 mg tablet,delayed release (DR/EC) 40 mg PO BID@0630,1630 insulin aspart U-100 [Novolog FlexPen U-100 Insulin] 100 unit/mL (3 mL) insulin pen See Protocol subcut TID Protocol: Insulin Correction Scale Less than or equal to 110 ---- Give (units): 0 111 to 150 Give (units): 0 151 to 200 Give (units): 2 201 to 250 Give (units): 4 251 to 300 Give (units): 6 301 to 350 Give (units): 8 Greater than 350 Give (units): 10 Call MD if Blood Glucose > : 350 Rx Instructions: 4-12 units per slinging scale lactulose 10 gram/15 mL solution 30 ml PO DAILY Xifaxan 550 mg tablet 550 mg PO BID@0630,1630 furosemide 40 mg tablet 40 mg PO DAILY amiloride 5 mg tablet 20 mg PO DAILY brimonidine 0.2 % drops 1 drp ophthalmic (eye) BID Rx Instructions: Both eyes fluticasone propionate 50 mcg/actuation spray,suspension 2 spray intranasal DAILY PRN (Reason: Allergy Symptoms) insulin glargine [Lantus Solostar U-100 Insulin] 100 unit/mL (3 mL) insulin pen 24 unit subcut BEDTIME albuterol sulfate 90 mcg/actuation HFA aerosol inhaler 2 inh inhalation Q6H PRN (Reason: shortness of breath or wheezing) 30 Days Qty: 18 12RF gabapentin 100 mg capsule 200 mg PO BEDTIME 30 Days Qty: 60 3RF Discharge Orders: Discharge Order (Routine); Ordered 08/09/24 Ordered By: Albertina Rosen Diet: Advance to usual diet Activity on Discharge: As tolerated Stand Alone Forms: Patient Portal Discharge page Print Language: Guatemalan Care Plan Goals: All of your medications have been stopped except for medications for pain, discomfort and anxiety and agitation Se encinas suspendido todos douglas medicamentos, excepto los medicamentos para el dolor y ansiedad Health Concerns: Anasarca Hypoalbuminemia Decompensated End-stage liver disease Coagulopathy Worsening anemia Acute kidney injury Chronic hepatitis-B Plan of Treatment: Home with hospice Assessment: See discharge summary
--- NOTE | 2024-08-09 14:05 | MHC.CM.PN ---
CM MET WITH PTS AND FAMILY AT BEDSIDE WITH A RENTAL CLERK [employer] EQUIPMENT PTS SAYS SHE WOULD LIKE TO TAKE HIM HOME TODAY SHE IS AWARE HLC IS NOT AVAILABLE TODAY AND WILL LIKELY NOT BE ABLE TO READMIT UNTIL FRIDAY SHE SAYS SHE HAS ALL OF THE DME AND MEDS AT HOME ALREADY HE WAS ON HOSPICE TECHNICAL DOCUMENTATION SPECIALIST [facility] HAS CONFIRMED THEY WILL CANCEL COLLECTION OF THE DME SINCE THE PT IS GOING TO SIGN BACK ONTO SERVICE [facility] TRANSPORT HAS BEEN ARRANGED FOR 1700 HOURS VIA [facility]
[2024-08-09 15:12] VITALS: RESP 16
== END 2024-08-09 17:32 | disposition hospice, home (50) | DRG 441 ==
LOC: HO.ED 08-08 00:10 → HO.EDOVER 08-08 02:56 → HO.S3 08-08 07:47
PROVIDERS: Admitting Provider Internal Medicine; Emergency Provider Internal Medicine; PCP Internal Medicine; Visit Provider Nurse Practitioner Acute Care
DX: T86.42 Liver transplant failure (principal); I50.33 Acute on chronic diastolic (congestive) heart failure; D68.61 Antiphospholipid syndrome; J96.11 Chronic respiratory failure with hypoxia; B18.1 Chronic viral hepatitis B without delta-agent; N17.9 Acute kidney failure, unspecified; Z51.5 Encounter for palliative care; Z66 Do not resuscitate; D69.6 Thrombocytopenia, unspecified; D64.9 Anemia, unspecified; E88.09 Other disorders of plasma-protein metabolism, not elsewhere classified; K74.60 Unspecified cirrhosis of liver; I11.0 Hypertensive heart disease with heart failure; E11.9 Type 2 diabetes mellitus without complications; Z99.81 Dependence on supplemental oxygen; Z87.891 Personal history of nicotine dependence; Z79.621 Long term (current) use of calcineurin inhibitor; Z79.899 Other long term (current) drug therapy
CPT/HCPCS: 36415; 71045; 80048; 80053; 82140; 82947; 83735; 85014; 85018; 85025; 85027; 85610; 85730; 86850; 86900; 86901; 86923; 99285; J1200; J1940; J2270; J2354; J2405; J2470; J3430; P9016; P9047

== ENCOUNTER → 2024-08-08 02:48 | Outpatient (BNV) | payer MEDICARE, SELFPAY | PROVIDERS: Admitting Provider Internal Medicine; Emergency Provider Internal Medicine; PCP Internal Medicine; Visit Provider Internal Medicine | DX: K72.10 Chronic hepatic failure without coma (principal); R60.1 Generalized edema; E11.9 Type 2 diabetes mellitus without complications | CPT/HCPCS: 99223; 99239; 99499 ==

== ENCOUNTER → 2024-08-08 02:48 | Outpatient (BNV) | payer MEDICARE, SELFPAY | PROVIDERS: Admitting Provider Internal Medicine; Emergency Provider Internal Medicine; PCP Internal Medicine; Visit Provider Internal Medicine | DX: K72.90 Hepatic failure, unspecified without coma (principal); K74.60 Unspecified cirrhosis of liver; R60.1 Generalized edema; N17.9 Acute kidney failure, unspecified; D64.9 Anemia, unspecified | CPT/HCPCS: 99223 ==